=== PATIENT | male | born 1930 | race African-American/Black ===

== ENCOUNTER → 2016-11-20 | Outpatient (CLI) | payer MEDICARE ==
[2014-09-18 14:30] VITALS: BP 95/65
[~2016-11-20] MED LIST: ASCO500T2 PO; ASPI-630 PO; CHOL100016 PO; CRESTOR10 MG PO; DIGO125T16 PO; FERR325T3 PO; FEXO60TA10 PO; GLIM4TAB2 PO; LISI10TA2 PO; LISI2.5T PO; METF500T4 PO; METO100T11 PO; NIAC1000 PO; OMEG500C PO; OMEP20CA5 PO; OSEL75CA PO; SPIR25TA3 PO; WARF4TAB7 PO; WARF5TAB7 PO
--- NOTE | 2016-11-20 15:59 | CARD ---
APPROVED REPORT EXAM: Two-dimensional and M-mode echocardiogram with Doppler and color Doppler. Other Information Quality : Average Rhythm : Atrial Fibrillation INDICATION Sick sinus syndrome Surgery/Intervention Pacemaker: 2D DIMENSIONS RVDd3.8 (2.9-3.5cm)Left Atrium(2D)5.0 (1.6-4.0cm) IVSd1.3 (0.7-1.1cm)Aortic Root(2D)4.2 (2.0-3.7cm) LVDd4.6 (3.9-5.9cm)LVOT Diameter2.7 (1.8-2.4cm) PWd1.1 (0.7-1.1cm)LVDs3.1 (2.5-4.0cm) FS (%) 22.9 %SV59.4 ml LVEF(%)51.5 (>50%) Aortic Valve AoV Peak Pedro.94.5cm/sAoV VTI18.1cm AO Peak GR.3.6mmHgLVOT Peak Pedro.84.1cm/s LVOT VTI 16.35cmAO Mean GR.2mmHg RAINE (VMAX)4.86ec4LMB (VTI)4.99cm2 Mitral Valve MV E Jzioazrk637.5cm/sMV DECEL RIMI809ht MV GYY73juGXS (PHT)4.67cm2 TDI E/Lateral E'8.7E/Medial E'15.6 Tricuspid Valve TR P. Fbngriwk108kv/sRAP AIGFRQCX10iuOv TR Peak Gr.97jySoWLSF88nxAp LEFT VENTRICLE The left ventricle is normal size. There is mild concentric left ventricular hypertrophy. Left ventri aminta systolic function is low normal. The Ejection Fraction is 50-55%. RIGHT VENTRICLE The right ventricle is mildly dilated. Systolic function is mildly reduced. There is a pacemaker lead in the right ventricle. ATRIA The left atrium is mild to moderately dilated. The right atrium is moderately to moderately severely dilated. A pacemaker is seen in the right atrium consistent with history. The interatrial septum is i ntact with no evidence for an atrial septal defect or patent foramen ovale as noted on 2-D or Doppler imaging. AORTIC VALVE The aortic valve is calcified but opens well. Doppler and Color Flow revealed trace aortic regurgitat ion. There is no significant aortic valvular stenosis. MITRAL VALVE The mitral valve is normal in structure and function. There is no evidence of mitral valve prolapse. There is no mitral valve stenosis. Doppler and Color-flow revealed moderate mitral regurgitation. TRICUSPID VALVE The tricuspid valve is normal in structure and function. Doppler and Color Flow revealed moderate tri cuspid regurgitation. The PA pressure was estimated at 60 mmHg. There is no tricuspid valve stenosis. PULMONIC VALVE The pulmonary valve is normal in structure and function. Doppler and Color Flow revealed mild pulmoni c valvular regurgitation. There is no pulmonic valvular stenosis. GREAT VESSELS The aortic root is enlarged at 4.2 cm. The ascending aorta is mildly dilated at 4.0 cm. The IVC is di lated and collapses <50% with inspiration. PERICARDIAL EFFUSION There is moderate left pleural effusion. There is no evidence of significant pericardial effusion. Critical Notification Critical Value: No <Conclusion> The left ventricle is normal size. Left ventricle systolic function is low normal. The Ejection Fraction is 50-55%. There is mild concentric left ventricular hypertrophy. The right atrium is moderately to moderately severely dilated. A pacemaker is seen in the right atrium consistent with history. There is no significant aortic valvular stenosis. Doppler and Color Flow revealed trace aortic regurgitation. Doppler and Color-flow revealed moderate mitral regurgitation. Doppler and Color Flow revealed moderate tricuspid regurgitation. The PA pressure was estimated at 60 mmHg. The aortic root is enlarged at 4.2 cm. The ascending aorta is mildly dilated at 4.0 cm.
== END | disposition home or self-care (01) ==
LOC: ECHO 13:15
PROVIDERS: ATTEND Internal Medicine Cardiovascular Disease
DX: I08.3 Combined rheumatic disorders of mitral, aortic and tricuspid valves (principal); I49.5 Sick sinus syndrome
CPT/HCPCS: 93306

== ENCOUNTER → 2018-06-11 | Outpatient (CLI) | payer MEDICARE ==
[2017-11-10 10:56] VITALS: BP 115/60
[~2018-06-11] MED LIST changes: +ATOR40TA59 PO; -DIGO125T16 PO; +DIGO125T79 PO; +DOCU-109 PO; +HYDR-3164 PO; +METF500T16 PO; -METF500T4 PO; +METO-247 PO; -METO100T11 PO; +METO100T7 PO; +PSYL575P4 PO; +REGADENOSON 0.4 MG/5 ML DISP.SYRIN. IV ONE; -SPIR25TA3 PO; +SPIR25TA5 PO; +TAMS0.4C2 PO; +WARF-31 PO; +WARF4TAB64 PO; -WARF4TAB7 PO; -WARF5TAB7 PO
--- NOTE | 2018-06-11 12:32 | RAD ---
MR#: [id number] Date of Study: 06/11/2018 Ordering Physician: SHAWN PARKER, Referring Physician: CHERELLE LOGAN Tech: ZAINA Fairchild, ARRT (R) (N) APPROVED REPORT Test Type: Pharmacological Stress Nurse/Tech: Abelardo Ferro RN Test Indications: CAD Cardiac History: heart disease, PPM Medications: SEE EMR Medical History: DM Resting ECG: afib underlying; V-paced Resting Heart Rate: 52 bpm Resting Blood Pressure: 113/65mmHg Pretest Chest Pain: No chest pain Nurse/Tech Notes lung sounds clear; S1 S2 Consent: The procedure was explained to the patient in lay terms. Informed consent was witnessed. Kvng eout was entered into [employer]. History and Stress Test performed by RT Adarsh (R) (N) Pharm. Details Pharmacologic stress testing was performed using 0.4mg per 5ml of regadenoson given intravenously ove r 7-10 seconds. Stress Symptoms Pt c/o of CP 2/10 at Stage R at 00:55. This was relieved to 0/10 by Stage R at 01:55. POST EXERCISE Reason for Termination: Infusion complete Max HR: 126 bpm Max Blood Pressure: 122/61mmHg Chest Pain: Yes. See stress symptoms Arrhythmia: No. occassional PVC ST Change: No. no change from resting EKG INTERPRETATION Stress EKG Conclusion: Baseline paced EKG, non-diagnostic. Imaging Protocol IMAGE PROTOCOL: Rest Tc-99m/stress Tc-99m 1 day Rest: Stress: Viability: Radiopharm.Tc99m KsjciuswdKg10s Sestamibi Zpzo81oGt 33mCi Img Date 06/11/2018 06/11/2018 Inj-Img Huds67zdn. 60min. Rest Admin Site:IV - Right AntecubitalAdministrator:RT Adarsh (R)(N) Stress Admin Site: IV - Right AntecubitalAdministrator: RT Adarsh (R)(N) STRESS DATA End Diast. Vol.144.0mlLVEDV index BSA69.0ml End Syst. Vol.47.0mlLVESV index BSA23.0ml Myocardial Jwnj988.0gEject. Fnqibruo33.0% Stress Scores Regional WT0.00Summed WT1.00 Regional WM0.00Summed WM3.00 LV Perfusion There is a small to moderate sized apical severe perfusion defect that is mostly reversible. Due to g ut artifact and pacing this may be a false positive result but cannot rule out inderlying ischemia/in farct. Wall Motion Grossly normal. EF 65% LV Perf. Quant 17 Seg. SSS8.00 17 Seg. SRS8.00 17 Seg. SDS5.00 Stress Defect Extent (% LAD)26.30Rest Defect Extent (% LAD)5.60Rev. Defect Extent (% LAD)23.10 Stress Defect Extent (% LCX) 28.80Rest Defect Extent (% LCX)22.50Rev. Defect Extent (% LCX)21.30 Stress Defect Extent (% RCA)11.10Rest Defect Extent (% RCA)35.60Rev. Defect Extent (% RCA)2.20 Stress Defect Extent (% DARI)25.20Rest Defect Extent (% DARI)18.70Rev. Defect Extent (% DARI)17.60 Other Information Quality:Average Risk Assessment: Moderate Risk Conclusion 1. Non-diagnostic EKG due to pacing artifact 2. Small to moderate sized, mostly reversible apical perfusion defect suggestive of mild ischemia and prior infarct. (Due to subdiaphragmatic activity, artifact cannot be ruled out) 3. Normal EF at > 65% 4. Moderate risk study Signed by : Prosper Naranjo, Electronically Approved : 06/11/2018 12:32:18
== END | disposition home or self-care (01) ==
LOC: NM 07:34
PROVIDERS: ATTEND Internal Medicine Cardiovascular Disease
DX: I25.10 Atherosclerotic heart disease of native coronary artery without angina pectoris (principal); E11.9 Type 2 diabetes mellitus without complications; I49.3 Ventricular premature depolarization; Z95.0 Presence of cardiac pacemaker; Z79.01 Long term (current) use of anticoagulants
CPT/HCPCS: 78452; 93017; 96374; A9500; J2785

== ENCOUNTER 2018-08-12 06:47 | Outpatient (CLI) | payer MEDICARE ==
[~2018-08-12] VITALS: Ht 182.9 cm; Wt 89.4 kg
[2018-08-12] VITALS (14 sets, daily range): BP systolic 91–135; BP diastolic 55–77
[~2018-08-12 06:47] MED LIST changes: -ATOR40TA59 PO; -DOCU-109 PO; -HYDR-3164 PO; -PSYL575P4 PO; -REGADENOSON 0.4 MG/5 ML DISP.SYRIN. IV ONE
[2018-08-12] MEDS ORDERED: ATOR40TA59 PO (07:09)
[2018-08-12 07:47] LABS: HEMATOCRIT 45.6 % (39.0-53.0); HEMOGLOBIN 14.2 g/dL (13.0-17.5); RED BLOOD COUNT 4.88 x10^6/uL (4.30-5.70); RED CELL DISTRIBUTION WIDTH 14.6 % (11.5-14.5); WHITE BLOOD COUNT 8.8 x10^3/uL (4.0-11.0)
[2018-08-12] MEDS ORDERED: IODIXANOL 320 MG/ML 100 ML VIAL. ONE ×2 (07:50→09:33)
[2018-08-12] MEDS ORDERED: LIDOCAINE 1% PF 2 ML VIAL. ONE (07:50)
[2018-08-12 08:08] LABS: CALCIUM 9.5 mg/dL (8.5-10.1); CREATININE 1.1 mg/dL (0.7-1.3); GFR 76.8; POTASSIUM 3.8 mmol/L (3.5-5.1)
[2018-08-12] MEDS ORDERED: MIDAZOLAM HCL/PF 2 MG/2 ML VIAL. ONE (08:24)
[2018-08-12] MEDS ORDERED: NITROGLYCERIN 200 MCG/2 ML SYRINGE FOR CATH/VASC LAB. ONE (08:24)
[2018-08-12] MEDS ORDERED: VERAPAMIL 5 MG/2 ML VIAL. ONE (08:24)
[2018-08-12] MEDS ORDERED: fentaNYL PF VIAL 100 MCG/2 ML VIAL ONE (08:24)
[2018-08-12] MEDS ORDERED: HEPARIN for IV BOLUS 10,000 UNIT/10 ML VIAL. ONE (08:24)
[2018-08-12] MEDS ORDERED: LIDOCAINE 1% Multi-Dose 20 ML VIAL. ONE (09:24)
[2018-08-12] MEDS ORDERED: LIDOCAINE 1% PF 2 ML VIAL. INJ ONE (09:45)
[2018-08-12] MEDS ORDERED: VERAPAMIL 5 MG/2 ML VIAL. IART ONE (09:45)
[2018-08-12] MEDS ORDERED: IODIXANOL 320 MG/ML 100 ML VIAL. IART ONE (09:45)
[2018-08-12] MEDS ORDERED: fentaNYL PF VIAL 100 MCG/2 ML VIAL IV ONE (09:45)
[2018-08-12] MEDS ORDERED: MIDAZOLAM HCL/PF 2 MG/2 ML VIAL. IV ONE (09:45)
[2018-08-12] MEDS ORDERED: HEPARIN for IV BOLUS 10,000 UNIT/10 ML VIAL. IART ONE (09:45)
[2018-08-12] MEDS ORDERED: NITROGLYCERIN 200 MCG/2 ML SYRINGE FOR CATH/VASC LAB. IART ONE (09:45)
[2018-08-12] MEDS ORDERED: LIDOCAINE 1% Multi-Dose 20 ML VIAL. INJ ONE (09:45)
[2018-08-12] MEDS ORDERED: IV 1/2 NORMAL SALINE 1,000 ML IV SCH (10:08)
--- NOTE | 2018-08-12 10:08 | PDOC ---
MODERATE SEDATION ASSESSMENT RISKS/ALTERNATIVES Risks/Alternatives Risks and alternatives of this type of sedation and procedure discussed with: RISK/ALTERNATIVES: Patient H & P ON CHART H & P H & P on chart and reviewed for co-morbid conditions and appropriate labs. H&P ON CHART: Yes STATUS PREG STATUS ASSESSED: N/A MEDS/ALLERGIES REVIEWED Meds/Allergies Reviewed Medications and Allergies including time and route of recently administered narcotics and sedatives. MEDS/ALLERGIES REVIEWED: Yes ASA RATING ASA RATING: II AIRWAY ASSESSMENT Airway Assessment Airway patency, oral function limitations, presence of caps, crowns, dentures, partials, and ability to extend neck assessed. AIRWAY ASSESSMENT: Yes MALLAMPATI SCORE MALLAMPATI SCORE: II PRE-SEDATION ASSESSMENT PRE-SEDATION ASSESSMENT: Yes SHAWN PARKER MD August 12, 2018 10:08
--- NOTE | 2018-08-12 10:21 | CARD ---
MR#: [id number] Date of Study: 08/12/2018 Ordering Physician: SHAWN SANTOYO, Referring Physician: SHAWN SANTOYO Tech: RT Verónica (R) APPROVED REPORT Technologist: RT Verónica (R) Nurse: Maryam Vaca R.N. Procedure(s) performed: Left heart catheterization, selective coronary angiography and left ventricul ography INDICATION The indication(s) include : Chest pain and positive stress test. Heart Failure Heart Failure: No PROCEDURE NARRATIVE After explaining the risks, benefits and alternative options, informed consent was obtained from mikhail ent. Patient was brought to the cardiac [employer] and right wrist was prepped and draped in the usual fashion after confirming a positive modified Renzo's test. Arterial access was obtained in the rig t radial artery and a 6 Surinamese sheath was inserted. 6 Surinamese JL 3.5 catheter was used to perform vish ective angiography of the left coronary artery. Several attempts to engage the right coronary artery using 6 Surinamese Sixto followed by 6 Surinamese JR4, 3 DRC, AL 0.75 guide were unsuccessful due to combina tion of subclavian tortuosity and patient's tall stature. His right groin was prepped and draped, 10 mL of 2% lidocaine infiltrated into the skin and subcutaneous tissues and arterial access was obtaine d the right common femoral artery with placement of 6 Surinamese sheath. Subsequently, 6 Surinamese AL 0.75 c atheter was used to perform selective angiography of the right coronary artery. Finally, 6 Surinamese pig tail catheter was used to perform left ventriculography. Patient tolerated the procedure well. Hemos tasis was achieved using TR band in the right wrist and mynx closure device in the right groin. Ther e were no immediate complications. The following findings were noted. FINDINGS 1. Hemodynamics: Left ventricular end-diastolic pressure of 13 mmHg. No pullback gradient across th e aortic valve. 2. Left ventriculography: Normal left ventricle systolic function with ejection fraction estimated at 60%. No significant mitral regurgitation seen. 3. Coronary angiography: a. The left main coronary artery arose from the left sinus of Valsalva, gave rise to the left anteri or descending and left circumflex arteries and did not show any significant stenosis. b. The left anterior descending artery showed 100% chronic total occlusion in the midsegment with fa int distal reconstitution from left to left collaterals, described in prior cardiac catheterization. c. The left circumflex artery did not show any significant stenosis. d. The right coronary artery was a large and dominant vessel arising from the right sinus of Valsalv a that did not show any significant stenosis. Conclusion 1. 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 No other stenoses were noted. 2. Normal left ventricle systolic function with ejection fraction estimated at 60%. Recommendations Medical Therapy Signed by : Shawn Santoyo, Electronically Approved : 08/12/2018 10:21:02
--- NOTE | 2018-08-12 11:34 | NUR ---
Pt c/o firm area 2 inches above the groin site, in the lower right abdominal area, with pain at this area. Pt groin site dressing c/d/i, at the insertion site right groin soft; without oozing, bruising, or swelling. Area of firmness 2 inches above the groin site, was softened with holding pressure for [address] Santoyo notified and he assessed pt. Abdominal area soft and WNL after holding pressure. Right abdominal ultrasound ordered stat.
--- NOTE | 2018-08-12 12:15 | RAD ---
Limited duplex sonography of the right lower extremity Clinical indications: Right groin pain and hardness after catheterization. FINDINGS: Duplex sonography of the right groin area was performed including grayscale evaluation and color flow and waveform spectral analysis. Normal-appearing right groin lymph node is seen measuring 29 mm in greatest dimension. Within the area of hardness of the right groin, a complex solid appearing mass lesion is seen measuring 6.1 cm x 4.3 cm x 4.0 cm in size. This is located superficial to the right common femoral artery and right common femoral vein and both of these vessels are patent. There is no color Doppler flow is seen extending into this mass and therefore no pseudoaneurysm is seen. Therefore, this is consistent with a hematoma. IMPRESSION: Hematoma of the right groin. No pseudoaneurysm is evident. Electronically signed by: Carson Medrano MD (08/12/2018 12:11 PM) [facility]
--- NOTE | 2018-08-12 13:38 | NUR ---
Discharge Note: FEARSJR,EDDIECCL Discharge instructions and discharge home medications reviewed with Patient and a copy given. All questions have been answered and understanding verbalized. The following instructions and handouts were given: radial site care, groin site care, moderate sedation. Discontinued left AC PIV. Patient discharged to home with family
[2018-09-09] MEDS ORDERED: HYDR-3164 PO (13:10)
[2018-09-09] MEDS ORDERED: DOCU-109 PO (13:12)
[2018-09-09] MEDS ORDERED: PSYL575P4 PO (13:12)
== END 2018-08-12 13:40 | disposition home or self-care (01) ==
LOC: CCL 06:47
PROVIDERS: ATTEND Internal Medicine Cardiovascular Disease
DX: I25.10 Atherosclerotic heart disease of native coronary artery without angina pectoris (principal); I25.82 Chronic total occlusion of coronary artery
CPT/HCPCS: 36415; 80048; 85027; 85610; 93458; 93926; 99152; 99153; C1769; C1887; C1892; J1644; J2250; J3010; J3490; Q9967; C1760; G0269; C1771

== ENCOUNTER → 2018-09-06 | Outpatient (CLI) | payer MEDICARE ==
[2018-08-12 13:34] VITALS: BP 110/66
[~2018-09-06] MED LIST changes: +ATOR40TA59 PO; +DOCU-109 PO; +HYDR-3164 PO; +PSYL575P4 PO
[2018-09-06 13:42] LABS: BASO # 0.1 x10^3/uL (0.0-0.2); BASO % 2 % (0-3); EOS # 0.1 x10^3/uL (0.0-0.7); EOS % 2 % (0-3); HEMATOCRIT 40.1 % (39.0-53.0); HEMOGLOBIN 12.6 g/dL (13.0-17.5); LYMPH # 1.5 x10^3/uL (1.0-4.8); LYMPH % 21 % (24-48); MEAN CORPUSCULAR HEMOGLOBIN 30 pg (25-35); MEAN CORPUSCULAR HGB CONC 31 g/dL (31-37); MEAN CORPUSCULAR VOLUME 94 fL (79-100); MONO # 0.5 x10^3/uL (0.0-1.1); MONO % 7 % (0-9); NEUT # 4.8 x10^3uL (1.8-7.7); NEUT % 69 % (31-73); PLATELET COUNT 367 x10^3/uL (140-400); RED BLOOD COUNT 4.26 x10^6/uL (4.30-5.70); RED CELL DISTRIBUTION WIDTH 15.8 % (11.5-14.5); WHITE BLOOD COUNT 7.1 x10^3/uL (4.0-11.0)
[2018-09-06 13:55] LABS: PROTHROMBIN TIME PATIENT 18.8 SEC (11.7-14.0)
[2018-09-06 14:51] LABS: ALBUMIN 3.1 g/dL (3.4-5.0); ALBUMIN/GLOBULIN RATIO 0.9 (1.0-1.7); CALCIUM 9.1 mg/dL (8.5-10.1); CREATININE 1.1 mg/dL (0.7-1.3); GFR 76.8; POTASSIUM 3.9 mmol/L (3.5-5.1); TOTAL BILIRUBIN 0.9 mg/dL (0.2-1.0); TOTAL PROTEIN 6.7 g/dL (6.4-8.2)
== END | disposition home or self-care (01) ==
LOC: SURGPAT 13:05
PROVIDERS: ATTEND Specialist
DX: K40.90 Unilateral inguinal hernia, without obstruction or gangrene, not specified as recurrent (principal); E11.9 Type 2 diabetes mellitus without complications; I11.0 Hypertensive heart disease with heart failure; I50.9 Heart failure, unspecified; Z79.899 Other long term (current) drug therapy
CPT/HCPCS: 36415; 80053; 85025; 85610

== ENCOUNTER → 2018-09-09 | Day surgery (SDC) | payer MEDICARE ==
[~2018-09-09] VITALS: Ht 182.9 cm; Wt 88.5 kg
[~2018-09-09] MED LIST changes: +BUPIVAC MPF-EPI 0.5%-1:200000 30 ML VIAL. ONE; +DEXAMETHASONE SOD PHOS 4 MG/ML VIAL ONE; +GLYCOPYRROLATE 1 MG/5 ML SYRINGE. ONE; +GLYCOPYRROLATE 1 MG/5 ML VIAL. ONE; +HYDROcodone/APAP 5/325MG 1 TAB TABLET PO ONE; +HYDROmorphone 2 MG/ML VIAL IV PRN; +IV RINGERS,LACTATED 1000ML 1,000 ML IV SCH; +LIDOCAINE 1% PF 2 ML VIAL. ID PRN; +LIDOCAINE 2% PF 5 ML VIAL. ONE; +MORPHINE SULFATE 2 MG/ML VIAL. IV PRN; +NEOSTIGMINE METHYLSULFATE 5 MG/5 ML SYRINGE. ONE; +ONDANSETRON PF 4 MG/2 ML VIAL. IV PRN; +ONDANSETRON PF 4 MG/2 ML VIAL. ONE; +PROCHLORPERAZINE 10 MG/2 ML VIAL. IV PRN; +PROPOFOL 20 ML IV ONE; +ROCURONIUM 50 MG/5 ML VIAL. ONE; +SEVOFLURANE 61 TO 120 MINUTES. IH ONE; +SEVOFLURANE > 120 MINUTES. IH ONE; +ceFAZolin 1GM IVPB FOR OMNI 1 GM/50 ML BAG IV ONE; +fentaNYL PF VIAL 100 MCG/2 ML VIAL IV PRN; +fentaNYL PF VIAL 100 MCG/2 ML VIAL ONE
--- NOTE | 2018-09-09 06:44 | PREOP HP ---
DATE OF SERVICE: 09/09/2018 HISTORY OF PRESENT ILLNESS: The patient is referred because of left inguinal mass that is becoming larger and being more painful. Apparently, the history shows that he had a small mass in the right groin for some years. It has gotten larger with time and now causes him pain and tenderness when he increases intraabdominal pressure. The GI function has been normal. He does notice a mass there in the left inguinal area. PAST MEDICAL HISTORY: Shows normal childhood diseases. I think he does have hypertension and does have a pacemaker in for cardiovascular disease. He has had a laparoscopic cholecystectomy done in the past and also has had vein stripping done many years ago. He has not had other surgery. ALLERGIES: No allergies. MEDICATIONS: He does take medicine for hypertension and cardiovascular disease, but no other medicine. SOCIAL HISTORY: Shows that he does not drink, smoke or use illicit drugs. FAMILY HISTORY: Noncontributory relative to this. REVIEW OF SYSTEMS: Negative except for this pain in the right groin. He does have difficulty walking as he is I think about 89 years old, I do not have his date. PHYSICAL EXAMINATION: GENERAL: Shows an alert male in no acute distress. HEAD, EARS, EYES, NOSE AND THROAT: Grossly normal. CHEST: Clear to auscultation. HEART: I could see the pacemaker that was in place and he did have a systolic murmur, about a 2/6 systolic murmur at the mitral area. I did not hear anything in the aortic area and no diastolic blow. ABDOMEN: Negative. No hernia from previous surgery on the laparoscopic procedure. In the right groin, there was a mass that was tender to touch. That was not red, hot, or excruciating. It did reduce somewhat when he laid down, but could not get it totally reduced. The testicles were otherwise unremarkable as was the penis. EXTREMITIES: Grossly normal. IMPRESSION: 1. 1. Arteriosclerotic heart disease. 2. 2. Hypertension. 3. 3. Left inguinal hernia. ALQUITA INFANTE MD DR: QUIANA/lorraine JOB#: [id number] / [id number] CHLOE
[2018-09-09 09:18] LABS: BASO # 0.1 x10^3/uL (0.0-0.2); BASO % 1 % (0-3); EOS # 0.2 x10^3/uL (0.0-0.7); EOS % 3 % (0-3); HEMATOCRIT 39.6 % (39.0-53.0); HEMOGLOBIN 12.7 g/dL (13.0-17.5); LYMPH # 1.5 x10^3/uL (1.0-4.8); LYMPH % 22 % (24-48); MEAN CORPUSCULAR HEMOGLOBIN 30 pg (25-35); MEAN CORPUSCULAR HGB CONC 32 g/dL (31-37); MEAN CORPUSCULAR VOLUME 94 fL (79-100); MONO # 0.6 x10^3/uL (0.0-1.1); MONO % 9 % (0-9); NEUT # 4.6 x10^3uL (1.8-7.7); NEUT % 65 % (31-73); PLATELET COUNT 307 x10^3/uL (140-400); RED BLOOD COUNT 4.21 x10^6/uL (4.30-5.70)
--- NOTE | 2018-09-09 09:28 | PDOC ---
SURGICAL PROGRESS NOTE Subjective No change in dictated H&P. Vital Signs Vital Signs Date Time Temp Pulse Resp B/P (MAP) Pulse Ox O2 Delivery O2 Flow Rate FiO2 09/09/18 08:49 97.2 53 16 137/76 96 Room Air 97.2 Labs Laboratory Tests Test 09/09/18 08:30 09/09/18 09:00 Prothrombin Time 17.0 SEC (11.7-14.0) Prothromb Time International Ratio 1.4 (0.8-1.1) Activated Partial Thromboplast Time 37 SEC (24-38) White Blood Count 7.0 x10^3/uL (4.0-11.0) Red Blood Count 4.21 x10^6/uL (4.30-5.70) Hemoglobin 12.7 g/dL (13.0-17.5) Hematocrit 39.6 % (39.0-53.0) Mean Corpuscular Volume 94 fL (79-100) Mean Corpuscular Hemoglobin 30 pg (25-35) Mean Corpuscular Hemoglobin Concent 32 g/dL (31-37) Red Cell Distribution Width 16.0 % (11.5-14.5) Platelet Count 307 x10^3/uL (140-400) Neutrophils (%) (Auto) 65 % (31-73) Lymphocytes (%) (Auto) 22 % (24-48) Monocytes (%) (Auto) 9 % (0-9) Eosinophils (%) (Auto) 3 % (0-3) Basophils (%) (Auto) 1 % (0-3) Neutrophils # (Auto) 4.6 x10^3uL (1.8-7.7) Lymphocytes # (Auto) 1.5 x10^3/uL (1.0-4.8) Monocytes # (Auto) 0.6 x10^3/uL (0.0-1.1) Eosinophils # (Auto) 0.2 x10^3/uL (0.0-0.7) Basophils # (Auto) 0.1 x10^3/uL (0.0-0.2) Laboratory Tests Test 09/09/18 08:30 09/09/18 09:00 Prothrombin Time 17.0 SEC (11.7-14.0) Prothromb Time International Ratio 1.4 (0.8-1.1) Activated Partial Thromboplast Time 37 SEC (24-38) White Blood Count 7.0 x10^3/uL (4.0-11.0) Red Blood Count 4.21 x10^6/uL (4.30-5.70) Hemoglobin 12.7 g/dL (13.0-17.5) Hematocrit 39.6 % (39.0-53.0) Mean Corpuscular Volume 94 fL (79-100) Mean Corpuscular Hemoglobin 30 pg (25-35) Mean Corpuscular Hemoglobin Concent 32 g/dL (31-37) Red Cell Distribution Width 16.0 % (11.5-14.5) Platelet Count 307 x10^3/uL (140-400) Neutrophils (%) (Auto) 65 % (31-73) Lymphocytes (%) (Auto) 22 % (24-48) Monocytes (%) (Auto) 9 % (0-9) Eosinophils (%) (Auto) 3 % (0-3) Basophils (%) (Auto) 1 % (0-3) Neutrophils # (Auto) 4.6 x10^3uL (1.8-7.7) Lymphocytes # (Auto) 1.5 x10^3/uL (1.0-4.8) Monocytes # (Auto) 0.6 x10^3/uL (0.0-1.1) Eosinophils # (Auto) 0.2 x10^3/uL (0.0-0.7) Basophils # (Auto) 0.1 x10^3/uL (0.0-0.2) LAQUITA INFANTE MD Sep 09, 2018 09:28
--- NOTE | 2018-09-09 09:31 | PDOC ---
SURGICAL PROGRESS NOTE Subjective Op Note: Surgeon.....................................Infante Pre op diag.................................left inguinal hernia Post op diag...............................left inguinal hernia...incarcerated anesthesia.................................General Procedure..................................repair incarc. left inguinal hernia Drains........................................none Fluids........................................see anesthesia sheet Blood loss.................................15cc Condition...................................satisfactorily Vital Signs Vital Signs Date Time Temp Pulse Resp B/P (MAP) Pulse Ox O2 Delivery O2 Flow Rate FiO2 09/09/18 08:49 97.2 53 16 137/76 96 Room Air 97.2 Labs Laboratory Tests Test 09/09/18 08:30 09/09/18 09:00 Prothrombin Time 17.0 SEC (11.7-14.0) Prothromb Time International Ratio 1.4 (0.8-1.1) Activated Partial Thromboplast Time 37 SEC (24-38) White Blood Count 7.0 x10^3/uL (4.0-11.0) Red Blood Count 4.21 x10^6/uL (4.30-5.70) Hemoglobin 12.7 g/dL (13.0-17.5) Hematocrit 39.6 % (39.0-53.0) Mean Corpuscular Volume 94 fL (79-100) Mean Corpuscular Hemoglobin 30 pg (25-35) Mean Corpuscular Hemoglobin Concent 32 g/dL (31-37) Red Cell Distribution Width 16.0 % (11.5-14.5) Platelet Count 307 x10^3/uL (140-400) Neutrophils (%) (Auto) 65 % (31-73) Lymphocytes (%) (Auto) 22 % (24-48) Monocytes (%) (Auto) 9 % (0-9) Eosinophils (%) (Auto) 3 % (0-3) Basophils (%) (Auto) 1 % (0-3) Neutrophils # (Auto) 4.6 x10^3uL (1.8-7.7) Lymphocytes # (Auto) 1.5 x10^3/uL (1.0-4.8) Monocytes # (Auto) 0.6 x10^3/uL (0.0-1.1) Eosinophils # (Auto) 0.2 x10^3/uL (0.0-0.7) Basophils # (Auto) 0.1 x10^3/uL (0.0-0.2) Laboratory Tests Test 09/09/18 08:30 09/09/18 09:00 Prothrombin Time 17.0 SEC (11.7-14.0) Prothromb Time International Ratio 1.4 (0.8-1.1) Activated Partial Thromboplast Time 37 SEC (24-38) White Blood Count 7.0 x10^3/uL (4.0-11.0) Red Blood Count 4.21 x10^6/uL (4.30-5.70) Hemoglobin 12.7 g/dL (13.0-17.5) Hematocrit 39.6 % (39.0-53.0) Mean Corpuscular Volume 94 fL (79-100) Mean Corpuscular Hemoglobin 30 pg (25-35) Mean Corpuscular Hemoglobin Concent 32 g/dL (31-37) Red Cell Distribution Width 16.0 % (11.5-14.5) Platelet Count 307 x10^3/uL (140-400) Neutrophils (%) (Auto) 65 % (31-73) Lymphocytes (%) (Auto) 22 % (24-48) Monocytes (%) (Auto) 9 % (0-9) Eosinophils (%) (Auto) 3 % (0-3) Basophils (%) (Auto) 1 % (0-3) Neutrophils # (Auto) 4.6 x10^3uL (1.8-7.7) Lymphocytes # (Auto) 1.5 x10^3/uL (1.0-4.8) Monocytes # (Auto) 0.6 x10^3/uL (0.0-1.1) Eosinophils # (Auto) 0.2 x10^3/uL (0.0-0.7) Basophils # (Auto) 0.1 x10^3/uL (0.0-0.2) LAQUITA INFANTE MD Sep 09, 2018 09:31
[2018-09-09 09:37] LABS: CALCIUM 9.3 mg/dL (8.5-10.1); GFR 85.7; POTASSIUM 3.9 mmol/L (3.5-5.1)
[2018-09-09 09:51] LABS: ALBUMIN 3.1 g/dL (3.4-5.0); ALBUMIN/GLOBULIN RATIO 0.9 (1.0-1.7); TOTAL PROTEIN 6.6 g/dL (6.4-8.2)
[2018-09-09 10:51] LABS: PLT ESTIMATE ADEQUATE (ADEQUATE)
[2018-09-09 13:29] VITALS: BP 115/66
--- NOTE | 2018-09-10 12:57 | OP ---
DATE OF SURGERY: 09/09/2018 SURGEON: Edmundo Infante M.D. PREOPERATIVE DIAGNOSIS: Incarcerated left inguinal hernia. POSTOPERATIVE DIAGNOSIS: Incarcerated left inguinal hernia. ANESTHESIA: General. PROCEDURE: Repair of incarcerated left inguinal hernia, had actually herniations on both sides of the cord structures at the internal inguinal ring. TECHNIQUE: Under general anesthesia, the patient was properly prepped and draped in the routine fashion. A skin incision following the skin lines in the right groin was done with a 15 blade and carried through the skin. The subcutaneous was then dissected in the similar direction, going beneath the Ruy's fascia down to the external aponeurosis of the oblique. A small incision was made in the direction of the fibers with a 15 blade and then the scissors were passed under this to make certain we did not injure the nerve and opened this up to the external inguinal ring. The mass and the cord were seen and with decreased pressure, it was reduced. The sac stayed higher. We then dissected the cord structures from the surrounding structures as there were adhesions there. We did this with Metzenbaum scissors and also finger dissection. At the pubic tubercle, we went around the cord structures and placed a [place] drain and divided some of the cremasteric to the cord structures with cautery. The patient has had an elevated INR, which was 1.4 and we, therefore, went a little more cautious to decrease any problem with bleeding. We then slowly dissected the cord. We could see the sac and also a mass lateral to the cord structures. We dissected the lateral one first. It appeared to be only fat, but it was long, being about 6 inches long and about 2 inches wide. This was reduced and inverted when the repair was done. We then dissected the cord structures using Metzenbaum scissors and also pushing the fibers away with gauze pad. We did this well up into the internal inguinal ring and this could be reduced easily. We inspected all areas. There was no further bleeding and as such, an extra-large PerFix plug was placed as the sac was inverted and this was placed in, went up into the internal inguinal ring and sutured in place using 4-0 interrupted Vicryl. A similar procedure was to invert fat structures lateral to the cord. We decided not to amputate this, inverted it and then did a similar procedure to secure it with a well-placed extra-large PerFix plug. We then proceeded to put the patch on at the pubic tubercle. We took two #0 Prolene sutures at the pubic tubercle and the patch. I think the patch was Phasix, as they did not have any other kind at present. We then ran the 1-0 Prolene suture, taking the shelving edge of the Poupart's ligament and the patch and ran it well up past the internal inguinal ring. The medial suture was used as we approximated the transversalis fascia in the patch and ran it well around the internal inguinal ring back to the cord structures. Not mentioned before, we did make an incision in the past so that we can get the cord structures through there. This having been done and the procedure terminated, we now approximated this opening where the cord structure was, so that it would not be too tight for the cord to go through. We did this with interrupted 2-0 Prolene. A 0.5% Marcaine and epinephrine were then used to anesthetize the surgical site at the external oblique aponeurosis and the Poupart's ligament and the transversalis fascia. We did this and then cord structures and all were placed back in its normal position. The nerve was not damaged and all was well. We then closed the external oblique aponeurosis using 2-0 continuous Prolene suture and tied this. This was likewise anesthetized with 0.5% Marcaine and epinephrine. The wound was then irrigated with copious amounts of saline and then the subq was approximated using interrupted 4-0 Vicryl and the skin was closed using a subcuticular 5-0 Vicryl. The procedure was now terminated and sterile Tegaderm dressings were applied. The blood loss during the procedure was probably about 10-12 mL. Fluids given can be obtained from the anesthesia sheet. No drains were used and the condition of the patient was satisfactory as he was returned to the recovery room. EDMUNDO INFANTE MD DR: QUIANA/lorraine JOB#: [id number] / [id number]
== END ==
LOC: SURG 07:40
PROVIDERS: ATTEND Specialist
DX: K40.30 Unilateral inguinal hernia, with obstruction, without gangrene, not specified as recurrent (principal); I10 Essential (primary) hypertension; I25.10 Atherosclerotic heart disease of native coronary artery without angina pectoris
CPT/HCPCS: 49507; A7015; C1781; J0690; J1100; J2001; J2405; J2704; J2710; J3010; J3490; 36415; 80053; 85025; 85610; 85730

== ENCOUNTER 2018-09-12 01:39 | Inpatient (IN) | payer MEDICARE ==
[~2018-09-12] VITALS: Ht 185.4 cm; Wt 88.3 kg
[2018-09-12] VITALS (8 sets, daily range): BP systolic 97–164; BP diastolic 53–98
[~2018-09-12 01:39] MED LIST changes: -BUPIVAC MPF-EPI 0.5%-1:200000 30 ML VIAL. ONE; -DEXAMETHASONE SOD PHOS 4 MG/ML VIAL ONE; -GLYCOPYRROLATE 1 MG/5 ML SYRINGE. ONE; -GLYCOPYRROLATE 1 MG/5 ML VIAL. ONE; -HYDROcodone/APAP 5/325MG 1 TAB TABLET PO ONE; -HYDROmorphone 2 MG/ML VIAL IV PRN; -IV RINGERS,LACTATED 1000ML 1,000 ML IV SCH; -LIDOCAINE 1% PF 2 ML VIAL. ID PRN; -LIDOCAINE 2% PF 5 ML VIAL. ONE; -MORPHINE SULFATE 2 MG/ML VIAL. IV PRN; -NEOSTIGMINE METHYLSULFATE 5 MG/5 ML SYRINGE. ONE; -ONDANSETRON PF 4 MG/2 ML VIAL. IV PRN; -ONDANSETRON PF 4 MG/2 ML VIAL. ONE; -PROCHLORPERAZINE 10 MG/2 ML VIAL. IV PRN; -PROPOFOL 20 ML IV ONE; -ROCURONIUM 50 MG/5 ML VIAL. ONE; -SEVOFLURANE 61 TO 120 MINUTES. IH ONE; -SEVOFLURANE > 120 MINUTES. IH ONE; -ceFAZolin 1GM IVPB FOR OMNI 1 GM/50 ML BAG IV ONE; -fentaNYL PF VIAL 100 MCG/2 ML VIAL IV PRN; -fentaNYL PF VIAL 100 MCG/2 ML VIAL ONE
[2018-09-12] MEDS ORDERED: VANCOMYCIN PER PHARMACY MC PRN (02:15)
[2018-09-12] MEDS ORDERED: IV NORMAL SALINE 1000ML BAG 1,000 ML IV ONE ×2 (02:30→20:15)
[2018-09-12] MEDS ORDERED: PIPERACILLIN/TAZOBACTAM 4.5 GM in IV NORMAL SALINE 100ML 100 ML IV ONE (02:30)
[2018-09-12] MEDS ORDERED: ACETAMINOPHEN 500 MG TABLET PO ONE (02:30)
[2018-09-12 02:31] LABS: BASO # 0.1 x10^3/uL (0.0-0.2); BASO % 1 % (0-3); EOS % 0 % (0-3); HEMATOCRIT 38.1 % (39.0-53.0); HEMOGLOBIN 12.1 g/dL (13.0-17.5); LYMPH % 6 % (24-48); MEAN CORPUSCULAR HEMOGLOBIN 30 pg (25-35); MEAN CORPUSCULAR HGB CONC 32 g/dL (31-37); MEAN CORPUSCULAR VOLUME 94 fL (79-100); MONO # 0.6 x10^3/uL (0.0-1.1); MONO % 4 % (0-9); NEUT # 14.2 x10^3uL (1.8-7.7); NEUT % 90 % (31-73); PLATELET COUNT 305 x10^3/uL (140-400); RED BLOOD COUNT 4.05 x10^6/uL (4.30-5.70); RED CELL DISTRIBUTION WIDTH 15.8 % (11.5-14.5); WHITE BLOOD COUNT 15.8 x10^3/uL (4.0-11.0)
[2018-09-12 02:37] LABS: PROTHROMBIN TIME PATIENT 21.2 SEC (11.7-14.0)
[2018-09-12] MEDS ORDERED: IV NORMAL SALINE 1000ML BAG 2,340 ML IV SCH (02:47)
--- NOTE | 2018-09-12 02:47 | PHYS DOC ---
Past Medical History Past Medical History: A-Fib, CAD, CHF, Diabetes-Type II, High Cholesterol, Heart Disease, Hypertension Additional Past Medical Histor: CPAP @ NOC, Past Surgical History: Cholecystectomy, Pacemaker Additional Past Surgical Histo: LEG VEINS, hernia repair, Pacemaker Alcohol Use: None Drug Use: None Adult General Chief Complaint Chief Complaint: FEVER HPI HPI Patient is an 87-year-old male who presents tonight with altered mental status, slurred speech and fever. Patient was in the hospital recently with hernia repair. Family states he's been coughing and had some complaints of shortness of breath. Tonight the states he was just not acting himself and she was concerned that he may have had a stroke. Denies any nausea or vomiting. He states he has not been eating normally.[] Review of Systems Review of Systems Constitutional: Reports fever[] Eyes: Denies change in visual acuity, redness, or eye pain [] HENT: Denies nasal congestion or sore throat [] Respiratory: Reports a cough[] Cardiovascular: No additional information not addressed in HPI [] GI: Denies abdominal pain, nausea, vomiting, bloody stools or diarrhea [] : Denies dysuria or hematuria [] Musculoskeletal: Denies back pain or joint pain [] Integument: Denies rash or skin lesions [] Neurologic: Some slurred speech[] Endocrine: Denies polyuria or polydipsia [] All other systems were reviewed and found to be within normal limits, except as documented in this note. Current Medications Current Medications Current Medications Medications (Trade) Dose Ordered Sig/Rakesh Start Time Stop Time Status Last Admin Dose Admin Acetaminophen (Tylenol) 1,000 mg 1X ONCE 09/12/18 02:30 09/12/18 02:31 DC 09/12/18 03:11 1,000 MG Piperacillin Sod/ Tazobactam Sod 4.5 gm/Sodium Chloride 100 ml @ 200 mls/hr 1X ONCE 09/12/18 02:30 09/12/18 02:59 DC 09/12/18 03:03 200 MLS/HR Sodium Chloride 1,000 ml @ 1,000 mls/hr 1X ONCE 09/12/18 02:30 09/12/18 03:29 DC 09/12/18 03:02 1,000 MLS/HR Vancomycin HCl (Vanco Per Pharmacy) 1 each PRN DAILY PRN 09/12/18 02:15 09/12/18 13:38 DC 09/12/18 05:25 1 EACH Allergies Allergies Allergies Coded Allergies Type Severity Reaction Last Updated Verified No Known Drug Allergies 09/09/18 No Physical Exam Physical Exam Constitutional: Frail, elderly, appears acutely ill. [] HENT: Normocephalic, atraumatic, bilateral external ears normal, uterus membranes are dry, no oral exudates, nose normal. [] Eyes: PERRLA, EOMI, conjunctiva normal, no discharge. [] Neck: Normal range of motion, no tenderness, supple, no stridor. [] Cardiovascular:Heart rate regular rhythm, no murmur [] Lungs & Thorax: Rales left base, no wheezes[] Abdomen: Bowel sounds normal, soft, no tenderness, no masses, no pulsatile masses. [] Skin: Warm, dry, no erythema, no rash. [] Back: No tenderness, no CVA tenderness. [] Extremities: No tenderness, no cyanosis, no clubbing, ROM intact, no edema. [] Neurologic: Alert, pleasant, normal motor function, normal sensory function, no focal deficits noted. [] Psychologic: Affect normal, judgement normal, mood normal. [] Current Patient Data Vital Signs Vital Signs Date Time Temp Pulse Resp B/P (MAP) Pulse Ox O2 Delivery O2 Flow Rate FiO2 09/12/18 02:15 84 24 132/58 (82) 95 Nasal Cannula 2.0 09/12/18 01:39 103.0 103.0 Lab Values Laboratory Tests Test 09/12/18 01:50 White Blood Count 15.8 x10^3/uL (4.0-11.0) H Red Blood Count 4.05 x10^6/uL (4.30-5.70) L Hemoglobin 12.1 g/dL (13.0-17.5) L Hematocrit 38.1 % (39.0-53.0) L Mean Corpuscular Volume 94 fL (79-100) Mean Corpuscular Hemoglobin 30 pg (25-35) Mean Corpuscular Hemoglobin Concent 32 g/dL (31-37) Red Cell Distribution Width 15.8 % (11.5-14.5) H Platelet Count 305 x10^3/uL (140-400) Neutrophils (%) (Auto) 90 % (31-73) H Lymphocytes (%) (Auto) 6 % (24-48) L Monocytes (%) (Auto) 4 % (0-9) Eosinophils (%) (Auto) 0 % (0-3) Basophils (%) (Auto) 1 % (0-3) Neutrophils # (Auto) 14.2 x10^3uL (1.8-7.7) H Lymphocytes # (Auto) 1.0 x10^3/uL (1.0-4.8) Monocytes # (Auto) 0.6 x10^3/uL (0.0-1.1) Eosinophils # (Auto) 0.0 x10^3/uL (0.0-0.7) Basophils # (Auto) 0.1 x10^3/uL (0.0-0.2) Segmented Neutrophils % 88 % (35-66) H Band Neutrophils % 4 % (0-9) Lymphocytes % 5 % (24-48) L Monocytes % 2 % (0-10) Metamyelocytes % 1 % (0-0) H Platelet Estimate Adequate (ADEQUATE) Giant Platelets Occ Prothrombin Time 21.2 SEC (11.7-14.0) H Prothrombin Time INR 1.9 (0.8-1.1) H PTT 38 SEC (24-38) Sodium Level 140 mmol/L (136-145) Potassium Level 3.4 mmol/L (3.5-5.1) L Chloride Level 105 mmol/L (98-107) Carbon Dioxide Level 23 mmol/L (21-32) Anion Gap 12 (6-14) Blood Urea Nitrogen 22 mg/dL (8-26) Creatinine 1.1 mg/dL (0.7-1.3) Estimated GFR (Cockcroft-Gault) 76.8 BUN/Creatinine Ratio 20 (6-20) Glucose Level 182 mg/dL (70-99) H Lactic Acid Level 1.9 mmol/L (0.4-2.0) Calcium Level 9.1 mg/dL (8.5-10.1) Magnesium Level 1.6 mg/dL (1.8-2.4) L Total Bilirubin 1.3 mg/dL (0.2-1.0) H Direct Bilirubin 0.5 mg/dL (0.0-0.2) H Aspartate Amino Transferase (AST) 23 U/L (15-37) Alanine Aminotransferase (ALT) 14 U/L (16-63) L Alkaline Phosphatase 81 U/L (46-116) Troponin I Quantitative 0.040 ng/mL (0.000-0.055) BW-[id number]-[id number]-Type Natriuretic Peptide 3767 pg/mL (0-449) H Total Protein 6.4 g/dL (6.4-8.2) Albumin 2.8 g/dL (3.4-5.0) L Albumin/Globulin Ratio 0.8 (1.0-1.7) L Laboratory Tests 09/12/18 01:50 Laboratory Tests 09/12/18 01:50 EKG EKG [] Radiology/Procedures Radiology/Procedures [Chest x-ray: Left lower lobe infiltrate as interpreted by me] Course & Med Decision Making Course & Med Decision Making Pertinent Labs and Imaging studies reviewed. (See chart for details) [ED course: Evaluation reveals an ill 87-year-old male. He had 103 temperature on arrival here he was given antipyretics with some resolution of his fever and when his fever did go down his mentation cleared. He was given 30/kg of IV fluids and given the fact that he was recently hospitalized I treated him his healthcare acquired pneumonia. Personally, I thought that the changes in his left lung base looked more like an acute infiltrate rather than scarring or edema. Patient will be admitted to the hospitalist service.] CRITICAL CARE: Time spent was 35 minutes. This includes medical management, evaluation, reevaluation, discussion with consultants and family. Critical Care does NOT include time spent on separately billed procedures. Dragon Disclaimer Dragon Disclaimer This electronic medical record was generated, in whole or in part, using a voice recognition dictation system. Departure Departure Impression: Primary Impression: Pneumonia Additional Impression: Sepsis Disposition: 09 ADMITTED INPATIENT Admitting Physician: HIMS Condition: GUARDED Referrals: DAVID CHAPIN MD (PCP) Problem Qualifiers Primary Impression: Pneumonia Pneumonia type: due to unspecified organism Laterality: left Lung location: lower lobe of lung Qualified Codes: J18.1 - Lobar pneumonia, unspecified organism Additional Impression: Sepsis Sepsis type: sepsis due to unspecified organism Qualified Codes: A41.9 - Sepsis, unspecified organism [address] DO Sep 12, 2018 02:47
[2018-09-12 02:52] LABS: CALCIUM 9.1 mg/dL (8.5-10.1); CREATININE 1.1 mg/dL (0.7-1.3); GFR 76.8; POTASSIUM 3.4 mmol/L (3.5-5.1)
[2018-09-12] MEDS ORDERED: ONDANSETRON PF 4 MG/2 ML VIAL. IV PRN (03:00)
[2018-09-12 03:06] LABS: ALBUMIN 2.8 g/dL (3.4-5.0); ALBUMIN/GLOBULIN RATIO 0.8 (1.0-1.7); DIRECT BILIRUBIN 0.5 mg/dL (0.0-0.2); TOTAL BILIRUBIN 1.3 mg/dL (0.2-1.0); TOTAL PROTEIN 6.4 g/dL (6.4-8.2)
[2018-09-12] MEDS: IV NORMAL SALINE 1000ML BAG 1,000 ML IV SCH ×2 (03:11→04:06)
[2018-09-12] MEDS ORDERED: VANCOMYCIN 2 GM in IV NORMAL SALINE 500ML BAG 500 ML IV ONE (03:30)
[2018-09-12] MEDS ORDERED: HYDROcodone/APAP 5/325MG 1 TAB TABLET PO PRN (04:30)
[2018-09-12 04:51] LABS: % BANDS 4 % (0-9); % LYMPHS 5 % (24-48); % METAS 1 % (0-0); % MONOS 2 % (0-10); % SEGS 88 % (35-66); PLT ESTIMATE ADEQUATE (ADEQUATE)
[2018-09-12] MEDS: HYDROcodone/APAP 5/325MG 1 TAB TABLET PO PRN (04:54)
--- NOTE | 2018-09-12 05:25 | NUR ---
Pharmacy Vancomycin Dosing Note S:Consulted to monitor and dose vancomycin started 09/12/18. O:MAMTA MACIAS is a 87 year old M with Sepsis Pneumonia . Height: 6 feet, 0 inches Weight: 88.378051 kg [place] Body Weight: 77.60 Adjusted Body Weight: 81.96 Dosing Weight: Actual Other Antibiotics: LABS: Last BUN: 22 Last Creatinine: 1.1 Creatinine Clearance: 56 mL/min Last WBC: 15.8 Last Procalcitonin: Tmax (past 24 hours): Microbiology: I/O: Drug Levels: Last level: on at Last dose given 09/12/18 at 0500 Vancomycin Dosing: Loading Dose: 2000 mg x1 Dosing Weight: Actual Target Trough: 15-20 A: Based on: WT AND CRCL P: 1. Begin Vancomycin 1250 mg IV q18h 2. Follow up Trough level on 09/13/18 at 1630 3. Pharmacy will continue to monitor, follow and adjust therapy as needed. RAUL FERNANDEZ RPH, 09/12/18 0525 Signed: 09/12/18 at 0526 by RAUL FERNANDEZ RPH PHA
--- NOTE | 2018-09-12 07:18 | EKG ---
[facility] [address] [place] [address] Test Date: 2018-09-12 Test Time: 02:48:51 Pat Name: MAMTA MACIAS Department: Room: Gender: M Communications Associate: : 1930 Requested By: [address] Order Number: [id number] Reading MD: Measurements Intervals [place] Rate: 85 P: [place]: QRS: -53 QRSD: 106 T: -69 QT: 324 QTc: 390 Interpretive Statements ATRIAL FIBRILLATION ABNORMAL LEFT AXIS DEVIATION LOW LIMB LEAD VOLTAGE LEFT ANTERIOR FASCICULAR BLOCK LVH WITH REPOLARIZATION ABNORMALITY ABNORMAL ECG No previous ECG available for comparison
[2018-09-12] MEDS: IPRATRPIUM/ALBUTEROL 0.5/2.5MG 3 ML NEBU. NEB SCH ×4 (07:45→20:51)
--- NOTE | 2018-09-12 08:18 | RAD ---
EXAM: CHEST 1 VIEW. HISTORY: Fever. COMPARISON: 11/09/2017. FINDINGS: A frontal view of the chest is obtained. A left-sided pacemaker has its leads in the right atrium and right ventricle. Left basilar opacity appears mostly chronic and likely reflects scarring. Blunting of the left costophrenic angle is likely secondary to scarring rather than a small pleural effusion. Right infrahilar opacity may represent mild pulmonary edema or mild infiltrate. There is no pneumothorax or clear pleural effusion. The heart is mildly enlarged. There are atherosclerotic calcifications of the aorta. IMPRESSION: 1. Correlate clinically to differentiate mild pulmonary edema from mild basilar infiltrates or interstitial lung disease. 2. Mild cardiomegaly. Electronically signed by: Ronda Klein MD (09/12/2018 8:15 AM) [facility]
[2018-09-12] MEDS: LACTOBACILLUS RHAMNOSUS GG 1 CAPSULE. PO SCH ×2 (08:22→21:00)
--- NOTE | 2018-09-12 11:00 | NUR ---
Patient's lungs appeared clear upon 0800 assessment. Respiratory visited, mentioned how he appeared. Upon auscultation bilateral coarse breath sounds with expiratory, and lower lobes bilaterally inspiratory and expiratory coarse.
--- NOTE | 2018-09-12 12:19 | PDOC2 ---
BART PAZ [employer] SUPERINTENDENT 09/12/18 1219: CARDIAC CONSULT DATE OF CONSULT Date of Consult DATE: 09/12/18 TIME: 12:02 REASON FOR CONSULT Reason for Consult: CHF REFERRING PHYSICIAN Referring Physician: Dr. Rucker SOURCE Source: Chart review, Patient HISTORY OF PRESENT ILLNESS HISTORY OF PRESENT ILLNESS This is a 87 yo male who presented secondary to cough, tremors, and shortness of breath. and family was concerned so they made him come to the ED for further evaluation and treatment. Patient denies any chest pain, palpitations, dizziness, diaphoresis, or nausea/vomiting. LE's have more more edematous over the last couple of days. Cough seems to be worse with eating. Was previous on diuretic therapy but reports PCP discontinued this about 2 weeks ago. Is unsure as to why. PAST MEDICAL HISTORY Past Medical History Cardiovascular: AFIB (permanent), CAD (occluded LAD with retrograde filling via collaterals), CHF (diastolic), HTN, Hyperlipidemia Pulmonary: COPD, Other (USAMA ) CENTRAL NERVOUS SYSTEM: Other (none) GI: No pertinent hx Heme/Onc: No pertinent hx Hepatobiliary: No pertinent hx Psych: No pertinent hx Musculoskeletal: Osteoarthritis Rheumatologic: No pertinent hx Infectious disease: No pertinent hx ENT: No pertinent hx Renal/: No pertinent hx Endocrine: Diabetes PAST SURGICAL HISTORY Past Surgical History Pacemaker ([employer]), Cholecystectomy, Other (vein stripping; gen change - 2015) FAMILY HISTORY Family History: Heart Disease SOCIAL HISTORY Social History Smoke: No ALCOHOL: none Drugs: None CURRENT MEDICATIONS CURRENT MEDICATIONS Current Medications Medications (Trade) Dose Ordered Sig/Rakesh Route PRN Reason Start Time Stop Time Status Last Admin Dose Admin Piperacillin Sod/ Tazobactam Sod 4.5 gm/Sodium Chloride 100 ml @ 200 mls/hr 1X ONCE IV 09/12/18 02:30 09/12/18 02:59 DC 09/12/18 03:03 Vancomycin HCl (Vanco Per Pharmacy) 1 each PRN DAILY PRN MC SEE COMMENTS 09/12/18 02:15 09/12/18 05:25 Sodium Chloride 1,000 ml @ 1,000 mls/hr 1X ONCE IV 09/12/18 02:30 09/12/18 03:29 DC 09/12/18 03:02 Acetaminophen (Tylenol) 1,000 mg 1X ONCE PO 09/12/18 02:30 09/12/18 02:31 DC 09/12/18 03:11 Vancomycin HCl 2 gm/Sodium Chloride 500 ml @ 250 mls/hr 1X ONCE IV 09/12/18 03:30 09/12/18 05:29 DC 09/12/18 04:59 Sodium Chloride 2,340 ml @ 2,340 mls/hr Q1H IV 09/12/18 02:47 09/12/18 03:06 DC 09/12/18 03:02 Albuterol/ Ipratropium (Duoneb) 3 ml RTQID NEB 09/12/18 08:00 09/13/18 07:59 09/12/18 11:13 Sodium Chloride 1,000 ml @ 1,000 mls/hr Q1H IV 09/12/18 03:06 09/12/18 04:40 DC 09/12/18 04:06 Lactobacillus Rhamnosus (Culturelle) 1 cap BID PO 09/12/18 09:00 09/12/18 08:22 Acetaminophen/ Hydrocodone Bitart (Lortab 5/325) 1 tab PRN Q6HRS PRN PO MODERATE PAIN 09/12/18 04:46 09/12/18 04:54 ALLERGIES ALLERGIES: Coded Allergies: No Known Drug Allergies (Unverified , 09/09/18) Self-report by patient PHYSICAL EXAM PHYSICAL EXAM General: Alert HEENT: Atraumatic Lungs: Clear to auscultation Heart: Other (IRRR; tele: atrial fibrillation ) Abdomen: Soft Extremities: Other (+ edema) Skin: No rashes Neuro: Normal speech Psych/Mental Status: Mood NL MUSCULOSKELETAL: Osteoarthritic changes both hands VITALS VITALS Vital Signs Date Time Temp Pulse Resp B/P (MAP) Pulse Ox O2 Delivery O2 Flow Rate FiO2 09/12/18 11:15 Nasal Cannula 2.0 09/12/18 11:04 98.3 64 20 104/54 (19) 93 98.3 LABS Lab: Laboratory Tests Test 09/12/18 01:50 09/12/18 07:36 White Blood Count 15.8 x10^3/uL (4.0-11.0) Red Blood Count 4.05 x10^6/uL (4.30-5.70) Hemoglobin 12.1 g/dL (13.0-17.5) Hematocrit 38.1 % (39.0-53.0) Mean Corpuscular Volume 94 fL (79-100) Mean Corpuscular Hemoglobin 30 pg (25-35) Mean Corpuscular Hemoglobin Concent 32 g/dL (31-37) Red Cell Distribution Width 15.8 % (11.5-14.5) Platelet Count 305 x10^3/uL (140-400) Neutrophils (%) (Auto) 90 % (31-73) Lymphocytes (%) (Auto) 6 % (24-48) Monocytes (%) (Auto) 4 % (0-9) Eosinophils (%) (Auto) 0 % (0-3) Basophils (%) (Auto) 1 % (0-3) Neutrophils # (Auto) 14.2 x10^3uL (1.8-7.7) Lymphocytes # (Auto) 1.0 x10^3/uL (1.0-4.8) Monocytes # (Auto) 0.6 x10^3/uL (0.0-1.1) Eosinophils # (Auto) 0.0 x10^3/uL (0.0-0.7) Basophils # (Auto) 0.1 x10^3/uL (0.0-0.2) Segmented Neutrophils % 88 % (35-66) Band Neutrophils % 4 % (0-9) Lymphocytes % 5 % (24-48) Monocytes % 2 % (0-10) Metamyelocytes % 1 % (0-0) Platelet Estimate Adequate (ADEQUATE) Giant Platelets Occ Prothrombin Time 21.2 SEC (11.7-14.0) Prothromb Time International Ratio 1.9 (0.8-1.1) Activated Partial Thromboplast Time 38 SEC (24-38) Sodium Level 140 mmol/L (136-145) Potassium Level 3.4 mmol/L (3.5-5.1) Chloride Level 105 mmol/L (98-107) Carbon Dioxide Level 23 mmol/L (21-32) Anion Gap 12 (6-14) Blood Urea Nitrogen 22 mg/dL (8-26) Creatinine 1.1 mg/dL (0.7-1.3) Estimated GFR (Cockcroft-Gault) 76.8 BUN/Creatinine Ratio 20 (6-20) Glucose Level 182 mg/dL (70-99) Lactic Acid Level 1.9 mmol/L (0.4-2.0) Calcium Level 9.1 mg/dL (8.5-10.1) Total Bilirubin 1.3 mg/dL (0.2-1.0) Direct Bilirubin 0.5 mg/dL (0.0-0.2) Aspartate Amino Transf (AST/SGOT) 23 U/L (15-37) Alanine Aminotransferase (ALT/SGPT) 14 U/L (16-63) Alkaline Phosphatase 81 U/L (46-116) Troponin I Quantitative 0.040 ng/mL (0.000-0.055) Total Protein 6.4 g/dL (6.4-8.2) Albumin 2.8 g/dL (3.4-5.0) Albumin/Globulin Ratio 0.8 (1.0-1.7) Glucose (Fingerstick) 123 mg/dL (70-99) ECHOCARDIOGRAM ECHOCARDIOGRAM 11/2016: TTE: The left ventricle is normal size. Left ventricle systolic function is low normal. The Ejection Fraction is 50-55%. There is mild concentric left ventricular hypertrophy. The right atrium is moderately to moderately severely dilated. A pacemaker is seen in the right atrium consistent with history. There is no significant aortic valvular stenosis. Doppler and Color Flow revealed trace aortic regurgitation. Doppler and Color-flow revealed moderate mitral regurgitation. Doppler and Color Flow revealed moderate tricuspid regurgitation. The PA pressure was estimated at 60 mmHg. The aortic root is enlarged at 4.2 cm. The ascending aorta is mildly dilated at 4.0 cm. DATE: 11/08/171708 <Conclusion> The left ventricular systolic function is normal and the ejection fraction is within normal range. The Ejection Fraction is 50-55%. Septal motion suggestive of conduction defect. There are multiple pacemaker lead in the right ventricle. Cannot rule out small PFO on color doppler imaging. Agitated saline study not performed on this imaging study. Doppler and Color Flow revealed moderate tricuspid regurgitation. There is severe pulmonary hypertension. PASP is 85 mmHg. The IVC is dilated and collapses <50% with inspiration. The aortic root is moderately enlarged (4.5 cm). 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 Non-diagnostic EKG due to pacing artifact 2. Small to moderate sized, mostly reversible apical perfusion defect suggestive of mild ischemia and prior infarct. (Due to subdiaphragmatic activity, artifact cannot be ruled out) 3. Normal EF at > 65% 4. Moderate risk study DATE: 06/11/18 1232 HEART CATH HEART CATH 08/2013: Normal left main coronary artery. Single vessel obstructive coronary artery disease encompassing a totally occluded distal left anterior descending coronary artery at its origin. The vessel fills faintly retrograde by intercoronary collaterals from the left circumflex coronary artery system. Left ventricular angiogram was not performed. FINDINGS 1. Hemodynamics: Left ventricular end-diastolic pressure of 13 mmHg. No pullback gradient across the aortic valve. 2. Left ventriculography: Normal left ventricle systolic function with ejection fraction estimated at 60%. No significant mitral regurgitation seen. 3. Coronary angiography: a. The left main coronary artery arose from the left sinus of Valsalva, gave rise to the left anterior descending and left circumflex arteries and did not show any significant stenosis. b. The left anterior descending artery showed 100% chronic total occlusion in the midsegment with faint distal reconstitution from left to left collaterals, described in prior cardiac catheterization. c. The left circumflex artery did not show any significant stenosis. d. The right coronary artery was a large and dominant vessel arising from the right sinus of Valsalva that did not show any significant stenosis. Conclusion 1. 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 No other stenoses were noted. 2. Normal left ventricle systolic function with ejection fraction estimated at 60%. Recommendations Medical Therapy DATE: 08/12/18 1021 ASSESSMENT/PLAN ASSESSMENT/PLAN 1. Leukocytosis, ? PNA 2. Acute on chronic diastolic HF; recent echo with preserved LV systolic function as noted above. 3. CAD; catheterization 08/2018 with NETWORK ASSOCIATE of LAD, which is unchanged from previous cath in 2013. Stable CP free. 4. Permanent AFIB; rate controlled. on warfarin for stroke prevention. INR 1.9 5. 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 Trace) 6. Hypertension; controlled 7. Hyperlipidemia; statin 8. Diabetes, II 9. Hypokalemia 10. ? aspiration; coughing with liquids/eating Recommendations Diuresis Replace K, check Mg and replace as warranted ST evaluation Resume secondary preventions measures BB for rate control Warfarin for stroke prevention Antibiotics as per PCP SHAWN PARKER MD 09/12/18 3742: CARDIAC CONSULT ASSESSMENT/PLAN ASSESSMENT/PLAN Patient seen and examined. Agree with [employer] LAYER's assessment and plan. Acute on chronic diastolic heart failure better compensated with diuresis. Recent 2-D echo showed normal LV systolic function. CAD status clinically stable. Permanent atrial fibrillation rate controlled. Continue warfarin for stroke prophylaxis. Continue treatment for possible aspiration pneumonia per pulmonary team. Thank you for your consultation. BART PAZ APRN Sep 12, 2018 12:19 SHAWN PARKER MD Sep 12, 2018 16:25
--- NOTE | 2018-09-12 12:27 | HP ---
ADMIT DATE: 09/12/2018 CHIEF COMPLAINT: Fever. HISTORY OF PRESENT ILLNESS: The patient is a pleasant 87-year-old male who presented to the ER with a fever. He had some mental status change and slurred speech that came on within the past 12 hours. He had a recent hernia repair. Family stated he had been coughing and having some complaints of shortness of breath. The was concerned he could have had a stroke. While in the ER, we did some chest x-rays and labs as showing that he has pneumonia and sepsis. The patient has now been admitted. PAST MEDICAL HISTORY: Atrial fibrillation, CAD, CHF, diabetes, hyperlipidemia, hypertension, he wears CPAP at night, cholecystectomy, pacemaker, leg vein surgery, hernia repair. ALLERGIES: None. FAMILY HISTORY: Coronary artery disease. SOCIAL HISTORY: He does not drink, smoke or take drugs. MEDICATIONS: Reviewed, please refer to the MRAD. He is on 11 home meds including Flomax, Coumadin, digoxin, atorvastatin, metoprolol, aspirin, [place], Colace, psyllium and vitamins. REVIEW OF SYSTEMS: GENERAL: He complains of intermittent fevers. SKIN: No bruising, hair changes or rashes. EYES: No blurred, double or loss of vision. NOSE AND THROAT: No history of nosebleeds, hoarseness or sore throat. HEART: No history of palpitations, chest pain or shortness of breath on exertion. LUNGS: He complains of a cough. GASTROINTESTINAL: Denies changes in appetite, nausea, vomiting, diarrhea or constipation. GENITOURINARY: No history of frequency, urgency, hesitancy or nocturia. NEUROLOGIC: Denies history of numbness, tingling, tremor or weakness. PSYCHIATRIC: No history of panic, anxiety or depression. ENDOCRINE: No history of heat or cold intolerance, polyuria or polydipsia. EXTREMITIES: Denies muscle weakness, joint pain, pain on walking or stiffness. PHYSICAL EXAMINATION: VITAL SIGNS: Temperature, it should be noted that he had a temperature last night of 103, but now is normal, pulse 92, respirations 18, blood pressure is normal today at 104/54. HEART: Distant S1, S2. LUNGS: Mostly clear with slight crackles on the left. ABDOMEN: Soft. EXTREMITIES: No edema. SKIN: No rash. ENDOCRINE: No thyromegaly. LYMPHATICS: No cervical nodes. HEMATOPOIETIC: No bruising. PSYCHIATRIC: He is stable. LABORATORY DATA: White count 16, hemoglobin 12. Potassium is low at 3.4. Chest x-ray shows mild edema and infiltrates and cardiomegaly. ASSESSMENT AND PLAN: Pneumonia, sepsis and heart failure. The patient has been admitted. We will consult Cardiology, Pulmonary and give him IV antibiotics, breathing treatments, oxygen. We will consider IV Lasix. Home meds, DVT prophylaxis. Full code. Frequent labs. CARSON LEE DO DR: [place]/lorraine JOB#: [id number] / [id number]
[2018-09-12] MEDS ORDERED: FUROSEMIDE 40 MG/4 ML VIAL. IVP ONE (12:45)
[2018-09-12] MEDS ORDERED: POTASSIUM CHLORIDE 20 MEQ TABLET.ER. PO ONE (12:45)
--- NOTE | 2018-09-12 12:45 | PDOC ---
PULMONARY PROGRESS NOTES Vitals Vital Signs Date Time Temp Pulse Resp B/P (MAP) Pulse Ox O2 Delivery O2 Flow Rate FiO2 09/12/18 11:15 Nasal Cannula 2.0 09/12/18 11:04 98.3 64 20 104/54 (71) 93 98.3 General: Alert Lungs: Wheezing, Crackles Cardiovascular: S1 Abdomen: Soft, Non-tender Extremities: No Edema Labs Laboratory Tests Test 09/12/18 01:50 09/12/18 07:36 White Blood Count 15.8 x10^3/uL (4.0-11.0) Red Blood Count 4.05 x10^6/uL (4.30-5.70) Hemoglobin 12.1 g/dL (13.0-17.5) Hematocrit 38.1 % (39.0-53.0) Mean Corpuscular Volume 94 fL (79-100) Mean Corpuscular Hemoglobin 30 pg (25-35) Mean Corpuscular Hemoglobin Concent 32 g/dL (31-37) Red Cell Distribution Width 15.8 % (11.5-14.5) Platelet Count 305 x10^3/uL (140-400) Neutrophils (%) (Auto) 90 % (31-73) Lymphocytes (%) (Auto) 6 % (24-48) Monocytes (%) (Auto) 4 % (0-9) Eosinophils (%) (Auto) 0 % (0-3) Basophils (%) (Auto) 1 % (0-3) Neutrophils # (Auto) 14.2 x10^3uL (1.8-7.7) Lymphocytes # (Auto) 1.0 x10^3/uL (1.0-4.8) Monocytes # (Auto) 0.6 x10^3/uL (0.0-1.1) Eosinophils # (Auto) 0.0 x10^3/uL (0.0-0.7) Basophils # (Auto) 0.1 x10^3/uL (0.0-0.2) Segmented Neutrophils % 88 % (35-66) Band Neutrophils % 4 % (0-9) Lymphocytes % 5 % (24-48) Monocytes % 2 % (0-10) Metamyelocytes % 1 % (0-0) Platelet Estimate Adequate (ADEQUATE) Giant Platelets Occ Prothrombin Time 21.2 SEC (11.7-14.0) Prothromb Time International Ratio 1.9 (0.8-1.1) Activated Partial Thromboplast Time 38 SEC (24-38) Sodium Level 140 mmol/L (136-145) Potassium Level 3.4 mmol/L (3.5-5.1) Chloride Level 105 mmol/L (98-107) Carbon Dioxide Level 23 mmol/L (21-32) Anion Gap 12 (6-14) Blood Urea Nitrogen 22 mg/dL (8-26) Creatinine 1.1 mg/dL (0.7-1.3) Estimated GFR (Cockcroft-Gault) 76.8 BUN/Creatinine Ratio 20 (6-20) Glucose Level 182 mg/dL (70-99) Lactic Acid Level 1.9 mmol/L (0.4-2.0) Calcium Level 9.1 mg/dL (8.5-10.1) Magnesium Level 1.6 mg/dL (1.8-2.4) Total Bilirubin 1.3 mg/dL (0.2-1.0) Direct Bilirubin 0.5 mg/dL (0.0-0.2) Aspartate Amino Transf (AST/SGOT) 23 U/L (15-37) Alanine Aminotransferase (ALT/SGPT) 14 U/L (16-63) Alkaline Phosphatase 81 U/L (46-116) Troponin I Quantitative 0.040 ng/mL (0.000-0.055) Total Protein 6.4 g/dL (6.4-8.2) Albumin 2.8 g/dL (3.4-5.0) Albumin/Globulin Ratio 0.8 (1.0-1.7) Glucose (Fingerstick) 123 mg/dL (70-99) Laboratory Tests Test 09/12/18 01:50 09/12/18 07:36 White Blood Count 15.8 x10^3/uL (4.0-11.0) Red Blood Count 4.05 x10^6/uL (4.30-5.70) Hemoglobin 12.1 g/dL (13.0-17.5) Hematocrit 38.1 % (39.0-53.0) Mean Corpuscular Volume 94 fL (79-100) Mean Corpuscular Hemoglobin 30 pg (25-35) Mean Corpuscular Hemoglobin Concent 32 g/dL (31-37) Red Cell Distribution Width 15.8 % (11.5-14.5) Platelet Count 305 x10^3/uL (140-400) Neutrophils (%) (Auto) 90 % (31-73) Lymphocytes (%) (Auto) 6 % (24-48) Monocytes (%) (Auto) 4 % (0-9) Eosinophils (%) (Auto) 0 % (0-3) Basophils (%) (Auto) 1 % (0-3) Neutrophils # (Auto) 14.2 x10^3uL (1.8-7.7) Lymphocytes # (Auto) 1.0 x10^3/uL (1.0-4.8) Monocytes # (Auto) 0.6 x10^3/uL (0.0-1.1) Eosinophils # (Auto) 0.0 x10^3/uL (0.0-0.7) Basophils # (Auto) 0.1 x10^3/uL (0.0-0.2) Segmented Neutrophils % 88 % (35-66) Band Neutrophils % 4 % (0-9) Lymphocytes % 5 % (24-48) Monocytes % 2 % (0-10) Metamyelocytes % 1 % (0-0) Platelet Estimate Adequate (ADEQUATE) Giant Platelets Occ Prothrombin Time 21.2 SEC (11.7-14.0) Prothromb Time International Ratio 1.9 (0.8-1.1) Activated Partial Thromboplast Time 38 SEC (24-38) Sodium Level 140 mmol/L (136-145) Potassium Level 3.4 mmol/L (3.5-5.1) Chloride Level 105 mmol/L (98-107) Carbon Dioxide Level 23 mmol/L (21-32) Anion Gap 12 (6-14) Blood Urea Nitrogen 22 mg/dL (8-26) Creatinine 1.1 mg/dL (0.7-1.3) Estimated GFR (Cockcroft-Gault) 76.8 BUN/Creatinine Ratio 20 (6-20) Glucose Level 182 mg/dL (70-99) Lactic Acid Level 1.9 mmol/L (0.4-2.0) Calcium Level 9.1 mg/dL (8.5-10.1) Magnesium Level 1.6 mg/dL (1.8-2.4) Total Bilirubin 1.3 mg/dL (0.2-1.0) Direct Bilirubin 0.5 mg/dL (0.0-0.2) Aspartate Amino Transf (AST/SGOT) 23 U/L (15-37) Alanine Aminotransferase (ALT/SGPT) 14 U/L (16-63) Alkaline Phosphatase 81 U/L (46-116) Troponin I Quantitative 0.040 ng/mL (0.000-0.055) Total Protein 6.4 g/dL (6.4-8.2) Albumin 2.8 g/dL (3.4-5.0) Albumin/Globulin Ratio 0.8 (1.0-1.7) Glucose (Fingerstick) 123 mg/dL (70-99) Medications Active Scripts Medications Dose Route/Sig Max Daily Dose Days Date Category Dose Instructions Colace (Docusate Sodium) 100 Mg Capsule 1 Cap PO TID 09/09/18 Reported Metamucil Powder (Psyllium Seed (with Sugar)) 575 Gm Powder 575 Gm PO DAILY 09/09/18 Reported [place] 5-325 Tablet (Acetaminophen/Hydrocodone Bitart) 1 Each Tablet 7.5 Mg PO PRN Q6HRS PRN 09/09/18 Reported LAST DOSE GIVEN: Atorvastatin Calcium 40 Mg Tablet 1 Tab PO DAILY 08/12/18 Reported Metoprolol Tartrate 100 Mg Tablet 100 Mg PO DAILY 11/08/17 Reported Tamsulosin Hcl 0.4 Mg Cap.er.24h 0.4 Mg PO HS DAILY 11/08/17 Reported Vitamin C (Ascorbic Acid) 500 Mg Tablet 250 Mg PO DAILY 05/08/14 Reported Warfarin Sodium 5 Mg Tablet 1.5 Tab PO QWE 04/18/14 Reported Warfarin Sodium 5 Mg Tablet 1 Tab PO DAILY EXCEPT WED. 04/18/14 Reported Aspirin 81 Mg Tab.chew 81 Mg PO BID 08/22/13 Reported Lanoxin (Digoxin) 125 Mcg Tablet 125 Mcg PO DAILY 08/22/13 Reported Impression . possible sepsis aspiration pneumonia ILD Ct chest agree with current Rx BREN CARDOZO MD Sep 12, 2018 12:45
[2018-09-12] MEDS: PIPERACILLIN/TAZOBACTAM 3.375 GM in IV NORMAL SALINE 50ML 50 ML IV SCH ×2 (14:00→19:33)
[2018-09-12] MEDS ORDERED: MAGNESIUM SULFATE 2GM 50 ML IV ONE (15:00)
--- NOTE | 2018-09-12 15:19 | NUR ---
Pt transported by [facility] to [facility], Gave report to Geovany at [facility]. Vitals taken prior to discharge Addendum: 09/12/18 at 1553 by HO YODER RN RN Charted on wrong pt. Please disregard. Thank you.
[2018-09-12] MEDS: METOPROLOL TART IMMED RELEASE 50 MG TABLET. PO SCH (15:28)
[2018-09-12] MEDS: WARFARIN 5 MG TABLET. PO SCH (15:28)
[2018-09-12] MEDS: DIGOXIN 125 MCG TABLET. PO SCH (15:29)
[2018-09-12 18:23] LABS: BASO # 0.1 x10^3/uL (0.0-0.2); BASO % 1 % (0-3); EOS % 0 % (0-3); HEMATOCRIT 40.8 % (39.0-53.0); HEMOGLOBIN 12.9 g/dL (13.0-17.5); LYMPH # 0.7 x10^3/uL (1.0-4.8); LYMPH % 3 % (24-48); MEAN CORPUSCULAR HEMOGLOBIN 30 pg (25-35); MEAN CORPUSCULAR HGB CONC 32 g/dL (31-37); MEAN CORPUSCULAR VOLUME 95 fL (79-100); MONO # 0.4 x10^3/uL (0.0-1.1); MONO % 2 % (0-9); NEUT # 20.6 x10^3uL (1.8-7.7); NEUT % 94 % (31-73); PLATELET COUNT 378 x10^3/uL (140-400); RED BLOOD COUNT 4.32 x10^6/uL (4.30-5.70); WHITE BLOOD COUNT 21.8 x10^3/uL (4.0-11.0)
[2018-09-12 18:51] LABS: % BANDS 10 % (0-9); % LYMPHS 2 % (24-48); % MONOS 3 % (0-10); % SEGS 85 % (35-66); PLT ESTIMATE ADEQUATE (ADEQUATE)
--- NOTE | 2018-09-12 19:10 | NUR ---
Transfer report called to [facility] on . Pt transferred via bed at approx. 1830.
[2018-09-12] MEDS ORDERED: dilTIAZem INJ 125 MG in IV DEXTROSE 5% 100ML 100 ML IV PRN (19:15)
[2018-09-12] MEDS: ATORVASTATIN CALCIUM 40 MG TABLET. PO SCH (21:00)
[2018-09-12] MEDS: ASPIRIN CHEWABLE 81 MG TABLET. PO SCH (21:00)
--- NOTE | 2018-09-12 22:29 | NUR ---
Transfer of care: patient arrived to unit around 1845 accompanied by nurse. Vs taken- temp elevated. Assessment complete. O2 on 3L sat at 88, turned O2 up to 4L brought patient up to 93%. No complaints of pain or shortness of breath at this time. Cardizem drip ordered to keep HR below 110, not started at this time- patient HR is 85-105. Lactic Acid 3.[address] Woods, orders received. Bed in low, locked position, call light with in reach. Will continue to monitor.
[2018-09-12] MEDS ORDERED: VANCOMYCIN 1.25 GM in IV NORMAL SALINE 250ML 250 ML IV SCH (23:00)
[2018-09-13] MEDS: PIPERACILLIN/TAZOBACTAM 3.375 GM in IV NORMAL SALINE 50ML 50 ML IV SCH ×2 (00:07→05:37)
--- NOTE | 2018-09-13 01:34 | CONS ---
DATE OF CONSULTATION: 09/12/2018 ATTENDING PHYSICIAN: Dr. Cirilo Rucker. REASON FOR CONSULTATION: The patient is seen in pulmonary consultation at the request of Dr. Rucker for abnormal chest x-ray. HISTORY OF PRESENT ILLNESS: The patient is an 87-year-old that presented secondary to slurred speech, fever, increasing shortness of breath. He had a chest x-ray, which revealed some increasing lung markings. I was asked to see him in consultation. The patient normally does not wear oxygen at home. He is a lifetime nonsmoker. 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 He was last admitted to the hospital back in November 2017 with acute on chronic heart failure. He denies current productive cough, no hemoptysis. PAST MEDICAL HISTORY: 1. Obstructive sleep apnea, uses CPAP at home. He is not totally compliant. 2. Secondary pulmonary hypertension. 3. Previous echocardiogram revealed an ejection fraction of 55-60%. 4. Coronary artery disease. 5. Chronic atrial fibrillation. 6. Type 2 diabetes. 7. Hyperlipidemia. 8. Hypertension. PAST SURGICAL HISTORY: Status post cholecystectomy, pacemaker implantation. REVIEW OF SYSTEMS: CONSTITUTIONAL: Subjective fever. EYES: No change in visual acuity. HEENT: No nasal congestion or sore throat. PULMONARY: As indicated above. The patient also states that he was shaking. He has some possible chills. CARDIOVASCULAR: No chest pain or pressure. GASTROINTESTINAL: No nausea, vomiting or diarrhea. GENITOURINARY: No dysuria or frequency. MUSCULOSKELETAL: No localized muscle aches or joint pains. SKIN: No new skin rashes. ALLERGIES: No known drug allergies. SOCIAL HISTORY: He has never smoked. Worked in a [employer]. FAMILY HISTORY: No family history of any lung disorders. PHYSICAL EXAMINATION: GENERAL: The patient appeared to be older than stated age. He was requiring 2 liters of oxygen supplementation. HEENT: Eyes, the sclerae were nonicteric. NECK: Jugular venous distention was not elevated. No lymphadenopathy. CHEST: Full expansion. LUNGS: Crackles in the bases. No wheezes. CARDIOVASCULAR: Regular rate and rhythm with S1, S2, no S3. ABDOMEN: Soft, nontender, nondistended. EXTREMITIES: No clubbing, cyanosis or edema. NEUROLOGIC: The patient was awake, alert, following commands. A detailed neuro exam was not performed. LABORATORY DATA: White count was elevated. Hemoglobin and hematocrit were noted. Electrolytes were noted. BUN and creatinine were noted. INR was 1.9. IMPRESSION: 1. Abnormal x-ray. 2. Respiratory insufficiency. 3. Fever with shaking chills at home, possible sepsis. 4. Coronary artery disease. 5. Secondary pulmonary hypertension. 6. Obstructive sleep apnea. 7. Acute on chronic diastolic heart failure. 8. Permanent atrial fibrillation along with sick sinus syndrome, status post pacemaker implantation. 9. Possible aspiration. PLAN: 1. Continue current empiric antibiotics. 2. Obtain CT chest. 3. Follow clinical course and make further adjustments on antibiotics and medical regimen. 4. Lasix x 1. 5. Follow Cardiology input. 6. Case discussed with speech therapist who will evaluate for chronic aspiration. I do appreciate the privilege in sharing in the patient's care. BREN CARDOZO MD DR: CONTRERAS/lorraine JOB#: [id number] / [id number]
[2018-09-13 02:53] VITALS: BP 138/62
--- NOTE | 2018-09-13 03:10 | NUR ---
Skin assessment- patient has lower left abd dressing in place from 09/09 outpatient hernia repair. removed dressing, incision is clean, no drainage, no redness, swelling or signs of infection. cleaned incision with ChloraPrep, left open to air. Will continue to monitor patient.
[2018-09-13 04:01] LABS: BASO # 0.2 x10^3/uL (0.0-0.2); BASO % 1 % (0-3); EOS % 0 % (0-3); HEMOGLOBIN 11.7 g/dL (13.0-17.5); LYMPH # 1.1 x10^3/uL (1.0-4.8); LYMPH % 4 % (24-48); MEAN CORPUSCULAR HEMOGLOBIN 29 pg (25-35); MEAN CORPUSCULAR HGB CONC 31 g/dL (31-37); MEAN CORPUSCULAR VOLUME 95 fL (79-100); MONO # 1.2 x10^3/uL (0.0-1.1); MONO % 4 % (0-9); NEUT # 27.4 x10^3uL (1.8-7.7); NEUT % 92 % (31-73); PLATELET COUNT 306 x10^3/uL (140-400); RED BLOOD COUNT 3.99 x10^6/uL (4.30-5.70); RED CELL DISTRIBUTION WIDTH 16.1 % (11.5-14.5)
[2018-09-13 04:12] LABS: ALBUMIN 2.5 g/dL (3.4-5.0); ALBUMIN/GLOBULIN RATIO 0.7 (1.0-1.7); CALCIUM 8.9 mg/dL (8.5-10.1); CREATININE 1.3 mg/dL (0.7-1.3); GFR 63.3; POTASSIUM 3.5 mmol/L (3.5-5.1); TOTAL BILIRUBIN 2.6 mg/dL (0.2-1.0)
[2018-09-13 07:00] VITALS: BP 108/55
[2018-09-13] MEDS: METOPROLOL TART IMMED RELEASE 50 MG TABLET. PO SCH (09:00)
[2018-09-13] MEDS: LACTOBACILLUS RHAMNOSUS GG 1 CAPSULE. PO SCH ×2 (09:00→20:25)
[2018-09-13] MEDS: ASPIRIN CHEWABLE 81 MG TABLET. PO SCH ×2 (09:00→20:25)
[2018-09-13] MEDS: DIGOXIN 125 MCG TABLET. PO SCH (09:00)
[2018-09-13] MEDS ORDERED: LINEZOLID 600 MG TABLET PO SCH (10:15)
--- NOTE | 2018-09-13 10:27 | PDOC ---
Infectious Disease Note Vital Sign Vital Signs Vital Signs Date Time Temp Pulse Resp B/P (MAP) Pulse Ox O2 Delivery O2 Flow Rate FiO2 09/13/18 08:09 97 Nasal Cannula 4.0 09/13/18 07:00 98.4 73 18 108/55 (72) 98.4 Labs Lab Laboratory Tests Test 09/12/18 17:20 09/12/18 18:00 09/12/18 22:00 09/13/18 02:00 Glucose (Fingerstick) 122 mg/dL (70-99) White Blood Count 21.8 x10^3/uL (4.0-11.0) 30.0 x10^3/uL (4.0-11.0) Red Blood Count 4.32 x10^6/uL (4.30-5.70) 3.99 x10^6/uL (4.30-5.70) Hemoglobin 12.9 g/dL (13.0-17.5) 11.7 g/dL (13.0-17.5) Hematocrit 40.8 % (39.0-53.0) 38.0 % (39.0-53.0) Mean Corpuscular Volume 95 fL (79-100) 95 fL (79-100) Mean Corpuscular Hemoglobin 30 pg (25-35) 29 pg (25-35) Mean Corpuscular Hemoglobin Concent 32 g/dL (31-37) 31 g/dL (31-37) Red Cell Distribution Width 16.0 % (11.5-14.5) 16.1 % (11.5-14.5) Platelet Count 378 x10^3/uL (140-400) 306 x10^3/uL (140-400) Neutrophils (%) (Auto) 94 % (31-73) 92 % (31-73) Lymphocytes (%) (Auto) 3 % (24-48) 4 % (24-48) Monocytes (%) (Auto) 2 % (0-9) 4 % (0-9) Eosinophils (%) (Auto) 0 % (0-3) 0 % (0-3) Basophils (%) (Auto) 1 % (0-3) 1 % (0-3) Neutrophils # (Auto) 20.6 x10^3uL (1.8-7.7) 27.4 x10^3uL (1.8-7.7) Lymphocytes # (Auto) 0.7 x10^3/uL (1.0-4.8) 1.1 x10^3/uL (1.0-4.8) Monocytes # (Auto) 0.4 x10^3/uL (0.0-1.1) 1.2 x10^3/uL (0.0-1.1) Eosinophils # (Auto) 0.0 x10^3/uL (0.0-0.7) 0.0 x10^3/uL (0.0-0.7) Basophils # (Auto) 0.1 x10^3/uL (0.0-0.2) 0.2 x10^3/uL (0.0-0.2) Segmented Neutrophils % 85 % (35-66) Band Neutrophils % 10 % (0-9) Lymphocytes % 2 % (24-48) Monocytes % 3 % (0-10) Platelet Estimate Adequate (ADEQUATE) Large Platelets Mod Lactic Acid Level 3.5 mmol/L (0.4-2.0) 2.5 mmol/L (0.4-2.0) 2.0 mmol/L (0.4-2.0) Sodium Level 144 mmol/L (136-145) Potassium Level 3.5 mmol/L (3.5-5.1) Chloride Level 109 mmol/L (98-107) Carbon Dioxide Level 22 mmol/L (21-32) Anion Gap 13 (6-14) Blood Urea Nitrogen 22 mg/dL (8-26) Creatinine 1.3 mg/dL (0.7-1.3) Estimated GFR (Cockcroft-Gault) 63.3 BUN/Creatinine Ratio 17 (6-20) Glucose Level 128 mg/dL (70-99) Calcium Level 8.9 mg/dL (8.5-10.1) Total Bilirubin 2.6 mg/dL (0.2-1.0) Aspartate Amino Transf (AST/SGOT) 28 U/L (15-37) Alanine Aminotransferase (ALT/SGPT) 11 U/L (16-63) Alkaline Phosphatase 65 U/L (46-116) Total Protein 6.0 g/dL (6.4-8.2) Albumin 2.5 g/dL (3.4-5.0) Albumin/Globulin Ratio 0.7 (1.0-1.7) Micro Microbiology 09/12/18 Blood Culture - Preliminary, Resulted NO GROWTH AFTER 1 DAY Objective Assessment Fever Bandemia Leukocytosis, ? PNA / Aspiration - vomited here. ? UTI - abd is benign aside from some ? bladder distension. Possible UTI - c/o urinary complications prior to admit Sp Repair of incarcerated left inguinal hernia, had actually herniations on both sides of the cord structures at the internal inguinal ring 09/09- Wound looks very clean Acute on chronic diastolic HF; recent echo with preserved LV systolic function as noted above. CAD; catheterization 08/2018 with [employer] CL[employer] of [facility], which is unchanged from previous cath in 2013. Stable CP free. Permanent AFIB; rate controlled. on warfarin for stroke prevention. INR 1.9 PPM Diabetes, II Elevated TB - ? sec to Afib possible congestion Plan Plan of Care Straight Cath UA C and S Discont Zosyn with WBC increasing and begin Meropenem Dose Zyvox/Micafungin F/u labs and cults F/u speech eval D/w family D/w nursing and lab Thank you # [id number] NEERU FLORES MD Sep 13, 2018 10:27
[2018-09-13] MEDS: MICAFUNGIN 100 MG in IV DEXTROSE 5% 100ML 100 ML IV SCH (10:50)
--- NOTE | 2018-09-13 11:03 | PDOC ---
PULMONARY PROGRESS NOTES Subjective PT FEELS BETTER LESS SOA AND COUGH NOW NPO Vitals Vital Signs Date Time Temp Pulse Resp B/P (MAP) Pulse Ox O2 Delivery O2 Flow Rate FiO2 09/13/18 08:09 97 Nasal Cannula 4.0 09/13/18 07:00 98.4 73 18 108/55 (72) 98.4 ROS: No Nausea, No Chest Pain, No Abdominal Pain, No Increase Cough General: Alert Lungs: Crackles Cardiovascular: S1 Abdomen: Soft, Non-tender Neuro Exam: Alert Extremities: No Edema Skin: Warm Labs Laboratory Tests Test 09/12/18 01:50 09/12/18 07:36 09/12/18 17:20 09/12/18 18:00 White Blood Count 15.8 x10^3/uL (4.0-11.0) 21.8 x10^3/uL (4.0-11.0) Red Blood Count 4.05 x10^6/uL (4.30-5.70) 4.32 x10^6/uL (4.30-5.70) Hemoglobin 12.1 g/dL (13.0-17.5) 12.9 g/dL (13.0-17.5) Hematocrit 38.1 % (39.0-53.0) 40.8 % (39.0-53.0) Mean Corpuscular Volume 94 fL (79-100) 95 fL (79-100) Mean Corpuscular Hemoglobin 30 pg (25-35) 30 pg (25-35) Mean Corpuscular Hemoglobin Concent 32 g/dL (31-37) 32 g/dL (31-37) Red Cell Distribution Width 15.8 % (11.5-14.5) 16.0 % (11.5-14.5) Platelet Count 305 x10^3/uL (140-400) 378 x10^3/uL (140-400) Neutrophils (%) (Auto) 90 % (31-73) 94 % (31-73) Lymphocytes (%) (Auto) 6 % (24-48) 3 % (24-48) Monocytes (%) (Auto) 4 % (0-9) 2 % (0-9) Eosinophils (%) (Auto) 0 % (0-3) 0 % (0-3) Basophils (%) (Auto) 1 % (0-3) 1 % (0-3) Neutrophils # (Auto) 14.2 x10^3uL (1.8-7.7) 20.6 x10^3uL (1.8-7.7) Lymphocytes # (Auto) 1.0 x10^3/uL (1.0-4.8) 0.7 x10^3/uL (1.0-4.8) Monocytes # (Auto) 0.6 x10^3/uL (0.0-1.1) 0.4 x10^3/uL (0.0-1.1) Eosinophils # (Auto) 0.0 x10^3/uL (0.0-0.7) 0.0 x10^3/uL (0.0-0.7) Basophils # (Auto) 0.1 x10^3/uL (0.0-0.2) 0.1 x10^3/uL (0.0-0.2) Segmented Neutrophils % 88 % (35-66) 85 % (35-66) Band Neutrophils % 4 % (0-9) 10 % (0-9) Lymphocytes % 5 % (24-48) 2 % (24-48) Monocytes % 2 % (0-10) 3 % (0-10) Metamyelocytes % 1 % (0-0) Platelet Estimate Adequate (ADEQUATE) Adequate (ADEQUATE) Giant Platelets Occ Prothrombin Time 21.2 SEC (11.7-14.0) Prothromb Time International Ratio 1.9 (0.8-1.1) Activated Partial Thromboplast Time 38 SEC (24-38) Sodium Level 140 mmol/L (136-145) Potassium Level 3.4 mmol/L (3.5-5.1) Chloride Level 105 mmol/L (98-107) Carbon Dioxide Level 23 mmol/L (21-32) Anion Gap 12 (6-14) Blood Urea Nitrogen 22 mg/dL (8-26) Creatinine 1.1 mg/dL (0.7-1.3) Estimated GFR (Cockcroft-Gault) 76.8 BUN/Creatinine Ratio 20 (6-20) Glucose Level 182 mg/dL (70-99) Lactic Acid Level 1.9 mmol/L (0.4-2.0) 3.5 mmol/L (0.4-2.0) Calcium Level 9.1 mg/dL (8.5-10.1) Magnesium Level 1.6 mg/dL (1.8-2.4) Total Bilirubin 1.3 mg/dL (0.2-1.0) Direct Bilirubin 0.5 mg/dL (0.0-0.2) Aspartate Amino Transf (AST/SGOT) 23 U/L (15-37) Alanine Aminotransferase (ALT/SGPT) 14 U/L (16-63) Alkaline Phosphatase 81 U/L (46-116) Troponin I Quantitative 0.040 ng/mL (0.000-0.055) OD-Oxq-U-Type Natriuretic Peptide 3767 pg/mL (0-449) Total Protein 6.4 g/dL (6.4-8.2) Albumin 2.8 g/dL (3.4-5.0) Albumin/Globulin Ratio 0.8 (1.0-1.7) Glucose (Fingerstick) 123 mg/dL (70-99) 122 mg/dL (70-99) Large Platelets Mod Test 09/12/18 22:00 09/13/18 02:00 Lactic Acid Level 2.5 mmol/L (0.4-2.0) 2.0 mmol/L (0.4-2.0) White Blood Count 30.0 x10^3/uL (4.0-11.0) Red Blood Count 3.99 x10^6/uL (4.30-5.70) Hemoglobin 11.7 g/dL (13.0-17.5) Hematocrit 38.0 % (39.0-53.0) Mean Corpuscular Volume 95 fL (79-100) Mean Corpuscular Hemoglobin 29 pg (25-35) Mean Corpuscular Hemoglobin Concent 31 g/dL (31-37) Red Cell Distribution Width 16.1 % (11.5-14.5) Platelet Count 306 x10^3/uL (140-400) Neutrophils (%) (Auto) 92 % (31-73) Lymphocytes (%) (Auto) 4 % (24-48) Monocytes (%) (Auto) 4 % (0-9) Eosinophils (%) (Auto) 0 % (0-3) Basophils (%) (Auto) 1 % (0-3) Neutrophils # (Auto) 27.4 x10^3uL (1.8-7.7) Lymphocytes # (Auto) 1.1 x10^3/uL (1.0-4.8) Monocytes # (Auto) 1.2 x10^3/uL (0.0-1.1) Eosinophils # (Auto) 0.0 x10^3/uL (0.0-0.7) Basophils # (Auto) 0.2 x10^3/uL (0.0-0.2) Sodium Level 144 mmol/L (136-145) Potassium Level 3.5 mmol/L (3.5-5.1) Chloride Level 109 mmol/L (98-107) Carbon Dioxide Level 22 mmol/L (21-32) Anion Gap 13 (6-14) Blood Urea Nitrogen 22 mg/dL (8-26) Creatinine 1.3 mg/dL (0.7-1.3) Estimated GFR (Cockcroft-Gault) 63.3 BUN/Creatinine Ratio 17 (6-20) Glucose Level 128 mg/dL (70-99) Calcium Level 8.9 mg/dL (8.5-10.1) Total Bilirubin 2.6 mg/dL (0.2-1.0) Aspartate Amino Transf (AST/SGOT) 28 U/L (15-37) Alanine Aminotransferase (ALT/SGPT) 11 U/L (16-63) Alkaline Phosphatase 65 U/L (46-116) Total Protein 6.0 g/dL (6.4-8.2) Albumin 2.5 g/dL (3.4-5.0) Albumin/Globulin Ratio 0.7 (1.0-1.7) Laboratory Tests Test 09/12/18 17:20 09/12/18 18:00 09/12/18 22:00 09/13/18 02:00 Glucose (Fingerstick) 122 mg/dL (70-99) White Blood Count 21.8 x10^3/uL (4.0-11.0) 30.0 x10^3/uL (4.0-11.0) Red Blood Count 4.32 x10^6/uL (4.30-5.70) 3.99 x10^6/uL (4.30-5.70) Hemoglobin 12.9 g/dL (13.0-17.5) 11.7 g/dL (13.0-17.5) Hematocrit 40.8 % (39.0-53.0) 38.0 % (39.0-53.0) Mean Corpuscular Volume 95 fL (79-100) 95 fL (79-100) Mean Corpuscular Hemoglobin 30 pg (25-35) 29 pg (25-35) Mean Corpuscular Hemoglobin Concent 32 g/dL (31-37) 31 g/dL (31-37) Red Cell Distribution Width 16.0 % (11.5-14.5) 16.1 % (11.5-14.5) Platelet Count 378 x10^3/uL (140-400) 306 x10^3/uL (140-400) Neutrophils (%) (Auto) 94 % (31-73) 92 % (31-73) Lymphocytes (%) (Auto) 3 % (24-48) 4 % (24-48) Monocytes (%) (Auto) 2 % (0-9) 4 % (0-9) Eosinophils (%) (Auto) 0 % (0-3) 0 % (0-3) Basophils (%) (Auto) 1 % (0-3) 1 % (0-3) Neutrophils # (Auto) 20.6 x10^3uL (1.8-7.7) 27.4 x10^3uL (1.8-7.7) Lymphocytes # (Auto) 0.7 x10^3/uL (1.0-4.8) 1.1 x10^3/uL (1.0-4.8) Monocytes # (Auto) 0.4 x10^3/uL (0.0-1.1) 1.2 x10^3/uL (0.0-1.1) Eosinophils # (Auto) 0.0 x10^3/uL (0.0-0.7) 0.0 x10^3/uL (0.0-0.7) Basophils # (Auto) 0.1 x10^3/uL (0.0-0.2) 0.2 x10^3/uL (0.0-0.2) Segmented Neutrophils % 85 % (35-66) Band Neutrophils % 10 % (0-9) Lymphocytes % 2 % (24-48) Monocytes % 3 % (0-10) Platelet Estimate Adequate (ADEQUATE) Large Platelets Mod Lactic Acid Level 3.5 mmol/L (0.4-2.0) 2.5 mmol/L (0.4-2.0) 2.0 mmol/L (0.4-2.0) Sodium Level 144 mmol/L (136-145) Potassium Level 3.5 mmol/L (3.5-5.1) Chloride Level 109 mmol/L (98-107) Carbon Dioxide Level 22 mmol/L (21-32) Anion Gap 13 (6-14) Blood Urea Nitrogen 22 mg/dL (8-26) Creatinine 1.3 mg/dL (0.7-1.3) Estimated GFR (Cockcroft-Gault) 63.3 BUN/Creatinine Ratio 17 (6-20) Glucose Level 128 mg/dL (70-99) Calcium Level 8.9 mg/dL (8.5-10.1) Total Bilirubin 2.6 mg/dL (0.2-1.0) Aspartate Amino Transf (AST/SGOT) 28 U/L (15-37) Alanine Aminotransferase (ALT/SGPT) 11 U/L (16-63) Alkaline Phosphatase 65 U/L (46-116) Total Protein 6.0 g/dL (6.4-8.2) Albumin 2.5 g/dL (3.4-5.0) Albumin/Globulin Ratio 0.7 (1.0-1.7) Medications Active Scripts Medications Dose Route/Sig Max Daily Dose Days Date Category Dose Instructions Colace (Docusate Sodium) 100 Mg Capsule 1 Cap PO TID 09/09/18 Reported Metamucil Powder (Psyllium Seed (with Sugar)) 575 Gm Powder 575 Gm PO DAILY 09/09/18 Reported [place] 5-325 Tablet (Acetaminophen/Hydrocodone Bitart) 1 Each Tablet 7.5 Mg PO PRN Q6HRS PRN 09/09/18 Reported LAST DOSE GIVEN: Atorvastatin Calcium 40 Mg Tablet 1 Tab PO DAILY 08/12/18 Reported Metoprolol Tartrate 100 Mg Tablet 100 Mg PO DAILY 11/08/17 Reported Tamsulosin Hcl 0.4 Mg Cap.er.24h 0.4 Mg PO HS DAILY 11/08/17 Reported Vitamin C (Ascorbic Acid) 500 Mg Tablet 250 Mg PO DAILY 05/08/14 Reported Warfarin Sodium 5 Mg Tablet 1.5 Tab PO QWE 04/18/14 Reported Warfarin Sodium 5 Mg Tablet 1 Tab PO DAILY EXCEPT WED. 04/18/14 Reported Aspirin 81 Mg Tab.chew 81 Mg PO BID 08/22/13 Reported Lanoxin (Digoxin) 125 Mcg Tablet 125 Mcg PO DAILY 08/22/13 Reported Impression . IMPRESSION: 1. Abnormal x-ray. 2. Respiratory insufficiency. 3. Fever with shaking chills at home, possible sepsis. 4. Coronary artery disease. 5. Secondary pulmonary hypertension. 6. Obstructive sleep apnea. 7. Acute on chronic diastolic heart failure. 8. Permanent atrial fibrillation along with sick sinus syndrome, status post pacemaker implantation. 9. Possible aspiration. POSITIVE VIDEO IMPRESSION: 1. Mixed interstitial and airspace infiltrates in both lungs, predominantly dependent. There is likely a component of pulmonary edema, as well as acute infiltrate or pneumonia. 2. 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 Appears similar to that report prior study. 3. Mild splenomegaly. 4. Gynecomastia. Plan . FOLLOW SPEECH INPUT MAY NEED DOBBOFF OR PEG 1. Continue current empiric antibiotics. 2. CT REPORT NOTED 3. Follow clinical course and make further adjustments on antibiotics and medical regimen. 4. Lasix x 1. 5. Follow Cardiology input. BREN CARDOZO MD Sep 13, 2018 11:03
[2018-09-13 11:24] VITALS: BP 111/59
[2018-09-13] MEDS: IPRATRPIUM/ALBUTEROL 0.5/2.5MG 3 ML NEBU. NEB SCH ×3 (11:32→19:54)
--- NOTE | 2018-09-13 11:41 | NUR ---
SS following for discharge planning. SS reviewed pt chart. Pt is from home with spouse and is currently requiring oxygen. PT/OT ordered. SS will await PT/OT evaluations and recommendations and will proceed accordingly with discharge planning. SS will continue to follow for discharge planning.
[2018-09-13] MEDS: MEROPENEM 500 MG in IV NORMAL SALINE 50ML 50 ML IV SCH ×2 (12:18→17:42)
--- NOTE | 2018-09-13 12:58 | PDOC ---
MIKE ELLIOTT ENVIRONMENTAL SERVICE AIDE 09/13/18 1258: CARDIO Progress Notes Date and Time Date of Service 09/13/2018 Time of Evaluation 1230 Subjective Subjective: No Chest Pain, No shortness of breath, No Palpitations, Other (" I couldnt pee") Vitals Vitals Vital Signs Date Time Temp Pulse Resp B/P (MAP) Pulse Ox O2 Delivery O2 Flow Rate FiO2 09/13/18 11:32 95 Room Air 09/13/18 11:24 98.3 77 18 111/59 (76) 2.0 98.3 Weight Weight [ ] Input and Output Intake and Output Intake and Output 09/13/18 06:59 Intake Total 350 ml Balance 350 ml Intake Oral 200 ml IV Total 150 ml # Voids 10 Laboratory Labs Laboratory Tests Test 09/12/18 17:20 09/12/18 18:00 09/12/18 22:00 09/13/18 02:00 Glucose (Fingerstick) 122 mg/dL (70-99) White Blood Count 21.8 x10^3/uL (4.0-11.0) 30.0 x10^3/uL (4.0-11.0) Red Blood Count 4.32 x10^6/uL (4.30-5.70) 3.99 x10^6/uL (4.30-5.70) Hemoglobin 12.9 g/dL (13.0-17.5) 11.7 g/dL (13.0-17.5) Hematocrit 40.8 % (39.0-53.0) 38.0 % (39.0-53.0) Mean Corpuscular Volume 95 fL (79-100) 95 fL (79-100) Mean Corpuscular Hemoglobin 30 pg (25-35) 29 pg (25-35) Mean Corpuscular Hemoglobin Concent 32 g/dL (31-37) 31 g/dL (31-37) Red Cell Distribution Width 16.0 % (11.5-14.5) 16.1 % (11.5-14.5) Platelet Count 378 x10^3/uL (140-400) 306 x10^3/uL (140-400) Neutrophils (%) (Auto) 94 % (31-73) 92 % (31-73) Lymphocytes (%) (Auto) 3 % (24-48) 4 % (24-48) Monocytes (%) (Auto) 2 % (0-9) 4 % (0-9) Eosinophils (%) (Auto) 0 % (0-3) 0 % (0-3) Basophils (%) (Auto) 1 % (0-3) 1 % (0-3) Neutrophils # (Auto) 20.6 x10^3uL (1.8-7.7) 27.4 x10^3uL (1.8-7.7) Lymphocytes # (Auto) 0.7 x10^3/uL (1.0-4.8) 1.1 x10^3/uL (1.0-4.8) Monocytes # (Auto) 0.4 x10^3/uL (0.0-1.1) 1.2 x10^3/uL (0.0-1.1) Eosinophils # (Auto) 0.0 x10^3/uL (0.0-0.7) 0.0 x10^3/uL (0.0-0.7) Basophils # (Auto) 0.1 x10^3/uL (0.0-0.2) 0.2 x10^3/uL (0.0-0.2) Segmented Neutrophils % 85 % (35-66) Band Neutrophils % 10 % (0-9) Lymphocytes % 2 % (24-48) Monocytes % 3 % (0-10) Platelet Estimate Adequate (ADEQUATE) Large Platelets Mod Lactic Acid Level 3.5 mmol/L (0.4-2.0) 2.5 mmol/L (0.4-2.0) 2.0 mmol/L (0.4-2.0) Sodium Level 144 mmol/L (136-145) Potassium Level 3.5 mmol/L (3.5-5.1) Chloride Level 109 mmol/L (98-107) Carbon Dioxide Level 22 mmol/L (21-32) Anion Gap 13 (6-14) Blood Urea Nitrogen 22 mg/dL (8-26) Creatinine 1.3 mg/dL (0.7-1.3) Estimated GFR (Cockcroft-Gault) 63.3 BUN/Creatinine Ratio 17 (6-20) Glucose Level 128 mg/dL (70-99) Calcium Level 8.9 mg/dL (8.5-10.1) Total Bilirubin 2.6 mg/dL (0.2-1.0) Aspartate Amino Transf (AST/SGOT) 28 U/L (15-37) Alanine Aminotransferase (ALT/SGPT) 11 U/L (16-63) Alkaline Phosphatase 65 U/L (46-116) Total Protein 6.0 g/dL (6.4-8.2) Albumin 2.5 g/dL (3.4-5.0) Albumin/Globulin Ratio 0.7 (1.0-1.7) Microbiology Micro Microbiology 09/12/18 Blood Culture - Preliminary, Resulted NO GROWTH AFTER 1 DAY Physical Exam HEENT: Neck Supple W Full Motion Chest: Symmetric LUNGS: Other (basilar crackles) Heart: irregularly irregular (AFIB) Abdomen: Other (soft) Extremities: No Calf Tenderness, Other (2+ bilateral LE edema) Neurology: alert, oriented, follow commands Assessment Assessment 1. Fever/Leukocytosis with possible aspiration PNA and UTI. WBC 30, no stool yet 2. Acute on chronic diastolic CHF; recent echo with preserved LV systolic function as noted above. 3. CAD; catheterization 08/2018 with AUDITOR TAX of LAD, which is unchanged from previous cath in 2013. clinically stable 4. Permanent AFIB; rate controlled. on warfarin for stroke prevention 5. 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 Trace) 6. Hypertension; controlled 7. Hyperlipidemia; statin 8. Diabetes, II 9. S/P POD#4 incarcerated left inguinal hernia repair 10. Urinary retention: defer to PCP Recommendations Change med to IV, pt currently NPO. Metoprolol IV. IVF maintenance while NPO Speech eval. PCXR. Check INR with noted coumadin. If not able to tolerate PO then will place on heparin drip if INR is <2 Resume secondary preventions measures once PO tolerated Antibiotics as per ID Supportive care SHAWN PARKER MD 09/13/18 1403: CARDIO Progress Notes Assessment Assessment Patient seen and examined. Agree with ADMINISTRATIVE SUPPORT CLERK's assessment and plan. Acute on chronic diastolic heart failure better compensated with diuresis CAD status clinically stable Permanent atrial fibrillation rate controlled Continue antibiotics per ID team MIKE ELLIOTT APRN Sep 13, 2018 12:58 SHAWN PARKER MD Sep 13, 2018 14:03
[2018-09-13] MEDS ORDERED: IV 1/2 NORMAL SALINE 1,000 ML IV ONE (13:00)
[2018-09-13] MEDS: METOPROLOL TARTRATE 5 MG/5 ML VIAL. IVP SCH ×2 (13:45→18:12)
--- NOTE | 2018-09-13 13:45 | PDOC ---
PROGRESS NOTES Chief Complaint Chief Complaint sepsis, UTI aspiration PNA Acute on chronic diastolic CHF; recent echo with preserved LV systolic function as noted above. Hx CAD; htn, lipids, DM2, chronic diastolic CHF, with afib Permanent AFIB; rate controlled. on warfarin for stroke prevention History of Present Illness History of Present Illness tired to obtain urine sample, cannot find the meatus to straight cath, phimosis, no outlet , soft, will consult Urology ID consult following cont IV abx PT and OT as able cont current Vitals Vitals Vital Signs Date Time Temp Pulse Resp B/P (MAP) Pulse Ox O2 Delivery O2 Flow Rate FiO2 09/13/18 11:32 95 Room Air 09/13/18 11:24 98.3 77 18 111/59 (76) 2.0 98.3 Physical Exam General: Alert, Oriented X3, Cooperative, No acute distress Heart: Regular rate, No murmurs Lungs: Wheezing, Crackles, Other (much improved from lsat night, when he had frothy sputum, dyspnea, coarse rales) Extremities: No clubbing Skin: No rashes Labs LABS Laboratory Tests Test 09/12/18 17:20 09/12/18 18:00 09/12/18 22:00 09/13/18 02:00 Glucose (Fingerstick) 122 mg/dL (70-99) White Blood Count 21.8 x10^3/uL (4.0-11.0) 30.0 x10^3/uL (4.0-11.0) Red Blood Count 4.32 x10^6/uL (4.30-5.70) 3.99 x10^6/uL (4.30-5.70) Hemoglobin 12.9 g/dL (13.0-17.5) 11.7 g/dL (13.0-17.5) Hematocrit 40.8 % (39.0-53.0) 38.0 % (39.0-53.0) Mean Corpuscular Volume 95 fL (79-100) 95 fL (79-100) Mean Corpuscular Hemoglobin 30 pg (25-35) 29 pg (25-35) Mean Corpuscular Hemoglobin Concent 32 g/dL (31-37) 31 g/dL (31-37) Red Cell Distribution Width 16.0 % (11.5-14.5) 16.1 % (11.5-14.5) Platelet Count 378 x10^3/uL (140-400) 306 x10^3/uL (140-400) Neutrophils (%) (Auto) 94 % (31-73) 92 % (31-73) Lymphocytes (%) (Auto) 3 % (24-48) 4 % (24-48) Monocytes (%) (Auto) 2 % (0-9) 4 % (0-9) Eosinophils (%) (Auto) 0 % (0-3) 0 % (0-3) Basophils (%) (Auto) 1 % (0-3) 1 % (0-3) Neutrophils # (Auto) 20.6 x10^3uL (1.8-7.7) 27.4 x10^3uL (1.8-7.7) Lymphocytes # (Auto) 0.7 x10^3/uL (1.0-4.8) 1.1 x10^3/uL (1.0-4.8) Monocytes # (Auto) 0.4 x10^3/uL (0.0-1.1) 1.2 x10^3/uL (0.0-1.1) Eosinophils # (Auto) 0.0 x10^3/uL (0.0-0.7) 0.0 x10^3/uL (0.0-0.7) Basophils # (Auto) 0.1 x10^3/uL (0.0-0.2) 0.2 x10^3/uL (0.0-0.2) Segmented Neutrophils % 85 % (35-66) Band Neutrophils % 10 % (0-9) Lymphocytes % 2 % (24-48) Monocytes % 3 % (0-10) Platelet Estimate Adequate (ADEQUATE) Large Platelets Mod Lactic Acid Level 3.5 mmol/L (0.4-2.0) 2.5 mmol/L (0.4-2.0) 2.0 mmol/L (0.4-2.0) Sodium Level 144 mmol/L (136-145) Potassium Level 3.5 mmol/L (3.5-5.1) Chloride Level 109 mmol/L (98-107) Carbon Dioxide Level 22 mmol/L (21-32) Anion Gap 13 (6-14) Blood Urea Nitrogen 22 mg/dL (8-26) Creatinine 1.3 mg/dL (0.7-1.3) Estimated GFR (Cockcroft-Gault) 63.3 BUN/Creatinine Ratio 17 (6-20) Glucose Level 128 mg/dL (70-99) Calcium Level 8.9 mg/dL (8.5-10.1) Total Bilirubin 2.6 mg/dL (0.2-1.0) Aspartate Amino Transf (AST/SGOT) 28 U/L (15-37) Alanine Aminotransferase (ALT/SGPT) 11 U/L (16-63) Alkaline Phosphatase 65 U/L (46-116) Total Protein 6.0 g/dL (6.4-8.2) Albumin 2.5 g/dL (3.4-5.0) Albumin/Globulin Ratio 0.7 (1.0-1.7) Procalcitonin 14.90 ng/mL (0.00-0.10) Assessment and Plan Assessmemt and Plan Problems Medical Problems: (1) Pneumonia Status: Acute (2) Sepsis Status: Acute Comment Review of Relevant I have reviewed the following items tiffany (where applicable) has been applied. Labs Laboratory Tests Test 09/12/18 01:50 09/12/18 07:36 09/12/18 17:20 09/12/18 18:00 White Blood Count 15.8 x10^3/uL (4.0-11.0) 21.8 x10^3/uL (4.0-11.0) Red Blood Count 4.05 x10^6/uL (4.30-5.70) 4.32 x10^6/uL (4.30-5.70) Hemoglobin 12.1 g/dL (13.0-17.5) 12.9 g/dL (13.0-17.5) Hematocrit 38.1 % (39.0-53.0) 40.8 % (39.0-53.0) Mean Corpuscular Volume 94 fL (79-100) 95 fL (79-100) Mean Corpuscular Hemoglobin 30 pg (25-35) 30 pg (25-35) Mean Corpuscular Hemoglobin Concent 32 g/dL (31-37) 32 g/dL (31-37) Red Cell Distribution Width 15.8 % (11.5-14.5) 16.0 % (11.5-14.5) Platelet Count 305 x10^3/uL (140-400) 378 x10^3/uL (140-400) Neutrophils (%) (Auto) 90 % (31-73) 94 % (31-73) Lymphocytes (%) (Auto) 6 % (24-48) 3 % (24-48) Monocytes (%) (Auto) 4 % (0-9) 2 % (0-9) Eosinophils (%) (Auto) 0 % (0-3) 0 % (0-3) Basophils (%) (Auto) 1 % (0-3) 1 % (0-3) Neutrophils # (Auto) 14.2 x10^3uL (1.8-7.7) 20.6 x10^3uL (1.8-7.7) Lymphocytes # (Auto) 1.0 x10^3/uL (1.0-4.8) 0.7 x10^3/uL (1.0-4.8) Monocytes # (Auto) 0.6 x10^3/uL (0.0-1.1) 0.4 x10^3/uL (0.0-1.1) Eosinophils # (Auto) 0.0 x10^3/uL (0.0-0.7) 0.0 x10^3/uL (0.0-0.7) Basophils # (Auto) 0.1 x10^3/uL (0.0-0.2) 0.1 x10^3/uL (0.0-0.2) Segmented Neutrophils % 88 % (35-66) 85 % (35-66) Band Neutrophils % 4 % (0-9) 10 % (0-9) Lymphocytes % 5 % (24-48) 2 % (24-48) Monocytes % 2 % (0-10) 3 % (0-10) Metamyelocytes % 1 % (0-0) Platelet Estimate Adequate (ADEQUATE) Adequate (ADEQUATE) Giant Platelets Occ Prothrombin Time 21.2 SEC (11.7-14.0) Prothromb Time International Ratio 1.9 (0.8-1.1) Activated Partial Thromboplast Time 38 SEC (24-38) Sodium Level 140 mmol/L (136-145) Potassium Level 3.4 mmol/L (3.5-5.1) Chloride Level 105 mmol/L (98-107) Carbon Dioxide Level 23 mmol/L (21-32) Anion Gap 12 (6-14) Blood Urea Nitrogen 22 mg/dL (8-26) Creatinine 1.1 mg/dL (0.7-1.3) Estimated GFR (Cockcroft-Gault) 76.8 BUN/Creatinine Ratio 20 (6-20) Glucose Level 182 mg/dL (70-99) Lactic Acid Level 1.9 mmol/L (0.4-2.0) 3.5 mmol/L (0.4-2.0) Calcium Level 9.1 mg/dL (8.5-10.1) Magnesium Level 1.6 mg/dL (1.8-2.4) Total Bilirubin 1.3 mg/dL (0.2-1.0) Direct Bilirubin 0.5 mg/dL (0.0-0.2) Aspartate Amino Transf (AST/SGOT) 23 U/L (15-37) Alanine Aminotransferase (ALT/SGPT) 14 U/L (16-63) Alkaline Phosphatase 81 U/L (46-116) Troponin I Quantitative 0.040 ng/mL (0.000-0.055) OR-Wsm-T-Type Natriuretic Peptide 3767 pg/mL (0-449) Total Protein 6.4 g/dL (6.4-8.2) Albumin 2.8 g/dL (3.4-5.0) Albumin/Globulin Ratio 0.8 (1.0-1.7) Glucose (Fingerstick) 123 mg/dL (70-99) 122 mg/dL (70-99) Large Platelets Mod Test 09/12/18 22:00 09/13/18 02:00 Lactic Acid Level 2.5 mmol/L (0.4-2.0) 2.0 mmol/L (0.4-2.0) White Blood Count 30.0 x10^3/uL (4.0-11.0) Red Blood Count 3.99 x10^6/uL (4.30-5.70) Hemoglobin 11.7 g/dL (13.0-17.5) Hematocrit 38.0 % (39.0-53.0) Mean Corpuscular Volume 95 fL (79-100) Mean Corpuscular Hemoglobin 29 pg (25-35) Mean Corpuscular Hemoglobin Concent 31 g/dL (31-37) Red Cell Distribution Width 16.1 % (11.5-14.5) Platelet Count 306 x10^3/uL (140-400) Neutrophils (%) (Auto) 92 % (31-73) Lymphocytes (%) (Auto) 4 % (24-48) Monocytes (%) (Auto) 4 % (0-9) Eosinophils (%) (Auto) 0 % (0-3) Basophils (%) (Auto) 1 % (0-3) Neutrophils # (Auto) 27.4 x10^3uL (1.8-7.7) Lymphocytes # (Auto) 1.1 x10^3/uL (1.0-4.8) Monocytes # (Auto) 1.2 x10^3/uL (0.0-1.1) Eosinophils # (Auto) 0.0 x10^3/uL (0.0-0.7) Basophils # (Auto) 0.2 x10^3/uL (0.0-0.2) Sodium Level 144 mmol/L (136-145) Potassium Level 3.5 mmol/L (3.5-5.1) Chloride Level 109 mmol/L (98-107) Carbon Dioxide Level 22 mmol/L (21-32) Anion Gap 13 (6-14) Blood Urea Nitrogen 22 mg/dL (8-26) Creatinine 1.3 mg/dL (0.7-1.3) Estimated GFR (Cockcroft-Gault) 63.3 BUN/Creatinine Ratio 17 (6-20) Glucose Level 128 mg/dL (70-99) Calcium Level 8.9 mg/dL (8.5-10.1) Total Bilirubin 2.6 mg/dL (0.2-1.0) Aspartate Amino Transf (AST/SGOT) 28 U/L (15-37) Alanine Aminotransferase (ALT/SGPT) 11 U/L (16-63) Alkaline Phosphatase 65 U/L (46-116) Total Protein 6.0 g/dL (6.4-8.2) Albumin 2.5 g/dL (3.4-5.0) Albumin/Globulin Ratio 0.7 (1.0-1.7) Procalcitonin 14.90 ng/mL (0.00-0.10) Laboratory Tests Test 09/12/18 17:20 09/12/18 18:00 09/12/18 22:00 09/13/18 02:00 Glucose (Fingerstick) 122 mg/dL (70-99) White Blood Count 21.8 x10^3/uL (4.0-11.0) 30.0 x10^3/uL (4.0-11.0) Red Blood Count 4.32 x10^6/uL (4.30-5.70) 3.99 x10^6/uL (4.30-5.70) Hemoglobin 12.9 g/dL (13.0-17.5) 11.7 g/dL (13.0-17.5) Hematocrit 40.8 % (39.0-53.0) 38.0 % (39.0-53.0) Mean Corpuscular Volume 95 fL (79-100) 95 fL (79-100) Mean Corpuscular Hemoglobin 30 pg (25-35) 29 pg (25-35) Mean Corpuscular Hemoglobin Concent 32 g/dL (31-37) 31 g/dL (31-37) Red Cell Distribution Width 16.0 % (11.5-14.5) 16.1 % (11.5-14.5) Platelet Count 378 x10^3/uL (140-400) 306 x10^3/uL (140-400) Neutrophils (%) (Auto) 94 % (31-73) 92 % (31-73) Lymphocytes (%) (Auto) 3 % (24-48) 4 % (24-48) Monocytes (%) (Auto) 2 % (0-9) 4 % (0-9) Eosinophils (%) (Auto) 0 % (0-3) 0 % (0-3) Basophils (%) (Auto) 1 % (0-3) 1 % (0-3) Neutrophils # (Auto) 20.6 x10^3uL (1.8-7.7) 27.4 x10^3uL (1.8-7.7) Lymphocytes # (Auto) 0.7 x10^3/uL (1.0-4.8) 1.1 x10^3/uL (1.0-4.8) Monocytes # (Auto) 0.4 x10^3/uL (0.0-1.1) 1.2 x10^3/uL (0.0-1.1) Eosinophils # (Auto) 0.0 x10^3/uL (0.0-0.7) 0.0 x10^3/uL (0.0-0.7) Basophils # (Auto) 0.1 x10^3/uL (0.0-0.2) 0.2 x10^3/uL (0.0-0.2) Segmented Neutrophils % 85 % (35-66) Band Neutrophils % 10 % (0-9) Lymphocytes % 2 % (24-48) Monocytes % 3 % (0-10) Platelet Estimate Adequate (ADEQUATE) Large Platelets Mod Lactic Acid Level 3.5 mmol/L (0.4-2.0) 2.5 mmol/L (0.4-2.0) 2.0 mmol/L (0.4-2.0) Sodium Level 144 mmol/L (136-145) Potassium Level 3.5 mmol/L (3.5-5.1) Chloride Level 109 mmol/L (98-107) Carbon Dioxide Level 22 mmol/L (21-32) Anion Gap 13 (6-14) Blood Urea Nitrogen 22 mg/dL (8-26) Creatinine 1.3 mg/dL (0.7-1.3) Estimated GFR (Cockcroft-Gault) 63.3 BUN/Creatinine Ratio 17 (6-20) Glucose Level 128 mg/dL (70-99) Calcium Level 8.9 mg/dL (8.5-10.1) Total Bilirubin 2.6 mg/dL (0.2-1.0) Aspartate Amino Transf (AST/SGOT) 28 U/L (15-37) Alanine Aminotransferase (ALT/SGPT) 11 U/L (16-63) Alkaline Phosphatase 65 U/L (46-116) Total Protein 6.0 g/dL (6.4-8.2) Albumin 2.5 g/dL (3.4-5.0) Albumin/Globulin Ratio 0.7 (1.0-1.7) Procalcitonin 14.90 ng/mL (0.00-0.10) Microbiology 09/12/18 Blood Culture - Preliminary, Resulted NO GROWTH AFTER 1 DAY Medications Current Medications Piperacillin Sod/ Tazobactam Sod 4.5 gm/Sodium Chloride 100 ml @ 200 mls/hr 1X ONCE IV Last administered on 09/12/18at 03:03; Start 09/12/18 at 02:30; Stop 09/12/18 at 02:59; Status DC Vancomycin HCl (Vanco Per Pharmacy) 1 each PRN DAILY PRN MC SEE COMMENTS Last administered on 09/12/18at 05:25; Start 09/12/18 at 02:15; Stop 09/12/18 at 13:38; Status DC Sodium Chloride 1,000 ml @ 1,000 mls/hr 1X ONCE IV Last administered on 09/12/18at 03:02; Start 09/12/18 at 02:30; Stop 09/12/18 at 03:29; Status DC Acetaminophen (Tylenol) 1,000 mg 1X ONCE PO Last administered on 09/12/18at 03:11; Start 09/12/18 at 02:30; Stop 09/12/18 at 02:31; Status DC Vancomycin HCl 2 gm/Sodium Chloride 500 ml @ 250 mls/hr 1X ONCE IV Last admi nistered on 09/12/18at 04:59; Start 09/12/18 at 03:30; Stop 09/12/18 at 05:29; Status DC Sodium Chloride 2,340 ml @ 2,340 mls/hr Q1H IV Last administered on 09/12/18at 03:02; Start 09/12/18 at 02:47; Stop 09/12/18 at 03:06; Status DC Ondansetron HCl (Zofran) 4 mg PRN Q8HRS PRN IV NAUSEA/VOMITING 1ST CHOICE; Start 09/12/18 at 03:00; Stop 09/13/18 at 02:59; Status DC Albuterol/ Ipratropium (Duoneb) 3 ml RTQID NEB Last administered on 09/13/18at 11:32; Start 09/12/18 at 08:00; Stop 09/13/18 at 07:59; Status DC Sodium Chloride 1,000 ml @ 1,000 mls/hr Q1H IV Last administered on 09/12/18at 04:06; Start 09/12/18 at 03:06; Stop 09/12/18 at 04:40; Status DC Acetaminophen/ Hydrocodone Bitart (Lortab 5/325) 7.5 tab PRN Q6HRS PRN PO MODERATE PAIN; Start 09/12/18 at 04:30; Stop 09/12/18 at 04:46; Status DC Lactobacillus Rhamnosus (Culturelle) 1 cap BID PO Last administered on 09/12/18at 08:22; Start 09/12/18 at 09:00 Acetaminophen/ Hydrocodone Bitart (Lortab 5/325) 1 tab PRN Q6HRS PRN PO MODERATE PAIN Last administered on 09/12/18at 04:54; Start 09/12/18 at 04:46 Vancomycin HCl 1.25 gm/Sodium Chloride 250 ml @ 167 mls/hr Q18H IV ; Start 09/12/18 at 23:00; Stop 09/12/18 at 23:00; Status DC Vancomycin HCl (Vancomycin Trough Level) 1 each 1X ONCE MC ; Start 09/13/18 at 16:30; Stop 09/13/18 at 16:30; Status DC Furosemide (Lasix) 40 mg 1X ONCE IVP Last administered on 09/12/18at 13:36; Start 09/12/18 at 12:45; Stop 09/12/18 at 12:46; Status DC Potassium Chloride (Klor-Con) 40 meq 1X ONCE PO Last administered on 09/12/18at 13:36; Start 09/12/18 at 12:45; Stop 09/12/18 at 12:46; Status DC Piperacillin Sod/ Tazobactam Sod 3.375 gm/Sodium Chloride 50 ml @ 100 mls/hr Q6 HRS IV Last administered on 09/13/18at 05:37; Start 09/12/18 at 14:00; Stop 09/13/18 at 10:14; Status DC Aspirin (Children'S Aspirin) 81 mg BID PO ; Start 09/12/18 at 21:00 Atorvastatin Calcium (Lipitor) 40 mg QHS PO ; Start 09/12/18 at 21:00 Digoxin (Lanoxin) 125 mcg DAILY PO Last administered on 09/12/18at 15:29; Start 09/12/18 at 15:00 Metoprolol Tartrate (Lopressor) 100 mg DAILY PO Last administered on 09/12/18at 15:28; Start 09/12/18 at 15:00; Stop 09/13/18 at 12:48; Status DC Warfarin Sodium (Coumadin) 5 mg [id number] PO Last administered on 09/12/18at 15:28; Start 09/12/18 at 16:00 Warfarin Sodium (Coumadin) 7.5 mg We PO ; Start 09/18/18 at 16:00 Magnesium Sulfate 50 ml @ 25 mls/hr 1X ONCE IV Last administered on 09/12/18at 15:32; Start 09/12/18 at 15:00; Stop 09/12/18 at 16:59; Status DC Warfarin Sodium (Coumadin Per Physician) 1 each PRN DAILY PRN MC SEE COMMENTS; Start 09/12/18 at 15:15 Diltiazem HCl 125 mg/Dextrose 125 ml @ 5 mls/hr CONT PRN IV SEE I/O RECORD; Start 09/12/18 at 19:15 Sodium Chloride 1,000 ml @ 999 mls/hr 1X ONCE IV Last administered on 09/12/18at 20:16; Start 09/12/18 at 20:15; Stop 09/12/18 at 21:15; Status DC Meropenem 500 mg/ Sodium Chloride 50 ml @ 100 mls/hr Q6HRS IV Last administered on 09/13/18at 12:18; Start 09/13/18 at 12:00 Micafungin Sodium 100 mg/Dextrose 100 ml @ 100 mls/hr Q24H IV Last administered on 09/13/18at 10:50; Start 09/13/18 at 12:00 Linezolid (Zyvox) 600 mg BID PO ; Start 09/13/18 at 10:15; Stop 09/13/18 at 10:17; Status DC Linezolid/Dextrose 300 ml @ 300 mls/hr Q12HR IV Last administered on 09/13/18at 12:18; Start 09/13/18 at 10:30 Metoprolol Tartrate (Lopressor Vial) 5 mg Q6HRS IVP ; Start 09/13/18 at 13:00 Sodium Chloride 1,000 ml @ 60 mls/hr 1X ONCE IV ; Start 09/13/18 at 13:00; Stop 09/14/18 at 05:39 Active Scripts Active Reported Colace (Docusate Sodium) 100 Mg Capsule 1 Cap PO TID Metamucil Powder (Psyllium Seed (with Sugar)) 575 Gm Powder 575 Gm PO DAILY Red Bud 5-325 Tablet (Acetaminophen/Hydrocodone Bitart) 1 Each Tablet 7.5 Mg PO PRN Q6HRS PRN LAST DOSE GIVEN: Atorvastatin Calcium 40 Mg Tablet 1 Tab PO DAILY Metoprolol Tartrate 100 Mg Tablet 100 Mg PO DAILY Tamsulosin Hcl 0.4 Mg Cap.er.24h 0.4 Mg PO HS DAILY Vitamin C (Ascorbic Acid) 500 Mg Tablet 250 Mg PO DAILY Warfarin Sodium 5 Mg Tablet 1.5 Tab PO QWE Warfarin Sodium 5 Mg Tablet 1 Tab PO DAILY EXCEPT SUN. Aspirin 81 Mg Tab.chew 81 Mg PO BID Lanoxin (Digoxin) 125 Mcg Tablet 125 Mcg PO DAILY Vitals/I & O Vital Sign - Last 24 Hours 09/12/18 09/12/18 09/12/18 09/12/18 15:00 15:10 15:28 15:29 Temp 98.8 98.8 Pulse 107 64 64 Resp 18 B/P (MAP) 147/76 (99) 104/54 104/54 Pulse Ox 86 O2 Delivery Nasal Cannula Nasal Cannula O2 Flow Rate 2.0 2.0 09/12/18 09/12/18 09/12/18 09/12/18 15:41 16:03 18:50 19:20 Temp 100.4 102.8 101.0 100.4 102.8 101.0 Pulse 119 127 109 Resp 30 34 24 B/P (MAP) 143/98 (113) 164/98 (120) 122/56 (78) Pulse Ox 85 3 91 O2 Delivery Nasal Cannula Nasal Cannula Nasal Cannula Nasal Cannula O2 Flow Rate 2.0 92.0 3.0 4.0 09/12/18 09/12/18 09/13/18 09/13/18 20:52 22:39 02:53 07:00 Temp 100.7 98.9 98.4 100.7 98.9 98.4 Pulse 81 86 73 Resp 20 20 18 B/P (MAP) 111/69 (83) 138/62 (87) 108/55 (72) Pulse Ox 93 90 92 96 O2 Delivery Nasal Cannula Nasal Cannula Nasal Cannula Nasal Cannula O2 Flow Rate 2.0 3.0 3.0 3.0 09/13/18 09/13/18 09/13/18 09/13/18 08:00 08:09 11:24 11:32 Temp 98.3 98.3 Pulse 77 Resp 18 B/P (MAP) 111/59 (76) Pulse Ox 97 95 95 O2 Delivery Nasal Cannula Nasal Cannula Nasal Cannula Room Air O2 Flow Rate 3.0 4.0 2.0 Intake and Output 09/12/18 09/12/18 09/13/18 15:00 23:00 07:00 Intake Total 200 ml 50 ml 100 ml Balance 200 ml 50 ml 100 ml RADHA CALERO MD Sep 13, 2018 13:45
[2018-09-13 14:10] LABS: BILIRUBIN,URINE NEGATIVE (NEG); CLARITY,URINE CLOUDY; COLOR,URINE AMBER; NITRITE,URINE NEGATIVE (NEG); PROTEIN,URINE 30 mg/dL (NEG-TRACE)
[2018-09-13] MEDS ORDERED: BARIUM SULFATE 40% (APPLE) 148 GM PWD. PO ONE (14:15)
--- NOTE | 2018-09-13 14:21 | PDOC2 ---
GUSTAVO VILLEGAS Imelda [employer] 09/13/18 1421: UROLOGY CONSULT Date of Consult Date of Consult DATE: 09/13/18 TIME: 14:11 Reason for Consult Reason for Consult: tight phimosis Referring Physician Referring Physician: Dr. Woods Identification/Chief Complaint Chief Complaint tight phimosis Source Source: Patient History of Present Illness Reason for Visit: This pleasant 87 year old male was admitted for acute on chronic CHF, SOB and altered mental status . During the course of his hospitalization, the RN attempted to straight cath for the collection of a UA and discovered that he had a very tight phimosis/foreskin which completely eclipsed his urethral meatus. He was able to collect a UA, but this was done by the patient voiding into a urinal; RN reports he had a good stream for the collection. The patient states that he is not circumcised and has always had extra skin around his penis, but it started getting tighter when he had a cardiac cath 5 months ago. Since then, he has has noticed worsening problems with his foreskin, as it has been getting tighter and tighter until he is unable to visualize his meatus. In spite of this, he reports he is voiding well and does not feel like he is having any trouble emptying his bladder. He also denies daytime frequency or nocturia. He sometimes gets up once at night to void, but this is not bothersome to him. His attending RN bladder scanned him earlier and his PVR was just 175. He also has no dysuria, abd or flank pain. Past Medical History Cardiovascular: AFIB, CAD, CHF, HTN, Hyperlipidemia Pulmonary: COPD, Other CENTRAL NERVOUS SYSTEM: Other GI: No pertinent hx Heme/Onc: No pertinent hx Hepatobiliary: No pertinent hx Psych: No pertinent hx Musculoskeletal: Osteoarthritis Rheumatologic: No pertinent hx Infectious disease: No pertinent hx Renal/: No pertinent hx Endocrine: Diabetes Past Surgical History Past Surgical History: Pacemaker, Cholecystectomy, Other Family History Family History: Heart Disease Social History ALCOHOL: none Drugs: None Lives: with Family Current Problem List Problems: (1) Phimosis Current Medications Current Medications Current Medications Amino Acids/ Glycerin/ Electrolytes 1,000 ml @ 80 mls/hr [id number] IV ; Start 09/13/18 at 14:00 Aspirin (Children'S Aspirin) 81 mg BID PO ; Start 09/12/18 at 21:00 Atorvastatin Calcium (Lipitor) 40 mg QHS PO ; Start 09/12/18 at 21:00 Digoxin (Lanoxin) 125 mcg DAILY PO Last administered on 09/12/18at 15:29; Start 09/12/18 at 15:00 Diltiazem HCl 125 mg/Dextrose 125 ml @ 5 mls/hr CONT PRN IV SEE I/O RECORD; Start 09/12/18 at 19:15 Furosemide (Lasix) 40 mg 1X ONCE IVP ; Start 09/13/18 at 14:30; Stop 09/13/18 at 14:31 Linezolid (Zyvox) 600 mg BID PO ; Start 09/13/18 at 10:15; Stop 09/13/18 at 10:17; Status DC Linezolid/Dextrose 300 ml @ 300 mls/hr Q12HR IV Last administered on 09/13/18at 12:18; Start 09/13/18 at 10:30 Magnesium Sulfate 50 ml @ 25 mls/hr 1X ONCE IV Last administered on 09/12/18at 15:32; Start 09/12/18 at 15:00; Stop 09/12/18 at 16:59; Status DC Meropenem 500 mg/ Sodium Chloride 50 ml @ 100 mls/hr Q6HRS IV Last administered on 09/13/18at 12:18; Start 09/13/18 at 12:00 Metoprolol Tartrate (Lopressor Vial) 5 mg Q6HRS IVP Last administered on 09/13/18at 13:45; Start 09/13/18 at 13:00 Metoprolol Tartrate (Lopressor) 100 mg DAILY PO Last administered on 09/12/18at 15:28; Start 09/12/18 at 15:00; Stop 09/13/18 at 12:48; Status DC Micafungin Sodium 100 mg/Dextrose 100 ml @ 100 mls/hr Q24H IV Last administered on 09/13/18at 10:50; Start 09/13/18 at 12:00 Sodium Chloride 1,000 ml @ 60 mls/hr 1X ONCE IV Last administered on 09/13/18 13:45; Start 09/13/18 at 13:00; Stop 09/14/18 at 05:39 Sodium Chloride 1,000 ml @ 999 mls/hr 1X ONCE IV Last administered on 09/12/18at 20:16; Start 09/12/18 at 20:15; Stop 09/12/18 at 21:15; Status DC Vancomycin HCl (Vancomycin Trough Level) 1 each 1X ONCE MC ; Start 09/13/18 at 16:30; Stop 09/13/18 at 16:30; Status DC Vancomycin HCl 1.25 gm/Sodium Chloride 250 ml @ 167 mls/hr Q18H IV ; Start 09/12/18 at 23:00; Stop 09/12/18 at 23:00; Status DC Warfarin Sodium (Coumadin Per Physician) 1 each PRN DAILY PRN MC SEE COMMENTS; Start 09/12/18 at 15:15 Warfarin Sodium (Coumadin) 5 mg [id number] PO Last administered on 09/12/18at 15:28; Start 09/12/18 at 16:00 Warfarin Sodium (Coumadin) 7.5 mg We PO ; Start 09/18/18 at 16:00 Allergies Allergies: Coded Allergies: No Known Drug Allergies (Unverified , 09/09/18) Self-report by patient ROS Review Of Systems: CONSTITUTIONAL: No fever or chills EYES: No recent changes SKIN: No rash or itching CARDIOVASCULAR: No chest pain, syncope, palpitations, or edema RESPIRATORY: + cough GASTROINTESTINAL: No nausea, vomiting or abdominal pain NEUROLOGICAL: No headaches or weakness ENDOCRINE: No cold or heat intolerance GENITOURINARY: No urgency or frequency of urination. Tight phimosis MUSCULOSKELETAL: No back pain or joint pain LYMPHATICS: No enlarged lymph nodes PSYCHIATRIC: No anxiety or depression Physical Exam Physical Exam: General: Pleasant, no acute distress, well groomed Eyes: conjunctiva anicteric, eyes full range of motion ENT: moist oral mucosa, normal dentition Neck: Trachea midline, no masses Respiratory: unlabored breathing, not using accessory muscles, Abdomen: soft, nontender, nondistended, no hepatosplenomegaly, no masses Pelvic: very tight phimosis; urethral meatus is not visible. PVR via bladder scan is 175 Psych: No anxiety/depression. Vitals VITALS Vital Signs Date Time Temp Pulse Resp B/P (MAP) Pulse Ox O2 Delivery O2 Flow Rate FiO2 09/13/18 13:45 77 111/59 09/13/18 11:32 95 Room Air 09/13/18 11:24 98.3 18 2.0 98.3 Labs Labs Laboratory Tests Test 09/12/18 01:50 09/12/18 07:36 09/12/18 17:20 09/12/18 18:00 White Blood Count 15.8 x10^3/uL (4.0-11.0) 21.8 x10^3/uL (4.0-11.0) Red Blood Count 4.05 x10^6/uL (4.30-5.70) 4.32 x10^6/uL (4.30-5.70) Hemoglobin 12.1 g/dL (13.0-17.5) 12.9 g/dL (13.0-17.5) Hematocrit 38.1 % (39.0-53.0) 40.8 % (39.0-53.0) Mean Corpuscular Volume 94 fL (79-100) 95 fL (79-100) Mean Corpuscular Hemoglobin 30 pg (25-35) 30 pg (25-35) Mean Corpuscular Hemoglobin Concent 32 g/dL (31-37) 32 g/dL (31-37) Red Cell Distribution Width 15.8 % (11.5-14.5) 16.0 % (11.5-14.5) Platelet Count 305 x10^3/uL (140-400) 378 x10^3/uL (140-400) Neutrophils (%) (Auto) 90 % (31-73) 94 % (31-73) Lymphocytes (%) (Auto) 6 % (24-48) 3 % (24-48) Monocytes (%) (Auto) 4 % (0-9) 2 % (0-9) Eosinophils (%) (Auto) 0 % (0-3) 0 % (0-3) Basophils (%) (Auto) 1 % (0-3) 1 % (0-3) Neutrophils # (Auto) 14.2 x10^3uL (1.8-7.7) 20.6 x10^3uL (1.8-7.7) Lymphocytes # (Auto) 1.0 x10^3/uL (1.0-4.8) 0.7 x10^3/uL (1.0-4.8) Monocytes # (Auto) 0.6 x10^3/uL (0.0-1.1) 0.4 x10^3/uL (0.0-1.1) Eosinophils # (Auto) 0.0 x10^3/uL (0.0-0.7) 0.0 x10^3/uL (0.0-0.7) Basophils # (Auto) 0.1 x10^3/uL (0.0-0.2) 0.1 x10^3/uL (0.0-0.2) Segmented Neutrophils % 88 % (35-66) 85 % (35-66) Band Neutrophils % 4 % (0-9) 10 % (0-9) Lymphocytes % 5 % (24-48) 2 % (24-48) Monocytes % 2 % (0-10) 3 % (0-10) Metamyelocytes % 1 % (0-0) Platelet Estimate Adequate (ADEQUATE) Adequate (ADEQUATE) Giant Platelets Occ Prothrombin Time 21.2 SEC (11.7-14.0) Prothromb Time International Ratio 1.9 (0.8-1.1) Activated Partial Thromboplast Time 38 SEC (24-38) Sodium Level 140 mmol/L (136-145) Potassium Level 3.4 mmol/L (3.5-5.1) Chloride Level 105 mmol/L (98-107) Carbon Dioxide Level 23 mmol/L (21-32) Anion Gap 12 (6-14) Blood Urea Nitrogen 22 mg/dL (8-26) Creatinine 1.1 mg/dL (0.7-1.3) Estimated GFR (Cockcroft-Gault) 76.8 BUN/Creatinine Ratio 20 (6-20) Glucose Level 182 mg/dL (70-99) Lactic Acid Level 1.9 mmol/L (0.4-2.0) 3.5 mmol/L (0.4-2.0) Calcium Level 9.1 mg/dL (8.5-10.1) Magnesium Level 1.6 mg/dL (1.8-2.4) Total Bilirubin 1.3 mg/dL (0.2-1.0) Direct Bilirubin 0.5 mg/dL (0.0-0.2) Aspartate Amino Transf (AST/SGOT) 23 U/L (15-37) Alanine Aminotransferase (ALT/SGPT) 14 U/L (16-63) Alkaline Phosphatase 81 U/L (46-116) Troponin I Quantitative 0.040 ng/mL (0.000-0.055) UK-Qyz-B-Type Natriuretic Peptide 3767 pg/mL (0-449) Total Protein 6.4 g/dL (6.4-8.2) Albumin 2.8 g/dL (3.4-5.0) Albumin/Globulin Ratio 0.8 (1.0-1.7) Glucose (Fingerstick) 123 mg/dL (70-99) 122 mg/dL (70-99) Large Platelets Mod Test 09/12/18 22:00 09/13/18 02:00 Lactic Acid Level 2.5 mmol/L (0.4-2.0) 2.0 mmol/L (0.4-2.0) White Blood Count 30.0 x10^3/uL (4.0-11.0) Red Blood Count 3.99 x10^6/uL (4.30-5.70) Hemoglobin 11.7 g/dL (13.0-17.5) Hematocrit 38.0 % (39.0-53.0) Mean Corpuscular Volume 95 fL (79-100) Mean Corpuscular Hemoglobin 29 pg (25-35) Mean Corpuscular Hemoglobin Concent 31 g/dL (31-37) Red Cell Distribution Width 16.1 % (11.5-14.5) Platelet Count 306 x10^3/uL (140-400) Neutrophils (%) (Auto) 92 % (31-73) Lymphocytes (%) (Auto) 4 % (24-48) Monocytes (%) (Auto) 4 % (0-9) Eosinophils (%) (Auto) 0 % (0-3) Basophils (%) (Auto) 1 % (0-3) Neutrophils # (Auto) 27.4 x10^3uL (1.8-7.7) Lymphocytes # (Auto) 1.1 x10^3/uL (1.0-4.8) Monocytes # (Auto) 1.2 x10^3/uL (0.0-1.1) Eosinophils # (Auto) 0.0 x10^3/uL (0.0-0.7) Basophils # (Auto) 0.2 x10^3/uL (0.0-0.2) Sodium Level 144 mmol/L (136-145) Potassium Level 3.5 mmol/L (3.5-5.1) Chloride Level 109 mmol/L (98-107) Carbon Dioxide Level 22 mmol/L (21-32) Anion Gap 13 (6-14) Blood Urea Nitrogen 22 mg/dL (8-26) Creatinine 1.3 mg/dL (0.7-1.3) Estimated GFR (Cockcroft-Gault) 63.3 BUN/Creatinine Ratio 17 (6-20) Glucose Level 128 mg/dL (70-99) Calcium Level 8.9 mg/dL (8.5-10.1) Total Bilirubin 2.6 mg/dL (0.2-1.0) Aspartate Amino Transf (AST/SGOT) 28 U/L (15-37) Alanine Aminotransferase (ALT/SGPT) 11 U/L (16-63) Alkaline Phosphatase 65 U/L (46-116) Total Protein 6.0 g/dL (6.4-8.2) Albumin 2.5 g/dL (3.4-5.0) Albumin/Globulin Ratio 0.7 (1.0-1.7) Procalcitonin 14.90 ng/mL (0.00-0.10) Laboratory Tests Test 09/12/18 17:20 09/12/18 18:00 09/12/18 22:00 09/13/18 02:00 Glucose (Fingerstick) 122 mg/dL (70-99) White Blood Count 21.8 x10^3/uL (4.0-11.0) 30.0 x10^3/uL (4.0-11.0) Red Blood Count 4.32 x10^6/uL (4.30-5.70) 3.99 x10^6/uL (4.30-5.70) Hemoglobin 12.9 g/dL (13.0-17.5) 11.7 g/dL (13.0-17.5) Hematocrit 40.8 % (39.0-53.0) 38.0 % (39.0-53.0) Mean Corpuscular Volume 95 fL (79-100) 95 fL (79-100) Mean Corpuscular Hemoglobin 30 pg (25-35) 29 pg (25-35) Mean Corpuscular Hemoglobin Concent 32 g/dL (31-37) 31 g/dL (31-37) Red Cell Distribution Width 16.0 % (11.5-14.5) 16.1 % (11.5-14.5) Platelet Count 378 x10^3/uL (140-400) 306 x10^3/uL (140-400) Neutrophils (%) (Auto) 94 % (31-73) 92 % (31-73) Lymphocytes (%) (Auto) 3 % (24-48) 4 % (24-48) Monocytes (%) (Auto) 2 % (0-9) 4 % (0-9) Eosinophils (%) (Auto) 0 % (0-3) 0 % (0-3) Basophils (%) (Auto) 1 % (0-3) 1 % (0-3) Neutrophils # (Auto) 20.6 x10^3uL (1.8-7.7) 27.4 x10^3uL (1.8-7.7) Lymphocytes # (Auto) 0.7 x10^3/uL (1.0-4.8) 1.1 x10^3/uL (1.0-4.8) Monocytes # (Auto) 0.4 x10^3/uL (0.0-1.1) 1.2 x10^3/uL (0.0-1.1) Eosinophils # (Auto) 0.0 x10^3/uL (0.0-0.7) 0.0 x10^3/uL (0.0-0.7) Basophils # (Auto) 0.1 x10^3/uL (0.0-0.2) 0.2 x10^3/uL (0.0-0.2) Segmented Neutrophils % 85 % (35-66) Band Neutrophils % 10 % (0-9) Lymphocytes % 2 % (24-48) Monocytes % 3 % (0-10) Platelet Estimate Adequate (ADEQUATE) Large Platelets Mod Lactic Acid Level 3.5 mmol/L (0.4-2.0) 2.5 mmol/L (0.4-2.0) 2.0 mmol/L (0.4-2.0) Sodium Level 144 mmol/L (136-145) Potassium Level 3.5 mmol/L (3.5-5.1) Chloride Level 109 mmol/L (98-107) Carbon Dioxide Level 22 mmol/L (21-32) Anion Gap 13 (6-14) Blood Urea Nitrogen 22 mg/dL (8-26) Creatinine 1.3 mg/dL (0.7-1.3) Estimated GFR (Cockcroft-Gault) 63.3 BUN/Creatinine Ratio 17 (6-20) Glucose Level 128 mg/dL (70-99) Calcium Level 8.9 mg/dL (8.5-10.1) Total Bilirubin 2.6 mg/dL (0.2-1.0) Aspartate Amino Transf (AST/SGOT) 28 U/L (15-37) Alanine Aminotransferase (ALT/SGPT) 11 U/L (16-63) Alkaline Phosphatase 65 U/L (46-116) Total Protein 6.0 g/dL (6.4-8.2) Albumin 2.5 g/dL (3.4-5.0) Albumin/Globulin Ratio 0.7 (1.0-1.7) Procalcitonin 14.90 ng/mL (0.00-0.10) Assessment/Plan Assessment/Plan Pt is voiding well, PVR is just 175. Will start Flomax to help with this, but no need for catheterization. Fluocinonide BID for phimoses. Dr. Bell to evaluate him in the am. TYSHAWN BELL MD 09/13/18 1707: UROLOGY CONSULT Assessment/Plan Assessment/Plan Agree with assessment and plan. GUSTAVO VILLEGAS APRN Sep 13, 2018 14:21 TYSHAWN BELL MD Sep 13, 2018 17:02
[2018-09-13 14:23] LABS: BACTERIA,URINE 0 /HPF (0-FEW); RBC,URINE 0 /HPF (0-2); SQUAMOUS EPITHELIAL CELL,UR MOD /LPF; YEAST,URINE PRESENT /HPF
[2018-09-13 14:24] LABS: WBC,URINE RARE /HPF (0-4)
[2018-09-13] MEDS ORDERED: FUROSEMIDE 40 MG/4 ML VIAL. IVP ONE (14:30)
[2018-09-13 14:43] VITALS: BP_SYST 176; BP_DIAS 59; BP_DIAS 61
[2018-09-13] MEDS: TAMSULOSIN 0.4 MG CAP.ER.24H. PO SCH (15:00)
[2018-09-13] MEDS: WARFARIN 5 MG TABLET. PO SCH (16:00)
--- NOTE | 2018-09-13 16:01 | RAD ---
EXAM: CHEST 1 VIEW. HISTORY: Pneumonia, congestive heart failure. COMPARISON: 09/12/2018. FINDINGS: A frontal view of the chest is obtained. A left-sided pacemaker has its leads in the right atrium and right ventricle. Bilateral perihilar and basilar opacities are consistent with multifocal pneumonia or aspiration. Blunting of the left costophrenic angle indicates a small left pleural effusion versus scarring. A bulla is noted in the left base. There is no pneumothorax. The heart is mildly enlarged. There are atherosclerotic calcifications of the aorta. IMPRESSION: 1. Bibasilar pneumonia versus aspiration. 2. Mild cardiomegaly. Electronically signed by: Ronda Klein MD (09/13/2018 3:58 PM) [facility]
--- NOTE | 2018-09-13 16:02 | RAD ---
EXAM: Modified barium swallow. HISTORY: Dysphagia. Pneumonia. FINDINGS: Barium contrast material was administered orally and multiple consistencies under the direction of speech pathology, and followed in its course during swallowing with video fluoroscopy. A fluoroscopic image and multiple videofluoroscopic clips were obtained. Fluoroscopy time 2.7 minutes. The swallow was very weak with poor clearance of pharyngeal residue with all consistencies. Liquids pooled at the epiglottis. Both the swallow and residue lead to laryngeal penetration and aspiration with multiple consistencies. IMPRESSION: 1. Very weak swallow, resulting in pharyngeal residue and aspiration with multiple consistencies. Refer to the full report by speech pathology for more detail. Electronically signed by: Ronda Klein MD (09/13/2018 3:59 PM) [facility]
--- NOTE | 2018-09-13 16:05 | RAD ---
CT CHEST WO CONTRAST Indication: Possible interstitial lung disease. Exposure: One or more of the following individualized dose reduction techniques were utilized for this examination: 1. Automated exposure control 2. Adjustment of the mA and/or kV according to patient size 3. Use of iterative reconstruction technique. Technique: Standard imaging without intravenous contrast. COMPARISON: 12/29/2009. The heart size is enlarged. Coronary artery calcifications. No pericardial effusion. No significant lymph node enlargement. No evidence of thyroid mass. The aorta is calcified. 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 This is unchanged since the prior study. Vascular exam limited without intravenous contrast. No significant pleural effusion. There are mixed interstitial and airspace opacities in both lungs these are greatest in the dependent lower lobes and the dependent upper lobes as well as the dependent right middle lobe. The scan appears to be obtained during expiration. Small subpleural nodular opacities are identified, similar finding was seen previously. Large bullae identified in the left lung base laterally, measures 9.3 cm AP diameter. Slightly larger than prior study. Trachea and mainstem bronchi are patent. Degenerative changes of the spine. No evidence of aggressive bone destruction. Old appearing right posterior rib fracture deformity. Scans to the upper abdomen are limited by technique. Spleen is mildly enlarged. Spleen measures 13.5 cm length, as compared with 11.5 on prior study. Gynecomastia again seen. IMPRESSION: 1. Mixed interstitial and airspace infiltrates in both lungs, predominantly dependent. There is likely a component of pulmonary edema, as well as acute infiltrate or pneumonia. 2. 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 Appears similar to that report prior study. 3. Mild splenomegaly. 4. Gynecomastia. Electronically signed by: Maximino Cornell MD (09/13/2018 4:03 PM) [id number]
[2018-09-13] MEDS: FLUOCINONIDE 0.05% TOPICAL CREAM 15 GM TUBE. TP SCH (16:10)
[2018-09-13 16:55] LABS: VANC TR 5.4 mcg/mL (10.0-20.0)
[2018-09-13] MEDS: AMINO AC 3%/ELECTROLYTE/GLYCER 1,000 ML IV SCH (17:43)
[2018-09-13 18:53] VITALS: BP 116/69
[2018-09-13] MEDS: ATORVASTATIN CALCIUM 40 MG TABLET. PO SCH (20:25)
[2018-09-13 23:00] VITALS: BP 134/64
[2018-09-14] MEDS: METOPROLOL TARTRATE 5 MG/5 ML VIAL. IVP SCH ×4 (00:26→18:08)
[2018-09-14] MEDS: MEROPENEM 500 MG in IV NORMAL SALINE 50ML 50 ML IV SCH ×4 (00:27→18:06)
--- NOTE | 2018-09-14 01:12 | CONS ---
DATE OF CONSULTATION: 09/13/2018 INFECTIOUS DISEASE CONSULTATION: ROOM: 201. REQUESTING PHYSICIAN: Dr. Rucker. REASON FOR CONSULTATION: Positive sepsis screen. HISTORY OF PRESENT ILLNESS: The patient is a pleasant 87-year-old gentleman who recently underwent repair of left inguinal incarcerated hernia on 09/09/2018. He was discharged home, had been doing fairly well; however, he developed altered mental status, slurred speech and some fever as well as additional cough and some shortness of air, was brought back to [facility] Emergency Room on 09/12/2018. White count of 15.8 with 88 segs. A chest x-ray was obtained, showed some mild pulmonary edema from mild basilar infiltrates and interstitial lung disease. The patient states that after he had gone to the hospital, he did vomit. Also, states that he was having some complications passing his urine at home with some dysuria and hard time instigating the stream. He has not had any problems with diarrhea. He has not really had a bowel movement, but states he has passed some gas, has not fallen. PAST MEDICAL HISTORY: Positive for atrial fibrillation, coronary artery disease with occluded LAD, congestive heart failure, diastolic, hypertension, hyperlipidemia, COPD, osteoarthritis, diabetes, he has a history of influenza. PAST SURGICAL HISTORY: Positive for [employer] pacemaker placement, cholecystectomy, vein stripping, generator change in 2014. REVIEW OF SYSTEMS: Otherwise negative except for mentioned above. SOCIAL HISTORY: No tobacco or alcohol. He has a very supportive family. FAMILY HISTORY: Positive for heart disease. REVIEW OF SYSTEMS: Otherwise negative. ALLERGIES: No known drug allergies. CURRENT MEDICATIONS: Again, he received Cardizem drip for AFib. He has been placed on Zosyn, did receive vancomycin, aspirin, Lipitor, Lanoxin, Lasix, albuterol, metoprolol, Coumadin. PHYSICAL EXAMINATION: VITAL SIGNS: T-max has been 102.8, currently 98.4, pulse 73, respiratory rate 18, blood pressure 108/55, satting 97% on 4 liters. CONSTITUTIONAL: He is a pleasant gentleman. He is cooperative. He is in no acute distress. HEENT: Pupils equal and reactive. Normal conjunctivae. Oral cavity, pharynx is clear with some questionable dentition. NECK: Supple, no JVD. LUNGS: Mild crackles. HEART: S1, S2. Pacemaker without signs of complications. ABDOMEN: Positive bowel sounds, soft. There is no guarding. There is some questionable bladder distention. His left lower quadrant incision is well approximated. There is no drainage. There is no erythema. There is no warmth. There is no tenderness. EXTREMITIES: Without clubbing, cyanosis nor gross edema. SKIN: Warm to touch without signs of rash. NEUROLOGIC: He answers questions appropriately. PSYCHIATRIC: Affect is pleasant. LABORATORY DATA: Today, white count 30, hemoglobin 11.7, platelets of 306, neutrophils 92, glucose 128, AST 28, ALT 11, total bilirubin is elevated at 2.6. Chest x-ray reviewed in the history of present illness. IMPRESSION: 1. Fever. 2. Bandemia. 3. Leukocytosis, questionable pneumonia, aspiration. Did vomit here when he got here, questionable urinary tract infection. Abdomen is benign aside from some questionable bladder distention, but not necessarily tender there. According to nursing, there was some question of whether he was using urinal or not, but did have some urine in his previous brief, although currently is dry. 4. Questionable possible urinary tract infection with complaints of urinary complications prior to admit. 5. Status post repair of incarcerated left inguinal hernia, and had actually herniations on both sides of the cord structures at the internal inguinal ring on 09/09/2018, wound looks very clean and he feels benign from that standpoint. 6. Acute on chronic diastolic heart failure. 7. Coronary artery disease. 8. Permanent atrial fibrillation. 9. Diabetes. 10. Elevated total bilirubin, questionable secondary to atrial fibrillation, possible congestion. RECOMMENDATIONS: We will obtain a straight cath UA, C and S. This was ordered in the Emergency Room; however, there is no specimen in the lab; although, he has received some antimicrobials. White blood cell count did increase; therefore, rule out potential urinary tract infection or may be a possible resistant bacteria. We will reorder UA C and S with a white blood cell count increased despite the Zosyn and vancomycin, we will begin meropenem. We will dose Zyvox as well as micafungin. We will follow up labs, cultures, await for speech eval, this was discussed with family and also discussed with nursing and lab. Thank you for asking us to participate in this patient's care. If you have any questions, please do not hesitate to contact me. NEERU FLORES MD DR: Kylie JOB#: [id number] / [id number]
[2018-09-14] MEDS: AMINO AC 3%/ELECTROLYTE/GLYCER 1,000 ML IV SCH ×2 (02:30→14:52)
[2018-09-14 03:09] VITALS: BP 126/76
[2018-09-14 04:16] LABS: BASO # 0.1 x10^3/uL (0.0-0.2); BASO % 1 % (0-3); EOS % 0 % (0-3); HEMOGLOBIN 11.5 g/dL (13.0-17.5); LYMPH # 0.9 x10^3/uL (1.0-4.8); LYMPH % 8 % (24-48); MEAN CORPUSCULAR HEMOGLOBIN 30 pg (25-35); MEAN CORPUSCULAR HGB CONC 32 g/dL (31-37); MEAN CORPUSCULAR VOLUME 94 fL (79-100); MONO # 0.6 x10^3/uL (0.0-1.1); MONO % 5 % (0-9); NEUT # 10.3 x10^3uL (1.8-7.7); NEUT % 86 % (31-73); PLATELET COUNT 309 x10^3/uL (140-400); RED BLOOD COUNT 3.84 x10^6/uL (4.30-5.70); RED CELL DISTRIBUTION WIDTH 15.9 % (11.5-14.5)
[2018-09-14 04:28] LABS: ALBUMIN 2.3 g/dL (3.4-5.0); DIRECT BILIRUBIN 0.8 mg/dL (0.0-0.2); GFR 85.7; TOTAL BILIRUBIN 1.9 mg/dL (0.2-1.0); TOTAL PROTEIN 5.8 g/dL (6.4-8.2)
[2018-09-14] MEDS: IPRATRPIUM/ALBUTEROL 0.5/2.5MG 3 ML NEBU. NEB SCH ×4 (06:34→18:27)
[2018-09-14 07:00] VITALS: BP 122/76
--- NOTE | 2018-09-14 07:27 | PDOC ---
PULMONARY PROGRESS NOTES Subjective sob cough better, no cp NOW NPO, has dysphagia Vitals Vital Signs Date Time Temp Pulse Resp B/P (MAP) Pulse Ox O2 Delivery O2 Flow Rate FiO2 09/14/18 06:34 Room Air 09/14/18 06:03 77 126/76 09/14/18 03:09 98.0 18 97 2.0 98.0 ROS: No Nausea, No Chest Pain, No Abdominal Pain, No Increase Cough General: Alert HEENT: Other (nc at perrl) Lungs: Crackles Cardiovascular: S1, S2 Abdomen: Soft, Non-tender Neuro Exam: Alert Extremities: No Edema Skin: Warm Labs Laboratory Tests Test 09/12/18 07:36 09/12/18 17:20 09/12/18 18:00 09/12/18 22:00 Glucose (Fingerstick) 123 mg/dL (70-99) 122 mg/dL (70-99) White Blood Count 21.8 x10^3/uL (4.0-11.0) Red Blood Count 4.32 x10^6/uL (4.30-5.70) Hemoglobin 12.9 g/dL (13.0-17.5) Hematocrit 40.8 % (39.0-53.0) Mean Corpuscular Volume 95 fL (79-100) Mean Corpuscular Hemoglobin 30 pg (25-35) Mean Corpuscular Hemoglobin Concent 32 g/dL (31-37) Red Cell Distribution Width 16.0 % (11.5-14.5) Platelet Count 378 x10^3/uL (140-400) Neutrophils (%) (Auto) 94 % (31-73) Lymphocytes (%) (Auto) 3 % (24-48) Monocytes (%) (Auto) 2 % (0-9) Eosinophils (%) (Auto) 0 % (0-3) Basophils (%) (Auto) 1 % (0-3) Neutrophils # (Auto) 20.6 x10^3uL (1.8-7.7) Lymphocytes # (Auto) 0.7 x10^3/uL (1.0-4.8) Monocytes # (Auto) 0.4 x10^3/uL (0.0-1.1) Eosinophils # (Auto) 0.0 x10^3/uL (0.0-0.7) Basophils # (Auto) 0.1 x10^3/uL (0.0-0.2) Segmented Neutrophils % 85 % (35-66) Band Neutrophils % 10 % (0-9) Lymphocytes % 2 % (24-48) Monocytes % 3 % (0-10) Platelet Estimate Adequate (ADEQUATE) Large Platelets Mod Lactic Acid Level 3.5 mmol/L (0.4-2.0) 2.5 mmol/L (0.4-2.0) Test 09/13/18 02:00 09/13/18 14:00 09/13/18 16:20 09/14/18 01:11 White Blood Count 30.0 x10^3/uL (4.0-11.0) Red Blood Count 3.99 x10^6/uL (4.30-5.70) Hemoglobin 11.7 g/dL (13.0-17.5) Hematocrit 38.0 % (39.0-53.0) Mean Corpuscular Volume 95 fL (79-100) Mean Corpuscular Hemoglobin 29 pg (25-35) Mean Corpuscular Hemoglobin Concent 31 g/dL (31-37) Red Cell Distribution Width 16.1 % (11.5-14.5) Platelet Count 306 x10^3/uL (140-400) Neutrophils (%) (Auto) 92 % (31-73) Lymphocytes (%) (Auto) 4 % (24-48) Monocytes (%) (Auto) 4 % (0-9) Eosinophils (%) (Auto) 0 % (0-3) Basophils (%) (Auto) 1 % (0-3) Neutrophils # (Auto) 27.4 x10^3uL (1.8-7.7) Lymphocytes # (Auto) 1.1 x10^3/uL (1.0-4.8) Monocytes # (Auto) 1.2 x10^3/uL (0.0-1.1) Eosinophils # (Auto) 0.0 x10^3/uL (0.0-0.7) Basophils # (Auto) 0.2 x10^3/uL (0.0-0.2) Sodium Level 144 mmol/L (136-145) Potassium Level 3.5 mmol/L (3.5-5.1) Chloride Level 109 mmol/L (98-107) Carbon Dioxide Level 22 mmol/L (21-32) Anion Gap 13 (6-14) Blood Urea Nitrogen 22 mg/dL (8-26) Creatinine 1.3 mg/dL (0.7-1.3) Estimated GFR (Cockcroft-Gault) 63.3 BUN/Creatinine Ratio 17 (6-20) Glucose Level 128 mg/dL (70-99) Lactic Acid Level 2.0 mmol/L (0.4-2.0) Calcium Level 8.9 mg/dL (8.5-10.1) Total Bilirubin 2.6 mg/dL (0.2-1.0) Aspartate Amino Transf (AST/SGOT) 28 U/L (15-37) Alanine Aminotransferase (ALT/SGPT) 11 U/L (16-63) Alkaline Phosphatase 65 U/L (46-116) Total Protein 6.0 g/dL (6.4-8.2) Albumin 2.5 g/dL (3.4-5.0) Albumin/Globulin Ratio 0.7 (1.0-1.7) Procalcitonin 14.90 ng/mL (0.00-0.10) Urine Collection Type Unknown Urine Color Gege Urine Clarity Cloudy Urine pH 5.0 Urine Specific [place] 1.025 Urine Protein 30 mg/dL (NEG-TRACE) Urine Glucose (UA) Negative mg/dL (NEG) Urine Ketones (Stick) Negative mg/dL (NEG) Urine Blood Negative (NEG) Urine Nitrite Negative (NEG) Urine Bilirubin Negative (NEG) Urine Urobilinogen Dipstick 1.0 mg/dL (0.2 mg/dL) Urine Leukocyte Esterase Trace (NEG) Urine RBC 0 /HPF (0-2) Urine WBC Rare /HPF (0-4) Urine Squamous Epithelial Cells Mod /LPF Urine Bacteria 0 /HPF (0-FEW) Urine Yeast Present /HPF Prothrombin Time 27.0 SEC (11.7-14.0) Prothromb Time International Ratio 2.5 (0.8-1.1) Magnesium Level 2.0 mg/dL (1.8-2.4) Vancomycin Level Trough 5.4 mcg/mL (10.0-20.0) Vancomycin Last Dose Date 09/12/18 Vancomycin Last Dose Time 2300 Glucose (Fingerstick) 118 mg/dL (70-99) Test 09/14/18 04:00 White Blood Count 12.0 x10^3/uL (4.0-11.0) Red Blood Count 3.84 x10^6/uL (4.30-5.70) Hemoglobin 11.5 g/dL (13.0-17.5) Hematocrit 36.0 % (39.0-53.0) Mean Corpuscular Volume 94 fL (79-100) Mean Corpuscular Hemoglobin 30 pg (25-35) Mean Corpuscular Hemoglobin Concent 32 g/dL (31-37) Red Cell Distribution Width 15.9 % (11.5-14.5) Platelet Count 309 x10^3/uL (140-400) Neutrophils (%) (Auto) 86 % (31-73) Lymphocytes (%) (Auto) 8 % (24-48) Monocytes (%) (Auto) 5 % (0-9) Eosinophils (%) (Auto) 0 % (0-3) Basophils (%) (Auto) 1 % (0-3) Neutrophils # (Auto) 10.3 x10^3uL (1.8-7.7) Lymphocytes # (Auto) 0.9 x10^3/uL (1.0-4.8) Monocytes # (Auto) 0.6 x10^3/uL (0.0-1.1) Eosinophils # (Auto) 0.0 x10^3/uL (0.0-0.7) Basophils # (Auto) 0.1 x10^3/uL (0.0-0.2) Sodium Level 143 mmol/L (136-145) Potassium Level 3.0 mmol/L (3.5-5.1) Chloride Level 108 mmol/L (98-107) Carbon Dioxide Level 26 mmol/L (21-32) Anion Gap 9 (6-14) Blood Urea Nitrogen 21 mg/dL (8-26) Creatinine 1.0 mg/dL (0.7-1.3) Estimated GFR (Cockcroft-Gault) 85.7 Glucose Level 108 mg/dL (70-99) Calcium Level 9.0 mg/dL (8.5-10.1) Total Bilirubin 1.9 mg/dL (0.2-1.0) Direct Bilirubin 0.8 mg/dL (0.0-0.2) Aspartate Amino Transf (AST/SGOT) 26 U/L (15-37) Alanine Aminotransferase (ALT/SGPT) 13 U/L (16-63) Alkaline Phosphatase 63 U/L (46-116) Total Protein 5.8 g/dL (6.4-8.2) Albumin 2.3 g/dL (3.4-5.0) Laboratory Tests Test 09/13/18 14:00 09/13/18 16:20 09/14/18 01:11 09/14/18 04:00 Urine Collection Type Unknown Urine Color Gege Urine Clarity Cloudy Urine pH 5.0 Urine Specific [place] 1.025 Urine Protein 30 mg/dL (NEG-TRACE) Urine Glucose (UA) Negative mg/dL (NEG) Urine Ketones (Stick) Negative mg/dL (NEG) Urine Blood Negative (NEG) Urine Nitrite Negative (NEG) Urine Bilirubin Negative (NEG) Urine Urobilinogen Dipstick 1.0 mg/dL (0.2 mg/dL) Urine Leukocyte Esterase Trace (NEG) Urine RBC 0 /HPF (0-2) Urine WBC Rare /HPF (0-4) Urine Squamous Epithelial Cells Mod /LPF Urine Bacteria 0 /HPF (0-FEW) Urine Yeast Present /HPF Prothrombin Time 27.0 SEC (11.7-14.0) Prothromb Time International Ratio 2.5 (0.8-1.1) Magnesium Level 2.0 mg/dL (1.8-2.4) Vancomycin Level Trough 5.4 mcg/mL (10.0-20.0) Vancomycin Last Dose Date 09/12/18 Vancomycin Last Dose Time 2300 Glucose (Fingerstick) 118 mg/dL (70-99) White Blood Count 12.0 x10^3/uL (4.0-11.0) Red Blood Count 3.84 x10^6/uL (4.30-5.70) Hemoglobin 11.5 g/dL (13.0-17.5) Hematocrit 36.0 % (39.0-53.0) Mean Corpuscular Volume 94 fL (79-100) Mean Corpuscular Hemoglobin 30 pg (25-35) Mean Corpuscular Hemoglobin Concent 32 g/dL (31-37) Red Cell Distribution Width 15.9 % (11.5-14.5) Platelet Count 309 x10^3/uL (140-400) Neutrophils (%) (Auto) 86 % (31-73) Lymphocytes (%) (Auto) 8 % (24-48) Monocytes (%) (Auto) 5 % (0-9) Eosinophils (%) (Auto) 0 % (0-3) Basophils (%) (Auto) 1 % (0-3) Neutrophils # (Auto) 10.3 x10^3uL (1.8-7.7) Lymphocytes # (Auto) 0.9 x10^3/uL (1.0-4.8) Monocytes # (Auto) 0.6 x10^3/uL (0.0-1.1) Eosinophils # (Auto) 0.0 x10^3/uL (0.0-0.7) Basophils # (Auto) 0.1 x10^3/uL (0.0-0.2) Sodium Level 143 mmol/L (136-145) Potassium Level 3.0 mmol/L (3.5-5.1) Chloride Level 108 mmol/L (98-107) Carbon Dioxide Level 26 mmol/L (21-32) Anion Gap 9 (6-14) Blood Urea Nitrogen 21 mg/dL (8-26) Creatinine 1.0 mg/dL (0.7-1.3) Estimated GFR (Cockcroft-Gault) 85.7 Glucose Level 108 mg/dL (70-99) Calcium Level 9.0 mg/dL (8.5-10.1) Total Bilirubin 1.9 mg/dL (0.2-1.0) Direct Bilirubin 0.8 mg/dL (0.0-0.2) Aspartate Amino Transf (AST/SGOT) 26 U/L (15-37) Alanine Aminotransferase (ALT/SGPT) 13 U/L (16-63) Alkaline Phosphatase 63 U/L (46-116) Total Protein 5.8 g/dL (6.4-8.2) Albumin 2.3 g/dL (3.4-5.0) Medications Active Scripts Medications Dose Route/Sig Max Daily Dose Days Date Category Dose Instructions Colace (Docusate Sodium) 100 Mg Capsule 1 Cap PO TID 09/09/18 Reported Metamucil Powder (Psyllium Seed (with Sugar)) 575 Gm Powder 575 Gm PO DAILY 09/09/18 Reported [place] 5-325 Tablet (Acetaminophen/Hydrocodone Bitart) 1 Each Tablet 7.5 Mg PO PRN Q6HRS PRN 09/09/18 Reported LAST DOSE GIVEN: Atorvastatin Calcium 40 Mg Tablet 1 Tab PO DAILY 08/12/18 Reported Metoprolol Tartrate 100 Mg Tablet 100 Mg PO DAILY 11/08/17 Reported Tamsulosin Hcl 0.4 Mg Cap.er.24h 0.4 Mg PO HS DAILY 11/08/17 Reported Vitamin C (Ascorbic Acid) 500 Mg Tablet 250 Mg PO DAILY 05/08/14 Reported Warfarin Sodium 5 Mg Tablet 1.5 Tab PO QWE 04/18/14 Reported Warfarin Sodium 5 Mg Tablet 1 Tab PO DAILY EXCEPT WED. 04/18/14 Reported Aspirin 81 Mg Tab.chew 81 Mg PO BID 08/22/13 Reported Lanoxin (Digoxin) 125 Mcg Tablet 125 Mcg PO DAILY 08/22/[address] reviewed 1. Mixed interstitial and airspace infiltrates in both lungs, predominantly dependent. There is likely a component of pulmonary edema, as well as acute infiltrate or pneumonia. 2. 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 Appears similar to that report prior study. 3. Mild splenomegaly. 4. Gynecomastia. Impression . IMPRESSION: 1. Abnormal x-ray. 2. Respiratory insufficiency. 3. possible sepsis. 4. Coronary artery disease. 5. Secondary pulmonary hypertension. 6. Obstructive sleep apnea. 7. Acute on chronic diastolic heart failure. 8. Permanent atrial fibrillation along with sick sinus syndrome, status post pacemaker implantation. 9. dysphagia. abnl opv Plan . FOLLOW SPEECH INPUT, aspiration precaution, npo, elevate hob MAY NEED DOBBHOFF OR PEG 1. Continue current empiric antibiotics. 2. CT reviewed 3. Follow clinical course and make further adjustments on antibiotics and medical regimen. 4. keep I<O 5. Follow Cardiology input. discussed w rn, pt IFEANYI JACQUES MD Sep 14, 2018 07:27
[2018-09-14] MEDS: LACTOBACILLUS RHAMNOSUS GG 1 CAPSULE. PO SCH ×2 (07:55→21:00)
[2018-09-14] MEDS: ASPIRIN CHEWABLE 81 MG TABLET. PO SCH ×2 (07:55→21:00)
--- NOTE | 2018-09-14 08:10 | PDOC ---
PROGRESS NOTES Subjective Subjective Feeling better today. Denied any chest pain. Dyspnea improved. Objective Objective Vital Signs Date Time Temp Pulse Resp B/P (MAP) Pulse Ox O2 Delivery O2 Flow Rate FiO2 09/14/18 07:00 98.2 95 20 122/76 (91) 97 Nasal Cannula 2.0 98.2 Intake and Output 09/14/18 07:00 Intake Total 350 ml Balance 350 ml Intake Oral 0 ml IV Total 350 ml # Voids 5 # Bowel Movements 1 Physical Exam Heart: Regular rate, No murmurs Extremities: No clubbing General: Alert, Oriented X3, Cooperative, No acute distress MUSCULOSKELETAL: Osteoarthritic changes both hands Skin: No rashes Assessment Assessment 1. Fever/Leukocytosis with possible aspiration PNA and UTI. Treatment per ID team. 2. Acute on chronic diastolic CHF; recent echo with preserved LV systolic function as noted above. Improved with diuresis. 3. CAD; catheterization 08/2018 with [facility], which is unchanged from previous cath in 2013. clinically stable and chest pain-free 4. Permanent AFIB; rate controlled. on warfarin for stroke prevention 5. 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 Trace) - recent device check showed normal function 6. Hypertension; controlled 7. Hyperlipidemia; statin 8. Diabetes, II: Per IM 9. S/P incarcerated left inguinal hernia repair 10. Urinary retention: defer to PCP Plan Plan of Care Problems Medical Problems: (1) Pneumonia Status: Acute (2) Sepsis Status: Acute Comment Review of Relevant I have reviewed the following items tiffany (where applicable) has been applied. Labs Laboratory Tests Test 09/13/18 14:00 09/13/18 16:20 09/14/18 01:11 09/14/18 04:00 Urine Collection Type Unknown Urine Color Gege Urine Clarity Cloudy Urine pH 5.0 Urine Specific [place] 1.025 Urine Protein 30 mg/dL (NEG-TRACE) Urine Glucose (UA) Negative mg/dL (NEG) Urine Ketones (Stick) Negative mg/dL (NEG) Urine Blood Negative (NEG) Urine Nitrite Negative (NEG) Urine Bilirubin Negative (NEG) Urine Urobilinogen Dipstick 1.0 mg/dL (0.2 mg/dL) Urine Leukocyte Esterase Trace (NEG) Urine RBC 0 /HPF (0-2) Urine WBC Rare /HPF (0-4) Urine Squamous Epithelial Cells Mod /LPF Urine Bacteria 0 /HPF (0-FEW) Urine Yeast Present /HPF Prothrombin Time 27.0 SEC (11.7-14.0) Prothromb Time International Ratio 2.5 (0.8-1.1) Magnesium Level 2.0 mg/dL (1.8-2.4) Vancomycin Level Trough 5.4 mcg/mL (10.0-20.0) Vancomycin Last Dose Date 09/12/18 Vancomycin Last Dose Time 2300 Glucose (Fingerstick) 118 mg/dL (70-99) White Blood Count 12.0 x10^3/uL (4.0-11.0) Red Blood Count 3.84 x10^6/uL (4.30-5.70) Hemoglobin 11.5 g/dL (13.0-17.5) Hematocrit 36.0 % (39.0-53.0) Mean Corpuscular Volume 94 fL (79-100) Mean Corpuscular Hemoglobin 30 pg (25-35) Mean Corpuscular Hemoglobin Concent 32 g/dL (31-37) Red Cell Distribution Width 15.9 % (11.5-14.5) Platelet Count 309 x10^3/uL (140-400) Neutrophils (%) (Auto) 86 % (31-73) Lymphocytes (%) (Auto) 8 % (24-48) Monocytes (%) (Auto) 5 % (0-9) Eosinophils (%) (Auto) 0 % (0-3) Basophils (%) (Auto) 1 % (0-3) Neutrophils # (Auto) 10.3 x10^3uL (1.8-7.7) Lymphocytes # (Auto) 0.9 x10^3/uL (1.0-4.8) Monocytes # (Auto) 0.6 x10^3/uL (0.0-1.1) Eosinophils # (Auto) 0.0 x10^3/uL (0.0-0.7) Basophils # (Auto) 0.1 x10^3/uL (0.0-0.2) Sodium Level 143 mmol/L (136-145) Potassium Level 3.0 mmol/L (3.5-5.1) Chloride Level 108 mmol/L (98-107) Carbon Dioxide Level 26 mmol/L (21-32) Anion Gap 9 (6-14) Blood Urea Nitrogen 21 mg/dL (8-26) Creatinine 1.0 mg/dL (0.7-1.3) Estimated GFR (Cockcroft-Gault) 85.7 Glucose Level 108 mg/dL (70-99) Calcium Level 9.0 mg/dL (8.5-10.1) Total Bilirubin 1.9 mg/dL (0.2-1.0) Direct Bilirubin 0.8 mg/dL (0.0-0.2) Aspartate Amino Transf (AST/SGOT) 26 U/L (15-37) Alanine Aminotransferase (ALT/SGPT) 13 U/L (16-63) Alkaline Phosphatase 63 U/L (46-116) Total Protein 5.8 g/dL (6.4-8.2) Albumin 2.3 g/dL (3.4-5.0) Microbiology 09/12/18 Blood Culture - Preliminary, Resulted NO GROWTH AFTER 2 DAYS Medications Current Medications Amino Acids/ Glycerin/ Electrolytes 1,000 ml @ 80 mls/hr [id number] IV Last administered on 09/13/18at 17:43; Start 09/13/18 at 14:00 Barium Sulfate (Varibar Thin Liquid Apple) 148 gm 1X ONCE PO ; Start 09/13/18 at 14:15; Stop 09/13/18 at 14:21; Status DC Fluocinonide (Lidex) 1 mihaela BID TP Last administered on 09/13/18at 16:10; Start 09/13/18 at 15:00 Furosemide (Lasix) 40 mg 1X ONCE IVP Last administered on 09/13/18at 16:10; Start 09/13/18 at 14:30; Stop 09/13/18 at 14:31; Status DC Linezolid (Zyvox) 600 mg BID PO ; Start 09/13/18 at 10:15; Stop 09/13/18 at 10:17; Status DC Linezolid/Dextrose 300 ml @ 300 mls/hr Q12HR IV Last administered on 09/13/18at 20:54; Start 09/13/18 at 10:30 Meropenem 500 mg/ Sodium Chloride 50 ml @ 100 mls/hr Q6HRS IV Last administered on 09/14/18at 06:03; Start 09/13/18 at 12:00 Metoprolol Tartrate (Lopressor Vial) 5 mg Q6HRS IVP Last administered on 09/14/18at 06:03; Start 09/13/18 at 13:00 Micafungin Sodium 100 mg/Dextrose 100 ml @ 100 mls/hr Q24H IV Last adminis tered on 09/13/18at 10:50; Start 09/13/18 at 12:00 Sodium Chloride 1,000 ml @ 60 mls/hr 1X ONCE IV Last administered on 09/13/18at 13:45; Start 09/13/18 at 13:00; Stop 09/14/18 at 05:39; Status DC Tamsulosin HCl (Flomax) 0.4 mg DAILY PO ; Start 09/13/18 at 15:00 Vancomycin HCl (Vancomycin Trough Level) 1 each 1X ONCE MC ; Start 09/13/18 at 16:30; Stop 09/13/18 at 16:30; Status DC Warfarin Sodium (Coumadin) 7.5 mg We PO ; Start 09/18/18 at 16:00 Vitals/I & O Vital Sign - Last 24 Hours 09/13/18 09/13/18 09/13/18 09/13/18 11:24 11:32 13:45 14:43 Temp 98.3 97.9 98.3 97.9 Pulse 77 77 73 Resp 18 18 B/P (MAP) 111/59 (76) 111/59 176/61 (99) Pulse Ox 95 95 96 O2 Delivery Nasal Cannula Room Air Nasal Cannula O2 Flow Rate 2.0 2.0 09/13/18 09/13/18 09/13/18 09/13/18 15:53 18:12 18:53 19:54 Temp 98.2 98.2 Pulse 73 98 Resp 18 B/P (MAP) 176/61 116/69 (85) Pulse Ox 90 O2 Delivery Room Air Nasal Cannula Room Air O2 Flow Rate 2.0 09/13/18 09/13/18 09/14/18 09/14/18 20:00 23:00 00:26 03:09 Temp 98.0 98.0 98.0 98.0 Pulse 82 82 77 Resp 16 18 B/P (MAP) 134/64 (87) 134/64 126/76 (93) Pulse Ox 95 97 O2 Delivery Nasal Cannula Nasal Cannula Nasal Cannula O2 Flow Rate 2.0 2.0 2.0 09/14/18 09/14/18 09/14/18 06:03 06:34 07:00 Temp 98.2 98.2 Pulse 77 95 Resp 20 B/P (MAP) 126/76 122/76 (91) Pulse Ox 97 O2 Delivery Room Air Nasal Cannula O2 Flow Rate 2.0 Intake and Output 09/13/18 09/13/18 09/14/18 15:00 23:00 07:00 Intake Total 0 ml 300 ml 50 ml Balance 0 ml 300 ml 50 ml SHAWN PARKER MD Sep 14, 2018 08:10
[2018-09-14] MEDS: TAMSULOSIN 0.4 MG CAP.ER.24H. PO SCH (08:32)
[2018-09-14] MEDS: DIGOXIN 125 MCG TABLET. PO SCH (08:33)
[2018-09-14] MEDS: FLUOCINONIDE 0.05% TOPICAL CREAM 15 GM TUBE. TP SCH ×2 (09:01→21:21)
[2018-09-14 10:57] VITALS: BP 114/63
--- NOTE | 2018-09-14 11:21 | PDOC ---
Infectious Disease Note Subjective Subjective Feeling good Hungry but NPO, failed swallow study Productive cough, denies CP/SOA No fevers/chills last 24 hours Denies N/V/D ROS ROS per HPI Vital Sign Vital Signs Vital Signs Date Time Temp Pulse Resp B/P (MAP) Pulse Ox O2 Delivery O2 Flow Rate FiO2 09/14/18 10:57 98.2 97 20 114/63 (80) 99 Nasal Cannula 2.0 98.2 Physical Exam PHYSICAL EXAM CONSTITUTIONAL: Sitting in the chair, visiting with his sons, alert, smiling HEENT: Pupils equal and reactive. Normal conjunctivae. Oral cavity, pharynx is clear with some questionable dentition. NECK: Supple, no JVD. LUNGS: Mild crackles. HEART: S1, S2. Pacemaker without signs of complications. ABDOMEN: Positive bowel sounds, soft, nontender, left lower quadrant incision is well approximated, no drainage, erythema or warmth. EXTREMITIES: Without clubbing, cyanosis nor gross edema. SKIN: Warm to touch without signs of rash. NEUROLOGIC: He answers questions appropriately. PIV Labs Lab Laboratory Tests Test 09/13/18 14:00 09/13/18 16:20 09/14/18 01:11 09/14/18 04:00 Urine Collection Type Unknown Urine Color Gege Urine Clarity Cloudy Urine pH 5.0 Urine Specific [place] 1.025 Urine Protein 30 mg/dL (NEG-TRACE) Urine Glucose (UA) Negative mg/dL (NEG) Urine Ketones (Stick) Negative mg/dL (NEG) Urine Blood Negative (NEG) Urine Nitrite Negative (NEG) Urine Bilirubin Negative (NEG) Urine Urobilinogen Dipstick 1.0 mg/dL (0.2 mg/dL) Urine Leukocyte Esterase Trace (NEG) Urine RBC 0 /HPF (0-2) Urine WBC Rare /HPF (0-4) Urine Squamous Epithelial Cells Mod /LPF Urine Bacteria 0 /HPF (0-FEW) Urine Yeast Present /HPF Prothrombin Time 27.0 SEC (11.7-14.0) Prothromb Time International Ratio 2.5 (0.8-1.1) Magnesium Level 2.0 mg/dL (1.8-2.4) Vancomycin Level Trough 5.4 mcg/mL (10.0-20.0) Vancomycin Last Dose Date 09/12/18 Vancomycin Last Dose Time 2300 Glucose (Fingerstick) 118 mg/dL (70-99) White Blood Count 12.0 x10^3/uL (4.0-11.0) Red Blood Count 3.84 x10^6/uL (4.30-5.70) Hemoglobin 11.5 g/dL (13.0-17.5) Hematocrit 36.0 % (39.0-53.0) Mean Corpuscular Volume 94 fL (79-100) Mean Corpuscular Hemoglobin 30 pg (25-35) Mean Corpuscular Hemoglobin Concent 32 g/dL (31-37) Red Cell Distribution Width 15.9 % (11.5-14.5) Platelet Count 309 x10^3/uL (140-400) Neutrophils (%) (Auto) 86 % (31-73) Lymphocytes (%) (Auto) 8 % (24-48) Monocytes (%) (Auto) 5 % (0-9) Eosinophils (%) (Auto) 0 % (0-3) Basophils (%) (Auto) 1 % (0-3) Neutrophils # (Auto) 10.3 x10^3uL (1.8-7.7) Lymphocytes # (Auto) 0.9 x10^3/uL (1.0-4.8) Monocytes # (Auto) 0.6 x10^3/uL (0.0-1.1) Eosinophils # (Auto) 0.0 x10^3/uL (0.0-0.7) Basophils # (Auto) 0.1 x10^3/uL (0.0-0.2) Sodium Level 143 mmol/L (136-145) Potassium Level 3.0 mmol/L (3.5-5.1) Chloride Level 108 mmol/L (98-107) Carbon Dioxide Level 26 mmol/L (21-32) Anion Gap 9 (6-14) Blood Urea Nitrogen 21 mg/dL (8-26) Creatinine 1.0 mg/dL (0.7-1.3) Estimated GFR (Cockcroft-Gault) 85.7 Glucose Level 108 mg/dL (70-99) Calcium Level 9.0 mg/dL (8.5-10.1) Total Bilirubin 1.9 mg/dL (0.2-1.0) Direct Bilirubin 0.8 mg/dL (0.0-0.2) Aspartate Amino Transf (AST/SGOT) 26 U/L (15-37) Alanine Aminotransferase (ALT/SGPT) 13 U/L (16-63) Alkaline Phosphatase 63 U/L (46-116) Total Protein 5.8 g/dL (6.4-8.2) Albumin 2.3 g/dL (3.4-5.0) Micro Microbiology 09/12/18 Blood Culture - Preliminary, Resulted NO GROWTH AFTER 2 DAYS Objective Assessment Fever, better Bandemia Leukocytosis, ? PNA / Aspiration - vomited here. ? UTI - abd is benign aside from some ? bladder distension. Possible UTI - c/o urinary complications prior to admit; yeast present S/p repair of incarcerated left inguinal hernia, had actually herniations on both sides of the cord structures at the internal inguinal ring 09/09- Wound looks very clean Acute on chronic diastolic HF; recent echo with preserved LV systolic function as noted above. CAD; catheterization 08/2018 with [facility], which is unchanged from previous cath in 2013. Stable CP free. Permanent AFIB; rate controlled. on warfarin for stroke prevention. INR 1.9 PPM Diabetes, II Elevated TB - ? sec to Afib possible congestion Dysphagia Plan Plan of Care Zyvox (09/13) Merrem (changed 09/13 d/t increase WBC) and micafungin (09/13) F/u labs and cults Maintain aspiration precautions D/w family Attending Co-Sign The patient was seen and interviewed as well as examined at the bedside. The chart was reviewed. The case was discussed. Agree with the plan of care. AR PANIAGUA APRN Sep 14, 2018 11:21 AUSTIN TIJERINA MD Sep 14, 2018 13:19
[2018-09-14] MEDS ORDERED: SALIVA STIMULANT AGENT 44ML SPRAY BOTTLE. PO PRN (12:15)
--- NOTE | 2018-09-14 13:14 | NUR ---
PICC Pre-Insertion Note- Allergies and reactions NKDA INR 2.5 BUN 21 Cr 1.0 Platelets 309 Blood culture done yes blood culture results no growth x 2 days Order Verified yes Consent signed yes Previous PICC placement no Past Medical/Surgical history and current diagnosis reviewed yes Patient Medical /Surgical History Related to PICC line placement Arrhythmias Diabetes Infectious Disease consult Pacemaker Special considerations for PICC line placement Anticoagulation therapy PICC placement indication shelter antibiotic usage, Multiple/ Frequent blood draws, Poor peripheral intravenous access Total Parenteral Nutrition (TPN) name of PICC Nurse Shayy Pete RN Addendum: 09/14/18 at 1405 by ROLA PETE RN Amended: Links added.
--- NOTE | 2018-09-14 13:35 | PDOC ---
PROGRESS NOTES Chief Complaint Chief Complaint sepsis, UTI aspiration PNA Acute on chronic diastolic CHF; recent echo with preserved LV systolic function as noted above. Hx CAD; htn, lipids, DM2, chronic diastolic CHF, with afib Permanent AFIB; rate controlled. on warfarin for stroke prevention dysphagia urinary retention, phimosis weakness, acquired FULL CODE History of Present Illness History of Present Illness Uro consulted last night for phimosis, may likely need surg, will try steroid cream needs PICC line, IV abx, failed swallow study, on PPN, will change to TPN, cont PT and OT as able Vitals Vitals Vital Signs Date Time Temp Pulse Resp B/P (MAP) Pulse Ox O2 Delivery O2 Flow Rate FiO2 09/14/18 11:35 97 Room Air 09/14/18 10:57 98.2 97 20 114/63 (80) 2.0 98.2 Physical Exam Physical Exam CONSTITUTIONAL: Sitting in the chair, visiting with his sons, alert, smiling HEENT: Pupils equal and reactive. Normal conjunctivae. Oral cavity, pharynx is clear with some questionable dentition. NECK: Supple, no JVD. LUNGS: Mild crackles. HEART: S1, S2. Pacemaker without signs of complications. ABDOMEN: Positive bowel sounds, soft, nontender, left lower quadrant incision is well approximated, no drainage, erythema or warmth. EXTREMITIES: Without clubbing, cyanosis nor gross edema. SKIN: Warm to touch without signs of rash. NEUROLOGIC: He answers questions appropriately. PIV General: Alert, Oriented X3, Cooperative, No acute distress Heart: Regular rate, No murmurs Lungs: Crackles Extremities: No clubbing Skin: No rashes Labs LABS Laboratory Tests Test 09/13/18 14:00 09/13/18 16:20 09/14/18 01:11 09/14/18 04:00 Urine Collection Type Unknown Urine Color Gege Urine Clarity Cloudy Urine pH 5.0 Urine Specific [place] 1.025 Urine Protein 30 mg/dL (NEG-TRACE) Urine Glucose (UA) Negative mg/dL (NEG) Urine Ketones (Stick) Negative mg/dL (NEG) Urine Blood Negative (NEG) Urine Nitrite Negative (NEG) Urine Bilirubin Negative (NEG) Urine Urobilinogen Dipstick 1.0 mg/dL (0.2 mg/dL) Urine Leukocyte Esterase Trace (NEG) Urine RBC 0 /HPF (0-2) Urine WBC Rare /HPF (0-4) Urine Squamous Epithelial Cells Mod /LPF Urine Bacteria 0 /HPF (0-FEW) Urine Yeast Present /HPF Prothrombin Time 27.0 SEC (11.7-14.0) Prothromb Time International Ratio 2.5 (0.8-1.1) Magnesium Level 2.0 mg/dL (1.8-2.4) Vancomycin Level Trough 5.4 mcg/mL (10.0-20.0) Vancomycin Last Dose Date 09/12/18 Vancomycin Last Dose Time 2300 Glucose (Fingerstick) 118 mg/dL (70-99) White Blood Count 12.0 x10^3/uL (4.0-11.0) Red Blood Count 3.84 x10^6/uL (4.30-5.70) Hemoglobin 11.5 g/dL (13.0-17.5) Hematocrit 36.0 % (39.0-53.0) Mean Corpuscular Volume 94 fL (79-100) Mean Corpuscular Hemoglobin 30 pg (25-35) Mean Corpuscular Hemoglobin Concent 32 g/dL (31-37) Red Cell Distribution Width 15.9 % (11.5-14.5) Platelet Count 309 x10^3/uL (140-400) Neutrophils (%) (Auto) 86 % (31-73) Lymphocytes (%) (Auto) 8 % (24-48) Monocytes (%) (Auto) 5 % (0-9) Eosinophils (%) (Auto) 0 % (0-3) Basophils (%) (Auto) 1 % (0-3) Neutrophils # (Auto) 10.3 x10^3uL (1.8-7.7) Lymphocytes # (Auto) 0.9 x10^3/uL (1.0-4.8) Monocytes # (Auto) 0.6 x10^3/uL (0.0-1.1) Eosinophils # (Auto) 0.0 x10^3/uL (0.0-0.7) Basophils # (Auto) 0.1 x10^3/uL (0.0-0.2) Sodium Level 143 mmol/L (136-145) Potassium Level 3.0 mmol/L (3.5-5.1) Chloride Level 108 mmol/L (98-107) Carbon Dioxide Level 26 mmol/L (21-32) Anion Gap 9 (6-14) Blood Urea Nitrogen 21 mg/dL (8-26) Creatinine 1.0 mg/dL (0.7-1.3) Estimated GFR (Cockcroft-Gault) 85.7 Glucose Level 108 mg/dL (70-99) Calcium Level 9.0 mg/dL (8.5-10.1) Phosphorus Level 2.4 mg/dL (2.6-4.7) Total Bilirubin 1.9 mg/dL (0.2-1.0) Direct Bilirubin 0.8 mg/dL (0.0-0.2) Aspartate Amino Transf (AST/SGOT) 26 U/L (15-37) Alanine Aminotransferase (ALT/SGPT) 13 U/L (16-63) Alkaline Phosphatase 63 U/L (46-116) Total Protein 5.8 g/dL (6.4-8.2) Albumin 2.3 g/dL (3.4-5.0) Test 09/14/18 12:05 Glucose (Fingerstick) 81 mg/dL (70-99) Review of Systems Review of Systems dry mouth, weak hungry Assessment and Plan Assessmemt and Plan Problems Medical Problems: (1) Pneumonia Status: Acute (2) Sepsis Status: Acute Comment Review of Relevant I have reviewed the following items tiffany (where applicable) has been applied. Labs Laboratory Tests Test 09/12/18 17:20 09/12/18 18:00 09/12/18 22:00 09/13/18 02:00 Glucose (Fingerstick) 122 mg/dL (70-99) White Blood Count 21.8 x10^3/uL (4.0-11.0) 30.0 x10^3/uL (4.0-11.0) Red Blood Count 4.32 x10^6/uL (4.30-5.70) 3.99 x10^6/uL (4.30-5.70) Hemoglobin 12.9 g/dL (13.0-17.5) 11.7 g/dL (13.0-17.5) Hematocrit 40.8 % (39.0-53.0) 38.0 % (39.0-53.0) Mean Corpuscular Volume 95 fL (79-100) 95 fL (79-100) Mean Corpuscular Hemoglobin 30 pg (25-35) 29 pg (25-35) Mean Corpuscular Hemoglobin Concent 32 g/dL (31-37) 31 g/dL (31-37) Red Cell Distribution Width 16.0 % (11.5-14.5) 16.1 % (11.5-14.5) Platelet Count 378 x10^3/uL (140-400) 306 x10^3/uL (140-400) Neutrophils (%) (Auto) 94 % (31-73) 92 % (31-73) Lymphocytes (%) (Auto) 3 % (24-48) 4 % (24-48) Monocytes (%) (Auto) 2 % (0-9) 4 % (0-9) Eosinophils (%) (Auto) 0 % (0-3) 0 % (0-3) Basophils (%) (Auto) 1 % (0-3) 1 % (0-3) Neutrophils # (Auto) 20.6 x10^3uL (1.8-7.7) 27.4 x10^3uL (1.8-7.7) Lymphocytes # (Auto) 0.7 x10^3/uL (1.0-4.8) 1.1 x10^3/uL (1.0-4.8) Monocytes # (Auto) 0.4 x10^3/uL (0.0-1.1) 1.2 x10^3/uL (0.0-1.1) Eosinophils # (Auto) 0.0 x10^3/uL (0.0-0.7) 0.0 x10^3/uL (0.0-0.7) Basophils # (Auto) 0.1 x10^3/uL (0.0-0.2) 0.2 x10^3/uL (0.0-0.2) Segmented Neutrophils % 85 % (35-66) Band Neutrophils % 10 % (0-9) Lymphocytes % 2 % (24-48) Monocytes % 3 % (0-10) Platelet Estimate Adequate (ADEQUATE) Large Platelets Mod Lactic Acid Level 3.5 mmol/L (0.4-2.0) 2.5 mmol/L (0.4-2.0) 2.0 mmol/L (0.4-2.0) Sodium Level 144 mmol/L (136-145) Potassium Level 3.5 mmol/L (3.5-5.1) Chloride Level 109 mmol/L (98-107) Carbon Dioxide Level 22 mmol/L (21-32) Anion Gap 13 (6-14) Blood Urea Nitrogen 22 mg/dL (8-26) Creatinine 1.3 mg/dL (0.7-1.3) Estimated GFR (Cockcroft-Gault) 63.3 BUN/Creatinine Ratio 17 (6-20) Glucose Level 128 mg/dL (70-99) Calcium Level 8.9 mg/dL (8.5-10.1) Total Bilirubin 2.6 mg/dL (0.2-1.0) Aspartate Amino Transf (AST/SGOT) 28 U/L (15-37) Alanine Aminotransferase (ALT/SGPT) 11 U/L (16-63) Alkaline Phosphatase 65 U/L (46-116) Total Protein 6.0 g/dL (6.4-8.2) Albumin 2.5 g/dL (3.4-5.0) Albumin/Globulin Ratio 0.7 (1.0-1.7) Procalcitonin 14.90 ng/mL (0.00-0.10) Test 09/13/18 14:00 09/13/18 16:20 09/14/18 01:11 09/14/18 04:00 Urine Collection Type Unknown Urine Color Gege Urine Clarity Cloudy Urine pH 5.0 Urine Specific [place] 1.025 Urine Protein 30 mg/dL (NEG-TRACE) Urine Glucose (UA) Negative mg/dL (NEG) Urine Ketones (Stick) Negative mg/dL (NEG) Urine Blood Negative (NEG) Urine Nitrite Negative (NEG) Urine Bilirubin Negative (NEG) Urine Urobilinogen Dipstick 1.0 mg/dL (0.2 mg/dL) Urine Leukocyte Esterase Trace (NEG) Urine RBC 0 /HPF (0-2) Urine WBC Rare /HPF (0-4) Urine Squamous Epithelial Cells Mod /LPF Urine Bacteria 0 /HPF (0-FEW) Urine Yeast Present /HPF Prothrombin Time 27.0 SEC (11.7-14.0) Prothromb Time International Ratio 2.5 (0.8-1.1) Magnesium Level 2.0 mg/dL (1.8-2.4) Vancomycin Level Trough 5.4 mcg/mL (10.0-20.0) Vancomycin Last Dose Date 09/12/18 Vancomycin Last Dose Time 2300 Glucose (Fingerstick) 118 mg/dL (70-99) White Blood Count 12.0 x10^3/uL (4.0-11.0) Red Blood Count 3.84 x10^6/uL (4.30-5.70) Hemoglobin 11.5 g/dL (13.0-17.5) Hematocrit 36.0 % (39.0-53.0) Mean Corpuscular Volume 94 fL (79-100) Mean Corpuscular Hemoglobin 30 pg (25-35) Mean Corpuscular Hemoglobin Concent 32 g/dL (31-37) Red Cell Distribution Width 15.9 % (11.5-14.5) Platelet Count 309 x10^3/uL (140-400) Neutrophils (%) (Auto) 86 % (31-73) Lymphocytes (%) (Auto) 8 % (24-48) Monocytes (%) (Auto) 5 % (0-9) Eosinophils (%) (Auto) 0 % (0-3) Basophils (%) (Auto) 1 % (0-3) Neutrophils # (Auto) 10.3 x10^3uL (1.8-7.7) Lymphocytes # (Auto) 0.9 x10^3/uL (1.0-4.8) Monocytes # (Auto) 0.6 x10^3/uL (0.0-1.1) Eosinophils # (Auto) 0.0 x10^3/uL (0.0-0.7) Basophils # (Auto) 0.1 x10^3/uL (0.0-0.2) Sodium Level 143 mmol/L (136-145) Potassium Level 3.0 mmol/L (3.5-5.1) Chloride Level 108 mmol/L (98-107) Carbon Dioxide Level 26 mmol/L (21-32) Anion Gap 9 (6-14) Blood Urea Nitrogen 21 mg/dL (8-26) Creatinine 1.0 mg/dL (0.7-1.3) Estimated GFR (Cockcroft-Gault) 85.7 Glucose Level 108 mg/dL (70-99) Calcium Level 9.0 mg/dL (8.5-10.1) Phosphorus Level 2.4 mg/dL (2.6-4.7) Total Bilirubin 1.9 mg/dL (0.2-1.0) Direct Bilirubin 0.8 mg/dL (0.0-0.2) Aspartate Amino Transf (AST/SGOT) 26 U/L (15-37) Alanine Aminotransferase (ALT/SGPT) 13 U/L (16-63) Alkaline Phosphatase 63 U/L (46-116) Total Protein 5.8 g/dL (6.4-8.2) Albumin 2.3 g/dL (3.4-5.0) Test 09/14/18 12:05 Glucose (Fingerstick) 81 mg/dL (70-99) Laboratory Tests Test 09/13/18 14:00 09/13/18 16:20 09/14/18 01:11 09/14/18 04:00 Urine Collection Type Unknown Urine Color Gege Urine Clarity Cloudy Urine pH 5.0 Urine Specific [place] 1.025 Urine Protein 30 mg/dL (NEG-TRACE) Urine Glucose (UA) Negative mg/dL (NEG) Urine Ketones (Stick) Negative mg/dL (NEG) Urine Blood Negative (NEG) Urine Nitrite Negative (NEG) Urine Bilirubin Negative (NEG) Urine Urobilinogen Dipstick 1.0 mg/dL (0.2 mg/dL) Urine Leukocyte Esterase Trace (NEG) Urine RBC 0 /HPF (0-2) Urine WBC Rare /HPF (0-4) Urine Squamous Epithelial Cells Mod /LPF Urine Bacteria 0 /HPF (0-FEW) Urine Yeast Present /HPF Prothrombin Time 27.0 SEC (11.7-14.0) Prothromb Time International Ratio 2.5 (0.8-1.1) Magnesium Level 2.0 mg/dL (1.8-2.4) Vancomycin Level Trough 5.4 mcg/mL (10.0-20.0) Vancomycin Last Dose Date 09/12/18 Vancomycin Last Dose Time 2300 Glucose (Fingerstick) 118 mg/dL (70-99) White Blood Count 12.0 x10^3/uL (4.0-11.0) Red Blood Count 3.84 x10^6/uL (4.30-5.70) Hemoglobin 11.5 g/dL (13.0-17.5) Hematocrit 36.0 % (39.0-53.0) Mean Corpuscular Volume 94 fL (79-100) Mean Corpuscular Hemoglobin 30 pg (25-35) Mean Corpuscular Hemoglobin Concent 32 g/dL (31-37) Red Cell Distribution Width 15.9 % (11.5-14.5) Platelet Count 309 x10^3/uL (140-400) Neutrophils (%) (Auto) 86 % (31-73) Lymphocytes (%) (Auto) 8 % (24-48) Monocytes (%) (Auto) 5 % (0-9) Eosinophils (%) (Auto) 0 % (0-3) Basophils (%) (Auto) 1 % (0-3) Neutrophils # (Auto) 10.3 x10^3uL (1.8-7.7) Lymphocytes # (Auto) 0.9 x10^3/uL (1.0-4.8) Monocytes # (Auto) 0.6 x10^3/uL (0.0-1.1) Eosinophils # (Auto) 0.0 x10^3/uL (0.0-0.7) Basophils # (Auto) 0.1 x10^3/uL (0.0-0.2) Sodium Level 143 mmol/L (136-145) Potassium Level 3.0 mmol/L (3.5-5.1) Chloride Level 108 mmol/L (98-107) Carbon Dioxide Level 26 mmol/L (21-32) Anion Gap 9 (6-14) Blood Urea Nitrogen 21 mg/dL (8-26) Creatinine 1.0 mg/dL (0.7-1.3) Estimated GFR (Cockcroft-Gault) 85.7 Glucose Level 108 mg/dL (70-99) Calcium Level 9.0 mg/dL (8.5-10.1) Phosphorus Level 2.4 mg/dL (2.6-4.7) Total Bilirubin 1.9 mg/dL (0.2-1.0) Direct Bilirubin 0.8 mg/dL (0.0-0.2) Aspartate Amino Transf (AST/SGOT) 26 U/L (15-37) Alanine Aminotransferase (ALT/SGPT) 13 U/L (16-63) Alkaline Phosphatase 63 U/L (46-116) Total Protein 5.8 g/dL (6.4-8.2) Albumin 2.3 g/dL (3.4-5.0) Test 09/14/18 12:05 Glucose (Fingerstick) 81 mg/dL (70-99) Microbiology 09/12/18 Blood Culture - Preliminary, Resulted NO GROWTH AFTER 2 DAYS Medications Current Medications Piperacillin Sod/ Tazobactam Sod 4.5 gm/Sodium Chloride 100 ml @ 200 mls/hr 1X ONCE IV Last administered on 09/12/18at 03:03; Start 09/12/18 at 02:30; Stop 09/12/18 at 02:59; Status DC Vancomycin HCl (Vanco Per Pharmacy) 1 each PRN DAILY PRN MC SEE COMMENTS Last administered on 09/12/18at 05:25; Start 09/12/18 at 02:15; Stop 09/12/18 at 13:38; Status DC Sodium Chloride 1,000 ml @ 1,000 mls/hr 1X ONCE IV Last administered on 09/12/18at 03:02; Start 09/12/18 at 02:30; Stop 09/12/18 at 03:29; Status DC Acetaminophen (Tylenol) 1,000 mg 1X ONCE PO Last administered on 09/12/18at 03:11; Start 09/12/18 at 02:30; Stop 09/12/18 at 02:31; Status DC Vancomycin HCl 2 gm/Sodium Chloride 500 ml @ 250 mls/hr 1X ONCE IV Last administered on 09/12/18at 04:59; Start 09/12/18 at 03:30; Stop 09/12/18 at 05:29; Status DC Sodium Chloride 2,340 ml @ 2,340 mls/hr Q1H IV Last administered on 09/12/18at 03:02; Start 09/12/18 at 02:47; Stop 09/12/18 at 03:06; Status DC Ondansetron HCl (Zofran) 4 mg PRN Q8HRS PRN IV NAUSEA/VOMITING 1ST CHOICE; Start 09/12/18 at 03:00; Stop 09/13/18 at 02:59; Status DC Albuterol/ Ipratropium (Duoneb) 3 ml RTQID NEB Last administered on 09/13/18at 15 :52; Start 09/12/18 at 08:00; Stop 09/13/18 at 07:59; Status DC Sodium Chloride 1,000 ml @ 1,000 mls/hr Q1H IV Last administered on 09/12/18at 04:06; Start 09/12/18 at 03:06; Stop 09/12/18 at 04:40; Status DC Acetaminophen/ Hydrocodone Bitart (Lortab 5/325) 7.5 tab PRN Q6HRS PRN PO MODERATE PAIN; Start 09/12/18 at 04:30; Stop 09/12/18 at 04:46; Status DC Lactobacillus Rhamnosus (Culturelle) 1 cap BID PO Last administered on 09/12/18at 08:22; Start 09/12/18 at 09:00 Acetaminophen/ Hydrocodone Bitart (Lortab 5/325) 1 tab PRN Q6HRS PRN PO MODERATE PAIN Last administered on 09/12/18at 04:54; Start 09/12/18 at 04:46 Vancomycin HCl 1.25 gm/Sodium Chloride 250 ml @ 167 mls/hr Q18H IV ; Start 09/12/18 at 23:00; Stop 09/12/18 at 23:00; Status DC Vancomycin HCl (Vancomycin Trough Level) 1 each 1X ONCE MC ; Start 09/13/18 at 16:30; Stop 09/13/18 at 16:30; Status DC Furosemide (Lasix) 40 mg 1X ONCE IVP Last administered on 09/12/18at 13:36; Start 09/12/18 at 12:45; Stop 09/12/18 at 12:46; Status DC Potassium Chloride (Klor-Con) 40 meq 1X ONCE PO Last administered on 09/12/18at 13:36; Start 09/12/18 at 12:45; Stop 09/12/18 at 12:46; Status DC Piperacillin Sod/ Tazobactam Sod 3.375 gm/Sodium Chloride 50 ml @ 100 mls/hr Q6HRS IV Last administered on 09/13/18at 05:37; Start 09/12/18 at 14:00; Stop 09/13/18 at 10:14; Status DC Aspirin (Children'S Aspirin) 81 mg BID PO ; Start 09/12/18 at 21:00 Atorvastatin Calcium (Lipitor) 40 mg QHS PO ; Start 09/12/18 at 21:00 Digoxin (Lanoxin) 125 mcg DAILY PO Last administered on 09/12/18 15:29; Start 09/12/18 at 15:00 Metoprolol Tartrate (Lopressor) 100 mg DAILY PO Last administered on 09/12/18at 15:28; Start 09/12/18 at 15:00; Stop 09/13/18 at 12:48; Status DC Warfarin Sodium (Coumadin) 5 mg [id number] PO Last administered on 09/12/18at 15:28; Start 09/12/18 at 16:00 Warfarin Sodium (Coumadin) 7.5 mg We PO ; Start 09/18/18 at 16:00 Magnesium Sulfate 50 ml @ 25 mls/hr 1X ONCE IV Last administered on 09/12/18at 15:32; Start 09/12/18 at 15:00; Stop 09/12/18 at 16:59; Status DC Warfarin Sodium (Coumadin Per Physician) 1 each PRN DAILY PRN MC SEE COMMENTS Last administered on 09/13/18at 14:43; Start 09/12/18 at 15:15; Stop 09/14/18 at 12 :14; Status DC Diltiazem HCl 125 mg/Dextrose 125 ml @ 5 mls/hr CONT PRN IV SEE I/O RECORD; Start 09/12/18 at 19:15 Sodium Chloride 1,000 ml @ 999 mls/hr 1X ONCE IV Last administered on 09/12/18at 20:16; Start 09/12/18 at 20:15; Stop 09/12/18 at 21:15; Status DC Meropenem 500 mg/ Sodium Chloride 50 ml @ 100 mls/hr Q6HRS IV Last administered on 09/14/18at 06:03; Start 09/13/18 at 12:00 Micafungin Sodium 100 mg/Dextrose 100 ml @ 100 mls/hr Q24H IV Last administered on 09/13/18at 10:50; Start 09/13/18 at 12:00 Linezolid (Zyvox) 600 mg BID PO ; Start 09/13/18 at 10:15; Stop 09/13/18 at 10:17; Status DC Linezolid/Dextrose 300 ml @ 300 mls/hr Q12HR IV Last administered on 09/14/18at 09:01; Start 09/13/18 at 10:30 Metoprolol Tartrate (Lopressor Vial) 5 mg Q6HRS IVP Last administered on 09/14/18at 06:03; Start 09/13/18 at 13:00 Sodium Chloride 1,000 ml @ 60 mls/hr 1X ONCE IV Last administered on 09/13/18at 13:45; Start 09/13/18 at 13:00; Stop 09/14/18 at 05:39; Status DC Amino Acids/ Glycerin/ Electrolytes 1,000 ml @ 80 mls/hr [id number] IV Last administered on 09/13/18at 17:43; Start 09/13/18 at 14:00 Furosemide (Lasix) 40 mg 1X ONCE IVP Last administered on 09/13/18at 16:10; Start 09/13/18 at 14:30; Stop 09/13/18 at 14:31; Status DC Barium Sulfate (Varibar Thin Liquid Apple) 148 gm 1X ONCE PO ; Start 09/13/18 at 14:15; Stop 09/13/18 at 14:21; Status DC Fluocinonide (Lidex) 1 mihaela BID TP Last administered on 09/14/18at 09:01; Start 09/13/18 at 15:00 Tamsulosin HCl (Flomax) 0.4 mg DAILY PO ; Start 09/13/18 at 15:00 Albuterol/ Ipratropium (Duoneb) 3 ml RTQID NEB Last administered on 09/14/18at 11:34; Start 09/13/18 at 08:00 Info (Tpn Per Pharmacy) 1 each PRN DAILY PRN MC SEE COMMENTS; Start 09/14/18 at 12:15 Saliva Substitute (Biotene Moisturizing Mouth) 2 spray PRN Q15MIN PRN PO DRY MO UTH; Start 09/14/18 at 12:15 Clotrimazole (Mycelex) 10 mg 5XDAY MM ; Start 09/14/18 at 14:00; Stop 09/16/18 at 08:00 Warfarin Sodium (Coumadin Per Pharmacy) 1 each PRN DAILY PRN MC SEE COMMENTS; Start 09/14/18 at 12:15 Active Scripts Active Reported Colace (Docusate Sodium) 100 Mg Capsule 1 Cap PO TID Metamucil Powder (Psyllium Seed (with Sugar)) 575 Gm Powder 575 Gm PO DAILY Willard 5-325 Tablet (Acetaminophen/Hydrocodone Bitart) 1 Each Tablet 7.5 Mg PO PRN Q6HRS PRN LAST DOSE GIVEN: Atorvastatin Calcium 40 Mg Tablet 1 Tab PO DAILY Metoprolol Tartrate 100 Mg Tablet 100 Mg PO DAILY Tamsulosin Hcl 0.4 Mg Cap.er.24h 0.4 Mg PO HS DAILY Vitamin C (Ascorbic Acid) 500 Mg Tablet 250 Mg PO DAILY Warfarin Sodium 5 Mg Tablet 1.5 Tab PO QWE Warfarin Sodium 5 Mg Tablet 1 Tab PO DAILY EXCEPT WED. Aspirin 81 Mg Tab.chew 81 Mg PO BID Lanoxin (Digoxin) 125 Mcg Tablet 125 Mcg PO DAILY Vitals/I & O Vital Sign - Last 24 Hours 09/13/18 09/13/18 09/13/18 09/13/18 13:45 14:43 15:53 18:12 Temp 97.9 97.9 Pulse 77 73 73 Resp 18 B/P (MAP) 111/59 176/61 (99) 176/61 Pulse Ox 96 O2 Delivery Nasal Cannula Room Air O2 Flow Rate 2.0 09/13/18 09/13/18 09/13/18 09/13/18 18:53 19:54 20:00 23:00 Temp 98.2 98.0 98.2 98.0 Pulse 98 82 Resp 18 16 B/P (MAP) 116/69 (85) 134/64 (87) Pulse Ox 90 95 O2 Delivery Nasal Cannula Room Air Nasal Cannula Nasal Cannula O2 Flow Rate 2.0 2.0 2.0 09/14/18 09/14/18 09/14/18 09/14/18 00:26 03:09 06:03 06:34 Temp 98.0 98.0 Pulse 82 77 77 Resp 18 B/P (MAP) 134/64 126/76 (93) 126/76 Pulse Ox 97 O2 Delivery Nasal Cannula Room Air O2 Flow Rate 2.0 09/14/18 09/14/18 09/14/18 09/14/18 07:00 08:00 10:57 11:35 Temp 98.2 98.2 98.2 98.2 Pulse 95 97 Resp 20 20 B/P (MAP) 122/76 (91) 114/63 (80) Pulse Ox 97 99 97 O2 Delivery Nasal Cannula Nasal Cannula Nasal Cannula Room Air O2 Flow Rate 2.0 2.0 2.0 Intake and Output 09/13/18 09/13/18 09/14/18 15:00 23:00 07:00 Intake Total 0 ml 300 ml 50 ml Balance 0 ml 300 ml 50 ml RADHA CALERO MD Sep 14, 2018 13:35
[2018-09-14] MEDS: CLOTRIMAZOLE 10 MG TROCHE. MM SCH ×2 (14:03→18:09)
[2018-09-14] MEDS: TPN PER PHARMACY MC PRN (14:45)
[2018-09-14 15:00] VITALS: BP 131/71
--- NOTE | 2018-09-14 15:00 | RAD ---
AP chest x-ray HISTORY: PICC line placement. COMPARISON: CT chest September 13, 2018. FINDINGS: Right PICC line tip proximal right atrium. Cardiac pacemaker again demonstrated. Heart size stable. Aortic arch calcified plaque. Focal bulla inferior lingula above the diaphragm stable. Skinfold artifact lateral right upper lobe. No pneumothorax. Mild pleural thickening or tiny left pleural effusion along the lateral diaphragm. Reticulonodular pulmonary infiltrates at the lower lung zones grossly stable. IMPRESSION: Right PICC line tip proximal right atrium. No pneumothorax. Pulmonary infiltrates are stable. Electronically signed by: Paulo Vega MD (09/14/2018 2:57 PM) [facility]
[2018-09-14] MEDS: MICAFUNGIN 100 MG in IV DEXTROSE 5% 100ML 100 ML IV SCH (15:14)
[2018-09-14] MEDS: POTASSIUM CHLORIDE 10MEQ 100 ML IV SCH ×4 (15:15→21:23)
--- NOTE | 2018-09-14 15:49 | RAD ---
EXAM: Chest, single view. HISTORY: PICC placement. COMPARISON: Radiograph obtained on the same date. FINDINGS: There is a right PICC with the tip in the superior vena cava. There is lucency overlying the right lung apex due to scan artifact. No convincing pneumothorax is seen. There is diffuse central predominant interstitial infiltrate. There is bilateral hilar prominence. There is linear scarring or atelectasis within the lingula. The heart is normal in size. There is a cardiac pacemaker in expected position. IMPRESSION: 1. Right PICC with the tip in the superior vena cava. There is no convincing pneumothorax. 2. Stable diffuse central predominant interstitial infiltrate with suspected lingular atelectasis or scarring. 3. Stable bilateral hilar prominence. Electronically signed by: Sarah Mccabe MD (09/14/2018 3:46 PM) [facility] [place]
--- NOTE | 2018-09-14 15:51 | NUR ---
PICC Insertion Note- Procedure: Following complete explanation of the PICC procedure including the indications, risks, and potential complications, informed consent was obtained. The possibility for infection was discussed along with signs, symptoms, and prevention. All the questions were answered. Written and verbal patient education was provided. Hand hygiene performed. Standardized central line checklist was utilized. The patient was placed in the supine position, the arm was prepped with chlorhexidine and patient draped with maximum sterile barrier. 2 mL 1% lidocaine was infiltrated into the skin to provide local anesthesia. A thorough assessment of Right upper extremity completed. Using real-time ultrasound guidance and standardized micro puncture set, the Basilic vein was punctured and a peel away sheath was placed using the modified Seldinger technique. A tip location device was used to ensure adequate catheter placement. The catheter was secured using a securement device and an antimicrobial patch was applied directly on the insertion site followed by a transparent dressing. All ports withdraw blood and flush without resistance. Patient tolerated the procedure without apparent complication(s). Double Lumen Power PICC placement successful and uncomplicated. Placement verified by chest x-ray. Tip located in the SVC. Complications: None Catheter trimmed at 44cm with 4cm visible at insertion site.
[2018-09-14] MEDS ORDERED: POTASSIUM PHOSPHATE DIBASIC 13.6 MMOL in IV DEXTROSE 5% 100ML 100 ML IV ONE (16:00)
[2018-09-14 19:00] VITALS: BP 133/70
[2018-09-14] MEDS: ATORVASTATIN CALCIUM 40 MG TABLET. PO SCH (21:00)
[2018-09-14] MEDS ORDERED: TOTAL PARENTERAL NUTRITION IV SCH ×11 (22:00)
[2018-09-14] MEDS ORDERED: [UNRECOGNIZED DRUG - OTHER] IV SCH ×11 (22:00)
[2018-09-14] MEDS ORDERED: DEXTROSE 70% IV SCH ×11 (22:00)
[2018-09-14] MEDS ORDERED: AMINO ACID IV SCH ×11 (22:00)
[2018-09-14 22:53] VITALS: BP 137/78
[2018-09-15] MEDS: HYDROcodone/APAP 5/325MG 1 TAB TABLET PO PRN (01:19)
[2018-09-15] MEDS: METOPROLOL TARTRATE 5 MG/5 ML VIAL. IVP SCH ×5 (01:19→23:29)
[2018-09-15] MEDS: CLOTRIMAZOLE 10 MG TROCHE. MM SCH ×6 (01:20→20:38)
[2018-09-15] MEDS: MEROPENEM 500 MG in IV NORMAL SALINE 50ML 50 ML IV SCH ×5 (01:21→23:30)
[2018-09-15 02:51] VITALS: BP 142/73
[2018-09-15 04:55] LABS: BASO % 0 % (0-3); EOS % 0 % (0-3); HEMATOCRIT 36.5 % (39.0-53.0); HEMOGLOBIN 11.7 g/dL (13.0-17.5); LYMPH # 0.8 x10^3/uL (1.0-4.8); LYMPH % 6 % (24-48); MEAN CORPUSCULAR HEMOGLOBIN 30 pg (25-35); MEAN CORPUSCULAR HGB CONC 32 g/dL (31-37); MEAN CORPUSCULAR VOLUME 94 fL (79-100); MONO # 0.4 x10^3/uL (0.0-1.1); MONO % 3 % (0-9); NEUT # 13.5 x10^3uL (1.8-7.7); NEUT % 92 % (31-73); PLATELET COUNT 358 x10^3/uL (140-400); RED CELL DISTRIBUTION WIDTH 15.6 % (11.5-14.5); WHITE BLOOD COUNT 14.7 x10^3/uL (4.0-11.0)
[2018-09-15 05:09] LABS: PROTHROMBIN TIME PATIENT 28.7 SEC (11.7-14.0)
[2018-09-15 05:19] LABS: ALBUMIN 2.2 g/dL (3.4-5.0); ALBUMIN/GLOBULIN RATIO 0.6 (1.0-1.7); CALCIUM 9.2 mg/dL (8.5-10.1); CREATININE 0.9 mg/dL (0.7-1.3); GFR 96.8; MAGNESIUM 1.9 mg/dL (1.8-2.4); PHOSPHORUS 2.3 mg/dL (2.6-4.7); POTASSIUM 3.6 mmol/L (3.5-5.1); TOTAL BILIRUBIN 1.9 mg/dL (0.2-1.0)
[2018-09-15 07:00] VITALS: BP 128/72
--- NOTE | 2018-09-15 07:15 | PDOC ---
PULMONARY PROGRESS NOTES Subjective sob better, has cough w sputum, better, no cp, t max 100.7 NOW NPO, has dysphagia Vitals Vital Signs Date Time Temp Pulse Resp B/P (MAP) Pulse Ox O2 Delivery O2 Flow Rate FiO2 09/15/18 06:29 92 142/73 09/15/18 02:51 98.3 18 97 Nasal Cannula 2.0 98.3 ROS: No Nausea, No Chest Pain, No Abdominal Pain, No Increase Cough General: Alert HEENT: Other (nc at perrl) Lungs: Crackles Cardiovascular: S1, S2 Abdomen: Soft, Non-tender Neuro Exam: Alert Extremities: No Edema Skin: Warm Labs Laboratory Tests Test 09/13/18 14:00 09/13/18 16:20 09/14/18 01:11 09/14/18 04:00 Urine Collection Type Unknown Urine Color Gege Urine Clarity Cloudy Urine pH 5.0 Urine Specific [place] 1.025 Urine Protein 30 mg/dL (NEG-TRACE) Urine Glucose (UA) Negative mg/dL (NEG) Urine Ketones (Stick) Negative mg/dL (NEG) Urine Blood Negative (NEG) Urine Nitrite Negative (NEG) Urine Bilirubin Negative (NEG) Urine Urobilinogen Dipstick 1.0 mg/dL (0.2 mg/dL) Urine Leukocyte Esterase Trace (NEG) Urine RBC 0 /HPF (0-2) Urine WBC Rare /HPF (0-4) Urine Squamous Epithelial Cells Mod /LPF Urine Bacteria 0 /HPF (0-FEW) Urine Yeast Present /HPF Prothrombin Time 27.0 SEC (11.7-14.0) Prothromb Time International Ratio 2.5 (0.8-1.1) Magnesium Level 2.0 mg/dL (1.8-2.4) Vancomycin Level Trough 5.4 mcg/mL (10.0-20.0) Vancomycin Last Dose Date 09/12/18 Vancomycin Last Dose Time 2300 Glucose (Fingerstick) 118 mg/dL (70-99) White Blood Count 12.0 x10^3/uL (4.0-11.0) Red Blood Count 3.84 x10^6/uL (4.30-5.70) Hemoglobin 11.5 g/dL (13.0-17.5) Hematocrit 36.0 % (39.0-53.0) Mean Corpuscular Volume 94 fL (79-100) Mean Corpuscular Hemoglobin 30 pg (25-35) Mean Corpuscular Hemoglobin Concent 32 g/dL (31-37) Red Cell Distribution Width 15.9 % (11.5-14.5) Platelet Count 309 x10^3/uL (140-400) Neutrophils (%) (Auto) 86 % (31-73) Lymphocytes (%) (Auto) 8 % (24-48) Monocytes (%) (Auto) 5 % (0-9) Eosinophils (%) (Auto) 0 % (0-3) Basophils (%) (Auto) 1 % (0-3) Neutrophils # (Auto) 10.3 x10^3uL (1.8-7.7) Lymphocytes # (Auto) 0.9 x10^3/uL (1.0-4.8) Monocytes # (Auto) 0.6 x10^3/uL (0.0-1.1) Eosinophils # (Auto) 0.0 x10^3/uL (0.0-0.7) Basophils # (Auto) 0.1 x10^3/uL (0.0-0.2) Sodium Level 143 mmol/L (136-145) Potassium Level 3.0 mmol/L (3.5-5.1) Chloride Level 108 mmol/L (98-107) Carbon Dioxide Level 26 mmol/L (21-32) Anion Gap 9 (6-14) Blood Urea Nitrogen 21 mg/dL (8-26) Creatinine 1.0 mg/dL (0.7-1.3) Estimated GFR (Cockcroft-Gault) 85.7 Glucose Level 108 mg/dL (70-99) Calcium Level 9.0 mg/dL (8.5-10.1) Phosphorus Level 2.4 mg/dL (2.6-4.7) Total Bilirubin 1.9 mg/dL (0.2-1.0) Direct Bilirubin 0.8 mg/dL (0.0-0.2) Aspartate Amino Transf (AST/SGOT) 26 U/L (15-37) Alanine Aminotransferase (ALT/SGPT) 13 U/L (16-63) Alkaline Phosphatase 63 U/L (46-116) Total Protein 5.8 g/dL (6.4-8.2) Albumin 2.3 g/dL (3.4-5.0) Test 09/14/18 12:05 09/14/18 18:11 09/15/18 02:15 09/15/18 04:50 Glucose (Fingerstick) 81 mg/dL (70-99) 81 mg/dL (70-99) 107 mg/dL (70-99) White Blood Count 14.7 x10^3/uL (4.0-11.0) Red Blood Count 3.90 x10^6/uL (4.30-5.70) Hemoglobin 11.7 g/dL (13.0-17.5) Hematocrit 36.5 % (39.0-53.0) Mean Corpuscular Volume 94 fL (79-100) Mean Corpuscular Hemoglobin 30 pg (25-35) Mean Corpuscular Hemoglobin Concent 32 g/dL (31-37) Red Cell Distribution Width 15.6 % (11.5-14.5) Platelet Count 358 x10^3/uL (140-400) Neutrophils (%) (Auto) 92 % (31-73) Lymphocytes (%) (Auto) 6 % (24-48) Monocytes (%) (Auto) 3 % (0-9) Eosinophils (%) (Auto) 0 % (0-3) Basophils (%) (Auto) 0 % (0-3) Neutrophils # (Auto) 13.5 x10^3uL (1.8-7.7) Lymphocytes # (Auto) 0.8 x10^3/uL (1.0-4.8) Monocytes # (Auto) 0.4 x10^3/uL (0.0-1.1) Eosinophils # (Auto) 0.0 x10^3/uL (0.0-0.7) Basophils # (Auto) 0.0 x10^3/uL (0.0-0.2) Prothrombin Time 28.7 SEC (11.7-14.0) Prothromb Time International Ratio 2.7 (0.8-1.1) Sodium Level 143 mmol/L (136-145) Potassium Level 3.6 mmol/L (3.5-5.1) Chloride Level 107 mmol/L (98-107) Carbon Dioxide Level 28 mmol/L (21-32) Anion Gap 8 (6-14) Blood Urea Nitrogen 22 mg/dL (8-26) Creatinine 0.9 mg/dL (0.7-1.3) Estimated GFR (Cockcroft-Gault) 96.8 BUN/Creatinine Ratio 24 (6-20) Glucose Level 159 mg/dL (70-99) Calcium Level 9.2 mg/dL (8.5-10.1) Phosphorus Level 2.3 mg/dL (2.6-4.7) Magnesium Level 1.9 mg/dL (1.8-2.4) Total Bilirubin 1.9 mg/dL (0.2-1.0) Aspartate Amino Transf (AST/SGOT) 27 U/L (15-37) Alanine Aminotransferase (ALT/SGPT) 15 U/L (16-63) Alkaline Phosphatase 69 U/L (46-116) Total Protein 6.0 g/dL (6.4-8.2) Albumin 2.2 g/dL (3.4-5.0) Albumin/Globulin Ratio 0.6 (1.0-1.7) Triglycerides Level 69 mg/dL (0-150) Laboratory Tests Test 09/14/18 12:05 09/14/18 18:11 09/15/18 02:15 09/15/18 04:50 Glucose (Fingerstick) 81 mg/dL (70-99) 81 mg/dL (70-99) 107 mg/dL (70-99) White Blood Count 14.7 x10^3/uL (4.0-11.0) Red Blood Count 3.90 x10^6/uL (4.30-5.70) Hemoglobin 11.7 g/dL (13.0-17.5) Hematocrit 36.5 % (39.0-53.0) Mean Corpuscular Volume 94 fL (79-100) Mean Corpuscular Hemoglobin 30 pg (25-35) Mean Corpuscular Hemoglobin Concent 32 g/dL (31-37) Red Cell Distribution Width 15.6 % (11.5-14.5) Platelet Count 358 x10^3/uL (140-400) Neutrophils (%) (Auto) 92 % (31-73) Lymphocytes (%) (Auto) 6 % (24-48) Monocytes (%) (Auto) 3 % (0-9) Eosinophils (%) (Auto) 0 % (0-3) Basophils (%) (Auto) 0 % (0-3) Neutrophils # (Auto) 13.5 x10^3uL (1.8-7.7) Lymphocytes # (Auto) 0.8 x10^3/uL (1.0-4.8) Monocytes # (Auto) 0.4 x10^3/uL (0.0-1.1) Eosinophils # (Auto) 0.0 x10^3/uL (0.0-0.7) Basophils # (Auto) 0.0 x10^3/uL (0.0-0.2) Prothrombin Time 28.7 SEC (11.7-14.0) Prothromb Time International Ratio 2.7 (0.8-1.1) Sodium Level 143 mmol/L (136-145) Potassium Level 3.6 mmol/L (3.5-5.1) Chloride Level 107 mmol/L (98-107) Carbon Dioxide Level 28 mmol/L (21-32) Anion Gap 8 (6-14) Blood Urea Nitrogen 22 mg/dL (8-26) Creatinine 0.9 mg/dL (0.7-1.3) Estimated GFR (Cockcroft-Gault) 96.8 BUN/Creatinine Ratio 24 (6-20) Glucose Level 159 mg/dL (70-99) Calcium Level 9.2 mg/dL (8.5-10.1) Phosphorus Level 2.3 mg/dL (2.6-4.7) Magnesium Level 1.9 mg/dL (1.8-2.4) Total Bilirubin 1.9 mg/dL (0.2-1.0) Aspartate Amino Transf (AST/SGOT) 27 U/L (15-37) Alanine Aminotransferase (ALT/SGPT) 15 U/L (16-63) Alkaline Phosphatase 69 U/L (46-116) Total Protein 6.0 g/dL (6.4-8.2) Albumin 2.2 g/dL (3.4-5.0) Albumin/Globulin Ratio 0.6 (1.0-1.7) Triglycerides Level 69 mg/dL (0-150) Medications Active Scripts Medications Dose Route/Sig Max Daily Dose Days Date Category Dose Instructions Colace (Docusate Sodium) 100 Mg Capsule 1 Cap PO TID 09/09/18 Reported Metamucil Powder (Psyllium Seed (with Sugar)) 575 Gm Powder 575 Gm PO DAILY 09/09/18 [address] [employer] [place] 5-325 Tablet (Acetaminophen/Hydrocodone Bitart) 1 Each Tablet 7.5 Mg PO PRN Q6HRS PRN 09/09/18 Reported LAST DOSE GIVEN: Atorvastatin Calcium 40 Mg Tablet 1 Tab PO DAILY 08/12/18 Reported Metoprolol Tartrate 100 Mg Tablet 100 Mg PO DAILY 11/08/17 Reported Tamsulosin Hcl 0.4 Mg Cap.er.24h 0.4 Mg PO HS DAILY 11/08/17 Reported Vitamin C (Ascorbic Acid) 500 Mg Tablet 250 Mg PO DAILY 05/08/14 Reported Warfarin Sodium 5 Mg Tablet 1.5 Tab PO QWE 04/18/14 Reported Warfarin Sodium 5 Mg Tablet 1 Tab PO DAILY EXCEPT WED. 04/18/14 Reported Aspirin 81 Mg Tab.chew 81 Mg PO BID 08/22/13 Reported Lanoxin (Digoxin) 125 Mcg Tablet 125 Mcg PO DAILY 08/22/[address] reviewed 1. Mixed interstitial and airspace infiltrates in both lungs, predominantly dependent. There is likely a component of pulmonary edema, as well as acute infiltrate or pneumonia. 2. 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 Appears similar to that report prior study. 3. Mild splenomegaly. 4. Gynecomastia. Impression . IMPRESSION: 1. Abnormal x-ray. 2. Respiratory insufficiency. 3. possible sepsis. 4. Coronary artery disease. 5. Secondary pulmonary hypertension. 6. Obstructive sleep apnea. 7. Acute on chronic diastolic heart failure. 8. Permanent atrial fibrillation along with sick sinus syndrome, status post pacemaker implantation. 9. dysphagia. abnl opv 10. low grade fever Plan . FOLLOW SPEECH INPUT, aspiration precaution, npo, elevate hob MAY NEED DOBBHOFF OR PEG 1. Continue current empiric antibiotics per id, Zyvox (09/13) Merrem (changed 6/7 d/t increase WBC) and micafungin (09/13) . 2. CT reviewed 3. Follow clinical course and make further adjustments on antibiotics and medical regimen. 4. keep I<O 5. Follow Cardiology input. discussed w rn, pt IFEANYI JACQUES MD Sep 15, 2018 07:15
[2018-09-15] MEDS: IPRATRPIUM/ALBUTEROL 0.5/2.5MG 3 ML NEBU. NEB SCH ×4 (07:21→19:46)
[2018-09-15] MEDS: TAMSULOSIN 0.4 MG CAP.ER.24H. PO SCH (08:31)
[2018-09-15] MEDS: LACTOBACILLUS RHAMNOSUS GG 1 CAPSULE. PO SCH ×2 (08:31→20:41)
[2018-09-15] MEDS: ASPIRIN CHEWABLE 81 MG TABLET. PO SCH ×2 (08:31→20:41)
--- NOTE | 2018-09-15 08:56 | PDOC ---
Infectious Disease Note Subjective Subjective s/p PICC placement, 09/14 Feeling pretty good Developed fever 100.7, says he didn't feel it, denies chills/aches Wants to go home Denies CP/SOA Denies N/V/D ROS ROS per HPI Vital Sign Vital Signs Vital Signs Date Time Temp Pulse Resp B/P (MAP) Pulse Ox O2 Delivery O2 Flow Rate FiO2 09/15/18 07:21 97 Nasal Cannula 2.0 09/15/18 07:00 100.7 94 18 128/72 (90) 100.7 Physical Exam PHYSICAL EXAM GENERAL: Propped up in bed, alert, laughing HEENT: Pupils equal, Oral cavity, pharynx clear with some questionable dentition. NECK: Supple, no JVD. LUNGS: Clear anteriorly, nonlabored HEART: S1, S2. Pacemaker without signs of complications. ABDOMEN: Positive bowel sounds, soft, nontender, left lower quadrant incision is well approximated, no drainage, erythema or warmth. EXTREMITIES: Without clubbing, cyanosis nor gross edema. SKIN: Warm to touch without signs of rash. NEUROLOGIC: Alert, seems little confused RUE-PICC (09/14) clean Labs Lab Laboratory Tests Test 09/14/18 12:05 09/14/18 18:11 09/15/18 02:15 09/15/18 04:50 Glucose (Fingerstick) 81 mg/dL (70-99) 81 mg/dL (70-99) 107 mg/dL (70-99) White Blood Count 14.7 x10^3/uL (4.0-11.0) Red Blood Count 3.90 x10^6/uL (4.30-5.70) Hemoglobin 11.7 g/dL (13.0-17.5) Hematocrit 36.5 % (39.0-53.0) Mean Corpuscular Volume 94 fL (79-100) Mean Corpuscular Hemoglobin 30 pg (25-35) Mean Corpuscular Hemoglobin Concent 32 g/dL (31-37) Red Cell Distribution Width 15.6 % (11.5-14.5) Platelet Count 358 x10^3/uL (140-400) Neutrophils (%) (Auto) 92 % (31-73) Lymphocytes (%) (Auto) 6 % (24-48) Monocytes (%) (Auto) 3 % (0-9) Eosinophils (%) (Auto) 0 % (0-3) Basophils (%) (Auto) 0 % (0-3) Neutrophils # (Auto) 13.5 x10^3uL (1.8-7.7) Lymphocytes # (Auto) 0.8 x10^3/uL (1.0-4.8) Monocytes # (Auto) 0.4 x10^3/uL (0.0-1.1) Eosinophils # (Auto) 0.0 x10^3/uL (0.0-0.7) Basophils # (Auto) 0.0 x10^3/uL (0.0-0.2) Prothrombin Time 28.7 SEC (11.7-14.0) Prothromb Time International Ratio 2.7 (0.8-1.1) Sodium Level 143 mmol/L (136-145) Potassium Level 3.6 mmol/L (3.5-5.1) Chloride Level 107 mmol/L (98-107) Carbon Dioxide Level 28 mmol/L (21-32) Anion Gap 8 (6-14) Blood Urea Nitrogen 22 mg/dL (8-26) Creatinine 0.9 mg/dL (0.7-1.3) Estimated GFR (Cockcroft-Gault) 96.8 BUN/Creatinine Ratio 24 (6-20) Glucose Level 159 mg/dL (70-99) Calcium Level 9.2 mg/dL (8.5-10.1) Phosphorus Level 2.3 mg/dL (2.6-4.7) Magnesium Level 1.9 mg/dL (1.8-2.4) Total Bilirubin 1.9 mg/dL (0.2-1.0) Aspartate Amino Transf (AST/SGOT) 27 U/L (15-37) Alanine Aminotransferase (ALT/SGPT) 15 U/L (16-63) Alkaline Phosphatase 69 U/L (46-116) Total Protein 6.0 g/dL (6.4-8.2) Albumin 2.2 g/dL (3.4-5.0) Albumin/Globulin Ratio 0.6 (1.0-1.7) Triglycerides Level 69 mg/dL (0-150) Micro 09/12/18 Blood Culture - Preliminary, Resulted NO GROWTH AFTER 3 DAYS 09/13. URINE CULTURE RES 1 Final No growth Objective Assessment Fever, low-grade Bandemia Leukocytosis Possible UTI - c/o urinary complications prior to admit; yeast present S/p repair of incarcerated left inguinal hernia, had actually herniations on both sides of the cord structures at the internal inguinal ring 09/09 Acute on chronic diastolic HF; recent echo with preserved LV systolic function as noted above. CAD; catheterization 08/2018 with [employer] O[employer]ATOR [employer], which is unchanged from previous cath in 2013. Stable CP free. Permanent AFIB; rate controlled. on warfarin for stroke prevention. INR 2.7, PPM Diabetes, II Elevated TB - ? sec to Afib possible congestion Dysphagia Plan Plan of Care Zyvox (09/13) Merrem (changed 09/13 d/t increase WBC) and micafungin (09/13) Probiotics Cultures neg so far Monitor WBC/temp Maintain aspiration precautions D/w nursing Attending Co-Sign The patient was seen and interviewed as well as examined at the bedside. The chart was reviewed. The case was discussed. Agree with the plan of care. AR PANIAGUA APRN Sep 15, 2018 08:56 AUSTIN TIJERINA MD Sep 15, 2018 13:57
[2018-09-15] MEDS: FLUOCINONIDE 0.05% TOPICAL CREAM 15 GM TUBE. TP SCH ×2 (08:57→20:41)
[2018-09-15] MEDS: DIGOXIN 125 MCG TABLET. PO SCH (08:58)
[2018-09-15] MEDS: DICLOFENAC SODIUM 1% TOPICAL GEL 100GM TUBE. TP PRN (08:59)
[2018-09-15 10:30] VITALS: BP 151/83
[2018-09-15] MEDS ORDERED: ACETAMINOPHEN 325 MG SUPP.RECT. PR PRN (11:30)
--- NOTE | 2018-09-15 12:24 | PDOC ---
PROGRESS NOTES Subjective Subjective Feels better. Wants to go home. Objective Objective Vital Signs Date Time Temp Pulse Resp B/P (MAP) Pulse Ox O2 Delivery O2 Flow Rate FiO2 09/15/18 11:53 Room Air 09/15/18 11:46 90 151/83 09/15/18 10:30 98.5 18 97 98.5 09/15/18 08:00 2.0 Intake and Output 09/15/18 07:00 Intake Total 1400 ml Balance 1400 ml Intake Oral 0 ml IV Total 1400 ml # Voids 3 # Bowel Movements 1 Physical Exam Heart: Regular rate, No murmurs Extremities: No clubbing General: Alert, Oriented X3, Cooperative, No acute distress MUSCULOSKELETAL: Osteoarthritic changes both hands Skin: No rashes Assessment Assessment 1. Fever/Leukocytosis with possible aspiration PNA and UTI. Treatment per ID team. 2. Acute on chronic diastolic CHF; recent echo with preserved LV systolic function as noted above. Improved with diuresis. 3. CAD; catheterization 08/2018 with ANALYT[employer] MANAGER [employer], which is unchanged from previous cath in 2013. clinically stable and chest pain-free 4. Permanent AFIB; rate controlled. on warfarin for stroke prevention 5. 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) - recent device check showed normal function 6. Hypertension; continue current medical regimen 7. Hyperlipidemia; statin 8. Diabetes, II: Per IM 9. S/P incarcerated left inguinal hernia repair 10. Urinary retention: defer to PCP Plan Plan of Care Problems Medical Problems: (1) Pneumonia Status: Acute (2) Sepsis Status: Acute Comment Review of Relevant I have reviewed the following items tiffany (where applicable) has been applied. Labs Laboratory Tests Test 09/14/18 18:11 09/15/18 02:15 09/15/18 04:50 Glucose (Fingerstick) 81 mg/dL (70-99) 107 mg/dL (70-99) White Blood Count 14.7 x10^3/uL (4.0-11.0) Red Blood Count 3.90 x10^6/uL (4.30-5.70) Hemoglobin 11.7 g/dL (13.0-17.5) Hematocrit 36.5 % (39.0-53.0) Mean Corpuscular Volume 94 fL (79-100) Mean Corpuscular Hemoglobin 30 pg (25-35) Mean Corpuscular Hemoglobin Concent 32 g/dL (31-37) Red Cell Distribution Width 15.6 % (11.5-14.5) Platelet Count 358 x10^3/uL (140-400) Neutrophils (%) (Auto) 92 % (31-73) Lymphocytes (%) (Auto) 6 % (24-48) Monocytes (%) (Auto) 3 % (0-9) Eosinophils (%) (Auto) 0 % (0-3) Basophils (%) (Auto) 0 % (0-3) Neutrophils # (Auto) 13.5 x10^3uL (1.8-7.7) Lymphocytes # (Auto) 0.8 x10^3/uL (1.0-4.8) Monocytes # (Auto) 0.4 x10^3/uL (0.0-1.1) Eosinophils # (Auto) 0.0 x10^3/uL (0.0-0.7) Basophils # (Auto) 0.0 x10^3/uL (0.0-0.2) Prothrombin Time 28.7 SEC (11.7-14.0) Prothromb Time International Ratio 2.7 (0.8-1.1) Sodium Level 143 mmol/L (136-145) Potassium Level 3.6 mmol/L (3.5-5.1) Chloride Level 107 mmol/L (98-107) Carbon Dioxide Level 28 mmol/L (21-32) Anion Gap 8 (6-14) Blood Urea Nitrogen 22 mg/dL (8-26) Creatinine 0.9 mg/dL (0.7-1.3) Estimated GFR (Cockcroft-Gault) 96.8 BUN/Creatinine Ratio 24 (6-20) Glucose Level 159 mg/dL (70-99) Calcium Level 9.2 mg/dL (8.5-10.1) Phosphorus Level 2.3 mg/dL (2.6-4.7) Magnesium Level 1.9 mg/dL (1.8-2.4) Total Bilirubin 1.9 mg/dL (0.2-1.0) Aspartate Amino Transf (AST/SGOT) 27 U/L (15-37) Alanine Aminotransferase (ALT/SGPT) 15 U/L (16-63) Alkaline Phosphatase 69 U/L (46-116) Total Protein 6.0 g/dL (6.4-8.2) Albumin 2.2 g/dL (3.4-5.0) Albumin/Globulin Ratio 0.6 (1.0-1.7) Triglycerides Level 69 mg/dL (0-150) Microbiology 09/12/18 Blood Culture - Preliminary, Resulted NO GROWTH AFTER 3 DAYS 09/13/18 Urine Culture - Final, Complete 09/13/18 Urine Culture Result 1 (MOI) - Final, Complete Medications Current Medications Acetaminophen (Tylenol Supp) 325 mg PRN Q6HRS PRN MT MILD PAIN / TEMP; Start 09/15/18 at 11:30 Clotrimazole (Mycelex) 10 mg 5XDAY MM Last administered on 09/15/18at 10:55; Start 09/14/18 at 14:00; Stop 09/16/18 at 08:00 Dextrose (Dextrose 50%-Water Syringe) 12.5 gm PRN Q15MIN PRN IV SEE COMMENTS; Start 09/14/18 at 18:30 Diclofenac Sodium (Voltaren) 1 mihaela PRN BID PRN TP KNEE PAIN Last administered on 09/15/18at 08:59; Start 09/15/18 at 02:00 Enoxaparin Sodium (Lovenox Per Pharmacy Treatment Dosing) 1 each PRN DAILY PRN MC SEE COMMENTS; Start 09/14/18 at 14:15 Potassium Chloride/Water 100 ml @ 100 mls/hr Q1H IV Last administered on 09/14/18at 21:23; Start 09/14/18 at 16:00; Stop 09/14/18 at 19:59; Status DC Potassium Phosphate 13.6 mmol/Dextrose 104.5333 ml @ 52.267 m... 1X ONCE IV ; Start 09/14/18 at 16:00; Stop 09/14/18 at 17:59; Status Cancel Sodium Chloride 45 meq/Sodium Acetate 45 meq/ Potassium Chloride 25 meq/ Potassium Acetate 25 meq/Potassium Phosphate 20.4 mmol/Magnesium Sulfate 10 meq/ Multivitamins 10 ml/Chromium/ Copper/Manganese/ Seleni/Zn 1 ml/ Total Parenteral Nutrition/Amino Acids/Dextrose/ Fat Emulsion Intravenous 1,512 ml @ 63 mls/hr TPN CONT IV Last administered on 09/14/18at 21:21; Start 09/14/18 at 22:00; Stop 09/15/18 at 21:59 Warfarin Sodium (Coumadin) 7.5 mg We PO ; Start 09/18/18 at 16:00; Stop 09/18/18 at 16:00; Status DC Vitals/I & O Vital Sign - Last 24 Hours 09/14/18 09/14/18 09/14/18 09/14/18 15:00 15:15 15:19 18:08 Temp 98.4 98.4 Pulse 90 90 90 Resp 20 B/P (MAP) 131/71 (91) 131/71 131/71 Pulse Ox 97 O2 Delivery Nasal Cannula Nasal Cannula O2 Flow Rate 2.0 2.0 09/14/18 09/14/18 09/14/18 09/14/18 18:28 19:00 20:00 22:53 Temp 99.0 97.6 99.0 97.6 Pulse 82 86 Resp 18 20 B/P (MAP) 133/70 (91) 137/78 (97) Pulse Ox 96 98 O2 Delivery Nasal Cannula Nasal Cannula Nasal Cannula Nasal Cannula O2 Flow Rate 2.0 1.0 2.0 2.0 09/15/18 09/15/18 09/15/18 09/15/18 01:19 02:51 06:29 07:00 Temp 98.3 100.7 98.3 100.7 Pulse 86 92 92 94 Resp 18 18 B/P (MAP) 137/78 142/73 (96) 142/73 128/72 (90) Pulse Ox 97 97 O2 Delivery Nasal Cannula Nasal Cannula O2 Flow Rate 2.0 2.0 09/15/18 09/15/18 09/15/18 09/15/18 07:21 08:00 10:30 11:46 Temp 98.5 98.5 Pulse 90 90 Resp 18 B/P (MAP) 151/83 (105) 151/83 Pulse Ox 97 97 O2 Delivery Nasal Cannula Room Air Room Air O2 Flow Rate 2.0 2.0 09/15/18 11:53 O2 Delivery Room Air Intake and Output 09/14/18 09/14/18 09/15/18 15:00 23:00 07:00 Intake Total 0 ml 1400 ml Balance 0 ml 1400 ml SHAWN PARKER MD Sep 15, 2018 12:24
[2018-09-15] MEDS: MICAFUNGIN 100 MG in IV DEXTROSE 5% 100ML 100 ML IV SCH (12:39)
[2018-09-15] MEDS: TPN PER PHARMACY MC PRN (13:10)
--- NOTE | 2018-09-15 13:20 | NUR ---
Pharmacy TPN Dosing Note S: MAMTA MACIAS is a 87 year old M Currently receiving Central Continuous TPN started 09/14/18 B:Pertinent PMH: failed swallow study Height: 6 feet, 0 inches Weight: 87.597315 kg Current diet: npo LABS: Sodium: 143 Potassium: 3.6 Chloride: 107 Calcium: 9.2 Corrected Calcium: 10.64 Magnesium: 1.9 CO2: 28 SCr: 0.9 Glucose: 159 Albumin: 2.2 AST: 27 ALT: 15 TPN FORMULA: TPN TYPE: Central Continuous AMINO ACIDS: 60 gm DEXTROSE: 195 gm LIPIDS: 20 gm SODIUM CHLORIDE: 45 mEq SODIUM ACETATE: 10 mEq SODIUM PHOSPHATE: 15 mmol POTASSIUM CHLORIDE: 25 mEq POTASSIUM ACETATE: 25 mEq POTASSIUM PHOSPHATE: 20.4 mmol MAGNESIUM: 10 mEq CALCIUM: 0 mEq INSULIN: units MULTIPLE VITAMIN: 10 ml TRACE ELEMENTS: 1 ml ml(s) TPN PLAN: increase phos in tpn, decrease sodium slightly. R: Continue TPN as ordered Will monitor electrolytes, glucose, and tolerance to TPN. HARRY ROSALES, [facility], 09/15/18 [id number]
[2018-09-15 15:00] VITALS: BP 125/71
--- NOTE | 2018-09-15 17:48 | PDOC ---
PROGRESS NOTES Chief Complaint Chief Complaint sepsis, UTI aspiration PNA Acute on chronic diastolic CHF; Hx CAD; htn, lipids, DM2, chronic diastolic CHF, with afib Permanent AFIB; rate controlled. on warfarin for stroke prevention dysphagia, acute urinary retention, phimosis weakness, acquired History of Present Illness History of Present Illness more alert, feels well today, voiding well still weak TPN for nutrition cont current he feels stronger, will repeat swallow eval this week PT and OT Vitals Vitals Vital Signs Date Time Temp Pulse Resp B/P (MAP) Pulse Ox O2 Delivery O2 Flow Rate FiO2 09/15/18 17:38 86 125/71 09/15/18 15:55 92 Room Air 09/15/18 15:00 99.3 99.3 09/15/18 10:30 18 09/15/18 08:00 2.0 Physical Exam Physical Exam GENERAL: Propped up in bed, alert, laughing HEENT: Pupils equal, Oral cavity, pharynx clear with some questionable dentition. NECK: Supple, no JVD. LUNGS: Clear anteriorly, nonlabored HEART: S1, S2. Pacemaker without signs of complications. ABDOMEN: Positive bowel sounds, soft, nontender, left lower quadrant incision is well approximated, no drainage, erythema or warmth. EXTREMITIES: Without clubbing, cyanosis nor gross edema. SKIN: Warm to touch without signs of rash. NEUROLOGIC: Alert, seems little confused RUE-PICC (09/14) clean General: Alert, Oriented X3, Cooperative, No acute distress Heart: Regular rate, No murmurs Lungs: Crackles Extremities: No clubbing Skin: No rashes Labs LABS Laboratory Tests Test 09/14/18 18:11 09/15/18 02:15 09/15/18 04:50 Glucose (Fingerstick) 81 mg/dL (70-99) 107 mg/dL (70-99) White Blood Count 14.7 x10^3/uL (4.0-11.0) Red Blood Count 3.90 x10^6/uL (4.30-5.70) Hemoglobin 11.7 g/dL (13.0-17.5) Hematocrit 36.5 % (39.0-53.0) Mean Corpuscular Volume 94 fL (79-100) Mean Corpuscular Hemoglobin 30 pg (25-35) Mean Corpuscular Hemoglobin Concent 32 g/dL (31-37) Red Cell Distribution Width 15.6 % (11.5-14.5) Platelet Count 358 x10^3/uL (140-400) Neutrophils (%) (Auto) 92 % (31-73) Lymphocytes (%) (Auto) 6 % (24-48) Monocytes (%) (Auto) 3 % (0-9) Eosinophils (%) (Auto) 0 % (0-3) Basophils (%) (Auto) 0 % (0-3) Neutrophils # (Auto) 13.5 x10^3uL (1.8-7.7) Lymphocytes # (Auto) 0.8 x10^3/uL (1.0-4.8) Monocytes # (Auto) 0.4 x10^3/uL (0.0-1.1) Eosinophils # (Auto) 0.0 x10^3/uL (0.0-0.7) Basophils # (Auto) 0.0 x10^3/uL (0.0-0.2) Prothrombin Time 28.7 SEC (11.7-14.0) Prothromb Time International Ratio 2.7 (0.8-1.1) Sodium Level 143 mmol/L (136-145) Potassium Level 3.6 mmol/L (3.5-5.1) Chloride Level 107 mmol/L (98-107) Carbon Dioxide Level 28 mmol/L (21-32) Anion Gap 8 (6-14) Blood Urea Nitrogen 22 mg/dL (8-26) Creatinine 0.9 mg/dL (0.7-1.3) Estimated GFR (Cockcroft-Gault) 96.8 BUN/Creatinine Ratio 24 (6-20) Glucose Level 159 mg/dL (70-99) Calcium Level 9.2 mg/dL (8.5-10.1) Phosphorus Level 2.3 mg/dL (2.6-4.7) Magnesium Level 1.9 mg/dL (1.8-2.4) Total Bilirubin 1.9 mg/dL (0.2-1.0) Aspartate Amino Transf (AST/SGOT) 27 U/L (15-37) Alanine Aminotransferase (ALT/SGPT) 15 U/L (16-63) Alkaline Phosphatase 69 U/L (46-116) Total Protein 6.0 g/dL (6.4-8.2) Albumin 2.2 g/dL (3.4-5.0) Albumin/Globulin Ratio 0.6 (1.0-1.7) Triglycerides Level 69 mg/dL (0-150) Assessment and Plan Assessmemt and Plan Problems Medical Problems: (1) Pneumonia Status: Acute (2) Sepsis Status: Acute Comment Review of Relevant I have reviewed the following items tiffany (where applicable) has been applied. Labs Laboratory Tests Test 09/14/18 01:11 09/14/18 04:00 09/14/18 12:05 09/14/18 18:11 Glucose (Fingerstick) 118 mg/dL (70-99) 81 mg/dL (70-99) 81 mg/dL (70-99) White Blood Count 12.0 x10^3/uL (4.0-11.0) Red Blood Count 3.84 x10^6/uL (4.30-5.70) Hemoglobin 11.5 g/dL (13.0-17.5) Hematocrit 36.0 % (39.0-53.0) Mean Corpuscular Volume 94 fL (79-100) Mean Corpuscular Hemoglobin 30 pg (25-35) Mean Corpuscular Hemoglobin Concent 32 g/dL (31-37) Red Cell Distribution Width 15.9 % (11.5-14.5) Platelet Count 309 x10^3/uL (140-400) Neutrophils (%) (Auto) 86 % (31-73) Lymphocytes (%) (Auto) 8 % (24-48) Monocytes (%) (Auto) 5 % (0-9) Eosinophils (%) (Auto) 0 % (0-3) Basophils (%) (Auto) 1 % (0-3) Neutrophils # (Auto) 10.3 x10^3uL (1.8-7.7) Lymphocytes # (Auto) 0.9 x10^3/uL (1.0-4.8) Monocytes # (Auto) 0.6 x10^3/uL (0.0-1.1) Eosinophils # (Auto) 0.0 x10^3/uL (0.0-0.7) Basophils # (Auto) 0.1 x10^3/uL (0.0-0.2) Sodium Level 143 mmol/L (136-145) Potassium Level 3.0 mmol/L (3.5-5.1) Chloride Level 108 mmol/L (98-107) Carbon Dioxide Level 26 mmol/L (21-32) Anion Gap 9 (6-14) Blood Urea Nitrogen 21 mg/dL (8-26) Creatinine 1.0 mg/dL (0.7-1.3) Estimated GFR (Cockcroft-Gault) 85.7 Glucose Level 108 mg/dL (70-99) Calcium Level 9.0 mg/dL (8.5-10.1) Phosphorus Level 2.4 mg/dL (2.6-4.7) Total Bilirubin 1.9 mg/dL (0.2-1.0) Direct Bilirubin 0.8 mg/dL (0.0-0.2) Aspartate Amino Transf (AST/SGOT) 26 U/L (15-37) Alanine Aminotransferase (ALT/SGPT) 13 U/L (16-63) Alkaline Phosphatase 63 U/L (46-116) Total Protein 5.8 g/dL (6.4-8.2) Albumin 2.3 g/dL (3.4-5.0) Test 09/15/18 02:15 09/15/18 04:50 Glucose (Fingerstick) 107 mg/dL (70-99) White Blood Count 14.7 x10^3/uL (4.0-11.0) Red Blood Count 3.90 x10^6/uL (4.30-5.70) Hemoglobin 11.7 g/dL (13.0-17.5) Hematocrit 36.5 % (39.0-53.0) Mean Corpuscular Volume 94 fL (79-100) Mean Corpuscular Hemoglobin 30 pg (25-35) Mean Corpuscular Hemoglobin Concent 32 g/dL (31-37) Red Cell Distribution Width 15.6 % (11.5-14.5) Platelet Count 358 x10^3/uL (140-400) Neutrophils (%) (Auto) 92 % (31-73) Lymphocytes (%) (Auto) 6 % (24-48) Monocytes (%) (Auto) 3 % (0-9) Eosinophils (%) (Auto) 0 % (0-3) Basophils (%) (Auto) 0 % (0-3) Neutrophils # (Auto) 13.5 x10^3uL (1.8-7.7) Lymphocytes # (Auto) 0.8 x10^3/uL (1.0-4.8) Monocytes # (Auto) 0.4 x10^3/uL (0.0-1.1) Eosinophils # (Auto) 0.0 x10^3/uL (0.0-0.7) Basophils # (Auto) 0.0 x10^3/uL (0.0-0.2) Prothrombin Time 28.7 SEC (11.7-14.0) Prothromb Time International Ratio 2.7 (0.8-1.1) Sodium Level 143 mmol/L (136-145) Potassium Level 3.6 mmol/L (3.5-5.1) Chloride Level 107 mmol/L (98-107) Carbon Dioxide Level 28 mmol/L (21-32) Anion Gap 8 (6-14) Blood Urea Nitrogen 22 mg/dL (8-26) Creatinine 0.9 mg/dL (0.7-1.3) Estimated GFR (Cockcroft-Gault) 96.8 BUN/Creatinine Ratio 24 (6-20) Glucose Level 159 mg/dL (70-99) Calcium Level 9.2 mg/dL (8.5-10.1) Phosphorus Level 2.3 mg/dL (2.6-4.7) Magnesium Level 1.9 mg/dL (1.8-2.4) Total Bilirubin 1.9 mg/dL (0.2-1.0) Aspartate Amino Transf (AST/SGOT) 27 U/L (15-37) Alanine Aminotransferase (ALT/SGPT) 15 U/L (16-63) Alkaline Phosphatase 69 U/L (46-116) Total Protein 6.0 g/dL (6.4-8.2) Albumin 2.2 g/dL (3.4-5.0) Albumin/Globulin Ratio 0.6 (1.0-1.7) Triglycerides Level 69 mg/dL (0-150) Laboratory Tests Test 09/14/18 18:11 09/15/18 02:15 09/15/18 04:50 Glucose (Fingerstick) 81 mg/dL (70-99) 107 mg/dL (70-99) White Blood Count 14.7 x10^3/uL (4.0-11.0) Red Blood Count 3.90 x10^6/uL (4.30-5.70) Hemoglobin 11.7 g/dL (13.0-17.5) Hematocrit 36.5 % (39.0-53.0) Mean Corpuscular Volume 94 fL (79-100) Mean Corpuscular Hemoglobin 30 pg (25-35) Mean Corpuscular Hemoglobin Concent 32 g/dL (31-37) Red Cell Distribution Width 15.6 % (11.5-14.5) Platelet Count 358 x10^3/uL (140-400) Neutrophils (%) (Auto) 92 % (31-73) Lymphocytes (%) (Auto) 6 % (24-48) Monocytes (%) (Auto) 3 % (0-9) Eosinophils (%) (Auto) 0 % (0-3) Basophils (%) (Auto) 0 % (0-3) Neutrophils # (Auto) 13.5 x10^3uL (1.8-7.7) Lymphocytes # (Auto) 0.8 x10^3/uL (1.0-4.8) Monocytes # (Auto) 0.4 x10^3/uL (0.0-1.1) Eosinophils # (Auto) 0.0 x10^3/uL (0.0-0.7) Basophils # (Auto) 0.0 x10^3/uL (0.0-0.2) Prothrombin Time 28.7 SEC (11.7-14.0) Prothromb Time International Ratio 2.7 (0.8-1.1) Sodium Level 143 mmol/L (136-145) Potassium Level 3.6 mmol/L (3.5-5.1) Chloride Level 107 mmol/L (98-107) Carbon Dioxide Level 28 mmol/L (21-32) Anion Gap 8 (6-14) Blood Urea Nitrogen 22 mg/dL (8-26) Creatinine 0.9 mg/dL (0.7-1.3) Estimated GFR (Cockcroft-Gault) 96.8 BUN/Creatinine Ratio 24 (6-20) Glucose Level 159 mg/dL (70-99) Calcium Level 9.2 mg/dL (8.5-10.1) Phosphorus Level 2.3 mg/dL (2.6-4.7) Magnesium Level 1.9 mg/dL (1.8-2.4) Total Bilirubin 1.9 mg/dL (0.2-1.0) Aspartate Amino Transf (AST/SGOT) 27 U/L (15-37) Alanine Aminotransferase (ALT/SGPT) 15 U/L (16-63) Alkaline Phosphatase 69 U/L (46-116) Total Protein 6.0 g/dL (6.4-8.2) Albumin 2.2 g/dL (3.4-5.0) Albumin/Globulin Ratio 0.6 (1.0-1.7) Triglycerides Level 69 mg/dL (0-150) Microbiology 09/12/18 Blood Culture - Preliminary, Resulted NO GROWTH AFTER 3 DAYS 09/13/18 Urine Culture - Final, Complete 09/13/18 Urine Culture Result 1 (MOI) - Final, Complete Medications Current Medications Piperacillin Sod/ Tazobactam Sod 4.5 gm/Sodium Chloride 100 ml @ 200 mls/hr 1X ONCE IV Last administered on 09/12/18at 03:03; Start 09/12/18 at 02:30; Stop 09/12/18 at 02:59; Status DC Vancomycin HCl (Vanco Per Pharmacy) 1 each PRN DAILY PRN MC SEE COMMENTS Last administered on 09/12/18at 05:25; Start 09/12/18 at 02:15; Stop 09/12/18 at 13:38; Status DC Sodium Chloride 1,000 ml @ 1,000 mls/hr 1X ONCE IV Last administered on 09/12/18at 03:02; Start 09/12/18 at 02:30; Stop 09/12/18 at 03:29; Status DC Acetaminophen (Tylenol) 1,000 mg 1X ONCE PO Last administered on 09/12/18at 03:11; Start 09/12/18 at 02:30; Stop 09/12/18 at 02:31; Status DC Vancomycin HCl 2 gm/Sodium Chloride 500 ml @ 250 mls/hr 1X ONCE IV Last administered on 09/12/18at 04:59; Start 09/12/18 at 03:30; Stop 09/12/18 at 05:29; Status DC Sodium Chloride 2,340 ml @ 2,340 mls/hr Q1H IV Last administered on 09/12/18at 03:02; Start 09/12/18 at 02:47; Stop 09/12/18 at 03:06; Status DC Ondansetron HCl (Zofran) 4 mg PRN Q8HRS PRN IV NAUSEA/VOMITING 1ST CHOICE; Start 09/12/18 at 03:00; Stop 09/13/18 at 02:59; Status DC Albuterol/ Ipratropium (Duoneb) 3 ml RTQID NEB Last administered on 09/13/18at 15:52; Start 09/12/18 at 08:00; Stop 09/13/18 at 07:59; Status DC Sodium Chloride 1,000 ml @ 1,000 mls/hr Q1H IV Last administered on 09/12/18at 04:06; Start 09/12/18 at 03:06; Stop 09/12/18 at 04:40; Status DC Acetaminophen/ Hydrocodone Bitart (Lortab 5/325) 7.5 tab PRN Q6HRS PRN PO MODERATE PAIN; Start 09/12/18 at 04:30; Stop 09/12/18 at 04:46; Status DC Lactobacillus Rhamnosus (Culturelle) 1 cap BID PO Last administered on 09/12/18at 08:22; Start 09/12/18 at 09:00 Acetaminophen/ Hydrocodone Bitart (Lortab 5/325) 1 tab PRN Q6HRS PRN PO MODERATE PAIN Last administered on 09/12/18at 04:54; Start 09/12/18 at 04:46 Vancomycin HCl 1.25 gm/Sodium Chloride 250 ml @ 167 mls/hr Q18H IV ; Start 09/12/18 at 23:00; Stop 09/12/18 at 23:00; Status DC Vancomycin HCl (Vancomycin Trough Level) 1 each 1X ONCE MC ; Start 09/13/18 at 16:30; Stop 09/13/18 at 16:30; Status DC Furosemide (Lasix) 40 mg 1X ONCE IVP Last administered on 09/12/18at 13:36; Start 09/12/18 at 12:45; Stop 09/12/18 at 12:46; Status DC Potassium Chloride (Klor-Con) 40 meq 1X ONCE PO Last administered on 09/12/18at 13:36; Start 09/12/18 at 12:45; Stop 09/12/18 at 12:46; Status DC Piperacillin Sod/ Tazobactam Sod 3.375 gm/Sodium Chloride 50 ml @ 100 mls/hr Q6HRS IV Last administered on 09/13/18at 05:37; Start 09/12/18 at 14:00; Stop 09/13/18 at 10:14; Status DC Aspirin (Children'S Aspirin) 81 mg BID PO ; Start 09/12/18 at 21:00 Atorvastatin Calcium (Lipitor) 40 mg QHS PO ; Start 09/12/18 at 21:00 Digoxin (Lanoxin) 125 mcg DAILY PO Last administered on 09/12/18at 15:29; Start 09/12/18 at 15:00 Metoprolol Tartrate (Lopressor) 100 mg DAILY PO Last administered on 09/12/18at 15:28; Start 09/12/18 at 15:00; Stop 09/13/18 at 12:48; Status DC Warfarin Sodium (Coumadin) 5 mg [id number] PO Last administered on 09/12/18at 15:28; Start 09/12/18 at 16:00; Stop 09/14/18 at 14:06; Status DC Warfarin Sodium (Coumadin) 7.5 mg We PO ; Start 09/18/18 at 16:00; Stop 09/18/18 at 16:00; Status DC Magnesium Sulfate 50 ml @ 25 mls/hr 1X ONCE IV Last administered on 09/12/18at 15:32; Start 09/12/18 at 15:00; Stop 09/12/18 at 16:59; Status DC Warfarin Sodium (Coumadin Per Physician) 1 each PRN DAILY PRN MC SEE COMMENTS Last administered on 09/13/18at 14:43; Start 09/12/18 at 15:15; Stop 09/14/18 at 12:14; Status DC Diltiazem HCl 125 mg/Dextrose 125 ml @ 5 mls/hr CONT PRN IV SEE I/O RECORD; Start 09/12/18 at 19:15 Sodium Chloride 1,000 ml @ 999 mls/hr 1X ONCE IV Last administered on 09/12/18at 20:16; Start 09/12/18 at 20:15; Stop 09/12/18 at 21:15; Status DC Meropenem 500 mg/ Sodium Chloride 50 ml @ 100 mls/hr Q6HRS IV Last administered on 09/15/18at 17:39; Start 09/13/18 at 12:00 Micafungin Sodium 100 mg/Dextrose 100 ml @ 100 mls/hr Q24H IV Last administered on 09/15/18at 12:39; Start 09/13/18 at 12:00 Linezolid (Zyvox) 600 mg BID PO ; Start 09/13/18 at 10:15; Stop 09/13/18 at 10:17; Status DC Linezolid/Dextrose 300 ml @ 300 mls/hr Q12HR IV Last administered on 09/15/18at 08:56; Start 09/13/18 at 10:30 Metoprolol Tartrate (Lopressor Vial) 5 mg Q6HRS IVP Last administered on 09/15/18at 17:38; Start 09/13/18 at 13:00 Sodium Chloride 1,000 ml @ 60 mls/hr 1X ONCE IV Last administered on 09/13/18at 13:45; Start 09/13/18 at 13:00; Stop 09/14/18 at 05:39; Status DC Amino Acids/ Glycerin/ Electrolytes 1,000 ml @ 80 mls/hr [id number] IV Last administered on 09/13/18at 17:43; Start 09/13/18 at 14:00; Stop 09/14/18 at 22:00; Status DC Furosemide (Lasix) 40 mg 1X ONCE IVP Last administered on 09/13/18at 16:10; Start 09/13/18 at 14:30; Stop 09/13/18 at 14:31; Status DC Barium Sulfate (Varibar Thin Liquid Apple) 148 gm 1X ONCE PO ; Start 09/13/18 at 14:15; Stop 09/13/18 at 14:21; Status DC Fluocinonide (Lidex) 1 mihaela BID TP Last administered on 09/15/18at 08:57; Start 09/13/18 at 15:00 Tamsulosin HCl (Flomax) 0.4 mg DAILY PO ; Start 09/13/18 at 15:00 Albuterol/ Ipratropium (Duoneb) 3 ml RTQID NEB Last administered on 09/15/18at 15:55; Start 09/13/18 at 08:00 Info (Tpn Per Pharmacy) 1 each PRN DAILY PRN MC SEE COMMENTS Last administered on 09/15/18at 13:10; Start 09/14/18 at 12:15 Saliva Substitute (Biotene Moisturizing Mouth) 2 spray PRN Q15MIN PRN PO DRY MOUTH Last administered on 09/14/18 21:06; Start 09/14/18 at 12:15 Clotrimazole (Mycelex) 10 mg 5XDAY MM Last administered on 09/15/18at 17:40; Start 09/14/18 at 14:00; Stop 09/16/18 at 08:00 Warfarin Sodium (Coumadin Per Pharmacy) 1 each PRN DAILY PRN MC SEE COMMENTS; Start 09/14/18 at 12:15; Stop 09/14/18 at 14:05; Status DC Enoxaparin Sodium (Lovenox Per Pharmacy Treatment Dosing) 1 each PRN DAILY PRN MC SEE COMMENTS; Start 09/14/18 at 14:15 Potassium Phosphate 13.6 mmol/Dextrose 104.5333 ml @ 52.267 m... 1X ONCE IV ; Start 09/14/18 at 16:00; Stop 09/14/18 at 17:59; Status Cancel Sodium Chloride 45 meq/Sodium Acetate 45 meq/ Potassium Chloride 25 meq/ Potassium Acetate 25 meq/Potassium Phosphate 20.4 mmol/Magnesium Sulfate 10 meq/ Multivitamins 10 ml/Chromium/ Copper/Manganese/ Seleni/Zn 1 ml/ Total Parenteral Nutrition/Amino Acids/Dextrose/ Fat Emulsion Intravenous 1,512 ml @ 63 mls/hr TPN CONT IV Last administered on 09/14/18at 21:21; Start 09/14/18 at 22:00; Stop 09/15/18 at 21:59 Potassium Chloride/Water 100 ml @ 100 mls/hr Q1H IV Last administered on 09/14/18at 21:23; Start 09/14/18 at 16:00; Stop 09/14/18 at 19:59; Status DC Dextrose (Dextrose 50%-Water Syringe) 12.5 gm PRN Q15MIN PRN IV SEE COMMENTS; Start 09/14/18 at 18:30 Diclofenac Sodium (Voltaren) 1 mihaela PRN BID PRN TP KNEE PAIN Last administered on 09/15/18at 08:59; Start 09/15/18 at 02:00 Acetaminophen (Tylenol Supp) 325 mg PRN Q6HRS PRN MI MILD PAIN / TEMP; Start 09/15/18 at 11:30 Sodium Chloride 45 meq/Sodium Acetate 10 meq/ Sodium Phosphate 15 mmol/Potassium Chloride 25 meq/ Potassium Acetate 25 meq/Potassium Phosphate 20.4 mmol/Magnesium Sulfate 10 meq/ Multivitamins 10 ml/Chromium/ Copper/Manganese/ Seleni/Zn 1 ml/ Total Parenteral Nutrition/Amino Acids/Dextrose/ Fat Emuls... 1,512 ml @ 63 mls/hr TPN CONT IV ; Start 09/15/18 at 22:00; Stop 09/16/18 at 21:59 Active Scripts Active Reported Colace (Docusate Sodium) 100 Mg Capsule 1 Cap PO TID Metamucil Powder (Psyllium Seed (with Sugar)) 575 Gm Powder 575 Gm PO DAILY [place] 5-325 Tablet (Acetaminophen/Hydrocodone Bitart) 1 Each Tablet 7.5 Mg PO PRN Q6HRS PRN LAST DOSE GIVEN: Atorvastatin Calcium 40 Mg Tablet 1 Tab PO DAILY Metoprolol Tartrate 100 Mg Tablet 100 Mg PO DAILY Tamsulosin Hcl 0.4 Mg Cap.er.24h 0.4 Mg PO HS DAILY Vitamin C (Ascorbic Acid) 500 Mg Tablet 250 Mg PO DAILY Warfarin Sodium 5 Mg Tablet 1.5 Tab PO QWE Warfarin Sodium 5 Mg Tablet 1 Tab PO DAILY EXCEPT SUN. Aspirin 81 Mg Tab.chew 81 Mg PO BID Lanoxin (Digoxin) 125 Mcg Tablet 125 Mcg PO DAILY Vitals/I & O Vital Sign - Last 24 Hours 09/14/18 09/14/18 09/14/18 09/14/18 18:08 18:28 19:00 20:00 Temp 99.0 99.0 Pulse 90 82 Resp 18 B/P (MAP) 131/71 133/70 (91) Pulse Ox 96 O2 Delivery Nasal Cannula Nasal Cannula Nasal Cannula O2 Flow Rate 2.0 1.0 2.0 09/14/18 09/15/18 09/15/18 09/15/18 22:53 01:19 02:51 06:29 Temp 97.6 98.3 97.6 98.3 Pulse 86 86 92 92 Resp 20 18 B/P (MAP) 137/78 (97) 137/78 142/73 (96) 142/73 Pulse Ox 98 97 O2 Delivery Nasal Cannula Nasal Cannula O2 Flow Rate 2.0 2.0 09/15/18 09/15/18 09/15/18 09/15/18 07:00 07:21 08:00 10:30 Temp 100.7 98.5 100.7 98.5 Pulse 94 90 Resp 18 18 B/P (MAP) 128/72 (90) 151/83 (105) Pulse Ox 97 97 97 O2 Delivery Nasal Cannula Nasal Cannula Room Air Room Air O2 Flow Rate 2.0 2.0 2.0 09/15/18 09/15/18 09/15/18 09/15/18 11:46 11:53 15:00 15:55 Temp 99.3 99.3 Pulse 90 86 B/P (MAP) 151/83 125/71 (89) Pulse Ox 96 92 O2 Delivery Room Air Room Air Room Air 09/15/18 17:38 Pulse 86 B/P (MAP) 125/71 Intake and Output 09/14/18 09/14/18 09/15/18 15:00 23:00 07:00 Intake Total 0 ml 1400 ml Balance 0 ml 1400 ml RADHA CALERO MD Sep 15, 2018 17:48
[2018-09-15 19:00] VITALS: BP 110/68
[2018-09-15] MEDS: ATORVASTATIN CALCIUM 40 MG TABLET. PO SCH (20:41)
[2018-09-15] MEDS ORDERED: AMINO ACID IV SCH ×12 (22:00)
[2018-09-15] MEDS ORDERED: TOTAL PARENTERAL NUTRITION IV SCH ×12 (22:00)
[2018-09-15] MEDS ORDERED: [UNRECOGNIZED DRUG - OTHER] IV SCH ×12 (22:00)
[2018-09-15] MEDS ORDERED: DEXTROSE 70% IV SCH ×12 (22:00)
[2018-09-15 22:25] VITALS: BP 96/60
[2018-09-16 03:40] VITALS: BP 108/70
[2018-09-16 04:43] LABS: PROTHROMBIN TIME PATIENT 21.7 SEC (11.7-14.0)
[2018-09-16] MEDS: METOPROLOL TARTRATE 5 MG/5 ML VIAL. IVP SCH ×4 (05:09→23:35)
[2018-09-16] MEDS: MEROPENEM 500 MG in IV NORMAL SALINE 50ML 50 ML IV SCH ×4 (05:09→23:34)
[2018-09-16] MEDS: CLOTRIMAZOLE 10 MG TROCHE. MM SCH (05:13)
[2018-09-16 05:23] LABS: CALCIUM 8.8 mg/dL (8.5-10.1); CREATININE 0.8 mg/dL (0.7-1.3); GFR 110.9; PHOSPHORUS 3.3 mg/dL (2.6-4.7); POTASSIUM 3.4 mmol/L (3.5-5.1)
[2018-09-16 07:07] VITALS: BP 114/66
--- NOTE | 2018-09-16 08:21 | PDOC ---
Infectious Disease Note Subjective Subjective feeling good says ROS ROS no n/v/d/sob knee is feeling better today Vital Sign Vital Signs Vital Signs Date Time Temp Pulse Resp B/P (MAP) Pulse Ox O2 Delivery O2 Flow Rate FiO2 09/16/18 07:07 98.6 65 20 114/66 (82) 93 Room Air 98.6 09/15/18 08:00 2.0 Physical Exam PHYSICAL EXAM GENERAL: Propped up in bed, alert, laughing HEENT: Pupils equal, Oral cavity, pharynx clear with some questionable dent ition. NECK: Supple, no JVD. LUNGS: Clear anteriorly, nonlabored HEART: S1, S2. Pacemaker without signs of complications. ABDOMEN: Positive bowel sounds, soft, nontender, left lower quadrant incision is well approximated, no drainage, erythema or warmth. EXTREMITIES: Without clubbing, cyanosis nor gross edema. SKIN: Warm to touch without signs of rash. NEUROLOGIC: Alert, seems little confused RUE-PICC (09/14) clean Labs Lab Laboratory Tests Test 09/15/18 17:50 09/16/18 04:25 09/16/18 06:51 Glucose (Fingerstick) 154 mg/dL (70-99) 170 mg/dL (70-99) Prothrombin Time 21.7 SEC (11.7-14.0) Prothromb Time International Ratio 1.9 (0.8-1.1) Sodium Level 142 mmol/L (136-145) Potassium Level 3.4 mmol/L (3.5-5.1) Chloride Level 107 mmol/L (98-107) Carbon Dioxide Level 27 mmol/L (21-32) Anion Gap 8 (6-14) Blood Urea Nitrogen 21 mg/dL (8-26) Creatinine 0.8 mg/dL (0.7-1.3) Estimated GFR (Cockcroft-Gault) 110.9 Glucose Level 126 mg/dL (70-99) Calcium Level 8.8 mg/dL (8.5-10.1) Phosphorus Level 3.3 mg/dL (2.6-4.7) Magnesium Level 2.0 mg/dL (1.8-2.4) Micro Microbiology 09/12/18 Blood Culture - Preliminary, Resulted NO GROWTH AFTER 4 DAYS 09/13/18 Urine Culture - Final, Complete 6/7/19 Urine Culture Result 1 (MOI) - Final, Complete Objective Assessment Fever, improved Bandemia Leukocytosis Possible UTI - c/o urinary complications prior to admit; yeast present S/p repair of incarcerated left inguinal hernia, had actually herniations on both sides of the cord structures at the internal inguinal ring 09/09 Acute on chronic diastolic HF; recent echo with preserved LV systolic function as noted above. CAD; catheterization 08/2018 with [employer], which is unchanged from previous cath in 2013. Stable CP free. Permanent AFIB; rate controlled. on warfarin for stroke prevention. INR 2.7, PPM Diabetes, II Dysphagia Plan Plan of Care cont meropenem, d/c zyvox and micafungin Probiotics Cultures neg so far Monitor WBC/temp Maintain aspiration precautions pt/ot D/w nursing AUSTIN TIJERINA MD Sep 16, 2018 08:21
[2018-09-16] MEDS: ASPIRIN CHEWABLE 81 MG TABLET. PO SCH ×2 (08:25→20:39)
[2018-09-16] MEDS: LACTOBACILLUS RHAMNOSUS GG 1 CAPSULE. PO SCH (08:25)
[2018-09-16] MEDS: DIGOXIN 125 MCG TABLET. PO SCH (08:25)
[2018-09-16] MEDS: TAMSULOSIN 0.4 MG CAP.ER.24H. PO SCH (08:25)
[2018-09-16] MEDS: FLUOCINONIDE 0.05% TOPICAL CREAM 15 GM TUBE. TP SCH ×3 (08:26→20:39)
--- NOTE | 2018-09-16 08:32 | PDOC ---
PROGRESS NOTES Chief Complaint Chief Complaint sepsis, UTI aspiration PNA Acute on chronic diastolic CHF; Hx CAD; htn, lipids, DM2, chronic diastolic CHF, with afib Permanent AFIB; rate controlled. on warfarin for stroke prevention dysphagia, acute urinary retention, phimosis weakness, acquired History of Present Illness History of Present Illness more alert, feels well today, voiding well still weak RUE swelling today TPN for nutrition he feels stronger, will repeat swallow eval this week PT and OT RUE US for DVT - he is on therapeutic anticoagulation, unclear what the plan will be if positive. Will d/w pulm Vitals Vitals Vital Signs Date Time Temp Pulse Resp B/P (MAP) Pulse Ox O2 Delivery O2 Flow Rate FiO2 09/16/18 07:07 98.6 65 20 114/66 (82) 93 Room Air 98.6 09/15/18 08:00 2.0 Physical Exam Physical Exam GENERAL: Propped up in bed, alert, laughing HEENT: Pupils equal, Oral cavity, pharynx clear with some questionable dentition. NECK: Supple, no JVD. LUNGS: Clear anteriorly, nonlabored HEART: S1, S2. Pacemaker without signs of complications. ABDOMEN: Positive bowel sounds, soft, nontender, left lower quadrant incision is well approximated, no drainage, erythema or warmth. EXTREMITIES: Without clubbing, cyanosis nor gross edema. SKIN: Warm to touch without signs of rash. NEUROLOGIC: Alert, seems little confused RUE-PICC (09/14) clean General: Alert, Oriented X3, Cooperative, No acute distress Heart: Regular rate, No murmurs Lungs: Crackles Extremities: No clubbing Skin: No rashes Labs LABS Laboratory Tests Test 09/15/18 17:50 09/16/18 04:25 09/16/18 06:51 Glucose (Fingerstick) 154 mg/dL (70-99) 170 mg/dL (70-99) Prothrombin Time 21.7 SEC (11.7-14.0) Prothromb Time International Ratio 1.9 (0.8-1.1) Sodium Level 142 mmol/L (136-145) Potassium Level 3.4 mmol/L (3.5-5.1) Chloride Level 107 mmol/L (98-107) Carbon Dioxide Level 27 mmol/L (21-32) Anion Gap 8 (6-14) Blood Urea Nitrogen 21 mg/dL (8-26) Creatinine 0.8 mg/dL (0.7-1.3) Estimated GFR (Cockcroft-Gault) 110.9 Glucose Level 126 mg/dL (70-99) Calcium Level 8.8 mg/dL (8.5-10.1) Phosphorus Level 3.3 mg/dL (2.6-4.7) Magnesium Level 2.0 mg/dL (1.8-2.4) Assessment and Plan Assessmemt and Plan Problems Medical Problems: (1) Pneumonia Status: Acute (2) Sepsis Status: Acute Comment Review of Relevant I have reviewed the following items tiffany (where applicable) has been applied. Labs Laboratory Tests Test 09/14/18 12:05 09/14/18 18:11 09/15/18 02:15 09/15/18 04:50 Glucose (Fingerstick) 81 mg/dL (70-99) 81 mg/dL (70-99) 107 mg/dL (70-99) White Blood Count 14.7 x10^3/uL (4.0-11.0) Red Blood Count 3.90 x10^6/uL (4.30-5.70) Hemoglobin 11.7 g/dL (13.0-17.5) Hematocrit 36.5 % (39.0-53.0) Mean Corpuscular Volume 94 fL (79-100) Mean Corpuscular Hemoglobin 30 pg (25-35) Mean Corpuscular Hemoglobin Concent 32 g/dL (31-37) Red Cell Distribution Width 15.6 % (11.5-14.5) Platelet Count 358 x10^3/uL (140-400) Neutrophils (%) (Auto) 92 % (31-73) Lymphocytes (%) (Auto) 6 % (24-48) Monocytes (%) (Auto) 3 % (0-9) Eosinophils (%) (Auto) 0 % (0-3) Basophils (%) (Auto) 0 % (0-3) Neutrophils # (Auto) 13.5 x10^3uL (1.8-7.7) Lymphocytes # (Auto) 0.8 x10^3/uL (1.0-4.8) Monocytes # (Auto) 0.4 x10^3/uL (0.0-1.1) Eosinophils # (Auto) 0.0 x10^3/uL (0.0-0.7) Basophils # (Auto) 0.0 x10^3/uL (0.0-0.2) Prothrombin Time 28.7 SEC (11.7-14.0) Prothromb Time International Ratio 2.7 (0.8-1.1) Sodium Level 143 mmol/L (136-145) Potassium Level 3.6 mmol/L (3.5-5.1) Chloride Level 107 mmol/L (98-107) Carbon Dioxide Level 28 mmol/L (21-32) Anion Gap 8 (6-14) Blood Urea Nitrogen 22 mg/dL (8-26) Creatinine 0.9 mg/dL (0.7-1.3) Estimated GFR (Cockcroft-Gault) 96.8 BUN/Creatinine Ratio 24 (6-20) Glucose Level 159 mg/dL (70-99) Calcium Level 9.2 mg/dL (8.5-10.1) Phosphorus Level 2.3 mg/dL (2.6-4.7) Magnesium Level 1.9 mg/dL (1.8-2.4) Total Bilirubin 1.9 mg/dL (0.2-1.0) Aspartate Amino Transf (AST/SGOT) 27 U/L (15-37) Alanine Aminotransferase (ALT/SGPT) 15 U/L (16-63) Alkaline Phosphatase 69 U/L (46-116) Total Protein 6.0 g/dL (6.4-8.2) Albumin 2.2 g/dL (3.4-5.0) Albumin/Globulin Ratio 0.6 (1.0-1.7) Triglycerides Level 69 mg/dL (0-150) Test 09/15/18 17:50 09/16/18 04:25 09/16/18 06:51 Glucose (Fingerstick) 154 mg/dL (70-99) 170 mg/dL (70-99) Prothrombin Time 21.7 SEC (11.7-14.0) Prothromb Time International Ratio 1.9 (0.8-1.1) Sodium Level 142 mmol/L (136-145) Potassium Level 3.4 mmol/L (3.5-5.1) Chloride Level 107 mmol/L (98-107) Carbon Dioxide Level 27 mmol/L (21-32) Anion Gap 8 (6-14) Blood Urea Nitrogen 21 mg/dL (8-26) Creatinine 0.8 mg/dL (0.7-1.3) Estimated GFR (Cockcroft-Gault) 110.9 Glucose Level 126 mg/dL (70-99) Calcium Level 8.8 mg/dL (8.5-10.1) Phosphorus Level 3.3 mg/dL (2.6-4.7) Magnesium Level 2.0 mg/dL (1.8-2.4) Laboratory Tests Test 09/15/18 17:50 09/16/18 04:25 09/16/18 06:51 Glucose (Fingerstick) 154 mg/dL (70-99) 170 mg/dL (70-99) Prothrombin Time 21.7 SEC (11.7-14.0) Prothromb Time International Ratio 1.9 (0.8-1.1) Sodium Level 142 mmol/L (136-145) Potassium Level 3.4 mmol/L (3.5-5.1) Chloride Level 107 mmol/L (98-107) Carbon Dioxide Level 27 mmol/L (21-32) Anion Gap 8 (6-14) Blood Urea Nitrogen 21 mg/dL (8-26) Creatinine 0.8 mg/dL (0.7-1.3) Estimated GFR (Cockcroft-Gault) 110.9 Glucose Level 126 mg/dL (70-99) Calcium Level 8.8 mg/dL (8.5-10.1) Phosphorus Level 3.3 mg/dL (2.6-4.7) Magnesium Level 2.0 mg/dL (1.8-2.4) Microbiology 09/12/18 Blood Culture - Preliminary, Resulted NO GROWTH AFTER 4 DAYS 09/13/18 Urine Culture - Final, Complete 09/13/18 Urine Culture Result 1 (MOI) - Final, Complete Medications Current Medications Piperacillin Sod/ Tazobactam Sod 4.5 gm/Sodium Chloride 100 ml @ 200 mls/hr 1X ONCE IV Last administered on 09/12/18at 03:03; Start 09/12/18 at 02:30; Stop 09/12/18 at 02:59; Status DC Vancomycin HCl (Vanco Per Pharmacy) 1 each PRN DAILY PRN MC SEE COMMENTS Last administered on 09/12/18at 05:25; Start 09/12/18 at 02:15; Stop 09/12/18 at 13:38; Status DC Sodium Chloride 1,000 ml @ 1,000 mls/hr 1X ONCE IV Last administered on 09/12/18at 03:02; Start 09/12/18 at 02:30; Stop 09/12/18 at 03:29; Status DC Acetaminophen (Tylenol) 1,000 mg 1X ONCE PO Last administered on 09/12/18at 03:11; Start 09/12/18 at 02:30; Stop 09/12/18 at 02:31; Status DC Vancomycin HCl 2 gm/Sodium Chloride 500 ml @ 250 mls/hr 1X ONCE IV Last administered on 09/12/18at 04:59; Start 09/12/18 at 03:30; Stop 09/12/18 at 05:29; Status DC Sodium Chloride 2,340 ml @ 2,340 mls/hr Q1H IV Last administered on 09/12/18at 03:02; Start 09/12/18 at 02:47; Stop 09/12/18 at 03:06; Status DC Ondansetron HCl (Zofran) 4 mg PRN Q8HRS PRN IV NAUSEA/VOMITING 1ST CHOICE; Start 09/12/18 at 03:00; Stop 09/13/18 at 02:59; Status DC Albuterol/ Ipratropium (Duoneb) 3 ml RTQID NEB Last administered on 09/13/18at 15:52; Start 09/12/18 at 08:00; Stop 09/13/18 at 07:59; Status DC Sodium Chloride 1,000 ml @ 1,000 mls/hr Q1H IV Last administered on 09/12/18at 04:06; Start 09/12/18 at 03:06; Stop 09/12/18 at 04:40; Status DC Acetaminophen/ Hydrocodone Bitart (Lortab 5/325) 7.5 tab PRN Q6HRS PRN PO MODERATE PAIN; Start 09/12/18 at 04:30; Stop 09/12/18 at 04:46; Status DC Lactobacillus Rhamnosus (Culturelle) 1 cap BID PO Last administered on 09/12/18at 08:22; Start 09/12/18 at 09:00 Acetaminophen/ Hydrocodone Bitart (Lortab 5/325) 1 tab PRN Q6HRS PRN PO MODERATE PAIN Last administered on 09/12/18at 04:54; Start 09/12/18 at 04:46 Vancomycin HCl 1.25 gm/Sodium Chloride 250 ml @ 167 mls/hr Q18H IV ; Start 09/12/18 at 23:00; Stop 09/12/18 at 23:00; Status DC Vancomycin HCl (Vancomycin Trough Level) 1 each 1X ONCE MC ; Start 09/13/18 at 16:30; Stop 09/13/18 at 16:30; Status DC Furosemide (Lasix) 40 mg 1X ONCE IVP Last administered on 09/12/18at 13:36; Start 09/12/18 at 12:45; Stop 09/12/18 at 12:46; Status DC Potassium Chloride (Klor-Con) 40 meq 1X ONCE PO Last administered on 09/12/18at 13:36; Start 09/12/18 at 12:45; Stop 09/12/18 at 12:46; Status DC Piperacillin Sod/ Tazobactam Sod 3.375 gm/Sodium Chloride 50 ml @ 100 mls/hr Q6HRS IV Last administered on 09/13/18at 05:37; Start 09/12/18 at 14:00; Stop 09/13/18 at 10:14; Status DC Aspirin (Children'S Aspirin) 81 mg BID PO ; Start 09/12/18 at 21:00 Atorvastatin Calcium (Lipitor) 40 mg QHS PO ; Start 09/12/18 at 21:00 Digoxin (Lanoxin) 125 mcg DAILY PO Last administered on 09/12/18at 15:29; Start 09/12/18 at 15:00 Metoprolol Tartrate (Lopressor) 100 mg DAILY PO Last administered on 09/12/18at 15:28; Start 09/12/18 at 15:00; Stop 09/13/18 at 12:48; Status DC Warfarin Sodium (Coumadin) 5 mg [id number] PO Last administered on 09/12/18at 15:28; Start 09/12/18 at 16:00; Stop 09/14/18 at 14:06; Status DC Warfarin Sodium (Coumadin) 7.5 mg We PO ; Start 09/18/18 at 16:00; Stop 09/18/18 at 16:00; Status DC Magnesium Sulfate 50 ml @ 25 mls/hr 1X ONCE IV Last administered on 09/12/18at 15:32; Start 09/12/18 at 15:00; Stop 09/12/18 at 16:59; Status DC Warfarin Sodium (Coumadin Per Physician) 1 each PRN DAILY PRN MC SEE COMMENTS Last administered on 09/13/18at 14:43; Start 09/12/18 at 15:15; Stop 09/14/18 at 12:14; Status DC Diltiazem HCl 125 mg/Dextrose 125 ml @ 5 mls/hr CONT PRN IV SEE I/O RECORD; Start 09/12/18 at 19:15 Sodium Chloride 1,000 ml @ 999 mls/hr 1X ONCE IV Last administered on 09/12/18at 20:16; Start 09/12/18 at 20:15; Stop 09/12/18 at 21:15; Status DC Meropenem 500 mg/ Sodium Chloride 50 ml @ 100 mls/hr Q6HRS IV Last administered on 09/16/18at 05:09; Start 09/13/18 at 12:00 Micafungin Sodium 100 mg/Dextrose 100 ml @ 100 mls/hr Q24H IV Last administered on 09/15/18at 12:39; Start 09/13/18 at 12:00; Stop 09/16/18 at 08:20; Status DC Linezolid (Zyvox) 600 mg BID PO ; Start 09/13/18 at 10:15; Stop 09/13/18 at 10:17; Status DC Linezolid/Dextrose 300 ml @ 300 mls/hr Q12HR IV Last administered on 09/15/18at 20:39; Start 09/13/18 at 10:30; Stop 09/16/18 at 08:20; Status DC Metoprolol Tartrate (Lopressor Vial) 5 mg Q6HRS IVP Last administered on 09/16/18at 05:09; Start 09/13/18 at 13:00 Sodium Chloride 1,000 ml @ 60 mls/hr 1X ONCE IV Last administered on 09/13/18at 13:45; Start 09/13/18 at 13:00; Stop 09/14/18 at 05:39; Status DC Amino Acids/ Glycerin/ Electrolytes 1,000 ml @ 80 mls/hr [id number] IV Last administered on 09/13/18 17:43; Start 09/13/18 at 14:00; Stop 09/14/18 at 22:00; Status DC Furosemide (Lasix) 40 mg 1X ONCE IVP Last administered on 09/13/18 16:10; Start 09/13/18 at 14:30; Stop 09/13/18 at 14:31; Status DC Barium Sulfate (Varibar Thin Liquid Apple) 148 gm 1X ONCE PO ; Start 09/13/18 at 14:15; Stop 09/13/18 at 14:21; Status DC Fluocinonide (Lidex) 1 mihaela BID TP Last administered on 09/15/18at 20:41; Start 09/13/18 at 15:00 Tamsulosin HCl (Flomax) 0.4 mg DAILY PO ; Start 09/13/18 at 15:00 Albuterol/ Ipratropium (Duoneb) 3 ml RTQID NEB Last administered on 09/15/18at 19:46; Start 09/13/18 at 08:00 Info (Tpn Per Pharmacy) 1 each PRN DAILY PRN MC SEE COMMENTS Last administered on 09/15/18at 13:10; Start 09/14/18 at 12:15 Saliva Substitute (Biotene Moisturizing Mouth) 2 spray PRN Q15MIN PRN PO DRY MOUTH Last administered on 09/14/18at 21:06; Start 09/14/18 at 12:15 Clotrimazole (Mycelex) 10 mg 5XDAY MM Last administered on 09/16/18at 05:13; Start 09/14/18 at 14:00; Stop 09/16/18 at 08:02; Status DC Warfarin Sodium (Coumadin Per Pharmacy) 1 each PRN DAILY PRN MC SEE COMMENTS; Start 09/14/18 at 12:15; Stop 09/14/18 at 14:05; Status DC Enoxaparin Sodium (Lovenox Per Pharmacy Treatment Dosing) 1 each PRN DAILY PRN MC SEE COMMENTS; Start 09/14/18 at 14:15 Potassium Phosphate 13.6 mmol/Dextrose 104.5333 ml @ 52.267 m... 1X ONCE IV ; Start 09/14/18 at 16:00; Stop 09/14/18 at 17:59; Status Cancel Sodium Chloride 45 meq/Sodium Acetate 45 meq/ Potassium Chloride 25 meq/ Potassium Acetate 25 meq/Potassium Phosphate 20.4 mmol/Magnesium Sulfate 10 meq/ Multivitamins 10 ml/Chromium/ Copper/Manganese/ Seleni/Zn 1 ml/ Total Parenteral Nutrition/Amino Acids/Dextrose/ Fat Emulsion Intravenous 1,512 ml @ 63 mls/hr TPN CONT IV Last administered on 09/14/18at 21:21; Start 09/14/18 at 22:00; Stop 09/15/18 at 21:59; Status DC Potassium Chloride/Water 100 ml @ 100 mls/hr Q1H IV Last administered on 09/14/18at 21:23; Start 09/14/18 at 16:00; Stop 09/14/18 at 19:59; Status DC Dextrose (Dextrose 50%-Water Syringe) 12.5 gm PRN Q15MIN PRN IV SEE COMMENTS; Start 09/14/18 at 18:30 Diclofenac Sodium (Voltaren) 1 mihaela PRN BID PRN TP KNEE PAIN Last administered on 09/15/18at 08:59; Start 09/15/18 at 02:00 Acetaminophen (Tylenol Supp) 325 mg PRN Q6HRS PRN LA MILD PAIN / TEMP; Start 09/15/18 at 11:30 Sodium Chloride 45 meq/Sodium Acetate 10 meq/ Sodium Phosphate 15 mmol/Potassium Chloride 25 meq/ Potassium Acetate 25 meq/Potassium Phosphate 20.4 mmol/Magnesium Sulfate 10 meq/ Multivitamins 10 ml/Chromium/ Copper/Manganese/ Seleni/Zn 1 ml/ Total Parenteral Nutrition/Amino Acids/Dextrose/ Fat Emuls... 1,512 ml @ 63 mls/hr TPN CONT IV Last administered on 09/15/18at 20:39; Start 09/15/18 at 22:00; Stop 09/16/18 at 21:59 Active Scripts Active Reported Colace (Docusate Sodium) 100 Mg Capsule 1 Cap PO TID Metamucil Powder (Psyllium Seed (with Sugar)) 575 Gm Powder 575 Gm PO DAILY [place] 5-325 Tablet (Acetaminophen/Hydrocodone Bitart) 1 Each Tablet 7.5 Mg PO PRN Q6HRS PRN LAST DOSE GIVEN: Atorvastatin Calcium 40 Mg Tablet 1 Tab PO DAILY Metoprolol Tartrate 100 Mg Tablet 100 Mg PO DAILY Tamsulosin Hcl 0.4 Mg Cap.er.24h 0.4 Mg PO HS DAILY Vitamin C (Ascorbic Acid) 500 Mg Tablet 250 Mg PO DAILY Warfarin Sodium 5 Mg Tablet 1.5 Tab PO QWE Warfarin Sodium 5 Mg Tablet 1 Tab PO DAILY EXCEPT SUN. Aspirin 81 Mg Tab.chew 81 Mg PO BID Lanoxin (Digoxin) 125 Mcg Tablet 125 Mcg PO DAILY Vitals/I & O Vital Sign - Last 24 Hours 09/15/18 09/15/18 09/15/18 09/15/18 10:30 11:46 11:53 15:00 Temp 98.5 99.3 98.5 99.3 Pulse 90 90 86 Resp 18 B/P (MAP) 151/83 (105) 151/83 125/71 (89) Pulse Ox 97 96 O2 Delivery Room Air Room Air Room Air 09/15/18 09/15/18 09/15/18 09/15/18 15:55 17:38 19:00 19:15 Temp 98.6 98.6 Pulse 86 71 B/P (MAP) 125/71 110/68 (82) Pulse Ox 92 100 O2 Delivery Room Air Room Air Room Air 09/15/18 09/15/18 09/15/18 09/16/18 19:47 22:25 23:29 03:40 Temp 97.6 97.9 97.6 97.9 Pulse 82 82 80 Resp 20 20 B/P (MAP) 96/60 (72) 96/60 108/70 (83) Pulse Ox 94 94 94 O2 Delivery Room Air Room Air Room Air 09/16/18 09/16/18 05:09 07:07 Temp 98.6 98.6 Pulse 80 65 Resp 20 B/P (MAP) 108/70 114/66 (82) Pulse Ox 93 O2 Delivery Room Air Intake and Output 09/15/18 09/15/18 09/16/18 15:00 23:00 07:00 Intake Total 0 ml 0 ml Balance 0 ml 0 ml RANDALL CLARK MD Sep 16, 2018 08:32
[2018-09-16] MEDS: IPRATRPIUM/ALBUTEROL 0.5/2.5MG 3 ML NEBU. NEB SCH ×4 (08:47→20:06)
[2018-09-16] MEDS ORDERED: POTASSIUM CHLORIDE 10MEQ 100 ML IV SCH (09:00)
--- NOTE | 2018-09-16 09:25 | PDOC ---
GUSTAVO VILLEGAS COMMUNICATION CONSULTANT 09/16/18 0925: SUBJECTIVE Subjective Pt resting comfortably, reports no problems with urination. Not sure if steroid cream is working yet, but he hasn't had any problems from it. OBJECTIVE Objective Physical Exam: General appearance: Alert and Oriented Head: Normocephalic, without obvious abnormality Eyes: conjunctivae/corneas clear. PERRL, EOM's intact. Fundi benign Lungs: Regular respirations, non labored breathing Abdomen: soft, non-tender. Bowel sounds normal. No masses, no organomegaly Pelvic: tight phimosis. Pt urinating through opening with no difficulty, as he is incontinent. Vital Signs Vital Signs Date Time Temp Pulse Resp B/P (MAP) Pulse Ox O2 Delivery O2 Flow Rate FiO2 09/16/18 08:48 95 Room Air 09/16/18 07:07 98.6 65 20 114/66 (82) 93 Room Air 98.6 09/16/18 05:09 80 108/70 09/16/18 03:40 97.9 80 20 108/70 (83) 94 Room Air 97.9 09/15/18 23:29 82 96/60 09/15/18 22:25 97.6 82 20 96/60 (72) 94 Room Air 97.6 09/15/18 19:47 94 Room Air 09/15/18 19:15 Room Air 09/15/18 19:00 98.6 71 110/68 (82) 100 Room Air 98.6 09/15/18 17:38 86 125/71 09/15/18 15:55 92 Room Air 09/15/18 15:00 99.3 86 125/71 (89) 96 Room Air 99.3 09/15/18 11:53 Room Air 09/15/18 11:46 90 151/83 09/15/18 10:30 98.5 90 18 151/83 (105) 97 Room Air 98.5 I & O Intake and Output 09/16/18 07:00 Intake Total 0 ml Balance 0 ml Intake Oral 0 ml # Voids 6 # Bowel Movements 1 PHYSICAL EXAM Physical Exam Physical Exam: General appearance: Alert and Oriented Head: Normocephalic, without obvious abnormality Eyes: conjunctivae/corneas clear. PERRL, EOM's intact. Fundi benign Lungs: Regular respirations, non labored breathing Abdomen: soft, non-tender. Bowel sounds normal. No masses, no organomegaly Pelvic: tight phimosis. Pt urinating through opening with no difficulty, as he is incontinent. ASSESSMENT/PLAN Assessment/Plan Continue steroid cream as ordered. It can take some time for it to work, for noticeable improvement to occur. Please continue the Fluocinonide as an outpatient. As long as he continues to urinate, no need for catheterization. Bladder scan PRN suspected retention/patient complaints, but no need for serial scanning. Continue Flomax for incomplete bladder emptying A follow up appointment has been arranged for patient to see Dr. Bell on 10/17/18 at 11 am at [facility] location. Appointment card and new patient paperwork placed in chart. Will sign off for now, but please call with questions or changes in patient co ndition. COMMENT Lab Laboratory Tests Test 09/15/18 17:50 09/16/18 04:25 09/16/18 06:51 Glucose (Fingerstick) 154 mg/dL (70-99) 170 mg/dL (70-99) Prothrombin Time 21.7 SEC (11.7-14.0) Prothromb Time International Ratio 1.9 (0.8-1.1) Sodium Level 142 mmol/L (136-145) Potassium Level 3.4 mmol/L (3.5-5.1) Chloride Level 107 mmol/L (98-107) Carbon Dioxide Level 27 mmol/L (21-32) Anion Gap 8 (6-14) Blood Urea Nitrogen 21 mg/dL (8-26) Creatinine 0.8 mg/dL (0.7-1.3) Estimated GFR (Cockcroft-Gault) 110.9 Glucose Level 126 mg/dL (70-99) Calcium Level 8.8 mg/dL (8.5-10.1) Phosphorus Level 3.3 mg/dL (2.6-4.7) Magnesium Level 2.0 mg/dL (1.8-2.4) TYSHAWN BELL MD 09/16/18 1012: ASSESSMENT/PLAN Assessment/Plan Agree with assessment and plan. Steroid cream will take several weeks to work. F/U as outpatient. GUSTAVO VILLEGAS APRN Sep 16, 2018 09:25 TYSHAWN BELL MD Sep 16, 2018 10:12
--- NOTE | 2018-09-16 09:31 | PDOC ---
PULMONARY PROGRESS NOTES Subjective PT NOT SOA NO CHEST PAIN Vitals Vital Signs Date Time Temp Pulse Resp B/P (MAP) Pulse Ox O2 Delivery O2 Flow Rate FiO2 09/16/18 08:48 95 Room Air 09/16/18 07:07 98.6 65 20 114/66 (82) 98.6 09/15/18 08:00 2.0 ROS: No Nausea, No Chest Pain, No Abdominal Pain, No Increase Cough General: Alert HEENT: Other (nc at perrl) Lungs: Crackles Cardiovascular: S1, S2 Abdomen: Soft, Non-tender Neuro Exam: Alert Extremities: No Edema Skin: Warm Labs Laboratory Tests Test 09/14/18 12:05 09/14/18 18:11 09/15/18 02:15 09/15/18 04:50 Glucose (Fingerstick) 81 mg/dL (70-99) 81 mg/dL (70-99) 107 mg/dL (70-99) White Blood Count 14.7 x10^3/uL (4.0-11.0) Red Blood Count 3.90 x10^6/uL (4.30-5.70) Hemoglobin 11.7 g/dL (13.0-17.5) Hematocrit 36.5 % (39.0-53.0) Mean Corpuscular Volume 94 fL (79-100) Mean Corpuscular Hemoglobin 30 pg (25-35) Mean Corpuscular Hemoglobin Concent 32 g/dL (31-37) Red Cell Distribution Width 15.6 % (11.5-14.5) Platelet Count 358 x10^3/uL (140-400) Neutrophils (%) (Auto) 92 % (31-73) Lymphocytes (%) (Auto) 6 % (24-48) Monocytes (%) (Auto) 3 % (0-9) Eosinophils (%) (Auto) 0 % (0-3) Basophils (%) (Auto) 0 % (0-3) Neutrophils # (Auto) 13.5 x10^3uL (1.8-7.7) Lymphocytes # (Auto) 0.8 x10^3/uL (1.0-4.8) Monocytes # (Auto) 0.4 x10^3/uL (0.0-1.1) Eosinophils # (Auto) 0.0 x10^3/uL (0.0-0.7) Basophils # (Auto) 0.0 x10^3/uL (0.0-0.2) Prothrombin Time 28.7 SEC (11.7-14.0) Prothromb Time International Ratio 2.7 (0.8-1.1) Sodium Level 143 mmol/L (136-145) Potassium Level 3.6 mmol/L (3.5-5.1) Chloride Level 107 mmol/L (98-107) Carbon Dioxide Level 28 mmol/L (21-32) Anion Gap 8 (6-14) Blood Urea Nitrogen 22 mg/dL (8-26) Creatinine 0.9 mg/dL (0.7-1.3) Estimated GFR (Cockcroft-Gault) 96.8 BUN/Creatinine Ratio 24 (6-20) Glucose Level 159 mg/dL (70-99) Calcium Level 9.2 mg/dL (8.5-10.1) Phosphorus Level 2.3 mg/dL (2.6-4.7) Magnesium Level 1.9 mg/dL (1.8-2.4) Total Bilirubin 1.9 mg/dL (0.2-1.0) Aspartate Amino Transf (AST/SGOT) 27 U/L (15-37) Alanine Aminotransferase (ALT/SGPT) 15 U/L (16-63) Alkaline Phosphatase 69 U/L (46-116) Total Protein 6.0 g/dL (6.4-8.2) Albumin 2.2 g/dL (3.4-5.0) Albumin/Globulin Ratio 0.6 (1.0-1.7) Triglycerides Level 69 mg/dL (0-150) Test 09/15/18 17:50 09/16/18 04:25 09/16/18 06:51 Glucose (Fingerstick) 154 mg/dL (70-99) 170 mg/dL (70-99) Prothrombin Time 21.7 SEC (11.7-14.0) Prothromb Time International Ratio 1.9 (0.8-1.1) Sodium Level 142 mmol/L (136-145) Potassium Level 3.4 mmol/L (3.5-5.1) Chloride Level 107 mmol/L (98-107) Carbon Dioxide Level 27 mmol/L (21-32) Anion Gap 8 (6-14) Blood Urea Nitrogen 21 mg/dL (8-26) Creatinine 0.8 mg/dL (0.7-1.3) Estimated GFR (Cockcroft-Gault) 110.9 Glucose Level 126 mg/dL (70-99) Calcium Level 8.8 mg/dL (8.5-10.1) Phosphorus Level 3.3 mg/dL (2.6-4.7) Magnesium Level 2.0 mg/dL (1.8-2.4) Laboratory Tests Test 09/15/18 17:50 09/16/18 04:25 09/16/18 06:51 Glucose (Fingerstick) 154 mg/dL (70-99) 170 mg/dL (70-99) Prothrombin Time 21.7 SEC (11.7-14.0) Prothromb Time International Ratio 1.9 (0.8-1.1) Sodium Level 142 mmol/L (136-145) Potassium Level 3.4 mmol/L (3.5-5.1) Chloride Level 107 mmol/L (98-107) Carbon Dioxide Level 27 mmol/L (21-32) Anion Gap 8 (6-14) Blood Urea Nitrogen 21 mg/dL (8-26) Creatinine 0.8 mg/dL (0.7-1.3) Estimated GFR (Cockcroft-Gault) 110.9 Glucose Level 126 mg/dL (70-99) Calcium Level 8.8 mg/dL (8.5-10.1) Phosphorus Level 3.3 mg/dL (2.6-4.7) Magnesium Level 2.0 mg/dL (1.8-2.4) Medications Active Scripts Medications Dose Route/Sig Max Daily Dose Days Date Category Dose Instructions Colace (Docusate Sodium) 100 Mg Capsule 1 Cap PO TID 09/09/18 Reported Metamucil Powder (Psyllium Seed (with Sugar)) 575 Gm Powder 575 Gm PO DAILY 09/09/18 Reported [place] 5-325 Tablet (Acetaminophen/Hydrocodone Bitart) 1 Each Tablet 7.5 Mg PO PRN Q6HRS PRN 09/09/18 Reported LAST DOSE GIVEN: Atorvastatin Calcium 40 Mg Tablet 1 Tab PO DAILY 08/12/18 Reported Metoprolol Tartrate 100 Mg Tablet 100 Mg PO DAILY 11/08/17 Reported Tamsulosin Hcl 0.4 Mg Cap.er.24h 0.4 Mg PO HS DAILY 11/08/17 Reported Vitamin C (Ascorbic Acid) 500 Mg Tablet 250 Mg PO DAILY 05/08/14 Reported Warfarin Sodium 5 Mg Tablet 1.5 Tab PO QWE 04/18/14 Reported Warfarin Sodium 5 Mg Tablet 1 Tab PO DAILY EXCEPT WED. 04/18/14 Reported Aspirin 81 Mg Tab.chew 81 Mg PO BID 08/22/13 Reported Lanoxin (Digoxin) 125 Mcg Tablet 125 Mcg PO DAILY 08/22/[address] reviewed 1. Mixed interstitial and airspace infiltrates in both lungs, predominantly dependent. There is likely a component of pulmonary edema, as well as acute infiltrate or pneumonia. 2. 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 Appears similar to that report prior study. 3. Mild splenomegaly. 4. Gynecomastia. Impression . IMPRESSION: 1. Abnormal x-ray/ RECURRENT ASPIRATION 2. Respiratory insufficiency. 3. possible sepsis. 4. Coronary artery disease. 5. Secondary pulmonary hypertension. 6. Obstructive sleep apnea. 7. Acute on chronic diastolic heart failure. 8. Permanent atrial fibrillation along with sick sinus syndrome, status post pacemaker implantation. 9. dysphagia. abnl opv 10. low grade fever Plan . FOLLOW SPEECH INPUT, PT NEEDS PEG IN MY OPTION WILL CONSULT GI CONTINUE ANTI BX D/W PATIENT HE IS IN AGREEMENT BREN CARDOZO MD Sep 16, 2018 09:30
--- NOTE | 2018-09-16 09:49 | PDOC ---
BART PAZ PROCEDURE ANALYST 09/16/18 0949: CARDIO Progress Notes Date and Time Date of Service 09/16/18 Time of Evaluation 0940 Subjective Subjective: No Chest Pain, No shortness of breath, No Palpitations Vitals Vitals Vital Signs Date Time Temp Pulse Resp B/P (MAP) Pulse Ox O2 Delivery O2 Flow Rate FiO2 09/16/18 08:48 95 Room Air 09/16/18 07:07 98.6 65 20 114/66 (82) 98.6 09/15/18 08:00 2.0 Weight Weight [ ] Input and Output Intake and Output Intake and Output 09/16/18 06:59 Intake Total 0 ml Balance 0 ml Intake Oral 0 ml # Voids 6 # Bowel Movements 1 Laboratory Labs Laboratory Tests Test 09/15/18 17:50 09/16/18 04:25 09/16/18 06:51 Glucose (Fingerstick) 154 mg/dL (70-99) 170 mg/dL (70-99) Prothrombin Time 21.7 SEC (11.7-14.0) Prothromb Time International Ratio 1.9 (0.8-1.1) Sodium Level 142 mmol/L (136-145) Potassium Level 3.4 mmol/L (3.5-5.1) Chloride Level 107 mmol/L (98-107) Carbon Dioxide Level 27 mmol/L (21-32) Anion Gap 8 (6-14) Blood Urea Nitrogen 21 mg/dL (8-26) Creatinine 0.8 mg/dL (0.7-1.3) Estimated GFR (Cockcroft-Gault) 110.9 Glucose Level 126 mg/dL (70-99) Calcium Level 8.8 mg/dL (8.5-10.1) Phosphorus Level 3.3 mg/dL (2.6-4.7) Magnesium Level 2.0 mg/dL (1.8-2.4) Microbiology Micro Microbiology 09/12/18 Blood Culture - Preliminary, Resulted NO GROWTH AFTER 4 DAYS 09/13/18 Urine Culture - Final, Complete 09/13/18 Urine Culture Result 1 (MOI) - Final, Complete Physical Exam HEENT: Neck Supple W Full Motion Chest: Symmetric LUNGS: Other (faint basilar crackles) Heart: irregularly irregular (AFIB) Abdomen: Other (soft) Extremities: No Calf Tenderness, Other (1+ bilateral LE edema) Neurology: alert, oriented, follow commands Assessment Assessment 1. Fever/Leukocytosis with possible aspiration PNA and UTI. Treatment per ID team. 2. Acute on chronic diastolic CHF; recent echo with preserved LV systolic function as noted above. Improved with diuresis. 3. CAD; catheterization 08/2018 with SPORTS MARKETING SPECIALIST of LAD, which is unchanged from previous cath in 2013. clinically stable and chest pain-free 4. Permanent AFIB; rate controlled. rate well controlled with BB. on warfarin for stroke prevention. INR 1.9 5. 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) - recent device check showed normal function 6. Hypertension; continue current medical regimen 7. Hyperlipidemia; statin 8. Diabetes, II: Per IM 9. S/P incarcerated left inguinal hernia repair 10. Urinary retention: as per urology 11. Hypokalemia; replaced 12. Dysphagia; failed video swallow study Recommendations ST following- remains NPO IV metoprolol while NPO for rate control Lovenox while INR < 2.0 Supportive care from a CV standpoint. SHAWN PARKER MD 09/16/18 1003: CARDIO Progress Notes Assessment Assessment Patient seen and examined. Agree with DIRECTOR GLOBAL STRATEGIC PUBLISHER SALES's assessment and plan. Acute on chronic diastolic heart failure better compensated. Permanent atrial fibrillation rate controlled. CAD status clinically stable. Continue current medical regimen. BART PAZ APRN Sep 16, 2018 09:49 SHAWN PARKER MD Sep 16, 2018 10:03
[2018-09-16 10:50] VITALS: BP 127/60
[2018-09-16] MEDS: ANTI-COAG MONITOR BY PHARMACY. MC PRN (11:04)
--- NOTE | 2018-09-16 11:08 | RAD ---
Right upper extremity venous ultrasound, 09/16/2018: HISTORY: Right arm swelling, PICC line Duplex evaluation of the major veins in the right upper extremity was performed including grayscale, color-flow and spectral Doppler analysis. The right internal jugular, subclavian and axillary veins are patent. A PICC line is evident within the right subclavian and axillary veins. There is a small amount of echogenic material along the wall adjacent to the PICC line in the axillary vein, compatible with nonocclusive thrombus. The basilic, cephalic and paired brachial veins are patent. Patent radial and ulnar veins are evident. IMPRESSION: Small amount of nonocclusive thrombus adjacent to the PICC line in the right axillary vein. Note: The findings were called to the patient's nurse on the floor at 11:05 AM on 09/16/2018. Electronically signed by: Enoch Macias MD (09/16/2018 11:05 AM) [facility]
[2018-09-16] MEDS: POTASSIUM CHL 20MEQ PREMIX 50 ML IV SCH ×2 (13:25→14:27)
[2018-09-16] MEDS: TPN PER PHARMACY MC PRN (13:49)
--- NOTE | 2018-09-16 13:50 | NUR ---
Pharmacy TPN Dosing Note S: MAMTA MACIAS is a 87 year old M Currently receiving Central Continuous TPN started 09/14/18 B:Pertinent PMH: failed swallow study Height: 6 feet, 0 inches Weight: 91.901994 kg Current diet: npo LABS: Sodium: 142 Potassium: 3.4 Chloride: 107 Calcium: 8.8 Corrected Calcium: 10.24 Magnesium: 2.0 CO2: 28 SCr: 0.8 Glucose: 83-170 Albumin: 2.2 AST: 27 ALT: 15 TPN FORMULA: TPN TYPE: Central Continuous AMINO ACIDS: 60 gm DEXTROSE: 195 gm LIPIDS: 20 gm SODIUM CHLORIDE: 45 mEq SODIUM ACETATE: 10 mEq SODIUM PHOSPHATE: 15 mmol POTASSIUM CHLORIDE: 25 mEq POTASSIUM ACETATE: 55 mEq POTASSIUM PHOSPHATE: 20.4 mmol MAGNESIUM: 20 mEq CALCIUM: 0 mEq INSULIN: units MULTIPLE VITAMIN: 10 ml TRACE ELEMENTS: 1 ml ml(s) TPN PLAN: K 3.4 today, pt receiving 40 meq repletion per primary and will add 30 meq KAc to TPN. Mag low normal, will add 10 meq magnesium sulfate to TPN. No other changes, phos, mag, BMP in am. R: Continue TPN ABOVE. Will monitor electrolytes, glucose, and tolerance to TPN. AGUSTIN BAER [facility], 09/16/18 1350
--- NOTE | 2018-09-16 14:09 | NUR ---
SS following up with discharge planning. Pt remains NPO on TPN and IV antibiotics. PT/OT recommending fdc unit. SS met with pt to discuss fdc unit and discharge planning. Pt requesting to go to [facility], ; fax [phone], at discharge. Per notes pt will have swallow evaluation later this week. SS will await results of swallow evaluation and will proceed accordingly.
[2018-09-16 15:00] VITALS: BP 125/81
--- NOTE | 2018-09-16 16:06 | PDOC2 ---
GI CONSULT Reason For Consult: Dysphagia possible PEG HPI: HPI: Pleasant 87 y/o male admitted last week. Has abnormal chest imaging w/ concern for aspiration. Followed by pulmonology and speech. Had abnormal videoswallow last week w/ recommendation for NPO meds and nutrition. TEXTILE COLORIST FORMULATOR note indicates he will require non-oral nutrition for at least the immediate future. Has been on TPN and we are asked to see him re: possible PEG placement. Per RN, this was discussed with him this afternoon and he would like to proceed. He lives at home with his of 66 years but is currently alone in his room. Says he was eating and drinking normally prior to admission. Denies GERD. No h/o dysphagia. No n/v or abd pain. No diarrhea or constipation. No hematochezia or melena. Denies weight loss. I don't believe he has had previous EGD (?but does recall MIGUEL). Reports colonoscopy w/ polyps ~3 years ago w/ Dr. Stone - thinks done here at [facility]. S/p cholecystectomy - "probably" had stones. Denies pancreas, liver, and PUD history. Usually takes Coumadin and ASA - currently on Lovenox, INR is 1.9. PMH: PMH: A Fib, CAD (occluded LAD with retrograde filling via collaterals), CHF, HTN, HLD, COPD, USAMA, pulmonary hypertension, DM, colon polyps pacemaker, cholecystectomy, vein stripping, LIH repair FH: Family History: Cancer, DM, Hypertension, Other (Alzheimer's) Social History: Smoke: No ALCOHOL: none Drugs: None ROS: GEN: +fever HEENT: Denies blurred vision, sore throat CV: Denies chest pain RESP: +SOA +cough (better) GI: Per HPI : +difficulty urinating (better) ENDO: Denies weight changes NEURO: Denies confusion, dizziness MSK: Denies weakness, joint pain/swelling SKIN: Denies jaundice, pruritus Vitals: Vitals: Vital Signs Date Time Temp Pulse Resp B/P (MAP) Pulse Ox O2 Delivery O2 Flow Rate FiO2 09/16/18 15:00 98.2 82 20 125/81 (96) 93 Room Air 98.2 09/15/18 08:00 2.0 Labs: Labs: Laboratory Tests Test 09/15/18 17:50 09/16/18 04:25 09/16/18 06:51 09/16/18 12:10 Glucose (Fingerstick) 154 mg/dL (70-99) 170 mg/dL (70-99) 83 mg/dL (70-99) Prothrombin Time 21.7 SEC (11.7-14.0) Prothromb Time International Ratio 1.9 (0.8-1.1) Sodium Level 142 mmol/L (136-145) Potassium Level 3.4 mmol/L (3.5-5.1) Chloride Level 107 mmol/L (98-107) Carbon Dioxide Level 27 mmol/L (21-32) Anion Gap 8 (6-14) Blood Urea Nitrogen 21 mg/dL (8-26) Creatinine 0.8 mg/dL (0.7-1.3) Estimated GFR (Cockcroft-Gault) 110.9 Glucose Level 126 mg/dL (70-99) Calcium Level 8.8 mg/dL (8.5-10.1) Phosphorus Level 3.3 mg/dL (2.6-4.7) Magnesium Level 2.0 mg/dL (1.8-2.4) URINE CULTURE Final Final report URINE CULTURE RES 1 Final No growth BLOOD CULTURE Preliminary NO GROWTH AFTER 4 DAYS Allergies: Coded Allergies: No Known Drug Allergies (Unverified , 09/09/18) Self-report by patient Medications: Current Medications Medications (Trade) Dose Ordered Sig/Rakesh Route PRN Reason Start Time Stop Time Status Last Admin Dose Admin Sodium Chloride 45 meq/Sodium Acetate 10 meq/ Sodium Phosphate 15 mmol/Potassium Chloride 25 meq/ Potassium Acetate 25 meq/Potassium Phosphate 20.4 mmol/Magnesium Sulfate 10 meq/ Multivitamins 10 ml/Chromium/ Copper/Manganese/ Seleni/Zn 1 ml/ Total Parenteral Nutrition/Amino Acids/Dextrose/ Fat Emuls... 1,512 ml @ 63 mls/hr TPN CONT IV 09/15/18 22:00 09/16/18 21:59 09/15/18 20:39 Enoxaparin Sodium (Lovenox 100mg Syringe) 90 mg Q12HR SQ 09/16/18 11:30 09/16/18 12:24 Info (Anti-Coagulation Monitoring By Pharmacy) 1 each PRN DAILY PRN MC SEE COMMENTS 09/16/18 11:00 09/16/18 11:04 Potassium Chloride/Water 50 ml @ 50 mls/hr Q1H IV 09/16/18 13:00 09/16/18 14:59 DC 09/16/18 14:27 Imaging: Imaging: UE US 09/16 IMPRESSION: Small amount of nonocclusive thrombus adjacent to the PICC line in the right axillary vein. CXR 09/14 IMPRESSION: 1. Right PICC with the tip in the superior vena cava. There is no convincing pneumothorax. 2. Stable diffuse central predominant interstitial infiltrate with suspected lingular atelectasis or scarring. 3. Stable bilateral hilar prominence. Chest CT 09/13 IMPRESSION: 1. Mixed interstitial and airspace infiltrates in both lungs, predominantly dependent. There is likely a component of pulmonary edema, as well as acute infiltrate or pneumonia. 2. 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 Appears similar to that report prior study. 3. Mild splenomegaly. 4. Gynecomastia Videoswallow 09/13 IMPRESSION: 1. Very weak swallow, resulting in pharyngeal residue and aspiration with multiple consistencies. Initial Videoswallow Study Results Pt presents weak appearing swallow w/impaired hyolaryngeal excursion and BOT retraction which contribute to reduced airway closure during swallow w/aspiration during as well as bolus residue in the pharynx p.swallow w/aspiration after swallow. Inconsistent aspiration occurred on puree, thin and honey thick liquids. Despite wet, congested cough noted at bedside, aspiration was frequently SILENT during video. See full rpt in interventions section for details. IMPRESSIONS: Moderate-severe oropharyngeal dysphagia w/primary pharyngeal component. Weak and incomplete hyolaryngeal excursion results in reduced airway closure during swallow and residue p.swallow. Both contribute to aspiration of thin liquids, honey thick liquids and puree. [place] was only effective w/<tsp honey thick bolus and would not be functional for nutritional intake given lmtd bolus size. Aspiration was frequently SILENT despite wet cough noted at bedside. Etiology of dysphagia is unclear; pt seems to indicate a sudden onset of illness and denies previous recent or repeated pneumonia. Prognosis is unclear given unknown etiology. Pt will require non-oral nutrition for at least immediate future. RECOMMENDATIONS: NPO meds and nutrition. Consider further investigation of etiology of dysphagia and goals of care, if felt indicated. PE: GEN: NAD HEENT: Atraumatic, PERRL, poor dentition LUNGS: room air, soft crackles HEART: irregularly irregular ABD: NABS, S/ND/NT EXTREMITY/SKIN: BLE w/ SCDs, seems edema is likely NEURO/PSYCH: A & O 3 A/P: A/P: Abnormal chest imaging, oropharyngeal dysphagia/aspiration - on TPN Leukocytosis, normocytic anemia, elevated bilirubin (checked 09/15) CRC screen, h/o polyps - reports colonoscopy w/ Dr. Stone ~3 years ago S/p cholecystectomy Recent incarcerated LIH repair (09/10/18 w/ Dr. Jefferson) CAD, A Fib, CHF - INR 1.9, on Lovenox COPD, pulm HTN, USAMA DM Phimosis -- We discussed rationale for PEG, procedure, and possible risks. He told me he would proceed with PEG "if he had to." I suggested he think about it and discuss with his . Would palliative discussion be helpful? Other per Dr. Burnett. DAVID LOCK Sep 16, 2018 16:06
[2018-09-16 19:34] VITALS: BP 139/72
[2018-09-16] MEDS: ATORVASTATIN CALCIUM 40 MG TABLET. PO SCH (20:39)
[2018-09-16] MEDS ORDERED: [UNRECOGNIZED DRUG - OTHER] IV SCH ×12 (22:00)
[2018-09-16] MEDS ORDERED: TOTAL PARENTERAL NUTRITION IV SCH ×12 (22:00)
[2018-09-16] MEDS ORDERED: AMINO ACID IV SCH ×12 (22:00)
[2018-09-16] MEDS ORDERED: DEXTROSE 70% IV SCH ×12 (22:00)
[2018-09-16 22:19] VITALS: BP 138/84
[2018-09-17 02:09] VITALS: BP 129/65
[2018-09-17 04:59] LABS: CALCIUM 8.1 mg/dL (8.5-10.1); CREATININE 0.8 mg/dL (0.7-1.3); GFR 110.9; MAGNESIUM 1.9 mg/dL (1.8-2.4); PHOSPHORUS 3.2 mg/dL (2.6-4.7); POTASSIUM 3.9 mmol/L (3.5-5.1)
[2018-09-17] MEDS: MEROPENEM 500 MG in IV NORMAL SALINE 50ML 50 ML IV SCH ×4 (05:36→23:38)
[2018-09-17] MEDS: METOPROLOL TARTRATE 5 MG/5 ML VIAL. IVP SCH ×4 (05:36→23:41)
[2018-09-17] MEDS: IPRATRPIUM/ALBUTEROL 0.5/2.5MG 3 ML NEBU. NEB SCH ×4 (07:08→20:12)
[2018-09-17 07:40] VITALS: BP 137/78
--- NOTE | 2018-09-17 08:16 | PDOC ---
PROGRESS NOTES Chief Complaint Chief Complaint sepsis, UTI aspiration PNA Acute on chronic diastolic CHF; Hx CAD; htn, lipids, DM2, chronic diastolic CHF, with afib Permanent AFIB; rate controlled. on warfarin for stroke prevention dysphagia, acute urinary retention, phimosis weakness, acquired History of Present Illness History of Present Illness Mr Rivero is an 87-year-old gentleman who recently underwent repair of left inguinal incarcerated hernia on 09/09/2018. He was discharged home, had been doing fairly well; however, he developed altered mental status, slurred speech and some fever as well as additional cough and some shortness of air, was brought back to [facility] Emergency Room on 09/12/2018. White count of 15.8 with 88 segs. A chest x-ray was obtained, showed some mild pulmonary edema from mild basilar infiltrates and interstitial lung disease. Urine culture and blood culture thus far negative. Had difficulty swallowing, is therefore on TPN. more alert, feels well today, voiding well. Sitting up in chair, shaving. still weak TPN for nutrition he feels stronger. Will go for PEG temporarily PT and OT RUE US for DVT - he is on therapeutic anticoagulation, unclear what the plan will be if positive. Will d/w pulm Vitals Vitals Vital Signs Date Time Temp Pulse Resp B/P (MAP) Pulse Ox O2 Delivery O2 Flow Rate FiO2 09/17/18 07:40 97.9 97 18 137/78 (97) 93 Room Air 97.9 Physical Exam Physical Exam GENERAL: Propped up in bed, alert, laughing HEENT: Pupils equal, Oral cavity, pharynx clear with some questionable dentition. NECK: Supple, no JVD. LUNGS: Clear anteriorly, nonlabored HEART: S1, S2. Pacemaker without signs of complications. ABDOMEN: Positive bowel sounds, soft, nontender, left lower quadrant incision is well approximated, no drainage, erythema or warmth. EXTREMITIES: Without clubbing, cyanosis nor gross edema. SKIN: Warm to touch without signs of rash. NEUROLOGIC: Alert, seems little confused RUE-PICC (09/14) clean General: Alert, Oriented X3, Cooperative, No acute distress Heart: Regular rate, No murmurs Lungs: Crackles Extremities: No clubbing Skin: No rashes Labs LABS Laboratory Tests Test 09/16/18 12:10 09/16/18 18:53 09/17/18 04:00 09/17/18 06:16 Glucose (Fingerstick) 83 mg/dL (70-99) 115 mg/dL (70-99) 135 mg/dL (70-99) Sodium Level 144 mmol/L (136-145) Potassium Level 3.9 mmol/L (3.5-5.1) Chloride Level 110 mmol/L (98-107) Carbon Dioxide Level 25 mmol/L (21-32) Anion Gap 9 (6-14) Blood Urea Nitrogen 21 mg/dL (8-26) Creatinine 0.8 mg/dL (0.7-1.3) Estimated GFR (Cockcroft-Gault) 110.9 Glucose Level 112 mg/dL (70-99) Calcium Level 8.1 mg/dL (8.5-10.1) Phosphorus Level 3.2 mg/dL (2.6-4.7) Magnesium Level 1.9 mg/dL (1.8-2.4) Assessment and Plan Assessmemt and Plan Problems Medical Problems: (1) Pneumonia Status: Acute (2) Sepsis Status: Acute Comment Review of Relevant I have reviewed the following items tiffany (where applicable) has been applied. Labs Laboratory Tests Test 09/15/18 17:50 09/16/18 04:25 09/16/18 06:51 09/16/18 12:10 Glucose (Fingerstick) 154 mg/dL (70-99) 170 mg/dL (70-99) 83 mg/dL (70-99) Prothrombin Time 21.7 SEC (11.7-14.0) Prothromb Time International Ratio 1.9 (0.8-1.1) Sodium Level 142 mmol/L (136-145) Potassium Level 3.4 mmol/L (3.5-5.1) Chloride Level 107 mmol/L (98-107) Carbon Dioxide Level 27 mmol/L (21-32) Anion Gap 8 (6-14) Blood Urea Nitrogen 21 mg/dL (8-26) Creatinine 0.8 mg/dL (0.7-1.3) Estimated GFR (Cockcroft-Gault) 110.9 Glucose Level 126 mg/dL (70-99) Calcium Level 8.8 mg/dL (8.5-10.1) Phosphorus Level 3.3 mg/dL (2.6-4.7) Magnesium Level 2.0 mg/dL (1.8-2.4) Test 09/16/18 18:53 09/17/18 04:00 09/17/18 06:16 Glucose (Fingerstick) 115 mg/dL (70-99) 135 mg/dL (70-99) Sodium Level 144 mmol/L (136-145) Potassium Level 3.9 mmol/L (3.5-5.1) Chloride Level 110 mmol/L (98-107) Carbon Dioxide Level 25 mmol/L (21-32) Anion Gap 9 (6-14) Blood Urea Nitrogen 21 mg/dL (8-26) Creatinine 0.8 mg/dL (0.7-1.3) Estimated GFR (Cockcroft-Gault) 110.9 Glucose Level 112 mg/dL (70-99) Calcium Level 8.1 mg/dL (8.5-10.1) Phosphorus Level 3.2 mg/dL (2.6-4.7) Magnesium Level 1.9 mg/dL (1.8-2.4) Laboratory Tests Test 09/16/18 12:10 09/16/18 18:53 09/17/18 04:00 09/17/18 06:16 Glucose (Fingerstick) 83 mg/dL (70-99) 115 mg/dL (70-99) 135 mg/dL (70-99) Sodium Level 144 mmol/L (136-145) Potassium Level 3.9 mmol/L (3.5-5.1) Chloride Level 110 mmol/L (98-107) Carbon Dioxide Level 25 mmol/L (21-32) Anion Gap 9 (6-14) Blood Urea Nitrogen 21 mg/dL (8-26) Creatinine 0.8 mg/dL (0.7-1.3) Estimated GFR (Cockcroft-Gault) 110.9 Glucose Level 112 mg/dL (70-99) Calcium Level 8.1 mg/dL (8.5-10.1) Phosphorus Level 3.2 mg/dL (2.6-4.7) Magnesium Level 1.9 mg/dL (1.8-2.4) Microbiology 09/12/18 Blood Culture - Final, Complete NO GROWTH AFTER 5 DAYS 09/13/18 Urine Culture - Final, Complete 09/13/18 Urine Culture Result 1 (MOI) - Final, Complete Medications Current Medications Piperacillin Sod/ Tazobactam Sod 4.5 gm/Sodium Chloride 100 ml @ 200 mls/hr 1X ONCE IV Last administered on 09/12/18at 03:03; Start 09/12/18 at 02:30; Stop 09/12/18 at 02:59; Status DC Vancomycin HCl (Vanco Per Pharmacy) 1 each PRN DAILY PRN MC SEE COMMENTS Last administered on 09/12/18at 05:25; Start 09/12/18 at 02:15; Stop 09/12/18 at 13:38; Status DC Sodium Chloride 1,000 ml @ 1,000 mls/hr 1X ONCE IV Last administered on 09/12/18at 03:02; Start 09/12/18 at 02:30; Stop 09/12/18 at 03:29; Status DC Acetaminophen (Tylenol) 1,000 mg 1X ONCE PO Last administered on 09/12/18at 03:11; Start 09/12/18 at 02:30; Stop 09/12/18 at 02:31; Status DC Vancomycin HCl 2 gm/Sodium Chloride 500 ml @ 250 mls/hr 1X ONCE IV Last administered on 09/12/18at 04:59; Start 09/12/18 at 03:30; Stop 09/12/18 at 05:29; Status DC Sodium Chloride 2,340 ml @ 2,340 mls/hr Q1H IV Last administered on 09/12/18at 03:02; Start 09/12/18 at 02:47; Stop 09/12/18 at 03:06; Status DC Ondansetron HCl (Zofran) 4 mg PRN Q8HRS PRN IV NAUSEA/VOMITING 1ST CHOICE; Start 09/12/18 at 03:00; Stop 09/13/18 at 02:59; Status DC Albuterol/ Ipratropium (Duoneb) 3 ml RTQID NEB Last administered on 09/13/18at 15:52; Start 09/12/18 at 08:00; Stop 09/13/18 at 07:59; Status DC Sodium Chloride 1,000 ml @ 1,000 mls/hr Q1H IV Last administered on 09/12/18at 04:06; Start 09/12/18 at 03:06; Stop 09/12/18 at 04:40; Status DC Acetaminophen/ Hydrocodone Bitart (Lortab 5/325) 7.5 tab PRN Q6HRS PRN PO MODERATE PAIN; Start 09/12/18 at 04:30; Stop 09/12/18 at 04:46; Status DC Lactobacillus Rhamnosus (Culturelle) 1 cap BID PO Last administered on 09/12/18at 08:22; Start 09/12/18 at 09:00; Stop 09/16/18 at 10:40; Status DC Acetaminophen/ Hydrocodone Bitart (Lortab 5/325) 1 tab PRN Q6HRS PRN PO MODERATE PAIN Last administered on 09/12/18at 04:54; Start 09/12/18 at 04:46 Vancomycin HCl 1.25 gm/Sodium Chloride 250 ml @ 167 mls/hr Q18H IV ; Start 09/12/18 at 23:00; Stop 09/12/18 at 23:00; Status DC Vancomycin HCl (Vancomycin Trough Level) 1 each 1X ONCE MC ; Start 09/13/18 at 16:30; Stop 09/13/18 at 16:30; Status DC Furosemide (Lasix) 40 mg 1X ONCE IVP Last administered on 09/12/18at 13:36; Start 09/12/18 at 12:45; Stop 09/12/18 at 12:46; Status DC Potassium Chloride (Klor-Con) 40 meq 1X ONCE PO Last administered on 09/12/18at 13:36; Start 09/12/18 at 12:45; Stop 09/12/18 at 12:46; Status DC Piperacillin Sod/ Tazobactam Sod 3.375 gm/Sodium Chloride 50 ml @ 100 mls/hr Q6HRS IV Last administered on 09/13/18at 05:37; Start 09/12/18 at 14:00; Stop 09/13/18 at 10:14; Status DC Aspirin (Children'S Aspirin) 81 mg BID PO ; Start 09/12/18 at 21:00 Atorvastatin Calcium (Lipitor) 40 mg QHS PO ; Start 09/12/18 at 21:00 Digoxin (Lanoxin) 125 mcg DAILY PO Last administered on 09/12/18at 15:29; Start 09/12/18 at 15:00 Metoprolol Tartrate (Lopressor) 100 mg DAILY PO Last administered on 09/12/18at 15:28; Start 09/12/18 at 15:00; Stop 09/13/18 at 12:48; Status DC Warfarin Sodium (Coumadin) 5 mg [id number] PO Last administered on 09/12/18at 15:28; Start 09/12/18 at 16:00; Stop 09/14/18 at 14:06; Status DC Warfarin Sodium (Coumadin) 7.5 mg We PO ; Start 09/18/18 at 16:00; Stop 09/18/18 at 16:00; Status DC Magnesium Sulfate 50 ml @ 25 mls/hr 1X ONCE IV Last administered on 09/12/18at 15:32; Start 09/12/18 at 15:00; Stop 09/12/18 at 16:59; Status DC Warfarin Sodium (Coumadin Per Physician) 1 each PRN DAILY PRN MC SEE COMMENTS Last administered on 09/13/18at 14:43; Start 09/12/18 at 15:15; Stop 09/14/18 at 12:14; Status DC Diltiazem HCl 125 mg/Dextrose 125 ml @ 5 mls/hr CONT PRN IV SEE I/O RECORD; Start 09/12/18 at 19:15 Sodium Chloride 1,000 ml @ 999 mls/hr 1X ONCE IV Last administered on 09/12/18at 20:16; Start 09/12/18 at 20:15; Stop 09/12/18 at 21:15; Status DC Meropenem 500 mg/ Sodium Chloride 50 ml @ 100 mls/hr Q6HRS IV Last administered on 09/17/18at 05:36; Start 09/13/18 at 12:00 Micafungin Sodium 100 mg/Dextrose 100 ml @ 100 mls/hr Q24H IV Last administered on 09/15/18at 12:39; Start 09/13/18 at 12:00; Stop 09/16/18 at 08:20; Status DC Linezolid (Zyvox) 600 mg BID PO ; Start 09/13/18 at 10:15; Stop 09/13/18 at 10:17; Status DC Linezolid/Dextrose 300 ml @ 300 mls/hr Q12HR IV Last administered on 09/15/18at 20:39; Start 09/13/18 at 10:30; Stop 09/16/18 at 08:20; Status DC Metoprolol Tartrate (Lopressor Vial) 5 mg Q6HRS IVP Last administered on 09/17/18 05:36; Start 09/13/18 at 13:00 Sodium Chloride 1,000 ml @ 60 mls/hr 1X ONCE IV Last administered on 09/13/18 13:45; Start 09/13/18 at 13:00; Stop 09/14/18 at 05:39; Status DC Amino Acids/ Glycerin/ Electrolytes 1,000 ml @ 80 mls/hr [id number] IV Last administered on 09/13/18 17:43; Start 09/13/18 at 14:00; Stop 09/14/18 at 22:00; Status DC Furosemide (Lasix) 40 mg 1X ONCE IVP Last administered on 09/13/18 16:10; Start 09/13/18 at 14:30; Stop 09/13/18 at 14:31; Status DC Barium Sulfate (Varibar Thin Liquid Apple) 148 gm 1X ONCE PO ; Start 09/13/18 at 14:15; Stop 09/13/18 at 14:21; Status DC Fluocinonide (Lidex) 1 mihaela BID TP Last administered on 09/16/18 20:39; Start 09/13/18 at 15:00 Tamsulosin HCl (Flomax) 0.4 mg DAILY PO ; Start 09/13/18 at 15:00 Albuterol/ Ipratropium (Duoneb) 3 ml RTQID NEB Last administered on 09/17/18at 07:08; Start 09/13/18 at 08:00 Info (Tpn Per Pharmacy) 1 each PRN DAILY PRN MC SEE COMMENTS Last administered on 09/16/18 13:49; Start 09/14/18 at 12:15 Saliva Substitute (Biotene Moisturizing Mouth) 2 spray PRN Q15MIN PRN PO DRY MOUTH Last administered on 09/14/18 21:06; Start 09/14/18 at 12:15 Clotrimazole (Mycelex) 10 mg 5XDAY MM Last administered on 09/16/18 05:13; Start 09/14/18 at 14:00; Stop 09/16/18 at 08:02; Status DC Warfarin Sodium (Coumadin Per Pharmacy) 1 each PRN DAILY PRN MC SEE COMMENTS; Start 09/14/18 at 12:15; Stop 09/14/18 at 14:05; Status DC Enoxaparin Sodium (Lovenox Per Pharmacy Treatment Dosing) 1 each PRN DAILY PRN MC SEE COMMENTS; Start 09/14/18 at 14:15 Potassium Phosphate 13.6 mmol/Dextrose 104.5333 ml @ 52.267 m... 1X ONCE IV ; Start 09/14/18 at 16:00; Stop 09/14/18 at 17:59; Status Cancel Sodium Chloride 45 meq/Sodium Acetate 45 meq/ Potassium Chloride 25 meq/ Potassium Acetate 25 meq/Potassium Phosphate 20.4 mmol/Magnesium Sulfate 10 meq/ Multivitamins 10 ml/Chromium/ Copper/Manganese/ Seleni/Zn 1 ml/ Total Parenteral Nutrition/Amino Acids/Dextrose/ Fat Emulsion Intravenous 1,512 ml @ 63 mls/hr TPN CONT IV Last administered on 09/14/18at 21:21; Start 09/14/18 at 22:00; Stop 09/15/18 at 21:59; Status DC Potassium Chloride/Water 100 ml @ 100 mls/hr Q1H IV Last administered on 09/14/18at 21:23; Start 09/14/18 at 16:00; Stop 09/14/18 at 19:59; Status DC Dextrose (Dextrose 50%-Water Syringe) 12.5 gm PRN Q15MIN PRN IV SEE COMMENTS; Start 09/14/18 at 18:30 Diclofenac Sodium (Voltaren) 1 mihaela PRN BID PRN TP KNEE PAIN Last administered on 09/15/18at 08:59; Start 09/15/18 at 02:00 Acetaminophen (Tylenol Supp) 325 mg PRN Q6HRS PRN [place] MILD PAIN / TEMP; Start 09/15/18 at 11:30 Sodium Chloride 45 meq/Sodium Acetate 10 meq/ Sodium Phosphate 15 mmol/Potassium Chloride 25 meq/ Potassium Acetate 25 meq/Potassium Phosphate 20.4 mmol/Magnesium Sulfate 10 meq/ Multivitamins 10 ml/Chromium/ Copper/Manganese/ Seleni/Zn 1 ml/ Total Parenteral Nutrition/Amino Acids/Dextrose/ Fat Emuls... 1,512 ml @ 63 mls/hr TPN CONT IV Last administered on 09/15/18at 20:39; Start 09/15/18 at 22:00; Stop 09/16/18 at 21:59; Status DC Potassium Chloride/Water 100 ml @ 100 mls/hr Q1H IV ; Start 09/16/18 at 09:00; Stop 09/16/18 at 12:59; Status Cancel Enoxaparin Sodium (Lovenox 100mg Syringe) 90 mg Q12HR SQ Last administered on 09/16/18at 20:36; Start 09/16/18 at 11:30 Info (Anti-Coagulation Monitoring By Pharmacy) 1 each PRN DAILY PRN MC SEE COMMENTS Last administered on 09/16/18at 11:04; Start 09/16/18 at 11:00 Potassium Chloride/Water 50 ml @ 50 mls/hr Q1H IV Last administered on 09/16/18at 14:27; Start 09/16/18 at 13:00; Stop 09/16/18 at 14:59; Status DC Sodium Chloride 45 meq/Sodium Acetate 10 meq/ Sodium Phosphate 15 mmol/Potassium Chloride 25 meq/ Potassium Acetate 55 meq/Potassium Phosphate 20.4 mmol/Magnesium Sulfate 20 meq/ Multivitamins 10 ml/Chromium/ Copper/Manganese/ Seleni/Zn 1 ml/ Total Parenteral Nutrition/Amino Acids/Dextrose/ Fat Emuls... 1,512 ml @ 63 mls/hr TPN CONT IV Last administered on 09/16/18at 20:37; Start 09/16/18 at 22:00; Stop 09/17/18 at 21:59 Active Scripts Active Reported Colace (Docusate Sodium) 100 Mg Capsule 1 Cap PO TID Metamucil Powder (Psyllium Seed (with Sugar)) 575 Gm Powder 575 Gm PO DAILY [place] 5-325 Tablet (Acetaminophen/Hydrocodone Bitart) 1 Each Tablet 7.5 Mg PO PRN Q6HRS PRN LAST DOSE GIVEN: Atorvastatin Calcium 40 Mg Tablet 1 Tab PO DAILY Metoprolol Tartrate 100 Mg Tablet 100 Mg PO DAILY Tamsulosin Hcl 0.4 Mg Cap.er.24h 0.4 Mg PO HS DAILY Vitamin C (Ascorbic Acid) 500 Mg Tablet 250 Mg PO DAILY Warfarin Sodium 5 Mg Tablet 1.5 Tab PO QWE Warfarin Sodium 5 Mg Tablet 1 Tab PO DAILY EXCEPT WED. Aspirin 81 Mg Tab.chew 81 Mg PO BID Lanoxin (Digoxin) 125 Mcg Tablet 125 Mcg PO DAILY Vitals/I & O Vital Sign - Last 24 Hours 6/1009/16/18 09/16/18 09/16/18 08:48 10:50 12:03 12:25 Temp 98.0 98.0 Pulse 87 80 Resp 20 B/P (MAP) 127/60 (82) 122/65 Pulse Ox 95 92 O2 Delivery Room Air Room Air Room Air 09/16/18 09/16/18 09/16/18 09/16/18 15:00 15:56 17:58 19:32 Temp 98.2 98.2 Pulse 82 83 Resp 20 B/P (MAP) 125/81 (96) 139/72 Pulse Ox 93 O2 Delivery Room Air Room Air Room Air 09/16/18 09/16/18 09/16/18 09/16/18 19:34 20:07 22:19 23:35 Temp 98.1 97.8 98.1 97.8 Pulse 77 81 81 Resp 18 18 B/P (MAP) 139/72 (94) 138/84 (102) 138/84 Pulse Ox 95 96 O2 Delivery Room Air Room Air Room Air 09/17/18 09/17/18 09/17/18 09/17/18 02:09 05:36 07:08 07:40 Temp 97.9 97.9 97.9 97.9 Pulse 92 92 97 Resp 18 18 B/P (MAP) 129/65 (86) 129/65 137/78 (97) Pulse Ox 97 96 93 O2 Delivery Room Air Room Air Room Air Intake and Output 09/16/18 09/16/18 09/17/18 14:59 22:59 06:59 Intake Total 450 ml 0 ml Balance 450 ml 0 ml Nutrition Consultation Dietary Evaluation: Recommendations by RD: Decrease Calorie Intake Comments: REC adjust TPN macronutrients to followin g AA, 250 g dextrose, 20 g lipid REC feeding tube placement (Dobhoff vs PEG pending duration of NPO) w/tube feedings per following: Glucerna 1.2@goal rate 65 ml/hr w/150 ml water flushes q4 hrs Goal oral diet: ADA/cardiac w/consistency and textures per ELECTROMECHANICAL TECHNICIAN Expected Outcomes/Goals: Nutrition support (TPN vs tube feeding) for nutrition needs while pt remains NPO Malnutrition Findings: Food and Nutrition Intake (Sev: <50% est energy req 5days Weight Status: Appropriate RANDALL CLARK MD Sep 17, 2018 08:16
[2018-09-17] MEDS: DIGOXIN 125 MCG TABLET. PO SCH (09:00)
[2018-09-17] MEDS: TAMSULOSIN 0.4 MG CAP.ER.24H. PO SCH (09:00)
[2018-09-17] MEDS: ASPIRIN CHEWABLE 81 MG TABLET. PO SCH ×2 (09:00→21:00)
--- NOTE | 2018-09-17 09:02 | PDOC ---
PULMONARY PROGRESS NOTES Subjective PT NOT SOA AT TIMES CONFUSED Vitals Vital Signs Date Time Temp Pulse Resp B/P (MAP) Pulse Ox O2 Delivery O2 Flow Rate FiO2 09/17/18 07:40 97.9 97 18 137/78 (97) 93 Room Air 97.9 ROS: No Nausea, No Chest Pain, No Abdominal Pain, No Increase Cough General: Alert HEENT: Other (nc at perrl) Lungs: Crackles Cardiovascular: S1, S2 Abdomen: Soft, Non-tender Neuro Exam: Alert Extremities: No Edema Skin: Warm Labs Laboratory Tests Test 09/15/18 17:50 09/16/18 04:25 09/16/18 06:51 09/16/18 12:10 Glucose (Fingerstick) 154 mg/dL (70-99) 170 mg/dL (70-99) 83 mg/dL (70-99) Prothrombin Time 21.7 SEC (11.7-14.0) Prothromb Time International Ratio 1.9 (0.8-1.1) Sodium Level 142 mmol/L (136-145) Potassium Level 3.4 mmol/L (3.5-5.1) Chloride Level 107 mmol/L (98-107) Carbon Dioxide Level 27 mmol/L (21-32) Anion Gap 8 (6-14) Blood Urea Nitrogen 21 mg/dL (8-26) Creatinine 0.8 mg/dL (0.7-1.3) Estimated GFR (Cockcroft-Gault) 110.9 Glucose Level 126 mg/dL (70-99) Calcium Level 8.8 mg/dL (8.5-10.1) Phosphorus Level 3.3 mg/dL (2.6-4.7) Magnesium Level 2.0 mg/dL (1.8-2.4) Test 09/16/18 18:53 09/17/18 04:00 09/17/18 06:16 Glucose (Fingerstick) 115 mg/dL (70-99) 135 mg/dL (70-99) Sodium Level 144 mmol/L (136-145) Potassium Level 3.9 mmol/L (3.5-5.1) Chloride Level 110 mmol/L (98-107) Carbon Dioxide Level 25 mmol/L (21-32) Anion Gap 9 (6-14) Blood Urea Nitrogen 21 mg/dL (8-26) Creatinine 0.8 mg/dL (0.7-1.3) Estimated GFR (Cockcroft-Gault) 110.9 Glucose Level 112 mg/dL (70-99) Calcium Level 8.1 mg/dL (8.5-10.1) Phosphorus Level 3.2 mg/dL (2.6-4.7) Magnesium Level 1.9 mg/dL (1.8-2.4) Laboratory Tests Test 09/16/18 12:10 09/16/18 18:53 09/17/18 04:00 09/17/18 06:16 Glucose (Fingerstick) 83 mg/dL (70-99) 115 mg/dL (70-99) 135 mg/dL (70-99) Sodium Level 144 mmol/L (136-145) Potassium Level 3.9 mmol/L (3.5-5.1) Chloride Level 110 mmol/L (98-107) Carbon Dioxide Level 25 mmol/L (21-32) Anion Gap 9 (6-14) Blood Urea Nitrogen 21 mg/dL (8-26) Creatinine 0.8 mg/dL (0.7-1.3) Estimated GFR (Cockcroft-Gault) 110.9 Glucose Level 112 mg/dL (70-99) Calcium Level 8.1 mg/dL (8.5-10.1) Phosphorus Level 3.2 mg/dL (2.6-4.7) Magnesium Level 1.9 mg/dL (1.8-2.4) Medications Active Scripts Medications Dose Route/Sig Max Daily Dose Days Date Category Dose Instructions Colace (Docusate Sodium) 100 Mg Capsule 1 Cap PO TID 09/09/18 Reported Metamucil Powder (Psyllium Seed (with Sugar)) 575 Gm Powder 575 Gm PO DAILY 09/09/18 Reported [place] 5-325 Tablet (Acetaminophen/Hydrocodone Bitart) 1 Each Tablet 7.5 Mg PO PRN Q6HRS PRN 09/09/18 Reported LAST DOSE GIVEN: Atorvastatin Calcium 40 Mg Tablet 1 Tab PO DAILY 08/12/18 Reported Metoprolol Tartrate 100 Mg Tablet 100 Mg PO DAILY 11/08/17 Reported Tamsulosin Hcl 0.4 Mg Cap.er.24h 0.4 Mg PO HS DAILY 11/08/17 Reported Vitamin C (Ascorbic Acid) 500 Mg Tablet 250 Mg PO DAILY 05/08/14 Reported Warfarin Sodium 5 Mg Tablet 1.5 Tab PO QWE 04/18/14 Reported Warfarin Sodium 5 Mg Tablet 1 Tab PO DAILY EXCEPT WED. 04/18/14 Reported Aspirin 81 Mg Tab.chew 81 Mg PO BID 08/22/13 Reported Lanoxin (Digoxin) 125 Mcg Tablet 125 Mcg PO DAILY 08/22/[address] reviewed 1. Mixed interstitial and airspace infiltrates in both lungs, predominantly dependent. There is likely a component of pulmonary edema, as well as acute infiltrate or pneumonia. 2. 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 Appears similar to that report prior study. 3. Mild splenomegaly. 4. Gynecomastia. Impression . IMPRESSION: 1. Abnormal x-ray/ RECURRENT ASPIRATION 2. Respiratory insufficiency. 3. possible sepsis. 4. Coronary artery disease. 5. Secondary pulmonary hypertension. 6. Obstructive sleep apnea. 7. Acute on chronic diastolic heart failure. 8. Permanent atrial fibrillation along with sick sinus syndrome, status post pacemaker implantation. 9. dysphagia. abnl opv 10. low grade fever Plan . FOLLOW SPEECH INPUT, FAMILY TO DECIDE ON PEG NPO FOR NOW CONTINUE ANTI BREN NUGENT MD Sep 17, 2018 09:02
--- NOTE | 2018-09-17 09:04 | PDOC ---
Infectious Disease Note Subjective Subjective feeling good says ROS ROS no n/v/d/ very weak Vital Sign Vital Signs Vital Signs Date Time Temp Pulse Resp B/P (MAP) Pulse Ox O2 Delivery O2 Flow Rate FiO2 09/17/18 07:40 97.9 97 18 137/78 (97) 93 Room Air 97.9 Physical Exam PHYSICAL EXAM GENERAL: Propped up in bed, alert, HEENT: Pupils equal, Oral cavity, pharynx clear with some questionable dentition. NECK: Supple, no JVD. LUNGS: Clear anteriorly, nonlabored HEART: S1, S2. Pacemaker without signs of complications. ABDOMEN: Positive bowel sounds, soft, nontender, left lower quadrant incision is well approximated, no drainage, erythema or warmth. EXTREMITIES: Without clubbing, cyanosis nor gross edema. SKIN: Warm to touch without signs of rash. NEUROLOGIC: Alert, seems little confused RUE-PICC (09/14) clean Labs Lab Laboratory Tests Test 09/16/18 12:10 09/16/18 18:53 09/17/18 04:00 09/17/18 06:16 Glucose (Fingerstick) 83 mg/dL (70-99) 115 mg/dL (70-99) 135 mg/dL (70-99) Sodium Level 144 mmol/L (136-145) Potassium Level 3.9 mmol/L (3.5-5.1) Chloride Level 110 mmol/L (98-107) Carbon Dioxide Level 25 mmol/L (21-32) Anion Gap 9 (6-14) Blood Urea Nitrogen 21 mg/dL (8-26) Creatinine 0.8 mg/dL (0.7-1.3) Estimated GFR (Cockcroft-Gault) 110.9 Glucose Level 112 mg/dL (70-99) Calcium Level 8.1 mg/dL (8.5-10.1) Phosphorus Level 3.2 mg/dL (2.6-4.7) Magnesium Level 1.9 mg/dL (1.8-2.4) Micro Microbiology 09/12/18 Blood Culture - Preliminary, Resulted NO GROWTH AFTER 4 DAYS 09/13/18 Urine Culture - Final, Complete 09/13/18 Urine Culture Result 1 (MOI) - Final, Complete Objective Assessment Fever, improved Bandemia Leukocytosis Possible UTI - c/o urinary complications prior to admit; yeast present S/p repair of incarcerated left inguinal hernia, had actually herniations on both sides of the cord structures at the internal inguinal ring 09/09 Acute on chronic diastolic HF; recent echo with preserved LV systolic function as noted above. CAD; catheterization 08/2018 with [facility] of LAD, which is unchanged from previous cath in 2013. Stable CP free. Permanent AFIB; rate controlled. on warfarin for stroke prevention. INR 2.7, PPM Diabetes, II Dysphagia Plan Plan of Care cont meropenem, Probiotics Cultures neg so far Monitor WBC/temp Maintain aspiration precautions pt/ot D/w nursing sputum culture AUSTIN TIJERINA MD Sep 17, 2018 09:04
[2018-09-17] MEDS: FLUOCINONIDE 0.05% TOPICAL CREAM 15 GM TUBE. TP SCH ×2 (09:25→20:15)
[2018-09-17 10:55] VITALS: BP 143/76
[2018-09-17] MEDS: DICLOFENAC SODIUM 1% TOPICAL GEL 100GM TUBE. TP PRN ×2 (12:26→20:15)
[2018-09-17] MEDS ORDERED: PHYTONADIONE 10 MG/ML AMPUL. SQ ONE (12:30)
[2018-09-17] MEDS: TPN PER PHARMACY MC PRN (13:40)
--- NOTE | 2018-09-17 13:40 | NUR ---
Pharmacy TPN Dosing Note S: MAMTA MACIAS is a 87 year old M Currently receiving Central Continuous TPN started 09/14/18 B:Pertinent PMH: failed swallow study Height: 6 feet, 1 inches Weight: 88.783854 kg Current diet: npo LABS: Sodium: 144 Potassium: 3.9 Chloride: 110 Calcium: 8.1 Corrected Calcium: 9.54 Magnesium: 1.9 CO2: 25 SCr: 0.8 Glucose: 112-131 Albumin: 2.2 AST: 27 ALT: 15 TPN FORMULA: TPN TYPE: Central Continuous AMINO ACIDS: 85 gm DEXTROSE: 250 gm LIPIDS: 20 gm SODIUM CHLORIDE: 45 mEq SODIUM ACETATE: 10 mEq SODIUM PHOSPHATE: 15 mmol POTASSIUM CHLORIDE: 25 mEq POTASSIUM ACETATE: 55 mEq POTASSIUM PHOSPHATE: 20.4 mmol MAGNESIUM: 20 mEq CALCIUM: 0 mEq INSULIN: units MULTIPLE VITAMIN: 10 ml TRACE ELEMENTS: 1 ml ml(s) TPN PLAN: Lytes trending appropriately from yesterday's changes. Increased macros per dietary. No other changes, BMP in am. R: Continue TPN ABOVE. Will monitor electrolytes, glucose, and tolerance to TPN. AGUSTIN BAER [facility], 09/17/18 [id number]
--- NOTE | 2018-09-17 14:06 | PDOC2 ---
PALLIATIVE CARE Palliative Care Note Palliative Care Consult requested by Dr. Yadav to address goals of care/PEG Medical Assessment per medical record; sepsis, UTI aspiration PNA Acute on chronic diastolic CHF; Hx CAD; htn, lipids, DM2, chronic diastolic CHF, with afib Permanent AFIB; rate controlled. on warfarin for stroke prevention dysphagia, acute urinary retention, phimosis weakness, acquired Swallow evaluation/Video: NPO Patient alert. Sitting up in bed visiting with family. TPN infusing. 1040 Spoke with sons Griffin and Francisco. Reviewed above medical condition. Patient inconsistent about his wishes for PEG tube. Finally stated: "I want what's best" Sons would like to talk to more physicians. They are hoping he will get stronger on his own, however they do not rule out a PEG tube. GI has been consulted. Will await decisions. Patient/family likely will lean towards PEG tube but would rather give patient more time to improve. KIMBERLEY BANKS Sep 17, 2018 14:06
[2018-09-17 14:46] VITALS: BP 144/78
[2018-09-17] MEDS: ANTI-COAG MONITOR BY PHARMACY. MC PRN (15:19)
[2018-09-17 19:44] VITALS: BP 124/72
[2018-09-17] MEDS ORDERED: AMINO AC 3%/ELECTROLYTE/GLYCER 1,000 ML IV SCH (20:00)
[2018-09-17] MEDS: ATORVASTATIN CALCIUM 40 MG TABLET. PO SCH (20:12)
[2018-09-17] MEDS ORDERED: AMINO ACID IV SCH ×12 (22:00)
[2018-09-17] MEDS ORDERED: [UNRECOGNIZED DRUG - OTHER] IV SCH ×12 (22:00)
[2018-09-17] MEDS ORDERED: DEXTROSE 70% IV SCH ×12 (22:00)
[2018-09-17] MEDS ORDERED: TOTAL PARENTERAL NUTRITION IV SCH ×12 (22:00)
[2018-09-17 22:43] VITALS: BP 117/64
[2018-09-18 02:49] VITALS: BP 138/86
[2018-09-18 04:05] LABS: PROTHROMBIN TIME PATIENT 17.8 SEC (11.7-14.0)
[2018-09-18 04:18] LABS: CALCIUM 9.5 mg/dL (8.5-10.1); CREATININE 0.9 mg/dL (0.7-1.3); GFR 96.8; POTASSIUM 4.4 mmol/L (3.5-5.1)
[2018-09-18] MEDS: MEROPENEM 500 MG in IV NORMAL SALINE 50ML 50 ML IV SCH ×4 (05:29→22:44)
[2018-09-18] MEDS: METOPROLOL TARTRATE 5 MG/5 ML VIAL. IVP SCH ×4 (05:30→22:52)
[2018-09-18 07:00] VITALS: BP 142/86
[2018-09-18] MEDS: IPRATRPIUM/ALBUTEROL 0.5/2.5MG 3 ML NEBU. NEB SCH ×4 (08:08→21:45)
[2018-09-18] MEDS: DIGOXIN 125 MCG TABLET. PO SCH (08:16)
[2018-09-18] MEDS: ASPIRIN CHEWABLE 81 MG TABLET. PO SCH ×2 (08:16→21:00)
[2018-09-18] MEDS: TAMSULOSIN 0.4 MG CAP.ER.24H. PO SCH (08:16)
--- NOTE | 2018-09-18 08:27 | PDOC ---
PROGRESS NOTES Chief Complaint Chief Complaint Sepsis, UTI Aspiration PNA Acute on chronic diastolic CHF; Hx CAD; htn, lipids, DM2, Chronic diastolic CHF, with afib Permanent AFIB; rate controlled. on warfarin for stroke prevention Dysphagia, acute Urinary retention, phimosis Weakness, acquired History of Present Illness History of Present Illness Mr Rivero is an 87-year-old gentleman who recently underwent repair of left inguinal incarcerated hernia on 09/09/2018. He was discharged home, had been doing fairly well; however, he developed altered mental status, slurred speech and some fever as well as additional cough and some shortness of air, was brought back to [facility] Emergency Room on 09/12/2018. White count of 15.8 with 88 segs. A chest x-ray was obtained, showed some mild p ulmonary edema from mild basilar infiltrates and interstitial lung disease. Urine culture and blood culture thus far negative. Had difficulty swallowing, is therefore on TPN. More alert, feels well today, voiding well. Sitting up in bed Still weak PPN for nutrition as he pulled his PICC last night when he was confused. He feels stronger. Still not clear on PEG, makes sense as he had no trouble swallowing prior to admission. PT and OT RUE US for DVT - he is on therapeutic anticoagulation Vitals Vitals Vital Signs Date Time Temp Pulse Resp B/P (MAP) Pulse Ox O2 Delivery O2 Flow Rate FiO2 09/18/18 08:10 98 Room Air 09/18/18 07:00 98.3 77 22 142/86 (104) 98.3 09/17/18 19:25 2.0 Physical Exam Physical Exam GENERAL: Propped up in bed, alert, HEENT: Pupils equal, Oral cavity, pharynx clear with some questionable dentition. NECK: Supple, no JVD. LUNGS: Clear anteriorly, nonlabored HEART: S1, S2. Pacemaker without signs of complications. ABDOMEN: Positive bowel sounds, soft, nontender, left lower quadrant incision is well approximated, no drainage, erythema or warmth. EXTREMITIES: Without clubbing, cyanosis nor gross edema. SKIN: Warm to touch without signs of rash. NEUROLOGIC: Alert, seems little confused RUE-PICC (09/14) clean General: Alert, Oriented X3, Cooperative, No acute distress Heart: Regular rate, No murmurs Lungs: Crackles Extremities: No clubbing Skin: No rashes Labs LABS Laboratory Tests Test 09/17/18 11:36 09/17/18 18:07 09/18/18 00:36 09/18/18 03:40 Glucose (Fingerstick) 131 mg/dL (70-99) 89 mg/dL (70-99) 103 mg/dL (70-99) Prothrombin Time 17.8 SEC (11.7-14.0) Prothromb Time International Ratio 1.5 (0.8-1.1) Sodium Level 145 mmol/L (136-145) Potassium Level 4.4 mmol/L (3.5-5.1) Chloride Level 110 mmol/L (98-107) Carbon Dioxide Level 25 mmol/L (21-32) Anion Gap 10 (6-14) Blood Urea Nitrogen 27 mg/dL (8-26) Creatinine 0.9 mg/dL (0.7-1.3) Estimated GFR (Cockcroft-Gault) 96.8 Glucose Level 113 mg/dL (70-99) Calcium Level 9.5 mg/dL (8.5-10.1) Test 09/18/18 06:30 Glucose (Fingerstick) 98 mg/dL (70-99) Assessment and Plan Assessmemt and Plan Problems Medical Problems: (1) Pneumonia Status: Acute (2) Sepsis Status: Acute Comment Review of Relevant I have reviewed the following items tiffany (where applicable) has been applied. Labs Laboratory Tests Test 09/16/18 12:10 09/16/18 18:53 09/17/18 04:00 09/17/18 06:16 Glucose (Fingerstick) 83 mg/dL (70-99) 115 mg/dL (70-99) 135 mg/dL (70-99) Sodium Level 144 mmol/L (136-145) Potassium Level 3.9 mmol/L (3.5-5.1) Chloride Level 110 mmol/L (98-107) Carbon Dioxide Level 25 mmol/L (21-32) Anion Gap 9 (6-14) Blood Urea Nitrogen 21 mg/dL (8-26) Creatinine 0.8 mg/dL (0.7-1.3) Estimated GFR (Cockcroft-Gault) 110.9 Glucose Level 112 mg/dL (70-99) Calcium Level 8.1 mg/dL (8.5-10.1) Phosphorus Level 3.2 mg/dL (2.6-4.7) Magnesium Level 1.9 mg/dL (1.8-2.4) Test 09/17/18 11:36 09/17/18 18:07 09/18/18 00:36 09/18/18 03:40 Glucose (Fingerstick) 131 mg/dL (70-99) 89 mg/dL (70-99) 103 mg/dL (70-99) Prothrombin Time 17.8 SEC (11.7-14.0) Prothromb Time International Ratio 1.5 (0.8-1.1) Sodium Level 145 mmol/L (136-145) Potassium Level 4.4 mmol/L (3.5-5.1) Chloride Level 110 mmol/L (98-107) Carbon Dioxide Level 25 mmol/L (21-32) Anion Gap 10 (6-14) Blood Urea Nitrogen 27 mg/dL (8-26) Creatinine 0.9 mg/dL (0.7-1.3) Estimated GFR (Cockcroft-Gault) 96.8 Glucose Level 113 mg/dL (70-99) Calcium Level 9.5 mg/dL (8.5-10.1) Test 09/18/18 06:30 Glucose (Fingerstick) 98 mg/dL (70-99) Laboratory Tests Test 09/17/18 11:36 09/17/18 18:07 09/18/18 00:36 09/18/18 03:40 Glucose (Fingerstick) 131 mg/dL (70-99) 89 mg/dL (70-99) 103 mg/dL (70-99) Prothrombin Time 17.8 SEC (11.7-14.0) Prothromb Time International Ratio 1.5 (0.8-1.1) Sodium Level 145 mmol/L (136-145) Potassium Level 4.4 mmol/L (3.5-5.1) Chloride Level 110 mmol/L (98-107) Carbon Dioxide Level 25 mmol/L (21-32) Anion Gap 10 (6-14) Blood Urea Nitrogen 27 mg/dL (8-26) Creatinine 0.9 mg/dL (0.7-1.3) Estimated GFR (Cockcroft-Gault) 96.8 Glucose Level 113 mg/dL (70-99) Calcium Level 9.5 mg/dL (8.5-10.1) Test 09/18/18 06:30 Glucose (Fingerstick) 98 mg/dL (70-99) Microbiology 09/12/18 Blood Culture - Final, Complete NO GROWTH AFTER 5 DAYS 09/13/18 Urine Culture - Final, Complete 09/13/18 Urine Culture Result 1 (MOI) - Final, Complete Medications Current Medications Piperacillin Sod/ Tazobactam Sod 4.5 gm/Sodium Chloride 100 ml @ 200 mls/hr 1X ONCE IV Last administered on 09/12/18at 03:03; Start 09/12/18 at 02:30; Stop 09/12/18 at 02:59; Status DC Vancomycin HCl (Vanco Per Pharmacy) 1 each PRN DAILY PRN MC SEE COMMENTS Last administered on 09/12/18at 05:25; Start 09/12/18 at 02:15; Stop 09/12/18 at 13:38; Status DC Sodium Chloride 1,000 ml @ 1,000 mls/hr 1X ONCE IV Last administered on 09/12/18at 03:02; Start 09/12/18 at 02:30; Stop 09/12/18 at 03:29; Status DC Acetaminophen (Tylenol) 1,000 mg 1X ONCE PO Last administered on 09/12/18at 03:11; Start 09/12/18 at 02:30; Stop 09/12/18 at 02:31; Status DC Vancomycin HCl 2 gm/Sodium Chloride 500 ml @ 250 mls/hr 1X ONCE IV Last administered on 09/12/18at 04:59; Start 09/12/18 at 03:30; Stop 09/12/18 at 05:29; Status DC Sodium Chloride 2,340 ml @ 2,340 mls/hr Q1H IV Last administered on 09/12/18at 03:02; Start 09/12/18 at 02:47; Stop 09/12/18 at 03:06; Status DC Ondansetron HCl (Zofran) 4 mg PRN Q8HRS PRN IV NAUSEA/VOMITING 1ST CHOICE; Start 09/12/18 at 03:00; Stop 09/13/18 at 02:59; Status DC Albuterol/ Ipratropium (Duoneb) 3 ml RTQID NEB Last administered on 09/13/18at 15:52; Start 09/12/18 at 08:00; Stop 09/13/18 at 07:59; Status DC Sodium Chloride 1,000 ml @ 1,000 mls/hr Q1H IV Last administered on 09/12/18at 04:06; Start 09/12/18 at 03:06; Stop 09/12/18 at 04:40; Status DC Acetaminophen/ Hydrocodone Bitart (Lortab 5/325) 7.5 tab PRN Q6HRS PRN PO MODERATE PAIN; Start 09/12/18 at 04:30; Stop 09/12/18 at 04:46; Status DC Lactobacillus Rhamnosus (Culturelle) 1 cap BID PO Last administered on 09/12/18at 08:22; Start 09/12/18 at 09:00; Stop 09/16/18 at 10:40; Status DC Acetaminophen/ Hydrocodone Bitart (Lortab 5/325) 1 tab PRN Q6HRS PRN PO MODERATE PAIN Last administered on 09/12/18at 04:54; Start 09/12/18 at 04:46 Vancomycin HCl 1.25 gm/Sodium Chloride 250 ml @ 167 mls/hr Q18H IV ; Start 09/12/18 at 23:00; Stop 09/12/18 at 23:00; Status DC Vancomycin HCl (Vancomycin Trough Level) 1 each 1X ONCE MC ; Start 09/13/18 at 16:30; Stop 09/13/18 at 16:30; Status DC Furosemide (Lasix) 40 mg 1X ONCE IVP Last administered on 09/12/18at 13:36; Start 09/12/18 at 12:45; Stop 09/12/18 at 12:46; Status DC Potassium Chloride (Klor-Con) 40 meq 1X ONCE PO Last administered on 09/12/18at 13:36; Start 09/12/18 at 12:45; Stop 09/12/18 at 12:46; Status DC Piperacillin Sod/ Tazobactam Sod 3.375 gm/Sodium Chloride 50 ml @ 100 mls/hr Q6HRS IV Last administered on 09/13/18at 05:37; Start 09/12/18 at 14:00; Stop 09/13/18 at 10:14; Status DC Aspirin (Children'S Aspirin) 81 mg BID PO ; Start 09/12/18 at 21:00 Atorvastatin Calcium (Lipitor) 40 mg QHS PO ; Start 09/12/18 at 21:00 Digoxin (Lanoxin) 125 mcg DAILY PO Last administered on 09/12/18at 15:29; Start 09/12/18 at 15:00 Metoprolol Tartrate (Lopressor) 100 mg DAILY PO Last administered on 09/12/18at 15:28; Start 09/12/18 at 15:00; Stop 09/13/18 at 12:48; Status DC Warfarin Sodium (Coumadin) 5 mg [id number] PO Last administered on 09/12/18at 15:28; Start 09/12/18 at 16:00; Stop 09/14/18 at 14:06; Status DC Warfarin Sodium (Coumadin) 7.5 mg We PO ; Start 09/18/18 at 16:00; Stop 09/18/18 at 16:00; Status DC Magnesium Sulfate 50 ml @ 25 mls/hr 1X ONCE IV Last administered on 09/12/18at 15:32; Start 09/12/18 at 15:00; Stop 09/12/18 at 16:59; Status DC Warfarin Sodium (Coumadin Per Physician) 1 each PRN DAILY PRN MC SEE COMMENTS Last administered on 09/13/18at 14:43; Start 09/12/18 at 15:15; Stop 09/14/18 at 12:14; Status DC Diltiazem HCl 125 mg/Dextrose 125 ml @ 5 mls/hr CONT PRN IV SEE I/O RECORD; Start 09/12/18 at 19:15 Sodium Chloride 1,000 ml @ 999 mls/hr 1X ONCE IV Last administered on 09/12/18at 20:16; Start 09/12/18 at 20:15; Stop 09/12/18 at 21:15; Status DC Meropenem 500 mg/ Sodium Chloride 50 ml @ 100 mls/hr Q6HRS IV Last administered on 09/18/18at 05:29; Start 09/13/18 at 12:00 Micafungin Sodium 100 mg/Dextrose 100 ml @ 100 mls/hr Q24H IV Last administered on 09/15/18at 12:39; Start 09/13/18 at 12:00; Stop 09/16/18 at 08:20; Status DC Linezolid (Zyvox) 600 mg BID PO ; Start 09/13/18 at 10:15; Stop 09/13/18 at 10:17; Status DC Linezolid/Dextrose 300 ml @ 300 mls/hr Q12HR IV Last administered on 09/15/18 20:39; Start 09/13/18 at 10:30; Stop 09/16/18 at 08:20; Status DC Metoprolol Tartrate (Lopressor Vial) 5 mg Q6HRS IVP Last administered on 09/18/18 05:30; Start 09/13/18 at 13:00 Sodium Chloride 1,000 ml @ 60 mls/hr 1X ONCE IV Last administered on 09/13/18 13:45; Start 09/13/18 at 13:00; Stop 09/14/18 at 05:39; Status DC Amino Acids/ Glycerin/ Electrolytes 1,000 ml @ 80 mls/hr [id number] IV Last administered on 09/13/18 17:43; Start 09/13/18 at 14:00; Stop 09/14/18 at 22:00; Status DC Furosemide (Lasix) 40 mg 1X ONCE IVP Last administered on 09/13/18 16:10; Start 09/13/18 at 14:30; Stop 09/13/18 at 14:31; Status DC Barium Sulfate (Varibar Thin Liquid Apple) 148 gm 1X ONCE PO ; Start 09/13/18 at 14:15; Stop 09/13/18 at 14:21; Status DC Fluocinonide (Lidex) 1 mihaela BID TP Last administered on 09/17/18 20:15; Start 09/13/18 at 15:00 Tamsulosin HCl (Flomax) 0.4 mg DAILY PO ; Start 09/13/18 at 15:00 Albuterol/ Ipratropium (Duoneb) 3 ml RTQID NEB Last administered on 09/18/18 08:08; Start 09/13/18 at 08:00 Info (Tpn Per Pharmacy) 1 each PRN DAILY PRN MC SEE COMMENTS Last administered on 09/17/18 13:40; Start 09/14/18 at 12:15 Saliva Substitute (Biotene Moisturizing Mouth) 2 spray PRN Q15MIN PRN PO DRY MOUTH Last administered on 6/8/19at 21:06; Start 09/14/18 at 12:15 Clotrimazole (Mycelex) 10 mg 5XDAY MM Last administered on 09/16/18at 05:13; Start 09/14/18 at 14:00; Stop 09/16/18 at 08:02; Status DC Warfarin Sodium (Coumadin Per Pharmacy) 1 each PRN DAILY PRN MC SEE COMMENTS; Start 09/14/18 at 12:15; Stop 09/14/18 at 14:05; Status DC Enoxaparin Sodium (Lovenox Per Pharmacy Treatment Dosing) 1 each PRN DAILY PRN MC SEE COMMENTS; Start 09/14/18 at 14:15 Potassium Phosphate 13.6 mmol/Dextrose 104.5333 ml @ 52.267 m... 1X ONCE IV ; Start 09/14/18 at 16:00; Stop 09/14/18 at 17:59; Status Cancel Sodium Chloride 45 meq/Sodium Acetate 45 meq/ Potassium Chloride 25 meq/ Potassium Acetate 25 meq/Potassium Phosphate 20.4 mmol/Magnesium Sulfate 10 meq/ Multivitamins 10 ml/Chromium/ Copper/Manganese/ Seleni/Zn 1 ml/ Total Parenteral Nutrition/Amino Acids/Dextrose/ Fat Emulsion Intravenous 1,512 ml @ 63 mls/hr TPN CONT IV Last administered on 09/14/18at 21:21; Start 09/14/18 at 22:00; Stop 09/15/18 at 21:59; Status DC Potassium Chloride/Water 100 ml @ 100 mls/hr Q1H IV Last administered on 09/14/18at 21:23; Start 09/14/18 at 16:00; Stop 09/14/18 at 19:59; Status DC Dextrose (Dextrose 50%-Water Syringe) 12.5 gm PRN Q15MIN PRN IV SEE COMMENTS; Start 09/14/18 at 18:30 Diclofenac Sodium (Voltaren) 1 mihaela PRN BID PRN TP KNEE PAIN Last administered on 09/17/18at 20:15; Start 09/15/18 at 02:00 Acetaminophen (Tylenol Supp) 325 mg PRN Q6HRS PRN IA MILD PAIN / TEMP; Start 09/15/18 at 11:30 Sodium Chloride 45 meq/Sodium Acetate 10 meq/ Sodium Phosphate 15 mmol/Potassium Chloride 25 meq/ Potassium Acetate 25 meq/Potassium Phosphate 20.4 mmol/Magnesium Sulfate 10 meq/ Multivitamins 10 ml/Chromium/ Copper/Manganese/ Seleni/Zn 1 ml/ Total Parenteral Nutrition/Amino Acids/Dextrose/ Fat Emuls... 1,512 ml @ 63 mls/hr TPN CONT IV Last administered on 09/15/18at 20:39; Start 09/15/18 at 22:00; Stop 09/16/18 at 21:59; Status DC Potassium Chloride/Water 100 ml @ 100 mls/hr Q1H IV ; Start 09/16/18 at 09:00; Stop 09/16/18 at 12:59; Status Cancel Enoxaparin Sodium (Lovenox 100mg Syringe) 90 mg Q12HR SQ Last administered on 09/17/18at 20:15; Start 09/16/18 at 11:30 Info (Anti-Coagulation Monitoring By Pharmacy) 1 each PRN DAILY PRN MC SEE COMMENTS Last administered on 09/17/18at 15:19; Start 09/16/18 at 11:00 Potassium Chloride/Water 50 ml @ 50 mls/hr Q1H IV Last administered on 09/16/18at 14:27; Start 09/16/18 at 13:00; Stop 09/16/18 at 14:59; Status DC Sodium Chloride 45 meq/Sodium Acetate 10 meq/ Sodium Phosphate 15 mmol/Potassium Chloride 25 meq/ Potassium Acetate 55 meq/Potassium Phosphate 20.4 mmol/Magnesium Sulfate 20 meq/ Multivitamins 10 ml/Chromium/ Copper/Manganese/ Seleni/Zn 1 ml/ Total Parenteral Nutrition/Amino Acids/Dextrose/ Fat Emuls... 1,512 ml @ 63 mls/hr TPN CONT IV Last administered on 09/16/18at 20:37; Start 09/16/18 at 22:00; Stop 09/17/18 at 21:59; Status DC Phytonadione (Vitamin K Ampule) 5 mg 1X ONCE SQ Last administered on 09/17/18at 12:56; Start 09/17/18 at 12:30; Stop 09/17/18 at 12:31; Status DC Sodium Chloride 45 meq/Sodium Acetate 10 meq/ Sodium Phosphate 15 mmol/Potassium Chloride 25 meq/ Potassium Acetate 55 meq/Potassium Phosphate 20.4 mmol/Magnesium Sulfate 20 meq/ Multivitamins 10 ml/Chromium/ Copper/Manganese/ Seleni/Zn 1 ml/ Total Parenteral Nutrition/Amino Acids/Dextrose/ Fat Emuls... 1,512 ml @ 63 mls/hr TPN CONT IV ; Start 09/17/18 at 22:00; Stop 09/18/18 at 21:59 Amino Acids/ Glycerin/ Electrolytes 1,000 ml @ 75 mls/hr [id number] IV Last administered on 09/17/18at 20:14; Start 09/17/18 at 20:00; Stop 09/18/18 at 09:19 Active Scripts Active Reported Colace (Docusate Sodium) 100 Mg Capsule 1 Cap PO TID Metamucil Powder (Psyllium Seed (with Sugar)) 575 Gm Powder 575 Gm PO DAILY [place] 5-325 Tablet (Acetaminophen/Hydrocodone Bitart) 1 Each Tablet 7.5 Mg PO PRN Q6HRS PRN LAST DOSE GIVEN: Atorvastatin Calcium 40 Mg Tablet 1 Tab PO DAILY Metoprolol Tartrate 100 Mg Tablet 100 Mg PO DAILY Tamsulosin Hcl 0.4 Mg Cap.er.24h 0.4 Mg PO HS DAILY Vitamin C (Ascorbic Acid) 500 Mg Tablet 250 Mg PO DAILY Warfarin Sodium 5 Mg Tablet 1.5 Tab PO QWE Warfarin Sodium 5 Mg Tablet 1 Tab PO DAILY EXCEPT WED. Aspirin 81 Mg Tab.chew 81 Mg PO BID Lanoxin (Digoxin) 125 Mcg Tablet 125 Mcg PO DAILY Vitals/I & O Vital Sign - Last 24 Hours 09/17/18 09/17/18 09/17/18 09/17/18 09:00 10:55 11:11 12:27 Temp 97.6 97.6 Pulse 97 96 96 Resp 18 B/P (MAP) 137/78 143/76 (98) 143/76 Pulse Ox 92 96 O2 Delivery Room Air Room Air 09/17/18 09/17/18 09/17/18 09/17/18 14:46 15:12 16:00 18:29 Temp 100.2 98.7 100.2 98.7 Pulse 97 97 Resp 18 B/P (MAP) 144/78 (100) 144/78 Pulse Ox 91 97 O2 Delivery Room Air Room Air 09/17/18 09/17/18 09/17/18 09/17/18 19:25 19:44 20:12 22:43 Temp 99.2 97.7 99.2 97.7 Pulse 87 92 Resp 18 22 B/P (MAP) 124/72 (89) 117/64 (81) Pulse Ox 94 97 93 O2 Delivery Room Air Room Air Room Air Room Air O2 Flow Rate 2.0 09/17/18 09/18/18 09/18/18 09/18/18 23:41 02:49 05:30 07:00 Temp 98.8 98.3 98.8 98.3 Pulse 92 90 90 77 Resp 22 22 B/P (MAP) 117/64 138/86 (103) 138/86 142/86 (104) Pulse Ox 91 95 O2 Delivery Room Air Room Air 09/18/18 09/18/18 08:00 08:10 Pulse Ox 98 O2 Delivery Room Air Room Air Intake and Output 09/17/18 09/17/18 09/18/18 14:59 22:59 06:59 Intake Total 800 ml 100 ml Balance 800 ml 100 ml Nutrition Consultation Dietary Evaluation: Recommendations by RD: Decrease Calorie Intake Comments: REC adjust TPN macronutrients to followin g AA, 250 g dextrose, 20 g lipid REC feeding tube placement (Dobhoff vs PEG pending duration of NPO) w/tube feedings per following: Glucerna 1.2@goal rate 65 ml/hr w/150 ml water flushes q4 hrs Goal oral diet: ADA/cardiac w/consistency and textures per [employer] Expected Outcomes/Goals: Nutrition support (TPN vs tube feeding) for nutrition needs while pt remains NPO Malnutrition Findings: Food and Nutrition Intake (Sev: <50% est energy req 5days Weight Status: Appropriate RANDALL CLARK MD Sep 18, 2018 08:27
[2018-09-18] MEDS: FLUOCINONIDE 0.05% TOPICAL CREAM 15 GM TUBE. TP SCH ×2 (08:39→22:43)
--- NOTE | 2018-09-18 08:52 | PDOC ---
Infectious Disease Note Subjective Subjective feeling good says FLACO SAM no n/v/d/ Vital Sign Vital Signs Vital Signs Date Time Temp Pulse Resp B/P (MAP) Pulse Ox O2 Delivery O2 Flow Rate FiO2 09/18/18 08:10 98 Room Air 09/18/18 07:00 98.3 77 22 142/86 (104) 98.3 09/17/18 19:25 2.0 Physical Exam PHYSICAL EXAM GENERAL: Propped up in bed, alert, HEENT: Pupils equal, Oral cavity, pharynx clear with some questionable dentition. NECK: Supple, no JVD. LUNGS: Clear anteriorly, nonlabored HEART: S1, S2. Pacemaker without signs of complications. ABDOMEN: Positive bowel sounds, soft, nontender, left lower quadrant incision is well approximated, no drainage, erythema or warmth. EXTREMITIES: Without clubbing, cyanosis nor gross edema. SKIN: Warm to touch without signs of rash. NEUROLOGIC: Alert, seems little confused RUE-PICC (09/14) clean Labs Lab Laboratory Tests Test 09/17/18 11:36 09/17/18 18:07 09/18/18 00:36 09/18/18 03:40 Glucose (Fingerstick) 131 mg/dL (70-99) 89 mg/dL (70-99) 103 mg/dL (70-99) Prothrombin Time 17.8 SEC (11.7-14.0) Prothromb Time International Ratio 1.5 (0.8-1.1) Sodium Level 145 mmol/L (136-145) Potassium Level 4.4 mmol/L (3.5-5.1) Chloride Level 110 mmol/L (98-107) Carbon Dioxide Level 25 mmol/L (21-32) Anion Gap 10 (6-14) Blood Urea Nitrogen 27 mg/dL (8-26) Creatinine 0.9 mg/dL (0.7-1.3) Estimated GFR (Cockcroft-Gault) 96.8 Glucose Level 113 mg/dL (70-99) Calcium Level 9.5 mg/dL (8.5-10.1) Test 09/18/18 06:30 Glucose (Fingerstick) 98 mg/dL (70-99) Micro Microbiology 09/12/18 Blood Culture - Preliminary, Resulted NO GROWTH AFTER 4 DAYS 09/13/18 Urine Culture - Final, Complete 09/13/18 Urine Culture Result 1 (MOI) - Final, Complete Objective Assessment Fever, improved Bandemia Leukocytosis Possible UTI - c/o urinary complications prior to admit; yeast present S/p repair of incarcerated left inguinal hernia, had actually herniations on both sides of the cord structures at the internal inguinal ring 09/09 Acute on chronic diastolic HF; recent echo with preserved LV systolic function as noted above. CAD; catheterization 08/2018 with [employer] of LAD, which is unchanged from previous cath in 2013. Stable CP free. Permanent AFIB; rate controlled. on warfarin for stroke prevention. INR 2.7, PPM Diabetes, II Dysphagia Plan Plan of Care cont meropenem, Probiotics Cultures neg so far Monitor WBC/temp Maintain aspiration precautions pt/ot D/w nursing sputum culture PEG today AUSTIN TIJERINA MD Sep 18, 2018 08:52
--- NOTE | 2018-09-18 10:08 | PDOC ---
PULMONARY PROGRESS NOTES Subjective PT NOT SOA AT TIMES CONFUSED Vitals Vital Signs Date Time Temp Pulse Resp B/P (MAP) Pulse Ox O2 Delivery O2 Flow Rate FiO2 09/18/18 08:10 98 Room Air 09/18/18 07:00 98.3 77 22 142/86 (104) 98.3 09/17/18 19:25 2.0 ROS: No Nausea, No Chest Pain, No Abdominal Pain, No Increase Cough General: Alert HEENT: Other (nc at perrl) Lungs: Crackles Cardiovascular: S1, S2 Abdomen: Soft, Non-tender Neuro Exam: Alert Extremities: No Edema Skin: Warm Labs Laboratory Tests Test 09/16/18 12:10 09/16/18 18:53 09/17/18 04:00 09/17/18 06:16 Glucose (Fingerstick) 83 mg/dL (70-99) 115 mg/dL (70-99) 135 mg/dL (70-99) Sodium Level 144 mmol/L (136-145) Potassium Level 3.9 mmol/L (3.5-5.1) Chloride Level 110 mmol/L (98-107) Carbon Dioxide Level 25 mmol/L (21-32) Anion Gap 9 (6-14) Blood Urea Nitrogen 21 mg/dL (8-26) Creatinine 0.8 mg/dL (0.7-1.3) Estimated GFR (Cockcroft-Gault) 110.9 Glucose Level 112 mg/dL (70-99) Calcium Level 8.1 mg/dL (8.5-10.1) Phosphorus Level 3.2 mg/dL (2.6-4.7) Magnesium Level 1.9 mg/dL (1.8-2.4) Test 09/17/18 11:36 09/17/18 18:07 09/18/18 00:36 09/18/18 03:40 Glucose (Fingerstick) 131 mg/dL (70-99) 89 mg/dL (70-99) 103 mg/dL (70-99) Prothrombin Time 17.8 SEC (11.7-14.0) Prothromb Time International Ratio 1.5 (0.8-1.1) Sodium Level 145 mmol/L (136-145) Potassium Level 4.4 mmol/L (3.5-5.1) Chloride Level 110 mmol/L (98-107) Carbon Dioxide Level 25 mmol/L (21-32) Anion Gap 10 (6-14) Blood Urea Nitrogen 27 mg/dL (8-26) Creatinine 0.9 mg/dL (0.7-1.3) Estimated GFR (Cockcroft-Gault) 96.8 Glucose Level 113 mg/dL (70-99) Calcium Level 9.5 mg/dL (8.5-10.1) Test 09/18/18 06:30 Glucose (Fingerstick) 98 mg/dL (70-99) Laboratory Tests Test 09/17/18 11:36 09/17/18 18:07 09/18/18 00:36 09/18/18 03:40 Glucose (Fingerstick) 131 mg/dL (70-99) 89 mg/dL (70-99) 103 mg/dL (70-99) Prothrombin Time 17.8 SEC (11.7-14.0) Prothromb Time International Ratio 1.5 (0.8-1.1) Sodium Level 145 mmol/L (136-145) Potassium Level 4.4 mmol/L (3.5-5.1) Chloride Level 110 mmol/L (98-107) Carbon Dioxide Level 25 mmol/L (21-32) Anion Gap 10 (6-14) Blood Urea Nitrogen 27 mg/dL (8-26) Creatinine 0.9 mg/dL (0.7-1.3) Estimated GFR (Cockcroft-Gault) 96.8 Glucose Level 113 mg/dL (70-99) Calcium Level 9.5 mg/dL (8.5-10.1) Test 09/18/18 06:30 Glucose (Fingerstick) 98 mg/dL (70-99) Medications Active Scripts Medications Dose Route/Sig Max Daily Dose Days Date Category Dose Instructions Colace (Docusate Sodium) 100 Mg Capsule 1 Cap PO TID 09/09/18 Reported Metamucil Powder (Psyllium Seed (with Sugar)) 575 Gm Powder 575 Gm PO DAILY 09/09/18 Reported [place] 5-325 Tablet (Acetaminophen/Hydrocodone Bitart) 1 Each Tablet 7.5 Mg PO PRN Q6HRS PRN 09/09/18 Reported LAST DOSE GIVEN: Atorvastatin Calcium 40 Mg Tablet 1 Tab PO DAILY 08/12/18 Reported Metoprolol Tartrate 100 Mg Tablet 100 Mg PO DAILY 11/08/17 Reported Tamsulosin Hcl 0.4 Mg Cap.er.24h 0.4 Mg PO HS DAILY 11/08/17 Reported Vitamin C (Ascorbic Acid) 500 Mg Tablet 250 Mg PO DAILY 05/08/14 Reported Warfarin Sodium 5 Mg Tablet 1.5 Tab PO QWE 04/18/14 Reported Warfarin Sodium 5 Mg Tablet 1 Tab PO DAILY EXCEPT WED. 04/18/14 Reported Aspirin 81 Mg Tab.chew 81 Mg PO BID 08/22/13 Reported Lanoxin (Digoxin) 125 Mcg Tablet 125 Mcg PO DAILY 08/22/[address] reviewed 1. Mixed interstitial and airspace infiltrates in both lungs, predominantly dependent. There is likely a component of pulmonary edema, as well as acute infiltrate or pneumonia. 2. 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 Appears similar to that report prior study. 3. Mild splenomegaly. 4. Gynecomastia. Impression . IMPRESSION: 1. Abnormal x-ray/ RECURRENT ASPIRATION 2. Respiratory insufficiency. 3. possible sepsis. 4. Coronary artery disease. 5. Secondary pulmonary hypertension. 6. Obstructive sleep apnea. 7. Acute on chronic diastolic heart failure. 8. Permanent atrial fibrillation along with sick sinus syndrome, status post pacemaker implantation. 9. dysphagia. abnl opv 10. low grade fever GI NOTE /12 D/w Dr. Clark and Giovana - plans to repeat videoswallow tomorrow. Reviewed palliative care note - no clear decision re: PEG tube. Plan . SPOKE WITH DR CLARK WILL PROCEED WITH VIDEO RESP STATUS IS IMPROVING NPO FOR NOW CONTINUE ANTI BREN NUGENT MD Sep 18, 2018 10:08
[2018-09-18 10:52] VITALS: BP 140/80
[2018-09-18] MEDS: ANTI-COAG MONITOR BY PHARMACY. MC PRN (10:59)
--- NOTE | 2018-09-18 11:15 | PDOC ---
Subjective: Subjective: Says he's doing okay, hasn't really thought about the feeding tube. Objective: Objective: D/w Dr. Yadav and Giovana - plans to repeat videoswallow tomorrow. Reviewed palliative care note - no clear decision re: PEG tube. Vital Signs: Vital Signs Date Time Temp Pulse Resp B/P (MAP) Pulse Ox O2 Delivery O2 Flow Rate FiO2 09/18/18 10:52 98.2 80 21 140/80 (100) 94 Room Air 98.2 09/17/18 19:25 2.0 Labs: Laboratory Tests Test 09/17/18 11:36 09/17/18 18:07 09/18/18 00:36 09/18/18 03:40 Glucose (Fingerstick) 131 mg/dL 89 mg/dL 103 mg/dL Prothrombin Time 17.8 SEC Prothromb Time International Ratio 1.5 Sodium Level 145 mmol/L Potassium Level 4.4 mmol/L Chloride Level 110 mmol/L Carbon Dioxide Level 25 mmol/L Anion Gap 10 Blood Urea Nitrogen 27 mg/dL Creatinine 0.9 mg/dL Estimated GFR (Cockcroft-Gault) 96.8 Glucose Level 113 mg/dL Calcium Level 9.5 mg/dL Test 09/18/18 06:30 Glucose (Fingerstick) 98 mg/dL PE: GEN: NAD LUNGS: CTAB HEART: RRR ABD: NABS, S/ND/NT NEURO/PSYCH: A & O 3, cheerful A/P: Oropharyngeal dysphagia/aspiration - on TPN -- Await videoswallow and further family discussion. Could proceed w/ PEG on Sunday if indicated. DAVID LOCK Sep 18, 2018 11:15
--- NOTE | 2018-09-18 11:59 | PDOC2 ---
PALLIATIVE CARE Palliative Care Note Palliative Care Patient alert. Sitting up in bed. Oriented x 2. Has vague understanding of his medical condition. Will likely need to rely on family for final decision for PEG tube No family at bedside. Repeat Video Swallow study tomorrow and discuss. KIMBERLEY BANKS Sep 18, 2018 11:59
--- NOTE | 2018-09-18 12:27 | PDOC ---
CARDIO Progress Notes Date and Time Date of Service 09/18/2018 Time of Evaluation 0850 Subjective Subjective: No Chest Pain, No shortness of breath, No Palpitations Vitals Vitals Vital Signs Date Time Temp Pulse Resp B/P (MAP) Pulse Ox O2 Delivery O2 Flow Rate FiO2 09/18/18 11:21 Room Air 09/18/18 10:52 98.2 80 21 140/80 (100) 94 98.2 09/17/18 19:25 2.0 Weight Weight [ ] Input and Output Intake and Output Intake and Output 09/18/18 07:00 Intake Total 900 ml Balance 900 ml Intake Oral 0 ml IV Total 900 ml # Voids 5 Laboratory Labs Laboratory Tests Test 09/17/18 18:07 09/18/18 00:36 09/18/18 03:40 09/18/18 06:30 Glucose (Fingerstick) 89 mg/dL (70-99) 103 mg/dL (70-99) 98 mg/dL (70-99) Prothrombin Time 17.8 SEC (11.7-14.0) Prothromb Time International Ratio 1.5 (0.8-1.1) Sodium Level 145 mmol/L (136-145) Potassium Level 4.4 mmol/L (3.5-5.1) Chloride Level 110 mmol/L (98-107) Carbon Dioxide Level 25 mmol/L (21-32) Anion Gap 10 (6-14) Blood Urea Nitrogen 27 mg/dL (8-26) Creatinine 0.9 mg/dL (0.7-1.3) Estimated GFR (Cockcroft-Gault) 96.8 Glucose Level 113 mg/dL (70-99) Calcium Level 9.5 mg/dL (8.5-10.1) Test 09/18/18 11:18 Glucose (Fingerstick) 90 mg/dL (70-99) Microbiology Micro Microbiology 09/12/18 Blood Culture - Final, Complete NO GROWTH AFTER 5 DAYS 09/13/18 Urine Culture - Final, Complete 09/13/18 Urine Culture Result 1 (MOI) - Final, Complete Physical Exam HEENT: Neck Supple W Full Motion Chest: Symmetric LUNGS: Other (diminished bases) Heart: irregularly irregular (AFIB) Abdomen: Other (soft) Extremities: No Calf Tenderness, Other (1+ bilateral LE edema) Neurology: alert, oriented, follow commands Assessment Assessment 1. Dysphagia/aspiration: remains NPO, failed swallow study. Possible PEG 2. Acute on chronic diastolic CHF; compensated 3. CAD; catheterization 08/2018 with PREMIX CONCRETE BATCHER of LAD, which is unchanged from previous cath in 2013. clinically stable 4. Permanent AFIB; rate controlled. on warfarin for stroke prevention 5. 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) 6. Nonocclusive Right axillary clot: lovenox in place. 7. Hypertension; controlled 8. DM2/HLP 9. S/P POD#8 incarcerated left inguinal hernia repair 10. Urinary retention: defer to PCP Recommendations Continue IV lopressor while NPO. May convert dig to IV if rate uncontrolled. ASA, statin Supportive care. goals of care being addressed by palliative MIKE ELLIOTT DIPLOMA MEDICAL ASSISTANT Sep 18, 2018 12:27
[2018-09-18] MEDS: TPN PER PHARMACY MC PRN (13:39)
--- NOTE | 2018-09-18 13:40 | NUR ---
Pharmacy TPN Dosing Note S: MAMTA MACIAS is a 87 year old M Currently receiving Central Continuous TPN started 09/14/18 B:Pertinent PMH: failed swallow study Height: 6 feet, 1 inches Weight: 88.702927 kg Current diet: npo LABS: Sodium: 145 Potassium: 4.4 Chloride: 110 Calcium: 9.5 Corrected Calcium: 10.94 Magnesium: 1.9 CO2: 25 SCr: 0.9 Glucose: 98-113 Albumin: 2.2 AST: 27 ALT: 15 TPN FORMULA: TPN TYPE: Central Continuous AMINO ACIDS: 85 gm DEXTROSE: 250 gm LIPIDS: 20 gm SODIUM CHLORIDE: 45 mEq SODIUM ACETATE: 10 mEq SODIUM PHOSPHATE: 15 mmol POTASSIUM CHLORIDE: 25 mEq POTASSIUM ACETATE: 55 mEq POTASSIUM PHOSPHATE: 20.4 mmol MAGNESIUM: 20 mEq CALCIUM: 0 mEq INSULIN: units MULTIPLE VITAMIN: 10 ml TRACE ELEMENTS: 1 ml ml(s) TPN PLAN: Pt lost central access, rec'd Procalamine overnight. Labs appear stable, no changes to TPN. Repeat swallow tomorrow. No labs ordered. R: Continue TPN as above. Will monitor electrolytes, glucose, and tolerance to TPN. AGUSTIN BAER [facility], 09/18/18 [id number]
[2018-09-18 14:25] VITALS: BP 137/85
[2018-09-18] MEDS ORDERED: WARFARIN 7.5 MG TABLET. PO SCH (16:00)
[2018-09-18] MEDS: DEXTROSE 50% 25 GM / 50ML DISP.SYRIN. IV PRN (17:17)
[2018-09-18 19:35] VITALS: BP 125/74
[2018-09-18] MEDS: ATORVASTATIN CALCIUM 40 MG TABLET. PO SCH (21:00)
[2018-09-18] MEDS ORDERED: [UNRECOGNIZED DRUG - OTHER] IV SCH ×12 (22:00)
[2018-09-18] MEDS ORDERED: AMINO ACID IV SCH ×12 (22:00)
[2018-09-18] MEDS ORDERED: DEXTROSE 70% IV SCH ×12 (22:00)
[2018-09-18] MEDS ORDERED: TOTAL PARENTERAL NUTRITION IV SCH ×12 (22:00)
[2018-09-18] MEDS: DICLOFENAC SODIUM 1% TOPICAL GEL 100GM TUBE. TP PRN (22:43)
[2018-09-18 23:05] VITALS: BP 137/63
[2018-09-19 03:37] VITALS: BP 128/75
[2018-09-19 05:13] LABS: BASO # 0.1 x10^3/uL (0.0-0.2); BASO % 1 % (0-3); EOS # 0.2 x10^3/uL (0.0-0.7); EOS % 2 % (0-3); HEMATOCRIT 36.3 % (39.0-53.0); HEMOGLOBIN 11.6 g/dL (13.0-17.5); LYMPH # 0.8 x10^3/uL (1.0-4.8); LYMPH % 10 % (24-48); MEAN CORPUSCULAR HEMOGLOBIN 30 pg (25-35); MEAN CORPUSCULAR HGB CONC 32 g/dL (31-37); MEAN CORPUSCULAR VOLUME 94 fL (79-100); MONO # 0.4 x10^3/uL (0.0-1.1); MONO % 5 % (0-9); NEUT # 6.8 x10^3uL (1.8-7.7); NEUT % 82 % (31-73); PLATELET COUNT 345 x10^3/uL (140-400); RED BLOOD COUNT 3.85 x10^6/uL (4.30-5.70); RED CELL DISTRIBUTION WIDTH 15.9 % (11.5-14.5); WHITE BLOOD COUNT 8.3 x10^3/uL (4.0-11.0)
[2018-09-19] MEDS: MEROPENEM 500 MG in IV NORMAL SALINE 50ML 50 ML IV SCH ×4 (05:46→23:42)
[2018-09-19] MEDS: METOPROLOL TARTRATE 5 MG/5 ML VIAL. IVP SCH ×4 (05:46→23:43)
[2018-09-19 07:00] VITALS: BP 139/60
[2018-09-19] MEDS: IPRATRPIUM/ALBUTEROL 0.5/2.5MG 3 ML NEBU. NEB SCH ×4 (07:54→21:24)
--- NOTE | 2018-09-19 08:25 | PDOC ---
Infectious Disease Note Subjective Subjective feeling good says FLACO FLACO no n/v/d/ Vital Sign Vital Signs Vital Signs Date Time Temp Pulse Resp B/P (MAP) Pulse Ox O2 Delivery O2 Flow Rate FiO2 09/19/18 07:56 94 Nasal Cannula 1.0 09/19/18 07:00 97.6 78 18 139/60 (86) 97.6 Physical Exam PHYSICAL EXAM GENERAL: Propped up in bed, alert, HEENT: Pupils equal, Oral cavity, pharynx clear with some questionable dentition. NECK: Supple, no JVD. LUNGS: Clear anteriorly, nonlabored HEART: S1, S2. Pacemaker without signs of complications. ABDOMEN: Positive bowel sounds, soft, nontender, left lower quadrant incision is well approximated, no drainage, erythema or warmth. EXTREMITIES: Without clubbing, cyanosis nor gross edema. SKIN: Warm to touch without signs of rash. NEUROLOGIC: Alert, seems little confused RUE-PICC (09/14) clean Labs Lab Laboratory Tests Test 09/18/18 11:18 09/18/18 17:12 09/18/18 17:26 09/19/18 02:09 Glucose (Fingerstick) 90 mg/dL (70-99) 67 mg/dL (70-99) 92 mg/dL (70-99) 74 mg/dL (70-99) Test 09/19/18 04:38 White Blood Count 8.3 x10^3/uL (4.0-11.0) Red Blood Count 3.85 x10^6/uL (4.30-5.70) Hemoglobin 11.6 g/dL (13.0-17.5) Hematocrit 36.3 % (39.0-53.0) Mean Corpuscular Volume 94 fL (79-100) Mean Corpuscular Hemoglobin 30 pg (25-35) Mean Corpuscular Hemoglobin Concent 32 g/dL (31-37) Red Cell Distribution Width 15.9 % (11.5-14.5) Platelet Count 345 x10^3/uL (140-400) Neutrophils (%) (Auto) 82 % (31-73) Lymphocytes (%) (Auto) 10 % (24-48) Monocytes (%) (Auto) 5 % (0-9) Eosinophils (%) (Auto) 2 % (0-3) Basophils (%) (Auto) 1 % (0-3) Neutrophils # (Auto) 6.8 x10^3uL (1.8-7.7) Lymphocytes # (Auto) 0.8 x10^3/uL (1.0-4.8) Monocytes # (Auto) 0.4 x10^3/uL (0.0-1.1) Eosinophils # (Auto) 0.2 x10^3/uL (0.0-0.7) Basophils # (Auto) 0.1 x10^3/uL (0.0-0.2) Micro GRAM STAIN WHITE BLOOD CELLS Final Moderate GRAM STAIN EPITHELIAL CELLS Final Moderate GRAM STAIN RESULT 1 Final Comment Few gram positive cocci GRAM STAIN RESULT 2 Final Comment Few gram negative rods. GRAM STAIN EVALUATION Final Comment This specimen is of good quality and is acceptable for routine bacterial culture. Performed at: - [facility], [place], [place] [id number] Cell Biology Scientist: KAYLAH Weiss MD, Phone: [phone] SPUTUM CULTURE- Objective Assessment Fever, improved Bandemia Leukocytosis Possible UTI - c/o urinary complications prior to admit; yeast present S/p repair of incarcerated left inguinal hernia, had actually herniations on both sides of the cord structures at the internal inguinal ring / Acute on chronic diastolic HF; recent echo with preserved LV systolic function as noted above. CAD; catheterization 08/2018 with STOVE CLEANER of LAD, which is unchanged from previous cath in 2013. Stable CP free. Permanent AFIB; rate controlled. on warfarin for stroke prevention. INR 2.7, PPM Diabetes, II Dysphagia Plan Plan of Care cont meropenem, Probiotics Cultures neg so far Monitor WBC/temp Maintain aspiration precautions pt/ot D/w nursing sputum culture AUSTIN TIJERINA MD Sep 19, 2018 08:25
--- NOTE | 2018-09-19 08:35 | PDOC ---
PROGRESS NOTES Chief Complaint Chief Complaint Sepsis, UTI Aspiration PNA Acute on chronic diastolic CHF; Hx CAD; htn, lipids, DM2, Chronic diastolic CHF, with afib Permanent AFIB; rate controlled. on warfarin for stroke prevention Dysphagia, acute Urinary retention, phimosis Weakness, acquired History of Present Illness History of Present Illness Mr Rivero is an 87-year-old gentleman who recently underwent repair of left inguinal incarcerated hernia on 09/09/2018. He was discharged home, had been doing fairly well; however, he developed altered mental status, slurred speech and some fever as well as additional cough and some shortness of air, was brought back to [facility] Emergency Room on 09/12/2018. White count of 15.8 with 88 segs. A chest x-ray was obtained, showed some mild p ulmonary edema from mild basilar infiltrates and interstitial lung disease. Urine culture and blood culture thus far negative. Had difficulty swallowing, is therefore on TPN. Pulled PICC 09/17 at night due to confusion. More alert, feels well today, voiding well. Sitting up in bed. Asking for water. Lots of posterior oropharyngeal concretions removed per nursing. Going for videoswallow today Still weak PPN for nutrition He feels stronger. Still not clear on PEG, makes sense as he had no trouble swallowing prior to admission. PT and OT RUE US for DVT - he is on therapeutic anticoagulation Vitals Vitals Vital Signs Date Time Temp Pulse Resp B/P (MAP) Pulse Ox O2 Delivery O2 Flow Rate FiO2 09/19/18 07:56 94 Nasal Cannula 1.0 09/19/18 07:00 97.6 78 18 139/60 (86) 97.6 Physical Exam Physical Exam GENERAL: Propped up in bed, alert, HEENT: Pupils equal, Oral cavity, pharynx clear with some questionable dentition. NECK: Supple, no JVD. LUNGS: Clear anteriorly, nonlabored HEART: S1, S2. Pacemaker without signs of complications. ABDOMEN: Positive bowel sounds, soft, nontender, left lower quadrant incision is well approximated, no drainage, erythema or warmth. EXTREMITIES: Without clubbing, cyanosis nor gross edema. SKIN: Warm to touch without signs of rash. NEUROLOGIC: Alert, seems little confused RUE-PICC (09/14) clean General: Alert, Oriented X3, Cooperative, No acute distress Heart: Regular rate, No murmurs Lungs: Crackles Extremities: No clubbing Skin: No rashes Labs LABS Laboratory Tests Test 09/18/18 11:18 09/18/18 17:12 09/18/18 17:26 09/19/18 02:09 Glucose (Fingerstick) 90 mg/dL (70-99) 67 mg/dL (70-99) 92 mg/dL (70-99) 74 mg/dL (70-99) Test 09/19/18 04:38 White Blood Count 8.3 x10^3/uL (4.0-11.0) Red Blood Count 3.85 x10^6/uL (4.30-5.70) Hemoglobin 11.6 g/dL (13.0-17.5) Hematocrit 36.3 % (39.0-53.0) Mean Corpuscular Volume 94 fL (79-100) Mean Corpuscular Hemoglobin 30 pg (25-35) Mean Corpuscular Hemoglobin Concent 32 g/dL (31-37) Red Cell Distribution Width 15.9 % (11.5-14.5) Platelet Count 345 x10^3/uL (140-400) Neutrophils (%) (Auto) 82 % (31-73) Lymphocytes (%) (Auto) 10 % (24-48) Monocytes (%) (Auto) 5 % (0-9) Eosinophils (%) (Auto) 2 % (0-3) Basophils (%) (Auto) 1 % (0-3) Neutrophils # (Auto) 6.8 x10^3uL (1.8-7.7) Lymphocytes # (Auto) 0.8 x10^3/uL (1.0-4.8) Monocytes # (Auto) 0.4 x10^3/uL (0.0-1.1) Eosinophils # (Auto) 0.2 x10^3/uL (0.0-0.7) Basophils # (Auto) 0.1 x10^3/uL (0.0-0.2) Assessment and Plan Assessmemt and Plan Problems Medical Problems: (1) Pneumonia Status: Acute (2) Sepsis Status: Acute Comment Review of Relevant I have reviewed the following items tiffany (where applicable) has been applied. Labs Laboratory Tests Test 09/17/18 11:36 09/17/18 18:07 09/18/18 00:36 09/18/18 03:40 Glucose (Fingerstick) 131 mg/dL (70-99) 89 mg/dL (70-99) 103 mg/dL (70-99) Prothrombin Time 17.8 SEC (11.7-14.0) Prothromb Time International Ratio 1.5 (0.8-1.1) Sodium Level 145 mmol/L (136-145) Potassium Level 4.4 mmol/L (3.5-5.1) Chloride Level 110 mmol/L (98-107) Carbon Dioxide Level 25 mmol/L (21-32) Anion Gap 10 (6-14) Blood Urea Nitrogen 27 mg/dL (8-26) Creatinine 0.9 mg/dL (0.7-1.3) Estimated GFR (Cockcroft-Gault) 96.8 Glucose Level 113 mg/dL (70-99) Calcium Level 9.5 mg/dL (8.5-10.1) Test 09/18/18 06:30 09/18/18 11:18 09/18/18 17:12 09/18/18 17:26 Glucose (Fingerstick) 98 mg/dL (70-99) 90 mg/dL (70-99) 67 mg/dL (70-99) 92 mg/dL (70-99) Test 09/19/18 02:09 09/19/18 04:38 Glucose (Fingerstick) 74 mg/dL (70-99) White Blood Count 8.3 x10^3/uL (4.0-11.0) Red Blood Count 3.85 x10^6/uL (4.30-5.70) Hemoglobin 11.6 g/dL (13.0-17.5) Hematocrit 36.3 % (39.0-53.0) Mean Corpuscular Volume 94 fL (79-100) Mean Corpuscular Hemoglobin 30 pg (25-35) Mean Corpuscular Hemoglobin Concent 32 g/dL (31-37) Red Cell Distribution Width 15.9 % (11.5-14.5) Platelet Count 345 x10^3/uL (140-400) Neutrophils (%) (Auto) 82 % (31-73) Lymphocytes (%) (Auto) 10 % (24-48) Monocytes (%) (Auto) 5 % (0-9) Eosinophils (%) (Auto) 2 % (0-3) Basophils (%) (Auto) 1 % (0-3) Neutrophils # (Auto) 6.8 x10^3uL (1.8-7.7) Lymphocytes # (Auto) 0.8 x10^3/uL (1.0-4.8) Monocytes # (Auto) 0.4 x10^3/uL (0.0-1.1) Eosinophils # (Auto) 0.2 x10^3/uL (0.0-0.7) Basophils # (Auto) 0.1 x10^3/uL (0.0-0.2) Laboratory Tests Test 09/18/18 11:18 09/18/18 17:12 09/18/18 17:26 09/19/18 02:09 Glucose (Fingerstick) 90 mg/dL (70-99) 67 mg/dL (70-99) 92 mg/dL (70-99) 74 mg/dL (70-99) Test 09/19/18 04:38 White Blood Count 8.3 x10^3/uL (4.0-11.0) Red Blood Count 3.85 x10^6/uL (4.30-5.70) Hemoglobin 11.6 g/dL (13.0-17.5) Hematocrit 36.3 % (39.0-53.0) Mean Corpuscular Volume 94 fL (79-100) Mean Corpuscular Hemoglobin 30 pg (25-35) Mean Corpuscular Hemoglobin Concent 32 g/dL (31-37) Red Cell Distribution Width 15.9 % (11.5-14.5) Platelet Count 345 x10^3/uL (140-400) Neutrophils (%) (Auto) 82 % (31-73) Lymphocytes (%) (Auto) 10 % (24-48) Monocytes (%) (Auto) 5 % (0-9) Eosinophils (%) (Auto) 2 % (0-3) Basophils (%) (Auto) 1 % (0-3) Neutrophils # (Auto) 6.8 x10^3uL (1.8-7.7) Lymphocytes # (Auto) 0.8 x10^3/uL (1.0-4.8) Monocytes # (Auto) 0.4 x10^3/uL (0.0-1.1) Eosinophils # (Auto) 0.2 x10^3/uL (0.0-0.7) Basophils # (Auto) 0.1 x10^3/uL (0.0-0.2) Microbiology 09/12/18 Blood Culture - Final, Complete NO GROWTH AFTER 5 DAYS 09/17/18 - Final, Resulted 09/17/18 - Final, Resulted 09/17/18 - Final, Resulted 09/17/18 - Final, Resulted 09/17/18 Gram Stain Evaluation - Final, Resulted 09/17/18 Sputum Culture, Resulted Pending 09/13/18 Urine Culture - Final, Complete 09/13/18 Urine Culture Result 1 (MOI) - Final, Complete Medications Current Medications Piperacillin Sod/ Tazobactam Sod 4.5 gm/Sodium Chloride 100 ml @ 200 mls/hr 1X ONCE IV Last administered on 09/12/18at 03:03; Start 09/12/18 at 02:30; Stop 09/12/18 at 02:59; Status DC Vancomycin HCl (Vanco Per Pharmacy) 1 each PRN DAILY PRN MC SEE COMMENTS Last administered on 09/12/18at 05:25; Start 09/12/18 at 02:15; Stop 09/12/18 at 13:38; Status DC Sodium Chloride 1,000 ml @ 1,000 mls/hr 1X ONCE IV Last administered on 09/12/18at 03:02; Start 09/12/18 at 02:30; Stop 09/12/18 at 03:29; Status DC Acetaminophen (Tylenol) 1,000 mg 1X ONCE PO Last administered on 09/12/18at 03:11; Start 09/12/18 at 02:30; Stop 09/12/18 at 02:31; Status DC Vancomycin HCl 2 gm/Sodium Chloride 500 ml @ 250 mls/hr 1X ONCE IV Last administered on 09/12/18at 04:59; Start 09/12/18 at 03:30; Stop 09/12/18 at 05:29; Status DC Sodium Chloride 2,340 ml @ 2,340 mls/hr Q1H IV Last administered on 09/12/18at 03:02; Start 09/12/18 at 02:47; Stop 09/12/18 at 03:06; Status DC Ondansetron HCl (Zofran) 4 mg PRN Q8HRS PRN IV NAUSEA/VOMITING 1ST CHOICE; Start 09/12/18 at 03:00; Stop 09/13/18 at 02:59; Status DC Albuterol/ Ipratropium (Duoneb) 3 ml RTQID NEB Last administered on 09/13/18at 15:52; Start 09/12/18 at 08:00; Stop 09/13/18 at 07:59; Status DC Sodium Chloride 1,000 ml @ 1,000 mls/hr Q1H IV Last administered on 09/12/18at 04:06; Start 09/12/18 at 03:06; Stop 09/12/18 at 04:40; Status DC Acetaminophen/ Hydrocodone Bitart (Lortab 5/325) 7.5 tab PRN Q6HRS PRN PO MODERATE PAIN; Start 09/12/18 at 04:30; Stop 09/12/18 at 04:46; Status DC Lactobacillus Rhamnosus (Culturelle) 1 cap BID PO Last administered on 09/12/18at 08:22; Start 09/12/18 at 09:00; Stop 09/16/18 at 10:40; Status DC Acetaminophen/ Hydrocodone Bitart (Lortab 5/325) 1 tab PRN Q6HRS PRN PO MODERATE PAIN Last administered on 09/12/18at 04:54; Start 09/12/18 at 04:46 Vancomycin HCl 1.25 gm/Sodium Chloride 250 ml @ 167 mls/hr Q18H IV ; Start 09/12/18 at 23:00; Stop 09/12/18 at 23:00; Status DC Vancomycin HCl (Vancomycin Trough Level) 1 each 1X ONCE MC ; Start 09/13/18 at 16:30; Stop 09/13/18 at 16:30; Status DC Furosemide (Lasix) 40 mg 1X ONCE IVP Last administered on 09/12/18at 13:36; Start 09/12/18 at 12:45; Stop 09/12/18 at 12:46; Status DC Potassium Chloride (Klor-Con) 40 meq 1X ONCE PO Last administered on 09/12/18at 13:36; Start 09/12/18 at 12:45; Stop 09/12/18 at 12:46; Status DC Piperacillin Sod/ Tazobactam Sod 3.375 gm/Sodium Chloride 50 ml @ 100 mls/hr Q6HRS IV Last administered on 09/13/18at 05:37; Start 09/12/18 at 14:00; Stop 09/13/18 at 10:14; Status DC Aspirin (Children'S Aspirin) 81 mg BID PO ; Start 09/12/18 at 21:00 Atorvastatin Calcium (Lipitor) 40 mg QHS PO ; Start 09/12/18 at 21:00 Digoxin (Lanoxin) 125 mcg DAILY PO Last administered on 09/12/18at 15:29; Start 09/12/18 at 15:00 Metoprolol Tartrate (Lopressor) 100 mg DAILY PO Last administered on 09/12/18at 15:28; Start 09/12/18 at 15:00; Stop 09/13/18 at 12:48; Status DC Warfarin Sodium (Coumadin) 5 mg [id number] PO Last administered on 09/12/18at 15:28; Start 09/12/18 at 16:00; Stop 09/14/18 at 14:06; Status DC Warfarin Sodium (Coumadin) 7.5 mg We PO ; Start 09/18/18 at 16:00; Stop 09/18/18 at 16:00; Status DC Magnesium Sulfate 50 ml @ 25 mls/hr 1X ONCE IV Last administered on 09/12/18at 15:32; Start 09/12/18 at 15:00; Stop 09/12/18 at 16:59; Status DC Warfarin Sodium (Coumadin Per Physician) 1 each PRN DAILY PRN MC SEE COMMENTS Last administered on 09/13/18at 14:43; Start 09/12/18 at 15:15; Stop 09/14/18 at 12:14; Status DC Diltiazem HCl 125 mg/Dextrose 125 ml @ 5 mls/hr CONT PRN IV SEE I/O RECORD; Start 09/12/18 at 19:15 Sodium Chloride 1,000 ml @ 999 mls/hr 1X ONCE IV Last administered on 09/12/18at 20:16; Start 09/12/18 at 20:15; Stop 09/12/18 at 21:15; Status DC Meropenem 500 mg/ Sodium Chloride 50 ml @ 100 mls/hr Q6HRS IV Last administered on 09/19/18at 05:46; Start 09/13/18 at 12:00 Micafungin Sodium 100 mg/Dextrose 100 ml @ 100 mls/hr Q24H IV Last administered on 09/15/18at 12:39; Start 09/13/18 at 12:00; Stop 09/16/18 at 08:20; Status DC Linezolid (Zyvox) 600 mg BID PO ; Start 09/13/18 at 10:15; Stop 09/13/18 at 10:17; Status DC Linezolid/Dextrose 300 ml @ 300 mls/hr Q12HR IV Last administered on 09/15/18at 20:39; Start 09/13/18 at 10:30; Stop 09/16/18 at 08:20; Status DC Metoprolol Tartrate (Lopressor Vial) 5 mg Q6HRS IVP Last administered on 09/19/18 05:46; Start 09/13/18 at 13:00 Sodium Chloride 1,000 ml @ 60 mls/hr 1X ONCE IV Last administered on 09/13/18at 13:45; Start 09/13/18 at 13:00; Stop 09/14/18 at 05:39; Status DC Amino Acids/ Glycerin/ Electrolytes 1,000 ml @ 80 mls/hr [id number] IV Last administered on 09/13/18at 17:43; Start 09/13/18 at 14:00; Stop 09/14/18 at 22:00; Status DC Furosemide (Lasix) 40 mg 1X ONCE IVP Last administered on 09/13/18at 16:10; Start 09/13/18 at 14:30; Stop 09/13/18 at 14:31; Status DC Barium Sulfate (Varibar Thin Liquid Apple) 148 gm 1X ONCE PO ; Start 09/13/18 at 14:15; Stop 09/13/18 at 14:21; Status DC Fluocinonide (Lidex) 1 mihaela BID TP Last administered on 09/18/18at 22:43; Start 09/13/18 at 15:00 Tamsulosin HCl (Flomax) 0.4 mg DAILY PO ; Start 09/13/18 at 15:00 Albuterol/ Ipratropium (Duoneb) 3 ml RTQID NEB Last administered on 09/19/18at 07:54; Start 09/13/18 at 08:00 Info (Tpn Per Pharmacy) 1 each PRN DAILY PRN MC SEE COMMENTS Last administered on 09/18/18at 13:39; Start 09/14/18 at 12:15 Saliva Substitute (Biotene Moisturizing Mouth) 2 spray PRN Q15MIN PRN PO DRY MOUTH Last administered on 09/14/18at 21:06; Start 09/14/18 at 12:15 Clotrimazole (Mycelex) 10 mg 5XDAY MM Last administered on 09/16/18at 05:13; Start 09/14/18 at 14:00; Stop 09/16/18 at 08:02; Status DC Warfarin Sodium (Coumadin Per Pharmacy) 1 each PRN DAILY PRN MC SEE COMMENTS; Start 09/14/18 at 12:15; Stop 09/14/18 at 14:05; Status DC Enoxaparin Sodium (Lovenox Per Pharmacy Treatment Dosing) 1 each PRN DAILY PRN MC SEE COMMENTS; Start 09/14/18 at 14:15 Potassium Phosphate 13.6 mmol/Dextrose 104.5333 ml @ 52.267 m... 1X ONCE IV ; Start 09/14/18 at 16:00; Stop 09/14/18 at 17:59; Status Cancel Sodium Chloride 45 meq/Sodium Acetate 45 meq/ Potassium Chloride 25 meq/ Potassium Acetate 25 meq/Potassium Phosphate 20.4 mmol/Magnesium Sulfate 10 meq/ Multivitamins 10 ml/Chromium/ Copper/Manganese/ Seleni/Zn 1 ml/ Total Parenteral Nutrition/Amino Acids/Dextrose/ Fat Emulsion Intravenous 1,512 ml @ 63 mls/hr TPN CONT IV Last administered on 09/14/18at 21:21; Start 09/14/18 at 22:00; Stop 09/15/18 at 21:59; Status DC Potassium Chloride/Water 100 ml @ 100 mls/hr Q1H IV Last administered on 09/14/18at 21:23; Start 09/14/18 at 16:00; Stop 09/14/18 at 19:59; Status DC Dextrose (Dextrose 50%-Water Syringe) 12.5 gm PRN Q15MIN PRN IV SEE COMMENTS Last administered on 09/18/18at 17:17; Start 09/14/18 at 18:30 Diclofenac Sodium (Voltaren) 1 mihaela PRN BID PRN TP KNEE PAIN Last administered on 09/18/18at 22:43; Start 09/15/18 at 02:00 Acetaminophen (Tylenol Supp) 325 mg PRN Q6HRS PRN AK MILD PAIN / TEMP; Start 09/15/18 at 11:30 Sodium Chloride 45 meq/Sodium Acetate 10 meq/ Sodium Phosphate 15 mmol/Potassium Chloride 25 meq/ Potassium Acetate 25 meq/Potassium Phosphate 20.4 mmol/Magnes ium Sulfate 10 meq/ Multivitamins 10 ml/Chromium/ Copper/Manganese/ Seleni/Zn 1 ml/ Total Parenteral Nutrition/Amino Acids/Dextrose/ Fat Emuls... 1,512 ml @ 63 mls/hr TPN CONT IV Last administered on 09/15/18at 20:39; Start 09/15/18 at 22:00; Stop 09/16/18 at 21:59; Status DC Potassium Chloride/Water 100 ml @ 100 mls/hr Q1H IV ; Start 09/16/18 at 09:00; Stop 09/16/18 at 12:59; Status Cancel Enoxaparin Sodium (Lovenox 100mg Syringe) 90 mg Q12HR SQ Last administered on 09/18/18at 22:40; Start 09/16/18 at 11:30 Info (Anti-Coagulation Monitoring By Pharmacy) 1 each PRN DAILY PRN MC SEE COMMENTS Last administered on 09/18/18at 10:59; Start 09/16/18 at 11:00 Potassium Chloride/Water 50 ml @ 50 mls/hr Q1H IV Last administered on 09/16/18at 14:27; Start 09/16/18 at 13:00; Stop 09/16/18 at 14:59; Status DC Sodium Chloride 45 meq/Sodium Acetate 10 meq/ Sodium Phosphate 15 mmol/Potassium Chloride 25 meq/ Potassium Acetate 55 meq/Potassium Phosphate 20.4 mmol/Magnesium Sulfate 20 meq/ Multivitamins 10 ml/Chromium/ Copper/Manganese/ Seleni/Zn 1 ml/ Total Parenteral Nutrition/Amino Acids/Dextrose/ Fat Emuls... 1,512 ml @ 63 mls/hr TPN CONT IV Last administered on 09/16/18at 20:37; Start 09/16/18 at 22:00; Stop 09/17/18 at 21:59; Status DC Phytonadione (Vitamin K Ampule) 5 mg 1X ONCE SQ Last administered on 09/17/18at 12:56; Start 09/17/18 at 12:30; Stop 09/17/18 at 12:31; Status DC Sodium Chloride 45 meq/Sodium Acetate 10 meq/ Sodium Phosphate 15 mmol/Potassium Chloride 25 meq/ Potassium Acetate 55 meq/Potassium Phosphate 20.4 mmol/Magnesium Sulfate 20 meq/ Multivitamins 10 ml/Chromium/ Copper/Manganese/ Seleni/Zn 1 ml/ Total Parenteral Nutrition/Amino Acids/Dextrose/ Fat Emuls... 1,512 ml @ 63 mls/hr TPN CONT IV ; Start 09/17/18 at 22:00; Stop 09/18/18 at 21:59; Status DC Amino Acids/ Glycerin/ Electrolytes 1,000 ml @ 75 mls/hr [id number] IV Last administered on 09/17/18at 20:14; Start 09/17/18 at 20:00; Stop 09/18/18 at 09:19; Status DC Sodium Chloride 45 meq/Sodium Acetate 10 meq/ Sodium Phosphate 15 mmol/Potassium Chloride 25 meq/ Potassium Acetate 55 meq/Potassium Phosphate 20.4 mmol/Magnesium Sulfate 20 meq/ Multivitamins 10 ml/Chromium/ Copper/Manganese/ Seleni/Zn 1 ml/ Total Parenteral Nutrition/Amino Acids/Dextrose/ Fat Emuls... 1,512 ml @ 63 mls/hr TPN CONT IV ; Start 09/18/18 at 22:00; Stop 09/19/18 at 21:59 Active Scripts Active Reported Colace (Docusate Sodium) 100 Mg Capsule 1 Cap PO TID Metamucil Powder (Psyllium Seed (with Sugar)) 575 Gm Powder 575 Gm PO DAILY Bruce 5-325 Tablet (Acetaminophen/Hydrocodone Bitart) 1 Each Tablet 7.5 Mg PO PRN Q6HRS PRN LAST DOSE GIVEN: Atorvastatin Calcium 40 Mg Tablet 1 Tab PO DAILY Metoprolol Tartrate 100 Mg Tablet 100 Mg PO DAILY Tamsulosin Hcl 0.4 Mg Cap.er.24h 0.4 Mg PO HS DAILY Vitamin C (Ascorbic Acid) 500 Mg Tablet 250 Mg PO DAILY Warfarin Sodium 5 Mg Tablet 1.5 Tab PO QWE Warfarin Sodium 5 Mg Tablet 1 Tab PO DAILY EXCEPT WED. Aspirin 81 Mg Tab.chew 81 Mg PO BID Lanoxin (Digoxin) 125 Mcg Tablet 125 Mcg PO DAILY Vitals/I & O Vital Sign - Last 24 Hours 609/18/18 09/18/18 09/18/18 10:52 11:21 12:22 14:25 Temp 98.2 98.0 98.2 98.0 Pulse 80 89 84 Resp 21 22 B/P (MAP) 140/80 (100) 150/83 137/85 (102) Pulse Ox 94 95 O2 Delivery Room Air Room Air Room Air 09/18/18 09/18/18 09/18/18 09/18/18 15:19 16:56 19:35 20:00 Temp 98.1 98.1 Pulse 82 81 Resp 18 B/P (MAP) 137/85 125/74 (91) Pulse Ox 97 O2 Delivery Room Air Room Air Room Air O2 Flow Rate 2.0 09/18/18 09/18/18 09/18/18 09/19/18 21:46 22:52 23:05 03:37 Temp 98.1 98.0 98.1 98.0 Pulse 81 88 69 Resp 17 18 B/P (MAP) 125/74 137/63 (87) 128/75 (92) Pulse Ox 96 93 94 O2 Delivery Room Air Room Air Room Air 09/19/18 09/19/18 09/19/18 05:46 07:00 07:56 Temp 97.6 97.6 Pulse 69 78 Resp 18 B/P (MAP) 128/75 139/60 (86) Pulse Ox 94 94 O2 Delivery Room Air Nasal Cannula O2 Flow Rate 1.0 Intake and Output 09/18/18 09/18/18 09/19/18 14:59 22:59 06:59 Intake Total 0 ml 300 ml Output Total 0 ml Balance 0 ml 300 ml Nutrition Consultation Dietary Evaluation: Recommendations by RD: Decrease Calorie Intake, PPN/TPN Comments: REC diet advancement per RADIOGRAPHY TECHNICIAN recommendations s/p videoswallow, goal diet cardiac/ADA If unable to advance diet s/p videoswallow, recommend feeding tube placement (PEG or Dobhoff as appropriate) per following: Glucerna 1.2@goal rate 65 ml/hr w/150 ml water flushes q4 hrs Expected Outcomes/Goals: Nutrition support (TPN vs tube feeding) for nutrition needs while pt remains NPO - met, goal ongoing, new goal established New goal 09/18: Diet advancement pending videoswallow results Malnutrition Findings: Food and Nutrition Intake (Sev: <50% est energy req 5days Weight Status: Appropriate RANDALL CLARK MD Sep 19, 2018 08:35
[2018-09-19] MEDS: TAMSULOSIN 0.4 MG CAP.ER.24H. PO SCH (09:00)
[2018-09-19] MEDS: DIGOXIN 125 MCG TABLET. PO SCH (09:00)
[2018-09-19] MEDS: ASPIRIN CHEWABLE 81 MG TABLET. PO SCH ×2 (09:00→20:46)
[2018-09-19] MEDS: FLUOCINONIDE 0.05% TOPICAL CREAM 15 GM TUBE. TP SCH ×2 (09:04→23:43)
[2018-09-19 11:00] VITALS: BP 115/70
--- NOTE | 2018-09-19 12:05 | PDOC ---
Subjective: Subjective: Up with therapy, has a little knee pain (wearing brace) - otherwise has no complaints. Objective: Vital Signs: Vital Signs Date Time Temp Pulse Resp B/P (MAP) Pulse Ox O2 Delivery O2 Flow Rate FiO2 09/19/18 11:00 98.5 75 18 115/70 (85) 99 Room Air 98.5 09/19/18 07:56 1.0 Labs: Laboratory Tests Test 09/18/18 17:12 09/18/18 17:26 09/19/18 02:09 09/19/18 04:38 Glucose (Fingerstick) 67 mg/dL 92 mg/dL 74 mg/dL White Blood Count 8.3 x10^3/uL Red Blood Count 3.85 x10^6/uL Hemoglobin 11.6 g/dL Hematocrit 36.3 % Mean Corpuscular Volume 94 fL Mean Corpuscular Hemoglobin 30 pg Mean Corpuscular Hemoglobin Concent 32 g/dL Red Cell Distribution Width 15.9 % Platelet Count 345 x10^3/uL Neutrophils (%) (Auto) 82 % Lymphocytes (%) (Auto) 10 % Monocytes (%) (Auto) 5 % Eosinophils (%) (Auto) 2 % Basophils (%) (Auto) 1 % Neutrophils # (Auto) 6.8 x10^3uL Lymphocytes # (Auto) 0.8 x10^3/uL Monocytes # (Auto) 0.4 x10^3/uL Eosinophils # (Auto) 0.2 x10^3/uL Basophils # (Auto) 0.1 x10^3/uL Test 09/19/18 11:53 Glucose (Fingerstick) 67 mg/dL PE: GEN: NAD, walking back to chair w/ walker/assistance from therapy LUNGS: room air NEURO/PSYCH: A & O 3 A/P: Oropharyngeal dysphagia/aspiration - on TPN -- Await videoswallow, family decisions. DAVID LOCK Sep 19, 2018 12:05
[2018-09-19] MEDS ORDERED: BARIUM SULFATE 40% (APPLE) 148 GM PWD. PO ONE (12:15)
[2018-09-19] MEDS: DEXTROSE 50% 25 GM / 50ML DISP.SYRIN. IV PRN (12:23)
--- NOTE | 2018-09-19 14:05 | RAD ---
Video dysphasia study, 09/19/2018: HISTORY: Follow-up aspiration The swallowing mechanism was examined fluoroscopically in the lateral projection while the patient ingested a variety of food materials mixed with barium. 4.2 minutes of fluoroscopy time was utilized. One video fluoroscopic loop was recorded by a member of the speech Department. The patient demonstrated weak pharyngeal peristalsis with a moderate amount of vallecular and piriform residue. When ingesting the thin liquids there was deep laryngeal penetration and minimal nimco aspiration. With the thicker liquids there was a lesser degree of intermittent laryngeal penetration without nimco aspiration. IMPRESSION: Weak pharyngeal peristalsis resulting in moderate intermittent vallecular and piriform sinus residue, as well as mild aspiration of the thin liquids which abated with the thicker materials.
[2018-09-19 15:00] VITALS: BP 128/64
--- NOTE | 2018-09-19 16:14 | NUR ---
SS following up with discharge planning. Pt now on diet with thickened liquids. SS phoned and faxed referral to [facility], ; fax [phone]. SS will await acceptance decision and will proceed accordingly.
--- NOTE | 2018-09-19 17:02 | PDOC ---
PULMONARY PROGRESS NOTES Subjective NOT SOA NOW EATING NO COUGH Vitals Vital Signs Date Time Temp Pulse Resp B/P (MAP) Pulse Ox O2 Delivery O2 Flow Rate FiO2 09/19/18 15:10 93 Nasal Cannula 2.0 09/19/18 15:00 97.9 72 18 128/64 (85) 97.9 ROS: No Nausea, No Chest Pain, No Abdominal Pain, No Increase Cough General: Alert HEENT: Other (nc at perrl) Lungs: Crackles Cardiovascular: S1, S2 Abdomen: Soft, Non-tender Neuro Exam: Alert Extremities: No Edema Skin: Warm Labs Laboratory Tests Test 09/17/18 18:07 09/18/18 00:36 09/18/18 03:40 09/18/18 06:30 Glucose (Fingerstick) 89 mg/dL (70-99) 103 mg/dL (70-99) 98 mg/dL (70-99) Prothrombin Time 17.8 SEC (11.7-14.0) Prothromb Time International Ratio 1.5 (0.8-1.1) Sodium Level 145 mmol/L (136-145) Potassium Level 4.4 mmol/L (3.5-5.1) Chloride Level 110 mmol/L (98-107) Carbon Dioxide Level 25 mmol/L (21-32) Anion Gap 10 (6-14) Blood Urea Nitrogen 27 mg/dL (8-26) Creatinine 0.9 mg/dL (0.7-1.3) Estimated GFR (Cockcroft-Gault) 96.8 Glucose Level 113 mg/dL (70-99) Calcium Level 9.5 mg/dL (8.5-10.1) Test 09/18/18 11:18 09/18/18 17:12 09/18/18 17:26 09/19/18 02:09 Glucose (Fingerstick) 90 mg/dL (70-99) 67 mg/dL (70-99) 92 mg/dL (70-99) 74 mg/dL (70-99) Test 09/19/18 04:38 09/19/18 11:53 White Blood Count 8.3 x10^3/uL (4.0-11.0) Red Blood Count 3.85 x10^6/uL (4.30-5.70) Hemoglobin 11.6 g/dL (13.0-17.5) Hematocrit 36.3 % (39.0-53.0) Mean Corpuscular Volume 94 fL (79-100) Mean Corpuscular Hemoglobin 30 pg (25-35) Mean Corpuscular Hemoglobin Concent 32 g/dL (31-37) Red Cell Distribution Width 15.9 % (11.5-14.5) Platelet Count 345 x10^3/uL (140-400) Neutrophils (%) (Auto) 82 % (31-73) Lymphocytes (%) (Auto) 10 % (24-48) Monocytes (%) (Auto) 5 % (0-9) Eosinophils (%) (Auto) 2 % (0-3) Basophils (%) (Auto) 1 % (0-3) Neutrophils # (Auto) 6.8 x10^3uL (1.8-7.7) Lymphocytes # (Auto) 0.8 x10^3/uL (1.0-4.8) Monocytes # (Auto) 0.4 x10^3/uL (0.0-1.1) Eosinophils # (Auto) 0.2 x10^3/uL (0.0-0.7) Basophils # (Auto) 0.1 x10^3/uL (0.0-0.2) Glucose (Fingerstick) 67 mg/dL (70-99) Laboratory Tests Test 09/18/18 17:12 09/18/18 17:26 09/19/18 02:09 09/19/18 04:38 Glucose (Fingerstick) 67 mg/dL (70-99) 92 mg/dL (70-99) 74 mg/dL (70-99) White Blood Count 8.3 x10^3/uL (4.0-11.0) Red Blood Count 3.85 x10^6/uL (4.30-5.70) Hemoglobin 11.6 g/dL (13.0-17.5) Hematocrit 36.3 % (39.0-53.0) Mean Corpuscular Volume 94 fL (79-100) Mean Corpuscular Hemoglobin 30 pg (25-35) Mean Corpuscular Hemoglobin Concent 32 g/dL (31-37) Red Cell Distribution Width 15.9 % (11.5-14.5) Platelet Count 345 x10^3/uL (140-400) Neutrophils (%) (Auto) 82 % (31-73) Lymphocytes (%) (Auto) 10 % (24-48) Monocytes (%) (Auto) 5 % (0-9) Eosinophils (%) (Auto) 2 % (0-3) Basophils (%) (Auto) 1 % (0-3) Neutrophils # (Auto) 6.8 x10^3uL (1.8-7.7) Lymphocytes # (Auto) 0.8 x10^3/uL (1.0-4.8) Monocytes # (Auto) 0.4 x10^3/uL (0.0-1.1) Eosinophils # (Auto) 0.2 x10^3/uL (0.0-0.7) Basophils # (Auto) 0.1 x10^3/uL (0.0-0.2) Test 09/19/18 11:53 Glucose (Fingerstick) 67 mg/dL (70-99) Medications Active Scripts Medications Dose Route/Sig Max Daily Dose Days Date Category Dose Instructions Colace (Docusate Sodium) 100 Mg Capsule 1 Cap PO TID 09/09/18 Reported Metamucil Powder (Psyllium Seed (with Sugar)) 575 Gm Powder 575 Gm PO DAILY 09/09/18 Reported [employer] 5-325 Tablet (Acetaminophen/Hydrocodone Bitart) 1 Each Tablet 7.5 Mg PO PRN Q6HRS PRN 09/09/18 Reported LAST DOSE GIVEN: Atorvastatin Calcium 40 Mg Tablet 1 Tab PO DAILY 08/12/18 Reported Metoprolol Tartrate 100 Mg Tablet 100 Mg PO DAILY 11/08/17 Reported Tamsulosin Hcl 0.4 Mg Cap.er.24h 0.4 Mg PO HS DAILY 11/08/17 Reported Vitamin C (Ascorbic Acid) 500 Mg Tablet 250 Mg PO DAILY 05/08/14 Reported Warfarin Sodium 5 Mg Tablet 1.5 Tab PO QWE 04/18/14 Reported Warfarin Sodium 5 Mg Tablet 1 Tab PO DAILY EXCEPT WED. 04/18/14 Reported Aspirin 81 Mg Tab.chew 81 Mg PO BID 08/22/13 Reported Lanoxin (Digoxin) 125 Mcg Tablet 125 Mcg PO DAILY 08/22/[address] reviewed 1. Mixed interstitial and airspace infiltrates in both lungs, predominantly dependent. There is likely a component of pulmonary edema, as well as acute infiltrate or pneumonia. 2. 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 Appears similar to that report prior study. 3. Mild splenomegaly. 4. Gynecomastia. Impression . IMPRESSION: 1. Abnormal x-ray/ RECURRENT ASPIRATION 2. Respiratory insufficiency. 3. possible sepsis. 4. Coronary artery disease. 5. Secondary pulmonary hypertension. 6. Obstructive sleep apnea. 7. Acute on chronic diastolic heart failure. 8. Permanent atrial fibrillation along with sick sinus syndrome, status post pacemaker implantation. 9. dysphagia. 10. low grade fever Plan . VIDEO NOTED START DYSPHAGIA DIET RESP STATUS IS IMPROVING TRANSFER TO SNU IN AM ORAL ANTIBX BREN CARDOZO MD Sep 19, 2018 17:02
[2018-09-19 19:00] VITALS: BP 108/60
[2018-09-19] MEDS: ATORVASTATIN CALCIUM 40 MG TABLET. PO SCH (20:46)
[2018-09-19 23:05] VITALS: BP 114/68
[2018-09-20 03:05] VITALS: BP 107/57
[2018-09-20] MEDS: MEROPENEM 500 MG in IV NORMAL SALINE 50ML 50 ML IV SCH ×2 (05:17→12:00)
[2018-09-20] MEDS: METOPROLOL TARTRATE 5 MG/5 ML VIAL. IVP SCH ×2 (05:18→12:00)
[2018-09-20 07:15] VITALS: BP_SYST 119; BP_SYST 133; BP_DIAS 64; BP_DIAS 67
[2018-09-20] MEDS: IPRATRPIUM/ALBUTEROL 0.5/2.5MG 3 ML NEBU. NEB SCH ×2 (07:26→12:00)
[2018-09-20] MEDS: DIGOXIN 125 MCG TABLET. PO SCH (09:04)
[2018-09-20] MEDS: ASPIRIN CHEWABLE 81 MG TABLET. PO SCH (09:04)
[2018-09-20] MEDS: TAMSULOSIN 0.4 MG CAP.ER.24H. PO SCH (09:04)
[2018-09-20] MEDS: FLUOCINONIDE 0.05% TOPICAL CREAM 15 GM TUBE. TP SCH (09:06)
--- NOTE | 2018-09-20 09:47 | PDOC ---
PROGRESS NOTES Chief Complaint Chief Complaint Sepsis, UTI Aspiration PNA Acute on chronic diastolic CHF; Hx CAD; htn, lipids, DM2, Chronic diastolic CHF, with afib Permanent AFIB; rate controlled. on warfarin for stroke prevention Dysphagia, acute Urinary retention, phimosis Weakness, acquired History of Present Illness History of Present Illness Mr Rivero is an 87-year-old gentleman who recently underwent repair of left inguinal incarcerated hernia on 09/09/2018. He was discharged home, had been doing fairly well; however, he developed altered mental status, slurred speech and some fever as well as additional cough and some shortness of air, was brought back to [facility] Emergency Room on 09/12/2018. White count of 15.8 with 88 segs. A chest x-ray was obtained, showed some mild p ulmonary edema from mild basilar infiltrates and interstitial lung disease. Urine culture and blood culture thus far negative. Had difficulty swallowing, is therefore on TPN. Pulled PICC 09/17 at night due to confusion. More alert, feels well today, voiding well. Sitting up in bed. Asking for water. Lots of posterior oropharyngeal concretions removed per nursing. Videoswallow 09/19 - Weak pharyngeal peristalsis resulting in moderate intermittent vallecular and piriform sinus residue, as well as mild aspiration of the thin liquids which abated with the thicker materials. - advanced diet Still weak PPN for nutrition He feels stronger. Still not clear on PEG, makes sense as he had no trouble swallowing prior to admission. PT and OT RUE US for DVT - he is on therapeutic anticoagulation For SNF today Vitals Vitals Vital Signs Date Time Temp Pulse Resp B/P (MAP) Pulse Ox O2 Delivery O2 Flow Rate FiO2 09/20/18 09:04 67 119/67 09/20/18 08:01 Room Air 09/20/18 07:26 98 2.0 09/20/18 07:15 98.3 16 98.3 Physical Exam Physical Exam GENERAL: Propped up in bed, alert, HEENT: Pupils equal, Oral cavity, pharynx clear with some questionable de ntition. NECK: Supple, no JVD. LUNGS: Clear anteriorly, nonlabored HEART: S1, S2. Pacemaker without signs of complications. ABDOMEN: Positive bowel sounds, soft, nontender, left lower quadrant incision is well approximated, no drainage, erythema or warmth. EXTREMITIES: Without clubbing, cyanosis nor gross edema. SKIN: Warm to touch without signs of rash. NEUROLOGIC: Alert, seems little confused RUE-PICC (09/14) clean General: Alert, Oriented X3, Cooperative, No acute distress Heart: Regular rate, No murmurs Lungs: Crackles Extremities: No clubbing Skin: No rashes Labs LABS Laboratory Tests Test 09/19/18 11:53 09/19/18 17:46 Glucose (Fingerstick) 67 mg/dL (70-99) 99 mg/dL (70-99) Assessment and Plan Assessmemt and Plan Problems Medical Problems: (1) Pneumonia Status: Acute (2) Sepsis Status: Acute Comment Review of Relevant I have reviewed the following items tiffany (where applicable) has been applied. Labs Laboratory Tests Test 09/18/18 11:18 09/18/18 17:12 09/18/18 17:26 09/19/18 02:09 Glucose (Fingerstick) 90 mg/dL (70-99) 67 mg/dL (70-99) 92 mg/dL (70-99) 74 mg/dL (70-99) Test 09/19/18 04:38 09/19/18 11:53 09/19/18 17:46 White Blood Count 8.3 x10^3/uL (4.0-11.0) Red Blood Count 3.85 x10^6/uL (4.30-5.70) Hemoglobin 11.6 g/dL (13.0-17.5) Hematocrit 36.3 % (39.0-53.0) Mean Corpuscular Volume 94 fL (79-100) Mean Corpuscular Hemoglobin 30 pg (25-35) Mean Corpuscular Hemoglobin Concent 32 g/dL (31-37) Red Cell Distribution Width 15.9 % (11.5-14.5) Platelet Count 345 x10^3/uL (140-400) Neutrophils (%) (Auto) 82 % (31-73) Lymphocytes (%) (Auto) 10 % (24-48) Monocytes (%) (Auto) 5 % (0-9) Eosinophils (%) (Auto) 2 % (0-3) Basophils (%) (Auto) 1 % (0-3) Neutrophils # (Auto) 6.8 x10^3uL (1.8-7.7) Lymphocytes # (Auto) 0.8 x10^3/uL (1.0-4.8) Monocytes # (Auto) 0.4 x10^3/uL (0.0-1.1) Eosinophils # (Auto) 0.2 x10^3/uL (0.0-0.7) Basophils # (Auto) 0.1 x10^3/uL (0.0-0.2) Glucose (Fingerstick) 67 mg/dL (70-99) 99 mg/dL (70-99) Laboratory Tests Test 09/19/18 11:53 09/19/18 17:46 Glucose (Fingerstick) 67 mg/dL (70-99) 99 mg/dL (70-99) Microbiology 09/12/18 Blood Culture - Final, Complete NO GROWTH AFTER 5 DAYS 09/17/18 - Final, Resulted 09/17/18 - Final, Resulted 09/17/18 - Final, Resulted 09/17/18 - Final, Resulted 09/17/18 Gram Stain Evaluation - Final, Resulted 09/17/18 Sputum Culture, Resulted Pending 09/13/18 Urine Culture - Final, Complete 09/13/18 Urine Culture Result 1 (MOI) - Final, Complete Medications Current Medications Piperacillin Sod/ Tazobactam Sod 4.5 gm/Sodium Chloride 100 ml @ 200 mls/hr 1X ONCE IV Last administered on 09/12/18at 03:03; Start 09/12/18 at 02:30; Stop 09/12/18 at 02:59; Status DC Vancomycin HCl (Vanco Per Pharmacy) 1 each PRN DAILY PRN MC SEE COMMENTS Last administered on 09/12/18at 05:25; Start 09/12/18 at 02:15; Stop 09/12/18 at 13:38; Status DC Sodium Chloride 1,000 ml @ 1,000 mls/hr 1X ONCE IV Last administered on 09/12/18at 03:02; Start 09/12/18 at 02:30; Stop 09/12/18 at 03:29; Status DC Acetaminophen (Tylenol) 1,000 mg 1X ONCE PO Last administered on 09/12/18at 03:11; Start 09/12/18 at 02:30; Stop 09/12/18 at 02:31; Status DC Vancomycin HCl 2 gm/Sodium Chloride 500 ml @ 250 mls/hr 1X ONCE IV Last administered on 09/12/18at 04:59; Start 09/12/18 at 03:30; Stop 09/12/18 at 05:29; Status DC Sodium Chloride 2,340 ml @ 2,340 mls/hr Q1H IV Last administered on 09/12/18at 03:02; Start 09/12/18 at 02:47; Stop 09/12/18 at 03:06; Status DC Ondansetron HCl (Zofran) 4 mg PRN Q8HRS PRN IV NAUSEA/VOMITING 1ST CHOICE; Start 09/12/18 at 03:00; Stop 09/13/18 at 02:59; Status DC Albuterol/ Ipratropium (Duoneb) 3 ml RTQID NEB Last administered on 09/13/18at 15:52; Start 09/12/18 at 08:00; Stop 09/13/18 at 07:59; Status DC Sodium Chloride 1,000 ml @ 1,000 mls/hr Q1H IV Last administered on 09/12/18at 04:06; Start 09/12/18 at 03:06; Stop 09/12/18 at 04:40; Status DC Acetaminophen/ Hydrocodone Bitart (Lortab 5/325) 7.5 tab PRN Q6HRS PRN PO MODERATE PAIN; Start 09/12/18 at 04:30; Stop 09/12/18 at 04:46; Status DC Lactobacillus Rhamnosus (Culturelle) 1 cap BID PO Last administered on 09/12/18at 08:22; Start 09/12/18 at 09:00; Stop 09/16/18 at 10:40; Status DC Acetaminophen/ Hydrocodone Bitart (Lortab 5/325) 1 tab PRN Q6HRS PRN PO MODERATE PAIN Last administered on 09/12/18at 04:54; Start 09/12/18 at 04:46 Vancomycin HCl 1.25 gm/Sodium Chloride 250 ml @ 167 mls/hr Q18H IV ; Start 09/12/18 at 23:00; Stop 09/12/18 at 23:00; Status DC Vancomycin HCl (Vancomycin Trough Level) 1 each 1X ONCE MC ; Start 09/13/18 at 16:30; Stop 09/13/18 at 16:30; Status DC Furosemide (Lasix) 40 mg 1X ONCE IVP Last administered on 09/12/18 13:36; Start 09/12/18 at 12:45; Stop 09/12/18 at 12:46; Status DC Potassium Chloride (Klor-Con) 40 meq 1X ONCE PO Last administered on 09/12/18 13:36; Start 09/12/18 at 12:45; Stop 09/12/18 at 12:46; Status DC Piperacillin Sod/ Tazobactam Sod 3.375 gm/Sodium Chloride 50 ml @ 100 mls/hr Q6HRS IV Last administered on 09/13/18 05:37; Start 09/12/18 at 14:00; Stop 09/13/18 at 10:14; Status DC Aspirin (Children'S Aspirin) 81 mg BID PO Last administered on 09/20/18 09:04; Start 09/12/18 at 21:00 Atorvastatin Calcium (Lipitor) 40 mg QHS PO Last administered on 09/19/18at 20:46; Start 09/12/18 at 21:00 Digoxin (Lanoxin) 125 mcg DAILY PO Last administered on 09/20/18 09:04; Start 09/12/18 at 15:00 Metoprolol Tartrate (Lopressor) 100 mg DAILY PO Last administered on 09/12/18 15:28; Start 09/12/18 at 15:00; Stop 09/13/18 at 12:48; Status DC Warfarin Sodium (Coumadin) 5 mg [id number] PO Last administered on 09/12/18 15:28; Start 09/12/18 at 16:00; Stop 09/14/18 at 14:06; Status DC Warfarin Sodium (Coumadin) 7.5 mg We PO ; Start 09/18/18 at 16:00; Stop 09/18/18 at 16:00; Status DC Magnesium Sulfate 50 ml @ 25 mls/hr 1X ONCE IV Last administered on 09/12/18at 15:32; Start 09/12/18 at 15:00; Stop 09/12/18 at 16:59; Status DC Warfarin Sodium (Coumadin Per Physician) 1 each PRN DAILY PRN MC SEE COMMENTS Last administered on 09/13/18at 14:43; Start 09/12/18 at 15:15; Stop 09/14/18 at 12:14; Status DC Diltiazem HCl 125 mg/Dextrose 125 ml @ 5 mls/hr CONT PRN IV SEE I/O RECORD; Start 09/12/18 at 19:15 Sodium Chloride 1,000 ml @ 999 mls/hr 1X ONCE IV Last administered on 09/12/18at 20:16; Start 09/12/18 at 20:15; Stop 09/12/18 at 21:15; Status DC Meropenem 500 mg/ Sodium Chloride 50 ml @ 100 mls/hr Q6HRS IV Last administered on 09/20/18at 05:17; Start 09/13/18 at 12:00 Micafungin Sodium 100 mg/Dextrose 100 ml @ 100 mls/hr Q24H IV Last administered on 09/15/18at 12:39; Start 09/13/18 at 12:00; Stop 09/16/18 at 08:20; Status DC Linezolid (Zyvox) 600 mg BID PO ; Start 09/13/18 at 10:15; Stop 09/13/18 at 10:17; Status DC Linezolid/Dextrose 300 ml @ 300 mls/hr Q12HR IV Last administered on 09/15/18at 20:39; Start 09/13/18 at 10:30; Stop 09/16/18 at 08:20; Status DC Metoprolol Tartrate (Lopressor Vial) 5 mg Q6HRS IVP Last administered on 09/20/18at 05:18; Start 09/13/18 at 13:00 Sodium Chloride 1,000 ml @ 60 mls/hr 1X ONCE IV Last administered on 09/13/18at 13:45; Start 09/13/18 at 13:00; Stop 09/14/18 at 05:39; Status DC Amino Acids/ Glycerin/ Electrolytes 1,000 ml @ 80 mls/hr [id number] IV Last administered on 09/13/18at 17:43; Start 09/13/18 at 14:00; Stop 09/14/18 at 22:00; Status DC Furosemide (Lasix) 40 mg 1X ONCE IVP Last administered on 09/13/18at 16:10; Start 09/13/18 at 14:30; Stop 09/13/18 at 14:31; Status DC Barium Sulfate (Varibar Thin Liquid Apple) 148 gm 1X ONCE PO ; Start 09/13/18 at 14:15; Stop 09/13/18 at 14:21; Status DC Fluocinonide (Lidex) 1 mihaela BID TP Last administered on 09/20/18at 09:06; Start 09/13/18 at 15:00 Tamsulosin HCl (Flomax) 0.4 mg DAILY PO Last administered on 09/20/18at 09:04; Start 09/13/18 at 15:00 Albuterol/ Ipratropium (Duoneb) 3 ml RTQID NEB Last administered on 09/20/18at 07:26; Start 09/13/18 at 08:00 Info (Tpn Per Pharmacy) 1 each PRN DAILY PRN MC SEE COMMENTS Last administered on 09/18/18at 13:39; Start 09/14/18 at 12:15; Stop 09/19/18 at 12:31; Status DC Saliva Substitute (Biotene Moisturizing Mouth) 2 spray PRN Q15MIN PRN PO DRY MOUTH Last administered on 09/14/18at 21:06; Start 09/14/18 at 12:15 Clotrimazole (Mycelex) 10 mg 5XDAY MM Last administered on 09/16/18at 05:13; Start 09/14/18 at 14:00; Stop 09/16/18 at 08:02; Status DC Warfarin Sodium (Coumadin Per Pharmacy) 1 each PRN DAILY PRN MC SEE COMMENTS; Start 09/14/18 at 12:15; Stop 09/14/18 at 14:05; Status DC Enoxaparin Sodium (Lovenox Per Pharmacy Treatment Dosing) 1 each PRN DAILY PRN MC SEE COMMENTS; Start 09/14/18 at 14:15 Potassium Phosphate 13.6 mmol/Dextrose 104.5333 ml @ 52.267 m... 1X ONCE IV ; Start 09/14/18 at 16:00; Stop 09/14/18 at 17:59; Status Cancel Sodium Chloride 45 meq/Sodium Acetate 45 meq/ Potassium Chloride 25 meq/ Potassium Acetate 25 meq/Potassium Phosphate 20.4 mmol/Magnesium Sulfate 10 meq/ Multivitamins 10 ml/Chromium/ Copper/Manganese/ Seleni/Zn 1 ml/ Total Parenteral Nutrition/Amino Acids/Dextrose/ Fat Emulsion Intravenous 1,512 ml @ 63 mls/hr TPN CONT IV Last administered on 09/14/18 21:21; Start 09/14/18 at 22:00; Stop 09/15/18 at 21:59; Status DC Potassium Chloride/Water 100 ml @ 100 mls/hr Q1H IV Last administered on 09/14/18at 21:23; Start 09/14/18 at 16:00; Stop 09/14/18 at 19:59; Status DC Dextrose (Dextrose 50%-Water Syringe) 12.5 gm PRN Q15MIN PRN IV SEE COMMENTS Last administered on 09/19/18at 12:23; Start 09/14/18 at 18:30 Diclofenac Sodium (Voltaren) 1 mihaela PRN BID PRN TP KNEE PAIN Last administered on 09/18/18at 22:43; Start 09/15/18 at 02:00 Acetaminophen (Tylenol Supp) 325 mg PRN Q6HRS PRN OR MILD PAIN / TEMP; Start 09/15/18 at 11:30 Sodium Chloride 45 meq/Sodium Acetate 10 meq/ Sodium Phosphate 15 mmol/Potassium Chloride 25 meq/ Potassium Acetate 25 meq/Potassium Phosphate 20.4 mmol/Magnesium Sulfate 10 meq/ Multivitamins 10 ml/Chromium/ Copper/Manganese/ Seleni/Zn 1 ml/ Total Parenteral Nutrition/Amino Acids/Dextrose/ Fat Emuls... 1,512 ml @ 63 mls/hr TPN CONT IV Last administered on 09/15/18at 20:39; Start 09/15/18 at 22:00; Stop 09/16/18 at 21:59; Status DC Potassium Chloride/Water 100 ml @ 100 mls/hr Q1H IV ; Start 09/16/18 at 09:00; Stop 09/16/18 at 12:59; Status Cancel Enoxaparin Sodium (Lovenox 100mg Syringe) 90 mg Q12HR SQ Last administered on 09/20/18at 09:05; Start 09/16/18 at 11:30 Info (Anti-Coagulation Monitoring By Pharmacy) 1 each PRN DAILY PRN MC SEE COMMENTS Last administered on 09/18/18at 10:59; Start 09/16/18 at 11:00 Potassium Chloride/Water 50 ml @ 50 mls/hr Q1H IV Last administered on 09/16/18at 14:27; Start 09/16/18 at 13:00; Stop 09/16/18 at 14:59; Status DC Sodium Chloride 45 meq/Sodium Acetate 10 meq/ Sodium Phosphate 15 mmol/Potassium Chloride 25 meq/ Potassium Acetate 55 meq/Potassium Phosphate 20.4 mmol/Magnesium Sulfate 20 meq/ Multivitamins 10 ml/Chromium/ Copper/Manganese/ Seleni/Zn 1 ml/ Total Parenteral Nutrition/Amino Acids/Dextrose/ Fat Emuls... 1,512 ml @ 63 mls/hr TPN CONT IV Last administered on 09/16/18at 20:37; Start 09/16/18 at 22:00; Stop 09/17/18 at 21:59; Status DC Phytonadione (Vitamin K Ampule) 5 mg 1X ONCE SQ Last administered on 09/17/18at 12:56; Start 09/17/18 at 12:30; Stop 09/17/18 at 12:31; Status DC Sodium Chloride 45 meq/Sodium Acetate 10 meq/ Sodium Phosphate 15 mmol/Potassium Chloride 25 meq/ Potassium Acetate 55 meq/Potassium Phosphate 20.4 mmol/Magnesium Sulfate 20 meq/ Multivitamins 10 ml/Chromium/ Copper/Manganese/ Seleni/Zn 1 ml/ Total Parenteral Nutrition/Amino Acids/Dextrose/ Fat Emuls... 1,512 ml @ 63 mls/hr TPN CONT IV ; Start 09/17/18 at 22:00; Stop 09/18/18 at 21:59; Status DC Amino Acids/ Glycerin/ Electrolytes 1,000 ml @ 75 mls/hr [id number] IV Last administered on 09/17/18at 20:14; Start 09/17/18 at 20:00; Stop 09/18/18 at 09:19; Status DC Sodium Chloride 45 meq/Sodium Acetate 10 meq/ Sodium Phosphate 15 mmol/Potassium Chloride 25 meq/ Potassium Acetate 55 meq/Potassium Phosphate 20.4 mmol/Magnesium Sulfate 20 meq/ Multivitamins 10 ml/Chromium/ Copper/Manganese/ Seleni/Zn 1 ml/ Total Parenteral Nutrition/Amino Acids/Dextrose/ Fat Emuls... 1,512 ml @ 63 mls/hr TPN CONT IV ; Start 09/18/18 at 22:00; Stop 09/19/18 at 12:31; Status DC Barium Sulfate (Varibar Thin Liquid Apple) 148 gm 1X ONCE PO Last administered on 09/19/18at 13:40; Start 09/19/18 at 12:15; Stop 09/19/18 at 12:16; Status DC Active Scripts Active Reported Colace (Docusate Sodium) 100 Mg Capsule 1 Cap PO TID Metamucil Powder (Psyllium Seed (with Sugar)) 575 Gm Powder 575 Gm PO DAILY [employer] 5-325 Tablet (Acetaminophen/Hydrocodone Bitart) 1 Each Tablet 7.5 Mg PO PRN Q6HRS PRN LAST DOSE GIVEN: Atorvastatin Calcium 40 Mg Tablet 1 Tab PO DAILY Metoprolol Tartrate 100 Mg Tablet 100 Mg PO DAILY Tamsulosin Hcl 0.4 Mg Cap.er.24h 0.4 Mg PO HS DAILY Vitamin C (Ascorbic Acid) 500 Mg Tablet 250 Mg PO DAILY Warfarin Sodium 5 Mg Tablet 1.5 Tab PO QWE Warfarin Sodium 5 Mg Tablet 1 Tab PO DAILY EXCEPT SUN. Aspirin 81 Mg Tab.chew 81 Mg PO BID Lanoxin (Digoxin) 125 Mcg Tablet 125 Mcg PO DAILY Vitals/I & O Vital Sign - Last 24 Hours 09/19/18 09/19/18 09/19/18 09/19/18 11:00 12:27 12:39 15:00 Temp 98.5 97.9 98.5 97.9 Pulse 75 75 72 Resp 18 18 B/P (MAP) 115/70 (85) 115/70 128/64 (85) Pulse Ox 99 98 96 O2 Delivery Room Air Nasal Cannula Room Air O2 Flow Rate 1.0 09/19/18 09/19/18 09/19/18 09/19/18 15:10 18:19 19:00 19:35 Temp 97.8 97.8 Pulse 87 72 Resp 18 B/P (MAP) 106/61 108/60 (76) Pulse Ox 93 89 O2 Delivery Nasal Cannula Nasal Cannula Room Air O2 Flow Rate 2.0 2.0 09/19/18 09/19/18 09/19/18 09/20/18 21:24 23:05 23:43 03:05 Temp 97.7 98.9 97.7 98.9 Pulse 86 80 81 Resp 18 19 B/P (MAP) 114/68 (83) 114/68 107/57 (74) Pulse Ox 97 94 93 O2 Delivery Nasal Cannula Nasal Cannula Nasal Cannula O2 Flow Rate 2.0 2.0 2.0 09/20/18 09/20/18 09/20/18 09/20/18 05:18 07:15 07:26 08:01 Temp 98.3 98.3 Pulse 81 67 Resp 16 B/P (MAP) 107/57 119/67 (84) Pulse Ox 98 O2 Delivery Nasal Cannula Nasal Cannula Room Air O2 Flow Rate 2.0 2.0 09/20/18 09:04 Pulse 67 B/P (MAP) 119/67 Intake and Output 09/19/18 09/19/18 09/20/18 15:00 23:00 07:00 Intake Total 240 ml 100 ml Balance 240 ml 100 ml Nutrition Consultation Dietary Evaluation: Recommendations by RD: Decrease Calorie Intake, PPN/TPN Comments: REC diet advancement per CLIN APPLICATION SPECIALIST recommendations s/p videoswallow, goal diet cardiac/ADA If unable to advance diet s/p videoswallow, recommend feeding tube placement (PEG or Dobhoff as appropriate) per following: Glucerna 1.2@goal rate 65 ml/hr w/150 ml water flushes q4 hrs Expected Outcomes/Goals: Nutrition support (TPN vs tube feeding) for nutrition needs while pt remains NPO - met, goal ongoing, new goal established New goal 09/18: Diet advancement pending videoswallow results Malnutrition Findings: Food and Nutrition Intake (Sev: <50% est energy req 5days Weight Status: Appropriate RANDALL CLARK MD Sep 20, 2018 09:47
[2018-09-20] MEDS ORDERED: HYDR-3164 PO (09:50)
[2018-09-20] MEDS ORDERED: LEVO500T59 PO (09:50)
--- NOTE | 2018-09-20 09:53 | SNU/HH DC ---
DISCHARGE ORDERS DISCHARGE INFORMATION: DISCHARGE DATE: Sep 20, 2018 FINAL DIAGNOSIS Problems Medical Problems: (1) Pneumonia Status: Acute (2) Sepsis Status: Acute CONDITION ON DISCHARGE: Stable CODE STATUS: Code Status: Full FDC: SNF STAY <30 DAYS: Yes POST DISCHARGE ORDERS: ACTIVITY ORDERS: No restrictions, Resume previous activity, Activity as tolerated WEIGHT BEARING STATUS: No restrictions DIET AFTER DISCHARGE: Cardiac (Dysphagia II nectar thick) WOUND/INCISION CARE: No wound care needed CHECKS AFTER DISCHARGE: CHECKS AFTER DISCHARGE: Check blood press - daily, Check blood sugar, ac/hs, Check your Temp as needed, Weigh Yourself Daily COMMENTS: PLEASE TAKE YOUR MEDS PRESCRIBED !!!!! FOLLOW-UP: PHYSICIAN FOLLOW-UP: CARDIOLOGY NEEDED [phone] ADDITIONAL FOLLOW-UP: YOUR PCP IN 1-2 WEEKS LAB ORDERS FOR FOLLOW-UP: INR 09/23/18 ANTICOAGULATION F/U NEEDED: Warfarin INR 2-3 TREATMENT/EQUIPMENT ORDERS: ADAPTIVE EQUIPMENT NEEDED: None Physical Therapy For: Evalulation/Treatment Occupational Therapy For: Evaluation/Treatment DISCHARGE MEDICATIONS: Home Meds Active Scripts Levofloxacin (LEVAQUIN) 500 Mg Tablet, 1 TAB PO DAILY for Pneumonia for 7 Days, #7 TAB Prov:RANDALL CLARK MD 09/20/18 Hydrocodone/Apap 5-325 (NORCO 5-325 TABLET) 1 Each Tablet, 7.5 MG PO PRN Q6HRS PRN for PAIN for 6 Days, #20 TAB 60 Refills LAST DOSE GIVEN: Prov:RANDALL CLARK MD 09/20/18 Reported Medications Docusate Sodium (COLACE) 100 Mg Capsule, 1 CAP PO TID for constipation, #30 CAP 09/09/18 Psyllium Seed (with Sugar) (Metamucil Powder) 575 Gm Powder, 575 GM PO DAILY for constipation, MISC 09/09/18 Atorvastatin Calcium (ATORVASTATIN CALCIUM) 40 Mg Tablet, 1 TAB PO DAILY for cholesterol, #30 TAB 5 Refills 08/12/18 Metoprolol Tartrate (METOPROLOL TARTRATE) 100 Mg Tablet, 100 MG PO DAILY for HTN A FIB 11/08/17 Tamsulosin Hcl (TAMSULOSIN HCL) 0.4 Mg Cap.er.24h, 0.4 MG PO hs daily, TAB 11/08/17 Ascorbic Acid (VITAMIN C) 500 Mg Tablet, 250 MG PO DAILY 05/08/14 Warfarin Sodium (WARFARIN SODIUM) 5 Mg Tablet, 1.5 TAB PO QWE, #90 TAB 1 Refill 04/18/14 Warfarin Sodium (WARFARIN SODIUM) 5 Mg Tablet, 1 TAB PO daily except Wed., #90 TAB 1 Refill 04/18/14 Aspirin (ASPIRIN) 81 Mg Tab.chew, 81 MG PO BID, TAB.CHEW 08/22/13 Digoxin (LANOXIN) 125 Mcg Tablet, 125 MCG PO DAILY 08/22/13 RANDALL CLARK MD Sep 20, 2018 09:53
--- NOTE | 2018-09-20 10:30 | NUR ---
SS following up with discharge planning. Discharge orders received for [facility], ; fax [phone]. SS phoned and faxed discharge orders to [facility]. Pt will discharge today and go to [facility] at 1200 via [facility] transport, [id number]. Pt, pt's RN, and pt's family notified.
--- NOTE | 2018-09-20 10:41 | PDOC ---
Infectious Disease Note Subjective Subjective feeling good says ROS ROS no n/v/d Vital Sign Vital Signs Vital Signs Date Time Temp Pulse Resp B/P (MAP) Pulse Ox O2 Delivery O2 Flow Rate FiO2 09/20/18 09:04 67 119/67 09/20/18 08:01 Room Air 09/20/18 07:26 98 2.0 09/20/18 07:15 98.3 16 98.3 Physical Exam PHYSICAL EXAM GENERAL: Propped up in bed, alert, HEENT: Pupils equal, Oral cavity, pharynx clear with some questionable den tition. NECK: Supple, no JVD. LUNGS: Clear anteriorly, nonlabored HEART: S1, S2. Pacemaker without signs of complications. ABDOMEN: Positive bowel sounds, soft, nontender, left lower quadrant incision is well approximated, no drainage, erythema or warmth. EXTREMITIES: Without clubbing, cyanosis nor gross edema. SKIN: Warm to touch without signs of rash. NEUROLOGIC: Alert, seems little confused RUE-PICC (09/14) clean Labs Lab Laboratory Tests Test 09/19/18 11:53 09/19/18 17:46 Glucose (Fingerstick) 67 mg/dL (70-99) 99 mg/dL (70-99) Micro GRAM STAIN WHITE BLOOD CELLS Final Moderate GRAM STAIN EPITHELIAL CELLS Final Moderate GRAM STAIN RESULT 1 Final Comment Few gram positive cocci GRAM STAIN RESULT 2 Final Comment Few gram negative rods. GRAM STAIN EVALUATION Final Comment This specimen is of good quality and is acceptable for routine bacterial culture. Performed at: DA - [facility], [place], [place] [id number] Reference Archivist: KAYLAH Weiss MD, Phone: [phone] SPUTUM CULTURE- Objective Assessment Fever, improved Bandemia Leukocytosis Possible UTI - c/o urinary complications prior to admit; yeast present S/p repair of incarcerated left inguinal hernia, had actually herniations on both sides of the cord structures at the internal inguinal ring 09/09 Acute on chronic diastolic HF; recent echo with preserved LV systolic function as noted above. CAD; catheterization 08/2018 with NETWORK DIAGNOSTIC SUPPORT SPECIALIST of LAD, which is unchanged from previous cath in 2013. Stable CP free. Permanent AFIB; rate controlled. on warfarin for stroke prevention. INR 2.7, PPM Diabetes, II Dysphagia Plan Plan of Care cont meropenem, Probiotics Cultures neg so far Monitor WBC/temp Maintain aspiration precautions pt/ot D/w nursing sputum culture still pending d/w hui Ugalde to d/c to [facility], he will follow cultures and adjust AUSTIN TIJERINA MD Sep 20, 2018 10:41
[2018-09-20 11:12] VITALS: BP 108/59
--- NOTE | 2018-09-20 11:20 | NUR ---
REPORT CALLED TO SUMAN AT [facility], QUESTIONS AND CONCERNS ANSWERED, ALL PERSONAL BELONGINGS GATHERED BY THE SURGICAL TECH AND PLACED IN BAGS FOR DISCHARGE, SALINE LOCK REMOVED FROM PATIENTS' LEFT AC NO IV MEDS ARE ORDERED UPON DISCHARGE.
--- NOTE | 2018-09-20 11:42 | PDOC ---
Subjective: Subjective: Says he's tolerating diet and going to PP today. Objective: Vital Signs: Vital Signs Date Time Temp Pulse Resp B/P (MAP) Pulse Ox O2 Delivery O2 Flow Rate FiO2 09/20/18 11:12 98.4 80 16 108/59 (75) 94 Room Air 98.4 09/20/18 07:26 2.0 Labs: Laboratory Tests Test 09/19/18 11:53 09/19/18 17:46 Glucose (Fingerstick) 67 mg/dL 99 mg/dL Imaging: Videoswallow IMPRESSION: Weak pharyngeal peristalsis resulting in moderate intermittent vallecular and piriform sinus residue, as well as mild aspiration of the thin liquids which abated with the thicker materials. Initial Videoswallow Study Report Pt demonstrated reduced base of tongue retraction and impaired hyolaryngeal excursion contributing to silent aspiration of thin liquid via cup and vallecular residue p.swallow of all consistencies. Honey thick liquid pharyngeal residue > nectar thick. Though neither honey thick nor nectar thick was aspirated, intermittent penetration was observed. The residue associated w/honey thick represented an increased risk over that noted w/nectar. Puree also had associated pharyngeal residue but additional swallows and small amts of nectar thick via cup assisted in reducing the severity of this. Solid pharyngeal residue + nectar resulted in deep penetration and increased risk of aspiration. IMPRESSIONS: Moderate oropharyngeal dysphagia w/SILENT aspiration of thin liquids. Con't weakness impacting safety and efficiency of swallow but slightly improved oropharyngeal swallow function vs prior videoswallow of 09/13. Although moderate risk of aspiration is present, modified diet and use of strategies reduce risk. Would consider initiating po diet as rec'd below w/staff supervision. Pt's swallow function may improve w/con't RADIO ENGINEERING TEACHER dysphagia tx & efforts directed at overall strength and medical condition. RECOMMENDATIONS: Following d/w Dr Yadav, initiate dysphagia I diet w/NECTAR thick liquids. Packets of nectar thickener were placed in pt's rm w/graduated cups. Staff will need to thicken liquids to nectar for pt. Diet orders entered, precautions sent to floor. PE: GEN: NAD LUNGS: CTAB HEART: RRR ABD: NABS, S/ND/NT NEURO/PSYCH: A & O 3 A/P: Oropharyngeal dysphagia - RADIO ENGINEERING TEACHER recs as above -- DC per primary. DAVID LOCK Sep 20, 2018 11:42
[2018-09-20 12:00] VITALS: BP 108/59
--- NOTE | 2018-09-20 12:20 | NUR ---
PATIENT LEAVES THE UNIT PER W/C ACCOMPANIED BY THIS LEGAL RESEARCHER, EMOTIONAL SUPPORT GIVEN, FOLLOW UP APPOINTMENTS ENCOURAGED.
--- NOTE | 2018-09-20 12:37 | PDOC2 ---
PALLIATIVE CARE Palliative Care Note Palliative Care Patient alert. Video Swallow Eval. reviewed. Now on a diet. Plan transfer to today. KIMBERLEY BANKS Sep 20, 2018 12:37
--- NOTE | 2018-09-20 14:37 | PDOC ---
PULMONARY PROGRESS NOTES Subjective NOT SOA NOW EATING NO COUGH Vitals Vital Signs Date Time Temp Pulse Resp B/P (MAP) Pulse Ox O2 Delivery O2 Flow Rate FiO2 09/20/18 12:00 80 108/59 09/20/18 11:12 98.4 16 94 Room Air 98.4 09/20/18 07:26 2.0 ROS: No Nausea, No Chest Pain, No Abdominal Pain, No Increase Cough General: Alert HEENT: Other (nc at perrl) Lungs: Crackles Cardiovascular: S1, S2 Abdomen: Soft, Non-tender Neuro Exam: Alert Extremities: No Edema Skin: Warm Labs Laboratory Tests Test 09/18/18 17:12 09/18/18 17:26 09/19/18 02:09 09/19/18 04:38 Glucose (Fingerstick) 67 mg/dL (70-99) 92 mg/dL (70-99) 74 mg/dL (70-99) White Blood Count 8.3 x10^3/uL (4.0-11.0) Red Blood Count 3.85 x10^6/uL (4.30-5.70) Hemoglobin 11.6 g/dL (13.0-17.5) Hematocrit 36.3 % (39.0-53.0) Mean Corpuscular Volume 94 fL (79-100) Mean Corpuscular Hemoglobin 30 pg (25-35) Mean Corpuscular Hemoglobin Concent 32 g/dL (31-37) Red Cell Distribution Width 15.9 % (11.5-14.5) Platelet Count 345 x10^3/uL (140-400) Neutrophils (%) (Auto) 82 % (31-73) Lymphocytes (%) (Auto) 10 % (24-48) Monocytes (%) (Auto) 5 % (0-9) Eosinophils (%) (Auto) 2 % (0-3) Basophils (%) (Auto) 1 % (0-3) Neutrophils # (Auto) 6.8 x10^3uL (1.8-7.7) Lymphocytes # (Auto) 0.8 x10^3/uL (1.0-4.8) Monocytes # (Auto) 0.4 x10^3/uL (0.0-1.1) Eosinophils # (Auto) 0.2 x10^3/uL (0.0-0.7) Basophils # (Auto) 0.1 x10^3/uL (0.0-0.2) Test 09/19/18 11:53 09/19/18 17:46 Glucose (Fingerstick) 67 mg/dL (70-99) 99 mg/dL (70-99) Laboratory Tests Test 09/19/18 17:46 Glucose (Fingerstick) 99 mg/dL (70-99) Medications Active Scripts Medications Dose Route/Sig Max Daily Dose Days Date Category Dose Instructions Colace (Docusate Sodium) 100 Mg Capsule 1 Cap PO TID 09/09/18 Reported Metamucil Powder (Psyllium Seed (with Sugar)) 575 Gm Powder 575 Gm PO DAILY 09/09/18 Reported Milroy 5-325 Tablet (Acetaminophen/Hydrocodone Bitart) 1 Each Tablet 7.5 Mg PO PRN Q6HRS PRN 09/09/18 Reported LAST DOSE GIVEN: Atorvastatin Calcium 40 Mg Tablet 1 Tab PO DAILY 08/12/18 Reported Metoprolol Tartrate 100 Mg Tablet 100 Mg PO DAILY 11/08/17 Reported Tamsulosin Hcl 0.4 Mg Cap.er.24h 0.4 Mg PO HS DAILY 11/08/17 Reported Vitamin C (Ascorbic Acid) 500 Mg Tablet 250 Mg PO DAILY 05/08/14 Reported Warfarin Sodium 5 Mg Tablet 1.5 Tab PO QWE 04/18/14 Reported Warfarin Sodium 5 Mg Tablet 1 Tab PO DAILY EXCEPT WED. 04/18/14 Reported Aspirin 81 Mg Tab.chew 81 Mg PO BID 08/22/13 Reported Lanoxin (Digoxin) 125 Mcg Tablet 125 Mcg PO DAILY 08/22/[address] reviewed 1. Mixed interstitial and airspace infiltrates in both lungs, predominantly dependent. There is likely a component of pulmonary edema, as well as acute infiltrate or pneumonia. 2. 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 Appears similar to that report prior study. 3. Mild splenomegaly. 4. Gynecomastia. Impression . IMPRESSION: 1. Abnormal x-ray/ RECURRENT ASPIRATION 2. Respiratory insufficiency. 3. possible sepsis. 4. Coronary artery disease. 5. Secondary pulmonary hypertension. 6. Obstructive sleep apnea. 7. Acute on chronic diastolic heart failure. 8. Permanent atrial fibrillation along with sick sinus syndrome, status post pacemaker implantation. 9. dysphagia. 10. low grade fever Plan . OK TO TRANSFER FOLLOW UP WITH ME NEEDED RESP STATUS IS COMPENSATED BREN CARDOZO MD Sep 20, 2018 14:37
== END 2018-09-20 12:38 | DRG 871 ==
LOC: ER 01:39 → 6 SOUTH 02:43 → 2 NORTH 18:21
PROVIDERS: ADMIT Internal Medicine; ATTEND Internal Medicine
PROC: 02HV33Z Insertion of Infusion Device into Superior Vena Cava, Percutaneous Approach (ICD-10-PCS; principal; 2018-09-14)
PROC: B548ZZA Ultrasonography of Superior Vena Cava, Guidance (ICD-10-PCS; 2018-09-14)
DX: A41.9 Sepsis, unspecified organism (principal); I50.33 Acute on chronic diastolic (congestive) heart failure; J69.0 Pneumonitis due to inhalation of food and vomit; N39.0 Urinary tract infection, site not specified; T82.868A Thrombosis due to vascular prosthetic devices, implants and grafts, initial encounter; E11.9 Type 2 diabetes mellitus without complications; E78.00 Pure hypercholesterolemia, unspecified; E78.5 Hyperlipidemia, unspecified; E87.6 Hypokalemia; G47.33 Obstructive sleep apnea (adult) (pediatric); I11.0 Hypertensive heart disease with heart failure; I25.10 Atherosclerotic heart disease of native coronary artery without angina pectoris; I25.82 Chronic total occlusion of coronary artery; I27.29 Other secondary pulmonary hypertension; I48.2 Chronic atrial fibrillation; M19.90 Unspecified osteoarthritis, unspecified site; J44.9 Chronic obstructive pulmonary disease, unspecified; N47.1 Phimosis; R13.12 Dysphagia, oropharyngeal phase; Z79.01 Long term (current) use of anticoagulants; Z79.82 Long term (current) use of aspirin; Z82.0 Family history of epilepsy and other diseases of the nervous system; Z82.49 Family history of ischemic heart disease and other diseases of the circulatory system; Z90.49 Acquired absence of other specified parts of digestive tract; Z95.0 Presence of cardiac pacemaker; Z83.3 Family history of diabetes mellitus; Z79.899 Other long term (current) drug therapy
CPT/HCPCS: 36415; 36569; 71045; 71250; 74230; 80048; 80053; 80076; 80202; 81001; 82962; 83605; 83735; 83880; 84100; 84145; 84478; 84484; 85007; 85025; 85610; 85730; 87040; 87070; 87086; 87205; 93005; 93971; 94640; 94760; 96361; 96365; J1650; J1940; J2020; J2185; J2248; J2543; J3370; J3430; J3475; J3480; J3490; J7030; J7040; J7042; J7620; 92526; 92610; 92611; 97110; 97116; 97530; 97535; 99291-25

== ENCOUNTER → 2019-09-17 | Outpatient (CLI) | payer MEDICARE ==
[~2019-09-17] MED LIST changes: -ASCO500T2 PO; +ASCO500T4 PO; -GLIM4TAB2 PO; +GLIM4TAB8 PO; +LEVO500T59 PO
--- NOTE | 2019-09-17 14:18 | CARD ---
MR#: [id number] Date of Study: 09/17/2019 Ordering Physician: SHAWN PARKER, Referring Physician: SHAWN PARKER Tech: Alexandria Akhtar RDCS APPROVED REPORT EXAM: Two-dimensional and M-mode echocardiogram with Doppler and color Doppler. Other Information Quality : Good INDICATION Sick Sinus Syndrome-Pacemaker 2D DIMENSIONS RVDd3.3 (2.9-3.5cm)Left Atrium(2D)5.1 (1.6-4.0cm) IVSd1.2 (0.7-1.1cm)Aortic Root(2D)4.1 (2.0-3.7cm) LVDd5.0 (3.9-5.9cm)LVOT Diameter2.3 (1.8-2.4cm) PWd1.3 (0.7-1.1cm)LVDs4.0 (2.5-4.0cm) FS (%) 20.0 %SV49.1 ml Aortic Valve AoV Peak Pedro.91.7cm/sAoV VTI14.6cm AO Peak GR.3.4mmHgLVOT Peak Pedro.71.5cm/s LVOT VTI 11.81cmAO Mean GR.2mmHg RAINE (VMAX)3.74oo1WKV (VTI)3.30cm2 Mitral Valve MV E Yvebpwih008.0cm/sMV DECEL TNCV840eg MV MTD95otAOD (PHT)5.04cm2 TDI E/Lateral E'7.9 Tricuspid Valve TR P. Dgbovqub727bv/sRAP UCEGFCWL4ujPg TR Peak Gr.95qaCnNXMF25veXj LEFT VENTRICLE The left ventricle is normal size. There is mild concentric left ventricular hypertrophy. Left ventri aminta systolic function is mildly impaired. The Ejection Fraction is estimated at 40%. Apical motion co nsistent with pacemaker activation. RIGHT VENTRICLE The right ventricle is normal size. The right ventricular systolic function is normal. There is a pac emaker lead in the right ventricle. ATRIA The left atrium is moderately dilated. The right atrium is moderately dilated. A pacemaker is seen in the right atrium consistent with history. The interatrial septum is intact with no evidence for an a trial septal defect or patent foramen ovale as noted on 2-D or Doppler imaging. AORTIC VALVE The aortic valve is calcified but opens well. Doppler and Color Flow revealed trace aortic regurgitat ion. There is no significant aortic valvular stenosis. MITRAL VALVE The mitral valve is calcified but opens well. There is no evidence of mitral valve prolapse. There is no mitral valve stenosis. Doppler and Color-flow revealed mild mitral regurgitation. TRICUSPID VALVE The tricuspid valve is normal in structure and function. Doppler and Color Flow revealed mild tricusp id regurgitation. The PA pressure was estimated at 45 mmHg. There is no tricuspid valve stenosis. PULMONIC VALVE The pulmonary valve is normal in structure and function. Doppler and Color Flow revealed mild pulmoni c valvular regurgitation. There is no pulmonic valvular stenosis. GREAT VESSELS The aortic root is moderately dilated at 4.1 cm. The ascending aorta is mildly dilated t 3.8 cm. The IVC is dilated and collapses >50% with inspiration. PERICARDIAL EFFUSION There is no evidence of significant pericardial effusion. Critical Notification Critical Value: No <Conclusion> The left ventricle is normal size. Left ventricle systolic function is mildly impaired. The Ejection Fraction is estimated at 40%. Apical motion consistent with pacemaker activation. There is mild concentric left ventricular hypertrophy. Doppler and Color Flow revealed trace aortic regurgitation. There is no significant aortic valvular stenosis. Doppler and Color-flow revealed mild mitral regurgitation. Doppler and Color Flow revealed mild tricuspid regurgitation. The PA pressure was estimated at 45 mmHg. The aortic root is moderately dilated at 4.1 cm. The ascending aorta is mildly dilated t 3.8 cm. Signed by : Jordan Wilhelm MD Electronically Approved : 09/17/2019 14:18:02
== END | disposition home or self-care (01) ==
LOC: ECHO 13:20
PROVIDERS: ATTEND Internal Medicine Cardiovascular Disease
DX: I08.8 Other rheumatic multiple valve diseases (principal); I49.5 Sick sinus syndrome
CPT/HCPCS: 93306

== ENCOUNTER → 2020-03-12 | Outpatient (CLI) | payer MEDICARE ==
[~2020-03-12] MED LIST changes: +REGADENOSON 0.4 MG/5 ML DISP.SYRIN. IV ONE
--- NOTE | 2020-03-12 16:45 | RAD ---
MR#: [id number] Date of Study: 03/12/2020 Ordering Physician: SHAWN PARKER, Referring Physician: CHERELLE LOGAN Tech: RT Dona AltamiranoR) (N) APPROVED REPORT Test Type: Pharmacological Stress Nurse/Tech: Sophia Palacios RN Test Indications: CAD Cardiac History: A fib,HTN, PPM, [place], DM Medications: See Electronic Medical Record Medical History: See Electronic Medical Record Resting ECG: V paced Resting Heart Rate: 50 bpm Resting Blood Pressure: 117/58mmHg Pretest Chest Pain: None Nurse/Tech Notes lungs CTA, S1S2 Consent: The procedure was explained to the patient in lay terms. Informed consent was witnessed. Kvng eout was entered into [employer]. History and Stress Test performed by RT Dona BradleyR) (N) Pharm. Details Pharmacologic stress testing was performed using 0.4mg per 5ml of regadenoson given intravenously ove r 7-10 seconds. Stress Symptoms No chest pain or symptoms. POST EXERCISE Reason for Termination: Infusion complete Max HR: 79 bpm Max Blood Pressure: 119/61mmHg Blood Pressure response to exercise: Normal blood pressure response during stress. Heart Rate response to exercise: normal response Chest Pain: No. Arrhythmia: No. ST Change: Yes. ST depression noted in pt intrinsic beats in lead II, III, AVF. no chest pain INTERPRETATION Stress EKG Conclusion: Non diagnostic EKG due to pacing artifact. Imaging Protocol IMAGE PROTOCOL: Rest Tc-99m/stress Tc-99m 1 day Rest: Stress: Viability: Radiopharm.Tc99m QlxwokbclFs35g Sestamibi Iynr23rUo 31.4mCi Duration 13min. 13min. Img Date 03/12/2020 03/12/2020 Inj-Img Xxla73jbw. 60min. Rest Admin Site:IV - Right HandAdministrator:ZAINA Fairchild, ARRT (R)(N) Stress Admin Site: IV - Right HandAdministrator: RT Dona BradleyR)(N) STRESS DATA End Diast. Vol.174.0mlLVEDV index BSA89.0ml End Syst. Vol.59.0mlLVESV index BSA30.0ml Myocardial Zyqw202.0gEject. Azizsgjm74.0% Stress Scores Regional WT0.00Summed WT1.00 Regional WM0.00Summed WM4.00 LV Perfusion THere is a large sized FIXED basal to distal inferior perfusion defect suggestive of prior infarct wi thout any signifcant ischemia. Wall Motion Normal LV systolic function. EF 60% LV Perf. Quant 17 Seg. SSS14.00 17 Seg. SRS15.00 17 Seg. SDS1.00 Stress Defect Extent (% LAD)28.10Rest Defect Extent (% LAD)20.60Rev. Defect Extent (% LAD)11.30 Stress Defect Extent (% LCX) 33.80Rest Defect Extent (% LCX)31.30Rev. Defect Extent (% LCX)0.00 Stress Defect Extent (% RCA)23.30Rest Defect Extent (% RCA)47.80Rev. Defect Extent (% RCA)0.00 Stress Defect Extent (% DARI)32.00Rest Defect Extent (% DARI)33.00Rev. Defect Extent (% DARI)7.60 Other Information Quality:Average Risk Assessment: Moderate Risk Conclusion 1. Non-diagnostic EKG due to pacing artifact 2. 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 3. Normal LV systolic function. EF 60% 4. Moderate risk for future CV events. Signed by : Prosper Naranjo, Electronically Approved : 03/12/2020 14:08:36
== END ==
LOC: NM 09:05
PROVIDERS: ATTEND Internal Medicine Cardiovascular Disease
DX: I25.10 Atherosclerotic heart disease of native coronary artery without angina pectoris (principal); I10 Essential (primary) hypertension; I25.2 Old myocardial infarction
CPT/HCPCS: 78452; 93017; A9500; J2785

== ENCOUNTER 2020-07-24 23:20 | Inpatient (IN) | payer MEDICARE ==
[~2020-07-24] VITALS: Ht 182.9 cm; Wt 86.0 kg
[~2020-07-24 23:20] MED LIST changes: +LISI10TA16 PO; -LISI10TA2 PO; -REGADENOSON 0.4 MG/5 ML DISP.SYRIN. IV ONE
[2020-07-25 00:14] LABS: BASO % 7 % (0-3); EOS # 0.3 x10^3/uL (0.0-0.7); EOS % 2 % (0-3); HEMATOCRIT 34.4 % (39.0-53.0); HEMOGLOBIN 10.3 g/dL (13.0-17.5); LYMPH # 1.7 x10^3/uL (1.0-4.8); LYMPH % 11 % (24-48); MEAN CORPUSCULAR HEMOGLOBIN 28 pg (25-35); MEAN CORPUSCULAR HGB CONC 30 g/dL (31-37); MEAN CORPUSCULAR VOLUME 93 fL (79-100); MONO # 0.7 x10^3/uL (0.0-1.1); MONO % 4 % (0-9); NEUT # 11.1 x10^3/uL (1.8-7.7); NEUT % 76 % (31-73); PLATELET COUNT 435 x10^3/uL (140-400); RED BLOOD COUNT 3.69 x10^6/uL (4.30-5.70); RED CELL DISTRIBUTION WIDTH 23.9 % (11.5-14.5); WHITE BLOOD COUNT 14.7 x10^3/uL (4.0-11.0)
[2020-07-25 00:27] LABS: CALCIUM 8.5 mg/dL (8.5-10.1); CREATININE 1.7 mg/dL (0.7-1.3); GFR 46.3; POTASSIUM 4.2 mmol/L (3.5-5.1)
--- NOTE | 2020-07-25 00:31 | RAD ---
Study: XR CHEST 1V Indication: Shortness of breath. Comparison: 09/14/2018 Findings: Left chest wall multilead pacer. Unchanged prominence of the cardiomediastinal silhouette and asymmet ethan prominence of the right hilum. Similar to slightly more pronounced increased interstitial markings on the right. Increased interstit ial markings on the left as well but slightly less pronounced from the comparison and there is less n oticeable thickening along a bleb at the costophrenic angle. No layering effusion or pneumothorax. Impression: Right more so than left increased interstitial markings are similar to slightly more pronounced from the comparison. In the setting of cardiomediastinal silhouette enlargement a component of interstitia l edema may be present. Persistence of interstitial prominence over time raises the question of chron ic changes/fibrosis as well. A superimposed atypical infectious process is not fully excluded or aspi ration. No evidence for an organizing pneumonia. Electronically signed by: GIANNA VALLEJO MD (07/25/2020 12:29 AM) [facility]
[2020-07-25 00:32] LABS: ALBUMIN 2.7 g/dL (3.4-5.0); ALBUMIN/GLOBULIN RATIO 0.7 (1.0-1.7); TOTAL BILIRUBIN 1.8 mg/dL (0.2-1.0); TOTAL PROTEIN 6.4 g/dL (6.4-8.2)
[2020-07-25 01:15] LABS: % BANDS 8 % (0-9); % LYMPHS 6 % (24-48); % MONOS 7 % (0-10); % SEGS 79 % (35-66); HYPOCHROMIA SLIGHT; NUCLEATED RBC 7; PLT ESTIMATE INCREASED (ADEQUATE)
[2020-07-25 01:16] LABS: MICROCYTOSIS SLIGHT; POIKILOCYTOSIS MOD; SCHISTOCYTES OCC
[2020-07-25 01:17] LABS: OVALOCYTES MOD
--- NOTE | 2020-07-25 01:57 | PHYS DOC ---
Past Medical History Past Medical History: A-Fib, CAD, CHF, Diabetes-Type II, High Cholesterol, Heart Disease, Hypertension Additional Past Medical Histor: CPAP @ NOC, Past Surgical History: Cholecystectomy, Pacemaker Additional Past Surgical Histo: LEG VEINS, hernia repair, Pacemaker Smoking Status: Former Smoker Alcohol Use: None Drug Use: None Adult General Chief Complaint Chief Complaint: LOWER EXTREMITY SWELLING HPI HPI Patient is a 89 year old male with a past medical history of CHF, hypertension, hyperlipidemia, diabetes, A. fib now presents emergency department complaining worsening bilateral lower extremity swelling. Patient states he was recently switched from Lasix to Bumex and states that since that time is noted worsening swelling bilateral lower extremities. Patient also developed some pain of the right lower extremity without fever or chills. Denies any dizziness or lightheadedness. Denies any shortness of breath Review of Systems Review of Systems Constitutional: Denies fever or chills [] Eyes: Denies change in visual acuity, redness, or eye pain [] HENT: Denies nasal congestion or sore throat [] Respiratory: Denies cough or shortness of breath [] Cardiovascular: No additional information not addressed in HPI [] GI: Denies abdominal pain, nausea, vomiting, bloody stools or diarrhea [] : Denies dysuria or hematuria [] Musculoskeletal: Denies back pain or joint pain [] Integument: Denies rash or skin lesions [] Neurologic: Denies headache, focal weakness or sensory changes [] Endocrine: Denies polyuria or polydipsia [] All other systems were reviewed and found to be within normal limits, except as documented in this note. Current Medications Current Medications Current Medications Medications (Trade) Dose Ordered Sig/Rakesh Start Time Stop Time Status Last Admin Dose Admin Furosemide (Lasix) 80 mg 1X ONCE 07/25/20 02:15 07/25/20 02:16 DC 07/25/20 02:13 80 MG Ondansetron HCl (Zofran) 4 mg PRN Q8HRS PRN 07/25/20 04:45 07/26/20 04:44 DC Allergies Allergies Allergies Coded Allergies Type Severity Reaction Last Updated Verified I S O L A T I O N *CONTACT* Allergy Unknown 10/15/18 Yes No Known Medication Allergies Allergy Unknown 10/15/18 Yes Physical Exam Physical Exam Constitutional: Well developed, well nourished, no acute distress, non-toxic appearance. [] HENT: Normocephalic, atraumatic, bilateral external ears normal, oropharynx moist, no oral exudates, nose normal. [] Eyes: PERRLA, EOMI, conjunctiva normal, no discharge. [] Neck: Normal range of motion, no tenderness, supple, no stridor. [] Cardiovascular:Heart rate regular rhythm, no murmur [] Lungs & Thorax: Bilateral breath sounds clear to auscultation [] Abdomen: Bowel sounds normal, soft, no tenderness, no masses, no pulsatile masses. [] Skin: Warm, dry, no erythema, no rash. [] Back: No tenderness, no CVA tenderness. [] Extremities: No tenderness, no cyanosis, no clubbing, ROM intact, severe bilateral lower extremity edema extending to the bilateral knees 3+ pitting Neurologic: Alert and oriented X 3, normal motor function, normal sensory function, no focal deficits noted. [] Psychologic: Affect normal, judgement normal, mood normal. [] Current Patient Data Vital Signs Vital Signs Date Time Temp Pulse Resp B/P (MAP) Pulse Ox O2 Delivery O2 Flow Rate FiO2 07/25/20 05:33 64 109/51 (70) 99 Room Air 07/24/20 23:35 98.6 13 98.6 Lab Values Laboratory Tests Test 07/25/20 00:02 07/25/20 02:35 White Blood Count 14.7 x10^3/uL (4.0-11.0) H Red Blood Count 3.69 x10^6/uL (4.30-5.70) L Hemoglobin 10.3 g/dL (13.0-17.5) L Hematocrit 34.4 % (39.0-53.0) L Mean Corpuscular Volume 93 fL (79-100) Mean Corpuscular Hemoglobin 28 pg (25-35) Mean Corpuscular Hemoglobin Concent 30 g/dL (31-37) L Red Cell Distribution Width 23.9 % (11.5-14.5) H Platelet Count 435 x10^3/uL (140-400) H Neutrophils (%) (Auto) 76 % (31-73) H Lymphocytes (%) (Auto) 11 % (24-48) L Monocytes (%) (Auto) 4 % (0-9) Eosinophils (%) (Auto) 2 % (0-3) Basophils (%) (Auto) 7 % (0-3) H Neutrophils # (Auto) 11.1 x10^3/uL (1.8-7.7) H Lymphocytes # (Auto) 1.7 x10^3/uL (1.0-4.8) Monocytes # (Auto) 0.7 x10^3/uL (0.0-1.1) Eosinophils # (Auto) 0.3 x10^3/uL (0.0-0.7) Basophils # (Auto) 1.0 x10^3/uL (0.0-0.2) H Segmented Neutrophils % 79 % (35-66) H Band Neutrophils % 8 % (0-9) Lymphocytes % 6 % (24-48) L Monocytes % 7 % (0-10) Nucleated Red Blood Cells 7 Platelet Estimate Increased (ADEQUATE) Large Platelets Few Giant Platelets Few Hypochromasia Slight Poikilocytosis Mod Microcytosis Slight Macrocytosis Mod Tear Drop Cells Ovalocytes Mod Schistocytes Occ Prothrombin Time 31.2 SEC (11.7-14.0) H Prothrombin Time INR 3.0 (0.8-1.1) H D-Dimer (Lyndsey) 0.56 ug/mlFEU (0.00-0.50) H Sodium Level 145 mmol/L (136-145) Potassium Level 4.2 mmol/L (3.5-5.1) Chloride Level 112 mmol/L (98-107) H Carbon Dioxide Level 23 mmol/L (21-32) Anion Gap 10 (6-14) Blood Urea Nitrogen 42 mg/dL (8-26) H Creatinine 1.7 mg/dL (0.7-1.3) H Estimated GFR (Cockcroft-Gault) 46.3 BUN/Creatinine Ratio 25 (6-20) H Glucose Level 83 mg/dL (70-99) Calcium Level 8.5 mg/dL (8.5-10.1) Total Bilirubin 1.8 mg/dL (0.2-1.0) H Aspartate Amino Transferase (AST) 58 U/L (15-37) H Alanine Aminotransferase (ALT) 12 U/L (16-63) L Alkaline Phosphatase 137 U/L (46-116) H SR-Guk-M-Type Natriuretic Peptide 86417 pg/mL (0-449) H Total Protein 6.4 g/dL (6.4-8.2) Albumin 2.7 g/dL (3.4-5.0) L Albumin/Globulin Ratio 0.7 (1.0-1.7) L Urine Collection Type Void Urine Color Yellow Urine Clarity Clear Urine pH 5.0 (<5.0-8.0) Urine Specific Ramsey 1.015 (1.000-1.030) Urine Protein Negative mg/dL (NEG-TRACE) Urine Glucose (UA) Negative mg/dL (NEG) Urine Ketones (Stick) Negative mg/dL (NEG) Urine Blood Negative (NEG) Urine Nitrite Negative (NEG) Urine Bilirubin Negative (NEG) Urine Urobilinogen Dipstick 0.2 mg/dL (0.2 mg/dL) Urine Leukocyte Esterase Trace (NEG) Urine RBC 0 /HPF (0-2) Urine WBC 11-20 /HPF (0-4) Urine Squamous Epithelial Cells Few /LPF Urine Bacteria Few /HPF (0-FEW) Laboratory Tests 07/25/20 00:02 Laboratory Tests 07/25/20 00:02 EKG EKG [] Radiology/Procedures Radiology/Procedures [] Course & Med Decision Making Course & Med Decision Making Pertinent Labs and Imaging studies reviewed. (See chart for details) 89-year-old male presenting with severe bilateral lower extremity pain most concerning for acute CHF exacerbation secondary to change in medication. Will obtain broad-spectrum work-up including chest x-ray to make sure there is no significant pulmonary edema and reevaluate. Labs reviewed and patient noted to have a significantly elevated BNP. Chest x- ray does also demonstrate mild pleural effusions. At this time does not likely represent an acute CHF exacerbation. Will provide the patient Lasix and plan for admission to the hospital. Dragon Disclaimer Dragon Disclaimer This electronic medical record was generated, in whole or in part, using a voice recognition dictation system. Departure Departure Impression: Primary Impression: CHF exacerbation Disposition: HOME / SELF CARE / HOMELESS Condition: GOOD Referrals: DAVID CHAPIN MD (PCP) PAVITHRA ZAVALETA MD Jul 25, 2020 01:56
[2020-07-25] MEDS ORDERED: FUROSEMIDE 40 MG/4 ML VIAL. IVP ONE (02:15)
[2020-07-25 02:51] LABS: BILIRUBIN,URINE NEGATIVE (NEG); CLARITY,URINE CLEAR; COLOR,URINE YELLOW; NITRITE,URINE NEGATIVE (NEG); PROTEIN,URINE NEGATIVE (NEG-TRACE); UROBILINOGEN,URINE 0.2 mg/dL (0.2 mg/dL)
[2020-07-25 03:15] LABS: BACTERIA,URINE FEW /HPF (0-FEW); RBC,URINE 0 /HPF (0-2)
--- NOTE | 2020-07-25 04:16 | RAD ---
STUDY: US BILATERAL LOWEREXTREMITY VENOUS DOPPLER INDICATION: Lower shotty pain and swelling. TECHNIQUE: Color-flow and pulsed wave duplex ultrasound with compression of venous structures of the bilateral lower extremities. COMPARISON: None recently. FINDINGS: Duplex ultrasound with compression of the deep venous structures of the bilateral lower extremities f rom the common femoral vein through the popliteal vein is negative for DVT. Maintained color Doppler flow within the major calf veins but not well visualized on the grayscale im ages due to extensive subcutaneous edema. IMPRESSION: 1. No deep venous thrombosis identified throughout either lower extremity. 2. Extensive subcutaneous edema becoming most pronounced below the knees resulting in the major calf veins only evaluated with color Doppler technique. Electronically signed by: GIANNA VALLEJO MD (07/25/2020 4:13 AM) [facility]
[2020-07-25] MEDS ORDERED: ONDANSETRON PF 4 MG/2 ML VIAL. IV PRN ×2 (04:45→08:00)
--- NOTE | 2020-07-25 06:21 | EKG ---
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
[2020-07-25 07:00] VITALS: BP 129/72
--- NOTE | 2020-07-25 07:41 | PDOC1 ---
History and Physical Date of Admission Date of Admission DATE: 07/25/20 TIME: 07:34 Identification/Chief Complaint Chief Complaint Shortness of breath Source Source: Patient History of Present Illness History of Present Illness Mr Rivero is an 89yo M w/ PMHx DM2, HLD, HTN, afib, SSS s/p PPM, CAD, chronic systolic CHF who presented to ED c/o progressive bilateral lower extremity edema and shortness of breath. He was recently seen in the cardiology office for worsening edema when his Lasix was stopped and he was started on Bumex. However, patient stated that his edema did not improve and actually kept progressing. He denied any chest pain, palpitations or syncope. Bilateral LE doppler negative for DVT, but revealed significant edema. Chest radiograph with interstitial edema. Labs with WBC 14.7, Hb 10.3, platelets 435, Na 145, K 4.2, BUN 42, Cr 1.7, glucose 83, blirubin 1.8, AST 58, Albumin 2.7, BNP [id number] Admitted for further treatment. Past Medical History Cardiovascular: AFIB, CAD, CHF, HTN, Hyperlipidemia Pulmonary: COPD, Other CENTRAL NERVOUS SYSTEM: Other GI: No pertinent hx Heme/Onc: No pertinent hx Hepatobiliary: No pertinent hx Psych: No pertinent hx Musculoskeletal: Osteoarthritis Rheumatologic: No pertinent hx Infectious disease: No pertinent hx Renal/: No pertinent hx Endocrine: Diabetes Past Surgical History Past Surgical History: Pacemaker, Cholecystectomy, Other Family History Family History: Heart Disease Social History Smoke: No ALCOHOL: none Drugs: None Current Medications Current Medications Current Medications Furosemide (Lasix) 80 mg 1X ONCE IVP Last administered on 07/25/20at 02:13; Start 07/25/20 at 02:15; Stop 07/25/20 at 02:16; Status DC Ondansetron HCl (Zofran) 4 mg PRN Q8HRS PRN IV NAUSEA/VOMITING; Start 07/25/20 at 04:45; Stop 07/26/20 at 04:44 Active Scripts Active Levaquin (Levofloxacin) 500 Mg Tablet 1 Tab PO DAILY 7 Days [place] 5-325 Tablet (Acetaminophen/Hydrocodone Bitart) 1 Each Tablet 7.5 Mg PO PRN Q6HRS PRN 6 Days LAST DOSE GIVEN: Reported Colace (Docusate Sodium) 100 Mg Capsule 1 Cap PO TID Metamucil Powder (Psyllium Seed (with Sugar)) 575 Gm Powder 575 Gm PO DAILY Atorvastatin Calcium 40 Mg Tablet 1 Tab PO DAILY Metoprolol Tartrate 100 Mg Tablet 100 Mg PO DAILY Tamsulosin Hcl 0.4 Mg Cap.er.24h 0.4 Mg PO HS DAILY Vitamin C (Ascorbic Acid) 500 Mg Tablet 250 Mg PO DAILY Warfarin Sodium 5 Mg Tablet 1.5 Tab PO QWE Warfarin Sodium 5 Mg Tablet 1 Tab PO DAILY EXCEPT WED. Aspirin 81 Mg Tab.chew 81 Mg PO BID Lanoxin (Digoxin) 125 Mcg Tablet 125 Mcg PO DAILY Allergies Allergies: Coded Allergies: I S O L A T I O N *CONTACT* (Verified Allergy, Unknown, 10/15/18) VRE No Known Medication Allergies (Verified Allergy, Unknown, 10/15/18) ROS General: YES: Fatigue, Malaise; No: Chills, Night Sweats, Appetite, Other PSYCHOLOGICAL ROS: No: Anxiety, Behavioral Disorder, Concentration difficultie, Decreased libido, Depression, Disorientation, Hallucinations, Hostility, Irritablity, Memory difficulties, Mood Swings, Obsessive thoughts, Physical abuse, Sexual abuse, Sleep disturbances, Suicidal ideation, Other Eyes: No Blurry vision, No Decreased vision, No Double vision, No Dry eyes, No Excessive tearing, No Eye Pain, No Itchy Eyes, No Loss of vision, No Photophobia, No Scotomata, No Uses contacts, No Uses glasses, No Other HEENT: No: Heacaches, Visual Changes, Hearing change, Nasal congestion, Nasal discharge, Oral lesions, Sinus pain, Sore Throat, Epistaxis, Sneezing, Snoring, Tinnitus, Vertigo, Vocal changes, Other ALLERGY AND IMMUNOLOGY: No: Hives, Insect Bite Sensitivity, Itchy/Watery Eyes, Nasal Congestion, Post Nasal Drip, Seasonal Allergies, Other Hematological and Lymphatic: No: Bleeding Problems, Blood Clots, Blood Transfusions, Brusing, Night Sweats, Pallor, Swollen Lymph Nodes, Other ENDOCRINE: No: Breast Changes, Galactorrhea, Hair Pattern Changes, Hot Flashes, Malaise/lethargy, Mood Swings, Palpitations, Polydipsia/polyuria, Skin Changes, Temperature Intolerance, Unexpected Weight Changes, Other Breast: No New/Changing Breast Lumps, No Nipple changes, No Nipple discharge, No Other Respiratory: YES: Cough, Shortness of breath, SOB with excertion; No: Hemoptysis, Orthopnea, Pleuritic Pain, Sputum Changes, Stridor, Tachypnea, Wheezing, Other Cardiovascular: yes Orthopnea, yes Paroxysmal Noc. Dyspnea, yes Edema; No Chest Pain, No Palpitations, No Lt Headedness, No Other Gastrointestinal: No Nausea, No Vomiting, No Abdominal Pain, No Diarrhea, No Constipation, No Melena, No Hematochezia, No Other Genitourinary: No Dysuria, No Frequency, No Incontinence, No Hematuria, No Retention, No Discharge, No Urgency, No Pain, No Flank Pain, No Other, No , No , No , No , No , No , No Musculoskeletal: No Gait Disturbance, No Joint Pain, No Joint Stiffness, No Joint Swelling, No Muscle Pain, No Muscular Weakness, No Pain In:, No Swelling In:, No Other Neurological: No Behavorial Changes, No Bowel/Bladder ControlChng, No Confusion, No Dizziness, No Gait Disturbance, No Headaches, No Impaired Coord/balance, No Memory Loss, No Numbness/Tingling, No Seizures, No Speech Problems, No Tremors, No Visual Changes, No Weakness, No Other Skin: No Dry Skin, No Eczema, No Hair Changes, No Lumps, No Mole Changes, No Mottling, No Nail Changes, No Pruritus, No Rash, No Skin Lesion Changes, No Other, No Acne Physical Exam General: Alert, Oriented X3, Cooperative, moderate distress HEENT: Atraumatic, PERRLA, EOMI, Mucous membr. moist/pink Lungs: Other (Bilateral crackles) Heart: irregularly irregular Abdomen: Normal bowel sounds, Soft, No tenderness, No hepatosplenomegaly, No masses Rectal Exam: not examined Extremities: No tenderness/swelling, Other (3+ edema) Skin: No rashes, No breakdown, No significant lesion Neuro: Normal gait, Normal speech, Strength at 5/5 X4 ext, Normal tone, Sensation intact, Cranial nerves 3-12 NL, Reflexes 2+ Psych/Mental Status: Mental status NL, Mood NL Vitals Vitals Vital Signs Date Time Temp Pulse Resp B/P (MAP) Pulse Ox O2 Delivery O2 Flow Rate FiO2 07/25/20 05:33 64 109/51 (70) 99 Room Air 07/24/20 23:35 98.6 13 98.6 Labs Labs Laboratory Tests Test 07/25/20 00:02 07/25/20 02:35 White Blood Count 14.7 x10^3/uL (4.0-11.0) Red Blood Count 3.69 x10^6/uL (4.30-5.70) Hemoglobin 10.3 g/dL (13.0-17.5) Hematocrit 34.4 % (39.0-53.0) Mean Corpuscular Volume 93 fL (79-100) Mean Corpuscular Hemoglobin 28 pg (25-35) Mean Corpuscular Hemoglobin Concent 30 g/dL (31-37) Red Cell Distribution Width 23.9 % (11.5-14.5) Platelet Count 435 x10^3/uL (140-400) Neutrophils (%) (Auto) 76 % (31-73) Lymphocytes (%) (Auto) 11 % (24-48) Monocytes (%) (Auto) 4 % (0-9) Eosinophils (%) (Auto) 2 % (0-3) Basophils (%) (Auto) 7 % (0-3) Neutrophils # (Auto) 11.1 x10^3/uL (1.8-7.7) Lymphocytes # (Auto) 1.7 x10^3/uL (1.0-4.8) Monocytes # (Auto) 0.7 x10^3/uL (0.0-1.1) Eosinophils # (Auto) 0.3 x10^3/uL (0.0-0.7) Basophils # (Auto) 1.0 x10^3/uL (0.0-0.2) Segmented Neutrophils % 79 % (35-66) Band Neutrophils % 8 % (0-9) Lymphocytes % 6 % (24-48) Monocytes % 7 % (0-10) Nucleated Red Blood Cells 7 Platelet Estimate Increased (ADEQUATE) Large Platelets Few Giant Platelets Few Hypochromasia Slight Poikilocytosis Mod Microcytosis Slight Macrocytosis Mod Tear Drop Cells Ovalocytes Mod Schistocytes Occ D-Dimer (Lyndsey) 0.56 ug/mlFEU (0.00-0.50) Sodium Level 145 mmol/L (136-145) Potassium Level 4.2 mmol/L (3.5-5.1) Chloride Level 112 mmol/L (98-107) Carbon Dioxide Level 23 mmol/L (21-32) Anion Gap 10 (6-14) Blood Urea Nitrogen 42 mg/dL (8-26) Creatinine 1.7 mg/dL (0.7-1.3) Estimated GFR (Cockcroft-Gault) 46.3 BUN/Creatinine Ratio 25 (6-20) Glucose Level 83 mg/dL (70-99) Calcium Level 8.5 mg/dL (8.5-10.1) Total Bilirubin 1.8 mg/dL (0.2-1.0) Aspartate Amino Transf (AST/SGOT) 58 U/L (15-37) Alanine Aminotransferase (ALT/SGPT) 12 U/L (16-63) Alkaline Phosphatase 137 U/L (46-116) EJ-Rbv-T-Type Natriuretic Peptide 18594 pg/mL (0-449) Total Protein 6.4 g/dL (6.4-8.2) Albumin 2.7 g/dL (3.4-5.0) Albumin/Globulin Ratio 0.7 (1.0-1.7) Urine Collection Type Void Urine Color Yellow Urine Clarity Clear Urine pH 5.0 (<5.0-8.0) Urine Specific [place] 1.015 (1.000-1.030) Urine Protein Negative mg/dL (NEG-TRACE) Urine Glucose (UA) Negative mg/dL (NEG) Urine Ketones (Stick) Negative mg/dL (NEG) Urine Blood Negative (NEG) Urine Nitrite Negative (NEG) Urine Bilirubin Negative (NEG) Urine Urobilinogen Dipstick 0.2 mg/dL (0.2 mg/dL) Urine Leukocyte Esterase Trace (NEG) Urine RBC 0 /HPF (0-2) Urine WBC 11-20 /HPF (0-4) Urine Squamous Epithelial Cells Few /LPF Urine Bacteria Few /HPF (0-FEW) Laboratory Tests Test 07/25/20 00:02 07/25/20 02:35 White Blood Count 14.7 x10^3/uL (4.0-11.0) Red Blood Count 3.69 x10^6/uL (4.30-5.70) Hemoglobin 10.3 g/dL (13.0-17.5) Hematocrit 34.4 % (39.0-53.0) Mean Corpuscular Volume 93 fL (79-100) Mean Corpuscular Hemoglobin 28 pg (25-35) Mean Corpuscular Hemoglobin Concent 30 g/dL (31-37) Red Cell Distribution Width 23.9 % (11.5-14.5) Platelet Count 435 x10^3/uL (140-400) Neutrophils (%) (Auto) 76 % (31-73) Lymphocytes (%) (Auto) 11 % (24-48) Monocytes (%) (Auto) 4 % (0-9) Eosinophils (%) (Auto) 2 % (0-3) Basophils (%) (Auto) 7 % (0-3) Neutrophils # (Auto) 11.1 x10^3/uL (1.8-7.7) Lymphocytes # (Auto) 1.7 x10^3/uL (1.0-4.8) Monocytes # (Auto) 0.7 x10^3/uL (0.0-1.1) Eosinophils # (Auto) 0.3 x10^3/uL (0.0-0.7) Basophils # (Auto) 1.0 x10^3/uL (0.0-0.2) Segmented Neutrophils % 79 % (35-66) Band Neutrophils % 8 % (0-9) Lymphocytes % 6 % (24-48) Monocytes % 7 % (0-10) Nucleated Red Blood Cells 7 Platelet Estimate Increased (ADEQUATE) Large Platelets Few Giant Platelets Few Hypochromasia Slight Poikilocytosis Mod Microcytosis Slight Macrocytosis Mod Tear Drop Cells Ovalocytes Mod Schistocytes Occ D-Dimer (Lyndsey) 0.56 ug/mlFEU (0.00-0.50) Sodium Level 145 mmol/L (136-145) Potassium Level 4.2 mmol/L (3.5-5.1) Chloride Level 112 mmol/L (98-107) Carbon Dioxide Level 23 mmol/L (21-32) Anion Gap 10 (6-14) Blood Urea Nitrogen 42 mg/dL (8-26) Creatinine 1.7 mg/dL (0.7-1.3) Estimated GFR (Cockcroft-Gault) 46.3 BUN/Creatinine Ratio 25 (6-20) Glucose Level 83 mg/dL (70-99) Calcium Level 8.5 mg/dL (8.5-10.1) Total Bilirubin 1.8 mg/dL (0.2-1.0) Aspartate Amino Transf (AST/SGOT) 58 U/L (15-37) Alanine Aminotransferase (ALT/SGPT) 12 U/L (16-63) Alkaline Phosphatase 137 U/L (46-116) WQ-Ign-H-Type Natriuretic Peptide 56033 pg/mL (0-449) Total Protein 6.4 g/dL (6.4-8.2) Albumin 2.7 g/dL (3.4-5.0) Albumin/Globulin Ratio 0.7 (1.0-1.7) Urine Collection Type Void Urine Color Yellow Urine Clarity Clear Urine pH 5.0 (<5.0-8.0) Urine Specific [place] 1.015 (1.000-1.030) Urine Protein Negative mg/dL (NEG-TRACE) Urine Glucose (UA) Negative mg/dL (NEG) Urine Ketones (Stick) Negative mg/dL (NEG) Urine Blood Negative (NEG) Urine Nitrite Negative (NEG) Urine Bilirubin Negative (NEG) Urine Urobilinogen Dipstick 0.2 mg/dL (0.2 mg/dL) Urine Leukocyte Esterase Trace (NEG) Urine RBC 0 /HPF (0-2) Urine WBC 11-20 /HPF (0-4) Urine Squamous Epithelial Cells Few /LPF Urine Bacteria Few /HPF (0-FEW) Images Images Chest radiograph: Left chest wall multilead pacer. Unchanged prominence of the cardiomediastinal silhouette and asymmetric prominence of the right hilum. Similar to slightly more pronounced increased interstitial markings on the right. Increased interstitial markings on the left as well but slightly less pronounced from the comparison and there is less noticeable thickening along a bleb at the costophrenic angle. No layering effusion or pneumothorax. Impression: Right more so than left increased interstitial markings are similar to slightly more pronounced from the comparison. In the setting of cardiomediastinal silhouette enlargement a component of interstitial edema may be present. Persistence of interstitial prominence over time raises the question of chronic changes/fibrosis as well. A superimposed atypical infectious process is not fully excluded or aspiration. No evidence for an organizing pneumonia. Jj LE venous doppler: Duplex ultrasound with compression of the deep venous structures of the bilateral lower extremities from the common femoral vein through the popliteal vein is negative for DVT. Maintained color Doppler flow within the major calf veins but not well visua lized on the grayscale images due to extensive subcutaneous edema. IMPRESSION: 1. No deep venous thrombosis identified throughout either lower extremity. 2. Extensive subcutaneous edema becoming most pronounced below the knees resulting in the major calf veins only evaluated with color Doppler technique. VTE Prophylaxis Ordered VTE Prophylaxis Devices: Yes VTE Pharmacological Prophylaxi: Yes Assessment/Plan Assessment/Plan A/P: Acute on chronic combined systolic and diastolic heart failure. We will diurese with intravenous Bumex. 2D echo in September 2019 showed LVEF 40%. Coronary artery disease: Patient has known chronic total occlusion of LAD with collaterals, presently stable and chest pain-free. Lexiscan nuclear stress test in March 2020 showed large inferior infarct without any significant ischemia. Continue current secondary prevention measures. Sick sinus syndrome s/p permanent pacemaker implantation with more recent generator change. Recent device check showed normal function. He denied any syncope or near syncope. Permanent atrial fibrillation: Telemetry showed demand pacing. Patient on warfarin for stroke prophylaxis. Check PT/INR. Hypertension - Controlled. Will back off on his BB. He is actually on 100mg metoprolol tartrate Hyperlipidemia - Continue statin Diabetes mellitus type 2 - diet controlled, A1c previously 5.8 Protein calorie malnutrition - severe given his edema and albumin. Metal Mixer to see Leukocytosis - no clear infectious source, likely reactive given his respiratory distress from CHF exacerbation. Will obtain procalcitonin to help guide initiation of antibiotic therapy for low suspicion for pneumonia FEN - Cardiac ADA diet PPX - warfarin CODE - FULL Dispo - inpatient CVC for CHF exacerbation Justifications for Admission Other Justification RANDALL CLARK MD Jul 25, 2020 07:41
[2020-07-25] MEDS ORDERED: ACETAMINOPHEN 325 MG TABLET. PO PRN (08:00)
--- NOTE | 2020-07-25 08:30 | PDOC2 ---
CONSULT Date of Consult Date of Consult DATE: 07/25/20 TIME: 08:29 Reason for Consult Reason for Consult: Congestive heart failure Referring Physician Referring Physician: Dr. Yadav Identification/Chief Complaint Chief Complaint Edema and shortness of breath Source Source: Chart review, Patient History of Present Illness Reason for Visit: 89-year-old male with history of coronary artery disease, sick sinus syndrome s/p permanent pacemaker implantation and permanent atrial fibrillation presented with progressive bilateral lower extremity edema and shortness of breath. He was recently seen in our office for worsening edema when his Lasix was stopped and he was started on Bumex. However, patient stated that his edema did not improve and actually kept progressing. He denied any chest pain, palpitations or syncope. Past Medical History Cardiovascular: AFIB, CAD, CHF, HTN, Hyperlipidemia Pulmonary: COPD, Other CENTRAL NERVOUS SYSTEM: Other GI: No pertinent hx Heme/Onc: No pertinent hx Hepatobiliary: No pertinent hx Psych: No pertinent hx Musculoskeletal: Osteoarthritis Rheumatologic: No pertinent hx Infectious disease: No pertinent hx Renal/: No pertinent hx Endocrine: Diabetes Past Surgical History Past Surgical History: Pacemaker, Cholecystectomy, Other Family History Family History: Heart Disease Social History ALCOHOL: none Drugs: None Lives: with Family Current Medications Current Medications Current Medications Furosemide (Lasix) 80 mg 1X ONCE IVP Last administered on 07/25/20at 02:13; Start 07/25/20 at 02:15; Stop 07/25/20 at 02:16; Status DC Ondansetron HCl (Zofran) 4 mg PRN Q8HRS PRN IV NAUSEA/VOMITING; Start 07/25/20 at 04:45; Stop 07/26/20 at 04:44 Ondansetron HCl (Zofran) 4 mg PRN Q4HRS PRN IV NAUSEA/VOMITING; Start 07/25/20 at 08:00 Acetaminophen (Tylenol) 650 mg PRN Q4HRS PRN PO TEMP OVER 100.4F OR MILD PAIN; Start 07/25/20 at 08:00 Active Scripts Active Levaquin (Levofloxacin) 500 Mg Tablet 1 Tab PO DAILY 7 Days Wolf 5-325 Tablet (Acetaminophen/Hydrocodone Bitart) 1 Each Tablet 7.5 Mg PO PRN Q6HRS PRN 6 Days LAST DOSE GIVEN: Reported Colace (Docusate Sodium) 100 Mg Capsule 1 Cap PO TID Metamucil Powder (Psyllium Seed (with Sugar)) 575 Gm Powder 575 Gm PO DAILY Atorvastatin Calcium 40 Mg Tablet 1 Tab PO DAILY Metoprolol Tartrate 100 Mg Tablet 100 Mg PO DAILY Tamsulosin Hcl 0.4 Mg Cap.er.24h 0.4 Mg PO HS DAILY Vitamin C (Ascorbic Acid) 500 Mg Tablet 250 Mg PO DAILY Warfarin Sodium 5 Mg Tablet 1.5 Tab PO QWE Warfarin Sodium 5 Mg Tablet 1 Tab PO DAILY EXCEPT WED. Aspirin 81 Mg Tab.chew 81 Mg PO BID Lanoxin (Digoxin) 125 Mcg Tablet 125 Mcg PO DAILY Allergies Allergies: Coded Allergies: I S O L A T I O N *CONTACT* (Verified Allergy, Unknown, 10/15/18) VRE No Known Medication Allergies (Verified Allergy, Unknown, 10/15/18) ROS PSYCHOLOGICAL ROS: No: Hallucinations Eyes: No Loss of vision HEENT: No: Epistaxis Respiratory: YES: Shortness of breath; No: Hemoptysis Cardiovascular: yes Edema; No Chest Pain Gastrointestinal: No Vomiting Genitourinary: No Hematuria Neurological: No Seizures Skin: No Rash Physical Exam General: Alert, No acute distress HEENT: Atraumatic Lungs: Other (Bilateral basal crepitations) Heart: Other (Heart rate irregular) Abdomen: Soft Extremities: Other (3+ pitting edema) Neuro: Normal speech Psych/Mental Status: Mood NL Vitals VITALS Vital Signs Date Time Temp Pulse Resp B/P (MAP) Pulse Ox O2 Delivery O2 Flow Rate FiO2 07/25/20 05:33 64 109/51 (70) 99 Room Air 07/24/20 23:35 98.6 13 98.6 Labs Labs Laboratory Tests Test 07/25/20 00:02 07/25/20 02:35 07/25/20 08:01 White Blood Count 14.7 x10^3/uL (4.0-11.0) Red Blood Count 3.69 x10^6/uL (4.30-5.70) Hemoglobin 10.3 g/dL (13.0-17.5) Hematocrit 34.4 % (39.0-53.0) Mean Corpuscular Volume 93 fL (79-100) Mean Corpuscular Hemoglobin 28 pg (25-35) Mean Corpuscular Hemoglobin Concent 30 g/dL (31-37) Red Cell Distribution Width 23.9 % (11.5-14.5) Platelet Count 435 x10^3/uL (140-400) Neutrophils (%) (Auto) 76 % (31-73) Lymphocytes (%) (Auto) 11 % (24-48) Monocytes (%) (Auto) 4 % (0-9) Eosinophils (%) (Auto) 2 % (0-3) Basophils (%) (Auto) 7 % (0-3) Neutrophils # (Auto) 11.1 x10^3/uL (1.8-7.7) Lymphocytes # (Auto) 1.7 x10^3/uL (1.0-4.8) Monocytes # (Auto) 0.7 x10^3/uL (0.0-1.1) Eosinophils # (Auto) 0.3 x10^3/uL (0.0-0.7) Basophils # (Auto) 1.0 x10^3/uL (0.0-0.2) Segmented Neutrophils % 79 % (35-66) Band Neutrophils % 8 % (0-9) Lymphocytes % 6 % (24-48) Monocytes % 7 % (0-10) Nucleated Red Blood Cells 7 Platelet Estimate Increased (ADEQUATE) Large Platelets Few Giant Platelets Few Hypochromasia Slight Poikilocytosis Mod Microcytosis Slight Macrocytosis Mod Tear Drop Cells Ovalocytes Mod Schistocytes Occ D-Dimer (Lyndsey) 0.56 ug/mlFEU (0.00-0.50) Sodium Level 145 mmol/L (136-145) Potassium Level 4.2 mmol/L (3.5-5.1) Chloride Level 112 mmol/L (98-107) Carbon Dioxide Level 23 mmol/L (21-32) Anion Gap 10 (6-14) Blood Urea Nitrogen 42 mg/dL (8-26) Creatinine 1.7 mg/dL (0.7-1.3) Estimated GFR (Cockcroft-Gault) 46.3 BUN/Creatinine Ratio 25 (6-20) Glucose Level 83 mg/dL (70-99) Calcium Level 8.5 mg/dL (8.5-10.1) Total Bilirubin 1.8 mg/dL (0.2-1.0) Aspartate Amino Transf (AST/SGOT) 58 U/L (15-37) Alanine Aminotransferase (ALT/SGPT) 12 U/L (16-63) Alkaline Phosphatase 137 U/L (46-116) VV-Fcb-N-Type Natriuretic Peptide 99838 pg/mL (0-449) Total Protein 6.4 g/dL (6.4-8.2) Albumin 2.7 g/dL (3.4-5.0) Albumin/Globulin Ratio 0.7 (1.0-1.7) Urine Collection Type Void Urine Color Yellow Urine Clarity Clear Urine pH 5.0 (<5.0-8.0) Urine Specific [place] 1.015 (1.000-1.030) Urine Protein Negative mg/dL (NEG-TRACE) Urine Glucose (UA) Negative mg/dL (NEG) Urine Ketones (Stick) Negative mg/dL (NEG) Urine Blood Negative (NEG) Urine Nitrite Negative (NEG) Urine Bilirubin Negative (NEG) Urine Urobilinogen Dipstick 0.2 mg/dL (0.2 mg/dL) Urine Leukocyte Esterase Trace (NEG) Urine RBC 0 /HPF (0-2) Urine WBC 11-20 /HPF (0-4) Urine Squamous Epithelial Cells Few /LPF Urine Bacteria Few /HPF (0-FEW) Glucose (Fingerstick) 64 mg/dL (70-99) Laboratory Tests Test 07/25/20 00:02 07/25/20 02:35 07/25/20 08:01 White Blood Count 14.7 x10^3/uL (4.0-11.0) Red Blood Count 3.69 x10^6/uL (4.30-5.70) Hemoglobin 10.3 g/dL (13.0-17.5) Hematocrit 34.4 % (39.0-53.0) Mean Corpuscular Volume 93 fL (79-100) Mean Corpuscular Hemoglobin 28 pg (25-35) Mean Corpuscular Hemoglobin Concent 30 g/dL (31-37) Red Cell Distribution Width 23.9 % (11.5-14.5) Platelet Count 435 x10^3/uL (140-400) Neutrophils (%) (Auto) 76 % (31-73) Lymphocytes (%) (Auto) 11 % (24-48) Monocytes (%) (Auto) 4 % (0-9) Eosinophils (%) (Auto) 2 % (0-3) Basophils (%) (Auto) 7 % (0-3) Neutrophils # (Auto) 11.1 x10^3/uL (1.8-7.7) Lymphocytes # (Auto) 1.7 x10^3/uL (1.0-4.8) Monocytes # (Auto) 0.7 x10^3/uL (0.0-1.1) Eosinophils # (Auto) 0.3 x10^3/uL (0.0-0.7) Basophils # (Auto) 1.0 x10^3/uL (0.0-0.2) Segmented Neutrophils % 79 % (35-66) Band Neutrophils % 8 % (0-9) Lymphocytes % 6 % (24-48) Monocytes % 7 % (0-10) Nucleated Red Blood Cells 7 Platelet Estimate Increased (ADEQUATE) Large Platelets Few Giant Platelets Few Hypochromasia Slight Poikilocytosis Mod Microcytosis Slight Macrocytosis Mod Tear Drop Cells Ovalocytes Mod Schistocytes Occ D-Dimer (Lyndsey) 0.56 ug/mlFEU (0.00-0.50) Sodium Level 145 mmol/L (136-145) Potassium Level 4.2 mmol/L (3.5-5.1) Chloride Level 112 mmol/L (98-107) Carbon Dioxide Level 23 mmol/L (21-32) Anion Gap 10 (6-14) Blood Urea Nitrogen 42 mg/dL (8-26) Creatinine 1.7 mg/dL (0.7-1.3) Estimated GFR (Cockcroft-Gault) 46.3 BUN/Creatinine Ratio 25 (6-20) Glucose Level 83 mg/dL (70-99) Calcium Level 8.5 mg/dL (8.5-10.1) Total Bilirubin 1.8 mg/dL (0.2-1.0) Aspartate Amino Transf (AST/SGOT) 58 U/L (15-37) Alanine Aminotransferase (ALT/SGPT) 12 U/L (16-63) Alkaline Phosphatase 137 U/L (46-116) UQ-Pwx-B-Type Natriuretic Peptide 14687 pg/mL (0-449) Total Protein 6.4 g/dL (6.4-8.2) Albumin 2.7 g/dL (3.4-5.0) Albumin/Globulin Ratio 0.7 (1.0-1.7) Urine Collection Type Void Urine Color Yellow Urine Clarity Clear Urine pH 5.0 (<5.0-8.0) Urine Specific [place] 1.015 (1.000-1.030) Urine Protein Negative mg/dL (NEG-TRACE) Urine Glucose (UA) Negative mg/dL (NEG) Urine Ketones (Stick) Negative mg/dL (NEG) Urine Blood Negative (NEG) Urine Nitrite Negative (NEG) Urine Bilirubin Negative (NEG) Urine Urobilinogen Dipstick 0.2 mg/dL (0.2 mg/dL) Urine Leukocyte Esterase Trace (NEG) Urine RBC 0 /HPF (0-2) Urine WBC 11-20 /HPF (0-4) Urine Squamous Epithelial Cells Few /LPF Urine Bacteria Few /HPF (0-FEW) Glucose (Fingerstick) 64 mg/dL (70-99) Assessment/Plan Assessment/Plan 1. Acute on chronic combined systolic and diastolic heart failure. We will diurese with intravenous Bumex. 2D echo in September 2019 showed LVEF 40%. 2. Coronary artery disease: Patient has known chronic total occlusion of LAD with collaterals, presently stable and chest pain-free. Lexiscan nuclear stress test in March 2020 showed large inferior infarct without any significant ischemia. Continue current secondary prevention measures. 3. Sick sinus syndrome s/p permanent pacemaker implantation with more recent generator change. Recent device check showed normal function. He denied any syncope or near syncope. 4. Permanent atrial fibrillation: Telemetry showed demand pacing. Patient on warfarin for stroke prophylaxis. Check PT/INR. 5. Hypertension: Controlled 6. Hyperlipidemia: Continue statins 7. Diabetes mellitus type 2: Treat per IM Thank you for your consultation SHAWN PARKER MD Jul 25, 2020 08:30
[2020-07-25 11:00] VITALS: BP 110/56
[2020-07-25 13:08] LABS: PROTHROMBIN TIME PATIENT 31.2 SEC (11.7-14.0)
[2020-07-25] MEDS: BUMETANIDE 1 MG/4 ML VIAL. IV SCH (13:20)
[2020-07-25 15:00] VITALS: BP 112/53
[2020-07-25] MEDS ORDERED: WARFARIN 0.5 MG TABLET. PO ONE (17:45)
[2020-07-25 19:00] VITALS: BP 135/61
[2020-07-25 19:28] LABS: DIG 0.8 ng/mL (0.9-2.0)
[2020-07-25] MEDS: DOCUSATE SODIUM 100 MG CAPSULE. PO SCH (21:54)
[2020-07-25] MEDS: TAMSULOSIN 0.4 MG CAP.ER.24H. PO SCH (21:54)
[2020-07-25] MEDS: ASPIRIN CHEWABLE 81 MG TABLET. PO SCH (21:54)
[2020-07-25 23:28] VITALS: BP 122/58
[2020-07-26 02:58] VITALS: BP 112/57
[2020-07-26 07:00] VITALS: BP 114/52
[2020-07-26 07:44] LABS: CALCIUM 8.6 mg/dL (8.5-10.1); CREATININE 1.5 mg/dL (0.7-1.3); GFR 53.4; POTASSIUM 3.7 mmol/L (3.5-5.1)
[2020-07-26 08:22] LABS: BASO # 0.2 x10^3/uL (0.0-0.2); BASO % 2 % (0-3); EOS # 0.4 x10^3/uL (0.0-0.7); EOS % 3 % (0-3); HEMATOCRIT 31.6 % (39.0-53.0); HEMOGLOBIN 9.4 g/dL (13.0-17.5); LYMPH % 13 % (24-48); MEAN CORPUSCULAR HEMOGLOBIN 29 pg (25-35); MEAN CORPUSCULAR HGB CONC 30 g/dL (31-37); MEAN CORPUSCULAR VOLUME 96 fL (79-100); MONO # 0.6 x10^3/uL (0.0-1.1); MONO % 4 % (0-9); NEUT # 11.5 x10^3/uL (1.8-7.7); NEUT % 78 % (31-73); PLATELET COUNT 446 x10^3/uL (140-400); RED CELL DISTRIBUTION WIDTH 25.1 % (11.5-14.5); WHITE BLOOD COUNT 14.7 x10^3/uL (4.0-11.0)
[2020-07-26] MEDS: METOPROLOL SUCC 24HR ER 50 MG TAB.ER.24H. PO SCH (08:59)
[2020-07-26] MEDS: ATORVASTATIN CALCIUM 40 MG TABLET. PO SCH (08:59)
[2020-07-26] MEDS: PSYLLIUM HUSK (SUGAR FREE) 1 PKT PACKET PO SCH (08:59)
[2020-07-26] MEDS: ASPIRIN CHEWABLE 81 MG TABLET. PO SCH ×2 (08:59→21:34)
[2020-07-26] MEDS: DOCUSATE SODIUM 100 MG CAPSULE. PO SCH ×3 (09:00→21:34)
[2020-07-26] MEDS ORDERED: FUROSEMIDE 40 MG/4 ML VIAL. IVP SCH (09:00)
[2020-07-26] MEDS: BUMETANIDE 1 MG/4 ML VIAL. IV SCH ×2 (09:00→15:34)
[2020-07-26 11:00] VITALS: BP 125/66
--- NOTE | 2020-07-26 12:18 | PDOC ---
BART PAZ IRIS 07/26/20 1218: CARDIO Progress Notes Date and Time Date of Service 07/26/20 Time of Evaluation 1210 Subjective Subjective: No Chest Pain, No Palpitations, Other (breathing improved ) Vitals Vitals Vital Signs Date Time Temp Pulse Resp B/P (MAP) Pulse Ox O2 Delivery O2 Flow Rate FiO2 07/26/20 11:00 97.6 58 18 125/66 (85) 96 Room Air 97.6 Weight Weight [ ] Input and Output Intake and Output Intake and Output 07/26/20 07:00 Intake Total 860 ml Output Total 1600 ml Balance -740 ml Intake Oral 860 ml Output Urine Total 1600 ml Laboratory Labs Laboratory Tests Test 07/25/20 17:22 07/25/20 18:45 07/25/20 21:16 07/26/20 04:00 Glucose (Fingerstick) 93 mg/dL (70-99) 123 mg/dL (70-99) Procalcitonin < 0.10 ng/mL (0.00-0.10) Digoxin Level 0.8 ng/mL (0.9-2.0) Digoxin Last Dose Date 07/24/20 Digoxin Last Dose Time 0700 White Blood Count 14.7 x10^3/uL (4.0-11.0) Red Blood Count 3.30 x10^6/uL (4.30-5.70) Hemoglobin 9.4 g/dL (13.0-17.5) Hematocrit 31.6 % (39.0-53.0) Mean Corpuscular Volume 96 fL (79-100) Mean Corpuscular Hemoglobin 29 pg (25-35) Mean Corpuscular Hemoglobin Concent 30 g/dL (31-37) Red Cell Distribution Width 25.1 % (11.5-14.5) Platelet Count 446 x10^3/uL (140-400) Neutrophils (%) (Auto) 78 % (31-73) Lymphocytes (%) (Auto) 13 % (24-48) Monocytes (%) (Auto) 4 % (0-9) Eosinophils (%) (Auto) 3 % (0-3) Basophils (%) (Auto) 2 % (0-3) Neutrophils # (Auto) 11.5 x10^3/uL (1.8-7.7) Lymphocytes # (Auto) 2.0 x10^3/uL (1.0-4.8) Monocytes # (Auto) 0.6 x10^3/uL (0.0-1.1) Eosinophils # (Auto) 0.4 x10^3/uL (0.0-0.7) Basophils # (Auto) 0.2 x10^3/uL (0.0-0.2) Sodium Level 146 mmol/L (136-145) Potassium Level 3.7 mmol/L (3.5-5.1) Chloride Level 112 mmol/L (98-107) Carbon Dioxide Level 23 mmol/L (21-32) Anion Gap 11 (6-14) Blood Urea Nitrogen 38 mg/dL (8-26) Creatinine 1.5 mg/dL (0.7-1.3) Estimated GFR (Cockcroft-Gault) 53.4 Glucose Level 54 mg/dL (70-99) Calcium Level 8.6 mg/dL (8.5-10.1) Magnesium Level 2.1 mg/dL (1.8-2.4) Test 07/26/20 08:11 Glucose (Fingerstick) 78 mg/dL (70-99) Physical Exam HEENT: Neck Supple W Full Motion Chest: Symmetric LUNGS: Clear to Auscultation Heart: irregularly irregular Abdomen: Soft N/T Extremities: No Edema, Other (2+ bilateral LE edema ) Neurology: alert, oriented, follow commands Assessment Assessment 1. Acute on chronic diastolic CHF with ischemic cardiomyopathy; Echo 09/26 with LVEF 40%. Improved with diuresis. 2. CAD; catheterization 08/2018 with SHIP'S ENGINEER of LAD with collaterals, which is unchanged from previous cath in 2013. clinically stable, CP free. 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 3. Permanent AFIB; rate controlled with BB. on warfarin for stroke prevention. INR 3.5 4. 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 Trace) - recent device check showed normal function. no dizziness, syncope 5. Hypertension; controlled 6. Hyperlipidemia; statin 7. Diabetes, II; as per IM 8. DION: Cr better Recommendations Ongoing diuresis with monitoring of renal function Continue current secondary prevention measures Monitor I and O, daily weights Supportive care Justicifation of Admission Dx: Justifications for Admission: Justification of Admission Dx: Yes Comments: acute on chronic systolic CHF CAD SHAWN PARKER MD 07/27/20 1003: CARDIO Progress Notes Assessment Assessment Patient seen and examined 07/26/2020. Agree with WELFARE OFFICER's assessment and plan. Acute on chronic combined systolic and diastolic heart failure better compensated with diuresis CAD status clinically stable Permanent atrial fibrillation rate controlled SSS s/p PPM with recent check showing normal function BART PAZ APRN Jul 26, 2020 12:18 SHAWN PARKER MD Jul 27, 2020 10:03
[2020-07-26 13:48] LABS: PROTHROMBIN TIME PATIENT 35.5 SEC (11.7-14.0)
--- NOTE | 2020-07-26 14:03 | NUR ---
Pharmacy Warfarin Dosing Note S:Pharmacy consulted to assist with anticoagulation therapy started with target INR: 2 -3 O:MAMTA MACIAS is a 89 year old M with Atrial Fibrillation LABS: Last INR: 3.5 Last HGB: 9.4 Last HCT: 31.6 Last PLT: 446 Last dose of 1.5MG given on 07/25/20 at 1830 Previous Regimen: 2MG/DAY Vitamin K given: Drug Interaction Changes: Ongoing Drug Interactions: A:INR of 3.5 is above desired range. Target range for this patient is: 2 -3 P: Warfarin dose: Hold Today at 1600 Bridge Therapy: Next INR due IN AM Pharmacy anticoagulation service will continue to follow. HARRY ROSALES, [facility], 07/26/20 [id number]
--- NOTE | 2020-07-26 14:10 | PDOC ---
[facility] PROGRESS NOTE Date of Service DOS: DATE: 07/26/20 TIME: 14:08 Chief Complaint Chief Complaint Acute on chronic combined systolic and diastolic heart failure. We will diurese with intravenous Bumex. 2D echo in September 2019 showed LVEF 40%. Coronary artery disease: Patient has known chronic total occlusion of LAD with collaterals, presently stable and chest pain-free. Lexiscan nuclear stress test in March 2020 showed large inferior infarct without any significant ischemia. Continue current secondary prevention measures. Sick sinus syndrome s/p permanent pacemaker implantation with more recent generator change. Recent device check showed normal function. He denied any syncope or near syncope. Permanent atrial fibrillation: Telemetry showed demand pacing. Patient on warfarin for stroke prophylaxis. Check PT/INR. Hypertension - Controlled. Will back off on his BB. He is actually on 100mg metoprolol tartrate Hyperlipidemia - Continue statin Diabetes mellitus type 2 - diet controlled, A1c previously 5.8 Protein calorie malnutrition - severe given his edema and albumin. Second Crusher to see Leukocytosis - no clear infectious source, likely reactive given his respiratory distress from CHF exacerbation. Will obtain procalcitonin to help guide initiation of antibiotic therapy for low suspicion for pneumonia FEN - Cardiac ADA diet PPX - warfarin CODE - FULL Dispo - inpatient CVC for CHF exacerbation History of Present Illness History of Present Illness 07/26/2020 No acute events overnight. Patient with 1.6 urine output and negative fluid balance since yesterday of -740 cc. Patient has reduced lower extremity swelling and feels better. Currently saturating 96% on room air. Patient's chart, labs, images were reviewed and discussed with RN Advance care planning: A total time of > 17 minutes was spent from 10:00 to 1030 face to face in discussion with the patient regarding their goals of care, 89yo M w/ PMHx DM2, HLD, HTN, afib, SSS s/p PPM, CAD, chronic systolic CHF who presented to ED c/o progressive bilateral lower extremity edema and shortness of breath. He was recently seen in the cardiology office for worsening edema when his Lasix was stopped and he was started on Bumex. However, patient stated that his edema did not improve and actually kept progressing. He denied any chest pain, palpitations or syncope. Bilateral LE doppler negative for DVT, but revealed significant edema. Chest radiograph with interstitial edema. Labs with WBC 14.7, Hb 10.3, platelets 435, Na 145, K 4.2, BUN 42, Cr 1.7, glucose 83, blirubin 1.8, AST 58, Albumin 2.7, BNP 82055 Admitted for further treatment. Vitals/I&O Vitals/I&O: Vital Signs Date Time Temp Pulse Resp B/P (MAP) Pulse Ox O2 Delivery O2 Flow Rate FiO2 07/26/20 11:00 97.6 58 18 125/66 (85) 96 Room Air 97.6 I & O 07/25/20 07/25/20 07/26/20 15:00 23:00 07:00 Intake Total 580 ml 280 ml 0 ml Output Total 700 ml 750 ml 150 ml Balance -120 ml -470 ml -150 ml Physical Exam General: Alert, Oriented X3, Cooperative, moderate distress Heart: Other (Heart rate irregular) Lungs: Crackles Abdomen: Normal bowel sounds, Soft, No tenderness, No hepatosplenomegaly, No masses Extremities: No tenderness/swelling, Other (3+ edema) Skin: No rashes, No breakdown, No significant lesion Labs Labs: Laboratory Tests Test 07/25/20 17:22 07/25/20 18:45 07/25/20 21:16 07/26/20 04:00 Glucose (Fingerstick) 93 mg/dL (70-99) 123 mg/dL (70-99) Procalcitonin < 0.10 ng/mL (0.00-0.10) Digoxin Level 0.8 ng/mL (0.9-2.0) Digoxin Last Dose Date 07/24/20 Digoxin Last Dose Time 0700 White Blood Count 14.7 x10^3/uL (4.0-11.0) Red Blood Count 3.30 x10^6/uL (4.30-5.70) Hemoglobin 9.4 g/dL (13.0-17.5) Hematocrit 31.6 % (39.0-53.0) Mean Corpuscular Volume 96 fL (79-100) Mean Corpuscular Hemoglobin 29 pg (25-35) Mean Corpuscular Hemoglobin Concent 30 g/dL (31-37) Red Cell Distribution Width 25.1 % (11.5-14.5) Platelet Count 446 x10^3/uL (140-400) Neutrophils (%) (Auto) 78 % (31-73) Lymphocytes (%) (Auto) 13 % (24-48) Monocytes (%) (Auto) 4 % (0-9) Eosinophils (%) (Auto) 3 % (0-3) Basophils (%) (Auto) 2 % (0-3) Neutrophils # (Auto) 11.5 x10^3/uL (1.8-7.7) Lymphocytes # (Auto) 2.0 x10^3/uL (1.0-4.8) Monocytes # (Auto) 0.6 x10^3/uL (0.0-1.1) Eosinophils # (Auto) 0.4 x10^3/uL (0.0-0.7) Basophils # (Auto) 0.2 x10^3/uL (0.0-0.2) Prothrombin Time 35.5 SEC (11.7-14.0) Prothromb Time International Ratio 3.5 (0.8-1.1) Sodium Level 146 mmol/L (136-145) Potassium Level 3.7 mmol/L (3.5-5.1) Chloride Level 112 mmol/L (98-107) Carbon Dioxide Level 23 mmol/L (21-32) Anion Gap 11 (6-14) Blood Urea Nitrogen 38 mg/dL (8-26) Creatinine 1.5 mg/dL (0.7-1.3) Estimated GFR (Cockcroft-Gault) 53.4 Glucose Level 54 mg/dL (70-99) Calcium Level 8.6 mg/dL (8.5-10.1) Magnesium Level 2.1 mg/dL (1.8-2.4) Test 07/26/20 08:11 07/26/20 12:14 Glucose (Fingerstick) 78 mg/dL (70-99) 101 mg/dL (70-99) Assessment and Plan Goals of Care: Advance Care Planning: Total time spent [id number] with patient greater than 16 minutes in discussion with goals of care, comfort care, end-of-life care, pain management, code status Comment Review of Relevant I have reviewed the following items tiffany (where applicable) has been applied. Medications: Current Medications Medications (Trade) Dose Ordered Sig/Rakesh Route PRN Reason Start Time Stop Time Status Last Admin Dose Admin Aspirin (Aspirin Chewable) 81 mg BID PO 07/25/20 21:00 07/26/20 08:59 Atorvastatin Calcium (Lipitor) 40 mg DAILY PO 07/26/20 09:00 07/26/20 08:59 Docusate Sodium (Colace) 100 mg TID PO 07/25/20 21:00 07/25/20 21:54 Tamsulosin HCl (Flomax) 0.4 mg QHS PO 07/25/20 21:00 07/25/20 21:54 Psyllium Hydrophilic Mucilloid (Metamucil Fiber Packet) 1 pkt DAILY PO 07/26/20 09:00 07/26/20 08:59 Warfarin Sodium (Coumadin Per Pharmacy) 1 each PRN DAILY PRN MC SEE COMMENTS 07/25/20 17:45 07/26/20 14:02 Warfarin Sodium (Coumadin) 1.5 mg 1X ONCE PO 07/25/20 17:45 07/25/20 17:52 DC 07/25/20 18:31 Metoprolol Succinate (Toprol Xl) 50 mg DAILY PO 07/26/20 09:00 07/26/20 08:59 Justifications for Admission General Conditions Poss tachycardia?: Yes Justification for admission: Patient has tachycardia (> 100 beats per minute) which is not readily corrected by appropriate treatment within 12 to 24 hours. Other Justification JOSÉ MIGUEL BEE MD Jul 26, 2020 14:10
--- NOTE | 2020-07-26 14:34 | NUR ---
SS following for discharge planning. SS reviewed pt chart and discussed with pt RN. Pt is from home with spouse and is currently on room air. Cardiology following. SS will continue to follow for discharge planning.
[2020-07-26 15:00] VITALS: BP 116/52
[2020-07-26] MEDS ORDERED: BENZONATATE 100 MG CAPSULE. PO SCH (17:15)
[2020-07-26 19:00] VITALS: BP 128/69
[2020-07-26] MEDS: TAMSULOSIN 0.4 MG CAP.ER.24H. PO SCH (21:34)
[2020-07-26 23:44] VITALS: BP 114/62
[2020-07-27 03:20] VITALS: BP 95/47
[2020-07-27 07:00] VITALS: BP 121/58
[2020-07-27] MEDS: DOCUSATE SODIUM 100 MG CAPSULE. PO SCH ×3 (09:00→21:31)
[2020-07-27 09:03] LABS: PROTHROMBIN TIME PATIENT 26.6 SEC (11.7-14.0)
[2020-07-27 09:10] LABS: CALCIUM 8.5 mg/dL (8.5-10.1); CREATININE 1.3 mg/dL (0.7-1.3); POTASSIUM 3.8 mmol/L (3.5-5.1)
[2020-07-27] MEDS: ASPIRIN CHEWABLE 81 MG TABLET. PO SCH (09:53)
[2020-07-27] MEDS: ATORVASTATIN CALCIUM 40 MG TABLET. PO SCH (09:53)
[2020-07-27] MEDS: BUMETANIDE 1 MG/4 ML VIAL. IV SCH ×2 (09:54→14:48)
[2020-07-27] MEDS: METOPROLOL SUCC 24HR ER 50 MG TAB.ER.24H. PO SCH (09:54)
[2020-07-27] MEDS: PSYLLIUM HUSK (SUGAR FREE) 1 PKT PACKET PO SCH (09:54)
--- NOTE | 2020-07-27 10:48 | PDOC ---
[facility] PROGRESS NOTE Date of Service DOS: DATE: 07/27/20 TIME: 10:45 Chief Complaint Chief Complaint Acute on chronic combined systolic and diastolic heart failure. We will diurese with intravenous Bumex. 2D echo in September 2019 showed LVEF 40%. Coronary artery disease: Patient has known chronic total occlusion of LAD with collaterals, presently stable and chest pain-free. Lexiscan nuclear stress test in March 2020 showed large inferior infarct without any significant ischemia. Continue current secondary prevention measures. Sick sinus syndrome s/p permanent pacemaker implantation with more recent generator change. Recent device check showed normal function. He denied any syncope or near syncope. Permanent atrial fibrillation: Telemetry showed demand pacing. Patient on warfarin for stroke prophylaxis. Check PT/INR. Hypertension - Controlled. Will back off on his BB. He is actually on 100mg metoprolol tartrate Hyperlipidemia - Continue statin Diabetes mellitus type 2 - diet controlled, A1c previously 5.8 Protein calorie malnutrition - severe given his edema and albumin. 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 Will obtain procalcitonin to help guide initiation of antibiotic therapy for low suspicion for pneumonia FEN - Cardiac ADA diet PPX - warfarin CODE - FULL Dispo - inpatient CVC for CHF exacerbation History of Present Illness History of Present Illness 07/27/2020 No acute events overnight. Patient sodium has increased from 143 to 148. Patient with adequate diuresis with IV diuretics. Cardiology recommending a few more days for diuresis. Continue fluid restriction and daily weights. No concerns per nursing. Some improvement in lower extremity swelling. Saturating 98% on room air. Patient's chart, labs, images were reviewed and discussed with RN 07/26/2020 No acute events overnight. Patient with 1.6 urine output and negative fluid balance since yesterday of -740 cc. Patient has reduced lower extremity swelling and feels better. Currently saturating 96% on room air. Patient's chart, labs, images were reviewed and discussed with RN Advance care planning: A total time of > 17 minutes was spent from 10:00 to 1030 face to face in discussion with the patient regarding their goals of care, 89yo M w/ PMHx DM2, HLD, HTN, afib, SSS s/p PPM, CAD, chronic systolic CHF who presented to ED c/o progressive bilateral lower extremity edema and shortness of breath. He was recently seen in the cardiology office for worsening edema when his Lasix was stopped and he was started on Bumex. However, patient stated that his edema did not improve and actually kept progressing. He denied any chest pain, palpitations or syncope. Bilateral LE doppler negative for DVT, but revealed significant edema. Chest radiograph with interstitial edema. Labs with WBC 14.7, Hb 10.3, platelets 435, Na 145, K 4.2, BUN 42, Cr 1.7, glucose 83, blirubin 1.8, AST 58, Albumin 2.7, BNP 15639 Admitted for further treatment. Vitals/I&O Vitals/I&O: Vital Signs Date Time Temp Pulse Resp B/P (MAP) Pulse Ox O2 Delivery O2 Flow Rate FiO2 07/27/20 09:54 61 121/58 07/27/20 07:00 98.5 16 98 Room Air 98.5 I & O 07/26/20 07/26/20 07/27/20 15:00 23:00 07:00 Intake Total 180 ml 225 ml 0 ml Output Total 200 ml Balance -20 ml 225 ml 0 ml Physical Exam General: Alert, Oriented X3, Cooperative, moderate distress Heart: Other (Heart rate irregular) Lungs: Crackles Abdomen: Normal bowel sounds, Soft, No tenderness, No hepatosplenomegaly, No masses Extremities: No tenderness/swelling, Other (3+ edema) Skin: No rashes, No breakdown, No significant lesion Labs Labs: Laboratory Tests Test 07/26/20 12:14 07/26/20 17:16 07/26/20 21:34 07/27/20 07:41 Glucose (Fingerstick) 101 mg/dL (70-99) 94 mg/dL (70-99) 107 mg/dL (70-99) 81 mg/dL (70-99) Test 07/27/20 08:30 Prothrombin Time 26.6 SEC (11.7-14.0) Prothromb Time International Ratio 2.5 (0.8-1.1) Sodium Level 148 mmol/L (136-145) Potassium Level 3.8 mmol/L (3.5-5.1) Chloride Level 112 mmol/L (98-107) Carbon Dioxide Level 24 mmol/L (21-32) Anion Gap 12 (6-14) Blood Urea Nitrogen 36 mg/dL (8-26) Creatinine 1.3 mg/dL (0.7-1.3) Estimated GFR (Cockcroft-Gault) 63.0 Glucose Level 79 mg/dL (70-99) Calcium Level 8.5 mg/dL (8.5-10.1) Magnesium Level 2.0 mg/dL (1.8-2.4) Comment Review of Relevant I have reviewed the following items tiffany (where applicable) has been applied. Medications: Current Medications Medications (Trade) Dose Ordered Sig/Rakesh Route PRN Reason Start Time Stop Time Status Last Admin Dose Admin Warfarin Sodium (Coumadin - No Dose Today) 1 each 1X WARF ONCE MC 07/26/20 16:00 07/26/20 16:01 DC 07/26/20 16:00 Justifications for Admission General Conditions Poss tachycardia?: Yes Justification for admission: Patient has tachycardia (> 100 beats per minute) which is not readily corrected by appropriate treatment within 12 to 24 hours. Other Justification JOSÉ MIGUEL BEE MD Jul 27, 2020 10:48
[2020-07-27 11:00] VITALS: BP 111/56
--- NOTE | 2020-07-27 12:09 | NUR ---
Pharmacy Warfarin Dosing Note S:Pharmacy consulted to assist with anticoagulation therapy with target INR: 2 -3 O:MAMTA MACIAS is a 89 year old M with Atrial Fibrillation LABS: Last INR: 2.5 Last HGB: 9.4 Last HCT: 31.6 Last PLT: 446 Last dose of Hold given on 07/26/20 at 1600 Previous Regimen: 2MG/DAY A:INR of 2.5 is within desired range. Target range for this patient is: 2 -3 P: Warfarin dose: 2 mg Today at 1600 Bridge Therapy: none Next INR due tomorrow Pharmacy anticoagulation service will continue to follow. Kassandra Acevedo RPH, 07/27/20 [id number]
--- NOTE | 2020-07-27 12:48 | NUR ---
SS following up with discharge planning. SS reviewed pt chart and discussed with pt RN. Pt is currently on room air. Cardiology following. Pt diuresing today. Discharge plan is to home when medically ready. SS will continue to follow for discharge planning.
--- NOTE | 2020-07-27 14:40 | PDOC ---
MIKE ELLIOTT STONE REPAIRER 07/27/20 1440: CARDIO Progress Notes Date and Time Date of Service 07/27/2020 Time of Evaluation 1410 Subjective Subjective: No Chest Pain, No shortness of breath, No Palpitations Vitals Vitals Vital Signs Date Time Temp Pulse Resp B/P (MAP) Pulse Ox O2 Delivery O2 Flow Rate FiO2 07/27/20 11:00 97.5 56 16 111/56 (74) 98 Room Air 97.5 Weight Weight [ ] Input and Output Intake and Output Intake and Output 07/27/20 07:00 Intake Total 405 ml Output Total 200 ml Balance 205 ml Intake Oral 405 ml Output Urine Total 200 ml # Voids 2 # Bowel Movements 1 Laboratory Labs Laboratory Tests Test 07/26/20 17:16 07/26/20 21:34 07/27/20 07:41 07/27/20 08:30 Glucose (Fingerstick) 94 mg/dL (70-99) 107 mg/dL (70-99) 81 mg/dL (70-99) Prothrombin Time 26.6 SEC (11.7-14.0) Prothromb Time International Ratio 2.5 (0.8-1.1) Sodium Level 148 mmol/L (136-145) Potassium Level 3.8 mmol/L (3.5-5.1) Chloride Level 112 mmol/L (98-107) Carbon Dioxide Level 24 mmol/L (21-32) Anion Gap 12 (6-14) Blood Urea Nitrogen 36 mg/dL (8-26) Creatinine 1.3 mg/dL (0.7-1.3) Estimated GFR (Cockcroft-Gault) 63.0 Glucose Level 79 mg/dL (70-99) Calcium Level 8.5 mg/dL (8.5-10.1) Magnesium Level 2.0 mg/dL (1.8-2.4) Test 07/27/20 12:27 Glucose (Fingerstick) 93 mg/dL (70-99) Physical Exam HEENT: Neck Supple W Full Motion Chest: Symmetric LUNGS: Other (basilar crackles) Heart: irregularly irregular (intermittent V pacing with underlying AFIB) Abdomen: Soft N/T Extremities: Other (-+ bilateral LE edema ) Neurology: alert, oriented, follow commands Assessment Assessment 1. Acute on chronic conbined diastolic/systolicCHF with ICM Echo 09/26 with LVEF 40% 2. CAD; catheterization 08/2018 with [employer] of LAD with collaterals, which is unchanged from previous cath in 2013. clinically stable, CP free. 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 3. Permanent AFIB; rate controlled with BB. on warfarin for stroke prevention. INR 2.5 4. 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 Trace) - recent device check showed normal function. no dizziness, syncope 5. Hypertension; controlled 6. Hyperlipidemia; statin 7. Diabetes, II; as per IM 8. DION: Cr better Recommendations 1. Continue bumex. Unable to tally ouput due to incontinence and failure to utilize urinal, discussed with RN 2. TTE in AM 3. Secondary prevention measures 4. Supportive care Justicifation of Admission Dx: Justifications for Admission: Justification of Admission Dx: Yes SHAWN PARKER MD 07/27/20 8472: CARDIO Progress Notes Assessment Assessment Patient seen and examined. Agree with MEDICAL SALES's assessment and plan. Acute on chr combined systolic and diastolic HF better compensated with diuresis with IV bumex Perm AF rate controlled SSS s/p PPM stable MIKE ELLIOTT STONE REPAIRER Jul 27, 2020 14:40 SHAWN PARKER MD Jul 27, 2020 18:52
[2020-07-27] MEDS ORDERED: BUMETANIDE 1 MG/4 ML VIAL. IV ONE (14:45)
[2020-07-27 15:00] VITALS: BP 114/92
[2020-07-27] MEDS ORDERED: WARFARIN 2 MG TABLET. PO ONE (16:00)
[2020-07-27 19:42] VITALS: BP 106/58
[2020-07-27] MEDS: TAMSULOSIN 0.4 MG CAP.ER.24H. PO SCH (21:31)
[2020-07-27 23:16] VITALS: BP 110/55
[2020-07-28 02:31] VITALS: BP 113/59
[2020-07-28 07:00] VITALS: BP 120/57
[2020-07-28] MEDS: METOPROLOL SUCC 24HR ER 50 MG TAB.ER.24H. PO SCH (08:29)
[2020-07-28] MEDS: ATORVASTATIN CALCIUM 40 MG TABLET. PO SCH (08:30)
[2020-07-28] MEDS: BUMETANIDE 1 MG/4 ML VIAL. IV SCH (08:30)
[2020-07-28] MEDS: DOCUSATE SODIUM 100 MG CAPSULE. PO SCH ×2 (08:30→14:00)
[2020-07-28] MEDS: PSYLLIUM HUSK (SUGAR FREE) 1 PKT PACKET PO SCH (08:30)
[2020-07-28] MEDS ORDERED: ASPIRIN CHEWABLE 81 MG TABLET. PO SCH (09:00)
--- NOTE | 2020-07-28 09:55 | PDOC ---
[facility] PROGRESS NOTE Date of Service DOS: DATE: 07/28/20 TIME: 09:53 Chief Complaint Chief Complaint CHF Exacerbation History of Present Illness History of Present Illness 07/28/20 Patient seen and examined at bedside Chart reviewed Discussed with RN Discussed with case management Possible Echo today per cardiology 07/27/2020 No acute events overnight. Patient sodium has increased from 143 to 148. Patient with adequate diuresis with IV diuretics. Cardiology recommending a few more days for diuresis. Continue fluid restriction and daily weights. No concerns per nursing. Some improvement in lower extremity swelling. Saturating 98% on room air. Patient's chart, labs, images were reviewed and discussed with RN 07/26/2020 No acute events overnight. Patient with 1.6 urine output and negative fluid balance since yesterday of -740 cc. Patient has reduced lower extremity swelling and feels better. Currently saturating 96% on room air. Patient's chart, labs, images were reviewed and discussed with RN Advance care planning: A total time of > 17 minutes was spent from 10:00 to 1030 face to face in discussion with the patient regarding their goals of care, 89yo M w/ PMHx DM2, HLD, HTN, afib, SSS s/p PPM, CAD, chronic systolic CHF who presented to ED c/o progressive bilateral lower extremity edema and shortness of breath. He was recently seen in the cardiology office for worsening edema when his Lasix was stopped and he was started on Bumex. However, patient stated that his edema did not improve and actually kept progressing. He denied any chest pain, palpitations or syncope. Bilateral LE doppler negative for DVT, but revealed significant edema. Chest radiograph with interstitial edema. Labs with WBC 14.7, Hb 10.3, platelets 435, Na 145, K 4.2, BUN 42, Cr 1.7, glucose 83, blirubin 1.8, AST 58, Albumin 2.7, BNP 39308 Admitted for further treatment. Vitals/I&O Vitals/I&O: Vital Signs Date Time Temp Pulse Resp B/P (MAP) Pulse Ox O2 Delivery O2 Flow Rate FiO2 07/28/20 08:29 68 120/57 07/28/20 07:00 98.3 16 95 Room Air 98.3 I & O 07/27/20 07/27/20 07/28/20 15:00 23:00 07:00 Intake Total 180 ml 75 ml 300 ml Balance 180 ml 75 ml 300 ml Physical Exam General: Alert, Oriented X3, Cooperative, moderate distress Heart: Other (Heart rate irregular) Lungs: Crackles Abdomen: Normal bowel sounds, Soft, No tenderness, No hepatosplenomegaly, No masses Extremities: Other (2+ edema) Skin: No rashes, No breakdown, No significant lesion Labs Labs: Laboratory Tests Test 07/27/20 12:27 07/27/20 20:38 07/28/20 07:58 Glucose (Fingerstick) 93 mg/dL (70-99) 96 mg/dL (70-99) 74 mg/dL (70-99) Assessment and Plan Assessmemt and Plan Assessment Acute on chronic combined systolic and diastolic heart failure Coronary Artery Disease Sick Sinus Syndrome s/p Permanent Pacemaker Implantation Permanent AFib Hypertension Hyperlipidemia Diabetes mellitus type 2 Plan Cardiac monitoring Continue diuretics per cardiology instruction Echo today PT/OT Continue home medications DVT Prophylaxis Full Code Discharge disposition pending to home Appreciate all subspecialist input Comment Review of Relevant I have reviewed the following items tiffany (where applicable) has been applied. Medications: Current Medications Medications (Trade) Dose Ordered Sig/Rakesh Route PRN Reason Start Time Stop Time Status Last Admin Dose Admin Warfarin Sodium (Coumadin) 2 mg 1X WARF ONCE PO 07/27/20 16:00 07/27/20 16:01 DC 07/27/20 14:53 Aspirin (Aspirin Chewable) 81 mg DAILY PO 07/28/20 09:00 07/28/20 08:25 Justifications for Admission General Conditions Poss tachycardia?: Yes Justification for admission: Patient has tachycardia (> 100 beats per minute) which is not readily corrected by appropriate treatment within 12 to 24 hours. Other Justification CARSON ELE III DO Jul 28, 2020 09:55
[2020-07-28 10:26] LABS: PROTHROMBIN TIME PATIENT 23.2 SEC (11.7-14.0)
[2020-07-28 10:53] VITALS: BP 109/58
--- NOTE | 2020-07-28 11:24 | NUR ---
Pharmacy Warfarin Dosing Note S:Pharmacy consulted to assist with anticoagulation therapy started with target INR: 2 -3 O:MAMTA MACIAS is a 89 year old M with Atrial Fibrillation LABS: Last INR: 2.1 Last HGB: 9.4 Last HCT: 31.6 Last PLT: 446 Last dose of 2 mg given on 07/27/20 at 1453 Previous Regimen: 2MG/DAY A:INR of 2.1 is within desired range. Target range for this patient is: 2 -3 P: Warfarin dose: 2 mg Today at 1600 Bridge Therapy: none Next INR due 07/29/20. Pharmacy anticoagulation service will continue to follow. REGINA WANG RPH, 07/28/20 1126
--- NOTE | 2020-07-28 12:49 | PDOC ---
MIKE ELLIOTT CURTAIN MENDER 07/28/20 1249: CARDIO Progress Notes Date and Time Date of Service 07/28/2020 Time of Evaluation 1230 Subjective Subjective: No Chest Pain, No shortness of breath, No Palpitations Vitals Vitals Vital Signs Date Time Temp Pulse Resp B/P (MAP) Pulse Ox O2 Delivery O2 Flow Rate FiO2 07/28/20 10:53 98.2 50 16 109/58 (75) 96 Room Air 98.2 Weight Weight [ ] Input and Output Intake and Output Intake and Output 07/28/20 07:00 Intake Total 555 ml Balance 555 ml Intake Oral 555 ml # Voids 4 # Bowel Movements 2 Laboratory Labs Laboratory Tests Test 07/27/20 20:38 07/28/20 07:58 07/28/20 09:05 Glucose (Fingerstick) 96 mg/dL (70-99) 74 mg/dL (70-99) Prothrombin Time 23.2 SEC (11.7-14.0) Prothromb Time International Ratio 2.1 (0.8-1.1) Physical Exam HEENT: Neck Supple W Full Motion Chest: Symmetric LUNGS: Other (diminished bases) Heart: irregularly irregular (intermittent V pacing with underlying AFIB) Abdomen: Soft N/T Extremities: Other (-+ bilateral LE edema ) Neurology: alert, oriented, follow commands Assessment Assessment 1. Acute on chronic conbined diastolic/systolicCHF with ICM Echo 09/26 with LVEF 40% 2. CAD; catheterization 08/2018 with [employer] of LAD with collaterals, which is unchanged from previous cath in 2013. clinically stable, CP free. 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 3. Permanent AFIB; rate controlled with BB. on warfarin for stroke prevention. INR 2.1 4. 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 Trace) - recent device check showed normal function. no dizziness, syncope 5. Hypertension; controlled 6. Hyperlipidemia; statin 7. Diabetes, II; as per IM 8. DION: Cr better Recommendations 1. Continue bumex convert to PO 2. TTE today. repeat BMP 3. Secondary prevention measures 4. Anticipate DC this afternoon, follow up in office. Justicifation of Admission Dx: Justifications for Admission: Justification of Admission Dx: Yes SHAWN PARKER MD 07/29/20 0610: CARDIO Progress Notes Assessment Assessment Patient seen and examined 07/28/20. Agree with MANAGER TRUCK's assessment and plan. Acute on chr combined systolic and diastolic HF better compensated with diuresis with IV bumex - change to PO 2D echo showed EF 45% Perm AF rate controlled SSS s/p PPM stable OK for DC from cardiac standpoint MIKE ELLIOTT APRN Jul 28, 2020 12:49 SHAWN PARKER MD Jul 29, 2020 06:10
[2020-07-28 13:35] LABS: CALCIUM 8.7 mg/dL (8.5-10.1); CREATININE 1.4 mg/dL (0.7-1.3); GFR 57.9; POTASSIUM 4.3 mmol/L (3.5-5.1)
[2020-07-28 15:00] VITALS: BP 112/57
--- NOTE | 2020-07-28 15:19 | NUR ---
PAGED DR LEE. PT HAS BEEN DISCHARGED BUT MEDICATIONS HAVE NOT BEEN FINALIZED.
[2020-07-28] MEDS ORDERED: BUME1TAB3 PO (15:45)
[2020-07-28] MEDS ORDERED: WARFARIN 2 MG TABLET. PO ONE (16:00)
[2020-07-28] MEDS ORDERED: BUMETANIDE 1 MG TABLET. PO SCH (16:00)
--- NOTE | 2020-07-28 16:20 | NUR ---
Discharge Note: MICHELL MACIASE2 [facility] Discharge instructions and discharge home medications reviewed with Patient and a copy given. All questions have been answered and understanding verbalized. The following instructions and handouts were given: CHF Discontinued lines and drains: Peripheral IV intact. Patient discharged to Home or Self Care with Family Member via Wheelchair
--- NOTE | 2020-07-28 16:25 | CARD ---
MR#: [id number] Date of Study: 07/28/2020 Ordering Physician: MIKE ELLIOTT, Referring Physician: MIKE ELLIOTT, Tech: Linnea Hampton, [facility] [place] APPROVED REPORT EXAM: Two-dimensional and M-mode echocardiogram with Doppler and color Doppler. Other Information Quality : AverageHR: 52bpm INDICATION Cardiomyopathy Congestive Heart Failure Surgery/Intervention Pacemaker: RISK FACTORS Hypertension Hyperlipidemia Diabetes 2D DIMENSIONS RVDd4.5 (2.9-3.5cm)Left Atrium(2D)4.6 (1.6-4.0cm) IVSd1.1 (0.7-1.1cm)Aortic Root(2D)4.3 (2.0-3.7cm) LVDd6.0 (3.9-5.9cm)LVOT Diameter2.2 (1.8-2.4cm) PWd1.2 (0.7-1.1cm)LVDs4.1 (2.5-4.0cm) FS (%) 31.8 %SV105.2 ml LVEF(%)59.0 (>50%) Aortic Valve AoV Peak Pedro.109.8cm/sAoV VTI22.9cm AO Peak GR.4.8mmHgLVOT Peak Pedro.63.1cm/s LVOT VTI 13.58cmAO Mean GR.2mmHg RAINE (VMAX)1.56op4IIV (VTI)2.16cm2 Mitral Valve MV E Zshmtdly439.1cm/sMV E Peak Gr.95mmHg MV DECEL [id number] A Ccfmfhrt29.4cm/s MV MWO68osE/A Ratio3.9 MVA (PHT)3.98cm2 TDI E/Lateral E'6.5E/Medial E'7.5 Pulmonary Valve PV Peak Vwcswurz385.7cm/sPV Peak Grad.4mmHg Tricuspid Valve TR P. Rcuoqelo686vm/sRAP [id number] TR Peak Gr.46swSpCXPO14zjSw LEFT VENTRICLE The Left Ventricle is mildly dilated. There is mild concentric left ventricular hypertrophy. The left ventricular systolic function is mildly decreased. EF 45% Septal motion suggestive of conduction def ect. Mild global hypokinesis. Tissue Doppler imaging reveals moderate left ventricular diastolic dysf unction. No left ventricle thrombus noted on this study. RIGHT VENTRICLE The right ventricle is moderately dilated. The right ventricle is mildly hypertrophied. The right wiliam tricular systolic function is normal. There is a pacing lead noted in the right atrium and right vent ricle. ATRIA The left atrium is moderately dilated. The right atrium is moderately dilated. The interatrial septum is intact with no evidence for an atrial septal defect or patent foramen ovale as noted on 2-D or Do ppler imaging. AORTIC VALVE The aortic valve is normal in structure and function. Doppler and Color Flow revealed trace aortic re gurgitation. There is no significant aortic valvular stenosis. Calculated aortic valve area is 1.89 c m2 with maximum pressure gradient of 6 mmHg and mean pressure gradient of 3 mmHg. MITRAL VALVE The mitral valve is normal in structure and function. There is no evidence of mitral valve prolapse. There is no mitral valve stenosis. The mitral regurgitant jet is eccentrically directed. Doppler and Color-flow revealed trace to mild mitral regurgitation. TRICUSPID VALVE The tricuspid valve is normal in structure and function. Doppler and Color Flow revealed mild tricusp id regurgitation with an estimated PAP of 81 mmHg. There is severe pulmonary hypertension. There is n o tricuspid valve stenosis. PULMONIC VALVE The pulmonary valve is normal in structure and function. Doppler and Color Flow revealed mild to mode rate pulmonic valvular regurgitation. There is no pulmonic valvular stenosis. GREAT VESSELS The aortic root is mildly to moderately enlarged. The IVC is dilated. PERICARDIAL EFFUSION There is no evidence of significant pericardial effusion. Critical Notification Critical Value: No <Conclusion> The left ventricular systolic function is mildly decreased. EF 45% Septal motion suggestive of conduction defect. Mild global hypokinesis. There is a pacing lead noted in the right atrium and right ventricle. Doppler and Color Flow revealed mild tricuspid regurgitation with an estimated PAP of 81 mmHg. There is severe pulmonary hypertension. Signed by : Prosper Naranjo, Electronically Approved : 07/28/2020 16:24:45
[2020-07-29] MEDS ORDERED: POTASSIUM CHLORIDE 20 MEQ TABLET.ER. PO SCH (08:00)
--- NOTE | 2020-07-29 21:12 | DS ---
DATE OF DISCHARGE: 07/28/2020 ADMISSION DIAGNOSES: Acute on chronic systolic and diastolic heart failure, history of anticoagulation, benign prostatic hypertrophy. DISCHARGE DIAGNOSES: Resolving heart failure, history of atrial fibrillation, coronary artery disease, hypertension, hyperlipidemia, chronic obstructive pulmonary disease, osteoarthritis, diabetes, history of anticoagulation, benign prostatic hypertrophy. CONSULTS: Cardiology. PROCEDURES: None. HOSPITAL COURSE: The patient is a pleasant middle-aged male, who presented with shortness of breath. He was noted to be in heart failure. He was admitted. We gave him IV Lasix. We did serial enzymes, serial EKGs, cardiac monitoring and consulted cardiology. Over the next couple days, he returned to his baseline. We were able to discharge him home with close outpatient followup. DISCHARGE DISPOSITION: Home. ACTIVITY: As tolerated. DIET: Cardiac. MEDICATIONS: Please see the MRAD. Vitamin C, aspirin 81 a day, atorvastatin 40 a day, Bumex 1 mg b.i.d., digoxin 0.125 a day, Colace 100 t.i.d., Lortab 5/325 one every 6 hours p.r.n. pain, metoprolol 100 every day, psyllium powder, Flomax 0.4 a day, Coumadin 5 a day. TOTAL TIME: [address]: Grzegorz TID: [id number]
== END 2020-07-28 16:21 | disposition home or self-care (01) | DRG 291 ==
LOC: ER 23:20 → 2 SOUTH 07-25 05:40 → OBSVTOIN 07-25 17:40
PROVIDERS: ADMIT Family Medicine; ATTEND Family Medicine
DX: I11.0 Hypertensive heart disease with heart failure (principal); E43 Unspecified severe protein-calorie malnutrition; N17.9 Acute kidney failure, unspecified; I48.21 Permanent atrial fibrillation; I50.43 Acute on chronic combined systolic (congestive) and diastolic (congestive) heart failure; D72.829 Elevated white blood cell count, unspecified; E78.00 Pure hypercholesterolemia, unspecified; E78.5 Hyperlipidemia, unspecified; I25.10 Atherosclerotic heart disease of native coronary artery without angina pectoris; I25.5 Ischemic cardiomyopathy; E11.9 Type 2 diabetes mellitus without complications; I49.5 Sick sinus syndrome; J44.9 Chronic obstructive pulmonary disease, unspecified; M19.90 Unspecified osteoarthritis, unspecified site; M79.604 Pain in right leg; N40.0 Benign prostatic hyperplasia without lower urinary tract symptoms; Z68.25 Body mass index [BMI] 25.0-25.9, adult; Z87.891 Personal history of nicotine dependence; Z95.0 Presence of cardiac pacemaker; Z90.49 Acquired absence of other specified parts of digestive tract; Z82.49 Family history of ischemic heart disease and other diseases of the circulatory system
CPT/HCPCS: 36415; 71045; 80048; 80053; 80162; 81001; 82962; 83735; 83880; 84145; 85007; 85025; 85379; 85610; 93005; 93306; 93970; 96374; 99285; G0378; G0379; J1940; J3490

== ENCOUNTER 2020-09-03 19:08 | Inpatient (IN) | payer MEDICARE ==
[~2020-09-03] VITALS: Ht 182.9 cm; Wt 88.2 kg
--- NOTE | 2020-09-03 19:48 | ED.ADGEN ---
Past Medical History Past Medical History: A-Fib, CAD, CHF, Diabetes-Type II, High Cholesterol, Heart Disease, Hypertension Additional Past Medical Histor: CPAP @ NOC, Past Surgical History: Cholecystectomy, Pacemaker Additional Past Surgical Histo: LEG VEINS, hernia repair, Pacemaker Smoking Status: Former Smoker Alcohol Use: None Drug Use: None General Adult EDM: Chief Complaint: SHORTNESS OF BREATH HPI: HPI: Patient is a 89 year old male coming in for shortness of breath. Has had worsening shortness of breath of the past few days with lower extremity edema. Patient states he has a history of heart failure been compliant with medications. Denies any fevers. States has had a occasional cough productive of clear mucus. Denies any vomiting or diarrhea. Patient was hospitalized for CHF exacerbation about 1 month ago. Review of Systems: Review of Systems: All other systems within normal limits except for as noted in the HPI Current Medications: Current Medications Medications (Trade) Dose Ordered Sig/Rakesh Start Time Stop Time Status Last Admin Dose Admin Acetaminophen (Tylenol) 650 mg PRN Q4HRS PRN 09/03/20 21:00 09/04/20 20:59 Furosemide (Lasix) 40 mg 1X ONCE 09/03/20 21:00 09/03/20 21:01 DC 09/03/20 21:07 40 MG Morphine Sulfate (Morphine Sulfate) 2 mg PRN Q2HR PRN 09/03/20 21:00 09/04/20 20:59 Ondansetron HCl (Zofran) 4 mg PRN Q8HRS PRN 09/03/20 21:00 09/04/20 20:59 Piperacillin Sod/ Tazobactam Sod 3.375 gm/Sodium Chloride 50 ml @ 100 mls/hr 1X ONCE 09/03/20 21:00 09/03/20 21:29 DC 09/03/20 21:08 100 MLS/HR Allergies: Allergies: Allergies Coded Allergies Type Severity Reaction Last Updated Verified I S O L A T I O N *CONTACT* Allergy Unknown 10/15/18 Yes No Known Medication Allergies Allergy Unknown 10/15/18 Yes Physical Exam: PE: Constitutional: Well developed, well nourished, no acute distress, non-toxic appearance. [] HENT: Normocephalic, atraumatic, bilateral external ears normal, nose normal. [] Eyes: PERRLA, conjunctiva normal, no discharge. [] Neck: No rigidity, supple, no stridor. [] Cardiovascular: Regular rate and rhythm, brisk cap refill, bradycardic regular rhythm, JVD [] Lungs & Thorax: Non labored symmetric respirations, no tachypnea or respiratory distress [] Abdomen: Soft, nondistended. Skin: Warm, dry, no erythema, no rash. [] Back: Unremarkable Extremities: No deformities, range of motion grossly intact, 3+ bilateral lower extremity edema [] Neurologic: Alert and oriented X 3, no focal deficits noted. [] Psychologic: Affect normal, judgement normal, mood normal. [] Current Patient Data: Labs: Laboratory Tests Test 09/03/20 19:46 White Blood Count 27.7 x10^3/uL (4.0-11.0) H Red Blood Count 3.84 x10^6/uL (4.30-5.70) L Hemoglobin 11.0 g/dL (13.0-17.5) L Hematocrit 35.1 % (39.0-53.0) L Mean Corpuscular Volume 92 fL (79-100) Mean Corpuscular Hemoglobin 29 pg (25-35) Mean Corpuscular Hemoglobin Concent 31 g/dL (31-37) Red Cell Distribution Width 24.3 % (11.5-14.5) H Platelet Count 499 x10^3/uL (140-400) H Neutrophils (%) (Auto) 87 % (31-73) H Lymphocytes (%) (Auto) 7 % (24-48) L Monocytes (%) (Auto) 2 % (0-9) Eosinophils (%) (Auto) 2 % (0-3) Basophils (%) (Auto) 2 % (0-3) Neutrophils # (Auto) 24.1 x10^3/uL (1.8-7.7) H Lymphocytes # (Auto) 2.0 x10^3/uL (1.0-4.8) Monocytes # (Auto) 0.5 x10^3/uL (0.0-1.1) Eosinophils # (Auto) 0.5 x10^3/uL (0.0-0.7) Basophils # (Auto) 0.6 x10^3/uL (0.0-0.2) H Segmented Neutrophils % 88 % (35-66) H Band Neutrophils % 2 % (0-9) Lymphocytes % 5 % (24-48) L Monocytes % 2 % (0-10) Eosinophils % 2 % (0-5) Basophils % 1 % (0-3) Nucleated Red Blood Cells 3 Platelet Estimate Increased (ADEQUATE) Large Platelets Few Giant Platelets Few Polychromasia Mod Poikilocytosis Slight Microcytosis Slight Macrocytosis Mod Tear Drop Cells Occ Ovalocytes Occ Sodium Level 144 mmol/L (136-145) Potassium Level 4.1 mmol/L (3.5-5.1) Chloride Level 110 mmol/L (98-107) H Carbon Dioxide Level 23 mmol/L (21-32) Anion Gap 11 (6-14) Blood Urea Nitrogen 60 mg/dL (8-26) H Creatinine 2.2 mg/dL (0.7-1.3) H Estimated GFR (Cockcroft-Gault) 34.4 BUN/Creatinine Ratio 27 (6-20) H Glucose Level 88 mg/dL (70-99) Calcium Level 8.9 mg/dL (8.5-10.1) Phosphorus Level 4.1 mg/dL (2.6-4.7) Magnesium Level 2.4 mg/dL (1.8-2.4) Total Bilirubin 2.4 mg/dL (0.2-1.0) H Aspartate Amino Transferase (AST) 64 U/L (15-37) H Alanine Aminotransferase (ALT) 12 U/L (16-63) L Alkaline Phosphatase 147 U/L (46-116) H Troponin I Quantitative < 0.017 ng/mL (0.000-0.055) HN-Dua-H-Type Natriuretic Peptide 71314 pg/mL (0-449) H Total Protein 6.4 g/dL (6.4-8.2) Albumin 3.0 g/dL (3.4-5.0) L Albumin/Globulin Ratio 0.9 (1.0-1.7) L Thyroid Stimulating Hormone (TSH) 5.598 uIU/mL (0.358-3.74) H Laboratory Tests 09/03/20 19:46 Laboratory Tests 09/03/20 19:46 Vital Signs: Vital Signs Date Time Temp Pulse Resp B/P (MAP) Pulse Ox O2 Delivery O2 Flow Rate FiO2 09/03/20 20:56 48 15 127/58 (81) 98 Room Air 09/03/20 19:10 97.6 97.6 EKG: EKG: Ventricular paced rhythm, heart rate 50 bpm, no ST elevation or depression, left axis deviation. [] Heart Score: C/O Chest Pain: No Risk Factors: Risk Factors: DM, Current or recent (<one month) smoker, HTN, HLP, family history of CAD, obesity. Risk Scores: Score 0 - 3: 2.5% MACE over next 6 weeks - Discharge Home Score 4 - 6: 20.3% MACE over next 6 weeks - Admit for Clinical Observation Score 7 - 10: 72.7% MACE over next 6 weeks - Early Invasive Strategies Radiology/Procedures: Radiology/Procedures: Exam: Chest one view INDICATION: CHF TECHNIQUE: Frontal view of the chest Comparisons: 07/24/2020 FINDINGS: Pacer with leads terminating the right atrium and ventricle. Heart is mildly enlarged. Prominence of the pulmonary artery is stable. Interstitial airspace disease in lungs, mildly increased. Stable cystic lesion a t the left lateral costophrenic angle. IMPRESSION: Findings likely related to mild pulmonary edema [] Course & Med Decision Making: Course & Med Decision Making Pertinent Labs and Imaging studies reviewed. (See chart for details) Admit to hospitalist for CHF exacerbation, Dr. Woods accepts care [] Trini Disclaimer: Trini Disclaimer: This electronic medical record was generated, in whole or in part, using a voice recognition dictation system. Departure Departure Impression: Primary Impression: CHF exacerbation Disposition: ADMITTED INPATIENT Admitting Physician: LESLYE Condition: STABLE Referrals: DAVID CHAPIN MD (PCP) MEILY SANCHEZ MD September 03, 2020 19:48
[2020-09-03 19:59] LABS: BASO # 0.6 x10^3/uL (0.0-0.2); BASO % 2 % (0-3); EOS # 0.5 x10^3/uL (0.0-0.7); EOS % 2 % (0-3); HEMATOCRIT 35.1 % (39.0-53.0); LYMPH % 7 % (24-48); MEAN CORPUSCULAR HEMOGLOBIN 29 pg (25-35); MEAN CORPUSCULAR HGB CONC 31 g/dL (31-37); MEAN CORPUSCULAR VOLUME 92 fL (79-100); MONO # 0.5 x10^3/uL (0.0-1.1); MONO % 2 % (0-9); NEUT # 24.1 x10^3/uL (1.8-7.7); NEUT % 87 % (31-73); PLATELET COUNT 499 x10^3/uL (140-400); RED BLOOD COUNT 3.84 x10^6/uL (4.30-5.70); RED CELL DISTRIBUTION WIDTH 24.3 % (11.5-14.5); WHITE BLOOD COUNT 27.7 x10^3/uL (4.0-11.0)
[2020-09-03 20:15] LABS: CALCIUM 8.9 mg/dL (8.5-10.1); CREATININE 2.2 mg/dL (0.7-1.3); GFR 34.4; POTASSIUM 4.1 mmol/L (3.5-5.1)
--- NOTE | 2020-09-03 20:18 | RAD ---
Exam: Chest one view INDICATION: CHF TECHNIQUE: Frontal view of the chest Comparisons: 07/24/2020 FINDINGS: Pacer with leads terminating the right atrium and ventricle. Heart is mildly enlarged. Prominence of the pulmonary artery is stable. Interstitial airspace disease in lungs, mildly increased. Stable cystic lesion at the left lateral co stophrenic angle. IMPRESSION: Findings likely related to mild pulmonary edema Electronically signed by: Lorenza Baez MD (09/03/2020 8:15 PM) JAYY
[2020-09-03 20:20] LABS: ALBUMIN/GLOBULIN RATIO 0.9 (1.0-1.7); MAGNESIUM 2.4 mg/dL (1.8-2.4); PHOSPHORUS 4.1 mg/dL (2.6-4.7); TOTAL BILIRUBIN 2.4 mg/dL (0.2-1.0); TOTAL PROTEIN 6.4 g/dL (6.4-8.2)
[2020-09-03] MEDS ORDERED: MORPHINE SULFATE 2 MG/ML VIAL. IV PRN (21:00)
[2020-09-03] MEDS ORDERED: ONDANSETRON PF 4 MG/2 ML VIAL. IV PRN (21:00)
[2020-09-03] MEDS ORDERED: FUROSEMIDE 40 MG/4 ML VIAL. IVP ONE (21:00)
[2020-09-03] MEDS ORDERED: ACETAMINOPHEN 325 MG TABLET. PO PRN (21:00)
[2020-09-03] MEDS ORDERED: PIPERACILLIN/TAZOBACTAM 3.375 GM in IV NORMAL SALINE 50ML 50 ML IV ONE (21:00)
[2020-09-03 21:05] LABS: % BANDS 2 % (0-9); % BASOS 1 % (0-3); % EOS 2 % (0-5); % LYMPHS 5 % (24-48); % MONOS 2 % (0-10); % SEGS 88 % (35-66); NUCLEATED RBC 3
[2020-09-03 21:06] LABS: PLT ESTIMATE INCREASED (ADEQUATE); POIKILOCYTOSIS SLIGHT; POLYCHROMASIA MOD
[2020-09-03 21:07] LABS: MICROCYTOSIS SLIGHT; OVALOCYTES OCC; TEAR DROP CELLS OCC
[2020-09-03 22:00] VITALS: BP 118/49
[2020-09-03] MEDS ORDERED: PIP/TAZO PER PHARMACY MC PRN (22:15)
[2020-09-03] MEDS ORDERED: predniSONE 20 MG TABLET PO ONE (22:15)
--- NOTE | 2020-09-03 22:20 | PDOC1 ---
History and Physical Date of Admission Date of Admission DATE: 09/03/20 TIME: 22:14 Source Source: Chart review, Patient History of Present Illness History of Present Illness Mr. Rivero, is a 89 year old male admit for weakness and dyspnea. he complains of worsening over weeks, with a few days of noted LE edema is worse with cough in the morning that is productive of white sputum. he has cough at times, feels better since being seen in the ER. He has been complaint with meds, follows Dr. Santoyo for CHF. Patient states he has a history of heart failure been compliant with medications. Denies any fevers or chills. . Denies any vomiting or diarrhea. most recetn admit was for CHF exac Past Medical History Cardiovascular: AFIB, CAD, CHF, HTN, Hyperlipidemia Pulmonary: COPD, Other CENTRAL NERVOUS SYSTEM: Other GI: No pertinent hx Heme/Onc: No pertinent hx Hepatobiliary: No pertinent hx Psych: No pertinent hx Musculoskeletal: Osteoarthritis Rheumatologic: No pertinent hx Infectious disease: No pertinent hx Renal/: No pertinent hx Endocrine: Diabetes Past Surgical History Past Surgical History: Pacemaker, Cholecystectomy, Other Family History Family History: Heart Disease Social History Smoke: No ALCOHOL: none Drugs: None Current Problem List Problem List Problems Medical Problems: (1) CHF (congestive heart failure) Status: Acute Current Medications Current Medications Current Medications Furosemide (Lasix) 40 mg 1X ONCE IVP Last administered on 09/03/20at 21:07; Start 09/03/20 at 21:00; Stop 09/03/20 at 21:01; Status DC Piperacillin Sod/ Tazobactam Sod 3.375 gm/Sodium Chloride 50 ml @ 100 mls/hr 1X ONCE IV Last administered on 09/03/20at 21:08; Start 09/03/20 at 21:00; Stop 09/03/20 at 21:29; Status DC Ondansetron HCl (Zofran) 4 mg PRN Q8HRS PRN IV NAUSEA/VOMITING; Start 09/03/20 at 21:00; Stop 09/04/20 at 20:59 Morphine Sulfate (Morphine Sulfate) 2 mg PRN Q2HR PRN IV PAIN; Start 09/03/20 at 21:00; Stop 09/04/20 at 20:59 Acetaminophen (Tylenol) 650 mg PRN Q4HRS PRN PO FEVER > 100.3'F; Start 09/03/20 at 21:00; Stop 09/04/20 at 20:59 Ascorbic Acid (Vitamin C) 250 mg DAILY PO ; Start 09/04/20 at 09:00; Status UNV Aspirin (Aspirin Chewable) 81 mg BID PO ; Start 09/04/20 at 09:00; Status UNV Atorvastatin Calcium (Lipitor) 40 mg DAILY PO ; Start 09/04/20 at 09:00; Status UNV Bumetanide (Bumex) 1 mg BID PO ; Start 09/04/20 at 09:00; Status UNV Digoxin (Lanoxin) 125 mcg DAILY PO ; Start 09/04/20 at 09:00; Status UNV Docusate Sodium (Colace) 100 mg TID PO ; Start 09/04/20 at 09:00; Status UNV Acetaminophen/ Hydrocodone Bitart (Lortab 5/325) 1 tab PRN Q6HRS PRN PO PAIN; Start 09/03/20 at 22:15; Status UNV Non-Formulary Medication (Metoprolol Tartrate ) 100 mg DAILY PO ; Start 09/04/20 at 09:00; Status UNV Warfarin Sodium (Coumadin Per Pharmacy) 1 each PRN DAILY PRN [facility] SEE COMMENTS; Start 09/03/20 at 22:15; Status UNV Active Scripts Active [place] 5-325 Tablet (Acetaminophen/Hydrocodone Bitart) 1 Each Tablet 7.5 Mg PO PRN Q6HRS PRN 6 Days LAST DOSE GIVEN: Reported Bumetanide 1 Mg Tablet 1 Mg PO BID Colace (Docusate Sodium) 100 Mg Capsule 1 Cap PO TID Metamucil Powder (Psyllium Seed (with Sugar)) 575 Gm Powder 575 Gm PO DAILY Atorvastatin Calcium 40 Mg Tablet 1 Tab PO DAILY Metoprolol Tartrate 100 Mg Tablet 100 Mg PO DAILY Tamsulosin Hcl 0.4 Mg Cap.er.24h 0.4 Mg PO HS DAILY Vitamin C (Ascorbic Acid) 500 Mg Tablet 250 Mg PO DAILY Warfarin Sodium 5 Mg Tablet 1.5 Tab PO QWE Warfarin Sodium 5 Mg Tablet 1 Tab PO DAILY EXCEPT WED. Aspirin 81 Mg Tab.chew 81 Mg PO BID Lanoxin (Digoxin) 125 Mcg Tablet 125 Mcg PO DAILY Allergies Allergies: Coded Allergies: I S O L A T I O N *CONTACT* (Verified Allergy, Unknown, 10/15/18) VRE No Known Medication Allergies (Verified Allergy, Unknown, 10/15/18) ROS General: YES: Fatigue; No: Chills, Night Sweats, Malaise, Appetite, Other PSYCHOLOGICAL ROS: No: Anxiety, Behavioral Disorder, Concentration difficultie, Decreased libido, Depression, Disorientation, Hallucinations, Hostility, Irritablity, Memory difficulties, Mood Swings, Obsessive thoughts, Other Eyes: No Blurry vision, No Decreased vision, No Double vision, No Dry eyes, No Excessive tearing, No Eye Pain, No Itchy Eyes, No Loss of vision, No Leah tophobia, No Scotomata, No Uses contacts, No Uses glasses, No Other HEENT: No: Heacaches, Visual Changes, Hearing change, Nasal congestion, Nasal discharge, Oral lesions, Sinus pain, Sore Throat, Epistaxis, Sneezing, Snoring, Tinnitus, Vertigo, Vocal changes, Other Respiratory: YES: Cough, SOB with excertion; No: Hemoptysis, Orthopnea, Pleuritic Pain, Shortness of breath, Sputum Changes, Stridor, Tachypnea, Wheezing, Other Cardiovascular: yes Edema; No Chest Pain, No Palpitations, No Orthopnea, No Paroxysmal Noc. Dyspnea, No Lt Headedness, No Other Gastrointestinal: No Nausea, No Vomiting, No Abdominal Pain, No Diarrhea, No Constipation, No Melena, No Hematochezia, No Other Genitourinary: No Dysuria, No Frequency, No Incontinence, No Hematuria, No Retention, No Discharge, No Urgency, No Pain, No Flank Pain, No Other, No , No , No , No , No , No , No Musculoskeletal: Yes Muscular Weakness; No Gait Disturbance, No Joint Pain, No Joint Stiffness, No Joint Swelling, No Muscle Pain, No Pain In:, No Swelling In:, No Other Neurological: Yes Weakness; No Behavorial Changes, No Bowel/Bladder ControlChng, No Confusion, No Dizziness, No Gait Disturbance, No Speech Problems, No Other Skin: No Dry Skin, No Eczema, No Hair Changes, No Lumps, No Mole Changes, No Mottling, No Nail Changes, No Pruritus, No Rash, No Skin Lesion Changes, No Other, No Acne Physical Exam General: Alert, Oriented X3, Cooperative, mild distress HEENT: Atraumatic, EOMI, Mucous membr. moist/pink, Other (upper dentures) Lungs: Other (very limited volume breaths, no wheeze, distant sounds) Abdomen: Normal bowel sounds, Soft Extremities: No clubbing, Other (2+ edema, no breakdown) Skin: No rashes, No breakdown, No significant lesion Neuro: Normal speech, Normal tone, Sensation intact Psych/Mental Status: Mental status NL, Mood NL Vitals Vitals Vital Signs Date Time Temp Pulse Resp B/P (MAP) Pulse Ox O2 Delivery O2 Flow Rate FiO2 09/03/20 22:00 97.1 52 21 118/49 (72) 94 Room Air 97.1 Labs Labs Laboratory Tests Test 09/03/20 19:46 White Blood Count 27.7 x10^3/uL (4.0-11.0) Red Blood Count 3.84 x10^6/uL (4.30-5.70) Hemoglobin 11.0 g/dL (13.0-17.5) Hematocrit 35.1 % (39.0-53.0) Mean Corpuscular Volume 92 fL (79-100) Mean Corpuscular Hemoglobin 29 pg (25-35) Mean Corpuscular Hemoglobin Concent 31 g/dL (31-37) Red Cell Distribution Width 24.3 % (11.5-14.5) Platelet Count 499 x10^3/uL (140-400) Neutrophils (%) (Auto) 87 % (31-73) Lymphocytes (%) (Auto) 7 % (24-48) Monocytes (%) (Auto) 2 % (0-9) Eosinophils (%) (Auto) 2 % (0-3) Basophils (%) (Auto) 2 % (0-3) Neutrophils # (Auto) 24.1 x10^3/uL (1.8-7.7) Lymphocytes # (Auto) 2.0 x10^3/uL (1.0-4.8) Monocytes # (Auto) 0.5 x10^3/uL (0.0-1.1) Eosinophils # (Auto) 0.5 x10^3/uL (0.0-0.7) Basophils # (Auto) 0.6 x10^3/uL (0.0-0.2) Segmented Neutrophils % 88 % (35-66) Band Neutrophils % 2 % (0-9) Lymphocytes % 5 % (24-48) Monocytes % 2 % (0-10) Eosinophils % 2 % (0-5) Basophils % 1 % (0-3) Nucleated Red Blood Cells 3 Platelet Estimate Increased (ADEQUATE) Large Platelets Few Giant Platelets Few Polychromasia Mod Poikilocytosis Slight Microcytosis Slight Macrocytosis Mod Tear Drop Cells Occ Ovalocytes Occ Sodium Level 144 mmol/L (136-145) Potassium Level 4.1 mmol/L (3.5-5.1) Chloride Level 110 mmol/L (98-107) Carbon Dioxide Level 23 mmol/L (21-32) Anion Gap 11 (6-14) Blood Urea Nitrogen 60 mg/dL (8-26) Creatinine 2.2 mg/dL (0.7-1.3) Estimated GFR (Cockcroft-Gault) 34.4 BUN/Creatinine Ratio 27 (6-20) Glucose Level 88 mg/dL (70-99) Calcium Level 8.9 mg/dL (8.5-10.1) Phosphorus Level 4.1 mg/dL (2.6-4.7) Magnesium Level 2.4 mg/dL (1.8-2.4) Total Bilirubin 2.4 mg/dL (0.2-1.0) Aspartate Amino Transf (AST/SGOT) 64 U/L (15-37) Alanine Aminotransferase (ALT/SGPT) 12 U/L (16-63) Alkaline Phosphatase 147 U/L (46-116) Troponin I Quantitative < 0.017 ng/mL (0.000-0.055) XA-Gim-E-Type Natriuretic Peptide 37242 pg/mL (0-449) Total Protein 6.4 g/dL (6.4-8.2) Albumin 3.0 g/dL (3.4-5.0) Albumin/Globulin Ratio 0.9 (1.0-1.7) Thyroid Stimulating Hormone (TSH) 5.598 uIU/mL (0.358-3.74) Laboratory Tests Test 09/03/20 19:46 White Blood Count 27.7 x10^3/uL (4.0-11.0) Red Blood Count 3.84 x10^6/uL (4.30-5.70) Hemoglobin 11.0 g/dL (13.0-17.5) Hematocrit 35.1 % (39.0-53.0) Mean Corpuscular Volume 92 fL (79-100) Mean Corpuscular Hemoglobin 29 pg (25-35) Mean Corpuscular Hemoglobin Concent 31 g/dL (31-37) Red Cell Distribution Width 24.3 % (11.5-14.5) Platelet Count 499 x10^3/uL (140-400) Neutrophils (%) (Auto) 87 % (31-73) Lymphocytes (%) (Auto) 7 % (24-48) Monocytes (%) (Auto) 2 % (0-9) Eosinophils (%) (Auto) 2 % (0-3) Basophils (%) (Auto) 2 % (0-3) Neutrophils # (Auto) 24.1 x10^3/uL (1.8-7.7) Lymphocytes # (Auto) 2.0 x10^3/uL (1.0-4.8) Monocytes # (Auto) 0.5 x10^3/uL (0.0-1.1) Eosinophils # (Auto) 0.5 x10^3/uL (0.0-0.7) Basophils # (Auto) 0.6 x10^3/uL (0.0-0.2) Segmented Neutrophils % 88 % (35-66) Band Neutrophils % 2 % (0-9) Lymphocytes % 5 % (24-48) Monocytes % 2 % (0-10) Eosinophils % 2 % (0-5) Basophils % 1 % (0-3) Nucleated Red Blood Cells 3 Platelet Estimate Increased (ADEQUATE) Large Platelets Few Giant Platelets Few Polychromasia Mod Poikilocytosis Slight Microcytosis Slight Macrocytosis Mod Tear Drop Cells Occ Ovalocytes Occ Sodium Level 144 mmol/L (136-145) Potassium Level 4.1 mmol/L (3.5-5.1) Chloride Level 110 mmol/L (98-107) Carbon Dioxide Level 23 mmol/L (21-32) Anion Gap 11 (6-14) Blood Urea Nitrogen 60 mg/dL (8-26) Creatinine 2.2 mg/dL (0.7-1.3) Estimated GFR (Cockcroft-Gault) 34.4 BUN/Creatinine Ratio 27 (6-20) Glucose Level 88 mg/dL (70-99) Calcium Level 8.9 mg/dL (8.5-10.1) Phosphorus Level 4.1 mg/dL (2.6-4.7) Magnesium Level 2.4 mg/dL (1.8-2.4) Total Bilirubin 2.4 mg/dL (0.2-1.0) Aspartate Amino Transf (AST/SGOT) 64 U/L (15-37) Alanine Aminotransferase (ALT/SGPT) 12 U/L (16-63) Alkaline Phosphatase 147 U/L (46-116) Troponin I Quantitative < 0.017 ng/mL (0.000-0.055) KN-Zox-N-Type Natriuretic Peptide 55159 pg/mL (0-449) Total Protein 6.4 g/dL (6.4-8.2) Albumin 3.0 g/dL (3.4-5.0) Albumin/Globulin Ratio 0.9 (1.0-1.7) Thyroid Stimulating Hormone (TSH) 5.598 uIU/mL (0.358-3.74) VTE Prophylaxis Ordered VTE Prophylaxis Devices: Yes VTE Pharmacological Prophylaxi: Yes Assessment/Plan Assessment/Plan acute on chronic combined CHF exacerbation, consult CV, BUN, Cr elevation, pt already appears dry COPD, poss exacerbation, started on zosyn, will do nebs, consult pulm, give prednisone, weakness, debility, fall risk, uses cane, consult PT and OT atrial fib, on coumadin, CKD 3 Justifications for Admission Other Justification RADHA CALERO MD September 03, 2020 22:19
[2020-09-04 03:35] VITALS: BP 110/57
[2020-09-04 05:33] LABS: BASO # 1.5 x10^3/uL (0.0-0.2); BASO % 6 % (0-3); EOS # 0.4 x10^3/uL (0.0-0.7); EOS % 1 % (0-3); HEMATOCRIT 34.7 % (39.0-53.0); HEMOGLOBIN 10.3 g/dL (13.0-17.5); LYMPH # 1.7 x10^3/uL (1.0-4.8); LYMPH % 6 % (24-48); MEAN CORPUSCULAR HEMOGLOBIN 28 pg (25-35); MEAN CORPUSCULAR HGB CONC 30 g/dL (31-37); MEAN CORPUSCULAR VOLUME 93 fL (79-100); MONO # 0.4 x10^3/uL (0.0-1.1); MONO % 1 % (0-9); NEUT # 23.3 x10^3/uL (1.8-7.7); NEUT % 85 % (31-73); PLATELET COUNT 454 x10^3/uL (140-400); RED BLOOD COUNT 3.74 x10^6/uL (4.30-5.70); RED CELL DISTRIBUTION WIDTH 25.4 % (11.5-14.5); WHITE BLOOD COUNT 27.3 x10^3/uL (4.0-11.0)
[2020-09-04] MEDS: PIPERACILLIN/TAZOBACTAM 3.375 GM in IV NORMAL SALINE 50ML 50 ML IV SCH ×4 (05:38→23:04)
[2020-09-04 05:57] LABS: PROTHROMBIN TIME PATIENT 32.7 SEC (11.7-14.0)
[2020-09-04 06:05] LABS: ALBUMIN 2.7 g/dL (3.4-5.0); CALCIUM 8.6 mg/dL (8.5-10.1); CREATININE 2.1 mg/dL (0.7-1.3); GFR 36.2; POTASSIUM 4.7 mmol/L (3.5-5.1); TOTAL BILIRUBIN 2.2 mg/dL (0.2-1.0); TOTAL PROTEIN 5.5 g/dL (6.4-8.2)
[2020-09-04 06:18] LABS: DIG 2.2 ng/mL (0.9-2.0)
[2020-09-04 07:00] VITALS: BP 118/55
[2020-09-04] MEDS: IPRATRPIUM/ALBUTEROL 0.5/2.5MG 3 ML NEBU. NEB SCH ×4 (07:31→20:57)
--- NOTE | 2020-09-04 07:56 | PDOC ---
[employer] PROGRESS NOTE Date of Service DOS: DATE: 09/04/20 TIME: 07:49 Chief Complaint Chief Complaint A/P: Acute on chronic combined systolic and diastolic heart failure. We will diurese with intravenous Bumex. 2D echo in September 2019 showed LVEF 40%. Coronary artery disease: Patient has known chronic total occlusion of LAD with collaterals, presently stable and chest pain-free. Lexiscan nuclear stress test in March 2020 showed large inferior infarct without any significant ischemia. Continue current secondary prevention measures. Sick sinus syndrome s/p permanent pacemaker implantation with more recent generator change. Recent device check showed normal function. He denied any syncope or near syncope. Permanent atrial fibrillation: Telemetry showed demand pacing. Patient on warfarin for stroke prophylaxis. Check PT/INR. Hypertension - Controlled. Will back off on his BB. He is actually on 100mg metoprolol tartrate Hyperlipidemia - Continue statin Diabetes mellitus type 2 - diet controlled, A1c previously 5.8 Protein calorie malnutrition - severe given his edema and albumin. Brain Wave Technician to see Leukocytosis - Will obtain procalcitonin to help guide antibiotic therapy, follo w up on cultures Elevated digoxin level - will hold digoxin FEN - Cardiac ADA diet PPX - warfarin CODE - FULL Dispo - inpatient CVC for CHF exacerbation History of Present Illness History of Present Illness Mr Rivero is an 89yo M w/ PMHx DM2, HLD, HTN, afib, SSS s/p PPM, CAD, chronic systolic CHF who presented to ED c/o for weakness and dyspnea. Also complains of dyspnea worsening over weeks, with a few days of noted LE edema is worse with cough in the morning that is productive of white sputum. he has cough at times, He denied any chest pain, palpitations or syncope. Given 1 dose iv lasix in ED 40mg, < 500 uop after, still feeling short of breath. He follows with Dr. Santoyo and has been recently changed to Bumex last month. Chest radiograph with interstitial edema. Labs with WBC 27.3, Hb 10.3, platelets 454, NA 145, K4.7, BUN 58, CR 2.1, INR 3.2 TSH 5.5, digoxin level 2.2, albumin 2.7, bilirubin 2.2, AST 56 ALT 12 alkaline phosphatase 138 NT proBNP 31,348 Admitted for further treatment. Afebrile. WBC still high. Reasonably good urine output. A little confused Vitals/I&O Vitals/I&O: Vital Signs Date Time Temp Pulse Resp B/P (MAP) Pulse Ox O2 Delivery O2 Flow Rate FiO2 09/04/20 07:32 100 Room Air 09/04/20 03:35 98.9 49 21 110/57 (74) 98.9 I & O 09/03/20 09/03/20 09/04/20 15:00 23:00 07:00 Intake Total 390 ml Output Total 400 ml Balance -10 ml Physical Exam General: Alert, Cooperative, mild distress Lungs: Crackles Abdomen: Normal bowel sounds, Soft Extremities: No clubbing, Other (2+ edema, no breakdown) Skin: No rashes, No breakdown, No significant lesion Labs Labs: Laboratory Tests Test 09/03/20 19:46 09/04/20 05:00 White Blood Count 27.7 x10^3/uL (4.0-11.0) 27.3 x10^3/uL (4.0-11.0) Red Blood Count 3.84 x10^6/uL (4.30-5.70) 3.74 x10^6/uL (4.30-5.70) Hemoglobin 11.0 g/dL (13.0-17.5) 10.3 g/dL (13.0-17.5) Hematocrit 35.1 % (39.0-53.0) 34.7 % (39.0-53.0) Mean Corpuscular Volume 92 fL (79-100) 93 fL (79-100) Mean Corpuscular Hemoglobin 29 pg (25-35) 28 pg (25-35) Mean Corpuscular Hemoglobin Concent 31 g/dL (31-37) 30 g/dL (31-37) Red Cell Distribution Width 24.3 % (11.5-14.5) 25.4 % (11.5-14.5) Platelet Count 499 x10^3/uL (140-400) 454 x10^3/uL (140-400) Neutrophils (%) (Auto) 87 % (31-73) 85 % (31-73) Lymphocytes (%) (Auto) 7 % (24-48) 6 % (24-48) Monocytes (%) (Auto) 2 % (0-9) 1 % (0-9) Eosinophils (%) (Auto) 2 % (0-3) 1 % (0-3) Basophils (%) (Auto) 2 % (0-3) 6 % (0-3) Neutrophils # (Auto) 24.1 x10^3/uL (1.8-7.7) 23.3 x10^3/uL (1.8-7.7) Lymphocytes # (Auto) 2.0 x10^3/uL (1.0-4.8) 1.7 x10^3/uL (1.0-4.8) Monocytes # (Auto) 0.5 x10^3/uL (0.0-1.1) 0.4 x10^3/uL (0.0-1.1) Eosinophils # (Auto) 0.5 x10^3/uL (0.0-0.7) 0.4 x10^3/uL (0.0-0.7) Basophils # (Auto) 0.6 x10^3/uL (0.0-0.2) 1.5 x10^3/uL (0.0-0.2) Segmented Neutrophils % 88 % (35-66) Band Neutrophils % 2 % (0-9) Lymphocytes % 5 % (24-48) Monocytes % 2 % (0-10) Eosinophils % 2 % (0-5) Basophils % 1 % (0-3) Nucleated Red Blood Cells 3 Platelet Estimate Increased (ADEQUATE) Large Platelets Few Giant Platelets Few Polychromasia Mod Poikilocytosis Slight Microcytosis Slight Macrocytosis Mod Tear Drop Cells Occ Ovalocytes Occ Sodium Level 144 mmol/L (136-145) 145 mmol/L (136-145) Potassium Level 4.1 mmol/L (3.5-5.1) 4.7 mmol/L (3.5-5.1) Chloride Level 110 mmol/L (98-107) 111 mmol/L (98-107) Carbon Dioxide Level 23 mmol/L (21-32) 23 mmol/L (21-32) Anion Gap 11 (6-14) 11 (6-14) Blood Urea Nitrogen 60 mg/dL (8-26) 58 mg/dL (8-26) Creatinine 2.2 mg/dL (0.7-1.3) 2.1 mg/dL (0.7-1.3) Estimated GFR (Cockcroft-Gault) 34.4 36.2 BUN/Creatinine Ratio 27 (6-20) 28 (6-20) Glucose Level 88 mg/dL (70-99) 108 mg/dL (70-99) Calcium Level 8.9 mg/dL (8.5-10.1) 8.6 mg/dL (8.5-10.1) Phosphorus Level 4.1 mg/dL (2.6-4.7) Magnesium Level 2.4 mg/dL (1.8-2.4) Total Bilirubin 2.4 mg/dL (0.2-1.0) 2.2 mg/dL (0.2-1.0) Aspartate Amino Transf (AST/SGOT) 64 U/L (15-37) 56 U/L (15-37) Alanine Aminotransferase (ALT/SGPT) 12 U/L (16-63) 12 U/L (16-63) Alkaline Phosphatase 147 U/L (46-116) 138 U/L (46-116) Troponin I Quantitative < 0.017 ng/mL (0.000-0.055) < 0.017 ng/mL (0.000-0.055) YN-Puj-N-Type Natriuretic Peptide 25042 pg/mL (0-449) Total Protein 6.4 g/dL (6.4-8.2) 5.5 g/dL (6.4-8.2) Albumin 3.0 g/dL (3.4-5.0) 2.7 g/dL (3.4-5.0) Albumin/Globulin Ratio 0.9 (1.0-1.7) 1.0 (1.0-1.7) Thyroid Stimulating Hormone (TSH) 5.598 uIU/mL (0.358-3.74) Prothrombin Time 32.7 SEC (11.7-14.0) Prothromb Time International Ratio 3.2 (0.8-1.1) Digoxin Level 2.2 ng/mL (0.9-2.0) Digoxin Last Dose Date 09/03/20 Digoxin Last Dose Time 0900 Assessment and Plan Assessmemt and Plan Problems Medical Problems: (1) CHF (congestive heart failure) Status: Acute Comment Review of Relevant I have reviewed the following items tiffany (where applicable) has been applied. Medications: Current Medications Medications (Trade) Dose Ordered Sig/Rakesh Route PRN Reason Start Time Stop Time Status Last Admin Dose Admin Furosemide (Lasix) 40 mg 1X ONCE IVP 09/03/20 21:00 09/03/20 21:01 DC 09/03/20 21:07 Piperacillin Sod/ Tazobactam Sod 3.375 gm/Sodium Chloride 50 ml @ 100 mls/hr 1X ONCE IV 09/03/20 21:00 09/03/20 21:29 DC 09/03/20 21:08 Albuterol/ Ipratropium (Duoneb) 3 ml RTQID NEB 09/04/20 08:00 09/04/20 07:31 Prednisone (Prednisone) 40 mg 1X ONCE PO 09/03/20 22:15 09/03/20 22:21 DC 09/03/20 22:41 Piperacillin Sod/ Tazobactam Sod 3.375 gm/Sodium Chloride 50 ml @ 100 mls/hr Q6HRS IV 09/04/20 06:00 09/04/20 05:38 Justifications for Admission Other Justification RANDALL CLARK MD September 04, 2020 07:56
[2020-09-04] MEDS: INSULIN LISPRO 300 UNITS/3 ML VIAL. SQ SCH ×3 (08:00→17:00)
[2020-09-04] MEDS: ATORVASTATIN CALCIUM 40 MG TABLET. PO SCH (08:38)
[2020-09-04] MEDS: ASPIRIN CHEWABLE 81 MG TABLET. PO SCH ×2 (08:38→21:16)
[2020-09-04] MEDS: ASCORBIC ACID 500 MG TABLET PO SCH (08:38)
[2020-09-04] MEDS: DOCUSATE SODIUM 100 MG CAPSULE. PO SCH ×3 (08:38→21:16)
[2020-09-04] MEDS: BUMETANIDE 2.5 MG/10 ML VIAL. IV SCH ×2 (08:39→15:23)
[2020-09-04] MEDS ORDERED: BUMETANIDE 1 MG TABLET. PO SCH (09:00)
[2020-09-04] MEDS ORDERED: METOPROLOL TART IMMED RELEASE 50 MG TABLET. PO SCH (09:00)
[2020-09-04] MEDS ORDERED: DIGOXIN 125 MCG TABLET. PO SCH (09:00)
--- NOTE | 2020-09-04 09:47 | NUR ---
Pharmacy Warfarin Dosing Note S:Pharmacy consulted to assist with anticoagulation therapy O:MAMTA MACIAS is a 89 year old M with Atrial Fibrillation LABS: Last INR: 3.2 Last HGB: 10.3 Last HCT: 34.7 Last PLT: 454 Previous Regimen: 5 MG DAILY EXCEPT 7.5 MG ON WEDNESDAYS Drug Interaction Changes: New Interacting Drug Ongoing Drug Interactions: ZOSYN A:INR of 3.2 is above desired range. Target range for this patient is: 2 - 3 P: HOLD today's warfarin dose Bridge Therapy: None Next INR due 09/05/20 Pharmacy anticoagulation service will continue to follow. PARTHA DIAS Ramiro, 09/04/20 [id number]
--- NOTE | 2020-09-04 09:59 | CONS ---
DATE OF CONSULTATION: 09/04/2020 REASON FOR CONSULTATION: I was asked to see this 89-year-old gentleman for COPD. HISTORY OF PRESENT ILLNESS: The patient is a lifelong nonsmoker and does not have COPD. He does have sleep apnea, but does not use his CPAP. Simply, he does not want to, it is hard to tolerate. He was admitted with increased shortness of breath and lower extremity edema. He does have cough with clear sputum production. He denies chest pain. He denies fever or chills. PAST MEDICAL HISTORY: Coronary artery disease, atrial fibrillation, hypertension, hyperlipidemia, obstructive sleep apnea-hypopnea syndrome. PAST SURGICAL HISTORY: Pacemaker, cholecystectomy. SOCIAL HISTORY: He is a lifelong nonsmoker. FAMILY HISTORY: Heart disease. ALLERGIES: No known drug allergies. MEDICATIONS: Currently, he is on Coumadin, Bumex, aspirin, vitamin C, DuoNeb, Zosyn. REVIEW OF SYSTEMS: As mentioned as above, other systems otherwise negative. PHYSICAL EXAMINATION: GENERAL: This is an elderly gentleman. His O2 saturation on room air is 98%, respiratory rate 20, heart rate 52. VITAL SIGNS: Blood pressure 110/57, temperature 98.9. HEENT: Normocephalic, atraumatic. Pupils equal, round, reactive to light. Nose is clear. Throat: There is shallow oropharynx. NECK: Positive JVD. No lymphadenopathy. CARDIOVASCULAR: Regular rate and rhythm. Positive murmur. LUNGS: There are bibasilar crackles, dullness at the bases. ABDOMEN: Soft. Bowel sounds are good. There is no mass. EXTREMITIES: There is 3+ edema. SKIN: Chronic changes. NEUROLOGIC: Alert and oriented. LABORATORY DATA: I reviewed the following lab data: WBC 27.3, hemoglobin 10.3, platelets 454. Sodium 145, potassium 4.7, chloride 111, CO2 of 23, BUN 58, creatinine 2.1. BNP 31,348. Troponin less than 0.01. AST 56, ALT 12. Chest x-ray shows cardiomegaly, increased vascular marking. CT of the chest: No suspicious lung nodules or masses. Atelectasis, pulmonary artery enlargement, cardiomegaly. IMPRESSION: 1. Dyspnea secondary to acute systolic and diastolic congestive heart failure, rule out acute bronchitis. 2. Abnormal chest x-ray. 3. 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 4. Cardiomyopathy. 5. Secondary pulmonary hypertension. 6. Obstructive sleep apnea-hypopnea syndrome, CPAP noncompliant. 7. Paroxysmal atrial fibrillation, on Coumadin. 8. Acute kidney injury/chronic kidney disease. 9. Secondary pulmonary hypertension due to systolic and diastolic congestive heart failure, untreated obstructive sleep apnea-hypopnea syndrome. FINAL RECOMMENDATIONS: 1. Titrate FiO2 to keep O2 saturation 92%. 2. Agree with Cardiology consultation. Continue Bumex. Monitor potassium and creatinine. 3. I had a long discussion with him regarding obstructive sleep apnea-hypopnea syndrome, the importance of treatment. If untreated, increased cardiovascular and VP MEDICAL morbidity and mortality. He understood, but does not want to use CPAP. He understands the risks of not treating obstructive sleep apnea-hypopnea syndrome. 4. Continue Coumadin. Keep INR between 2 and 3. 5. Continue antibiotic. 6. Monitor creatinine. Nephrology is consulted. 7. The findings and recommendations were discussed with the patient and RN. Thank you very much for allowing me to participate in care of this very nice gentleman. MAICO DR: Neelam TID: [id number]
[2020-09-04 11:00] VITALS: BP 109/48
--- NOTE | 2020-09-04 11:33 | PDOC2 ---
CONSULT Date of Consult Date of Consult DATE: 09/04/20 TIME: 11:28 Reason for Consult Reason for Consult: DION Identification/Chief Complaint Chief Complaint None currently Source Source: Chart review History of Present Illness Reason for Visit: Mr. Rivero, is a 89 AAM admitted for weakness and dyspnea. worsening over weeks, with a few days of noted LE edema is worse , c/o cough in the morning that is productive of white sputum He has been compliant with meds, follows Dr. Santoyo for CHF. Patient states he has a history of heart failure Denies any fevers or chills. . Denies any vomiting or diarrhea. Denies any CP . No Urinary complaints - no dysuria, hematuria Past Medical History Cardiovascular: AFIB, CAD, CHF, HTN, Hyperlipidemia Pulmonary: COPD, Other CENTRAL NERVOUS SYSTEM: Other GI: No pertinent hx Heme/Onc: No pertinent hx Hepatobiliary: No pertinent hx Psych: No pertinent hx Musculoskeletal: Osteoarthritis Rheumatologic: No pertinent hx Infectious disease: No pertinent hx Renal/: No pertinent hx Endocrine: Diabetes Past Surgical History Past Surgical History: Pacemaker, Cholecystectomy, Other Family History Family History: Heart Disease Social History No ALCOHOL: none Drugs: None Lives: with Family Current Problem List Problem List Problems Medical Problems: (1) CHF (congestive heart failure) Status: Acute Current Medications Current Medications Current Medications Furosemide (Lasix) 40 mg 1X ONCE IVP Last administered on 09/03/20at 21:07; Start 09/03/20 at 21:00; Stop 09/03/20 at 21:01; Status DC Piperacillin Sod/ Tazobactam Sod 3.375 gm/Sodium Chloride 50 ml @ 100 mls/hr 1X ONCE IV Last administered on 09/03/20at 21:08; Start 09/03/20 at 21:00; Stop 09/03/20 at 21:29; Status DC Ondansetron HCl (Zofran) 4 mg PRN Q8HRS PRN IV NAUSEA/VOMITING; Start 09/03/20 at 21:00; Stop 09/04/20 at 20:59 Morphine Sulfate (Morphine Sulfate) 2 mg PRN Q2HR PRN IV PAIN; Start 09/03/20 at 21:00; Stop 09/04/20 at 20:59 Acetaminophen (Tylenol) 650 mg PRN Q4HRS PRN PO FEVER > 100.3'F; Start 09/03/20 at 21:00; Stop 09/04/20 at 20:59 Ascorbic Acid (Vitamin C) 250 mg DAILY PO Last administered on 09/04/20at 08:38; Start 09/04/20 at 09:00 Aspirin (Aspirin Chewable) 81 mg BID PO Last administered on 09/04/20at 08:38; Start 09/04/20 at 09:00 Atorvastatin Calcium (Lipitor) 40 mg DAILY PO Last administered on 09/04/20at 08:38; Start 09/04/20 at 09:00 Bumetanide (Bumex) 1 mg BID92 PO ; Start 09/04/20 at 09:00; Stop 09/04/20 at 07:53; Status DC Digoxin (Lanoxin) 125 mcg DAILY PO ; Start 09/04/20 at 09:00; Stop 09/04/20 at 07:47; Status DC Docusate Sodium (Colace) 100 mg TID PO Last administered on 09/04/20at 08:38; Start 09/04/20 at 09:00 Acetaminophen/ Hydrocodone Bitart (Lortab 5/325) 1 tab PRN Q6HRS PRN PO PAIN; Start 09/03/20 at 22:15 Metoprolol Tartrate (Lopressor) 100 mg DAILY PO ; Start 09/04/20 at 09:00; Stop 09/04/20 at 07:29; Status DC Warfarin Sodium (Coumadin Per Pharmacy) 1 each PRN DAILY PRN MC SEE COMMENTS Last administered on 09/04/20at 09:47; Start 09/03/20 at 22:15 Piperacillin Sod/ Tazobactam Sod (Zosyn Per Pharmacy) 1 each PRN DAILY PRN MC SEE COMMENTS; Start 09/03/20 at 22:15 Albuterol/ Ipratropium (Duoneb) 3 ml RTQID NEB Last administered on 09/04/20at 07:31; Start 09/04/20 at 08:00 Prednisone (Prednisone) 40 mg 1X ONCE PO Last administered on 09/03/20at 22:41; Start 09/03/20 at 22:15; Stop 09/03/20 at 22:21; Status DC Insulin Human Lispro (HumaLOG) 0-7 UNITS TIDWMEALS SQ ; Start 09/04/20 at 08:00 Dextrose (Dextrose 50%-Water Syringe) 12.5 gm PRN Q15MIN PRN IV SEE COMMENTS; Start 09/03/20 at 22:15 Piperacillin Sod/ Tazobactam Sod 3.375 gm/Sodium Chloride 50 ml @ 100 mls/hr Q6HRS IV Last administered on 09/04/20at 05:38; Start 09/04/20 at 06:00 Warfarin Sodium (Coumadin - No Dose Today) 1 each 1X WARF ONCE MC ; Start 08/08 12/28 at 16:00; Stop 09/04/20 at 16:01 Bumetanide (Bumex) 2.5 mg BID92 IV Last administered on 09/04/20at 08:39; Start 09/04/20 at 09:00 Lactobacillus Rhamnosus (Culturelle) 1 cap BID PO ; Start 09/04/20 at 21:00 Active Scripts Active [place] 5-325 Tablet (Acetaminophen/Hydrocodone Bitart) 1 Each Tablet 7.5 Mg PO PRN Q6HRS PRN 6 Days LAST DOSE GIVEN: Reported Bumetanide 1 Mg Tablet 1 Mg PO BID Colace (Docusate Sodium) 100 Mg Capsule 1 Cap PO TID Metamucil Powder (Psyllium Seed (with Sugar)) 575 Gm Powder 575 Gm PO DAILY Atorvastatin Calcium 40 Mg Tablet 1 Tab PO DAILY Metoprolol Tartrate 100 Mg Tablet 100 Mg PO DAILY Tamsulosin Hcl 0.4 Mg Cap.er.24h 0.4 Mg PO HS DAILY Vitamin C (Ascorbic Acid) 500 Mg Tablet 250 Mg PO DAILY Warfarin Sodium 5 Mg Tablet 1.5 Tab PO QWE Warfarin Sodium 5 Mg Tablet 1 Tab PO DAILY EXCEPT SUN. Aspirin 81 Mg Tab.chew 81 Mg PO BID Lanoxin (Digoxin) 125 Mcg Tablet 125 Mcg PO DAILY Allergies Allergies: Coded Allergies: I S O L A T I O N *CONTACT* (Verified Allergy, Unknown, 10/15/18) VRE No Known Medication Allergies (Verified Allergy, Unknown, 10/15/18) ROS Review of System As per HPI, rest of the ros is negative Physical Exam Physical Exam Gen NAD , sitting up in chair HEEN OM moist, hard of hearing Neck Supple Lungs decreased bases, Non labored CV S1`s2 Abd Soft, NT Neuro grossly Normal Skin No rash No CVA OR SP tenderness, No gaytan Ext Vital Signs Vital Signs Date Time Temp Pulse Resp B/P (MAP) Pulse Ox O2 Delivery O2 Flow Rate FiO2 09/04/20 07:45 Room Air 09/04/20 07:32 100 09/04/20 07:00 98.4 54 16 118/55 (76) 98.4 Assessment & Plan DION - suspect Cardiorenal , Cr elevated in July - admitted for CHF, prior labs in [facility] records with normal baseline Cr . Admitted with Cr of 2.1 , stable, monitor, supportive care, Strict I/O, Avoid nephrotoxins. Diuresis per cardiology Acute on chronic systolic heart failure- Symptoms improved post diuresis overnight. Echocardiogram 2020 ejection fraction of 40%. Exacerbation of COPD. Atrial fibrillation. History of coronary artery disease. Diabetes mellitus Hypertension; controlled Labs Labs Laboratory Tests Test 09/03/20 19:46 09/04/20 05:00 09/04/20 08:41 White Blood Count 27.7 x10^3/uL (4.0-11.0) 27.3 x10^3/uL (4.0-11.0) Red Blood Count 3.84 x10^6/uL (4.30-5.70) 3.74 x10^6/uL (4.30-5.70) Hemoglobin 11.0 g/dL (13.0-17.5) 10.3 g/dL (13.0-17.5) Hematocrit 35.1 % (39.0-53.0) 34.7 % (39.0-53.0) Mean Corpuscular Volume 92 fL (79-100) 93 fL (79-100) Mean Corpuscular Hemoglobin 29 pg (25-35) 28 pg (25-35) Mean Corpuscular Hemoglobin Concent 31 g/dL (31-37) 30 g/dL (31-37) Red Cell Distribution Width 24.3 % (11.5-14.5) 25.4 % (11.5-14.5) Platelet Count 499 x10^3/uL (140-400) 454 x10^3/uL (140-400) Neutrophils (%) (Auto) 87 % (31-73) 85 % (31-73) Lymphocytes (%) (Auto) 7 % (24-48) 6 % (24-48) Monocytes (%) (Auto) 2 % (0-9) 1 % (0-9) Eosinophils (%) (Auto) 2 % (0-3) 1 % (0-3) Basophils (%) (Auto) 2 % (0-3) 6 % (0-3) Neutrophils # (Auto) 24.1 x10^3/uL (1.8-7.7) 23.3 x10^3/uL (1.8-7.7) Lymphocytes # (Auto) 2.0 x10^3/uL (1.0-4.8) 1.7 x10^3/uL (1.0-4.8) Monocytes # (Auto) 0.5 x10^3/uL (0.0-1.1) 0.4 x10^3/uL (0.0-1.1) Eosinophils # (Auto) 0.5 x10^3/uL (0.0-0.7) 0.4 x10^3/uL (0.0-0.7) Basophils # (Auto) 0.6 x10^3/uL (0.0-0.2) 1.5 x10^3/uL (0.0-0.2) Segmented Neutrophils % 88 % (35-66) Band Neutrophils % 2 % (0-9) Lymphocytes % 5 % (24-48) Monocytes % 2 % (0-10) Eosinophils % 2 % (0-5) Basophils % 1 % (0-3) Nucleated Red Blood Cells 3 Platelet Estimate Increased (ADEQUATE) Large Platelets Few Giant Platelets Few Polychromasia Mod Poikilocytosis Slight Microcytosis Slight Macrocytosis Mod Tear Drop Cells Occ Ovalocytes Occ Sodium Level 144 mmol/L (136-145) 145 mmol/L (136-145) Potassium Level 4.1 mmol/L (3.5-5.1) 4.7 mmol/L (3.5-5.1) Chloride Level 110 mmol/L (98-107) 111 mmol/L (98-107) Carbon Dioxide Level 23 mmol/L (21-32) 23 mmol/L (21-32) Anion Gap 11 (6-14) 11 (6-14) Blood Urea Nitrogen 60 mg/dL (8-26) 58 mg/dL (8-26) Creatinine 2.2 mg/dL (0.7-1.3) 2.1 mg/dL (0.7-1.3) Estimated GFR (Cockcroft-Gault) 34.4 36.2 BUN/Creatinine Ratio 27 (6-20) 28 (6-20) Glucose Level 88 mg/dL (70-99) 108 mg/dL (70-99) Calcium Level 8.9 mg/dL (8.5-10.1) 8.6 mg/dL (8.5-10.1) Phosphorus Level 4.1 mg/dL (2.6-4.7) Magnesium Level 2.4 mg/dL (1.8-2.4) Total Bilirubin 2.4 mg/dL (0.2-1.0) 2.2 mg/dL (0.2-1.0) Aspartate Amino Transf (AST/SGOT) 64 U/L (15-37) 56 U/L (15-37) Alanine Aminotransferase (ALT/SGPT) 12 U/L (16-63) 12 U/L (16-63) Alkaline Phosphatase 147 U/L (46-116) 138 U/L (46-116) Troponin I Quantitative < 0.017 ng/mL (0.000-0.055) < 0.017 ng/mL (0.000-0.055) YY-Hib-F-Type Natriuretic Peptide 62485 pg/mL (0-449) Total Protein 6.4 g/dL (6.4-8.2) 5.5 g/dL (6.4-8.2) Albumin 3.0 g/dL (3.4-5.0) 2.7 g/dL (3.4-5.0) Albumin/Globulin Ratio 0.9 (1.0-1.7) 1.0 (1.0-1.7) Thyroid Stimulating Hormone (TSH) 5.598 uIU/mL (0.358-3.74) Prothrombin Time 32.7 SEC (11.7-14.0) Prothromb Time International Ratio 3.2 (0.8-1.1) Procalcitonin 0.63 ng/mL (0.00-0.10) Digoxin Level 2.2 ng/mL (0.9-2.0) Digoxin Last Dose Date 09/03/20 Digoxin Last Dose Time 0900 Glucose (Fingerstick) 130 mg/dL (70-99) Laboratory Tests Test 09/03/20 19:46 09/04/20 05:00 09/04/20 08:41 White Blood Count 27.7 x10^3/uL (4.0-11.0) 27.3 x10^3/uL (4.0-11.0) Red Blood Count 3.84 x10^6/uL (4.30-5.70) 3.74 x10^6/uL (4.30-5.70) Hemoglobin 11.0 g/dL (13.0-17.5) 10.3 g/dL (13.0-17.5) Hematocrit 35.1 % (39.0-53.0) 34.7 % (39.0-53.0) Mean Corpuscular Volume 92 fL (79-100) 93 fL (79-100) Mean Corpuscular Hemoglobin 29 pg (25-35) 28 pg (25-35) Mean Corpuscular Hemoglobin Concent 31 g/dL (31-37) 30 g/dL (31-37) Red Cell Distribution Width 24.3 % (11.5-14.5) 25.4 % (11.5-14.5) Platelet Count 499 x10^3/uL (140-400) 454 x10^3/uL (140-400) Neutrophils (%) (Auto) 87 % (31-73) 85 % (31-73) Lymphocytes (%) (Auto) 7 % (24-48) 6 % (24-48) Monocytes (%) (Auto) 2 % (0-9) 1 % (0-9) Eosinophils (%) (Auto) 2 % (0-3) 1 % (0-3) Basophils (%) (Auto) 2 % (0-3) 6 % (0-3) Neutrophils # (Auto) 24.1 x10^3/uL (1.8-7.7) 23.3 x10^3/uL (1.8-7.7) Lymphocytes # (Auto) 2.0 x10^3/uL (1.0-4.8) 1.7 x10^3/uL (1.0-4.8) Monocytes # (Auto) 0.5 x10^3/uL (0.0-1.1) 0.4 x10^3/uL (0.0-1.1) Eosinophils # (Auto) 0.5 x10^3/uL (0.0-0.7) 0.4 x10^3/uL (0.0-0.7) Basophils # (Auto) 0.6 x10^3/uL (0.0-0.2) 1.5 x10^3/uL (0.0-0.2) Segmented Neutrophils % 88 % (35-66) Band Neutrophils % 2 % (0-9) Lymphocytes % 5 % (24-48) Monocytes % 2 % (0-10) Eosinophils % 2 % (0-5) Basophils % 1 % (0-3) Nucleated Red Blood Cells 3 Platelet Estimate Increased (ADEQUATE) Large Platelets Few Giant Platelets Few Polychromasia Mod Poikilocytosis Slight Microcytosis Slight Macrocytosis Mod Tear Drop Cells Occ Ovalocytes Occ Sodium Level 144 mmol/L (136-145) 145 mmol/L (136-145) Potassium Level 4.1 mmol/L (3.5-5.1) 4.7 mmol/L (3.5-5.1) Chloride Level 110 mmol/L (98-107) 111 mmol/L (98-107) Carbon Dioxide Level 23 mmol/L (21-32) 23 mmol/L (21-32) Anion Gap 11 (6-14) 11 (6-14) Blood Urea Nitrogen 60 mg/dL (8-26) 58 mg/dL (8-26) Creatinine 2.2 mg/dL (0.7-1.3) 2.1 mg/dL (0.7-1.3) Estimated GFR (Cockcroft-Gault) 34.4 36.2 BUN/Creatinine Ratio 27 (6-20) 28 (6-20) Glucose Level 88 mg/dL (70-99) 108 mg/dL (70-99) Calcium Level 8.9 mg/dL (8.5-10.1) 8.6 mg/dL (8.5-10.1) Phosphorus Level 4.1 mg/dL (2.6-4.7) Magnesium Level 2.4 mg/dL (1.8-2.4) Total Bilirubin 2.4 mg/dL (0.2-1.0) 2.2 mg/dL (0.2-1.0) Aspartate Amino Transf (AST/SGOT) 64 U/L (15-37) 56 U/L (15-37) Alanine Aminotransferase (ALT/SGPT) 12 U/L (16-63) 12 U/L (16-63) Alkaline Phosphatase 147 U/L (46-116) 138 U/L (46-116) Troponin I Quantitative < 0.017 ng/mL (0.000-0.055) < 0.017 ng/mL (0.000-0.055) SC-Unu-Y-Type Natriuretic Peptide 99164 pg/mL (0-449) Total Protein 6.4 g/dL (6.4-8.2) 5.5 g/dL (6.4-8.2) Albumin 3.0 g/dL (3.4-5.0) 2.7 g/dL (3.4-5.0) Albumin/Globulin Ratio 0.9 (1.0-1.7) 1.0 (1.0-1.7) Thyroid Stimulating Hormone (TSH) 5.598 uIU/mL (0.358-3.74) Prothrombin Time 32.7 SEC (11.7-14.0) Prothromb Time International Ratio 3.2 (0.8-1.1) Procalcitonin 0.63 ng/mL (0.00-0.10) Digoxin Level 2.2 ng/mL (0.9-2.0) Digoxin Last Dose Date 09/03/20 Digoxin Last Dose Time 0900 Glucose (Fingerstick) 130 mg/dL (70-99) Review All relevant outside records, renal labs, imaging studies, telemetry/EKG's were reviewed. Images Images Exam: Chest one view INDICATION: CHF TECHNIQUE: Frontal view of the chest Comparisons: 07/24/2020 FINDINGS: Pacer with leads terminating the right atrium and ventricle. Heart is mildly enlarged. Prominence of the pulmonary artery is stable. Interstitial airspace disease in lungs, mildly increased. Stable cystic lesion at the left lateral costophrenic angle. IMPRESSION: Findings likely related to mild pulmonary edema DEXTER ULLOA MD September 04, 2020 11:33
--- NOTE | 2020-09-04 13:35 | PDOC2 ---
CONSULT Date of Consult Date of Consult DATE: 09/04/20 TIME: 13:29 Reason for Consult Reason for Consult: Heart failure, atrial fibrillation Referring Physician Referring Physician: Dr. Woods Identification/Chief Complaint Chief Complaint Shortness of breath Source Source: Chart review, Patient History of Present Illness Reason for Visit: The patient is an 89-year-old male who was admitted through the emergency room last evening for increasing shortness of breath. The patient had been having progressive increased shortness of breath over 2 to 3 days. He denied any chest pain. Chest x-ray showed mild pulmonary edema. EKG was V paced. He has been admitted for treatment of heart failure as well as COPD. He was diuresed and treated with antibiotics and pulmonary medications and is feeling better today. He denies chest pain. Reports being compliant with his medications. Past Medical History Cardiovascular: AFIB, CAD, CHF, HTN, Hyperlipidemia Pulmonary: COPD, Other CENTRAL NERVOUS SYSTEM: Other GI: No pertinent hx Heme/Onc: No pertinent hx Hepatobiliary: No pertinent hx Psych: No pertinent hx Musculoskeletal: Osteoarthritis Rheumatologic: No pertinent hx Infectious disease: No pertinent hx Renal/: No pertinent hx Endocrine: Diabetes Past Surgical History Past Surgical History: Pacemaker, Cholecystectomy, Other Family History Family History: Heart Disease Social History Quit ALCOHOL: none Drugs: None Lives: with Family Current Problem List Problem List Problems Medical Problems: (1) CHF (congestive heart failure) Status: Acute Current Medications Current Medications Current Medications Furosemide (Lasix) 40 mg 1X ONCE IVP Last administered on 09/03/20at 21:07; Start 09/03/20 at 21:00; Stop 09/03/20 at 21:01; Status DC Piperacillin Sod/ Tazobactam Sod 3.375 gm/Sodium Chloride 50 ml @ 100 mls/hr 1X ONCE IV Last administered on 09/03/20at 21:08; Start 09/03/20 at 21:00; Stop 09/03/20 at 21:29; Status DC Ondansetron HCl (Zofran) 4 mg PRN Q8HRS PRN IV NAUSEA/VOMITING; Start 09/03/20 at 21:00; Stop 09/04/20 at 20:59 Morphine Sulfate (Morphine Sulfate) 2 mg PRN Q2HR PRN IV PAIN; Start 09/03/20 at 21:00; Stop 09/04/20 at 20:59 Acetaminophen (Tylenol) 650 mg PRN Q4HRS PRN PO FEVER > 100.3'F; Start 09/03/20 at 21:00; Stop 09/04/20 at 20:59 Ascorbic Acid (Vitamin C) 250 mg DAILY PO Last administered on 09/04/20at 08:38; Start 09/04/20 at 09:00 Aspirin (Aspirin Chewable) 81 mg BID PO Last administered on 09/04/20at 08:38; Start 09/04/20 at 09:00 Atorvastatin Calcium (Lipitor) 40 mg DAILY PO Last administered on 09/04/20at 08:38; Start 09/04/20 at 09:00 Bumetanide (Bumex) 1 mg BID92 PO ; Start 09/04/20 at 09:00; Stop 09/04/20 at 07:53; Status DC Digoxin (Lanoxin) 125 mcg DAILY PO ; Start 09/04/20 at 09:00; Stop 09/04/20 at 07:47; Status DC Docusate Sodium (Colace) 100 mg TID PO Last administered on 09/04/20at 08:38; Start 09/04/20 at 09:00 Acetaminophen/ Hydrocodone Bitart (Lortab 5/325) 1 tab PRN Q6HRS PRN PO PAIN; Start 09/03/20 at 22:15 Metoprolol Tartrate (Lopressor) 100 mg DAILY PO ; Start 09/04/20 at 09:00; Stop 09/04/20 at 07:29; Status DC Warfarin Sodium (Coumadin Per Pharmacy) 1 each PRN DAILY PRN MC SEE COMMENTS Last administered on 09/04/20at 09:47; Start 09/03/20 at 22:15 Piperacillin Sod/ Tazobactam Sod (Zosyn Per Pharmacy) 1 each PRN DAILY PRN MC SEE COMMENTS; Start 09/03/20 at 22:15 Albuterol/ Ipratropium (Duoneb) 3 ml RTQID NEB Last administered on 09/04/20at 13:01; Start 09/04/20 at 08:00 Prednisone (Prednisone) 40 mg 1X ONCE PO Last administered on 09/03/20at 22:41; Start 09/03/20 at 22:15; Stop 09/03/20 at 22:21; Status DC Insulin Human Lispro (HumaLOG) 0-7 UNITS TIDWMEALS SQ Last administered on 09/04/20at 12:32; Start 09/04/20 at 08:00 Dextrose (Dextrose 50%-Water Syringe) 12.5 gm PRN Q15MIN PRN IV SEE COMMENTS; Start 09/03/20 at 22:15 Piperacillin Sod/ Tazobactam Sod 3.375 gm/Sodium Chloride 50 ml @ 100 mls/hr Q6HRS IV Last administered on 09/04/20at 12:27; Start 09/04/20 at 06:00 Warfarin Sodium (Coumadin - No Dose Today) 1 each 1X WARF ONCE MC ; Start 09/04 at 16:00; Stop 09/04/20 at 16:01 Bumetanide (Bumex) 2.5 mg BID92 IV Last administered on 09/04/20at 08:39; Start 09/04/20 at 09:00 Lactobacillus Rhamnosus (Culturelle) 1 cap BID PO ; Start 09/04/20 at 21:00 Active Scripts Active [place] 5-325 Tablet (Acetaminophen/Hydrocodone Bitart) 1 Each Tablet 7.5 Mg PO PRN Q6HRS PRN 6 Days LAST DOSE GIVEN: Reported Bumetanide 1 Mg Tablet 1 Mg PO BID Colace (Docusate Sodium) 100 Mg Capsule 1 Cap PO TID Metamucil Powder (Psyllium Seed (with Sugar)) 575 Gm Powder 575 Gm PO DAILY Atorvastatin Calcium 40 Mg Tablet 1 Tab PO DAILY Metoprolol Tartrate 100 Mg Tablet 100 Mg PO DAILY Tamsulosin Hcl 0.4 Mg Cap.er.24h 0.4 Mg PO HS DAILY Vitamin C (Ascorbic Acid) 500 Mg Tablet 250 Mg PO DAILY Warfarin Sodium 5 Mg Tablet 1.5 Tab PO QWE Warfarin Sodium 5 Mg Tablet 1 Tab PO DAILY EXCEPT WED. Aspirin 81 Mg Tab.chew 81 Mg PO BID Lanoxin (Digoxin) 125 Mcg Tablet 125 Mcg PO DAILY Allergies Allergies: Coded Allergies: I S O L A T I O N *CONTACT* (Verified Allergy, Unknown, 10/15/18) VRE No Known Medication Allergies (Verified Allergy, Unknown, 10/15/18) ROS General: YES: Fatigue Respiratory: YES: Shortness of breath, SOB with excertion Physical Exam General: mild distress Lungs: Other (Decreased breath sounds) Heart: Regular rate Abdomen: Normal bowel sounds Vitals VITALS Vital Signs Date Time Temp Pulse Resp B/P (MAP) Pulse Ox O2 Delivery O2 Flow Rate FiO2 09/04/20 13:01 100 Room Air 09/04/20 11:00 98.2 51 16 109/48 (68) 98.2 Labs Labs Laboratory Tests Test 09/03/20 19:46 09/04/20 05:00 09/04/20 08:41 09/04/20 12:11 White Blood Count 27.7 x10^3/uL (4.0-11.0) 27.3 x10^3/uL (4.0-11.0) Red Blood Count 3.84 x10^6/uL (4.30-5.70) 3.74 x10^6/uL (4.30-5.70) Hemoglobin 11.0 g/dL (13.0-17.5) 10.3 g/dL (13.0-17.5) Hematocrit 35.1 % (39.0-53.0) 34.7 % (39.0-53.0) Mean Corpuscular Volume 92 fL (79-100) 93 fL (79-100) Mean Corpuscular Hemoglobin 29 pg (25-35) 28 pg (25-35) Mean Corpuscular Hemoglobin Concent 31 g/dL (31-37) 30 g/dL (31-37) Red Cell Distribution Width 24.3 % (11.5-14.5) 25.4 % (11.5-14.5) Platelet Count 499 x10^3/uL (140-400) 454 x10^3/uL (140-400) Neutrophils (%) (Auto) 87 % (31-73) 85 % (31-73) Lymphocytes (%) (Auto) 7 % (24-48) 6 % (24-48) Monocytes (%) (Auto) 2 % (0-9) 1 % (0-9) Eosinophils (%) (Auto) 2 % (0-3) 1 % (0-3) Basophils (%) (Auto) 2 % (0-3) 6 % (0-3) Neutrophils # (Auto) 24.1 x10^3/uL (1.8-7.7) 23.3 x10^3/uL (1.8-7.7) Lymphocytes # (Auto) 2.0 x10^3/uL (1.0-4.8) 1.7 x10^3/uL (1.0-4.8) Monocytes # (Auto) 0.5 x10^3/uL (0.0-1.1) 0.4 x10^3/uL (0.0-1.1) Eosinophils # (Auto) 0.5 x10^3/uL (0.0-0.7) 0.4 x10^3/uL (0.0-0.7) Basophils # (Auto) 0.6 x10^3/uL (0.0-0.2) 1.5 x10^3/uL (0.0-0.2) Segmented Neutrophils % 88 % (35-66) Band Neutrophils % 2 % (0-9) Lymphocytes % 5 % (24-48) Monocytes % 2 % (0-10) Eosinophils % 2 % (0-5) Basophils % 1 % (0-3) Nucleated Red Blood Cells 3 Platelet Estimate Increased (ADEQUATE) Large Platelets Few Giant Platelets Few Polychromasia Mod Poikilocytosis Slight Microcytosis Slight Macrocytosis Mod Tear Drop Cells Occ Ovalocytes Occ Sodium Level 144 mmol/L (136-145) 145 mmol/L (136-145) Potassium Level 4.1 mmol/L (3.5-5.1) 4.7 mmol/L (3.5-5.1) Chloride Level 110 mmol/L (98-107) 111 mmol/L (98-107) Carbon Dioxide Level 23 mmol/L (21-32) 23 mmol/L (21-32) Anion Gap 11 (6-14) 11 (6-14) Blood Urea Nitrogen 60 mg/dL (8-26) 58 mg/dL (8-26) Creatinine 2.2 mg/dL (0.7-1.3) 2.1 mg/dL (0.7-1.3) Estimated GFR (Cockcroft-Gault) 34.4 36.2 BUN/Creatinine Ratio 27 (6-20) 28 (6-20) Glucose Level 88 mg/dL (70-99) 108 mg/dL (70-99) Calcium Level 8.9 mg/dL (8.5-10.1) 8.6 mg/dL (8.5-10.1) Phosphorus Level 4.1 mg/dL (2.6-4.7) Magnesium Level 2.4 mg/dL (1.8-2.4) Total Bilirubin 2.4 mg/dL (0.2-1.0) 2.2 mg/dL (0.2-1.0) Aspartate Amino Transf (AST/SGOT) 64 U/L (15-37) 56 U/L (15-37) Alanine Aminotransferase (ALT/SGPT) 12 U/L (16-63) 12 U/L (16-63) Alkaline Phosphatase 147 U/L (46-116) 138 U/L (46-116) Troponin I Quantitative < 0.017 ng/mL (0.000-0.055) < 0.017 ng/mL (0.000-0.055) FH-Mhv-C-Type Natriuretic Peptide 09291 pg/mL (0-449) Total Protein 6.4 g/dL (6.4-8.2) 5.5 g/dL (6.4-8.2) Albumin 3.0 g/dL (3.4-5.0) 2.7 g/dL (3.4-5.0) Albumin/Globulin Ratio 0.9 (1.0-1.7) 1.0 (1.0-1.7) Thyroid Stimulating Hormone (TSH) 5.598 uIU/mL (0.358-3.74) Prothrombin Time 32.7 SEC (11.7-14.0) Prothromb Time International Ratio 3.2 (0.8-1.1) Procalcitonin 0.63 ng/mL (0.00-0.10) Digoxin Level 2.2 ng/mL (0.9-2.0) Digoxin Last Dose Date 09/03/20 Digoxin Last Dose Time 0900 Glucose (Fingerstick) 130 mg/dL (70-99) 215 mg/dL (70-99) Laboratory Tests Test 09/03/20 19:46 09/04/20 05:00 09/04/20 08:41 09/04/20 12:11 White Blood Count 27.7 x10^3/uL (4.0-11.0) 27.3 x10^3/uL (4.0-11.0) Red Blood Count 3.84 x10^6/uL (4.30-5.70) 3.74 x10^6/uL (4.30-5.70) Hemoglobin 11.0 g/dL (13.0-17.5) 10.3 g/dL (13.0-17.5) Hematocrit 35.1 % (39.0-53.0) 34.7 % (39.0-53.0) Mean Corpuscular Volume 92 fL (79-100) 93 fL (79-100) Mean Corpuscular Hemoglobin 29 pg (25-35) 28 pg (25-35) Mean Corpuscular Hemoglobin Concent 31 g/dL (31-37) 30 g/dL (31-37) Red Cell Distribution Width 24.3 % (11.5-14.5) 25.4 % (11.5-14.5) Platelet Count 499 x10^3/uL (140-400) 454 x10^3/uL (140-400) Neutrophils (%) (Auto) 87 % (31-73) 85 % (31-73) Lymphocytes (%) (Auto) 7 % (24-48) 6 % (24-48) Monocytes (%) (Auto) 2 % (0-9) 1 % (0-9) Eosinophils (%) (Auto) 2 % (0-3) 1 % (0-3) Basophils (%) (Auto) 2 % (0-3) 6 % (0-3) Neutrophils # (Auto) 24.1 x10^3/uL (1.8-7.7) 23.3 x10^3/uL (1.8-7.7) Lymphocytes # (Auto) 2.0 x10^3/uL (1.0-4.8) 1.7 x10^3/uL (1.0-4.8) Monocytes # (Auto) 0.5 x10^3/uL (0.0-1.1) 0.4 x10^3/uL (0.0-1.1) Eosinophils # (Auto) 0.5 x10^3/uL (0.0-0.7) 0.4 x10^3/uL (0.0-0.7) Basophils # (Auto) 0.6 x10^3/uL (0.0-0.2) 1.5 x10^3/uL (0.0-0.2) Segmented Neutrophils % 88 % (35-66) Band Neutrophils % 2 % (0-9) Lymphocytes % 5 % (24-48) Monocytes % 2 % (0-10) Eosinophils % 2 % (0-5) Basophils % 1 % (0-3) Nucleated Red Blood Cells 3 Platelet Estimate Increased (ADEQUATE) Large Platelets Few Giant Platelets Few Polychromasia Mod Poikilocytosis Slight Microcytosis Slight Macrocytosis Mod Tear Drop Cells Occ Ovalocytes Occ Sodium Level 144 mmol/L (136-145) 145 mmol/L (136-145) Potassium Level 4.1 mmol/L (3.5-5.1) 4.7 mmol/L (3.5-5.1) Chloride Level 110 mmol/L (98-107) 111 mmol/L (98-107) Carbon Dioxide Level 23 mmol/L (21-32) 23 mmol/L (21-32) Anion Gap 11 (6-14) 11 (6-14) Blood Urea Nitrogen 60 mg/dL (8-26) 58 mg/dL (8-26) Creatinine 2.2 mg/dL (0.7-1.3) 2.1 mg/dL (0.7-1.3) Estimated GFR (Cockcroft-Gault) 34.4 36.2 BUN/Creatinine Ratio 27 (6-20) 28 (6-20) Glucose Level 88 mg/dL (70-99) 108 mg/dL (70-99) Calcium Level 8.9 mg/dL (8.5-10.1) 8.6 mg/dL (8.5-10.1) Phosphorus Level 4.1 mg/dL (2.6-4.7) Magnesium Level 2.4 mg/dL (1.8-2.4) Total Bilirubin 2.4 mg/dL (0.2-1.0) 2.2 mg/dL (0.2-1.0) Aspartate Amino Transf (AST/SGOT) 64 U/L (15-37) 56 U/L (15-37) Alanine Aminotransferase (ALT/SGPT) 12 U/L (16-63) 12 U/L (16-63) Alkaline Phosphatase 147 U/L (46-116) 138 U/L (46-116) Troponin I Quantitative < 0.017 ng/mL (0.000-0.055) < 0.017 ng/mL (0.000-0.055) AY-Kgz-V-Type Natriuretic Peptide 26960 pg/mL (0-449) Total Protein 6.4 g/dL (6.4-8.2) 5.5 g/dL (6.4-8.2) Albumin 3.0 g/dL (3.4-5.0) 2.7 g/dL (3.4-5.0) Albumin/Globulin Ratio 0.9 (1.0-1.7) 1.0 (1.0-1.7) Thyroid Stimulating Hormone (TSH) 5.598 uIU/mL (0.358-3.74) Prothrombin Time 32.7 SEC (11.7-14.0) Prothromb Time International Ratio 3.2 (0.8-1.1) Procalcitonin 0.63 ng/mL (0.00-0.10) Digoxin Level 2.2 ng/mL (0.9-2.0) Digoxin Last Dose Date 09/03/20 Digoxin Last Dose Time 0900 Glucose (Fingerstick) 130 mg/dL (70-99) 215 mg/dL (70-99) Images Images Chest x-ray with mild pulmonary edema. Assessment/Plan Assessment/Plan 1. Acute on chronic systolic heart failure. Patient is improved post diuresis overnight. Echocardiogram last year showed an ejection fraction of 40%. We will continue present treatment. Dig level of 2.2 and will hold secondary to mild elevation in the setting of renal disease. 2. Exacerbation of COPD. Being evaluated and treated by the pulmonary service. Continue as above. 3. Atrial fibrillation. Paced rhythm at this time. Continuing present treatment. Will check on the patient's pacemaker. 4. History of coronary artery disease. Occluded LAD. No chest pain. Continuing present treatment. 5. Hyperlipidemia. Continue medications and check lab. 6. Diabetes mellitus. As per the primary service. MAGI JEAN-BAPTISTE MD September 04, 2020 13:35
[2020-09-04 15:00] VITALS: BP 102/44
[2020-09-04 19:15] VITALS: BP 119/47
[2020-09-04] MEDS: LACTOBACILLUS RHAMNOSUS GG 1 CAPSULE. PO SCH (21:16)
[2020-09-04] MEDS: HYDROcodone/APAP 5/325MG 1 TAB TABLET PO PRN (22:54)
[2020-09-04 23:35] VITALS: BP 109/52
[2020-09-05 03:00] VITALS: BP 114/47
[2020-09-05] MEDS: PIPERACILLIN/TAZOBACTAM 3.375 GM in IV NORMAL SALINE 50ML 50 ML IV SCH ×4 (05:28→23:58)
[2020-09-05 07:00] VITALS: BP 114/54
[2020-09-05 07:23] LABS: ALBUMIN 2.3 g/dL (3.4-5.0); CALCIUM 8.7 mg/dL (8.5-10.1); CREATININE 2.3 mg/dL (0.7-1.3); GFR 32.6; PHOSPHORUS 4.1 mg/dL (2.6-4.7); POTASSIUM 3.4 mmol/L (3.5-5.1)
[2020-09-05 07:32] LABS: PROTHROMBIN TIME PATIENT 40.6 SEC (11.7-14.0)
[2020-09-05] MEDS: IPRATRPIUM/ALBUTEROL 0.5/2.5MG 3 ML NEBU. NEB SCH ×4 (07:41→20:11)
[2020-09-05] MEDS ORDERED: POTASSIUM BICARB 20 MEQ EFFERVESCENT TABLET. PO ONE (08:00)
[2020-09-05] MEDS: INSULIN LISPRO 300 UNITS/3 ML VIAL. SQ SCH ×3 (08:00→17:00)
[2020-09-05] MEDS: BUMETANIDE 1 MG/4 ML VIAL. IV SCH ×2 (09:04→13:39)
[2020-09-05] MEDS: ATORVASTATIN CALCIUM 40 MG TABLET. PO SCH (09:05)
[2020-09-05] MEDS: ASCORBIC ACID 500 MG TABLET PO SCH (09:05)
[2020-09-05] MEDS: LACTOBACILLUS RHAMNOSUS GG 1 CAPSULE. PO SCH ×2 (09:05→21:43)
[2020-09-05] MEDS: ASPIRIN CHEWABLE 81 MG TABLET. PO SCH ×2 (09:05→21:43)
--- NOTE | 2020-09-05 09:05 | NUR ---
Pharmacy Warfarin Dosing Note S: Pharmacy consulted to assist with anticoagulation therapy O: MAMTA MACIAS is a 89 year old M with Atrial Fibrillation LABS: Last INR: 4.1 Last HGB: 10.3 Last HCT: 34.7 Last PLT: 454 Dose held 09/04/20 for INR of 3.2 Vitamin K given: no Ongoing Drug Interactions: ZOSYN A:INR of 4.1 is above desired range; trending up from INR of 3.2 yesterday despite holding warfarin dose. Interaction with Zosyn could be cause of supra-therapeutic value. P: HOLD warfarin dose 09/05/20 Bridge Therapy: None Next INR due 09/06/20 Pharmacy anticoagulation service will continue to follow. PARTHA DIAS RPH, 09/05/20 [id number]
[2020-09-05] MEDS: DOCUSATE SODIUM 100 MG CAPSULE. PO SCH ×3 (09:06→21:43)
--- NOTE | 2020-09-05 10:02 | PDOC ---
PULMONARY PROGRESS NOTES DATE: 09/05/20 TIME: 10:01 Subjective on RA sob better, has occ cough Vitals Vital Signs Date Time Temp Pulse Resp B/P (MAP) Pulse Ox O2 Delivery O2 Flow Rate FiO2 09/05/20 07:41 Room Air 09/05/20 03:00 97.1 70 21 114/47 (69) 93 97.1 ROS: No Nausea General: Alert, No acute distress HEENT: Other Lungs: Crackles Cardiovascular: S1, S2 Abdomen: Soft, Non-tender Neuro Exam: Alert, Oriented Extremities: Other (edema) Skin: Warm Labs Laboratory Tests Test 09/03/20 19:46 09/04/20 05:00 09/04/20 08:41 09/04/20 12:11 White Blood Count 27.7 x10^3/uL (4.0-11.0) 27.3 x10^3/uL (4.0-11.0) Red Blood Count 3.84 x10^6/uL (4.30-5.70) 3.74 x10^6/uL (4.30-5.70) Hemoglobin 11.0 g/dL (13.0-17.5) 10.3 g/dL (13.0-17.5) Hematocrit 35.1 % (39.0-53.0) 34.7 % (39.0-53.0) Mean Corpuscular Volume 92 fL (79-100) 93 fL (79-100) Mean Corpuscular Hemoglobin 29 pg (25-35) 28 pg (25-35) Mean Corpuscular Hemoglobin Concent 31 g/dL (31-37) 30 g/dL (31-37) Red Cell Distribution Width 24.3 % (11.5-14.5) 25.4 % (11.5-14.5) Platelet Count 499 x10^3/uL (140-400) 454 x10^3/uL (140-400) Neutrophils (%) (Auto) 87 % (31-73) 85 % (31-73) Lymphocytes (%) (Auto) 7 % (24-48) 6 % (24-48) Monocytes (%) (Auto) 2 % (0-9) 1 % (0-9) Eosinophils (%) (Auto) 2 % (0-3) 1 % (0-3) Basophils (%) (Auto) 2 % (0-3) 6 % (0-3) Neutrophils # (Auto) 24.1 x10^3/uL (1.8-7.7) 23.3 x10^3/uL (1.8-7.7) Lymphocytes # (Auto) 2.0 x10^3/uL (1.0-4.8) 1.7 x10^3/uL (1.0-4.8) Monocytes # (Auto) 0.5 x10^3/uL (0.0-1.1) 0.4 x10^3/uL (0.0-1.1) Eosinophils # (Auto) 0.5 x10^3/uL (0.0-0.7) 0.4 x10^3/uL (0.0-0.7) Basophils # (Auto) 0.6 x10^3/uL (0.0-0.2) 1.5 x10^3/uL (0.0-0.2) Segmented Neutrophils % 88 % (35-66) Band Neutrophils % 2 % (0-9) Lymphocytes % 5 % (24-48) Monocytes % 2 % (0-10) Eosinophils % 2 % (0-5) Basophils % 1 % (0-3) Nucleated Red Blood Cells 3 Platelet Estimate Increased (ADEQUATE) Large Platelets Few Giant Platelets Few Polychromasia Mod Poikilocytosis Slight Microcytosis Slight Macrocytosis Mod Tear Drop Cells Occ Ovalocytes Occ Sodium Level 144 mmol/L (136-145) 145 mmol/L (136-145) Potassium Level 4.1 mmol/L (3.5-5.1) 4.7 mmol/L (3.5-5.1) Chloride Level 110 mmol/L (98-107) 111 mmol/L (98-107) Carbon Dioxide Level 23 mmol/L (21-32) 23 mmol/L (21-32) Anion Gap 11 (6-14) 11 (6-14) Blood Urea Nitrogen 60 mg/dL (8-26) 58 mg/dL (8-26) Creatinine 2.2 mg/dL (0.7-1.3) 2.1 mg/dL (0.7-1.3) Estimated GFR (Cockcroft-Gault) 34.4 36.2 BUN/Creatinine Ratio 27 (6-20) 28 (6-20) Glucose Level 88 mg/dL (70-99) 108 mg/dL (70-99) Calcium Level 8.9 mg/dL (8.5-10.1) 8.6 mg/dL (8.5-10.1) Phosphorus Level 4.1 mg/dL (2.6-4.7) Magnesium Level 2.4 mg/dL (1.8-2.4) Total Bilirubin 2.4 mg/dL (0.2-1.0) 2.2 mg/dL (0.2-1.0) Aspartate Amino Transf (AST/SGOT) 64 U/L (15-37) 56 U/L (15-37) Alanine Aminotransferase (ALT/SGPT) 12 U/L (16-63) 12 U/L (16-63) Alkaline Phosphatase 147 U/L (46-116) 138 U/L (46-116) Troponin I Quantitative < 0.017 ng/mL (0.000-0.055) < 0.017 ng/mL (0.000-0.055) OB-Bbt-G-Type Natriuretic Peptide 27432 pg/mL (0-449) Total Protein 6.4 g/dL (6.4-8.2) 5.5 g/dL (6.4-8.2) Albumin 3.0 g/dL (3.4-5.0) 2.7 g/dL (3.4-5.0) Albumin/Globulin Ratio 0.9 (1.0-1.7) 1.0 (1.0-1.7) Thyroid Stimulating Hormone (TSH) 5.598 uIU/mL (0.358-3.74) Prothrombin Time 32.7 SEC (11.7-14.0) Prothromb Time International Ratio 3.2 (0.8-1.1) Procalcitonin 0.63 ng/mL (0.00-0.10) Digoxin Level 2.2 ng/mL (0.9-2.0) Digoxin Last Dose Date 09/03/20 Digoxin Last Dose Time 0900 Glucose (Fingerstick) 130 mg/dL (70-99) 215 mg/dL (70-99) Test 09/04/20 17:32 09/05/20 06:40 Glucose (Fingerstick) 163 mg/dL (70-99) Prothrombin Time 40.6 SEC (11.7-14.0) Prothromb Time International Ratio 4.1 (0.8-1.1) Sodium Level 146 mmol/L (136-145) Potassium Level 3.4 mmol/L (3.5-5.1) Chloride Level 110 mmol/L (98-107) Carbon Dioxide Level 22 mmol/L (21-32) Anion Gap 14 (6-14) Blood Urea Nitrogen 58 mg/dL (8-26) Creatinine 2.3 mg/dL (0.7-1.3) Estimated GFR (Cockcroft-Gault) 32.6 Glucose Level 117 mg/dL (70-99) Calcium Level 8.7 mg/dL (8.5-10.1) Phosphorus Level 4.1 mg/dL (2.6-4.7) Albumin 2.3 g/dL (3.4-5.0) Laboratory Tests Test 09/04/20 12:11 09/04/20 17:32 09/05/20 06:40 Glucose (Fingerstick) 215 mg/dL (70-99) 163 mg/dL (70-99) Prothrombin Time 40.6 SEC (11.7-14.0) Prothromb Time International Ratio 4.1 (0.8-1.1) Sodium Level 146 mmol/L (136-145) Potassium Level 3.4 mmol/L (3.5-5.1) Chloride Level 110 mmol/L (98-107) Carbon Dioxide Level 22 mmol/L (21-32) Anion Gap 14 (6-14) Blood Urea Nitrogen 58 mg/dL (8-26) Creatinine 2.3 mg/dL (0.7-1.3) Estimated GFR (Cockcroft-Gault) 32.6 Glucose Level 117 mg/dL (70-99) Calcium Level 8.7 mg/dL (8.5-10.1) Phosphorus Level 4.1 mg/dL (2.6-4.7) Albumin 2.3 g/dL (3.4-5.0) Medications Active Scripts Medications Dose Route/Sig Max Daily Dose Days Date Category Dose Instructions Bumetanide 1 Mg Tablet 1 Mg PO BID 07/28/20 Reported [place] 5-325 Tablet (Acetaminophen/Hydrocodone Bitart) 1 Each Tablet 7.5 Mg PO PRN Q6HRS PRN 6 09/20/18 Rx LAST DOSE GIVEN: Colace (Docusate Sodium) 100 Mg Capsule 1 Cap PO TID 09/09/18 Reported Metamucil Powder (Psyllium Seed (with Sugar)) 575 Gm Powder 575 Gm PO DAILY 09/09/18 Reported Atorvastatin Calcium 40 Mg Tablet 1 Tab PO DAILY 08/12/18 Reported Metoprolol Tartrate 100 Mg Tablet 100 Mg PO DAILY 11/08/17 Reported Tamsulosin Hcl 0.4 Mg Cap.er.24h 0.4 Mg PO HS DAILY 11/08/17 Reported Vitamin C (Ascorbic Acid) 500 Mg Tablet 250 Mg PO DAILY 05/08/14 Reported Warfarin Sodium 5 Mg Tablet 1.5 Tab PO QWE 04/18/14 Reported Warfarin Sodium 5 Mg Tablet 1 Tab PO DAILY EXCEPT WED. 04/18/14 Reported Aspirin 81 Mg Tab.chew 81 Mg PO BID 08/22/13 Reported Lanoxin (Digoxin) 125 Mcg Tablet 125 Mcg PO DAILY 08/22/13 Reported Impression . IMPRESSION: 1. Dyspnea secondary to acute systolic and diastolic congestive heart failure, rule out acute bronchitis. 2. Abnormal chest x-ray. 3. 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 4. Cardiomyopathy. 5. 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 6. Obstructive sleep apnea-hypopnea syndrome, CPAP noncompliant. 7. Paroxysmal atrial fibrillation, on Coumadin. 8. Acute kidney injury/chronic kidney disease. Plan . FINAL RECOMMENDATIONS: 1. Titrate FiO2 to keep O2 saturation 92%. 2. Cardiology consulted Continue Bumex. Monitor potassium and creatinine. 3. I had a long discussion with him regarding obstructive sleep apnea-hypopnea syndrome, the importance of treatment. If untreated, increased cardiovascular and [employer]ATION [employer]GER morbidity and mortality. He understood, but does not want to use CPAP. He understands the risks of not treating obstructive sleep apnea-hypopnea syndrome. 4. Continue Coumadin. Keep INR between 2 and 3. 5. Continue antibiotic. 6. Monitor creatinine. follow Nephrology rec 7. The findings and recommendations were discussed with the patient and RN. IFEANYI JACQUES MD September 05, 2020 10:02
--- NOTE | 2020-09-05 10:27 | PDOC ---
DATE OF SERVICE DATE: 09/05/20 TIME: 10:25 SUBJECTIVE ROS Stable, On RA , BP lowish , states feeling much better than yesterday OBJECTIVE Vital Signs Vital Signs Date Time Temp Pulse Resp B/P (MAP) Pulse Ox O2 Delivery O2 Flow Rate FiO2 09/05/20 07:45 Room Air 09/05/20 07:00 96.3 64 18 114/54 (74) 97 96.3 I & 0 Intake and Output 09/05/20 07:00 Intake Total 610 ml Output Total 900 ml Balance -290 ml Intake Oral 610 ml Output Urine Total 900 ml # Voids 4 PHYSICAL EXAM Physical Exam Gen NAD , sitting up in chair HEEN OM moist, hard of hearing Neck Supple Lungs decreased bases, Non labored CV S1`s2 Abd Soft, NT Neuro grossly Normal Skin No rash No CVA OR SP tenderness, No gaytan Ext DIAGNOSIS/ASSESSMENT Assessment & Plan DION - suspect Cardiorenal , Cr elevated in July - admitted for CHF, prior labs in [facility] records with normal baseline Cr . Cr up to 2.3 , stable, monitor, supportive care, Strict I/O, Avoid nephrotoxins. Agree with holding Bumex Acute on chronic systolic heart failure- Symptoms improved post diuresis overnight. Echocardiogram 2020 ejection fraction of 40%. Exacerbation of COPD. Atrial fibrillation. History of coronary artery disease. Diabetes mellitus Hypertension; controlled COMMENT/RELEVANT DATA Meds Current Medications Medications (Trade) Dose Ordered Sig/Rakesh Start Time Stop Time Status Last Admin Dose Admin Acetaminophen (Tylenol) 650 mg PRN Q4HRS PRN 09/03/20 21:00 09/04/20 20:59 DC Acetaminophen/ Hydrocodone Bitart (Lortab 5/325) 1 tab PRN Q6HRS PRN 09/03/20 22:15 09/04/20 22:54 1 TAB Albuterol/ Ipratropium (Duoneb) 3 ml RTQID 09/04/20 08:00 09/05/20 07:41 3 ML Ascorbic Acid (Vitamin C) 250 mg DAILY 09/04/20 09:00 09/05/20 09:05 250 MG Aspirin (Aspirin Chewable) 81 mg BID 09/04/20 09:00 09/05/20 09:05 81 MG Atorvastatin Calcium (Lipitor) 40 mg DAILY 09/04/20 09:00 09/05/20 09:05 40 MG Bumetanide (Bumex) 1 mg BID92 09/05/20 09:00 09/05/20 09:04 1 MG Dextrose (Dextrose 50%-Water Syringe) 12.5 gm PRN Q15MIN PRN 09/03/20 22:15 Digoxin (Lanoxin) 125 mcg DAILY 09/04/20 09:00 09/04/20 07:47 DC Docusate Sodium (Colace) 100 mg TID 09/04/20 09:00 09/05/20 09:06 100 MG Furosemide (Lasix) 40 mg 1X ONCE 09/03/20 21:00 09/03/20 21:01 DC 09/03/20 21:07 40 MG Insulin Human Lispro (HumaLOG) 0-7 UNITS TIDWMEALS 09/04/20 08:00 09/04/20 12:32 4 UNITS Lactobacillus Rhamnosus (Culturelle) 1 cap BID 09/04/20 21:00 09/05/20 09:05 1 CAP Metoprolol Tartrate (Lopressor) 100 mg DAILY 09/04/20 09:00 09/04/20 07:29 DC Morphine Sulfate (Morphine Sulfate) 2 mg PRN Q2HR PRN 09/03/20 21:00 09/04/20 20:59 DC Ondansetron HCl (Zofran) 4 mg PRN Q8HRS PRN 09/03/20 21:00 09/04/20 20:59 DC Piperacillin Sod/ Tazobactam Sod (Zosyn Per Pharmacy) 1 each PRN DAILY PRN 09/03/20 22:15 Piperacillin Sod/ Tazobactam Sod 3.375 gm/Sodium Chloride 50 ml @ 100 mls/hr Q6HRS 09/04/20 06:00 09/05/20 05:28 100 MLS/HR Potassium Bicarbonate (Potassium Effervescent Tablet) 40 meq 1X ONCE 09/05/20 08:00 09/05/20 08:01 DC 09/05/20 09:06 40 MEQ Prednisone (Prednisone) 40 mg 1X ONCE 09/03/20 22:15 09/03/20 22:21 DC 09/03/20 22:41 40 MG Tamsulosin HCl (Flomax) 0.4 mg QHS 09/05/20 21:00 Warfarin Sodium (Coumadin - No Dose Today) 1 each 1X WARF ONCE 09/05/20 16:00 09/05/20 16:01 Warfarin Sodium (Coumadin Per Pharmacy) 1 each PRN DAILY PRN 09/03/20 22:15 09/05/20 09:05 1 EACH Lab Laboratory Tests Test 09/04/20 12:11 09/04/20 17:32 09/05/20 06:40 Glucose (Fingerstick) 215 mg/dL (70-99) 163 mg/dL (70-99) Prothrombin Time 40.6 SEC (11.7-14.0) Prothromb Time International Ratio 4.1 (0.8-1.1) Sodium Level 146 mmol/L (136-145) Potassium Level 3.4 mmol/L (3.5-5.1) Chloride Level 110 mmol/L (98-107) Carbon Dioxide Level 22 mmol/L (21-32) Anion Gap 14 (6-14) Blood Urea Nitrogen 58 mg/dL (8-26) Creatinine 2.3 mg/dL (0.7-1.3) Estimated GFR (Cockcroft-Gault) 32.6 Glucose Level 117 mg/dL (70-99) Calcium Level 8.7 mg/dL (8.5-10.1) Phosphorus Level 4.1 mg/dL (2.6-4.7) Albumin 2.3 g/dL (3.4-5.0) Results All relevant outside records, renal labs, imaging studies, telemetry/EKG's were reviewed. Justicifation of Admission Dx: Justifications for Admission: Justification of Admission Dx: Yes DEXTER ULLOA MD September 05, 2020 10:27
[2020-09-05 11:00] VITALS: BP 105/45
--- NOTE | 2020-09-05 11:25 | PDOC ---
[facility] PROGRESS NOTE Date of Service DOS: DATE: 09/05/20 TIME: 10:59 Chief Complaint Chief Complaint A/P: Acute on chronic combined systolic and diastolic heart failure. We will diurese with intravenous Bumex. 2D echo in September 2019 showed LVEF 40%. Coronary artery disease: Patient has known chronic total occlusion of LAD with collaterals, presently stable and chest pain-free. Lexiscan nuclear stress test in March 2020 showed large inferior infarct without any significant ischemia. Continue current secondary prevention measures. Sick sinus syndrome s/p permanent pacemaker implantation with more recent generator change. Recent device check showed normal function. He denied any syncope or near syncope. Permanent atrial fibrillation: Telemetry showed demand pacing. Patient on warfarin for stroke prophylaxis. Check PT/INR. Hypertension - Controlled. Will back off on his BB. He is actually on 100mg metoprolol tartrate Hyperlipidemia - Continue statin Diabetes mellitus type 2 - diet controlled, A1c previously 5.8 Severe Protein calorie malnutrition - severe given his edema and albumin. Service Control Operator to see Leukocytosis - Will obtain procalcitonin to help guide antibiotic therapy, follow up on cultures Elevated digoxin level - will hold digoxin FEN - Cardiac ADA diet PPX - warfarin CODE - FULL Dispo - inpatient CVC for CHF exacerbation History of Present Illness History of Present Illness Mr Rivero is an 89yo M w/ PMHx DM2, HLD, HTN, afib, SSS s/p PPM, CAD, chronic systolic CHF who presented to ED c/o for weakness and dyspnea. Also complains of dyspnea worsening over weeks, with a few days of noted LE edema is worse with cough in the morning that is productive of white sputum. he has cough at times, He denied any chest pain, palpitations or syncope. Given 1 dose iv lasix in ED 40mg, < 500 uop after, still feeling short of breath. He follows with Dr. Santoyo and has been recently changed to Bumex last month. Chest radiograph with interstitial edema. Labs with WBC 27.3, Hb 10.3, platelets 454, NA 145, K4.7, BUN 58, CR 2.1, INR 3.2 TSH 5.5, digoxin level 2.2, albumin 2.7, bilirubin 2.2, AST 56 ALT 12 alkaline phosphatase 138 NT proBNP 31,348 Admitted for further treatment. 09/04: Afebrile. WBC still high. Reasonably good urine output. A little confused Febrile. 1.3 L urine output. Still with very swollen lower extremities. No chest pain little bit short of breath. Not on O2 today. Vitals/I&O Vitals/I&O: Vital Signs Date Time Temp Pulse Resp B/P (MAP) Pulse Ox O2 Delivery O2 Flow Rate FiO2 09/05/20 07:45 Room Air 09/05/20 07:00 96.3 64 18 114/54 (74) 97 96.3 I & O 09/04/20 09/04/20 09/05/20 15:00 23:00 07:00 Intake Total 380 ml 180 ml 50 ml Output Total 500 ml 200 ml 200 ml Balance -120 ml -20 ml -150 ml Physical Exam General: Alert, Cooperative, mild distress Heart: Regular rate Lungs: Crackles Abdomen: Normal bowel sounds Extremities: No clubbing, Other (2+ edema, no breakdown) Skin: No rashes, No breakdown, No significant lesion Labs Labs: Laboratory Tests Test 09/04/20 12:11 09/04/20 17:32 09/05/20 06:40 09/05/20 08:34 Glucose (Fingerstick) 215 mg/dL (70-99) 163 mg/dL (70-99) 100 mg/dL (70-99) Prothrombin Time 40.6 SEC (11.7-14.0) Prothromb Time International Ratio 4.1 (0.8-1.1) Sodium Level 146 mmol/L (136-145) Potassium Level 3.4 mmol/L (3.5-5.1) Chloride Level 110 mmol/L (98-107) Carbon Dioxide Level 22 mmol/L (21-32) Anion Gap 14 (6-14) Blood Urea Nitrogen 58 mg/dL (8-26) Creatinine 2.3 mg/dL (0.7-1.3) Estimated GFR (Cockcroft-Gault) 32.6 Glucose Level 117 mg/dL (70-99) Calcium Level 8.7 mg/dL (8.5-10.1) Phosphorus Level 4.1 mg/dL (2.6-4.7) Albumin 2.3 g/dL (3.4-5.0) Assessment and Plan Assessmemt and Plan Problems Medical Problems: (1) CHF (congestive heart failure) Status: Acute Comment Review of Relevant I have reviewed the following items tiffany (where applicable) has been applied. Medications: Current Medications Medications (Trade) Dose Ordered Sig/Rakesh Route PRN Reason Start Time Stop Time Status Last Admin Dose Admin Warfarin Sodium (Coumadin - No Dose Today) 1 each 1X WARF ONCE MC 09/04/20 16:00 09/04/20 16:01 DC 09/04/20 16:00 Lactobacillus Rhamnosus (Culturelle) 1 cap BID PO 09/04/20 21:00 09/05/20 09:05 Bumetanide (Bumex) 1 mg BID92 IV 09/05/20 09:00 09/05/20 09:04 Potassium Bicarbonate (Potassium Effervescent Tablet) 40 meq 1X ONCE PO 09/05/20 08:00 09/05/20 08:01 DC 09/05/20 09:06 Justifications for Admission Other Justification RANDALL CLARK MD September 05, 2020 11:25
--- NOTE | 2020-09-05 13:31 | PDOC ---
PROGRESS NOTES Date of Service DATE: 09/05/20 TIME: 13:29 Subjective Subjective Patient seen and examined Objective Objective Vital Signs Date Time Temp Pulse Resp B/P (MAP) Pulse Ox O2 Delivery O2 Flow Rate FiO2 09/05/20 11:38 Room Air 09/05/20 11:00 97.6 50 16 105/45 (65) 99 97.6 Intake and Output 09/05/20 07:00 Intake Total 810 ml Output Total 900 ml Balance -90 ml Intake Oral 610 ml IV Total 200 ml Output Urine Total 900 ml # Voids 4 Physical Exam Abdomen: Normal bowel sounds Heart: Regular rate General: mild distress Lungs: Other (Mildly decreased breath sounds) Assessment Assessment Problems Medical Problems: (1) CHF (congestive heart failure) Status: Acute 1. Acute on chronic systolic heart failure. Patient looks and feels better today. He had good urine output overnight. Echocardiogram last year showed an ejection fraction of 40%. We will continue present treatment. 2. Exacerbation of COPD. Being evaluated and treated by the pulmonary service. Improving. Continue as above. 3. Atrial fibrillation. Paced rhythm at this time. Continuing present treatment. Will check records on the patient's pacemaker. 4. History of coronary artery disease. Occluded LAD. No chest pain. Continuing present treatment. 5. Hyperlipidemia. Continue medications. 6. Diabetes mellitus. As per the primary service. Comment Review of Relevant I have reviewed the following items tiffany (where applicable) has been applied. Labs Laboratory Tests Test 09/03/20 19:46 09/04/20 05:00 09/04/20 08:41 09/04/20 12:11 White Blood Count 27.7 x10^3/uL (4.0-11.0) 27.3 x10^3/uL (4.0-11.0) Red Blood Count 3.84 x10^6/uL (4.30-5.70) 3.74 x10^6/uL (4.30-5.70) Hemoglobin 11.0 g/dL (13.0-17.5) 10.3 g/dL (13.0-17.5) Hematocrit 35.1 % (39.0-53.0) 34.7 % (39.0-53.0) Mean Corpuscular Volume 92 fL (79-100) 93 fL (79-100) Mean Corpuscular Hemoglobin 29 pg (25-35) 28 pg (25-35) Mean Corpuscular Hemoglobin Concent 31 g/dL (31-37) 30 g/dL (31-37) Red Cell Distribution Width 24.3 % (11.5-14.5) 25.4 % (11.5-14.5) Platelet Count 499 x10^3/uL (140-400) 454 x10^3/uL (140-400) Neutrophils (%) (Auto) 87 % (31-73) 85 % (31-73) Lymphocytes (%) (Auto) 7 % (24-48) 6 % (24-48) Monocytes (%) (Auto) 2 % (0-9) 1 % (0-9) Eosinophils (%) (Auto) 2 % (0-3) 1 % (0-3) Basophils (%) (Auto) 2 % (0-3) 6 % (0-3) Neutrophils # (Auto) 24.1 x10^3/uL (1.8-7.7) 23.3 x10^3/uL (1.8-7.7) Lymphocytes # (Auto) 2.0 x10^3/uL (1.0-4.8) 1.7 x10^3/uL (1.0-4.8) Monocytes # (Auto) 0.5 x10^3/uL (0.0-1.1) 0.4 x10^3/uL (0.0-1.1) Eosinophils # (Auto) 0.5 x10^3/uL (0.0-0.7) 0.4 x10^3/uL (0.0-0.7) Basophils # (Auto) 0.6 x10^3/uL (0.0-0.2) 1.5 x10^3/uL (0.0-0.2) Segmented Neutrophils % 88 % (35-66) Band Neutrophils % 2 % (0-9) Lymphocytes % 5 % (24-48) Monocytes % 2 % (0-10) Eosinophils % 2 % (0-5) Basophils % 1 % (0-3) Nucleated Red Blood Cells 3 Platelet Estimate Increased (ADEQUATE) Large Platelets Few Giant Platelets Few Polychromasia Mod Poikilocytosis Slight Microcytosis Slight Macrocytosis Mod Tear Drop Cells Occ Ovalocytes Occ Sodium Level 144 mmol/L (136-145) 145 mmol/L (136-145) Potassium Level 4.1 mmol/L (3.5-5.1) 4.7 mmol/L (3.5-5.1) Chloride Level 110 mmol/L (98-107) 111 mmol/L (98-107) Carbon Dioxide Level 23 mmol/L (21-32) 23 mmol/L (21-32) Anion Gap 11 (6-14) 11 (6-14) Blood Urea Nitrogen 60 mg/dL (8-26) 58 mg/dL (8-26) Creatinine 2.2 mg/dL (0.7-1.3) 2.1 mg/dL (0.7-1.3) Estimated GFR (Cockcroft-Gault) 34.4 36.2 BUN/Creatinine Ratio 27 (6-20) 28 (6-20) Glucose Level 88 mg/dL (70-99) 108 mg/dL (70-99) Calcium Level 8.9 mg/dL (8.5-10.1) 8.6 mg/dL (8.5-10.1) Phosphorus Level 4.1 mg/dL (2.6-4.7) Magnesium Level 2.4 mg/dL (1.8-2.4) Total Bilirubin 2.4 mg/dL (0.2-1.0) 2.2 mg/dL (0.2-1.0) Aspartate Amino Transf (AST/SGOT) 64 U/L (15-37) 56 U/L (15-37) Alanine Aminotransferase (ALT/SGPT) 12 U/L (16-63) 12 U/L (16-63) Alkaline Phosphatase 147 U/L (46-116) 138 U/L (46-116) Troponin I Quantitative < 0.017 ng/mL (0.000-0.055) < 0.017 ng/mL (0.000-0.055) PI-Fjj-X-Type Natriuretic Peptide 99915 pg/mL (0-449) Total Protein 6.4 g/dL (6.4-8.2) 5.5 g/dL (6.4-8.2) Albumin 3.0 g/dL (3.4-5.0) 2.7 g/dL (3.4-5.0) Albumin/Globulin Ratio 0.9 (1.0-1.7) 1.0 (1.0-1.7) Thyroid Stimulating Hormone (TSH) 5.598 uIU/mL (0.358-3.74) Prothrombin Time 32.7 SEC (11.7-14.0) Prothromb Time International Ratio 3.2 (0.8-1.1) Procalcitonin 0.63 ng/mL (0.00-0.10) Digoxin Level 2.2 ng/mL (0.9-2.0) Digoxin Last Dose Date 09/03/20 Digoxin Last Dose Time 0900 Glucose (Fingerstick) 130 mg/dL (70-99) 215 mg/dL (70-99) Test 09/04/20 17:32 09/05/20 06:40 09/05/20 08:34 09/05/20 12:13 Glucose (Fingerstick) 163 mg/dL (70-99) 100 mg/dL (70-99) 115 mg/dL (70-99) Prothrombin Time 40.6 SEC (11.7-14.0) Prothromb Time International Ratio 4.1 (0.8-1.1) Sodium Level 146 mmol/L (136-145) Potassium Level 3.4 mmol/L (3.5-5.1) Chloride Level 110 mmol/L (98-107) Carbon Dioxide Level 22 mmol/L (21-32) Anion Gap 14 (6-14) Blood Urea Nitrogen 58 mg/dL (8-26) Creatinine 2.3 mg/dL (0.7-1.3) Estimated GFR (Cockcroft-Gault) 32.6 Glucose Level 117 mg/dL (70-99) Calcium Level 8.7 mg/dL (8.5-10.1) Phosphorus Level 4.1 mg/dL (2.6-4.7) Albumin 2.3 g/dL (3.4-5.0) Laboratory Tests Test 09/04/20 17:32 09/05/20 06:40 09/05/20 08:34 09/05/20 12:13 Glucose (Fingerstick) 163 mg/dL (70-99) 100 mg/dL (70-99) 115 mg/dL (70-99) Prothrombin Time 40.6 SEC (11.7-14.0) Prothromb Time International Ratio 4.1 (0.8-1.1) Sodium Level 146 mmol/L (136-145) Potassium Level 3.4 mmol/L (3.5-5.1) Chloride Level 110 mmol/L (98-107) Carbon Dioxide Level 22 mmol/L (21-32) Anion Gap 14 (6-14) Blood Urea Nitrogen 58 mg/dL (8-26) Creatinine 2.3 mg/dL (0.7-1.3) Estimated GFR (Cockcroft-Gault) 32.6 Glucose Level 117 mg/dL (70-99) Calcium Level 8.7 mg/dL (8.5-10.1) Phosphorus Level 4.1 mg/dL (2.6-4.7) Albumin 2.3 g/dL (3.4-5.0) Microbiology 09/03/20 Blood Culture - Preliminary, Resulted NO GROWTH AFTER 1 DAY Medications Current Medications Furosemide (Lasix) 40 mg 1X ONCE IVP Last administered on 09/03/20at 21:07; Start 09/03/20 at 21:00; Stop 09/03/20 at 21:01; Status DC Piperacillin Sod/ Tazobactam Sod 3.375 gm/Sodium Chloride 50 ml @ 100 mls/hr 1X ONCE IV Last administered on 09/03/20at 21:08; Start 09/03/20 at 21:00; Stop 09/03/20 at 21:29; Status DC Ondansetron HCl (Zofran) 4 mg PRN Q8HRS PRN IV NAUSEA/VOMITING; Start 09/03/20 at 21:00; Stop 09/04/20 at 20:59; Status DC Morphine Sulfate (Morphine Sulfate) 2 mg PRN Q2HR PRN IV PAIN; Start 09/03/20 at 21:00; Stop 09/04/20 at 20:59; Status DC Acetaminophen (Tylenol) 650 mg PRN Q4HRS PRN PO FEVER > 100.3'F; Start 09/03/20 at 21:00; Stop 09/04/20 at 20:59; Status DC Ascorbic Acid (Vitamin C) 250 mg DAILY PO Last administered on 09/05/20at 09:05; Start 09/04/20 at 09:00 Aspirin (Aspirin Chewable) 81 mg BID PO Last administered on 09/05/20 09:05; Start 09/04/20 at 09:00 Atorvastatin Calcium (Lipitor) 40 mg DAILY PO Last administered on 09/05/20at 09:05; Start 09/04/20 at 09:00 Bumetanide (Bumex) 1 mg BID92 PO ; Start 09/04/20 at 09:00; Stop 09/04/20 at 07:53; Status DC Digoxin (Lanoxin) 125 mcg DAILY PO ; Start 09/04/20 at 09:00; Stop 09/04/20 at 07:47; Status DC Docusate Sodium (Colace) 100 mg TID PO Last administered on 09/05/20 09:06; Start 09/04/20 at 09:00 Acetaminophen/ Hydrocodone Bitart (Lortab 5325) 1 tab PRN Q6HRS PRN PO PAIN Last administered on 09/04/20at 22:54; Start 09/03/20 at 22:15 Metoprolol Tartrate (Lopressor) 100 mg DAILY PO ; Start 09/04/20 at 09:00; Stop 09/04/20 at 07:29; Status DC Warfarin Sodium (Coumadin Per Pharmacy) 1 each PRN DAILY PRN MC SEE COMMENTS Last administered on 09/05/20 09:05; Start 09/03/20 at 22:15 Piperacillin Sod/ Tazobactam Sod (Zosyn Per Pharmacy) 1 each PRN DAILY PRN MC SEE COMMENTS; Start 09/03/20 at 22:15 Albuterol/ Ipratropium (Duoneb) 3 ml RTQID NEB Last administered on 09/05/20at 11:36; Start 09/04/20 at 08:00 Prednisone (Prednisone) 40 mg 1X ONCE PO Last administered on 09/03/20at 22:41; Start 09/03/20 at 22:15; Stop 09/03/20 at 22:21; Status DC Insulin Human Lispro (HumaLOG) 0-7 UNITS TIDWMEALS SQ Last administered on 09/04/20at 12:32; Start 09/04/20 at 08:00 Dextrose (Dextrose 50%-Water Syringe) 12.5 gm PRN Q15MIN PRN IV SEE COMMENTS; Start 09/03/20 at 22:15 Piperacillin Sod/ Tazobactam Sod 3.375 gm/Sodium Chloride 50 ml @ 100 mls/hr Q 6HRS IV Last administered on 09/05/20at 05:28; Start 09/04/20 at 06:00 Warfarin Sodium (Coumadin - No Dose Today) 1 each 1X WARF ONCE MC Last administered on 09/04/20at 16:00; Start 09/04/20 at 16:00; Stop 09/04/20 at 16:01; Status DC Bumetanide (Bumex) 2.5 mg BID92 IV Last administered on 09/04/20at 15:23; Start 09/04/20 at 09:00; Stop 09/05/20 at 07:46; Status DC Lactobacillus Rhamnosus (Culturelle) 1 cap BID PO Last administered on 09/05/20at 09:05; Start 09/04/20 at 21:00 Tamsulosin HCl (Flomax) 0.4 mg QHS PO ; Start 09/05/20 at 21:00 Bumetanide (Bumex) 1 mg BID92 IV Last administered on 09/05/20at 09:04; Start 09/05/20 at 09:00 Potassium Bicarbonate (Potassium Effervescent Tablet) 40 meq 1X ONCE PO Last administered on 09/05/20at 09:06; Start 09/05/20 at 08:00; Stop 09/05/20 at 08:01; Status DC Warfarin Sodium (Coumadin - No Dose Today) 1 each 1X WARF ONCE MC ; Start 09/05 at 16:00; Stop 09/05/20 at 16:01 Active Scripts Active [place] 5-325 Tablet (Acetaminophen/Hydrocodone Bitart) 1 Each Tablet 7.5 Mg PO PRN Q6HRS PRN 6 Days LAST DOSE GIVEN: Reported Bumetanide 1 Mg Tablet 1 Mg PO BID Colace (Docusate Sodium) 100 Mg Capsule 1 Cap PO TID Metamucil Powder (Psyllium Seed (with Sugar)) 575 Gm Powder 575 Gm PO DAILY Atorvastatin Calcium 40 Mg Tablet 1 Tab PO DAILY Metoprolol Tartrate 100 Mg Tablet 100 Mg PO DAILY Tamsulosin Hcl 0.4 Mg Cap.er.24h 0.4 Mg PO HS DAILY Vitamin C (Ascorbic Acid) 500 Mg Tablet 250 Mg PO DAILY Warfarin Sodium 5 Mg Tablet 1.5 Tab PO QWE Warfarin Sodium 5 Mg Tablet 1 Tab PO DAILY EXCEPT SUN. Aspirin 81 Mg Tab.chew 81 Mg PO BID Lanoxin (Digoxin) 125 Mcg Tablet 125 Mcg PO DAILY Vitals/I & O Vital Sign - Last 24 Hours 09/04/20 09/04/20 09/04/20 09/04/20 15:00 15:54 19:15 20:00 Temp 97.6 97.5 97.6 97.5 Pulse 64 67 Resp 16 21 B/P (MAP) 102/44 (63) 119/47 (71) Pulse Ox 96 100 92 O2 Delivery Room Air Room Air Room Air Room Air 09/04/20 09/04/20 09/04/20 09/04/20 20:57 22:54 23:24 23:35 Temp 97.4 97.4 Pulse 82 Resp 18 19 20 B/P (MAP) 109/52 (71) Pulse Ox 100 100 94 94 O2 Delivery Room Air Room Air Room Air Room Air 09/05/20 09/05/20 09/05/20 09/05/20 03:00 07:00 07:41 07:45 Temp 97.1 96.3 97.1 96.3 Pulse 70 64 Resp 21 18 B/P (MAP) 114/47 (69) 114/54 (74) Pulse Ox 93 97 O2 Delivery Room Air Nasal Cannula Room Air Room Air 09/05/20 09/05/20 11:00 11:38 Temp 97.6 97.6 Pulse 50 Resp 16 B/P (MAP) 105/45 (65) Pulse Ox 99 O2 Delivery Room Air Room Air Intake and Output 09/04/20 09/04/20 09/05/20 15:00 23:00 07:00 Intake Total 430 ml 230 ml 150 ml Output Total 500 ml 200 ml 200 ml Balance -70 ml 30 ml -50 ml Justifications for Admission Other Justification MAGI JEAN-BAPTISTE MD September 05, 2020 13:31
[2020-09-05 15:00] VITALS: BP 113/58
[2020-09-05] MEDS: HYDROcodone/APAP 5/325MG 1 TAB TABLET PO PRN (18:15)
[2020-09-05 19:10] VITALS: BP 113/67
--- NOTE | 2020-09-05 19:20 | NUR ---
Pt in bed assessment completed vss poc explained pt c/o back pain pt medicated prior pt reoriented to surroundings and call light placed in reach be alarm set will resume care and continue to monitor pt.
[2020-09-05] MEDS: TAMSULOSIN 0.4 MG CAP.ER.24H. PO SCH (21:43)
[2020-09-05 22:40] VITALS: BP 100/42
[2020-09-06] MEDS: HYDROcodone/APAP 5/325MG 1 TAB TABLET PO PRN ×4 (01:02→20:52)
[2020-09-06 02:40] VITALS: BP 103/50
[2020-09-06] MEDS: PIPERACILLIN/TAZOBACTAM 3.375 GM in IV NORMAL SALINE 50ML 50 ML IV SCH ×4 (05:49→23:07)
[2020-09-06 07:00] VITALS: BP 118/52
[2020-09-06] MEDS: IPRATRPIUM/ALBUTEROL 0.5/2.5MG 3 ML NEBU. NEB SCH ×4 (07:14→20:00)
[2020-09-06] MEDS: INSULIN LISPRO 300 UNITS/3 ML VIAL. SQ SCH ×3 (08:00→16:30)
[2020-09-06] MEDS: ASCORBIC ACID 500 MG TABLET PO SCH (08:13)
[2020-09-06] MEDS: LACTOBACILLUS RHAMNOSUS GG 1 CAPSULE. PO SCH ×2 (08:13→20:47)
[2020-09-06] MEDS: ASPIRIN CHEWABLE 81 MG TABLET. PO SCH ×2 (08:14→20:47)
[2020-09-06] MEDS: ATORVASTATIN CALCIUM 40 MG TABLET. PO SCH (08:14)
[2020-09-06] MEDS: DOCUSATE SODIUM 100 MG CAPSULE. PO SCH ×3 (08:14→20:47)
[2020-09-06] MEDS: BUMETANIDE 1 MG/4 ML VIAL. IV SCH ×2 (08:15→12:19)
[2020-09-06 08:37] LABS: CALCIUM 8.7 mg/dL (8.5-10.1); CREATININE 2.3 mg/dL (0.7-1.3); GFR 32.6; MAGNESIUM 2.2 mg/dL (1.8-2.4)
--- NOTE | 2020-09-06 09:28 | PDOC ---
PROGRESS NOTES Date of Service: DATE: 09/06/20 TIME: 09:27 Chief Complaint Chief Complaint impression Acute on chronic combined systolic and diastolic heart failure. We will diurese with intravenous Bumex. 2D echo in September 2019 showed LVEF 40%. Coronary artery disease: Patient has known chronic total occlusion of LAD with collaterals, presently stable and chest pain-free. Lexiscan nuclear stress test in March 2020 showed large inferior infarct without any significant ischemia. Continue current secondary prevention measures. Sick sinus syndrome s/p permanent pacemaker implantation with more recent generator change. Recent device check showed normal function. He denied any syncope or near syncope. Permanent atrial fibrillation: Telemetry showed demand pacing. Patient on warfarin for stroke prophylaxis. Check PT/INR. Hypertension - Controlled. Will back off on his BB. He is actually on 100mg metoprolol tartrate Hyperlipidemia - Continue statin Diabetes mellitus type 2 - diet controlled, A1c previously 5.8 Severe Protein calorie malnutrition - severe given his edema and albumin. 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 Normal LV systolic function. EF 60% plan FEN - Cardiac ADA diet PPX - warfarin CODE - FULL Dispo - inpatient CVC for CHF exacerbation History of Present Illness History of Present Illness Mr Rivero is an 89yo M w/ PMHx DM2, HLD, HTN, afib, SSS s/p PPM, CAD, chronic systolic CHF who presented to ED c/o for weakness and dyspnea. Also complains of dyspnea worsening over weeks, with a few days of noted LE edema is worse with cough in the morning that is productive of white sputum. he has cough at times, He denied any chest pain, palpitations or syncope. Given 1 dose iv lasix in ED 40mg, < 500 uop after, still feeling short of breath. He follows with Dr. Santoyo and has been recently changed to Bumex last month. Chest radiograph with interstitial edema. Labs with WBC 27.3, Hb 10.3, platelets 454, NA 145, K4.7, BUN 58, CR 2.1, INR 3.2 TSH 5.5, digoxin level 2.2, albumin 2.7, bilirubin 2.2, AST 56 ALT 12 alkali ne phosphatase 138 NT proBNP 31,348 Admitted for further treatment. 09/04: Afebrile. WBC still high. Reasonably good urine output. A little confused Febrile. 1.3 L urine output. Still with very swollen lower extremities. No chest pain little bit short of breath. Not on O2 today. 09-06 Still with very swollen lower extremities. No chest pain little bit short of breath. Acute on chronic combined systolic and diastolic heart failure. We will diurese with intravenous Bumex. 2D echo in September 2019 showed LVEF 40%. Coronary artery disease: Patient has known chronic total occlusion of LAD with collaterals, presently stable and chest pain-free. Lexiscan nuclear stress test in March 2020 showed large inferior infarct without any significant ischemia. Continue current secondary prevention measures. Sick sinus syndrome s/p permanent pacemaker implantation with more recent generator change. Recent device check showed normal function. He denied any syncope or near syncope. Permanent atrial fibrillation: Telemetry showed demand pacing. Patient on warfarin for stroke prophylaxis. Check PT/INR. Hypertension - Controlled. Will back off on his BB. He is actually on 100mg metoprolol tartrate Hyperlipidemia - Continue statin Diabetes mellitus type 2 - diet controlled, A1c previously 5.8 Severe Protein calorie malnutrition - severe given his edema and albumin. Erin luo to see D/W RN Vitals Vitals Vital Signs Date Time Temp Pulse Resp B/P (MAP) Pulse Ox O2 Delivery O2 Flow Rate FiO2 09/06/20 08:44 20 98 Room Air 09/06/20 07:00 99.9 71 118/52 (74) 99.9 Physical Exam Physical Exam HEENT: Atraumatic, EOMI, Mucous membr. moist/pink, Other (upper dentures) Lungs: Other (very limited volume breaths, no wheeze, distant sounds) Abdomen: Normal bowel sounds, Soft Extremities: No clubbing, Other (2+ edema, no breakdown) Skin: No rashes, No breakdown, No significant lesion Neuro: Normal speech, Normal tone, Sensation intact General: Alert, Cooperative, mild distress Heart: Regular rate Lungs: Crackles Abdomen: Normal bowel sounds Extremities: No clubbing, Other (2+ edema, no breakdown) Skin: No rashes, No breakdown, No significant lesion Labs LABS APPROVED REPORT Test Type: Pharmacological Stress Nurse/Tech: Sophia Palacios RN Test Indications: CAD Cardiac History: A fib,HTN, PPM, LA, DM Medications: See Electronic Medical Record Medical History: See Electronic Medical Record Resting ECG: V paced Resting Heart Rate: 50 bpm Resting Blood Pressure: 117/58mmHg Pretest Chest Pain: None Nurse/Tech Notes lungs CTA, S1S2 Consent: The procedure was explained to the patient in lay terms. Informed consent was witnessed. Timeout was entered into Expert. History and Stress Test performed by RT Kirk (R) (N) Pharm. Details Pharmacologic stress testing was performed using 0.4mg per 5ml of regadenoson given intravenously over 7-10 seconds. Stress Symptoms No chest pain or symptoms. POST EXERCISE Reason for Termination: Infusion complete Max HR: 79 bpm Max Blood Pressure: 119/61mmHg Blood Pressure response to exercise: Normal blood pressure response during stress. Heart Rate response to exercise: normal response Chest Pain: No. Arrhythmia: No. ST Change: Yes. ST depression noted in pt intrinsic beats in lead II, III, AVF. no chest pain INTERPRETATION Stress EKG Conclusion: Non diagnostic EKG due to pacing artifact. Imaging Protocol IMAGE PROTOCOL: Rest Tc-99m/stress Tc-99m 1 day Rest: Stress: Viability: Radiopharm. Tc99m Sestamibi Tc99m Sestamibi Dose 11mCi 31.4mCi Duration 13min. 13min. Img Date 03/12/2020 03/12/2020 Inj-Img Time 50min. 60min. Rest Admin Site: IV - Right Hand General Laborer: ZAINA Fairchild, RYAN (R)(N) Stress Admin Site: IV - Right Hand General Laborer: RT Kirk (R)(N) STRESS DATA End Diast. Vol. 174.0ml LVEDV index BSA 89.0ml End Syst. Vol. 59.0ml LVESV index BSA 30.0ml Myocardial Mass 173.0g Eject. Fraction 66.0% Stress Scores Regional WT 0.00 Summed WT 1.00 Regional WM 0.00 Summed WM 4.00 LV Perfusion THere is a large sized FIXED basal to distal inferior perfusion defect suggestive of prior infarct without any signifcant ischemia. Wall Motion Normal LV systolic function. EF 60% LV Perf. Quant 17 Seg. SSS 14.00 17 Seg. SRS 15.00 17 Seg. SDS 1.00 Stress Defect Extent (% LAD) 28.10 Rest Defect Extent (% LAD) 20.60 Rev. Defect Extent (% LAD) 11.30 Stress Defect Extent (% LCX) 33.80 Rest Defect Extent (% LCX) 31.30 Rev. Defect Extent (% LCX) 0.00 Stress Defect Extent (% RCA) 23.30 Rest Defect Extent (% RCA) 47.80 Rev. Defect Extent (% RCA) 0.00 Stress Defect Extent (% DARI) 32.00 Rest Defect Extent (% DARI) 33.00 Rev. Defect Extent (% DARI) 7.60 Other Information Quality:Average Risk Assessment: Moderate Risk Conclusion 1. Non-diagnostic EKG due to pacing artifact 2. 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 3. Normal LV systolic function. EF 60% 4. Moderate risk for future CV events. Signed by : Chong Naranjo, Electronically Approved : 03/12/2020 14:08:36 DICTATED and SIGNED BY: CHONG NARANJO MD Laboratory Tests Test 09/05/20 12:13 09/05/20 17:08 09/05/20 21:14 09/06/20 07:30 Glucose (Fingerstick) 115 mg/dL (70-99) 91 mg/dL (70-99) 94 mg/dL (70-99) Sodium Level 146 mmol/L (136-145) Potassium Level 4.0 mmol/L (3.5-5.1) Chloride Level 110 mmol/L (98-107) Carbon Dioxide Level 23 mmol/L (21-32) Anion Gap 13 (6-14) Blood Urea Nitrogen 55 mg/dL (8-26) Creatinine 2.3 mg/dL (0.7-1.3) Estimated GFR (Cockcroft-Gault) 32.6 Glucose Level 93 mg/dL (70-99) Calcium Level 8.7 mg/dL (8.5-10.1) Magnesium Level 2.2 mg/dL (1.8-2.4) Test 09/06/20 07:34 Glucose (Fingerstick) 93 mg/dL (70-99) Assessment and Plan Assessmemt and Plan Problems Medical Problems: (1) CHF (congestive heart failure) Status: Acute Comment Review of Relevant I have reviewed the following items tiffany (where applicable) has been applied. Labs Laboratory Tests Test 09/04/20 12:11 09/04/20 17:32 09/05/20 06:40 09/05/20 08:34 Glucose (Fingerstick) 215 mg/dL (70-99) 163 mg/dL (70-99) 100 mg/dL (70-99) Prothrombin Time 40.6 SEC (11.7-14.0) Prothromb Time International Ratio 4.1 (0.8-1.1) Sodium Level 146 mmol/L (136-145) Potassium Level 3.4 mmol/L (3.5-5.1) Chloride Level 110 mmol/L (98-107) Carbon Dioxide Level 22 mmol/L (21-32) Anion Gap 14 (6-14) Blood Urea Nitrogen 58 mg/dL (8-26) Creatinine 2.3 mg/dL (0.7-1.3) Estimated GFR (Cockcroft-Gault) 32.6 Glucose Level 117 mg/dL (70-99) Calcium Level 8.7 mg/dL (8.5-10.1) Phosphorus Level 4.1 mg/dL (2.6-4.7) Albumin 2.3 g/dL (3.4-5.0) Test 09/05/20 12:13 09/05/20 17:08 09/05/20 21:14 09/06/20 07:30 Glucose (Fingerstick) 115 mg/dL (70-99) 91 mg/dL (70-99) 94 mg/dL (70-99) Sodium Level 146 mmol/L (136-145) Potassium Level 4.0 mmol/L (3.5-5.1) Chloride Level 110 mmol/L (98-107) Carbon Dioxide Level 23 mmol/L (21-32) Anion Gap 13 (6-14) Blood Urea Nitrogen 55 mg/dL (8-26) Creatinine 2.3 mg/dL (0.7-1.3) Estimated GFR (Cockcroft-Gault) 32.6 Glucose Level 93 mg/dL (70-99) Calcium Level 8.7 mg/dL (8.5-10.1) Magnesium Level 2.2 mg/dL (1.8-2.4) Test 09/06/20 07:34 Glucose (Fingerstick) 93 mg/dL (70-99) Laboratory Tests Test 09/05/20 12:13 09/05/20 17:08 09/05/20 21:14 09/06/20 07:30 Glucose (Fingerstick) 115 mg/dL (70-99) 91 mg/dL (70-99) 94 mg/dL (70-99) Sodium Level 146 mmol/L (136-145) Potassium Level 4.0 mmol/L (3.5-5.1) Chloride Level 110 mmol/L (98-107) Carbon Dioxide Level 23 mmol/L (21-32) Anion Gap 13 (6-14) Blood Urea Nitrogen 55 mg/dL (8-26) Creatinine 2.3 mg/dL (0.7-1.3) Estimated GFR (Cockcroft-Gault) 32.6 Glucose Level 93 mg/dL (70-99) Calcium Level 8.7 mg/dL (8.5-10.1) Magnesium Level 2.2 mg/dL (1.8-2.4) Test 09/06/20 07:34 Glucose (Fingerstick) 93 mg/dL (70-99) Microbiology 09/03/20 Blood Culture - Preliminary, Resulted NO GROWTH AFTER 2 DAYS Medications Current Medications Furosemide (Lasix) 40 mg 1X ONCE IVP Last administered on 09/03/20at 21:07; Start 09/03/20 at 21:00; Stop 09/03/20 at 21:01; Status DC Piperacillin Sod/ Tazobactam Sod 3.375 gm/Sodium Chloride 50 ml @ 100 mls/hr 1X ONCE IV Last administered on 09/03/20at 21:08; Start 09/03/20 at 21:00; Stop 09/03/20 at 21:29; Status DC Ondansetron HCl (Zofran) 4 mg PRN Q8HRS PRN IV NAUSEA/VOMITING; Start 09/03/20 at 21:00; Stop 09/04/20 at 20:59; Status DC Morphine Sulfate (Morphine Sulfate) 2 mg PRN Q2HR PRN IV PAIN; Start 09/03/20 at 21:00; Stop 09/04/20 at 20:59; Status DC Acetaminophen (Tylenol) 650 mg PRN Q4HRS PRN PO FEVER > 100.3'F; Start 09/03/20 at 21:00; Stop 09/04/20 at 20:59; Status DC Ascorbic Acid (Vitamin C) 250 mg DAILY PO Last administered on 09/06/20at 08:13; Start 09/04/20 at 09:00 Aspirin (Aspirin Chewable) 81 mg BID PO Last administered on 09/06/20at 08:14; Start 09/04/20 at 09:00 Atorvastatin Calcium (Lipitor) 40 mg DAILY PO Last administered on 09/06/20at 08:14; Start 09/04/20 at 09:00 Bumetanide (Bumex) 1 mg BID92 PO ; Start 09/04/20 at 09:00; Stop 09/04/20 at 07:53; Status DC Digoxin (Lanoxin) 125 mcg DAILY PO ; Start 09/04/20 at 09:00; Stop 09/04/20 at 07:47; Status DC Docusate Sodium (Colace) 100 mg TID PO Last administered on 09/06/20at 08:14; Start 09/04/20 at 09:00 Acetaminophen/ Hydrocodone Bitart (Lortab 5/325) 1 tab PRN Q6HRS PRN PO PAIN Last administered on 09/06/20at 08:14; Start 09/03/20 at 22:15 Metoprolol Tartrate (Lopressor) 100 mg DAILY PO ; Start 09/04/20 at 09:00; Stop 09/04/20 at 07:29; Status DC Warfarin Sodium (Coumadin Per Pharmacy) 1 each PRN DAILY PRN MC SEE COMMENTS Last administered on 09/05/20at 09:05; Start 09/03/20 at 22:15 Piperacillin Sod/ Tazobactam Sod (Zosyn Per Pharmacy) 1 each PRN DAILY PRN MC SEE COMMENTS; Start 09/03/20 at 22:15 Albuterol/ Ipratropium (Duoneb) 3 ml RTQID NEB Last administered on 09/06/20at 07:14; Start 09/04/20 at 08:00 Prednisone (Prednisone) 40 mg 1X ONCE PO Last administered on 09/03/20at 22:41; Start 09/03/20 at 22:15; Stop 09/03/20 at 22:21; Status DC Insulin Human Lispro (HumaLOG) 0-7 UNITS TIDWMEALS SQ Last administered on 09/04/20at 12:32; Start 09/04/20 at 08:00 Dextrose (Dextrose 50%-Water Syringe) 12.5 gm PRN Q15MIN PRN IV SEE COMMENTS; Start 09/03/20 at 22:15 Piperacillin Sod/ Tazobactam Sod 3.375 gm/Sodium Chloride 50 ml @ 100 mls/hr Q6HRS IV Last administered on 09/06/20at 05:49; Start 09/04/20 at 06:00 Warfarin Sodium (Coumadin - No Dose Today) 1 each 1X WARF ONCE MC Last administered on 09/04/20at 16:00; Start 09/04/20 at 16:00; Stop 09/04/20 at 16:01; Status DC Bumetanide (Bumex) 2.5 mg BID92 IV Last administered on 09/04/20at 15:23; Start 09/04/20 at 09:00; Stop 09/05/20 at 07:46; Status DC Lactobacillus Rhamnosus (Culturelle) 1 cap BID PO Last administered on 09/06/20at 08:13; Start 09/04/20 at 21:00 Tamsulosin HCl (Flomax) 0.4 mg QHS PO Last administered on 09/05/20at 21:43; Start 09/05/20 at 21:00 Bumetanide (Bumex) 1 mg BID92 IV Last administered on 09/06/20at 08:15; Start 09/05/20 at 09:00 Potassium Bicarbonate (Potassium Effervescent Tablet) 40 meq 1X ONCE PO Last administered on 09/05/20at 09:06; Start 09/05/20 at 08:00; Stop 09/05/20 at 08:01; Status DC Warfarin Sodium (Coumadin - No Dose Today) 1 each 1X WARF ONCE MC Last administered on 09/05/20at 15:58; Start 09/05/20 at 16:00; Stop 09/05/20 at 16:01; Status DC Active Scripts Active [place] 5-325 Tablet (Acetaminophen/Hydrocodone Bitart) 1 Each Tablet 7.5 Mg PO PRN Q6HRS PRN 6 Days LAST DOSE GIVEN: Reported Bumetanide 1 Mg Tablet 1 Mg PO BID Colace (Docusate Sodium) 100 Mg Capsule 1 Cap PO TID Metamucil Powder (Psyllium Seed (with Sugar)) 575 Gm Powder 575 Gm PO DAILY Atorvastatin Calcium 40 Mg Tablet 1 Tab PO DAILY Metoprolol Tartrate 100 Mg Tablet 100 Mg PO DAILY Tamsulosin Hcl 0.4 Mg Cap.er.24h 0.4 Mg PO HS DAILY Vitamin C (Ascorbic Acid) 500 Mg Tablet 250 Mg PO DAILY Warfarin Sodium 5 Mg Tablet 1.5 Tab PO QWE Warfarin Sodium 5 Mg Tablet 1 Tab PO DAILY EXCEPT WED. Aspirin 81 Mg Tab.chew 81 Mg PO BID Lanoxin (Digoxin) 125 Mcg Tablet 125 Mcg PO DAILY Vitals/I & O Vital Sign - Last 24 Hours 09/05/20 09/05/20 09/05/20 09/05/20 11:00 11:38 15:00 18:15 Temp 97.6 97.6 97.6 97.6 Pulse 50 50 Resp 16 16 18 B/P (MAP) 105/45 (65) 113/58 (76) Pulse Ox 99 99 96 O2 Delivery Room Air Room Air Room Air Room Air 09/05/20 09/05/20 09/05/20 09/05/20 18:45 19:10 19:20 20:11 Temp 97.3 97.3 Pulse 78 Resp 18 18 B/P (MAP) 113/67 (82) Pulse Ox 96 96 O2 Delivery Room Air Room Air Room Air Room Air 09/05/20 09/06/20 09/06/20 09/06/20 22:40 01:02 01:32 02:40 Temp 98.1 98.0 98.1 98.0 Pulse 90 72 Resp 18 18 18 18 B/P (MAP) 100/42 (61) 103/50 (67) Pulse Ox 99 96 96 92 O2 Delivery Room Air Room Air Room Air Room Air 09/06/20 09/06/20 09/06/20 09/06/20 07:00 07:14 07:54 08:14 Temp 99.9 99.9 Pulse 71 Resp 22 20 B/P (MAP) 118/52 (74) Pulse Ox 99 99 97 O2 Delivery Room Air Room Air Room Air Room Air 09/06/20 08:44 Resp 20 Pulse Ox 98 O2 Delivery Room Air Intake and Output 509/05/20 09/06/20 15:00 23:00 07:00 Intake Total 580 ml 180 ml 120 ml Output Total 200 ml 600 ml Balance 380 ml -420 ml 120 ml Justicifation of Admission Dx: Justifications for Admission: Justification of Admission Dx: Yes JAYLIN LAGUERRE MD September 06, 2020 09:28
--- NOTE | 2020-09-06 10:52 | PDOC ---
PULMONARY PROGRESS NOTES DATE: 09/06/20 TIME: 10:52 Subjective PT. remains on room air no overnight concerns Vitals Vital Signs Date Time Temp Pulse Resp B/P (MAP) Pulse Ox O2 Delivery O2 Flow Rate FiO2 09/06/20 08:44 20 98 Room Air 09/06/20 07:00 99.9 71 118/52 (74) 99.9 ROS: No Nausea, No Chest Pain, No Abdominal Pain, No Increase Cough General: Alert, No acute distress Lungs: Crackles (bases ) Cardiovascular: S1, S2 Abdomen: Soft, Non-tender Neuro Exam: Alert, Oriented Extremities: Other (edema) Skin: Warm, Dry Labs Laboratory Tests Test 09/04/20 12:11 09/04/20 17:32 09/05/20 06:40 09/05/20 08:34 Glucose (Fingerstick) 215 mg/dL (70-99) 163 mg/dL (70-99) 100 mg/dL (70-99) Prothrombin Time 40.6 SEC (11.7-14.0) Prothromb Time International Ratio 4.1 (0.8-1.1) Sodium Level 146 mmol/L (136-145) Potassium Level 3.4 mmol/L (3.5-5.1) Chloride Level 110 mmol/L (98-107) Carbon Dioxide Level 22 mmol/L (21-32) Anion Gap 14 (6-14) Blood Urea Nitrogen 58 mg/dL (8-26) Creatinine 2.3 mg/dL (0.7-1.3) Estimated GFR (Cockcroft-Gault) 32.6 Glucose Level 117 mg/dL (70-99) Calcium Level 8.7 mg/dL (8.5-10.1) Phosphorus Level 4.1 mg/dL (2.6-4.7) Albumin 2.3 g/dL (3.4-5.0) Test 09/05/20 12:13 09/05/20 17:08 09/05/20 21:14 09/06/20 07:30 Glucose (Fingerstick) 115 mg/dL (70-99) 91 mg/dL (70-99) 94 mg/dL (70-99) Sodium Level 146 mmol/L (136-145) Potassium Level 4.0 mmol/L (3.5-5.1) Chloride Level 110 mmol/L (98-107) Carbon Dioxide Level 23 mmol/L (21-32) Anion Gap 13 (6-14) Blood Urea Nitrogen 55 mg/dL (8-26) Creatinine 2.3 mg/dL (0.7-1.3) Estimated GFR (Cockcroft-Gault) 32.6 Glucose Level 93 mg/dL (70-99) Calcium Level 8.7 mg/dL (8.5-10.1) Magnesium Level 2.2 mg/dL (1.8-2.4) Test 09/06/20 07:34 Glucose (Fingerstick) 93 mg/dL (70-99) Laboratory Tests Test 09/05/20 12:13 09/05/20 17:08 09/05/20 21:14 09/06/20 07:30 Glucose (Fingerstick) 115 mg/dL (70-99) 91 mg/dL (70-99) 94 mg/dL (70-99) Sodium Level 146 mmol/L (136-145) Potassium Level 4.0 mmol/L (3.5-5.1) Chloride Level 110 mmol/L (98-107) Carbon Dioxide Level 23 mmol/L (21-32) Anion Gap 13 (6-14) Blood Urea Nitrogen 55 mg/dL (8-26) Creatinine 2.3 mg/dL (0.7-1.3) Estimated GFR (Cockcroft-Gault) 32.6 Glucose Level 93 mg/dL (70-99) Calcium Level 8.7 mg/dL (8.5-10.1) Magnesium Level 2.2 mg/dL (1.8-2.4) Test 09/06/20 07:34 Glucose (Fingerstick) 93 mg/dL (70-99) Medications Active Scripts Medications Dose Route/Sig Max Daily Dose Days Date Category Dose Instructions Bumetanide 1 Mg Tablet 1 Mg PO BID 07/28/20 Reported [place] 5-325 Tablet (Acetaminophen/Hydrocodone Bitart) 1 Each Tablet 7.5 Mg PO PRN Q6HRS PRN 6 09/20/18 Rx LAST DOSE GIVEN: Colace (Docusate Sodium) 100 Mg Capsule 1 Cap PO TID 09/09/18 Reported Metamucil Powder (Psyllium Seed (with Sugar)) 575 Gm Powder 575 Gm PO DAILY 09/09/18 Reported Atorvastatin Calcium 40 Mg Tablet 1 Tab PO DAILY 08/12/18 Reported Metoprolol Tartrate 100 Mg Tablet 100 Mg PO DAILY 11/08/17 Reported Tamsulosin Hcl 0.4 Mg Cap.er.24h 0.4 Mg PO HS DAILY 11/08/17 Reported Vitamin C (Ascorbic Acid) 500 Mg Tablet 250 Mg PO DAILY 05/08/14 Reported Warfarin Sodium 5 Mg Tablet 1.5 Tab PO QWE 04/18/14 Reported Warfarin Sodium 5 Mg Tablet 1 Tab PO DAILY EXCEPT WED. 04/18/14 Reported Aspirin 81 Mg Tab.chew 81 Mg PO BID 08/22/13 Reported Lanoxin (Digoxin) 125 Mcg Tablet 125 Mcg PO DAILY 08/22/13 Reported Impression . IMPRESSION: 1. Dyspnea secondary to acute systolic and diastolic congestive heart failure 2. Abnormal chest x-ray. 3. 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 4. Cardiomyopathy. 5. 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 6. Obstructive sleep apnea-hypopnea syndrome, CPAP noncompliant. 7. Paroxysmal atrial fibrillation, on Coumadin. 8. Acute kidney injury/chronic kidney disease. Plan . RECOMMENDATIONS: Titrate FiO2 to keep O2 saturation 92%, currently yon room air NEBS Follow cardiology recs Follow nephrology recs -- bumex currently on hold-- monitor renal function Previously discussed with him regarding obstructive sleep apnea-hypopnea syndrome, the importance of treatment. If untreated, increased cardiovascular and QUAD STAYER morbidity and mortality. He understood, but does not want to use CPAP. He understands the risks of not treating obstructive sleep apnea-hypopnea syndrome. Continue Coumadin. Keep INR between 2 and 3. Continue antibiotic, zosyn DVT/GI PPX D/W BREN ONTIVEROS MD September 06, 2020 10:52
[2020-09-06 11:05] VITALS: BP 116/53
[2020-09-06 12:05] LABS: PROTHROMBIN TIME PATIENT 36.3 SEC (11.7-14.0)
--- NOTE | 2020-09-06 12:12 | PDOC ---
DATE OF SERVICE DATE: 09/06/20 TIME: 12:12 SUBJECTIVE ROS Stable, On RA ,On Bumex IV BID per primary OBJECTIVE Vital Signs Vital Signs Date Time Temp Pulse Resp B/P (MAP) Pulse Ox O2 Delivery O2 Flow Rate FiO2 09/06/20 11:36 97 Room Air 09/06/20 11:05 99.6 73 20 116/53 (74) 99.6 I & 0 Intake and Output 09/06/20 07:00 Intake Total 880 ml Output Total 800 ml Balance 80 ml Intake Oral 880 ml Output Urine Total 800 ml # Voids 7 # Bowel Movements 1 PHYSICAL EXAM Physical Exam Gen NAD , sitting up in chair eating Lunch HEEN OM moist, hard of hearing Neck Supple Lungs decreased bases, Non labored CV S1`s2 Abd Soft, NT Neuro grossly Normal Skin No rash No CVA OR SP tenderness, No gaytan DIAGNOSIS/ASSESSMENT Assessment & Plan DION - suspect Cardiorenal , Cr elevated in July - admitted for CHF, prior labs in [facility] records with normal baseline Cr . Cr up to 2.3 , stable, monitor, supportive care, Strict I/O (? Accyurate) ,Daily standing wt Avoid nephrotoxins. Hold Bumex this evening and in morning as well if stable Resp status Acute on chronic systolic heart failure- Symptoms improved post diuresis overnight. Echocardiogram 2020 ejection fraction of 40%. Exacerbation of COPD. Atrial fibrillation. History of coronary artery disease. Diabetes mellitus Hypertension; controlled COMMENT/RELEVANT DATA Meds Current Medications Medications (Trade) Dose Ordered Sig/Rakesh Start Time Stop Time Status Last Admin Dose Admin Acetaminophen (Tylenol) 650 mg PRN Q4HRS PRN 09/03/20 21:00 09/04/20 20:59 DC Acetaminophen/ Hydrocodone Bitart (Lortab 5/325) 1 tab PRN Q6HRS PRN 09/03/20 22:15 09/06/20 08:14 1 TAB Albuterol/ Ipratropium (Duoneb) 3 ml RTQID 09/04/20 08:00 09/06/20 11:36 3 ML Ascorbic Acid (Vitamin C) 250 mg DAILY 09/04/20 09:00 09/06/20 08:13 250 MG Aspirin (Aspirin Chewable) 81 mg BID 09/04/20 09:00 09/06/20 08:14 81 MG Atorvastatin Calcium (Lipitor) 40 mg DAILY 09/04/20 09:00 09/06/20 08:14 40 MG Bumetanide (Bumex) 1 mg BID92 09/05/20 09:00 09/06/20 08:15 1 MG Dextrose (Dextrose 50%-Water Syringe) 12.5 gm PRN Q15MIN PRN 09/03/20 22:15 Digoxin (Lanoxin) 125 mcg DAILY 09/04/20 09:00 09/04/20 07:47 DC Docusate Sodium (Colace) 100 mg TID 09/04/20 09:00 09/06/20 08:14 100 MG Furosemide (Lasix) 40 mg 1X ONCE 09/03/20 21:00 09/03/20 21:01 DC 09/03/20 21:07 40 MG Insulin Human Lispro (HumaLOG) 0-7 UNITS TIDWMEALS 09/04/20 08:00 09/04/20 12:32 4 UNITS Lactobacillus Rhamnosus (Culturelle) 1 cap BID 09/04/20 21:00 09/06/20 08:13 1 CAP Metoprolol Tartrate (Lopressor) 100 mg DAILY 09/04/20 09:00 09/04/20 07:29 DC Morphine Sulfate (Morphine Sulfate) 2 mg PRN Q2HR PRN 09/03/20 21:00 09/04/20 20:59 DC Ondansetron HCl (Zofran) 4 mg PRN Q8HRS PRN 09/03/20 21:00 09/04/20 20:59 DC Piperacillin Sod/ Tazobactam Sod (Zosyn Per Pharmacy) 1 each PRN DAILY PRN 09/03/20 22:15 Piperacillin Sod/ Tazobactam Sod 3.375 gm/Sodium Chloride 50 ml @ 100 mls/hr Q6HRS 09/04/20 06:00 09/06/20 11:39 100 MLS/HR Potassium Bicarbonate (Potassium Effervescent Tablet) 40 meq 1X ONCE 09/05/20 08:00 09/05/20 08:01 DC 09/05/20 09:06 40 MEQ Prednisone (Prednisone) 40 mg 1X ONCE 09/03/20 22:15 09/03/20 22:21 DC 09/03/20 22:41 40 MG Tamsulosin HCl (Flomax) 0.4 mg QHS 09/05/20 21:00 09/05/20 21:43 0.4 MG Warfarin Sodium (Coumadin - No Dose Today) 1 each 1X WARF ONCE 09/05/20 16:00 09/05/20 16:01 DC 09/05/20 15:58 1 EACH Warfarin Sodium (Coumadin Per Pharmacy) 1 each PRN DAILY PRN 09/03/20 22:15 09/05/20 09:05 1 EACH Lab Laboratory Tests Test 09/05/20 12:13 09/05/20 17:08 09/05/20 21:14 09/06/20 07:30 Glucose (Fingerstick) 115 mg/dL (70-99) 91 mg/dL (70-99) 94 mg/dL (70-99) Sodium Level 146 mmol/L (136-145) Potassium Level 4.0 mmol/L (3.5-5.1) Chloride Level 110 mmol/L (98-107) Carbon Dioxide Level 23 mmol/L (21-32) Anion Gap 13 (6-14) Blood Urea Nitrogen 55 mg/dL (8-26) Creatinine 2.3 mg/dL (0.7-1.3) Estimated GFR (Cockcroft-Gault) 32.6 Glucose Level 93 mg/dL (70-99) Calcium Level 8.7 mg/dL (8.5-10.1) Magnesium Level 2.2 mg/dL (1.8-2.4) Test 09/06/20 07:34 09/06/20 11:22 09/06/20 11:30 Glucose (Fingerstick) 93 mg/dL (70-99) 88 mg/dL (70-99) Prothrombin Time 36.3 SEC (11.7-14.0) Prothromb Time International Ratio 3.6 (0.8-1.1) Results All relevant outside records, renal labs, imaging studies, telemetry/EKG's were reviewed. Justicifation of Admission Dx: Justifications for Admission: Justification of Admission Dx: Yes DEXTER ULLOA MD September 06, 2020 12:12
[2020-09-06] MEDS ORDERED: WARF2TAB96 PO ×2 (13:59)
--- NOTE | 2020-09-06 14:04 | NUR ---
Pharmacy Warfarin Dosing Note S: Pharmacy consulted to assist with anticoagulation therapy O: MAMTA MACIAS is a 89 year old M with Atrial Fibrillation LABS: Last INR: 3.6 Last HGB: 10.3 Last HCT: 34.7 Last PLT: 454 Home dosin mg Mon,Thurs; 4mg all other days Doses held since admission Vitamin K given: no Ongoing Drug Interactions: Zosyn A:INR of 3.6 is above desired range. Target range for this patient is: 2 - 3 P: HOLD warfarin dose for 09/06 Bridge Therapy: None Next INR due 09/07/20 Pharmacy anticoagulation service will continue to follow. PARTHA DIAS [facility], 09/06/20 [id number]
[2020-09-06 15:03] VITALS: BP 121/62
--- NOTE | 2020-09-06 15:18 | PDOC ---
PROGRESS NOTES Date of Service DATE: 09/06/20 TIME: 15:16 Subjective Subjective Patient seen and examined Objective Objective Vital Signs Date Time Temp Pulse Resp B/P (MAP) Pulse Ox O2 Delivery O2 Flow Rate FiO2 09/06/20 15:10 97 Room Air 09/06/20 15:03 98.6 69 18 121/62 (81) 98.6 Intake and Output 09/06/20 07:00 Intake Total 880 ml Output Total 800 ml Balance 80 ml Intake Oral 880 ml Output Urine Total 800 ml # Voids 7 # Bowel Movements 1 Physical Exam Abdomen: Normal bowel sounds Heart: Regular rate General: mild distress Lungs: Other (Mildly decreased breath sounds) Assessment Assessment Problems Medical Problems: (1) CHF (congestive heart failure) Status: Acute 1. Acute on chronic systolic heart failure. The patient is mildly fatigued today. Echocardiogram last year showed an ejection fraction of 40%. We will continue present treatment. 2. Exacerbation of COPD. Being evaluated and treated by the pulmonary service. Improving. Continue as above. 3. Atrial fibrillation. Paced rhythm at this time. Continuing present treatment. Will check records on the patient's pacemaker. 4. History of coronary artery disease. Occluded LAD. No chest pain. Continuing present treatment. 5. Hyperlipidemia. Continue medications. 6. Diabetes mellitus. As per the primary service. 6. Chronic kidney disease. Followed by the renal service. Comment Review of Relevant I have reviewed the following items tiffany (where applicable) has been applied. Labs Laboratory Tests Test 09/04/20 17:32 09/05/20 06:40 09/05/20 08:34 09/05/20 12:13 Glucose (Fingerstick) 163 mg/dL (70-99) 100 mg/dL (70-99) 115 mg/dL (70-99) Prothrombin Time 40.6 SEC (11.7-14.0) Prothromb Time International Ratio 4.1 (0.8-1.1) Sodium Level 146 mmol/L (136-145) Potassium Level 3.4 mmol/L (3.5-5.1) Chloride Level 110 mmol/L (98-107) Carbon Dioxide Level 22 mmol/L (21-32) Anion Gap 14 (6-14) Blood Urea Nitrogen 58 mg/dL (8-26) Creatinine 2.3 mg/dL (0.7-1.3) Estimated GFR (Cockcroft-Gault) 32.6 Glucose Level 117 mg/dL (70-99) Calcium Level 8.7 mg/dL (8.5-10.1) Phosphorus Level 4.1 mg/dL (2.6-4.7) Albumin 2.3 g/dL (3.4-5.0) Test 09/05/20 17:08 09/05/20 21:14 09/06/20 07:30 09/06/20 07:34 Glucose (Fingerstick) 91 mg/dL (70-99) 94 mg/dL (70-99) 93 mg/dL (70-99) Sodium Level 146 mmol/L (136-145) Potassium Level 4.0 mmol/L (3.5-5.1) Chloride Level 110 mmol/L (98-107) Carbon Dioxide Level 23 mmol/L (21-32) Anion Gap 13 (6-14) Blood Urea Nitrogen 55 mg/dL (8-26) Creatinine 2.3 mg/dL (0.7-1.3) Estimated GFR (Cockcroft-Gault) 32.6 Glucose Level 93 mg/dL (70-99) Calcium Level 8.7 mg/dL (8.5-10.1) Magnesium Level 2.2 mg/dL (1.8-2.4) Test 09/06/20 11:22 09/06/20 11:30 Glucose (Fingerstick) 88 mg/dL (70-99) Prothrombin Time 36.3 SEC (11.7-14.0) Prothromb Time International Ratio 3.6 (0.8-1.1) Laboratory Tests Test 09/05/20 17:08 09/05/20 21:14 09/06/20 07:30 09/06/20 07:34 Glucose (Fingerstick) 91 mg/dL (70-99) 94 mg/dL (70-99) 93 mg/dL (70-99) Sodium Level 146 mmol/L (136-145) Potassium Level 4.0 mmol/L (3.5-5.1) Chloride Level 110 mmol/L (98-107) Carbon Dioxide Level 23 mmol/L (21-32) Anion Gap 13 (6-14) Blood Urea Nitrogen 55 mg/dL (8-26) Creatinine 2.3 mg/dL (0.7-1.3) Estimated GFR (Cockcroft-Gault) 32.6 Glucose Level 93 mg/dL (70-99) Calcium Level 8.7 mg/dL (8.5-10.1) Magnesium Level 2.2 mg/dL (1.8-2.4) Test 09/06/20 11:22 09/06/20 11:30 Glucose (Fingerstick) 88 mg/dL (70-99) Prothrombin Time 36.3 SEC (11.7-14.0) Prothromb Time International Ratio 3.6 (0.8-1.1) Microbiology 09/03/20 Blood Culture - Preliminary, Resulted NO GROWTH AFTER 2 DAYS Medications Current Medications Furosemide (Lasix) 40 mg 1X ONCE IVP Last administered on 09/03/20at 21:07; Start 09/03/20 at 21:00; Stop 09/03/20 at 21:01; Status DC Piperacillin Sod/ Tazobactam Sod 3.375 gm/Sodium Chloride 50 ml @ 100 mls/hr 1X ONCE IV Last administered on 09/03/20at 21:08; Start 09/03/20 at 21:00; Stop 09/03/20 at 21:29; Status DC Ondansetron HCl (Zofran) 4 mg PRN Q8HRS PRN IV NAUSEA/VOMITING; Start 09/03/20 at 21:00; Stop 09/04/20 at 20:59; Status DC Morphine Sulfate (Morphine Sulfate) 2 mg PRN Q2HR PRN IV PAIN; Start 09/03/20 at 21:00; Stop 09/04/20 at 20:59; Status DC Acetaminophen (Tylenol) 650 mg PRN Q4HRS PRN PO FEVER > 100.3'F; Start 09/03/20 at 21:00; Stop 09/04/20 at 20:59; Status DC Ascorbic Acid (Vitamin C) 250 mg DAILY PO Last administered on 09/06/20at 08:13; Start 09/04/20 at 09:00 Aspirin (Aspirin Chewable) 81 mg BID PO Last administered on 09/06/20at 08:14; Start 09/04/20 at 09:00 Atorvastatin Calcium (Lipitor) 40 mg DAILY PO Last administered on 09/06/20at 08:14; Start 09/04/20 at 09:00 Bumetanide (Bumex) 1 mg BID92 PO ; Start 09/04/20 at 09:00; Stop 09/04/20 at 07:53; Status DC Digoxin (Lanoxin) 125 mcg DAILY PO ; Start 09/04/20 at 09:00; Stop 09/04/20 at 07:47; Status DC Docusate Sodium (Colace) 100 mg TID PO Last administered on 09/06/20at 14:14; Start 09/04/20 at 09:00 Acetaminophen/ Hydrocodone Bitart (Lortab 5/325) 1 tab PRN Q6HRS PRN PO PAIN Last administered on 09/06/20at 14:14; Start 09/03/20 at 22:15 Metoprolol Tartrate (Lopressor) 100 mg DAILY PO ; Start 09/04/20 at 09:00; Stop 09/04/20 at 07:29; Status DC Warfarin Sodium (Coumadin Per Pharmacy) 1 each PRN DAILY PRN MC SEE COMMENTS Last administered on 09/06/20at 14:03; Start 09/03/20 at 22:15 Piperacillin Sod/ Tazobactam Sod (Zosyn Per Pharmacy) 1 each PRN DAILY PRN MC SEE COMMENTS; Start 09/03/20 at 22:15 Albuterol/ Ipratropium (Duoneb) 3 ml RTQID NEB Last administered on 09/06/20at 15:09; Start 09/04/20 at 08:00 Prednisone (Prednisone) 40 mg 1X ONCE PO Last administered on 09/03/20at 22:41; Start 09/03/20 at 22:15; Stop 09/03/20 at 22:21; Status DC Insulin Human Lispro (HumaLOG) 0-7 UNITS TIDWMEALS SQ Last administered on 08/08 12/28at 12:32; Start 09/04/20 at 08:00 Dextrose (Dextrose 50%-Water Syringe) 12.5 gm PRN Q15MIN PRN IV SEE COMMENTS; Start 09/03/20 at 22:15 Piperacillin Sod/ Tazobactam Sod 3.375 gm/Sodium Chloride 50 ml @ 100 mls/hr Q6HRS IV Last administered on 09/06/20at 11:39; Start 09/04/20 at 06:00 Warfarin Sodium (Coumadin - No Dose Today) 1 each 1X WARF ONCE MC Last administered on 09/04/20at 16:00; Start 09/04/20 at 16:00; Stop 09/04/20 at 16:01; Status DC Bumetanide (Bumex) 2.5 mg BID92 IV Last administered on 09/04/20at 15:23; Start 09/04/20 at 09:00; Stop 09/05/20 at 07:46; Status DC Lactobacillus Rhamnosus (Culturelle) 1 cap BID PO Last administered on 09/06/20at 08:13; Start 09/04/20 at 21:00 Tamsulosin HCl (Flomax) 0.4 mg QHS PO Last administered on 09/05/20at 21:43; Start 09/05/20 at 21:00 Bumetanide (Bumex) 1 mg BID92 IV Last administered on 09/06/20at 08:15; Start 09/05/20 at 09:00 Potassium Bicarbonate (Potassium Effervescent Tablet) 40 meq 1X ONCE PO Last administered on 09/05/20at 09:06; Start 09/05/20 at 08:00; Stop 09/05/20 at 08:01; Status DC Warfarin Sodium (Coumadin - No Dose Today) 1 each 1X WARF ONCE MC Last admini stered on 09/05/20at 15:58; Start 09/05/20 at 16:00; Stop 09/05/20 at 16:01; Status DC Warfarin Sodium (Coumadin - No Dose Today) 1 each 1X WARF ONCE MC ; Start 09/06/20 at 16:00; Stop 09/06/20 at 16:01 Active Scripts Active [place] 5-325 Tablet (Acetaminophen/Hydrocodone Bitart) 1 Each Tablet 7.5 Mg PO PRN Q6HRS PRN 6 Days LAST DOSE GIVEN: Reported Warfarin Sodium 2 Mg Tablet 4 Mg PO Warfarin Sodium 2 Mg Tablet 6 Mg PO QMTH Bumetanide 1 Mg Tablet 1 Mg PO BID Colace (Docusate Sodium) 100 Mg Capsule 1 Cap PO TID Metamucil Powder (Psyllium Seed (with Sugar)) 575 Gm Powder 575 Gm PO DAILY Atorvastatin Calcium 40 Mg Tablet 1 Tab PO DAILY Metoprolol Tartrate 100 Mg Tablet 100 Mg PO DAILY Tamsulosin Hcl 0.4 Mg Cap.er.24h 0.4 Mg PO HS DAILY Vitamin C (Ascorbic Acid) 500 Mg Tablet 250 Mg PO DAILY Aspirin 81 Mg Tab.chew 81 Mg PO BID Lanoxin (Digoxin) 125 Mcg Tablet 125 Mcg PO DAILY Vitals/I & O Vital Sign - Last 24 Hours 09/05/20 09/05/20 09/05/20 09/05/20 18:15 18:45 19:10 19:20 Temp 97.3 97.3 Pulse 78 Resp 18 18 18 B/P (MAP) 113/67 (82) Pulse Ox 96 96 96 O2 Delivery Room Air Room Air Room Air Room Air 09/05/20 09/05/20 09/06/20 09/06/20 20:11 22:40 01:02 01:32 Temp 98.1 98.1 Pulse 90 Resp 18 18 18 B/P (MAP) 100/42 (61) Pulse Ox 99 96 96 O2 Delivery Room Air Room Air Room Air Room Air 09/06/20 09/06/20 09/06/20 09/06/20 02:40 07:00 07:14 07:54 Temp 98.0 99.9 98.0 99.9 Pulse 72 71 Resp 18 22 B/P (MAP) 103/50 (67) 118/52 (74) Pulse Ox 92 99 99 O2 Delivery Room Air Room Air Room Air Room Air 09/06/20 09/06/20 09/06/20 09/06/20 08:14 08:44 11:05 11:36 Temp 99.6 99.6 Pulse 73 Resp 20 20 20 B/P (MAP) 116/53 (74) Pulse Ox 97 98 97 97 O2 Delivery Room Air Room Air Room Air Room Air 09/06/20 09/06/20 09/06/20 09/06/20 14:14 14:44 15:03 15:10 Temp 98.6 98.6 Pulse 69 Resp 20 20 18 B/P (MAP) 121/62 (81) Pulse Ox 95 97 97 97 O2 Delivery Room Air Room Air Room Air Room Air Intake and Output 09/05/20 09/05/20 09/06/20 15:00 23:00 07:00 Intake Total 580 ml 180 ml 120 ml Output Total 200 ml 600 ml Balance 380 ml -420 ml 120 ml Justifications for Admission Other Justification MAGI JEAN-BAPTISTE MD September 06, 2020 15:18
[2020-09-06 19:45] VITALS: BP 118/57
[2020-09-06] MEDS: TAMSULOSIN 0.4 MG CAP.ER.24H. PO SCH (20:47)
[2020-09-06 23:20] VITALS: BP 123/74
[2020-09-07 03:40] VITALS: BP 103/47
[2020-09-07] MEDS: PIPERACILLIN/TAZOBACTAM 3.375 GM in IV NORMAL SALINE 50ML 50 ML IV SCH ×3 (05:36→17:48)
[2020-09-07 07:00] VITALS: BP 112/46
[2020-09-07 07:32] LABS: HEMATOCRIT 32.8 % (39.0-53.0); HEMOGLOBIN 10.2 g/dL (13.0-17.5); RED BLOOD COUNT 3.62 x10^6/uL (4.30-5.70); RED CELL DISTRIBUTION WIDTH 25.7 % (11.5-14.5)
[2020-09-07] MEDS: IPRATRPIUM/ALBUTEROL 0.5/2.5MG 3 ML NEBU. NEB SCH ×4 (07:36→20:47)
[2020-09-07 07:41] LABS: PROTHROMBIN TIME PATIENT 33.6 SEC (11.7-14.0)
[2020-09-07 07:46] LABS: CALCIUM 8.6 mg/dL (8.5-10.1); CREATININE 2.2 mg/dL (0.7-1.3); GFR 34.4; POTASSIUM 3.7 mmol/L (3.5-5.1)
[2020-09-07] MEDS: DOCUSATE SODIUM 100 MG CAPSULE. PO SCH ×3 (07:48→20:30)
[2020-09-07] MEDS: ASPIRIN CHEWABLE 81 MG TABLET. PO SCH ×2 (07:48→20:30)
[2020-09-07] MEDS: LACTOBACILLUS RHAMNOSUS GG 1 CAPSULE. PO SCH ×2 (07:48→20:30)
[2020-09-07] MEDS: INSULIN LISPRO 300 UNITS/3 ML VIAL. SQ SCH ×3 (07:49→17:00)
[2020-09-07] MEDS: ATORVASTATIN CALCIUM 40 MG TABLET. PO SCH (07:49)
[2020-09-07] MEDS: ASCORBIC ACID 500 MG TABLET PO SCH (07:49)
[2020-09-07] MEDS: BUMETANIDE 1 MG/4 ML VIAL. IV SCH ×2 (09:00→16:10)
--- NOTE | 2020-09-07 09:23 | NUR ---
KARIE HELD THIS MORNING DUE TO DR ULLOA'S NOTE.
--- NOTE | 2020-09-07 09:29 | NUR ---
Pharmacy Warfarin Dosing Note S:Pharmacy consulted to assist with anticoagulation therapy started with target INR: 2 -3 O:MAMTA MACIAS is a 89 year old M with Atrial Fibrillation LABS: Last INR: 3.3 Last HGB: 10.2 Last HCT: 32.8 Last PLT: 431 Last dose of Hold given on 09/06/20 at Previous Regimen: 6 mg Mon,Thurs; 4 mg all other days Vitamin K given: Drug Interaction Changes: New Interacting Drug Ongoing Drug Interactions: ZOSYN A:INR of 3.3 is above desired range. Target range for this patient is: 2 -3 P: Warfarin dose: Hold Today at 1600 Bridge Therapy: None Next INR due 09/08/20. Pharmacy anticoagulation service will continue to follow. BART PIMENTEL RPH, 09/07/20 0925
--- NOTE | 2020-09-07 09:35 | PDOC ---
DATE OF SERVICE DATE: 09/07/20 TIME: 09:34 SUBJECTIVE ROS Stable, On RA ,has been on Bumex IV BID per primary , Held evening and this am dose No complaints by patient, denies SOB OBJECTIVE Vital Signs Vital Signs Date Time Temp Pulse Resp B/P (MAP) Pulse Ox O2 Delivery O2 Flow Rate FiO2 09/07/20 07:36 97 Room Air 09/07/20 07:00 99.8 54 16 112/46 (68) 99.8 I & 0 Intake and Output 09/07/20 07:00 Intake Total 1140 ml Balance 1140 ml Intake Oral 540 ml IV Total 600 ml # Voids 4 PHYSICAL EXAM Physical Exam Gen NAD , HEEN OM moist, hard of hearing Neck Supple Lungs decreased bases, Non labored CV S1`s2 Abd Soft, NT Neuro grossly Normal Skin No rash No CVA OR SP tenderness, No gaytan DIAGNOSIS/ASSESSMENT Assessment & Plan DION - suspect Cardiorenal , Cr elevated in July - admitted for CHF, prior labs in [facility] records with normal baseline Cr . Cr 2.2 today , stable, monitor, supportive care, Strict I/O ( not recorded) ,Daily standing wt Avoid nephrotoxins. Continue to Hold Bumex Acute on chronic systolic heart failure- appears compensated Echocardiogram 2020 ejection fraction of 40%. On Bumex at home HyperNatremia - Mild, encourage PO fluid intake; holding diuretics Exacerbation of COPD. Atrial fibrillation. History of coronary artery disease. Diabetes mellitus Hypertension; controlled COMMENT/RELEVANT DATA Meds Current Medications Medications (Trade) Dose Ordered Sig/Rakesh Start Time Stop Time Status Last Admin Dose Admin Acetaminophen (Tylenol) 650 mg PRN Q4HRS PRN 09/03/20 21:00 09/04/20 20:59 DC Acetaminophen/ Hydrocodone Bitart (Lortab 5/325) 1 tab PRN Q6HRS PRN 09/03/20 22:15 09/06/20 20:52 1 TAB Albuterol/ Ipratropium (Duoneb) 3 ml RTQID 09/04/20 08:00 09/07/20 07:36 3 ML Ascorbic Acid (Vitamin C) 250 mg DAILY 09/04/20 09:00 09/07/20 07:49 250 MG Aspirin (Aspirin Chewable) 81 mg BID 09/04/20 09:00 09/07/20 07:48 81 MG Atorvastatin Calcium (Lipitor) 40 mg DAILY 09/04/20 09:00 09/07/20 07:49 40 MG Bumetanide (Bumex) 1 mg BID92 09/05/20 09:00 09/06/20 08:15 1 MG Dextrose (Dextrose 50%-Water Syringe) 12.5 gm PRN Q15MIN PRN 09/03/20 22:15 Digoxin (Lanoxin) 125 mcg DAILY 09/04/20 09:00 09/04/20 07:47 DC Docusate Sodium (Colace) 100 mg TID 09/04/20 09:00 09/07/20 07:48 100 MG Furosemide (Lasix) 40 mg 1X ONCE 09/03/20 21:00 09/03/20 21:01 DC 09/03/20 21:07 40 MG Insulin Human Lispro (HumaLOG) 0-7 UNITS TIDWMEALS 09/04/20 08:00 09/04/20 12:32 4 UNITS Lactobacillus Rhamnosus (Culturelle) 1 cap BID 09/04/20 21:00 09/07/20 07:48 1 CAP Metoprolol Tartrate (Lopressor) 100 mg DAILY 09/04/20 09:00 09/04/20 07:29 DC Morphine Sulfate (Morphine Sulfate) 2 mg PRN Q2HR PRN 09/03/20 21:00 09/04/20 20:59 DC Ondansetron HCl (Zofran) 4 mg PRN Q8HRS PRN 09/03/20 21:00 09/04/20 20:59 DC Piperacillin Sod/ Tazobactam Sod (Zosyn Per Pharmacy) 1 each PRN DAILY PRN 09/03/20 22:15 Piperacillin Sod/ Tazobactam Sod 3.375 gm/Sodium Chloride 50 ml @ 100 mls/hr Q6HRS 09/04/20 06:00 09/07/20 05:36 100 MLS/HR Potassium Bicarbonate (Potassium Effervescent Tablet) 40 meq 1X ONCE 09/05/20 08:00 09/05/20 08:01 DC 09/05/20 09:06 40 MEQ Prednisone (Prednisone) 40 mg 1X ONCE 09/03/20 22:15 09/03/20 22:21 DC 09/03/20 22:41 40 MG Tamsulosin HCl (Flomax) 0.4 mg QHS 09/05/20 21:00 09/06/20 20:47 0.4 MG Warfarin Sodium (Coumadin - No Dose Today) 1 each 1X WARF ONCE 09/07/20 16:00 09/07/20 16:01 Warfarin Sodium (Coumadin Per Pharmacy) 1 each PRN DAILY PRN 09/03/20 22:15 09/07/20 09:28 1 EACH Lab Laboratory Tests Test 09/06/20 11:22 09/06/20 11:30 09/06/20 16:26 09/06/20 20:51 Glucose (Fingerstick) 88 mg/dL (70-99) 90 mg/dL (70-99) 94 mg/dL (70-99) Prothrombin Time 36.3 SEC (11.7-14.0) Prothromb Time International Ratio 3.6 (0.8-1.1) Test 09/07/20 07:10 09/07/20 07:25 White Blood Count 29.0 x10^3/uL (4.0-11.0) Red Blood Count 3.62 x10^6/uL (4.30-5.70) Hemoglobin 10.2 g/dL (13.0-17.5) Hematocrit 32.8 % (39.0-53.0) Mean Corpuscular Volume 90 fL (79-100) Mean Corpuscular Hemoglobin 28 pg (25-35) Mean Corpuscular Hemoglobin Concent 31 g/dL (31-37) Red Cell Distribution Width 25.7 % (11.5-14.5) Platelet Count 431 x10^3/uL (140-400) Prothrombin Time 33.6 SEC (11.7-14.0) Prothromb Time International Ratio 3.3 (0.8-1.1) Sodium Level 147 mmol/L (136-145) Potassium Level 3.7 mmol/L (3.5-5.1) Chloride Level 111 mmol/L (98-107) Carbon Dioxide Level 24 mmol/L (21-32) Anion Gap 12 (6-14) Blood Urea Nitrogen 56 mg/dL (8-26) Creatinine 2.2 mg/dL (0.7-1.3) Estimated GFR (Cockcroft-Gault) 34.4 Glucose Level 89 mg/dL (70-99) Calcium Level 8.6 mg/dL (8.5-10.1) Glucose (Fingerstick) 88 mg/dL (70-99) Results All relevant outside records, renal labs, imaging studies, telemetry/EKG's were reviewed. Justicifation of Admission Dx: Justifications for Admission: Justification of Admission Dx: Yes DEXTER ULLOA MD Sep 07, 2020 09:35
--- NOTE | 2020-09-07 10:52 | PDOC ---
PULMONARY PROGRESS NOTES DATE: 09/07/20 TIME: 10:52 Subjective Pt. remains on room air reports back pain and non-productive cough low grade fever overnight no overnight events Vitals Vital Signs Date Time Temp Pulse Resp B/P (MAP) Pulse Ox O2 Delivery O2 Flow Rate FiO2 09/07/20 08:00 Room Air 09/07/20 07:36 97 09/07/20 07:00 99.8 54 16 112/46 (68) 99.8 ROS: No Nausea, No Chest Pain, No Abdominal Pain, No Increase Cough General: Alert, No acute distress Lungs: Crackles (bases ) Cardiovascular: S1, S2 Abdomen: Soft, Non-tender Neuro Exam: Alert, Oriented Extremities: Other (edema) Skin: Warm, Dry Labs Laboratory Tests Test 09/05/20 12:13 09/05/20 17:08 09/05/20 21:14 09/06/20 07:30 Glucose (Fingerstick) 115 mg/dL (70-99) 91 mg/dL (70-99) 94 mg/dL (70-99) Sodium Level 146 mmol/L (136-145) Potassium Level 4.0 mmol/L (3.5-5.1) Chloride Level 110 mmol/L (98-107) Carbon Dioxide Level 23 mmol/L (21-32) Anion Gap 13 (6-14) Blood Urea Nitrogen 55 mg/dL (8-26) Creatinine 2.3 mg/dL (0.7-1.3) Estimated GFR (Cockcroft-Gault) 32.6 Glucose Level 93 mg/dL (70-99) Calcium Level 8.7 mg/dL (8.5-10.1) Magnesium Level 2.2 mg/dL (1.8-2.4) Test 09/06/20 07:34 09/06/20 11:22 09/06/20 11:30 09/06/20 16:26 Glucose (Fingerstick) 93 mg/dL (70-99) 88 mg/dL (70-99) 90 mg/dL (70-99) Prothrombin Time 36.3 SEC (11.7-14.0) Prothromb Time International Ratio 3.6 (0.8-1.1) Test 09/06/20 20:51 09/07/20 07:10 09/07/20 07:25 Glucose (Fingerstick) 94 mg/dL (70-99) 88 mg/dL (70-99) White Blood Count 29.0 x10^3/uL (4.0-11.0) Red Blood Count 3.62 x10^6/uL (4.30-5.70) Hemoglobin 10.2 g/dL (13.0-17.5) Hematocrit 32.8 % (39.0-53.0) Mean Corpuscular Volume 90 fL (79-100) Mean Corpuscular Hemoglobin 28 pg (25-35) Mean Corpuscular Hemoglobin Concent 31 g/dL (31-37) Red Cell Distribution Width 25.7 % (11.5-14.5) Platelet Count 431 x10^3/uL (140-400) Prothrombin Time 33.6 SEC (11.7-14.0) Prothromb Time International Ratio 3.3 (0.8-1.1) Sodium Level 147 mmol/L (136-145) Potassium Level 3.7 mmol/L (3.5-5.1) Chloride Level 111 mmol/L (98-107) Carbon Dioxide Level 24 mmol/L (21-32) Anion Gap 12 (6-14) Blood Urea Nitrogen 56 mg/dL (8-26) Creatinine 2.2 mg/dL (0.7-1.3) Estimated GFR (Cockcroft-Gault) 34.4 Glucose Level 89 mg/dL (70-99) Calcium Level 8.6 mg/dL (8.5-10.1) Laboratory Tests Test 09/06/20 11:22 09/06/20 11:30 09/06/20 16:26 09/06/20 20:51 Glucose (Fingerstick) 88 mg/dL (70-99) 90 mg/dL (70-99) 94 mg/dL (70-99) Prothrombin Time 36.3 SEC (11.7-14.0) Prothromb Time International Ratio 3.6 (0.8-1.1) Test 09/07/20 07:10 09/07/20 07:25 White Blood Count 29.0 x10^3/uL (4.0-11.0) Red Blood Count 3.62 x10^6/uL (4.30-5.70) Hemoglobin 10.2 g/dL (13.0-17.5) Hematocrit 32.8 % (39.0-53.0) Mean Corpuscular Volume 90 fL (79-100) Mean Corpuscular Hemoglobin 28 pg (25-35) Mean Corpuscular Hemoglobin Concent 31 g/dL (31-37) Red Cell Distribution Width 25.7 % (11.5-14.5) Platelet Count 431 x10^3/uL (140-400) Prothrombin Time 33.6 SEC (11.7-14.0) Prothromb Time International Ratio 3.3 (0.8-1.1) Sodium Level 147 mmol/L (136-145) Potassium Level 3.7 mmol/L (3.5-5.1) Chloride Level 111 mmol/L (98-107) Carbon Dioxide Level 24 mmol/L (21-32) Anion Gap 12 (6-14) Blood Urea Nitrogen 56 mg/dL (8-26) Creatinine 2.2 mg/dL (0.7-1.3) Estimated GFR (Cockcroft-Gault) 34.4 Glucose Level 89 mg/dL (70-99) Calcium Level 8.6 mg/dL (8.5-10.1) Glucose (Fingerstick) 88 mg/dL (70-99) Medications Active Scripts Medications Dose Route/Sig Max Daily Dose Days Date Category Dose Instructions Bumetanide 1 Mg Tablet 1 Mg PO BID 07/28/20 Reported [place] 5-325 Tablet (Acetaminophen/Hydrocodone Bitart) 1 Each Tablet 7.5 Mg PO PRN Q6HRS PRN 6 09/20/18 Rx LAST DOSE GIVEN: Colace (Docusate Sodium) 100 Mg Capsule 1 Cap PO TID 09/09/18 Reported Metamucil Powder (Psyllium Seed (with Sugar)) 575 Gm Powder 575 Gm PO DAILY 09/09/18 Reported Atorvastatin Calcium 40 Mg Tablet 1 Tab PO DAILY 08/12/18 Reported Metoprolol Tartrate 100 Mg Tablet 100 Mg PO DAILY 11/08/17 Reported Tamsulosin Hcl 0.4 Mg Cap.er.24h 0.4 Mg PO HS DAILY 11/08/17 Reported Vitamin C (Ascorbic Acid) 500 Mg Tablet 250 Mg PO DAILY 05/08/14 Reported Warfarin Sodium 5 Mg Tablet 1.5 Tab PO QWE 04/18/14 Reported Warfarin Sodium 5 Mg Tablet 1 Tab PO DAILY EXCEPT WED. 04/18/14 Reported Aspirin 81 Mg Tab.chew 81 Mg PO BID 08/22/13 Reported Lanoxin (Digoxin) 125 Mcg Tablet 125 Mcg PO DAILY 08/22/13 Reported Impression . IMPRESSION: 1. Dyspnea secondary to acute systolic and diastolic congestive heart failure--improving on room air 2. Abnormal chest x-ray. 3. 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 4. Cardiomyopathy. 5. 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 6. Obstructive sleep apnea-hypopnea syndrome, CPAP noncompliant. 7. Paroxysmal atrial fibrillation, on Coumadin. 8. Acute kidney injury/chronic kidney disease. Plan . RECOMMENDATIONS: Titrate FiO2 to keep O2 saturation 92%, currently yon room air NEBS Follow cardiology recs----Echocardiogram 2019 ejection fraction of 40% Follow nephrology recs -- bumex currently on hold-- monitor renal function ongoing education of importance of CPAP, pt. still declines and He understands the risks of not treating obstructive sleep apnea-hypopnea syndrome. Continue Coumadin. Keep INR between 2 and 3. Continue antibiotic, zosyn DVT/GI PPX D/W BREN ONTIVEROS MD Sep 07, 2020 10:52
--- NOTE | 2020-09-07 10:53 | PDOC ---
PROGRESS NOTES Date of Service: DATE: 09/07/20 TIME: 10:52 Chief Complaint Chief Complaint impression Acute on chronic combined systolic and diastolic heart failure. We will diurese with intravenous Bumex. 2D echo in September 2019 showed LVEF 40%. Coronary artery disease: Patient has known chronic total occlusion of LAD with collaterals, presently stable and chest pain-free. Lexiscan nuclear stress test in March 2020 showed large inferior infarct without any significant ischemia. Continue current secondary prevention measures. Sick sinus syndrome s/p permanent pacemaker implantation with more recent generator change. Recent device check showed normal function. He denied any syncope or near syncope. Permanent atrial fibrillation: Telemetry showed demand pacing. Patient on warfarin for stroke prophylaxis. Check PT/INR. Hypertension - Controlled. Will back off on his BB. He is actually on 100mg metoprolol tartrate Hyperlipidemia - Continue statin Diabetes mellitus type 2 - diet controlled, A1c previously 5.8 Severe Protein calorie malnutrition - severe given his edema and albumin. 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 Normal LV systolic function. EF 60% plan FEN - Cardiac ADA diet PPX - warfarin CODE - FULL Dispo - inpatient CVC for CHF exacerbation History of Present Illness History of Present Illness Mr Rivero is an 89yo M w/ PMHx DM2, HLD, HTN, afib, SSS s/p PPM, CAD, chronic systolic CHF who presented to ED c/o for weakness and dyspnea. Also complains of dyspnea worsening over weeks, with a few days of noted LE edema is worse with cough in the morning that is productive of white sputum. he has cough at times, He denied any chest pain, palpitations or syncope. Given 1 dose iv lasix in ED 40mg, < 500 uop after, still feeling short of breath. He follows with Dr. Santoyo and has been recently changed to Bumex last month. Chest radiograph with interstitial edema. Labs with WBC 27.3, Hb 10.3, platelets 454, NA 145, K4.7, BUN 58, CR 2.1, INR 3.2 TSH 5.5, digoxin level 2.2, albumin 2.7, bilirubin 2.2, AST 56 ALT 12 alkaline phosphatase 138 NT proBNP 31,348 Admitted for further treatment. 09/04: Afebrile. WBC still high. Reasonably good urine output. A little confused Febrile. 1.3 L urine output. Still with very swollen lower extremities. No chest pain little bit short of breath. Not on O2 today. 09-06 Still with very swollen lower extremities. No chest pain little bit short of breath. Acute on chronic combined systolic and diastolic heart failure. We will diurese with intravenous Bumex. 2D echo in September 2019 showed LVEF 40%. Coronary artery disease: Patient has known chronic total occlusion of LAD with collaterals, presently stable and chest pain-free. Lexiscan nuclear stress test in March 2020 showed large inferior infarct without any significant ischemia. Continue current secondary prevention measures. Sick sinus syndrome s/p permanent pacemaker implantation with more recent generator change. Recent device check showed normal function. He denied any syncope or near syncope. Permanent atrial fibrillation: Telemetry showed demand pacing. Patient on warfarin for stroke prophylaxis. Check PT/INR. Hypertension - Controlled. Will back off on his BB. He is actually on 100mg metoprolol tartrate Hyperlipidemia - Continue statin Diabetes mellitus type 2 - diet controlled, A1c previously 5.8 Severe Protein calorie malnutrition - severe given his edema and albumin. tician to see D/W RN 09/07 CR 2.2 LESS swollen lower extremities. No chest pain little bit short of breath. Acute on chronic combined systolic and diastolic heart failure. We will diurese with intravenous Bumex. 2D echo in September 2019 showed LVEF 40%. Coronary artery disease: Patient has known chronic total occlusion of LAD with collaterals, presently stable and chest pain-free. Lexiscan nuclear stress test in March 2020 showed large inferior infarct without any significant ischemia. Continue current secondary prevention measures. Sick sinus syndrome s/p permanent pacemaker implantation with more recent generator change. Recent device check showed normal function. He denied any syncope or near syncope. Permanent atrial fibrillation: Telemetry showed demand pacing. Patient on warfarin for stroke prophylaxis. Check PT/INR. Hypertension - Controlled. Will back off on his BB. He is actually on 100mg metoprolol tartrate Hyperlipidemia - Continue statin Diabetes mellitus type 2 - diet controlled, A1c previously 5.8 Severe Protein calorie malnutrition - severe given his edema and albumin. Core Cutter to see D/W RN Vitals Vitals Vital Signs Date Time Temp Pulse Resp B/P (MAP) Pulse Ox O2 Delivery O2 Flow Rate FiO2 09/07/20 08:00 Room Air 09/07/20 07:36 97 09/07/20 07:00 99.8 54 16 112/46 (68) 99.8 Physical Exam Physical Exam HEENT: Atraumatic, EOMI, Mucous membr. moist/pink, Other (upper dentures) Lungs: Other (very limited volume breaths, no wheeze, distant sounds) Abdomen: Normal bowel sounds, Soft Extremities: No clubbing, Other (2+ edema, no breakdown) Skin: No rashes, No breakdown, No significant lesion Neuro: Normal speech, Normal tone, Sensation intact General: mild distress Heart: Regular rate Lungs: Crackles (bases ) Abdomen: Normal bowel sounds Extremities: No clubbing, Other (2+ edema, no breakdown) Skin: No rashes, No breakdown, No significant lesion Labs LABS WHAT MUST I INCLUDE IN MY ADVANCE DIRECTIVE? The name and contact information of your healthcare agent/proxy. Answers to specific questions about your preferences for care if you become unable to speak for yourself. The forms and questions asked vary a bit from state to state. A sample question: Do you want to receive artificially provided nutrition or hydration when you are close to and/or permanently unconscious? Names and signatures of individuals who witness your signing your advance directive, if required. Not all states require witness signatures. The signature and seal of a public relations representative, if required by your state. Not all states require advance directives to be notarized. [facility] has a list of all advance directive/living will requirements by state. WHAT ELSE WOULD BE GOOD TO INCLUDE IN MY ADVANCE DIRECTIVE? Detailed information about what procedures or types of care you would like to receive and what you wish to avoid at all costs that are not covered by the que stions on the form. Would you want to take advantage of all life-support technologies if it would only postpone ? Would you want to use them if you were permanently unconscious? Would you want them if you were going through an advanced progressive illness? More general statements about your values regarding end-of-life care. What does a good mean and look like to you? For that matter, what defines a life worth living? Do you define life by the intake of breath and nutrients? Is it defined by consciousness? At what point do you want to prolong it and at what point do you want to preserve resources for other people? Personal desires for body disposition in essence, what you want to happen to your body when you and plans for any memorial service(s) A list of people who cannot make healthcare decisions for you. Leave no room for ambiguity, which could lead to tensions between loved ones about your care as you are dying. HOW SHOULD I GO ABOUT IDENTIFYING MY HEALTHCARE AGENT/PROXY? An ideal person for the job is someone who: Knows you well. A spouse/partner, a family member, a close friend: all are good candidates. Excels at making difficult decisions under pressure. Is diplomatic and empathetic critical traits for balancing the needs, wants, a nd unpredictable emotions of a patients loved ones. Isnt afraid to ask tough questions, which invariably arise when discussing a dying individuals end-of-life care. Is easily reachable by email, phone, and/or text. Is or can easily be within physical proximity of where youre likely to receive care. Once Brielle identified this person, how do I talk to them about what care I want and dont want at the end of life? Have multiple conversations with your healthcare agent about your wishes. Take them out to tea, have them over for dinner, go to a bar or library. Talk about what you want, and make sure you are heard and understood. WHAT IF MY HEALTHCARE AGENT/PROXY IS UNAVAILABLE TO EXECUTE THEIR DUTIES WHEN I AM DYING? It is important to appoint an alternative agent/proxy for exactly this reason. Identify and inform that person as you did your main agent/proxy, and list them as an alternate on your advance directive form. In most states, witnesses cannot be: Your healthcare agent or proxy; Any of your care providers; Related to you by blood, adoption, or marriage; Entitled to any portion of your estate upon your . dpoa 18 min to portal / discussion and topics, chart review Laboratory Tests Test 09/06/20 11:22 09/06/20 11:30 09/06/20 16:26 09/06/20 20:51 Glucose (Fingerstick) 88 mg/dL (70-99) 90 mg/dL (70-99) 94 mg/dL (70-99) Prothrombin Time 36.3 SEC (11.7-14.0) Prothromb Time International Ratio 3.6 (0.8-1.1) Test 09/07/20 07:10 09/07/20 07:25 White Blood Count 29.0 x10^3/uL (4.0-11.0) Red Blood Count 3.62 x10^6/uL (4.30-5.70) Hemoglobin 10.2 g/dL (13.0-17.5) Hematocrit 32.8 % (39.0-53.0) Mean Corpuscular Volume 90 fL (79-100) Mean Corpuscular Hemoglobin 28 pg (25-35) Mean Corpuscular Hemoglobin Concent 31 g/dL (31-37) Red Cell Distribution Width 25.7 % (11.5-14.5) Platelet Count 431 x10^3/uL (140-400) Prothrombin Time 33.6 SEC (11.7-14.0) Prothromb Time International Ratio 3.3 (0.8-1.1) Sodium Level 147 mmol/L (136-145) Potassium Level 3.7 mmol/L (3.5-5.1) Chloride Level 111 mmol/L (98-107) Carbon Dioxide Level 24 mmol/L (21-32) Anion Gap 12 (6-14) Blood Urea Nitrogen 56 mg/dL (8-26) Creatinine 2.2 mg/dL (0.7-1.3) Estimated GFR (Cockcroft-Gault) 34.4 Glucose Level 89 mg/dL (70-99) Calcium Level 8.6 mg/dL (8.5-10.1) Glucose (Fingerstick) 88 mg/dL (70-99) Assessment and Plan Assessmemt and Plan Problems Medical Problems: (1) CHF (congestive heart failure) Status: Acute Comment Review of Relevant I have reviewed the following items tiffany (where applicable) has been applied. Labs Laboratory Tests Test 09/05/20 12:13 09/05/20 17:08 09/05/20 21:14 09/06/20 07:30 Glucose (Fingerstick) 115 mg/dL (70-99) 91 mg/dL (70-99) 94 mg/dL (70-99) Sodium Level 146 mmol/L (136-145) Potassium Level 4.0 mmol/L (3.5-5.1) Chloride Level 110 mmol/L (98-107) Carbon Dioxide Level 23 mmol/L (21-32) Anion Gap 13 (6-14) Blood Urea Nitrogen 55 mg/dL (8-26) Creatinine 2.3 mg/dL (0.7-1.3) Estimated GFR (Cockcroft-Gault) 32.6 Glucose Level 93 mg/dL (70-99) Calcium Level 8.7 mg/dL (8.5-10.1) Magnesium Level 2.2 mg/dL (1.8-2.4) Test 09/06/20 07:34 09/06/20 11:22 09/06/20 11:30 09/06/20 16:26 Glucose (Fingerstick) 93 mg/dL (70-99) 88 mg/dL (70-99) 90 mg/dL (70-99) Prothrombin Time 36.3 SEC (11.7-14.0) Prothromb Time International Ratio 3.6 (0.8-1.1) Test 09/06/20 20:51 09/07/20 07:10 09/07/20 07:25 Glucose (Fingerstick) 94 mg/dL (70-99) 88 mg/dL (70-99) White Blood Count 29.0 x10^3/uL (4.0-11.0) Red Blood Count 3.62 x10^6/uL (4.30-5.70) Hemoglobin 10.2 g/dL (13.0-17.5) Hematocrit 32.8 % (39.0-53.0) Mean Corpuscular Volume 90 fL (79-100) Mean Corpuscular Hemoglobin 28 pg (25-35) Mean Corpuscular Hemoglobin Concent 31 g/dL (31-37) Red Cell Distribution Width 25.7 % (11.5-14.5) Platelet Count 431 x10^3/uL (140-400) Prothrombin Time 33.6 SEC (11.7-14.0) Prothromb Time International Ratio 3.3 (0.8-1.1) Sodium Level 147 mmol/L (136-145) Potassium Level 3.7 mmol/L (3.5-5.1) Chloride Level 111 mmol/L (98-107) Carbon Dioxide Level 24 mmol/L (21-32) Anion Gap 12 (6-14) Blood Urea Nitrogen 56 mg/dL (8-26) Creatinine 2.2 mg/dL (0.7-1.3) Estimated GFR (Cockcroft-Gault) 34.4 Glucose Level 89 mg/dL (70-99) Calcium Level 8.6 mg/dL (8.5-10.1) Laboratory Tests Test 09/06/20 11:22 09/06/20 11:30 09/06/20 16:26 09/06/20 20:51 Glucose (Fingerstick) 88 mg/dL (70-99) 90 mg/dL (70-99) 94 mg/dL (70-99) Prothrombin Time 36.3 SEC (11.7-14.0) Prothromb Time International Ratio 3.6 (0.8-1.1) Test 09/07/20 07:10 09/07/20 07:25 White Blood Count 29.0 x10^3/uL (4.0-11.0) Red Blood Count 3.62 x10^6/uL (4.30-5.70) Hemoglobin 10.2 g/dL (13.0-17.5) Hematocrit 32.8 % (39.0-53.0) Mean Corpuscular Volume 90 fL (79-100) Mean Corpuscular Hemoglobin 28 pg (25-35) Mean Corpuscular Hemoglobin Concent 31 g/dL (31-37) Red Cell Distribution Width 25.7 % (11.5-14.5) Platelet Count 431 x10^3/uL (140-400) Prothrombin Time 33.6 SEC (11.7-14.0) Prothromb Time International Ratio 3.3 (0.8-1.1) Sodium Level 147 mmol/L (136-145) Potassium Level 3.7 mmol/L (3.5-5.1) Chloride Level 111 mmol/L (98-107) Carbon Dioxide Level 24 mmol/L (21-32) Anion Gap 12 (6-14) Blood Urea Nitrogen 56 mg/dL (8-26) Creatinine 2.2 mg/dL (0.7-1.3) Estimated GFR (Cockcroft-Gault) 34.4 Glucose Level 89 mg/dL (70-99) Calcium Level 8.6 mg/dL (8.5-10.1) Glucose (Fingerstick) 88 mg/dL (70-99) Microbiology 09/03/20 Blood Culture - Preliminary, Resulted NO GROWTH AFTER 3 DAYS Medications Current Medications Furosemide (Lasix) 40 mg 1X ONCE IVP Last administered on 09/03/20at 21:07; Start 09/03/20 at 21:00; Stop 09/03/20 at 21:01; Status DC Piperacillin Sod/ Tazobactam Sod 3.375 gm/Sodium Chloride 50 ml @ 100 mls/hr 1X ONCE IV Last administered on 09/03/20at 21:08; Start 09/03/20 at 21:00; Stop 09/03/20 at 21:29; Status DC Ondansetron HCl (Zofran) 4 mg PRN Q8HRS PRN IV NAUSEA/VOMITING; Start 09/03/20 at 21:00; Stop 09/04/20 at 20:59; Status DC Morphine Sulfate (Morphine Sulfate) 2 mg PRN Q2HR PRN IV PAIN; Start 09/03/20 at 21:00; Stop 09/04/20 at 20:59; Status DC Acetaminophen (Tylenol) 650 mg PRN Q4HRS PRN PO FEVER > 100.3'F; Start 09/03/20 at 21:00; Stop 09/04/20 at 20:59; Status DC Ascorbic Acid (Vitamin C) 250 mg DAILY PO Last administered on 09/07/20at 07:49; Start 09/04/20 at 09:00 Aspirin (Aspirin Chewable) 81 mg BID PO Last administered on 09/07/20at 07:48; Start 09/04/20 at 09:00 Atorvastatin Calcium (Lipitor) 40 mg DAILY PO Last administered on 09/07/20at 07:49; Start 09/04/20 at 09:00 Bumetanide (Bumex) 1 mg BID92 PO ; Start 09/04/20 at 09:00; Stop 09/04/20 at 07:53; Status DC Digoxin (Lanoxin) 125 mcg DAILY PO ; Start 09/04/20 at 09:00; Stop 09/04/20 at 0 7:47; Status DC Docusate Sodium (Colace) 100 mg TID PO Last administered on 09/07/20at 07:48; Start 09/04/20 at 09:00 Acetaminophen/ Hydrocodone Bitart (Lortab 5/325) 1 tab PRN Q6HRS PRN PO PAIN Last administered on 09/06/20at 20:52; Start 09/03/20 at 22:15 Metoprolol Tartrate (Lopressor) 100 mg DAILY PO ; Start 09/04/20 at 09:00; Stop 09/04/20 at 07:29; Status DC Warfarin Sodium (Coumadin Per Pharmacy) 1 each PRN DAILY PRN MC SEE COMMENTS Last administered on 09/07/20at 09:28; Start 09/03/20 at 22:15 Piperacillin Sod/ Tazobactam Sod (Zosyn Per Pharmacy) 1 each PRN DAILY PRN MC SEE COMMENTS; Start 09/03/20 at 22:15 Albuterol/ Ipratropium (Duoneb) 3 ml RTQID NEB Last administered on 09/07/20at 07:36; Start 09/04/20 at 08:00 Prednisone (Prednisone) 40 mg 1X ONCE PO Last administered on 09/03/20at 22:41; Start 09/03/20 at 22:15; Stop 09/03/20 at 22:21; Status DC Insulin Human Lispro (HumaLOG) 0-7 UNITS TIDWMEALS SQ Last administered on 09/04/20at 12:32; Start 09/04/20 at 08:00 Dextrose (Dextrose 50%-Water Syringe) 12.5 gm PRN Q15MIN PRN IV SEE COMMENTS; Start 09/03/20 at 22:15 Piperacillin Sod/ Tazobactam Sod 3.375 gm/Sodium Chloride 50 ml @ 100 mls/hr Q6HRS IV Last administered on 09/07/20at 05:36; Start 09/04/20 at 06:00 Warfarin Sodium (Coumadin - No Dose Today) 1 each 1X WARF ONCE MC Last administered on 09/04/20at 16:00; Start 09/04/20 at 16:00; Stop 09/04/20 at 16:01; Status DC Bumetanide (Bumex) 2.5 mg BID92 IV Last administered on 09/04/20at 15:23; Start 09/04/20 at 09:00; Stop 09/05/20 at 07:46; Status DC Lactobacillus Rhamnosus (Culturelle) 1 cap BID PO Last administered on 09/07/20at 07:48; Start 09/04/20 at 21:00 Tamsulosin HCl (Flomax) 0.4 mg QHS PO Last administered on 09/06/20at 20:47; Start 09/05/20 at 21:00 Bumetanide (Bumex) 1 mg BID92 IV Last administered on 09/06/20at 08:15; Start 09/05/20 at 09:00 Potassium Bicarbonate (Potassium Effervescent Tablet) 40 meq 1X ONCE PO Last administered on 09/05/20at 09:06; Start 09/05/20 at 08:00; Stop 09/05/20 at 08:01; Status DC Warfarin Sodium (Coumadin - No Dose Today) 1 each 1X WARF ONCE MC Last administered on 09/05/20at 15:58; Start 09/05/20 at 16:00; Stop 09/05/20 at 16:0 1; Status DC Warfarin Sodium (Coumadin - No Dose Today) 1 each 1X WARF ONCE MC Last administered on 09/06/20at 16:00; Start 09/06/20 at 16:00; Stop 09/06/20 at 16:01; Status DC Warfarin Sodium (Coumadin - No Dose Today) 1 each 1X WARF ONCE MC ; Start 09/07/20 at 16:00; Stop 09/07/20 at 16:01 Active Scripts Active [place] 5-325 Tablet (Acetaminophen/Hydrocodone Bitart) 1 Each Tablet 7.5 Mg PO PRN Q6HRS PRN 6 Days LAST DOSE GIVEN: Reported Warfarin Sodium 2 Mg Tablet 4 Mg PO Warfarin Sodium 2 Mg Tablet 6 Mg PO QMTH Bumetanide 1 Mg Tablet 1 Mg PO BID Colace (Docusate Sodium) 100 Mg Capsule 1 Cap PO TID Metamucil Powder (Psyllium Seed (with Sugar)) 575 Gm Powder 575 Gm PO DAILY Atorvastatin Calcium 40 Mg Tablet 1 Tab PO DAILY Metoprolol Tartrate 100 Mg Tablet 100 Mg PO DAILY Tamsulosin Hcl 0.4 Mg Cap.er.24h 0.4 Mg PO HS DAILY Vitamin C (Ascorbic Acid) 500 Mg Tablet 250 Mg PO DAILY Aspirin 81 Mg Tab.chew 81 Mg PO BID Lanoxin (Digoxin) 125 Mcg Tablet 125 Mcg PO DAILY Vitals/I & O Vital Sign - Last 24 Hours 09/06/20 09/06/20 09/06/2031/21 11:05 11:36 14:14 14:44 Temp 99.6 99.6 Pulse 73 Resp 20 20 20 B/P (MAP) 116/53 (74) Pulse Ox 97 97 95 97 O2 Delivery Room Air Room Air Room Air Room Air 09/06/20 09/06/20 09/06/20 09/06/20 15:03 15:10 19:30 19:45 Temp 98.6 98.7 98.6 98.7 Pulse 69 66 Resp 18 20 B/P (MAP) 121/62 (81) 118/57 (77) Pulse Ox 97 97 93 O2 Delivery Room Air Room Air Room Air Room Air 09/06/20 09/06/20 09/06/20 09/07/20 20:06 20:52 23:20 03:40 Temp 98.1 98.3 98.1 98.3 Pulse 82 72 Resp 20 20 B/P (MAP) 123/74 (90) 103/47 (65) Pulse Ox 96 94 97 O2 Delivery Room Air Room Air Room Air Room Air 09/07/20 09/07/20 09/07/20 07:00 07:36 08:00 Temp 99.8 99.8 Pulse 54 Resp 16 B/P (MAP) 112/46 (68) Pulse Ox 96 97 O2 Delivery Room Air Room Air Room Air Intake and Output 09/06/20 09/06/20 09/07/20 15:00 23:00 07:00 Intake Total 100 ml 390 ml 650 ml Balance 100 ml 390 ml 650 ml Justicifation of Admission Dx: Justifications for Admission: Justification of Admission Dx: Yes JAYLIN LAGUERRE MD Sep 07, 2020 10:52
[2020-09-07 11:00] VITALS: BP 105/48
--- NOTE | 2020-09-07 11:55 | NUR ---
SS following for discharge planning. SS reviewed pt chart and discussed with pt RN. pt is from home and is currently on room air. Pt on IV Zosyn. Pt having x-ray of lumbar spine today. PT/OT recommended usp unit. SS met with pt and spoke with pt's family to discuss discharge planning and usp unit. Pt's family agreeable to usp unit and requested referral be phoned and faxed to [facility], ; fax [phone]. Pt had both COVID19 vaccines in June of 2020. COVID19 test requested for placement. SS requested copy of pt's vaccination card for placement. SS phoned and faxed referral as requested. SS will continue to follow for discharge planning.
--- NOTE | 2020-09-07 12:21 | PDOC ---
BART PAZ DIAGRAM CLERK 09/07/20 1221: CARDIO Progress Notes Date and Time Date of Service 09/07/20 Time of Evaluation 1215 Subjective Subjective: No Chest Pain, No Palpitations, Other (SOA improved ) Vitals Vitals Vital Signs Date Time Temp Pulse Resp B/P (MAP) Pulse Ox O2 Delivery O2 Flow Rate FiO2 09/07/20 11:55 100 Room Air 09/07/20 11:00 97.6 84 16 105/48 (67) 97.6 Weight Weight [ ] Input and Output Intake and Output Intake and Output 09/07/20 07:00 Intake Total 1140 ml Balance 1140 ml Intake Oral 540 ml IV Total 600 ml # Voids 4 Laboratory Labs Laboratory Tests Test 09/06/20 16:26 09/06/20 20:51 09/07/20 07:10 09/07/20 07:25 Glucose (Fingerstick) 90 mg/dL (70-99) 94 mg/dL (70-99) 88 mg/dL (70-99) White Blood Count 29.0 x10^3/uL (4.0-11.0) Red Blood Count 3.62 x10^6/uL (4.30-5.70) Hemoglobin 10.2 g/dL (13.0-17.5) Hematocrit 32.8 % (39.0-53.0) Mean Corpuscular Volume 90 fL (79-100) Mean Corpuscular Hemoglobin 28 pg (25-35) Mean Corpuscular Hemoglobin Concent 31 g/dL (31-37) Red Cell Distribution Width 25.7 % (11.5-14.5) Platelet Count 431 x10^3/uL (140-400) Prothrombin Time 33.6 SEC (11.7-14.0) Prothromb Time International Ratio 3.3 (0.8-1.1) Sodium Level 147 mmol/L (136-145) Potassium Level 3.7 mmol/L (3.5-5.1) Chloride Level 111 mmol/L (98-107) Carbon Dioxide Level 24 mmol/L (21-32) Anion Gap 12 (6-14) Blood Urea Nitrogen 56 mg/dL (8-26) Creatinine 2.2 mg/dL (0.7-1.3) Estimated GFR (Cockcroft-Gault) 34.4 Glucose Level 89 mg/dL (70-99) Calcium Level 8.6 mg/dL (8.5-10.1) Test 09/07/20 12:10 Glucose (Fingerstick) 110 mg/dL (70-99) Microbiology Micro Microbiology 09/03/20 Blood Culture - Preliminary, Resulted NO GROWTH AFTER 3 DAYS Physical Exam HEENT: Neck Supple W Full Motion Chest: Symmetric LUNGS: Clear to Auscultation Heart: irregularly irregular (intermittent AFIB) Abdomen: Soft N/T Extremities: Other (1-2+ bilateral LE edema ) Neurology: alert, oriented, follow commands Assessment Assessment 1. Acute respiratory failure with a/c CHF and untreated USAMA 2. 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 Echo 07/28 with LVEF 45% 3. 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 clinically stable, CP free. 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 4. Permanent AFIB; rate controlled with BB. on warfarin for stroke prevention. INR 3.3 5. 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 [facility]) - recent device check showed normal function. no dizziness, syncope 6. Hypertension; controlled 7. Hyperlipidemia; statin 8. Diabetes, II; as per IM 9. DION on CKD Recommendations Diuresis with close monitoring of renal function Secondary prevention measures BB for rate control Warfarin for stroke prophylaxis Supportive care Justicifation of Admission Dx: Justifications for Admission: Justification of Admission Dx: Yes SHAWN PARKER MD 09/07/202120: CARDIO Progress Notes Assessment Assessment Patient seen and examined. Agree with DISASTER RECOVERY ANALYST's assessment and plan. Ac on chr combined systolic and diast HF better compensated CAD clinically stable Permanent atrial fibrillation rate controlled Continue warfarin for stroke prophylaxis SSS s/p PPM stable BART PAZ APRN Sep 07, 2020 12:21 SHAWN PARKER MD Sep 07, 2020 21:21
[2020-09-07] MEDS ORDERED: BISACODYL 10 MG SUPP.RECT. PR ONE (13:00)
[2020-09-07] MEDS: HYDROcodone/APAP 5/325MG 1 TAB TABLET PO PRN ×2 (13:44→20:32)
[2020-09-07 15:00] VITALS: BP 106/43
--- NOTE | 2020-09-07 17:01 | RAD ---
EXAM: Lumbar spine, 3 views. HISTORY: Pain. COMPARISON: None. FINDINGS: 3 views of the lumbar spine are obtained. There is mild lumbar levoscoliosis. There is grad e 1 anterolisthesis of L4 and L5 and L5 on S1, measuring approximately 4 mm. There is multilevel endp late remodeling. There is disc space narrowing predominantly at L2-L3. There is multilevel facet arth ropathy. There are cholecystectomy clips. IMPRESSION: 1. Multilevel degenerative change throughout the lumbar spine, described above. 2. Grade 1 anterolisthesis at the lower lumbar levels. 3. No acute osseous finding. Electronically signed by: Sarah Mccabe MD (09/07/2020 4:58 PM) [id number]
[2020-09-07] MEDS ORDERED: BISACODYL 10 MG SUPP.RECT. PR PRN (18:45)
[2020-09-07 19:35] VITALS: BP 122/60
[2020-09-07] MEDS: TAMSULOSIN 0.4 MG CAP.ER.24H. PO SCH (20:30)
[2020-09-07 22:40] VITALS: BP 109/61
[2020-09-08 03:50] VITALS: BP 122/51
[2020-09-08] MEDS: PIPERACILLIN/TAZOBACTAM 3.375 GM in IV NORMAL SALINE 50ML 50 ML IV SCH ×4 (06:22→17:29)
[2020-09-08 07:00] VITALS: BP 113/49
[2020-09-08] MEDS: IPRATRPIUM/ALBUTEROL 0.5/2.5MG 3 ML NEBU. NEB SCH ×4 (07:33→20:30)
[2020-09-08] MEDS: INSULIN LISPRO 300 UNITS/3 ML VIAL. SQ SCH ×3 (08:00→17:00)
[2020-09-08 08:12] LABS: BASO # 1.7 x10^3/uL (0.0-0.2); BASO % 6 % (0-3); EOS # 0.4 x10^3/uL (0.0-0.7); EOS % 1 % (0-3); HEMATOCRIT 33.2 % (39.0-53.0); HEMOGLOBIN 10.2 g/dL (13.0-17.5); LYMPH # 2.1 x10^3/uL (1.0-4.8); LYMPH % 7 % (24-48); MEAN CORPUSCULAR HEMOGLOBIN 28 pg (25-35); MEAN CORPUSCULAR HGB CONC 31 g/dL (31-37); MEAN CORPUSCULAR VOLUME 91 fL (79-100); MONO # 0.8 x10^3/uL (0.0-1.1); MONO % 3 % (0-9); NEUT # 25.4 x10^3/uL (1.8-7.7); NEUT % 84 % (31-73); PLATELET COUNT 412 x10^3/uL (140-400); RED BLOOD COUNT 3.64 x10^6/uL (4.30-5.70); RED CELL DISTRIBUTION WIDTH 25.2 % (11.5-14.5); WHITE BLOOD COUNT 30.3 x10^3/uL (4.0-11.0)
[2020-09-08 08:25] LABS: CALCIUM 8.5 mg/dL (8.5-10.1); GFR 38.3; POTASSIUM 3.5 mmol/L (3.5-5.1)
[2020-09-08] MEDS: LACTOBACILLUS RHAMNOSUS GG 1 CAPSULE. PO SCH ×2 (08:28→21:00)
[2020-09-08] MEDS: ASPIRIN CHEWABLE 81 MG TABLET. PO SCH ×2 (08:29→21:00)
[2020-09-08] MEDS: DOCUSATE SODIUM 100 MG CAPSULE. PO SCH ×3 (08:29→21:00)
[2020-09-08] MEDS: ASCORBIC ACID 500 MG TABLET PO SCH (08:29)
[2020-09-08] MEDS: ATORVASTATIN CALCIUM 40 MG TABLET. PO SCH (08:29)
[2020-09-08] MEDS: BUMETANIDE 1 MG/4 ML VIAL. IV SCH ×2 (08:43→13:18)
[2020-09-08 09:29] LABS: % BANDS 1 % (0-9); % BASOS 4 % (0-3); % EOS 5 % (0-5); % LYMPHS 5 % (24-48); % MONOS 5 % (0-10); % SEGS 80 % (35-66); NUCLEATED RBC 3
[2020-09-08 09:31] LABS: PLT ESTIMATE ADEQUATE (ADEQUATE); POLYCHROMASIA SLIGHT
[2020-09-08 09:32] LABS: ANISOCYTOSIS MOD
[2020-09-08 09:46] LABS: PROTHROMBIN TIME PATIENT 27.5 SEC (11.7-14.0)
--- NOTE | 2020-09-08 10:07 | NUR ---
Pharmacy Warfarin Dosing Note S:Pharmacy consulted to assist with anticoagulation therapy started with target INR: 2 -3 O:MAMTA MACIAS is a 89 year old M with Atrial Fibrillation LABS: Last INR: 2.6 Last HGB: 10.2 Last HCT: 33.2 Last PLT: 412 Last dose of held on 09/07/20 Previous Regimen: 6 mg Mon,Th; 4 mg all other days Vitamin K given: no Drug Interaction Changes: New Interacting Drug Ongoing Drug Interactions: ZOSYN A:INR of 2.6 is within desired range. Target range for this patient is: 2 -3 P: Warfarin dose: 4 mg Today at 1600 Bridge Therapy: None Next INR due 09/09/20 Pharmacy anticoagulation service will continue to follow. REGINA WANG RPH, 09/08/20 1007
--- NOTE | 2020-09-08 10:14 | PDOC ---
PROGRESS NOTES Date of Service: DATE: 09/08/20 TIME: 10:14 Chief Complaint Chief Complaint impression Acute on chronic combined systolic and diastolic heart failure. We will diurese with intravenous Bumex. 2D echo in September 2019 showed LVEF 40%. Coronary artery disease: Patient has known chronic total occlusion of LAD with collaterals, presently stable and chest pain-free. Lexiscan nuclear stress test in March 2020 showed large inferior infarct without any significant ischemia. Continue current secondary prevention measures. Sick sinus syndrome s/p permanent pacemaker implantation with more recent generator change. Recent device check showed normal function. He denied any syncope or near syncope. Permanent atrial fibrillation: Telemetry showed demand pacing. Patient on warfarin for stroke prophylaxis. Check PT/INR. Hypertension - Controlled. Will back off on his BB. He is actually on 100mg metoprolol tartrate Hyperlipidemia - Continue statin Diabetes mellitus type 2 - diet controlled, A1c previously 5.8 Severe Protein calorie malnutrition - severe given his edema and albumin. 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 Normal LV systolic function. EF 60% plan FEN - Cardiac ADA diet PPX - warfarin CODE - FULL Dispo - inpatient CVC for CHF exacerbation History of Present Illness History of Present Illness Mr Rivero is an 89yo M w/ PMHx DM2, HLD, HTN, afib, SSS s/p PPM, CAD, chronic systolic CHF who presented to ED c/o for weakness and dyspnea. Also complains of dyspnea worsening over weeks, with a few days of noted LE edema is worse with cough in the morning that is productive of white sputum. he has cough at times, He denied any chest pain, palpitations or syncope. Given 1 dose iv lasix in ED 40mg, < 500 uop after, still feeling short of breath. He follows with Dr. Santoyo and has been recently changed to Bumex last month. Chest radiograph with interstitial edema. Labs with WBC 27.3, Hb 10.3, platelets 454, NA 145, K4.7, BUN 58, CR 2.1, INR 3.2 TSH 5.5, digoxin level 2.2, albumin 2.7, bilirubin 2.2, AST 56 ALT 12 alkaline phosphatase 138 NT proBNP 31,348 Admitted for further treatment. 09/04: Afebrile. WBC still high. Reasonably good urine output. A little confused Febrile. 1.3 L urine output. Still with very swollen lower extremities. No chest pain little bit short of breath. Not on O2 today. 09-06 Still with very swollen lower extremities. No chest pain little bit short of breath. Acute on chronic combined systolic and diastolic heart failure. We will diurese with intravenous Bumex. 2D echo in September 2019 showed LVEF 40%. Coronary artery disease: Patient has known chronic total occlusion of LAD with collaterals, presently stable and chest pain-free. Lexiscan nuclear stress test in March 2020 showed large inferior infarct without any significant ischemia. Continue current secondary prevention measures. Sick sinus syndrome s/p permanent pacemaker implantation with more recent generator change. Recent device check showed normal function. He denied any syncope or near syncope. Permanent atrial fibrillation: Telemetry showed demand pacing. Patient on warfarin for stroke prophylaxis. Check PT/INR. Hypertension - Controlled. Will back off on his BB. He is actually on 100mg metoprolol tartrate Hyperlipidemia - Continue statin Diabetes mellitus type 2 - diet controlled, A1c previously 5.8 Severe Protein calorie malnutrition - severe given his edema and albumin. tician to see D/W RN 09/07 CR 2.2 LESS swollen lower extremities. No chest pain little bit short of breath. Acute on chronic combined systolic and diastolic heart failure. We will diurese with intravenous Bumex. 2D echo in September 2019 showed LVEF 40%. Coronary artery disease: Patient has known chronic total occlusion of LAD with collaterals, presently stable and chest pain-free. Lexiscan nuclear stress test in March 2020 showed large inferior infarct without any significant ischemia. Continue current secondary prevention measures. Sick sinus syndrome s/p permanent pacemaker implantation with more recent generator change. Recent device check showed normal function. He denied any syncope or near syncope. Permanent atrial fibrillation: Telemetry showed demand pacing. Patient on warfarin for stroke prophylaxis. Check PT/INR. Hypertension - Controlled. Will back off on his BB. He is actually on 100mg metoprolol tartrate Hyperlipidemia - Continue statin Diabetes mellitus type 2 - diet controlled, A1c previously 5.8 Severe Protein calorie malnutrition - severe given his edema and albumin. 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 clinically stable, CP free. 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 Permanent AFIB; rate controlled with BB. on warfarin for stroke prevention. 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 No chest pain little bit short of breath. Acute on chronic combined systolic and diastolic heart failure. We will diurese with intravenous Bumex. 2D echo in September 2019 showed LVEF 40%. Coronary artery disease: Patient has known chronic total occlusion of LAD with collaterals, presently stable and chest pain-free. Lexiscan nuclear stress test in March 2020 showed large inferior infarct without any significant ischemia. Continue current secondary prevention measures. Sick sinus syndrome s/p permanent pacemaker implantation with more recent generator change. Recent device check showed normal function. He denied any syncope or near syncope. Permanent atrial fibrillation: Telemetry showed demand pacing. Patient on warfarin for stroke prophylaxis. Check PT/INR. Hypertension - Controlled. Will back off on his BB. He is actually on 100mg metoprolol tartrate Hyperlipidemia - Continue statin Diabetes mellitus type 2 - diet controlled, A1c previously 5.8 Severe Protein calorie malnutrition - severe given his edema and albumin. General Manager In Training to see D/W RN 37 min pt exam, chart review, > 50% of time spent with exam, chart review, pt care coordination Vitals Vitals Vital Signs Date Time Temp Pulse Resp B/P (MAP) Pulse Ox O2 Delivery O2 Flow Rate FiO2 09/08/20 07:30 96 Room Air 09/08/20 03:50 98.1 70 18 122/51 (74) 98.1 Physical Exam Physical Exam HEENT: Atraumatic, EOMI, Mucous membr. moist/pink, Other (upper dentures) Lungs: Other (very limited volume breaths, no wheeze, distant sounds) Abdomen: Normal bowel sounds, Soft Extremities: No clubbing, Other (2+ edema, no breakdown) Skin: No rashes, No breakdown, No significant lesion Neuro: Normal speech, Normal tone, Sensation intact General: mild distress Heart: Regular rate Lungs: Crackles (bases ) Abdomen: Normal bowel sounds Extremities: No clubbing, No cyanosis, Other (2+ edema, no breakdown) Skin: No rashes, No breakdown, No significant lesion Labs LABS Laboratory Tests Test 09/07/20 12:10 09/07/20 17:29 09/08/20 07:26 09/08/20 07:45 Glucose (Fingerstick) 110 mg/dL (70-99) 108 mg/dL (70-99) 86 mg/dL (70-99) White Blood Count 30.3 x10^3/uL (4.0-11.0) Red Blood Count 3.64 x10^6/uL (4.30-5.70) Hemoglobin 10.2 g/dL (13.0-17.5) Hematocrit 33.2 % (39.0-53.0) Mean Corpuscular Volume 91 fL (79-100) Mean Corpuscular Hemoglobin 28 pg (25-35) Mean Corpuscular Hemoglobin Concent 31 g/dL (31-37) Red Cell Distribution Width 25.2 % (11.5-14.5) Platelet Count 412 x10^3/uL (140-400) Neutrophils (%) (Auto) 84 % (31-73) Lymphocytes (%) (Auto) 7 % (24-48) Monocytes (%) (Auto) 3 % (0-9) Eosinophils (%) (Auto) 1 % (0-3) Basophils (%) (Auto) 6 % (0-3) Neutrophils # (Auto) 25.4 x10^3/uL (1.8-7.7) Lymphocytes # (Auto) 2.1 x10^3/uL (1.0-4.8) Monocytes # (Auto) 0.8 x10^3/uL (0.0-1.1) Eosinophils # (Auto) 0.4 x10^3/uL (0.0-0.7) Basophils # (Auto) 1.7 x10^3/uL (0.0-0.2) Segmented Neutrophils % 80 % (35-66) Band Neutrophils % 1 % (0-9) Lymphocytes % 5 % (24-48) Monocytes % 5 % (0-10) Eosinophils % 5 % (0-5) Basophils % 4 % (0-3) Nucleated Red Blood Cells 3 Dohle Bodies Few Platelet Estimate Adequate (ADEQUATE) Large Platelets Occ Polychromasia Slight Basophilic Stippling Present Anisocytosis Mod Prothrombin Time 27.5 SEC (11.7-14.0) Prothromb Time International Ratio 2.6 (0.8-1.1) Sodium Level 147 mmol/L (136-145) Potassium Level 3.5 mmol/L (3.5-5.1) Chloride Level 110 mmol/L (98-107) Carbon Dioxide Level 25 mmol/L (21-32) Anion Gap 12 (6-14) Blood Urea Nitrogen 54 mg/dL (8-26) Creatinine 2.0 mg/dL (0.7-1.3) Estimated GFR (Cockcroft-Gault) 38.3 Glucose Level 91 mg/dL (70-99) Calcium Level 8.5 mg/dL (8.5-10.1) Assessment and Plan Assessmemt and Plan Problems Medical Problems: (1) CHF (congestive heart failure) Status: Acute Comment Review of Relevant I have reviewed the following items tiffany (where applicable) has been applied. Labs Laboratory Tests Test 09/06/20 11:22 09/06/20 11:30 09/06/20 16:26 09/06/20 20:51 Glucose (Fingerstick) 88 mg/dL (70-99) 90 mg/dL (70-99) 94 mg/dL (70-99) Prothrombin Time 36.3 SEC (11.7-14.0) Prothromb Time International Ratio 3.6 (0.8-1.1) Test 09/07/20 07:10 09/07/20 07:25 09/07/20 12:10 09/07/20 17:29 White Blood Count 29.0 x10^3/uL (4.0-11.0) Red Blood Count 3.62 x10^6/uL (4.30-5.70) Hemoglobin 10.2 g/dL (13.0-17.5) Hematocrit 32.8 % (39.0-53.0) Mean Corpuscular Volume 90 fL (79-100) Mean Corpuscular Hemoglobin 28 pg (25-35) Mean Corpuscular Hemoglobin Concent 31 g/dL (31-37) Red Cell Distribution Width 25.7 % (11.5-14.5) Platelet Count 431 x10^3/uL (140-400) Prothrombin Time 33.6 SEC (11.7-14.0) Prothromb Time International Ratio 3.3 (0.8-1.1) Sodium Level 147 mmol/L (136-145) Potassium Level 3.7 mmol/L (3.5-5.1) Chloride Level 111 mmol/L (98-107) Carbon Dioxide Level 24 mmol/L (21-32) Anion Gap 12 (6-14) Blood Urea Nitrogen 56 mg/dL (8-26) Creatinine 2.2 mg/dL (0.7-1.3) Estimated GFR (Cockcroft-Gault) 34.4 Glucose Level 89 mg/dL (70-99) Calcium Level 8.6 mg/dL (8.5-10.1) Glucose (Fingerstick) 88 mg/dL (70-99) 110 mg/dL (70-99) 108 mg/dL (70-99) Test 09/08/20 07:26 09/08/20 07:45 Glucose (Fingerstick) 86 mg/dL (70-99) White Blood Count 30.3 x10^3/uL (4.0-11.0) Red Blood Count 3.64 x10^6/uL (4.30-5.70) Hemoglobin 10.2 g/dL (13.0-17.5) Hematocrit 33.2 % (39.0-53.0) Mean Corpuscular Volume 91 fL (79-100) Mean Corpuscular Hemoglobin 28 pg (25-35) Mean Corpuscular Hemoglobin Concent 31 g/dL (31-37) Red Cell Distribution Width 25.2 % (11.5-14.5) Platelet Count 412 x10^3/uL (140-400) Neutrophils (%) (Auto) 84 % (31-73) Lymphocytes (%) (Auto) 7 % (24-48) Monocytes (%) (Auto) 3 % (0-9) Eosinophils (%) (Auto) 1 % (0-3) Basophils (%) (Auto) 6 % (0-3) Neutrophils # (Auto) 25.4 x10^3/uL (1.8-7.7) Lymphocytes # (Auto) 2.1 x10^3/uL (1.0-4.8) Monocytes # (Auto) 0.8 x10^3/uL (0.0-1.1) Eosinophils # (Auto) 0.4 x10^3/uL (0.0-0.7) Basophils # (Auto) 1.7 x10^3/uL (0.0-0.2) Segmented Neutrophils % 80 % (35-66) Band Neutrophils % 1 % (0-9) Lymphocytes % 5 % (24-48) Monocytes % 5 % (0-10) Eosinophils % 5 % (0-5) Basophils % 4 % (0-3) Nucleated Red Blood Cells 3 Dohle Bodies Few Platelet Estimate Adequate (ADEQUATE) Large Platelets Occ Polychromasia Slight Basophilic Stippling Present Anisocytosis Mod Prothrombin Time 27.5 SEC (11.7-14.0) Prothromb Time International Ratio 2.6 (0.8-1.1) Sodium Level 147 mmol/L (136-145) Potassium Level 3.5 mmol/L (3.5-5.1) Chloride Level 110 mmol/L (98-107) Carbon Dioxide Level 25 mmol/L (21-32) Anion Gap 12 (6-14) Blood Urea Nitrogen 54 mg/dL (8-26) Creatinine 2.0 mg/dL (0.7-1.3) Estimated GFR (Cockcroft-Gault) 38.3 Glucose Level 91 mg/dL (70-99) Calcium Level 8.5 mg/dL (8.5-10.1) Laboratory Tests Test 09/07/20 12:10 09/07/20 17:29 09/08/20 07:26 09/08/20 07:45 Glucose (Fingerstick) 110 mg/dL (70-99) 108 mg/dL (70-99) 86 mg/dL (70-99) White Blood Count 30.3 x10^3/uL (4.0-11.0) Red Blood Count 3.64 x10^6/uL (4.30-5.70) Hemoglobin 10.2 g/dL (13.0-17.5) Hematocrit 33.2 % (39.0-53.0) Mean Corpuscular Volume 91 fL (79-100) Mean Corpuscular Hemoglobin 28 pg (25-35) Mean Corpuscular Hemoglobin Concent 31 g/dL (31-37) Red Cell Distribution Width 25.2 % (11.5-14.5) Platelet Count 412 x10^3/uL (140-400) Neutrophils (%) (Auto) 84 % (31-73) Lymphocytes (%) (Auto) 7 % (24-48) Monocytes (%) (Auto) 3 % (0-9) Eosinophils (%) (Auto) 1 % (0-3) Basophils (%) (Auto) 6 % (0-3) Neutrophils # (Auto) 25.4 x10^3/uL (1.8-7.7) Lymphocytes # (Auto) 2.1 x10^3/uL (1.0-4.8) Monocytes # (Auto) 0.8 x10^3/uL (0.0-1.1) Eosinophils # (Auto) 0.4 x10^3/uL (0.0-0.7) Basophils # (Auto) 1.7 x10^3/uL (0.0-0.2) Segmented Neutrophils % 80 % (35-66) Band Neutrophils % 1 % (0-9) Lymphocytes % 5 % (24-48) Monocytes % 5 % (0-10) Eosinophils % 5 % (0-5) Basophils % 4 % (0-3) Nucleated Red Blood Cells 3 Dohle Bodies Few Platelet Estimate Adequate (ADEQUATE) Large Platelets Occ Polychromasia Slight Basophilic Stippling Present Anisocytosis Mod Prothrombin Time 27.5 SEC (11.7-14.0) Prothromb Time International Ratio 2.6 (0.8-1.1) Sodium Level 147 mmol/L (136-145) Potassium Level 3.5 mmol/L (3.5-5.1) Chloride Level 110 mmol/L (98-107) Carbon Dioxide Level 25 mmol/L (21-32) Anion Gap 12 (6-14) Blood Urea Nitrogen 54 mg/dL (8-26) Creatinine 2.0 mg/dL (0.7-1.3) Estimated GFR (Cockcroft-Gault) 38.3 Glucose Level 91 mg/dL (70-99) Calcium Level 8.5 mg/dL (8.5-10.1) Microbiology 09/03/20 Blood Culture - Preliminary, Resulted NO GROWTH AFTER 4 DAYS Medications Current Medications Furosemide (Lasix) 40 mg 1X ONCE IVP Last administered on 09/03/20at 21:07; Start 09/03/20 at 21:00; Stop 09/03/20 at 21:01; Status DC Piperacillin Sod/ Tazobactam Sod 3.375 gm/Sodium Chloride 50 ml @ 100 mls/hr 1X ONCE IV Last administered on 09/03/20at 21:08; Start 09/03/20 at 21:00; Stop 09/03/20 at 21:29; Status DC Ondansetron HCl (Zofran) 4 mg PRN Q8HRS PRN IV NAUSEA/VOMITING; Start 09/03/20 at 21:00; Stop 09/04/20 at 20:59; Status DC Morphine Sulfate (Morphine Sulfate) 2 mg PRN Q2HR PRN IV PAIN; Start 09/03/20 at 21:00; Stop 09/04/20 at 20:59; Status DC Acetaminophen (Tylenol) 650 mg PRN Q4HRS PRN PO FEVER > 100.3'F; Start 09/03/20 at 21:00; Stop 09/04/20 at 20:59; Status DC Ascorbic Acid (Vitamin C) 250 mg DAILY PO Last administered on 09/08/20at 08:29; Start 09/04/20 at 09:00 Aspirin (Aspirin Chewable) 81 mg BID PO Last administered on 09/08/20at 08:29; Start 09/04/20 at 09:00 Atorvastatin Calcium (Lipitor) 40 mg DAILY PO Last administered on 09/08/20at 08:29; Start 09/04/20 at 09:00 Bumetanide (Bumex) 1 mg BID92 PO ; Start 09/04/20 at 09:00; Stop 09/04/20 at 07:53; Status DC Digoxin (Lanoxin) 125 mcg DAILY PO ; Start 09/04/20 at 09:00; Stop 09/04/20 at 07:47; Status DC Docusate Sodium (Colace) 100 mg TID PO Last administered on 09/08/20 08:29; Start 09/04/20 at 09:00 Acetaminophen/ Hydrocodone Bitart (Lortab 5/325) 1 tab PRN Q6HRS PRN PO PAIN Last administered on 09/07/20at 20:32; Start 09/03/20 at 22:15 Metoprolol Tartrate (Lopressor) 100 mg DAILY PO ; Start 09/04/20 at 09:00; Stop 09/04/20 at 07:29; Status DC Warfarin Sodium (Coumadin Per Pharmacy) 1 each PRN DAILY PRN MC SEE COMMENTS Last administered on 09/08/20at 10:07; Start 09/03/20 at 22:15 Piperacillin Sod/ Tazobactam Sod (Zosyn Per Pharmacy) 1 each PRN DAILY PRN MC SEE COMMENTS; Start 09/03/20 at 22:15 Albuterol/ Ipratropium (Duoneb) 3 ml RTQID NEB Last administered on 09/08/20at 07:33; Start 09/04/20 at 08:00 Prednisone (Prednisone) 40 mg 1X ONCE PO Last administered on 09/03/20at 22:41; Start 09/03/20 at 22:15; Stop 09/03/20 at 22:21; Status DC Insulin Human Lispro (HumaLOG) 0-7 UNITS TIDWMEALS SQ Last administered on at 12:32; Start 09/04/20 at 08:00 Dextrose (Dextrose 50%-Water Syringe) 12.5 gm PRN Q15MIN PRN IV SEE COMMENTS; Start 09/03/20 at 22:15 Piperacillin Sod/ Tazobactam Sod 3.375 gm/Sodium Chloride 50 ml @ 100 mls/hr Q6HRS IV Last administered on 09/08/20at 06:22; Start 09/04/20 at 06:00 Warfarin Sodium (Coumadin - No Dose Today) 1 each 1X WARF ONCE MC Last administered on 09/04/20at 16:00; Start 09/04/20 at 16:00; Stop 09/04/20 at 16:01; Status DC Bumetanide (Bumex) 2.5 mg BID92 IV Last administered on 09/04/20at 15:23; Start 09/04/20 at 09:00; Stop 09/05/20 at 07:46; Status DC Lactobacillus Rhamnosus (Culturelle) 1 cap BID PO Last administered on 09/08/20at 08:28; Start 09/04/20 at 21:00 Tamsulosin HCl (Flomax) 0.4 mg QHS PO Last administered on 09/07/20at 20:30; Start 09/05/20 at 21:00 Bumetanide (Bumex) 1 mg BID92 IV Last administered on 6/2/21at 08:43; Start 09/05/20 at 09:00 Potassium Bicarbonate (Potassium Effervescent Tablet) 40 meq 1X ONCE PO Last administered on 09/05/20at 09:06; Start 09/05/20 at 08:00; Stop 09/05/20 at 08:01; Status DC Warfarin Sodium (Coumadin - No Dose Today) 1 each 1X WARF ONCE MC Last administered on 09/05/20at 15:58; Start 09/05/20 at 16:00; Stop 09/05/20 at 16:01; Status DC Warfarin Sodium (Coumadin - No Dose Today) 1 each 1X WARF ONCE MC Last administered on 09/06/20at 16:00; Start 09/06/20 at 16:00; Stop 09/06/20 at 16:01; Status DC Warfarin Sodium (Coumadin - No Dose Today) 1 each 1X WARF ONCE MC ; Start 09/07/20 at 16:00; Stop 09/07/20 at 16:01; Status DC Bisacodyl (Dulcolax Supp) 10 mg 1X ONCE IN ; Start 09/07/20 at 13:00; Stop 09/07/20 at 18:32; Status DC Bisacodyl (Dulcolax Supp) 10 mg PRN DAILY PRN IN CONSTIPATION Last administered on 09/08/20at 08:29; Start 09/07/20 at 18:45 Warfarin Sodium (Coumadin - No Dose Today) 1 each 1X WARF ONCE MC ; Start 09/08/20 at 16:00; Stop 09/08/20 at 16:01; Status Cancel Warfarin Sodium (Coumadin) 4 mg 1X WARF ONCE PO ; Start 09/08/20 at 16:00; Stop 09/08/20 at 16:01 Active Scripts Active [place] 5-325 Tablet (Acetaminophen/Hydrocodone Bitart) 1 Each Tablet 7.5 Mg PO PRN Q6HRS PRN 6 Days LAST DOSE GIVEN: Reported Warfarin Sodium 2 Mg Tablet 4 Mg PO Warfarin Sodium 2 Mg Tablet 6 Mg PO QMTH Bumetanide 1 Mg Tablet 1 Mg PO BID Colace (Docusate Sodium) 100 Mg Capsule 1 Cap PO TID Metamucil Powder (Psyllium Seed (with Sugar)) 575 Gm Powder 575 Gm PO DAILY Atorvastatin Calcium 40 Mg Tablet 1 Tab PO DAILY Metoprolol Tartrate 100 Mg Tablet 100 Mg PO DAILY Tamsulosin Hcl 0.4 Mg Cap.er.24h 0.4 Mg PO HS DAILY Vitamin C (Ascorbic Acid) 500 Mg Tablet 250 Mg PO DAILY Aspirin 81 Mg Tab.chew 81 Mg PO BID Lanoxin (Digoxin) 125 Mcg Tablet 125 Mcg PO DAILY Vitals/I & O Vital Sign - Last 24 Hours 09/07/20 09/07/20 09/07/20 09/07/20 11:00 11:55 13:44 15:00 Temp 97.6 98.8 97.6 98.8 Pulse 84 67 Resp 16 16 16 B/P (MAP) 105/48 (67) 106/43 (64) Pulse Ox 100 100 98 O2 Delivery Room Air Room Air Room Air Room Air 09/07/20 09/07/20 09/07/20 09/07/20 15:20 16:01 19:35 20:00 Temp 97.8 97.8 Pulse 82 Resp 16 18 B/P (MAP) 122/60 (80) Pulse Ox 98 98 O2 Delivery Room Air Room Air Room Air Room Air 09/07/20 09/07/20 09/07/20 09/07/20 20:32 20:45 21:02 22:40 Temp 97.7 97.7 Pulse 78 Resp 18 B/P (MAP) 109/61 (77) Pulse Ox 98 98 98 98 O2 Delivery Room Air Room Air Room Air Room Air 09/08/20 09/08/20 03:50 07:30 Temp 98.1 98.1 Pulse 70 Resp 18 B/P (MAP) 122/51 (74) Pulse Ox 96 96 O2 Delivery Room Air Room Air Intake and Output 09/07/20 09/07/20 09/08/20 15:00 23:00 07:00 Intake Total 420 ml 650 ml 150 ml Balance 420 ml 650 ml 150 ml Justicifation of Admission Dx: Justifications for Admission: Justification of Admission Dx: Yes JAYLIN LAGUERRE MD Sep 08, 2020 10:14
--- NOTE | 2020-09-08 10:31 | PDOC ---
PULMONARY PROGRESS NOTES DATE: 09/08/20 TIME: 10:31 Subjective Pt. remains on room air reports back pain and non-productive cough low grade fever overnight no overnight events Vitals Vital Signs Date Time Temp Pulse Resp B/P (MAP) Pulse Ox O2 Delivery O2 Flow Rate FiO2 09/08/20 07:30 96 Room Air 09/08/20 07:00 98.4 70 16 113/49 (70) 98.4 ROS: No Nausea, No Chest Pain, No Abdominal Pain, No Increase Cough General: Alert, No acute distress Lungs: Crackles (bases ) Cardiovascular: S1, S2 Abdomen: Soft, Non-tender Neuro Exam: Alert, Oriented Extremities: Other (edema) Skin: Warm, Dry Labs Laboratory Tests Test 09/06/20 11:22 09/06/20 11:30 09/06/20 16:26 09/06/20 20:51 Glucose (Fingerstick) 88 mg/dL (70-99) 90 mg/dL (70-99) 94 mg/dL (70-99) Prothrombin Time 36.3 SEC (11.7-14.0) Prothromb Time International Ratio 3.6 (0.8-1.1) Test 09/07/20 07:10 09/07/20 07:25 09/07/20 12:10 09/07/20 17:29 White Blood Count 29.0 x10^3/uL (4.0-11.0) Red Blood Count 3.62 x10^6/uL (4.30-5.70) Hemoglobin 10.2 g/dL (13.0-17.5) Hematocrit 32.8 % (39.0-53.0) Mean Corpuscular Volume 90 fL (79-100) Mean Corpuscular Hemoglobin 28 pg (25-35) Mean Corpuscular Hemoglobin Concent 31 g/dL (31-37) Red Cell Distribution Width 25.7 % (11.5-14.5) Platelet Count 431 x10^3/uL (140-400) Prothrombin Time 33.6 SEC (11.7-14.0) Prothromb Time International Ratio 3.3 (0.8-1.1) Sodium Level 147 mmol/L (136-145) Potassium Level 3.7 mmol/L (3.5-5.1) Chloride Level 111 mmol/L (98-107) Carbon Dioxide Level 24 mmol/L (21-32) Anion Gap 12 (6-14) Blood Urea Nitrogen 56 mg/dL (8-26) Creatinine 2.2 mg/dL (0.7-1.3) Estimated GFR (Cockcroft-Gault) 34.4 Glucose Level 89 mg/dL (70-99) Calcium Level 8.6 mg/dL (8.5-10.1) Glucose (Fingerstick) 88 mg/dL (70-99) 110 mg/dL (70-99) 108 mg/dL (70-99) Test 09/08/20 07:26 09/08/20 07:45 Glucose (Fingerstick) 86 mg/dL (70-99) White Blood Count 30.3 x10^3/uL (4.0-11.0) Red Blood Count 3.64 x10^6/uL (4.30-5.70) Hemoglobin 10.2 g/dL (13.0-17.5) Hematocrit 33.2 % (39.0-53.0) Mean Corpuscular Volume 91 fL (79-100) Mean Corpuscular Hemoglobin 28 pg (25-35) Mean Corpuscular Hemoglobin Concent 31 g/dL (31-37) Red Cell Distribution Width 25.2 % (11.5-14.5) Platelet Count 412 x10^3/uL (140-400) Neutrophils (%) (Auto) 84 % (31-73) Lymphocytes (%) (Auto) 7 % (24-48) Monocytes (%) (Auto) 3 % (0-9) Eosinophils (%) (Auto) 1 % (0-3) Basophils (%) (Auto) 6 % (0-3) Neutrophils # (Auto) 25.4 x10^3/uL (1.8-7.7) Lymphocytes # (Auto) 2.1 x10^3/uL (1.0-4.8) Monocytes # (Auto) 0.8 x10^3/uL (0.0-1.1) Eosinophils # (Auto) 0.4 x10^3/uL (0.0-0.7) Basophils # (Auto) 1.7 x10^3/uL (0.0-0.2) Segmented Neutrophils % 80 % (35-66) Band Neutrophils % 1 % (0-9) Lymphocytes % 5 % (24-48) Monocytes % 5 % (0-10) Eosinophils % 5 % (0-5) Basophils % 4 % (0-3) Nucleated Red Blood Cells 3 Dohle Bodies Few Platelet Estimate Adequate (ADEQUATE) Large Platelets Occ Polychromasia Slight Basophilic Stippling Present Anisocytosis Mod Prothrombin Time 27.5 SEC (11.7-14.0) Prothromb Time International Ratio 2.6 (0.8-1.1) Sodium Level 147 mmol/L (136-145) Potassium Level 3.5 mmol/L (3.5-5.1) Chloride Level 110 mmol/L (98-107) Carbon Dioxide Level 25 mmol/L (21-32) Anion Gap 12 (6-14) Blood Urea Nitrogen 54 mg/dL (8-26) Creatinine 2.0 mg/dL (0.7-1.3) Estimated GFR (Cockcroft-Gault) 38.3 Glucose Level 91 mg/dL (70-99) Calcium Level 8.5 mg/dL (8.5-10.1) Laboratory Tests Test 09/07/20 12:10 09/07/20 17:29 09/08/20 07:26 09/08/20 07:45 Glucose (Fingerstick) 110 mg/dL (70-99) 108 mg/dL (70-99) 86 mg/dL (70-99) White Blood Count 30.3 x10^3/uL (4.0-11.0) Red Blood Count 3.64 x10^6/uL (4.30-5.70) Hemoglobin 10.2 g/dL (13.0-17.5) Hematocrit 33.2 % (39.0-53.0) Mean Corpuscular Volume 91 fL (79-100) Mean Corpuscular Hemoglobin 28 pg (25-35) Mean Corpuscular Hemoglobin Concent 31 g/dL (31-37) Red Cell Distribution Width 25.2 % (11.5-14.5) Platelet Count 412 x10^3/uL (140-400) Neutrophils (%) (Auto) 84 % (31-73) Lymphocytes (%) (Auto) 7 % (24-48) Monocytes (%) (Auto) 3 % (0-9) Eosinophils (%) (Auto) 1 % (0-3) Basophils (%) (Auto) 6 % (0-3) Neutrophils # (Auto) 25.4 x10^3/uL (1.8-7.7) Lymphocytes # (Auto) 2.1 x10^3/uL (1.0-4.8) Monocytes # (Auto) 0.8 x10^3/uL (0.0-1.1) Eosinophils # (Auto) 0.4 x10^3/uL (0.0-0.7) Basophils # (Auto) 1.7 x10^3/uL (0.0-0.2) Segmented Neutrophils % 80 % (35-66) Band Neutrophils % 1 % (0-9) Lymphocytes % 5 % (24-48) Monocytes % 5 % (0-10) Eosinophils % 5 % (0-5) Basophils % 4 % (0-3) Nucleated Red Blood Cells 3 Dohle Bodies Few Platelet Estimate Adequate (ADEQUATE) Large Platelets Occ Polychromasia Slight Basophilic Stippling Present Anisocytosis Mod Prothrombin Time 27.5 SEC (11.7-14.0) Prothromb Time International Ratio 2.6 (0.8-1.1) Sodium Level 147 mmol/L (136-145) Potassium Level 3.5 mmol/L (3.5-5.1) Chloride Level 110 mmol/L (98-107) Carbon Dioxide Level 25 mmol/L (21-32) Anion Gap 12 (6-14) Blood Urea Nitrogen 54 mg/dL (8-26) Creatinine 2.0 mg/dL (0.7-1.3) Estimated GFR (Cockcroft-Gault) 38.3 Glucose Level 91 mg/dL (70-99) Calcium Level 8.5 mg/dL (8.5-10.1) Medications Active Scripts Medications Dose Route/Sig Max Daily Dose Days Date Category Dose Instructions Bumetanide 1 Mg Tablet 1 Mg PO BID 07/28/20 Reported [place] 5-325 Tablet (Acetaminophen/Hydrocodone Bitart) 1 Each Tablet 7.5 Mg PO PRN Q6HRS PRN 6 09/20/18 Rx LAST DOSE GIVEN: Colace (Docusate Sodium) 100 Mg Capsule 1 Cap PO TID 09/09/18 Reported Metamucil Powder (Psyllium Seed (with Sugar)) 575 Gm Powder 575 Gm PO DAILY 09/09/18 Reported Atorvastatin Calcium 40 Mg Tablet 1 Tab PO DAILY 08/12/18 Reported Metoprolol Tartrate 100 Mg Tablet 100 Mg PO DAILY 11/08/17 Reported Tamsulosin Hcl 0.4 Mg Cap.er.24h 0.4 Mg PO HS DAILY 11/08/17 Reported Vitamin C (Ascorbic Acid) 500 Mg Tablet 250 Mg PO DAILY 05/08/14 Reported Warfarin Sodium 5 Mg Tablet 1.5 Tab PO QWE 04/18/14 Reported Warfarin Sodium 5 Mg Tablet 1 Tab PO DAILY EXCEPT WED. 04/18/14 Reported Aspirin 81 Mg Tab.chew 81 Mg PO BID 08/22/13 Reported Lanoxin (Digoxin) 125 Mcg Tablet 125 Mcg PO DAILY 08/22/13 Reported Impression . IMPRESSION: 1. Dyspnea secondary to acute systolic and diastolic congestive heart failure--improving on room air 2. Abnormal chest x-ray. 3. 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 4. Cardiomyopathy. 5. 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 6. Obstructive sleep apnea-hypopnea syndrome, CPAP noncompliant. 7. Paroxysmal atrial fibrillation, on Coumadin. 8. Acute kidney injury/chronic kidney disease. Plan . RECOMMENDATIONS: Titrate FiO2 to keep O2 saturation 92%, currently yon room air NEBS Follow cardiology recs----Echocardiogram 2019 ejection fraction of 40% Follow nephrology recs -- bumex currently on hold-- monitor renal function ongoing education of importance of CPAP, pt. still declines and He understands the risks of not treating obstructive sleep apnea-hypopnea syndrome. Continue Coumadin. Keep INR between 2 and 3. Continue antibiotic, zosyn DVT/GI PPX D/W BREN ONTIVEROS MD Sep 08, 2020 10:31
[2020-09-08 11:00] VITALS: BP 118/57
--- NOTE | 2020-09-08 11:53 | PDOC ---
DATE OF SERVICE DATE: 09/08/20 TIME: 11:53 SUBJECTIVE ROS Stable, On RA No complaints by patient, denies SOB Family at bedside OBJECTIVE Vital Signs Vital Signs Date Time Temp Pulse Resp B/P (MAP) Pulse Ox O2 Delivery O2 Flow Rate FiO2 09/08/20 11:21 98 Room Air 09/08/20 11:00 98.4 90 16 118/57 (77) 98.4 I & 0 Intake and Output 09/08/20 07:00 Intake Total 1220 ml Balance 1220 ml Intake Oral 1070 ml IV Total 150 ml # Voids 5 PHYSICAL EXAM Physical Exam Gen NAD , HEEN OM moist, hard of hearing Neck Supple Lungs decreased bases, Non labored CV S1`s2 Abd Soft, NT Neuro grossly Normal Skin No rash No CVA OR SP tenderness, No gaytan DIAGNOSIS/ASSESSMENT Assessment & Plan DION - suspect Cardiorenal , Cr elevated in July - admitted for CHF, prior labs in [facility] records with normal baseline Cr . Cr 2.2 today , stable, monitor, supportive care, Strict I/O ( not recorded) ,Daily standing wt Avoid nephrotoxins.. Diuretics per cardiology Acute on chronic systolic heart failure- appears compensated Echocardiogram 2019 ejection fraction of 40%. On Bumex at home HyperNatremia - Mild, On diuretics- card managing Exacerbation of COPD. Atrial fibrillation. History of coronary artery disease. Diabetes mellitus Hypertension; controlled COMMENT/RELEVANT DATA Meds Current Medications Medications (Trade) Dose Ordered Sig/Rakesh Start Time Stop Time Status Last Admin Dose Admin Acetaminophen (Tylenol) 650 mg PRN Q4HRS PRN 09/03/20 21:00 09/04/20 20:59 DC Acetaminophen/ Hydrocodone Bitart (Lortab 5/325) 1 tab PRN Q6HRS PRN 09/03/20 22:15 09/07/20 20:32 1 TAB Albuterol/ Ipratropium (Duoneb) 3 ml RTQID 09/04/20 08:00 09/08/20 11:21 3 ML Ascorbic Acid (Vitamin C) 250 mg DAILY 09/04/20 09:00 09/08/20 08:29 250 MG Aspirin (Aspirin Chewable) 81 mg BID 09/04/20 09:00 09/08/20 08:29 81 MG Atorvastatin Calcium (Lipitor) 40 mg DAILY 09/04/20 09:00 09/08/20 08:29 40 MG Bisacodyl (Dulcolax Supp) 10 mg PRN DAILY PRN 09/07/20 18:45 09/08/20 08:29 10 MG Bumetanide (Bumex) 1 mg [id number] 09/05/20 09:00 09/08/20 08:43 1 MG Dextrose (Dextrose 50%-Water Syringe) 12.5 gm PRN Q15MIN PRN 09/03/20 22:15 Digoxin (Lanoxin) 125 mcg DAILY 09/04/20 09:00 09/04/20 07:47 DC Docusate Sodium (Colace) 100 mg TID 09/04/20 09:00 09/08/20 08:29 100 MG Furosemide (Lasix) 40 mg 1X ONCE 09/03/20 21:00 09/03/20 21:01 DC 09/03/20 21:07 40 MG Insulin Human Lispro (HumaLOG) 0-7 UNITS TIDWMEALS 09/04/20 08:00 09/04/20 12:32 4 UNITS Lactobacillus Rhamnosus (Culturelle) 1 cap BID 09/04/20 21:00 09/08/20 08:28 1 CAP Metoprolol Tartrate (Lopressor) 100 mg DAILY 09/04/20 09:00 09/04/20 07:29 DC Morphine Sulfate (Morphine Sulfate) 2 mg PRN Q2HR PRN 09/03/20 21:00 09/04/20 20:59 DC Ondansetron HCl (Zofran) 4 mg PRN Q8HRS PRN 09/03/20 21:00 09/04/20 20:59 DC Piperacillin Sod/ Tazobactam Sod (Zosyn Per Pharmacy) 1 each PRN DAILY PRN 09/03/20 22:15 Piperacillin Sod/ Tazobactam Sod 3.375 gm/Sodium Chloride 50 ml @ 100 mls/hr Q6HRS 09/04/20 06:00 09/08/20 06:22 100 MLS/HR Potassium Bicarbonate (Potassium Effervescent Tablet) 40 meq 1X ONCE 09/05/20 08:00 09/05/20 08:01 DC 09/05/20 09:06 40 MEQ Prednisone (Prednisone) 40 mg 1X ONCE 09/03/20 22:15 09/03/20 22:21 DC 09/03/20 22:41 40 MG Tamsulosin HCl (Flomax) 0.4 mg QHS 09/05/20 21:00 09/07/20 20:30 0.4 MG Warfarin Sodium (Coumadin - No Dose Today) 1 each 1X WARF ONCE 09/08/20 16:00 09/08/20 16:01 Cancel Warfarin Sodium (Coumadin Per Pharmacy) 1 each PRN DAILY PRN 09/03/20 22:15 09/08/20 10:07 1 EACH Warfarin Sodium (Coumadin) 4 mg 1X WARF ONCE 09/08/20 16:00 09/08/20 16:01 Lab Laboratory Tests Test 09/07/20 12:10 09/07/20 17:29 09/08/20 07:26 09/08/20 07:45 Glucose (Fingerstick) 110 mg/dL (70-99) 108 mg/dL (70-99) 86 mg/dL (70-99) White Blood Count 30.3 x10^3/uL (4.0-11.0) Red Blood Count 3.64 x10^6/uL (4.30-5.70) Hemoglobin 10.2 g/dL (13.0-17.5) Hematocrit 33.2 % (39.0-53.0) Mean Corpuscular Volume 91 fL (79-100) Mean Corpuscular Hemoglobin 28 pg (25-35) Mean Corpuscular Hemoglobin Concent 31 g/dL (31-37) Red Cell Distribution Width 25.2 % (11.5-14.5) Platelet Count 412 x10^3/uL (140-400) Neutrophils (%) (Auto) 84 % (31-73) Lymphocytes (%) (Auto) 7 % (24-48) Monocytes (%) (Auto) 3 % (0-9) Eosinophils (%) (Auto) 1 % (0-3) Basophils (%) (Auto) 6 % (0-3) Neutrophils # (Auto) 25.4 x10^3/uL (1.8-7.7) Lymphocytes # (Auto) 2.1 x10^3/uL (1.0-4.8) Monocytes # (Auto) 0.8 x10^3/uL (0.0-1.1) Eosinophils # (Auto) 0.4 x10^3/uL (0.0-0.7) Basophils # (Auto) 1.7 x10^3/uL (0.0-0.2) Segmented Neutrophils % 80 % (35-66) Band Neutrophils % 1 % (0-9) Lymphocytes % 5 % (24-48) Monocytes % 5 % (0-10) Eosinophils % 5 % (0-5) Basophils % 4 % (0-3) Nucleated Red Blood Cells 3 Dohle Bodies Few Platelet Estimate Adequate (ADEQUATE) Large Platelets Occ Polychromasia Slight Basophilic Stippling Present Anisocytosis Mod Prothrombin Time 27.5 SEC (11.7-14.0) Prothromb Time International Ratio 2.6 (0.8-1.1) Sodium Level 147 mmol/L (136-145) Potassium Level 3.5 mmol/L (3.5-5.1) Chloride Level 110 mmol/L (98-107) Carbon Dioxide Level 25 mmol/L (21-32) Anion Gap 12 (6-14) Blood Urea Nitrogen 54 mg/dL (8-26) Creatinine 2.0 mg/dL (0.7-1.3) Estimated GFR (Cockcroft-Gault) 38.3 Glucose Level 91 mg/dL (70-99) Calcium Level 8.5 mg/dL (8.5-10.1) Results All relevant outside records, renal labs, imaging studies, telemetry/EKG's were reviewed. Justicifation of Admission Dx: Justifications for Admission: Justification of Admission Dx: Yes DEXTER ULLOA MD Sep 08, 2020 11:53
--- NOTE | 2020-09-08 12:00 | PDOC ---
[facility] 09/08/20 1200: CARDIO Progress Notes Date and Time Date of Service 09/08/20 Time of Evaluation 1200 Subjective Subjective: No Chest Pain, No Palpitations, Other (SOA improved ) Vitals Vitals Vital Signs Date Time Temp Pulse Resp B/P (MAP) Pulse Ox O2 Delivery O2 Flow Rate FiO2 09/08/20 11:21 98 Room Air 09/08/20 11:00 98.4 90 16 118/57 (77) 98.4 Weight Weight [ ] Input and Output Intake and Output Intake and Output 09/08/20 07:00 Intake Total 1220 ml Balance 1220 ml Intake Oral 1070 ml IV Total 150 ml # Voids 5 Laboratory Labs Laboratory Tests Test 09/07/20 12:10 09/07/20 17:29 09/08/20 07:26 09/08/20 07:45 Glucose (Fingerstick) 110 mg/dL (70-99) 108 mg/dL (70-99) 86 mg/dL (70-99) White Blood Count 30.3 x10^3/uL (4.0-11.0) Red Blood Count 3.64 x10^6/uL (4.30-5.70) Hemoglobin 10.2 g/dL (13.0-17.5) Hematocrit 33.2 % (39.0-53.0) Mean Corpuscular Volume 91 fL (79-100) Mean Corpuscular Hemoglobin 28 pg (25-35) Mean Corpuscular Hemoglobin Concent 31 g/dL (31-37) Red Cell Distribution Width 25.2 % (11.5-14.5) Platelet Count 412 x10^3/uL (140-400) Neutrophils (%) (Auto) 84 % (31-73) Lymphocytes (%) (Auto) 7 % (24-48) Monocytes (%) (Auto) 3 % (0-9) Eosinophils (%) (Auto) 1 % (0-3) Basophils (%) (Auto) 6 % (0-3) Neutrophils # (Auto) 25.4 x10^3/uL (1.8-7.7) Lymphocytes # (Auto) 2.1 x10^3/uL (1.0-4.8) Monocytes # (Auto) 0.8 x10^3/uL (0.0-1.1) Eosinophils # (Auto) 0.4 x10^3/uL (0.0-0.7) Basophils # (Auto) 1.7 x10^3/uL (0.0-0.2) Segmented Neutrophils % 80 % (35-66) Band Neutrophils % 1 % (0-9) Lymphocytes % 5 % (24-48) Monocytes % 5 % (0-10) Eosinophils % 5 % (0-5) Basophils % 4 % (0-3) Nucleated Red Blood Cells 3 Dohle Bodies Few Platelet Estimate Adequate (ADEQUATE) Large Platelets Occ Polychromasia Slight Basophilic Stippling Present Anisocytosis Mod Prothrombin Time 27.5 SEC (11.7-14.0) Prothromb Time International Ratio 2.6 (0.8-1.1) Sodium Level 147 mmol/L (136-145) Potassium Level 3.5 mmol/L (3.5-5.1) Chloride Level 110 mmol/L (98-107) Carbon Dioxide Level 25 mmol/L (21-32) Anion Gap 12 (6-14) Blood Urea Nitrogen 54 mg/dL (8-26) Creatinine 2.0 mg/dL (0.7-1.3) Estimated GFR (Cockcroft-Gault) 38.3 Glucose Level 91 mg/dL (70-99) Calcium Level 8.5 mg/dL (8.5-10.1) Microbiology Micro Microbiology 09/03/20 Blood Culture - Preliminary, Resulted NO GROWTH AFTER 4 DAYS Physical Exam HEENT: Neck Supple W Full Motion Chest: Symmetric LUNGS: Clear to Auscultation Heart: irregularly irregular (AFIB- rate controlled ) Abdomen: Soft N/T Extremities: Other (1-2+ bilateral LE edema ) Neurology: alert, oriented, follow commands Assessment Assessment 1. Acute respiratory failure with a/c CHF and untreated USAMA 2. 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 Echo 07/28 with LVEF 45% 3. CAD; catheterization 08/2018 with INSPECTOR FUEL HOSE of LAD with collaterals, which is unchanged from previous cath in 2013. clinically stable, CP free. 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 4. Permanent AFIB; rate controlled with BB. on warfarin for stroke prevention. INR 2.6 5. 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) - recent device check showed normal function. no dizziness, syncope 6. Hypertension; controlled 7. Hyperlipidemia; statin 8. Diabetes, II; as per IM 9. DION on CKD; Cr down to 2.0 10. Worsening leukocytosis, low-grade fevers. BC negative. ID consulted Recommendations Diuresis with close monitoring of renal function Secondary prevention measures BB for rate control Warfarin for stroke prophylaxis Supportive care Justicifation of Admission Dx: Justifications for Admission: Justification of Admission Dx: Yes SHAWN PARKER MD 09/08/201943: CARDIO Progress Notes Assessment Assessment Patient seen and examined. Agree with SLITTER CREASER SLOTTER HELPER's assessment and plan. Ac on chr combined systolic and diast HF better compensated CAD clinically stable Permanent atrial fibrillation rate controlled Continue warfarin for stroke prophylaxis SSS s/p PPM stable BART PAZ APRN Sep 08, 2020 12:00 SHAWN PARKER MD Sep 08, 2020 19:44
--- NOTE | 2020-09-08 12:29 | NUR ---
SS following up with discharge planning. SS reviewed pt chart and discussed with pt RN. Pt is currently on room air. Pt on IV Zosyn and IV Bumex. PT/OT recommended fdc unit. Pt accepted at [facility], ; fax [phone]. COVID19 test pending for placement. SS will continue to follow for discharge planning.
[2020-09-08 15:00] VITALS: BP 116/52
--- NOTE | 2020-09-08 15:47 | PDOC2 ---
CONSULT Date of Consult Date of Consult DATE: 09/08/20 TIME: 15:37 Reason for Consult Reason for Consult: Leukocytosis Referring Physician Referring Physician: Dr. Tucker Identification/Chief Complaint Chief Complaint Shortness of breath Source Source: Chart review, Patient History of Present Illness Reason for Visit: Patient is an 89-year-old male who has been admitted to the hospital with shortness of breath and generalized weakness. He has a medical history pertinent for acute on chronic systolic heart failure. He also has associated acute kidney injury that nephrology suspects is secondary to cardiorenal syndrome. Patient has been found to have acute on chronic congestive heart failure and has been managed for that valve hospitalized. He has also had low- grade fevers with T-max of 99.8. CBC at the time of his admission to the hospital showed leukocytosis with WBC count of 29.7 in addition to normocytic anemia and thrombocytosis. Review of his prior hemogram shows moderate leukocytosis and thrombocytosis from labs obtained earlier in the year along with progressing normocytic anemia. Labs from prior year showed normal CBC and leukocytosis, no thrombocytosis or anemia. Dr. Tucker has requested a hematology consultation due to leukocytosis of unexplained etiology Past Medical History Cardiovascular: AFIB, CAD, CHF, HTN, Hyperlipidemia Pulmonary: COPD, Other CENTRAL NERVOUS SYSTEM: Other GI: No pertinent hx Heme/Onc: No pertinent hx Hepatobiliary: No pertinent hx Psych: No pertinent hx Musculoskeletal: Osteoarthritis Rheumatologic: No pertinent hx Infectious disease: No pertinent hx Renal/: No pertinent hx Endocrine: Diabetes Past Surgical History Past Surgical History: Pacemaker, Cholecystectomy, Other Family History Family History: Heart Disease Social History Quit ALCOHOL: none Drugs: None Lives: with Family Current Problem List Problem List Problems Medical Problems: (1) CHF (congestive heart failure) Status: Acute Current Medications Current Medications Current Medications Furosemide (Lasix) 40 mg 1X ONCE IVP Last administered on 09/03/20at 21:07; Start 09/03/20 at 21:00; Stop 09/03/20 at 21:01; Status DC Piperacillin Sod/ Tazobactam Sod 3.375 gm/Sodium Chloride 50 ml @ 100 mls/hr 1X ONCE IV Last administered on 09/03/20at 21:08; Start 09/03/20 at 21:00; Stop 09/03/20 at 21:29; Status DC Ondansetron HCl (Zofran) 4 mg PRN Q8HRS PRN IV NAUSEA/VOMITING; Start 09/03/20 at 21:00; Stop 09/04/20 at 20:59; Status DC Morphine Sulfate (Morphine Sulfate) 2 mg PRN Q2HR PRN IV PAIN; Start 09/03/20 at 21:00; Stop 09/04/20 at 20:59; Status DC Acetaminophen (Tylenol) 650 mg PRN Q4HRS PRN PO FEVER > 100.3'F; Start 09/03/20 at 21:00; Stop 09/04/20 at 20:59; Status DC Ascorbic Acid (Vitamin C) 250 mg DAILY PO Last administered on 09/08/20at 08:29; Start 09/04/20 at 09:00 Aspirin (Aspirin Chewable) 81 mg BID PO Last administered on 09/08/20at 08:29; Start 09/04/20 at 09:00 Atorvastatin Calcium (Lipitor) 40 mg DAILY PO Last administered on 09/08/20at 08:29; Start 09/04/20 at 09:00 Bumetanide (Bumex) 1 mg BID92 PO ; Start 09/04/20 at 09:00; Stop 09/04/20 at 07:53; Status DC Digoxin (Lanoxin) 125 mcg DAILY PO ; Start 09/04/20 at 09:00; Stop 09/04/20 at 07:47; Status DC Docusate Sodium (Colace) 100 mg TID PO Last administered on 09/08/20at 13:17; Start 09/04/20 at 09:00 Acetaminophen/ Hydrocodone Bitart (Lortab 5/325) 1 tab PRN Q6HRS PRN PO PAIN Last administered on 09/07/20at 20:32; Start 09/03/20 at 22:15 Metoprolol Tartrate (Lopressor) 100 mg DAILY PO ; Start 09/04/20 at 09:00; Stop 09/04/20 at 07:29; Status DC Warfarin Sodium (Coumadin Per Pharmacy) 1 each PRN DAILY PRN MC SEE COMMENTS Last administered on 09/08/20at 10:07; Start 09/03/20 at 22:15 Piperacillin Sod/ Tazobactam Sod (Zosyn Per Pharmacy) 1 each PRN DAILY PRN MC SEE COMMENTS; Start 09/03/20 at 22:15 Albuterol/ Ipratropium (Duoneb) 3 ml RTQID NEB Last administered on 09/08/20 15:28; Start 09/04/20 at 08:00 Prednisone (Prednisone) 40 mg 1X ONCE PO Last administered on 09/03/20at 22:41; Start 09/03/20 at 22:15; Stop 09/03/20 at 22:21; Status DC Insulin Human Lispro (HumaLOG) 0-7 UNITS TIDWMEALS SQ Last administered on 09/04/20at 12:32; Start 09/04/20 at 08:00 Dextrose (Dextrose 50%-Water Syringe) 12.5 gm PRN Q15MIN PRN IV SEE COMMENTS; Start 09/03/20 at 22:15 Piperacillin Sod/ Tazobactam Sod 3.375 gm/Sodium Chloride 50 ml @ 100 mls/hr Q6HRS IV Last administered on 09/08/20at 13:12; Start 09/04/20 at 06:00 Warfarin Sodium (Coumadin - No Dose Today) 1 each 1X WARF ONCE MC Last administered on 09/04/20at 16:00; Start 09/04/20 at 16:00; Stop 09/04/20 at 16:01; Status DC Bumetanide (Bumex) 2.5 mg BID92 IV Last administered on 09/04/20 15:23; Start 09/04/20 at 09:00; Stop 09/05/20 at 07:46; Status DC Lactobacillus Rhamnosus (Culturelle) 1 cap BID PO Last administered on 09/08/20 08:28; Start 09/04/20 at 21:00 Tamsulosin HCl (Flomax) 0.4 mg QHS PO Last administered on 09/07/20 20:30; Start 09/05/20 at 21:00 Bumetanide (Bumex) 1 mg BID92 IV Last administered on 09/08/20 13:18; Start 09/05/20 at 09:00 Potassium Bicarbonate (Potassium Effervescent Tablet) 40 meq 1X ONCE PO Last administered on 09/05/20at 09:06; Start 09/05/20 at 08:00; Stop 09/05/20 at 08:01; Status DC Warfarin Sodium (Coumadin - No Dose Today) 1 each 1X WARF ONCE MC Last administered on 09/05/20at 15:58; Start 09/05/20 at 16:00; Stop 09/05/20 at 16:01; Status DC Warfarin Sodium (Coumadin - No Dose Today) 1 each 1X WARF ONCE MC Last administered on 09/06/20at 16:00; Start 09/06/20 at 16:00; Stop 09/06/20 at 16:01; Status DC Warfarin Sodium (Coumadin - No Dose Today) 1 each 1X WARF ONCE MC ; Start 09/07/20 at 16:00; Stop 09/07/20 at 16:01; Status DC Bisacodyl (Dulcolax Supp) 10 mg 1X ONCE OR ; Start 09/07/20 at 13:00; Stop 09/07/20 at 18:32; Status DC Bisacodyl (Dulcolax Supp) 10 mg PRN DAILY PRN OR CONSTIPATION Last administered on 09/08/20at 08:29; Start 09/07/20 at 18:45 Warfarin Sodium (Coumadin - No Dose Today) 1 each 1X WARF ONCE MC ; Start 09/08/20 at 16:00; Stop 09/08/20 at 16:01; Status Cancel Warfarin Sodium (Coumadin) 4 mg 1X WARF ONCE PO ; Start 09/08/20 at 16:00; Stop 09/08/20 at 16:01 Active Scripts Active [place] 5-325 Tablet (Acetaminophen/Hydrocodone Bitart) 1 Each Tablet 7.5 Mg PO PRN Q6HRS PRN 6 Days LAST DOSE GIVEN: Reported Warfarin Sodium 2 Mg Tablet 4 Mg PO Warfarin Sodium 2 Mg Tablet 6 Mg PO QMTH Bumetanide 1 Mg Tablet 1 Mg PO BID Colace (Docusate Sodium) 100 Mg Capsule 1 Cap PO TID Metamucil Powder (Psyllium Seed (with Sugar)) 575 Gm Powder 575 Gm PO DAILY Atorvastatin Calcium 40 Mg Tablet 1 Tab PO DAILY Metoprolol Tartrate 100 Mg Tablet 100 Mg PO DAILY Tamsulosin Hcl 0.4 Mg Cap.er.24h 0.4 Mg PO HS DAILY Vitamin C (Ascorbic Acid) 500 Mg Tablet 250 Mg PO DAILY Aspirin 81 Mg Tab.chew 81 Mg PO BID Lanoxin (Digoxin) 125 Mcg Tablet 125 Mcg PO DAILY Allergies Allergies: Coded Allergies: I S O L A T I O N *CONTACT* (Verified Allergy, Unknown, 10/15/18) VRE No Known Medication Allergies (Verified Allergy, Unknown, 10/15/18) ROS Review of System Negative unless stated otherwise Physical Exam Physical Exam General: Awake, alert, no distress Head: Atraumatic, no conjunctival icterus, normal oral cavity mucosa Neck: Supple, no lymphadenopathy Chest: No trauma noted Cardiovascular: Regular rhythm, normal rate, no murmurs Respiratory: Bilateral air entry noted, lungs clear to auscultation bilaterally. No accessory muscle use Abdominal: Abdomen is soft, nontender, nondistended. Bowel sounds were normal. No hepatomegaly or splenomegaly Musculoskeletal: No deformity noted Extremities: Lower extremity edema present Skin: No rash or lesions Neurologic: Alert and oriented x3, no grossly evident neurologic deficits noted. Full neurological exam was not performed Psychiatric: Appropriate mood and affect Vitals VITALS Vital Signs Date Time Temp Pulse Resp B/P (MAP) Pulse Ox O2 Delivery O2 Flow Rate FiO2 09/08/20 15:29 99 Room Air 09/08/20 11:00 98.4 90 16 118/57 (77) 98.4 Labs Labs Laboratory Tests Test 09/06/20 16:26 09/06/20 20:51 09/07/20 07:10 09/07/20 07:25 Glucose (Fingerstick) 90 mg/dL (70-99) 94 mg/dL (70-99) 88 mg/dL (70-99) White Blood Count 29.0 x10^3/uL (4.0-11.0) Red Blood Count 3.62 x10^6/uL (4.30-5.70) Hemoglobin 10.2 g/dL (13.0-17.5) Hematocrit 32.8 % (39.0-53.0) Mean Corpuscular Volume 90 fL (79-100) Mean Corpuscular Hemoglobin 28 pg (25-35) Mean Corpuscular Hemoglobin Concent 31 g/dL (31-37) Red Cell Distribution Width 25.7 % (11.5-14.5) Platelet Count 431 x10^3/uL (140-400) Prothrombin Time 33.6 SEC (11.7-14.0) Prothromb Time International Ratio 3.3 (0.8-1.1) Sodium Level 147 mmol/L (136-145) Potassium Level 3.7 mmol/L (3.5-5.1) Chloride Level 111 mmol/L (98-107) Carbon Dioxide Level 24 mmol/L (21-32) Anion Gap 12 (6-14) Blood Urea Nitrogen 56 mg/dL (8-26) Creatinine 2.2 mg/dL (0.7-1.3) Estimated GFR (Cockcroft-Gault) 34.4 Glucose Level 89 mg/dL (70-99) Calcium Level 8.6 mg/dL (8.5-10.1) Test 09/07/20 12:10 09/07/20 17:29 09/08/20 07:26 09/08/20 07:45 Glucose (Fingerstick) 110 mg/dL (70-99) 108 mg/dL (70-99) 86 mg/dL (70-99) White Blood Count 30.3 x10^3/uL (4.0-11.0) Red Blood Count 3.64 x10^6/uL (4.30-5.70) Hemoglobin 10.2 g/dL (13.0-17.5) Hematocrit 33.2 % (39.0-53.0) Mean Corpuscular Volume 91 fL (79-100) Mean Corpuscular Hemoglobin 28 pg (25-35) Mean Corpuscular Hemoglobin Concent 31 g/dL (31-37) Red Cell Distribution Width 25.2 % (11.5-14.5) Platelet Count 412 x10^3/uL (140-400) Neutrophils (%) (Auto) 84 % (31-73) Lymphocytes (%) (Auto) 7 % (24-48) Monocytes (%) (Auto) 3 % (0-9) Eosinophils (%) (Auto) 1 % (0-3) Basophils (%) (Auto) 6 % (0-3) Neutrophils # (Auto) 25.4 x10^3/uL (1.8-7.7) Lymphocytes # (Auto) 2.1 x10^3/uL (1.0-4.8) Monocytes # (Auto) 0.8 x10^3/uL (0.0-1.1) Eosinophils # (Auto) 0.4 x10^3/uL (0.0-0.7) Basophils # (Auto) 1.7 x10^3/uL (0.0-0.2) Segmented Neutrophils % 80 % (35-66) Band Neutrophils % 1 % (0-9) Lymphocytes % 5 % (24-48) Monocytes % 5 % (0-10) Eosinophils % 5 % (0-5) Basophils % 4 % (0-3) Nucleated Red Blood Cells 3 Dohle Bodies Few Platelet Estimate Adequate (ADEQUATE) Large Platelets Occ Polychromasia Slight Basophilic Stippling Present Anisocytosis Mod Prothrombin Time 27.5 SEC (11.7-14.0) Prothromb Time International Ratio 2.6 (0.8-1.1) Sodium Level 147 mmol/L (136-145) Potassium Level 3.5 mmol/L (3.5-5.1) Chloride Level 110 mmol/L (98-107) Carbon Dioxide Level 25 mmol/L (21-32) Anion Gap 12 (6-14) Blood Urea Nitrogen 54 mg/dL (8-26) Creatinine 2.0 mg/dL (0.7-1.3) Estimated GFR (Cockcroft-Gault) 38.3 Glucose Level 91 mg/dL (70-99) Calcium Level 8.5 mg/dL (8.5-10.1) Test 09/08/20 09:40 09/08/20 12:03 SARS-CoV-2 RNA (ZIA) Negative (Negative) Glucose (Fingerstick) 86 mg/dL (70-99) Laboratory Tests Test 09/07/20 17:29 09/08/20 07:26 09/08/20 07:45 09/08/20 09:40 Glucose (Fingerstick) 108 mg/dL (70-99) 86 mg/dL (70-99) White Blood Count 30.3 x10^3/uL (4.0-11.0) Red Blood Count 3.64 x10^6/uL (4.30-5.70) Hemoglobin 10.2 g/dL (13.0-17.5) Hematocrit 33.2 % (39.0-53.0) Mean Corpuscular Volume 91 fL (79-100) Mean Corpuscular Hemoglobin 28 pg (25-35) Mean Corpuscular Hemoglobin Concent 31 g/dL (31-37) Red Cell Distribution Width 25.2 % (11.5-14.5) Platelet Count 412 x10^3/uL (140-400) Neutrophils (%) (Auto) 84 % (31-73) Lymphocytes (%) (Auto) 7 % (24-48) Monocytes (%) (Auto) 3 % (0-9) Eosinophils (%) (Auto) 1 % (0-3) Basophils (%) (Auto) 6 % (0-3) Neutrophils # (Auto) 25.4 x10^3/uL (1.8-7.7) Lymphocytes # (Auto) 2.1 x10^3/uL (1.0-4.8) Monocytes # (Auto) 0.8 x10^3/uL (0.0-1.1) Eosinophils # (Auto) 0.4 x10^3/uL (0.0-0.7) Basophils # (Auto) 1.7 x10^3/uL (0.0-0.2) Segmented Neutrophils % 80 % (35-66) Band Neutrophils % 1 % (0-9) Lymphocytes % 5 % (24-48) Monocytes % 5 % (0-10) Eosinophils % 5 % (0-5) Basophils % 4 % (0-3) Nucleated Red Blood Cells 3 Dohle Bodies Few Platelet Estimate Adequate (ADEQUATE) Large Platelets Occ Polychromasia Slight Basophilic Stippling Present Anisocytosis Mod Prothrombin Time 27.5 SEC (11.7-14.0) Prothromb Time International Ratio 2.6 (0.8-1.1) Sodium Level 147 mmol/L (136-145) Potassium Level 3.5 mmol/L (3.5-5.1) Chloride Level 110 mmol/L (98-107) Carbon Dioxide Level 25 mmol/L (21-32) Anion Gap 12 (6-14) Blood Urea Nitrogen 54 mg/dL (8-26) Creatinine 2.0 mg/dL (0.7-1.3) Estimated GFR (Cockcroft-Gault) 38.3 Glucose Level 91 mg/dL (70-99) Calcium Level 8.5 mg/dL (8.5-10.1) SARS-CoV-2 RNA (ZIA) Negative (Negative) Test 09/08/20 12:03 Glucose (Fingerstick) 86 mg/dL (70-99) Assessment/Plan Assessment/Plan Assessment: Leukocytosis, neutrophilic Thrombocytosis Normocytic anemia Acute on chronic systolic and diastolic heart failure, improving Cardiomyopathy Obstructive sleep apnea Paroxysmal atrial fibrillation DION/CKD, likely secondary to cardiorenal syndrome Recommendations: -Recommend iron studies, B12, folate, SPEP, free light chains, copper -We will check BCR ABL FISH and JAK2 V617 F mutation to evaluate leukocytosis and new onset anemia and thrombocytosis -Can consider bone marrow biopsy as outpatient based on trend counts while inpatient -Defer to cardiology service regarding management of heart failure -Defer to pulmonology regarding management of acute hypoxic respiratory failure and antibiotics -Rest per primary service -We will plan on seeing patient in follow-up as outpatient to reassess CBC and discussed results of BCR ABL FISH and JAK2 mutation testing -Rest per Dr. Garrett Morales MD Medical Oncology/Hematology Ph: [phone] EDI MORALES MD Sep 08, 2020 15:47
[2020-09-08] MEDS ORDERED: WARFARIN 4 MG TABLET. PO ONE (16:00)
[2020-09-08 19:22] LABS: BILIRUBIN,URINE NEGATIVE (NEG); CLARITY,URINE CLOUDY; COLOR,URINE YELLOW; NITRITE,URINE NEGATIVE (NEG); PH,URINE 5.5 (<5.0-8.0); PROTEIN,URINE NEGATIVE (NEG-TRACE)
[2020-09-08 19:27] LABS: BACTERIA,URINE 0 /HPF (0-FEW); RBC,URINE RARE /HPF (0-2); WBC,URINE RARE /HPF (0-4); YEAST,URINE PRESENT /HPF
[2020-09-08 19:30] VITALS: BP 122/55
[2020-09-08] MEDS: TAMSULOSIN 0.4 MG CAP.ER.24H. PO SCH (21:00)
[2020-09-08 22:00] VITALS: BP 122/60
[2020-09-09] MEDS: PIPERACILLIN/TAZOBACTAM 3.375 GM in IV NORMAL SALINE 50ML 50 ML IV SCH ×5 (00:15→23:46)
[2020-09-09 02:27] VITALS: BP 123/54
[2020-09-09] MEDS: HYDROcodone/APAP 5/325MG 1 TAB TABLET PO PRN (03:13)
[2020-09-09 05:54] LABS: CALCIUM 8.4 mg/dL (8.5-10.1); CREATININE 1.8 mg/dL (0.7-1.3); GFR 43.3; POTASSIUM 3.3 mmol/L (3.5-5.1)
[2020-09-09 05:57] LABS: BASO # 1.7 x10^3/uL (0.0-0.2); BASO % 6 % (0-3); EOS # 0.3 x10^3/uL (0.0-0.7); EOS % 1 % (0-3); HEMATOCRIT 31.1 % (39.0-53.0); HEMOGLOBIN 9.7 g/dL (13.0-17.5); LYMPH # 1.7 x10^3/uL (1.0-4.8); LYMPH % 6 % (24-48); MEAN CORPUSCULAR HEMOGLOBIN 28 pg (25-35); MEAN CORPUSCULAR HGB CONC 31 g/dL (31-37); MEAN CORPUSCULAR VOLUME 91 fL (79-100); MONO # 0.9 x10^3/uL (0.0-1.1); MONO % 3 % (0-9); NEUT # 24.4 x10^3/uL (1.8-7.7); NEUT % 84 % (31-73); PLATELET COUNT 445 x10^3/uL (140-400); RED BLOOD COUNT 3.44 x10^6/uL (4.30-5.70); RED CELL DISTRIBUTION WIDTH 25.4 % (11.5-14.5); WHITE BLOOD COUNT 29.1 x10^3/uL (4.0-11.0)
[2020-09-09 05:58] LABS: PROTHROMBIN TIME PATIENT 26.1 SEC (11.7-14.0)
[2020-09-09 06:16] LABS: LACTATE DEHYDROGENASE 1473 U/L (85-227)
[2020-09-09 07:00] VITALS: BP 121/49
[2020-09-09] MEDS: IPRATRPIUM/ALBUTEROL 0.5/2.5MG 3 ML NEBU. NEB SCH ×4 (07:20→20:01)
[2020-09-09] MEDS: INSULIN LISPRO 300 UNITS/3 ML VIAL. SQ SCH ×3 (08:00→17:00)
--- NOTE | 2020-09-09 08:52 | NUR ---
Pharmacy Warfarin Dosing Note S:Pharmacy consulted to assist with anticoagulation therapy started with target INR: 2 -3 O:MAMTA MACIAS is a 89 year old M with Atrial Fibrillation LABS: Last INR: 2.4 Last HGB: 9.7 Last HCT: 31.1 Last PLT: 445 Last dose of 4 mg given on 09/08/20 at 1729 Previous Regimen: 6 mg Mon,Th; 4 mg all other days Drug Interaction Changes: New Interacting Drug Ongoing Drug Interactions: ZOSYN A:INR of 2.4 is within desired range. Target range for this patient is: 2 -3 P: Warfarin dose: 4 mg Today at 1600 Bridge Therapy: None Next INR due 09/10/20 Pharmacy anticoagulation service will continue to follow. REGINA WANG RPH, 09/09/20 0802
[2020-09-09] MEDS: LACTOBACILLUS RHAMNOSUS GG 1 CAPSULE. PO SCH ×2 (09:32→21:24)
[2020-09-09] MEDS: ATORVASTATIN CALCIUM 40 MG TABLET. PO SCH (09:33)
[2020-09-09] MEDS: DOCUSATE SODIUM 100 MG CAPSULE. PO SCH ×3 (09:33→21:24)
[2020-09-09] MEDS: BUMETANIDE 1 MG/4 ML VIAL. IV SCH ×2 (09:33→16:53)
[2020-09-09] MEDS: ASCORBIC ACID 500 MG TABLET PO SCH (09:33)
[2020-09-09] MEDS: ASPIRIN CHEWABLE 81 MG TABLET. PO SCH ×2 (09:33→21:24)
--- NOTE | 2020-09-09 09:38 | PDOC ---
DATE OF SERVICE DATE: 09/09/20 TIME: 09:35 SUBJECTIVE ROS Stable, On RA No complaints by patient, denies SOB OBJECTIVE Vital Signs Vital Signs Date Time Temp Pulse Resp B/P (MAP) Pulse Ox O2 Delivery O2 Flow Rate FiO2 09/09/20 07:22 97 Room Air 09/09/20 07:00 98.4 62 16 121/49 (73) 98.4 I & 0 Intake and Output 09/09/20 07:00 Intake Total 2105 ml Balance 2105 ml Intake Oral 1780 ml IV Total 325 ml # Voids 7 # Bowel Movements 1 PHYSICAL EXAM Physical Exam Gen NAD , HEEN OM moist, hard of hearing Neck Supple Lungs decreased bases, Non labored CV S1`s2 Abd Soft, NT Neuro grossly Normal Skin No rash No CVA OR SP tenderness, No gaytan DIAGNOSIS/ASSESSMENT Assessment & Plan DION - suspect Cardiorenal , Cr elevated in July - admitted for CHF, prior labs in [facility] records with normal baseline Cr . Improving renal function monitor, supportive care, Strict I/O ( not recorded) ,Daily standing wt Avoid nephrotoxins and overdiuresis .. Diuretics per cardiology . Follow up Labs with PCP in 7-10 days post dc , Follow up with us in 6-8 weeks . DC per Primary Acute on chronic systolic heart failure- appears compensated Echocardiogram 2020 ejection fraction of 40%. On Bumex at home HyperNatremia - Mild, On diuretics- card managing Exacerbation of COPD. Atrial fibrillation. History of coronary artery disease. Diabetes mellitus Hypertension; controlled COMMENT/RELEVANT DATA Meds Current Medications Medications (Trade) Dose Ordered Sig/Rakesh Start Time Stop Time Status Last Admin Dose Admin Acetaminophen (Tylenol) 650 mg PRN Q4HRS PRN 09/03/20 21:00 09/04/20 20:59 DC Acetaminophen/ Hydrocodone Bitart (Lortab 5/325) 1 tab PRN Q6HRS PRN 09/03/20 22:15 09/09/20 03:13 1 TAB Albuterol/ Ipratropium (Duoneb) 3 ml RTQID 09/04/20 08:00 09/09/20 07:20 3 ML Ascorbic Acid (Vitamin C) 250 mg DAILY 09/04/20 09:00 09/09/20 09:33 250 MG Aspirin (Aspirin Chewable) 81 mg BID 09/04/20 09:00 09/09/20 09:33 81 MG Atorvastatin Calcium (Lipitor) 40 mg DAILY 09/04/20 09:00 09/09/20 09:33 40 MG Bisacodyl (Dulcolax Supp) 10 mg PRN DAILY PRN 09/07/20 18:45 09/08/20 08:29 10 MG Bumetanide (Bumex) 1 mg BID92 09/05/20 09:00 09/09/20 09:33 1 MG Dextrose (Dextrose 50%-Water Syringe) 12.5 gm PRN Q15MIN PRN 09/03/20 22:15 Digoxin (Lanoxin) 125 mcg DAILY 09/04/20 09:00 09/04/20 07:47 DC Docusate Sodium (Colace) 100 mg TID 09/04/20 09:00 09/09/20 09:33 100 MG Furosemide (Lasix) 40 mg 1X ONCE 09/03/20 21:00 09/03/20 21:01 DC 09/03/20 21:07 40 MG Insulin Human Lispro (HumaLOG) 0-7 UNITS TIDWMEALS 09/04/20 08:00 09/04/20 12:32 4 UNITS Lactobacillus Rhamnosus (Culturelle) 1 cap BID 09/04/20 21:00 09/09/20 09:32 1 CAP Metoprolol Tartrate (Lopressor) 100 mg DAILY 09/04/20 09:00 09/04/20 07:29 DC Morphine Sulfate (Morphine Sulfate) 2 mg PRN Q2HR PRN 09/03/20 21:00 09/04/20 20:59 DC Ondansetron HCl (Zofran) 4 mg PRN Q8HRS PRN 09/03/20 21:00 09/04/20 20:59 DC Piperacillin Sod/ Tazobactam Sod (Zosyn Per Pharmacy) 1 each PRN DAILY PRN 09/03/20 22:15 Piperacillin Sod/ Tazobactam Sod 3.375 gm/Sodium Chloride 50 ml @ 100 mls/hr Q6HRS 09/04/20 06:00 09/09/20 05:45 100 MLS/HR Potassium Bicarbonate (Potassium Effervescent Tablet) 40 meq 1X ONCE 09/05/20 08:00 09/05/20 08:01 DC 09/05/20 09:06 40 MEQ Potassium Chloride (Klor-Con) 20 meq 1X ONCE 09/09/20 10:00 09/09/20 10:01 09/09/20 09:32 20 MEQ Prednisone (Prednisone) 40 mg 1X ONCE 09/03/20 22:15 09/03/20 22:21 DC 09/03/20 22:41 40 MG Tamsulosin HCl (Flomax) 0.4 mg QHS 09/05/20 21:00 09/08/20 21:00 0.4 MG Warfarin Sodium (Coumadin - No Dose Today) 1 each 1X WARF ONCE 09/08/20 16:00 09/08/20 16:01 Cancel Warfarin Sodium (Coumadin Per Pharmacy) 1 each PRN DAILY PRN 09/03/20 22:15 09/09/20 08:51 1 EACH Warfarin Sodium (Coumadin) 4 mg 1X WARF ONCE 09/09/20 16:00 09/09/20 16:01 Lab Laboratory Tests Test 09/08/20 09:40 09/08/20 12:03 09/08/20 17:26 09/08/20 18:15 SARS-CoV-2 RNA (ZIA) Negative (Negative) Glucose (Fingerstick) 86 mg/dL (70-99) 120 mg/dL (70-99) Urine Collection Type U cath Urine Color Yellow Urine Clarity Cloudy Urine pH 5.5 (<5.0-8.0) Urine Specific [place] 1.020 (1.000-1.030) Urine Protein Negative mg/dL (NEG-TRACE) Urine Glucose (UA) Negative mg/dL (NEG) Urine Ketones (Stick) Negative mg/dL (NEG) Urine Blood Negative (NEG) Urine Nitrite Negative (NEG) Urine Bilirubin Negative (NEG) Urine Urobilinogen Dipstick 1.0 mg/dL (0.2 mg/dL) Urine Leukocyte Esterase Negative (NEG) Urine RBC Rare /HPF (0-2) Urine WBC Rare /HPF (0-4) Urine Squamous Epithelial Cells Occ /LPF Urine Bacteria 0 /HPF (0-FEW) Urine Mucus Mod /LPF Urine Yeast Present /HPF Test 09/08/20 21:04 09/09/20 05:15 09/09/20 08:19 Glucose (Fingerstick) 125 mg/dL (70-99) 83 mg/dL (70-99) White Blood Count 29.1 x10^3/uL (4.0-11.0) Red Blood Count 3.47 x10^6/uL (4.30-5.70) Hemoglobin 9.7 g/dL (13.0-17.5) Hematocrit 31.1 % (39.0-53.0) Mean Corpuscular Volume 91 fL (79-100) Mean Corpuscular Hemoglobin 28 pg (25-35) Mean Corpuscular Hemoglobin Concent 31 g/dL (31-37) Red Cell Distribution Width 25.4 % (11.5-14.5) Platelet Count 445 x10^3/uL (140-400) Neutrophils (%) (Auto) 84 % (31-73) Lymphocytes (%) (Auto) 6 % (24-48) Monocytes (%) (Auto) 3 % (0-9) Eosinophils (%) (Auto) 1 % (0-3) Basophils (%) (Auto) 6 % (0-3) Neutrophils # (Auto) 24.4 x10^3/uL (1.8-7.7) Lymphocytes # (Auto) 1.7 x10^3/uL (1.0-4.8) Monocytes # (Auto) 0.9 x10^3/uL (0.0-1.1) Eosinophils # (Auto) 0.3 x10^3/uL (0.0-0.7) Basophils # (Auto) 1.7 x10^3/uL (0.0-0.2) Absolute Reticulocyte Count 0.104 x10^6/uL (0.020-0.120) Percent Reticulocyte Count 3.0 % (0.5-2.3) Immature Reticulocyte Fraction 0.67 (0.20-0.60) Prothrombin Time 26.1 SEC (11.7-14.0) Prothromb Time International Ratio 2.4 (0.8-1.1) Sodium Level 146 mmol/L (136-145) Potassium Level 3.3 mmol/L (3.5-5.1) Chloride Level 110 mmol/L (98-107) Carbon Dioxide Level 25 mmol/L (21-32) Anion Gap 11 (6-14) Blood Urea Nitrogen 52 mg/dL (8-26) Creatinine 1.8 mg/dL (0.7-1.3) Estimated GFR (Cockcroft-Gault) 43.3 Glucose Level 91 mg/dL (70-99) Calcium Level 8.4 mg/dL (8.5-10.1) Iron Level 40 ug/dL (65-175) Total Iron Binding Capacity 99 ug/dL (250-450) Iron Saturation 40 % (15-34) Ferritin 367 ng/mL (26-388) Lactate Dehydrogenase 1473 U/L (85-227) Results All relevant outside records, renal labs, imaging studies, telemetry/EKG's were reviewed. Justicifation of Admission Dx: Justifications for Admission: Justification of Admission Dx: Yes DEXTER ULLOA MD Sep 09, 2020 09:38
[2020-09-09] MEDS ORDERED: POTASSIUM CHLORIDE 20 MEQ TABLET.ER. PO ONE (10:00)
--- NOTE | 2020-09-09 10:14 | RAD ---
Portable chest x-ray compared to similar exam dated August 262020 for congestive heart failure. FINDINGS: Diffuse interstitial changes are worse bilaterally, and there is worsening perihilar consol idation on the right. Findings may reflect progressive interstitial pulmonary edema versus infection. Heart size remains moderately enlarged but stable. Partial obscuration of the left hemidiaphragm sug gestive developing consolidation in this location. Cystic focus in the left costophrenic sulcus is es sentially unchanged. IMPRESSION: 1. Worsening interstitial changes throughout both lungs, with worsening perihilar consolidation. Find ings may reflect progressive interstitial pulmonary edema or infection. Electronically signed by: Gaurav Elliott MD (09/09/2020 10:11 AM) [id number]
--- NOTE | 2020-09-09 10:40 | PDOC ---
PROGRESS NOTES Date of Service: DATE: 09/09/20 TIME: 10:40 Chief Complaint Chief Complaint impression Acute on chronic combined systolic and diastolic heart failure. We will diurese with intravenous Bumex. 2D echo in September 2019 showed LVEF 40%. Coronary artery disease: Patient has known chronic total occlusion of LAD with collaterals, presently stable and chest pain-free. Lexiscan nuclear stress test in March 2020 showed large inferior infarct without any significant ischemia. Continue current secondary prevention measures. Sick sinus syndrome s/p permanent pacemaker implantation with more recent generator change. Recent device check showed normal function. He denied any syncope or near syncope. Permanent atrial fibrillation: Telemetry showed demand pacing. Patient on warfarin for stroke prophylaxis. Check PT/INR. Hypertension - Controlled. Will back off on his BB. He is actually on 100mg metoprolol tartrate Hyperlipidemia - Continue statin Diabetes mellitus type 2 - diet controlled, A1c previously 5.8 Severe Protein calorie malnutrition - severe given his edema and albumin. 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 Normal LV systolic function. EF 60% plan FEN - Cardiac ADA diet PPX - warfarin CODE - FULL Dispo - inpatient CVC for CHF exacerbation History of Present Illness History of Present Illness Mr Rivero is an 89yo M w/ PMHx DM2, HLD, HTN, afib, SSS s/p PPM, CAD, chronic systolic CHF who presented to ED c/o for weakness and dyspnea. Also complains of dyspnea worsening over weeks, with a few days of noted LE edema is worse with cough in the morning that is productive of white sputum. he has cough at times, He denied any chest pain, palpitations or syncope. Given 1 dose iv lasix in ED 40mg, < 500 uop after, still feeling short of breath. He follows with Dr. Santoyo and has been recently changed to Bumex last month. Chest radiograph with interstitial edema. Labs with WBC 27.3, Hb 10.3, platelets 454, NA 145, K4.7, BUN 58, CR 2.1, INR 3.2 TSH 5.5, digoxin level 2.2, albumin 2.7, bilirubin 2.2, AST 56 ALT 12 alkaline phosphatase 138 NT proBNP 31,348 Admitted for further treatment. 09/04: Afebrile. WBC still high. Reasonably good urine output. A little confused Febrile. 1.3 L urine output. Still with very swollen lower extremities. No chest pain little bit short of breath. Not on O2 today. 09-06 Still with very swollen lower extremities. No chest pain little bit short of breath. Acute on chronic combined systolic and diastolic heart failure. We will diurese with intravenous Bumex. 2D echo in September 2019 showed LVEF 40%. Coronary artery disease: Patient has known chronic total occlusion of LAD with collaterals, presently stable and chest pain-free. Lexiscan nuclear stress test in March 2020 showed large inferior infarct without any significant ischemia. Continue current secondary prevention measures. Sick sinus syndrome s/p permanent pacemaker implantation with more recent generator change. Recent device check showed normal function. He denied any syncope or near syncope. Permanent atrial fibrillation: Telemetry showed demand pacing. Patient on warfarin for stroke prophylaxis. Check PT/INR. Hypertension - Controlled. Will back off on his BB. He is actually on 100mg metoprolol tartrate Hyperlipidemia - Continue statin Diabetes mellitus type 2 - diet controlled, A1c previously 5.8 Severe Protein calorie malnutrition - severe given his edema and albumin. tician to see D/W RN 09/07 CR 2.2 LESS swollen lower extremities. No chest pain little bit short of breath. Acute on chronic combined systolic and diastolic heart failure. We will diurese with intravenous Bumex. 2D echo in September 2019 showed LVEF 40%. Coronary artery disease: Patient has known chronic total occlusion of LAD with collaterals, presently stable and chest pain-free. Lexiscan nuclear stress test in March 2020 showed large inferior infarct without any significant ischemia. Continue current secondary prevention measures. Sick sinus syndrome s/p permanent pacemaker implantation with more recent generator change. Recent device check showed normal function. He denied any syncope or near syncope. Permanent atrial fibrillation: Telemetry showed demand pacing. Patient on warfarin for stroke prophylaxis. Check PT/INR. Hypertension - Controlled. Will back off on his BB. He is actually on 100mg metoprolol tartrate Hyperlipidemia - Continue statin Diabetes mellitus type 2 - diet controlled, A1c previously 5.8 Severe Protein calorie malnutrition - severe given his edema and albumin. [employer] to see D/W RN 09/08 CR 2.0 wbc 30.3 CAD; catheterization 08/2018 with [employer]EIGN COLLECTION CLERK of LAD with collaterals, which is unchanged from previous cath in 2013. clinically stable, CP free. 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 Permanent AFIB; rate controlled with BB. on warfarin for stroke prevention. 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 No chest pain little bit short of breath. Acute on chronic combined systolic and diastolic heart failure. We will diurese with intravenous Bumex. 2D echo in September 2019 showed LVEF 40%. Coronary artery disease: Patient has known chronic total occlusion of LAD with collaterals, presently stable and chest pain-free. Lexiscan nuclear stress test in March 2020 showed large inferior infarct without any significant ischemia. Continue current secondary prevention measures. Sick sinus syndrome s/p permanent pacemaker implantation with more recent generator change. Recent device check showed normal function. He denied any syncope or near syncope. Permanent atrial fibrillation: Telemetry showed demand pacing. Patient on warfarin for stroke prophylaxis. Check PT/INR. Hypertension - Controlled. Will back off on his BB. He is actually on 100mg metoprolol tartrate Hyperlipidemia - Continue statin Diabetes mellitus type 2 - diet controlled, A1c previously 5.8 Severe Protein calorie malnutrition - severe given his edema and albumin. [employer] to see D/W RN 37 min pt exam, chart review, > 50% of time spent with exam, chart review, pt care coordination 09/09 CR 2.0 wbc 30.3 CAD; catheterization 08/2018 with FOREIGN COLLECTION CLERK of LAD with collaterals, which is unchanged from previous cath in 2013. clinically stable, CP free. 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 Permanent AFIB; rate controlled with BB. on warfarin for stroke prevention. 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 No chest pain little bit short of breath. Acute on chronic combined systolic and diastolic heart failure. We will diurese with intravenous Bumex. 2D echo in September 2019 showed LVEF 40%. Coronary artery disease: Patient has known chronic total occlusion of LAD with collaterals, presently stable and chest pain-free. Lexiscan nuclear stress test in March 2020 showed large inferior infarct without any significant ischemia. Continue current secondary prevention measures. Sick sinus syndrome s/p permanent pacemaker implantation with more recent generator change. Recent device check showed normal function. He denied any syncope or near syncope. Permanent atrial fibrillation: Telemetry showed demand pacing. Patient on warfarin for stroke prophylaxis. Check PT/INR. Hypertension - Controlled. Will back off on his BB. 100mg metoprolol tartrate Hyperlipidemia - Continue statin Diabetes mellitus type 2 - diet controlled, A1c previously 5.8 Severe Protein calorie malnutrition - severe given his edema and albumin. [employer] to see D/W RN Defer to pulmonology regarding management of acute hypoxic respiratory failure and antibiotics ONCOLOGY plan on seeing patient in follow-up as outpatient to reassess CBC and discussed results of BCR ABL FISH and JAK2 mutation testing ID CONSULT 36 min pt exam, chart review, > 50% of time spent with exam, chart review, pt care coordination Worsening interstitial changes throughout both lungs, with worsening perihilar consolidation. Findings may reflect progressive interstitial pulmonary edema or infection. CXR 09-15 Vitals Vitals Vital Signs Date Time Temp Pulse Resp B/P (MAP) Pulse Ox O2 Delivery O2 Flow Rate FiO2 09/09/20 07:22 97 Room Air 09/09/20 07:00 98.4 62 16 121/49 (73) 98.4 Physical Exam Physical Exam HEENT: Atraumatic, EOMI, Mucous membr. moist/pink, Other (upper dentures) Lungs: Other (very limited volume breaths, no wheeze, distant sounds) Abdomen: Normal bowel sounds, Soft Extremities: No clubbing, Other (2+ edema, no breakdown) Skin: No rashes, No breakdown, No significant lesion Neuro: Normal speech, Normal tone, Sensation intact General: mild distress Heart: Regular rate Lungs: Crackles (bases ) Abdomen: Normal bowel sounds Extremities: No clubbing, No cyanosis, Other (2+ edema, no breakdown) Skin: No rashes, No breakdown, No significant lesion Labs LABS PATIENT: MAMTA MACIAS ACCOUNT: [id number] : 1930 LOCATION: [address] [place] [address] AGE: 89 SEX: M EXAM STATUS: ADM IN ORD. PHYSICIAN: JAYLIN LAGUERRE MD REASON: CONGESTIVE HEART FAILURE PROCEDURE: CHEST AP ONLY Portable chest x-ray compared to similar exam dated August 262020 for congestive heart failure. FINDINGS: Diffuse interstitial changes are worse bilaterally, and there is worsening perihilar consolidation on the right. Findings may reflect progressive interstitial pulmonary edema versus infection. Heart size remains moderately enlarged but stable. Partial obscuration of the left hemidiaphragm suggestive developing consolidation in this location. Cystic focus in the left costophrenic sulcus is essentially unchanged. IMPRESSION: 1. Worsening interstitial changes throughout both lungs, with worsening perihilar consolidation. Findings may reflect progressive interstitial pulmonary edema or infection. Electronically signed by: Gaurav Peña MD (09/09/2020 10:11 AM) [id number] DICTATED and SIGNED BY: GAURAV PEÑA MD DATE: 09/09/20 [id number] Laboratory Tests Test 09/08/20 12:03 09/08/20 17:26 09/08/20 18:15 09/08/20 21:04 Glucose (Fingerstick) 86 mg/dL (70-99) 120 mg/dL (70-99) 125 mg/dL (70-99) Urine Collection Type U cath Urine Color Yellow Urine Clarity Cloudy Urine pH 5.5 (<5.0-8.0) Urine Specific [place] 1.020 (1.000-1.030) Urine Protein Negative mg/dL (NEG-TRACE) Urine Glucose (UA) Negative mg/dL (NEG) Urine Ketones (Stick) Negative mg/dL (NEG) Urine Blood Negative (NEG) Urine Nitrite Negative (NEG) Urine Bilirubin Negative (NEG) Urine Urobilinogen Dipstick 1.0 mg/dL (0.2 mg/dL) Urine Leukocyte Esterase Negative (NEG) Urine RBC Rare /HPF (0-2) Urine WBC Rare /HPF (0-4) Urine Squamous Epithelial Cells Occ /LPF Urine Bacteria 0 /HPF (0-FEW) Urine Mucus Mod /LPF Urine Yeast Present /HPF Test 09/09/20 05:15 09/09/20 08:19 White Blood Count 29.1 x10^3/uL (4.0-11.0) Red Blood Count 3.47 x10^6/uL (4.30-5.70) Hemoglobin 9.7 g/dL (13.0-17.5) Hematocrit 31.1 % (39.0-53.0) Mean Corpuscular Volume 91 fL (79-100) Mean Corpuscular Hemoglobin 28 pg (25-35) Mean Corpuscular Hemoglobin Concent 31 g/dL (31-37) Red Cell Distribution Width 25.4 % (11.5-14.5) Platelet Count 445 x10^3/uL (140-400) Neutrophils (%) (Auto) 84 % (31-73) Lymphocytes (%) (Auto) 6 % (24-48) Monocytes (%) (Auto) 3 % (0-9) Eosinophils (%) (Auto) 1 % (0-3) Basophils (%) (Auto) 6 % (0-3) Neutrophils # (Auto) 24.4 x10^3/uL (1.8-7.7) Lymphocytes # (Auto) 1.7 x10^3/uL (1.0-4.8) Monocytes # (Auto) 0.9 x10^3/uL (0.0-1.1) Eosinophils # (Auto) 0.3 x10^3/uL (0.0-0.7) Basophils # (Auto) 1.7 x10^3/uL (0.0-0.2) Absolute Reticulocyte Count 0.104 x10^6/uL (0.020-0.120) Percent Reticulocyte Count 3.0 % (0.5-2.3) Immature Reticulocyte Fraction 0.67 (0.20-0.60) Prothrombin Time 26.1 SEC (11.7-14.0) Prothromb Time International Ratio 2.4 (0.8-1.1) Sodium Level 146 mmol/L (136-145) Potassium Level 3.3 mmol/L (3.5-5.1) Chloride Level 110 mmol/L (98-107) Carbon Dioxide Level 25 mmol/L (21-32) Anion Gap 11 (6-14) Blood Urea Nitrogen 52 mg/dL (8-26) Creatinine 1.8 mg/dL (0.7-1.3) Estimated GFR (Cockcroft-Gault) 43.3 Glucose Level 91 mg/dL (70-99) Calcium Level 8.4 mg/dL (8.5-10.1) Iron Level 40 ug/dL (65-175) Total Iron Binding Capacity 99 ug/dL (250-450) Iron Saturation 40 % (15-34) Ferritin 367 ng/mL (26-388) Lactate Dehydrogenase 1473 U/L (85-227) Vitamin B12 Level 977 pg/mL (247-911) Glucose (Fingerstick) 83 mg/dL (70-99) Assessment and Plan Assessmemt and Plan Problems Medical Problems: (1) CHF (congestive heart failure) Status: Acute Comment Review of Relevant I have reviewed the following items tiffany (where applicable) has been applied. Labs Laboratory Tests Test 09/07/20 12:10 09/07/20 17:29 09/08/20 07:26 09/08/20 07:45 Glucose (Fingerstick) 110 mg/dL (70-99) 108 mg/dL (70-99) 86 mg/dL (70-99) White Blood Count 30.3 x10^3/uL (4.0-11.0) Red Blood Count 3.64 x10^6/uL (4.30-5.70) Hemoglobin 10.2 g/dL (13.0-17.5) Hematocrit 33.2 % (39.0-53.0) Mean Corpuscular Volume 91 fL (79-100) Mean Corpuscular Hemoglobin 28 pg (25-35) Mean Corpuscular Hemoglobin Concent 31 g/dL (31-37) Red Cell Distribution Width 25.2 % (11.5-14.5) Platelet Count 412 x10^3/uL (140-400) Neutrophils (%) (Auto) 84 % (31-73) Lymphocytes (%) (Auto) 7 % (24-48) Monocytes (%) (Auto) 3 % (0-9) Eosinophils (%) (Auto) 1 % (0-3) Basophils (%) (Auto) 6 % (0-3) Neutrophils # (Auto) 25.4 x10^3/uL (1.8-7.7) Lymphocytes # (Auto) 2.1 x10^3/uL (1.0-4.8) Monocytes # (Auto) 0.8 x10^3/uL (0.0-1.1) Eosinophils # (Auto) 0.4 x10^3/uL (0.0-0.7) Basophils # (Auto) 1.7 x10^3/uL (0.0-0.2) Segmented Neutrophils % 80 % (35-66) Band Neutrophils % 1 % (0-9) Lymphocytes % 5 % (24-48) Monocytes % 5 % (0-10) Eosinophils % 5 % (0-5) Basophils % 4 % (0-3) Nucleated Red Blood Cells 3 Dohle Bodies Few Platelet Estimate Adequate (ADEQUATE) Large Platelets Occ Polychromasia Slight Basophilic Stippling Present Anisocytosis Mod Prothrombin Time 27.5 SEC (11.7-14.0) Prothromb Time International Ratio 2.6 (0.8-1.1) Sodium Level 147 mmol/L (136-145) Potassium Level 3.5 mmol/L (3.5-5.1) Chloride Level 110 mmol/L (98-107) Carbon Dioxide Level 25 mmol/L (21-32) Anion Gap 12 (6-14) Blood Urea Nitrogen 54 mg/dL (8-26) Creatinine 2.0 mg/dL (0.7-1.3) Estimated GFR (Cockcroft-Gault) 38.3 Glucose Level 91 mg/dL (70-99) Calcium Level 8.5 mg/dL (8.5-10.1) Test 09/08/20 09:40 09/08/20 12:03 09/08/20 17:26 09/08/20 18:15 SARS-CoV-2 RNA (ZIA) Negative (Negative) Glucose (Fingerstick) 86 mg/dL (70-99) 120 mg/dL (70-99) Urine Collection Type U cath Urine Color Yellow Urine Clarity Cloudy Urine pH 5.5 (<5.0-8.0) Urine Specific [place] 1.020 (1.000-1.030) Urine Protein Negative mg/dL (NEG-TRACE) Urine Glucose (UA) Negative mg/dL (NEG) Urine Ketones (Stick) Negative mg/dL (NEG) Urine Blood Negative (NEG) Urine Nitrite Negative (NEG) Urine Bilirubin Negative (NEG) Urine Urobilinogen Dipstick 1.0 mg/dL (0.2 mg/dL) Urine Leukocyte Esterase Negative (NEG) Urine RBC Rare /HPF (0-2) Urine WBC Rare /HPF (0-4) Urine Squamous Epithelial Cells Occ /LPF Urine Bacteria 0 /HPF (0-FEW) Urine Mucus Mod /LPF Urine Yeast Present /HPF Test 09/08/20 21:04 09/09/20 05:15 09/09/20 08:19 Glucose (Fingerstick) 125 mg/dL (70-99) 83 mg/dL (70-99) White Blood Count 29.1 x10^3/uL (4.0-11.0) Red Blood Count 3.47 x10^6/uL (4.30-5.70) Hemoglobin 9.7 g/dL (13.0-17.5) Hematocrit 31.1 % (39.0-53.0) Mean Corpuscular Volume 91 fL (79-100) Mean Corpuscular Hemoglobin 28 pg (25-35) Mean Corpuscular Hemoglobin Concent 31 g/dL (31-37) Red Cell Distribution Width 25.4 % (11.5-14.5) Platelet Count 445 x10^3/uL (140-400) Neutrophils (%) (Auto) 84 % (31-73) Lymphocytes (%) (Auto) 6 % (24-48) Monocytes (%) (Auto) 3 % (0-9) Eosinophils (%) (Auto) 1 % (0-3) Basophils (%) (Auto) 6 % (0-3) Neutrophils # (Auto) 24.4 x10^3/uL (1.8-7.7) Lymphocytes # (Auto) 1.7 x10^3/uL (1.0-4.8) Monocytes # (Auto) 0.9 x10^3/uL (0.0-1.1) Eosinophils # (Auto) 0.3 x10^3/uL (0.0-0.7) Basophils # (Auto) 1.7 x10^3/uL (0.0-0.2) Absolute Reticulocyte Count 0.104 x10^6/uL (0.020-0.120) Percent Reticulocyte Count 3.0 % (0.5-2.3) Immature Reticulocyte Fraction 0.67 (0.20-0.60) Prothrombin Time 26.1 SEC (11.7-14.0) Prothromb Time International Ratio 2.4 (0.8-1.1) Sodium Level 146 mmol/L (136-145) Potassium Level 3.3 mmol/L (3.5-5.1) Chloride Level 110 mmol/L (98-107) Carbon Dioxide Level 25 mmol/L (21-32) Anion Gap 11 (6-14) Blood Urea Nitrogen 52 mg/dL (8-26) Creatinine 1.8 mg/dL (0.7-1.3) Estimated GFR (Cockcroft-Gault) 43.3 Glucose Level 91 mg/dL (70-99) Calcium Level 8.4 mg/dL (8.5-10.1) Iron Level 40 ug/dL (65-175) Total Iron Binding Capacity 99 ug/dL (250-450) Iron Saturation 40 % (15-34) Ferritin 367 ng/mL (26-388) Lactate Dehydrogenase 1473 U/L (85-227) Vitamin B12 Level 977 pg/mL (247-911) Laboratory Tests Test 09/08/20 12:03 09/08/20 17:26 09/08/20 18:15 09/08/20 21:04 Glucose (Fingerstick) 86 mg/dL (70-99) 120 mg/dL (70-99) 125 mg/dL (70-99) Urine Collection Type U cath Urine Color Yellow Urine Clarity Cloudy Urine pH 5.5 (<5.0-8.0) Urine Specific [place] 1.020 (1.000-1.030) Urine Protein Negative mg/dL (NEG-TRACE) Urine Glucose (UA) Negative mg/dL (NEG) Urine Ketones (Stick) Negative mg/dL (NEG) Urine Blood Negative (NEG) Urine Nitrite Negative (NEG) Urine Bilirubin Negative (NEG) Urine Urobilinogen Dipstick 1.0 mg/dL (0.2 mg/dL) Urine Leukocyte Esterase Negative (NEG) Urine RBC Rare /HPF (0-2) Urine WBC Rare /HPF (0-4) Urine Squamous Epithelial Cells Occ /LPF Urine Bacteria 0 /HPF (0-FEW) Urine Mucus Mod /LPF Urine Yeast Present /HPF Test 09/09/20 05:15 09/09/20 08:19 White Blood Count 29.1 x10^3/uL (4.0-11.0) Red Blood Count 3.47 x10^6/uL (4.30-5.70) Hemoglobin 9.7 g/dL (13.0-17.5) Hematocrit 31.1 % (39.0-53.0) Mean Corpuscular Volume 91 fL (79-100) Mean Corpuscular Hemoglobin 28 pg (25-35) Mean Corpuscular Hemoglobin Concent 31 g/dL (31-37) Red Cell Distribution Width 25.4 % (11.5-14.5) Platelet Count 445 x10^3/uL (140-400) Neutrophils (%) (Auto) 84 % (31-73) Lymphocytes (%) (Auto) 6 % (24-48) Monocytes (%) (Auto) 3 % (0-9) Eosinophils (%) (Auto) 1 % (0-3) Basophils (%) (Auto) 6 % (0-3) Neutrophils # (Auto) 24.4 x10^3/uL (1.8-7.7) Lymphocytes # (Auto) 1.7 x10^3/uL (1.0-4.8) Monocytes # (Auto) 0.9 x10^3/uL (0.0-1.1) Eosinophils # (Auto) 0.3 x10^3/uL (0.0-0.7) Basophils # (Auto) 1.7 x10^3/uL (0.0-0.2) Absolute Reticulocyte Count 0.104 x10^6/uL (0.020-0.120) Percent Reticulocyte Count 3.0 % (0.5-2.3) Immature Reticulocyte Fraction 0.67 (0.20-0.60) Prothrombin Time 26.1 SEC (11.7-14.0) Prothromb Time International Ratio 2.4 (0.8-1.1) Sodium Level 146 mmol/L (136-145) Potassium Level 3.3 mmol/L (3.5-5.1) Chloride Level 110 mmol/L (98-107) Carbon Dioxide Level 25 mmol/L (21-32) Anion Gap 11 (6-14) Blood Urea Nitrogen 52 mg/dL (8-26) Creatinine 1.8 mg/dL (0.7-1.3) Estimated GFR (Cockcroft-Gault) 43.3 Glucose Level 91 mg/dL (70-99) Calcium Level 8.4 mg/dL (8.5-10.1) Iron Level 40 ug/dL (65-175) Total Iron Binding Capacity 99 ug/dL (250-450) Iron Saturation 40 % (15-34) Ferritin 367 ng/mL (26-388) Lactate Dehydrogenase 1473 U/L (85-227) Vitamin B12 Level 977 pg/mL (247-911) Glucose (Fingerstick) 83 mg/dL (70-99) Microbiology 09/03/20 Blood Culture - Final, Complete NO GROWTH AFTER 5 DAYS Medications Current Medications Furosemide (Lasix) 40 mg 1X ONCE IVP Last administered on 09/03/20at 21:07; Start 09/03/20 at 21:00; Stop 09/03/20 at 21:01; Status DC Piperacillin Sod/ Tazobactam Sod 3.375 gm/Sodium Chloride 50 ml @ 100 mls/hr 1X ONCE IV Last administered on 09/03/20at 21:08; Start 09/03/20 at 21:00; Stop 09/03/20 at 21:29; Status DC Ondansetron HCl (Zofran) 4 mg PRN Q8HRS PRN IV NAUSEA/VOMITING; Start 09/03/20 at 21:00; Stop 09/04/20 at 20:59; Status DC Morphine Sulfate (Morphine Sulfate) 2 mg PRN Q2HR PRN IV PAIN; Start 09/03/20 at 21:00; Stop 09/04/20 at 20:59; Status DC Acetaminophen (Tylenol) 650 mg PRN Q4HRS PRN PO FEVER > 100.3'F; Start 09/03/20 at 21:00; Stop 09/04/20 at 20:59; Status DC Ascorbic Acid (Vitamin C) 250 mg DAILY PO Last administered on 09/09/20at 09:33; Start 09/04/20 at 09:00 Aspirin (Aspirin Chewable) 81 mg BID PO Last administered on 09/09/20at 09:33; Start 09/04/20 at 09:00 Atorvastatin Calcium (Lipitor) 40 mg DAILY PO Last administered on 09/09/20at 09:33; Start 09/04/20 at 09:00 Bumetanide (Bumex) 1 mg BID92 PO ; Start 09/04/20 at 09:00; Stop 09/04/20 at 07:53; Status DC Digoxin (Lanoxin) 125 mcg DAILY PO ; Start 09/04/20 at 09:00; Stop 09/04/20 at 07:47; Status DC Docusate Sodium (Colace) 100 mg TID PO Last administered on 09/09/20 09:33; Start 09/04/20 at 09:00 Acetaminophen/ Hydrocodone Bitart (Lortab 5/325) 1 tab PRN Q6HRS PRN PO PAIN Last administered on 09/09/20 03:13; Start 09/03/20 at 22:15 Metoprolol Tartrate (Lopressor) 100 mg DAILY PO ; Start 09/04/20 at 09:00; Stop 09/04/20 at 07:29; Status DC Warfarin Sodium (Coumadin Per Pharmacy) 1 each PRN DAILY PRN MC SEE COMMENTS Last administered on 09/09/20at 08:51; Start 09/03/20 at 22:15 Piperacillin Sod/ Tazobactam Sod (Zosyn Per Pharmacy) 1 each PRN DAILY PRN MC SEE COMMENTS; Start 09/03/20 at 22:15 Albuterol/ Ipratropium (Duoneb) 3 ml RTQID NEB Last administered on 09/09/20at 07:20; Start 09/04/20 at 08:00 Prednisone (Prednisone) 40 mg 1X ONCE PO Last administered on 09/03/20at 22:41; Start 09/03/20 at 22:15; Stop 09/03/20 at 22:21; Status DC Insulin Human Lispro (HumaLOG) 0-7 UNITS TIDWMEALS SQ Last administered on 09/04/20at 12:32; Start 09/04/20 at 08:00 Dextrose (Dextrose 50%-Water Syringe) 12.5 gm PRN Q15MIN PRN IV SEE COMMENTS; Start 09/03/20 at 22:15 Piperacillin Sod/ Tazobactam Sod 3.375 gm/Sodium Chloride 50 ml @ 100 mls/hr Q6HRS IV Last administered on 09/09/20at 05:45; Start 09/04/20 at 06:00 Warfarin Sodium (Coumadin - No Dose Today) 1 each 1X WARF ONCE MC Last administered on 09/04/20at 16:00; Start 09/04/20 at 16:00; Stop 09/04/20 at 16:01; Status DC Bumetanide (Bumex) 2.5 mg BID92 IV Last administered on 09/04/20at 15:23; Start 09/04/20 at 09:00; Stop 09/05/20 at 07:46; Status DC Lactobacillus Rhamnosus (Culturelle) 1 cap BID PO Last administered on 09/09/20at 09:32; Start 09/04/20 at 21:00 Tamsulosin HCl (Flomax) 0.4 mg QHS PO Last administered on 09/08/20at 21:00; Start 09/05/20 at 21:00 Bumetanide (Bumex) 1 mg [id number] IV Last administered on 09/09/20at 09:33; Start 09/05/20 at 09:00 Potassium Bicarbonate (Potassium Effervescent Tablet) 40 meq 1X ONCE PO Last administered on 09/05/20at 09:06; Start 09/05/20 at 08:00; Stop 09/05/20 at 08:01; Status DC Warfarin Sodium (Coumadin - No Dose Today) 1 each 1X WARF ONCE MC Last administered on 09/05/20at 15:58; Start 09/05/20 at 16:00; Stop 09/05/20 at 16:01; Status DC Warfarin Sodium (Coumadin - No Dose Today) 1 each 1X WARF ONCE MC Last administered on 09/06/20at 16:00; Start 09/06/20 at 16:00; Stop 09/06/20 at 16:01; Status DC Warfarin Sodium (Coumadin - No Dose Today) 1 each 1X WARF ONCE MC ; Start 09/07/20 at 16:00; Stop 09/07/20 at 16:01; Status DC Bisacodyl (Dulcolax Supp) 10 mg 1X ONCE [place] ; Start 09/07/20 at 13:00; Stop 09/07/20 at 18:32; Status DC Bisacodyl (Dulcolax Supp) 10 mg PRN DAILY PRN [place] CONSTIPATION Last administered on 09/08/20at 08:29; Start 09/07/20 at 18:45 Warfarin Sodium (Coumadin - No Dose Today) 1 each 1X WARF ONCE MC ; Start 09/08/20 at 16:00; Stop 09/08/20 at 16:01; Status Cancel Warfarin Sodium (Coumadin) 4 mg 1X WARF ONCE PO Last administered on 09/08/20at 17:29; Start 09/08/20 at 16:00; Stop 09/08/20 at 16:01; Status DC Warfarin Sodium (Coumadin) 4 mg 1X WARF ONCE PO ; Start 09/09/20 at 16:00; Stop 09/09/20 at 16:01 Potassium Chloride (Klor-Con) 20 meq 1X ONCE PO Last administered on 09/09/20at 09:32; Start 09/09/20 at 10:00; Stop 09/09/20 at 10:01; Status DC Active Scripts Active [place] 5-325 Tablet (Acetaminophen/Hydrocodone Bitart) 1 Each Tablet 7.5 Mg PO PRN Q6HRS PRN 6 Days LAST DOSE GIVEN: Reported Warfarin Sodium 2 Mg Tablet 4 Mg PO Warfarin Sodium 2 Mg Tablet 6 Mg PO QMTH Bumetanide 1 Mg Tablet 1 Mg PO BID Colace (Docusate Sodium) 100 Mg Capsule 1 Cap PO TID Metamucil Powder (Psyllium Seed (with Sugar)) 575 Gm Powder 575 Gm PO DAILY Atorvastatin Calcium 40 Mg Tablet 1 Tab PO DAILY Metoprolol Tartrate 100 Mg Tablet 100 Mg PO DAILY Tamsulosin Hcl 0.4 Mg Cap.er.24h 0.4 Mg PO HS DAILY Vitamin C (Ascorbic Acid) 500 Mg Tablet 250 Mg PO DAILY Aspirin 81 Mg Tab.chew 81 Mg PO BID Lanoxin (Digoxin) 125 Mcg Tablet 125 Mcg PO DAILY Vitals/I & O Vital Sign - Last 24 Hours 09/08/20 09/08/20 09/08/20 09/08/20 11:00 11:21 15:00 15:29 Temp 98.4 98.4 98.4 98.4 Pulse 90 60 Resp 16 16 B/P (MAP) 118/57 (77) 116/52 (73) Pulse Ox 90 98 90 99 O2 Delivery Room Air Room Air Room Air Room Air 09/08/20 09/08/20 09/08/20 09/08/20 18:28 19:30 20:00 20:30 Temp 99.7 98.8 99.7 98.8 Pulse 77 Resp 20 B/P (MAP) 122/55 (77) Pulse Ox 99 95 O2 Delivery Room Air Room Air Room Air 09/08/20 09/09/20 09/09/20 09/09/20 22:00 02:27 03:13 03:43 Temp 97.8 98.8 97.8 98.8 Pulse 89 66 Resp 18 18 16 18 B/P (MAP) 122/60 (80) 123/54 (77) Pulse Ox 98 95 95 95 O2 Delivery Room Air Room Air Room Air Room Air 09/09/20 09/09/20 07:00 07:22 Temp 98.4 98.4 Pulse 62 Resp 16 B/P (MAP) 121/49 (73) Pulse Ox 99 97 O2 Delivery Room Air Room Air Intake and Output 09/08/20 09/08/20 09/09/20 15:00 23:00 07:00 Intake Total 1230 ml 375 ml 500 ml Balance 1230 ml 375 ml 500 ml Justicifation of Admission Dx: Justifications for Admission: Justification of Admission Dx: Yes JAYLIN LAGUERRE MD Sep 09, 2020 10:40
[2020-09-09 11:30] VITALS: BP 128/57
--- NOTE | 2020-09-09 12:57 | PDOC ---
BART PAZ VAULT TELLER 09/09/20 1257: CARDIO Progress Notes Date and Time Date of Service 09/09/20 Time of Evaluation 1250 Subjective Subjective: No Chest Pain, No Palpitations, Other (SOA improved ) Vitals Vitals Vital Signs Date Time Temp Pulse Resp B/P (MAP) Pulse Ox O2 Delivery O2 Flow Rate FiO2 09/09/20 11:30 99.3 89 16 128/57 (80) 94 Room Air 99.3 Weight Weight [ ] Input and Output Intake and Output Intake and Output 09/09/20 07:00 Intake Total 2105 ml Balance 2105 ml Intake Oral 1780 ml IV Total 325 ml # Voids 7 # Bowel Movements 1 Laboratory Labs Laboratory Tests Test 09/08/20 17:26 09/08/20 18:15 09/08/20 21:04 09/09/20 05:15 Glucose (Fingerstick) 120 mg/dL (70-99) 125 mg/dL (70-99) Urine Collection Type U cath Urine Color Yellow Urine Clarity Cloudy Urine pH 5.5 (<5.0-8.0) Urine Specific [place] 1.020 (1.000-1.030) Urine Protein Negative mg/dL (NEG-TRACE) Urine Glucose (UA) Negative mg/dL (NEG) Urine Ketones (Stick) Negative mg/dL (NEG) Urine Blood Negative (NEG) Urine Nitrite Negative (NEG) Urine Bilirubin Negative (NEG) Urine Urobilinogen Dipstick 1.0 mg/dL (0.2 mg/dL) Urine Leukocyte Esterase Negative (NEG) Urine RBC Rare /HPF (0-2) Urine WBC Rare /HPF (0-4) Urine Squamous Epithelial Cells Occ /LPF Urine Bacteria 0 /HPF (0-FEW) Urine Mucus Mod /LPF Urine Yeast Present /HPF White Blood Count 29.1 x10^3/uL (4.0-11.0) Red Blood Count 3.47 x10^6/uL (4.30-5.70) Hemoglobin 9.7 g/dL (13.0-17.5) Hematocrit 31.1 % (39.0-53.0) Mean Corpuscular Volume 91 fL (79-100) Mean Corpuscular Hemoglobin 28 pg (25-35) Mean Corpuscular Hemoglobin Concent 31 g/dL (31-37) Red Cell Distribution Width 25.4 % (11.5-14.5) Platelet Count 445 x10^3/uL (140-400) Neutrophils (%) (Auto) 84 % (31-73) Lymphocytes (%) (Auto) 6 % (24-48) Monocytes (%) (Auto) 3 % (0-9) Eosinophils (%) (Auto) 1 % (0-3) Basophils (%) (Auto) 6 % (0-3) Neutrophils # (Auto) 24.4 x10^3/uL (1.8-7.7) Lymphocytes # (Auto) 1.7 x10^3/uL (1.0-4.8) Monocytes # (Auto) 0.9 x10^3/uL (0.0-1.1) Eosinophils # (Auto) 0.3 x10^3/uL (0.0-0.7) Basophils # (Auto) 1.7 x10^3/uL (0.0-0.2) Absolute Reticulocyte Count 0.104 x10^6/uL (0.020-0.120) Percent Reticulocyte Count 3.0 % (0.5-2.3) Immature Reticulocyte Fraction 0.67 (0.20-0.60) Prothrombin Time 26.1 SEC (11.7-14.0) Prothromb Time International Ratio 2.4 (0.8-1.1) Sodium Level 146 mmol/L (136-145) Potassium Level 3.3 mmol/L (3.5-5.1) Chloride Level 110 mmol/L (98-107) Carbon Dioxide Level 25 mmol/L (21-32) Anion Gap 11 (6-14) Blood Urea Nitrogen 52 mg/dL (8-26) Creatinine 1.8 mg/dL (0.7-1.3) Estimated GFR (Cockcroft-Gault) 43.3 Glucose Level 91 mg/dL (70-99) Calcium Level 8.4 mg/dL (8.5-10.1) Iron Level 40 ug/dL (65-175) Total Iron Binding Capacity 99 ug/dL (250-450) Iron Saturation 40 % (15-34) Ferritin 367 ng/mL (26-388) Lactate Dehydrogenase 1473 U/L (85-227) Vitamin B12 Level 977 pg/mL (247-911) Test 09/09/20 08:19 Glucose (Fingerstick) 83 mg/dL (70-99) Microbiology Micro Microbiology 09/03/20 Blood Culture - Final, Complete NO GROWTH AFTER 5 DAYS Physical Exam HEENT: Neck Supple W Full Motion Chest: Symmetric LUNGS: Clear to Auscultation Heart: irregularly irregular (AFIB- rate controlled ) Abdomen: Soft N/T Extremities: Other (1-2+ bilateral LE edema ) Neurology: alert, oriented, follow commands Assessment Assessment 1. Acute respiratory failure with a/c CHF and untreated USAMA. better 2. 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 Echo 07/28 with LVEF 45%. improved s/p diuresis 3. CAD; catheterization 08/2018 with VP [employer]ELOPMENT of LAD with collaterals, which is unchanged from previous cath in 2013. clinically stable, CP free. 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 4. Permanent AFIB; rate controlled with BB. on warfarin for stroke prevention. INR 2.4 5. 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 Trace) - recent device check showed normal function. no dizziness, syncope 6. Hypertension; controlled 7. Hyperlipidemia; statin 8. Diabetes, II; as per IM 9. DION on CKD; Cr down to 1.8 10. Leukocytosis, low-grade fevers. BC negative. Recommendations Bumex with close monitoring of renal function Secondary prevention measures BB for rate control Warfarin for stroke prophylaxis Supportive care Justicifation of Admission Dx: Justifications for Admission: Justification of Admission Dx: Yes SHAWN PARKER MD 09/09/203: CARDIO Progress Notes Assessment Assessment Patient seen and examined. Agree with PROFESSOR OF CHEMISTRY's assessment and plan. Ac on chr combined systolic and diast HF better compensated CAD clinically stable Permanent atrial fibrillation rate controlled Continue warfarin for stroke prophylaxis SSS s/p PPM stable BART PAZ APRN Sep 09, 2020 12:57 SHAWN PARKER MD Sep 09, 2020 21:43
--- NOTE | 2020-09-09 13:11 | PDOC ---
PULMONARY PROGRESS NOTES DATE: 09/09/20 TIME: 13:10 Subjective Patient continues to report back pain. Pt. remains on room air low grade fever overnight no overnight events Vitals Vital Signs Date Time Temp Pulse Resp B/P (MAP) Pulse Ox O2 Delivery O2 Flow Rate FiO2 09/09/20 11:30 99.3 89 16 128/57 (80) 94 Room Air 99.3 ROS: No Nausea, No Chest Pain, No Abdominal Pain, No Increase Cough General: Alert, No acute distress Lungs: Crackles (bases ) Cardiovascular: S1, S2 Abdomen: Soft, Non-tender Neuro Exam: Alert, Oriented Extremities: Other (edema) Skin: Warm, Dry Labs Laboratory Tests Test 09/07/20 17:29 09/08/20 07:26 09/08/20 07:45 09/08/20 09:40 Glucose (Fingerstick) 108 mg/dL (70-99) 86 mg/dL (70-99) White Blood Count 30.3 x10^3/uL (4.0-11.0) Red Blood Count 3.64 x10^6/uL (4.30-5.70) Hemoglobin 10.2 g/dL (13.0-17.5) Hematocrit 33.2 % (39.0-53.0) Mean Corpuscular Volume 91 fL (79-100) Mean Corpuscular Hemoglobin 28 pg (25-35) Mean Corpuscular Hemoglobin Concent 31 g/dL (31-37) Red Cell Distribution Width 25.2 % (11.5-14.5) Platelet Count 412 x10^3/uL (140-400) Neutrophils (%) (Auto) 84 % (31-73) Lymphocytes (%) (Auto) 7 % (24-48) Monocytes (%) (Auto) 3 % (0-9) Eosinophils (%) (Auto) 1 % (0-3) Basophils (%) (Auto) 6 % (0-3) Neutrophils # (Auto) 25.4 x10^3/uL (1.8-7.7) Lymphocytes # (Auto) 2.1 x10^3/uL (1.0-4.8) Monocytes # (Auto) 0.8 x10^3/uL (0.0-1.1) Eosinophils # (Auto) 0.4 x10^3/uL (0.0-0.7) Basophils # (Auto) 1.7 x10^3/uL (0.0-0.2) Segmented Neutrophils % 80 % (35-66) Band Neutrophils % 1 % (0-9) Lymphocytes % 5 % (24-48) Monocytes % 5 % (0-10) Eosinophils % 5 % (0-5) Basophils % 4 % (0-3) Nucleated Red Blood Cells 3 Dohle Bodies Few Platelet Estimate Adequate (ADEQUATE) Large Platelets Occ Polychromasia Slight Basophilic Stippling Present Anisocytosis Mod Prothrombin Time 27.5 SEC (11.7-14.0) Prothromb Time International Ratio 2.6 (0.8-1.1) Sodium Level 147 mmol/L (136-145) Potassium Level 3.5 mmol/L (3.5-5.1) Chloride Level 110 mmol/L (98-107) Carbon Dioxide Level 25 mmol/L (21-32) Anion Gap 12 (6-14) Blood Urea Nitrogen 54 mg/dL (8-26) Creatinine 2.0 mg/dL (0.7-1.3) Estimated GFR (Cockcroft-Gault) 38.3 Glucose Level 91 mg/dL (70-99) Calcium Level 8.5 mg/dL (8.5-10.1) SARS-CoV-2 RNA (ZIA) Negative (Negative) Test 09/08/20 12:03 09/08/20 17:26 09/08/20 18:15 09/08/20 21:04 Glucose (Fingerstick) 86 mg/dL (70-99) 120 mg/dL (70-99) 125 mg/dL (70-99) Urine Collection Type U cath Urine Color Yellow Urine Clarity Cloudy Urine pH 5.5 (<5.0-8.0) Urine Specific [place] 1.020 (1.000-1.030) Urine Protein Negative mg/dL (NEG-TRACE) Urine Glucose (UA) Negative mg/dL (NEG) Urine Ketones (Stick) Negative mg/dL (NEG) Urine Blood Negative (NEG) Urine Nitrite Negative (NEG) Urine Bilirubin Negative (NEG) Urine Urobilinogen Dipstick 1.0 mg/dL (0.2 mg/dL) Urine Leukocyte Esterase Negative (NEG) Urine RBC Rare /HPF (0-2) Urine WBC Rare /HPF (0-4) Urine Squamous Epithelial Cells Occ /LPF Urine Bacteria 0 /HPF (0-FEW) Urine Mucus Mod /LPF Urine Yeast Present /HPF Test 09/09/20 05:15 09/09/20 08:19 White Blood Count 29.1 x10^3/uL (4.0-11.0) Red Blood Count 3.47 x10^6/uL (4.30-5.70) Hemoglobin 9.7 g/dL (13.0-17.5) Hematocrit 31.1 % (39.0-53.0) Mean Corpuscular Volume 91 fL (79-100) Mean Corpuscular Hemoglobin 28 pg (25-35) Mean Corpuscular Hemoglobin Concent 31 g/dL (31-37) Red Cell Distribution Width 25.4 % (11.5-14.5) Platelet Count 445 x10^3/uL (140-400) Neutrophils (%) (Auto) 84 % (31-73) Lymphocytes (%) (Auto) 6 % (24-48) Monocytes (%) (Auto) 3 % (0-9) Eosinophils (%) (Auto) 1 % (0-3) Basophils (%) (Auto) 6 % (0-3) Neutrophils # (Auto) 24.4 x10^3/uL (1.8-7.7) Lymphocytes # (Auto) 1.7 x10^3/uL (1.0-4.8) Monocytes # (Auto) 0.9 x10^3/uL (0.0-1.1) Eosinophils # (Auto) 0.3 x10^3/uL (0.0-0.7) Basophils # (Auto) 1.7 x10^3/uL (0.0-0.2) Absolute Reticulocyte Count 0.104 x10^6/uL (0.020-0.120) Percent Reticulocyte Count 3.0 % (0.5-2.3) Immature Reticulocyte Fraction 0.67 (0.20-0.60) Prothrombin Time 26.1 SEC (11.7-14.0) Prothromb Time International Ratio 2.4 (0.8-1.1) Sodium Level 146 mmol/L (136-145) Potassium Level 3.3 mmol/L (3.5-5.1) Chloride Level 110 mmol/L (98-107) Carbon Dioxide Level 25 mmol/L (21-32) Anion Gap 11 (6-14) Blood Urea Nitrogen 52 mg/dL (8-26) Creatinine 1.8 mg/dL (0.7-1.3) Estimated GFR (Cockcroft-Gault) 43.3 Glucose Level 91 mg/dL (70-99) Calcium Level 8.4 mg/dL (8.5-10.1) Iron Level 40 ug/dL (65-175) Total Iron Binding Capacity 99 ug/dL (250-450) Iron Saturation 40 % (15-34) Ferritin 367 ng/mL (26-388) Lactate Dehydrogenase 1473 U/L (85-227) Vitamin B12 Level 977 pg/mL (247-911) Glucose (Fingerstick) 83 mg/dL (70-99) Laboratory Tests Test 09/08/20 17:26 09/08/20 18:15 09/08/20 21:04 09/09/20 05:15 Glucose (Fingerstick) 120 mg/dL (70-99) 125 mg/dL (70-99) Urine Collection Type U cath Urine Color Yellow Urine Clarity Cloudy Urine pH 5.5 (<5.0-8.0) Urine Specific [place] 1.020 (1.000-1.030) Urine Protein Negative mg/dL (NEG-TRACE) Urine Glucose (UA) Negative mg/dL (NEG) Urine Ketones (Stick) Negative mg/dL (NEG) Urine Blood Negative (NEG) Urine Nitrite Negative (NEG) Urine Bilirubin Negative (NEG) Urine Urobilinogen Dipstick 1.0 mg/dL (0.2 mg/dL) Urine Leukocyte Esterase Negative (NEG) Urine RBC Rare /HPF (0-2) Urine WBC Rare /HPF (0-4) Urine Squamous Epithelial Cells Occ /LPF Urine Bacteria 0 /HPF (0-FEW) Urine Mucus Mod /LPF Urine Yeast Present /HPF White Blood Count 29.1 x10^3/uL (4.0-11.0) Red Blood Count 3.47 x10^6/uL (4.30-5.70) Hemoglobin 9.7 g/dL (13.0-17.5) Hematocrit 31.1 % (39.0-53.0) Mean Corpuscular Volume 91 fL (79-100) Mean Corpuscular Hemoglobin 28 pg (25-35) Mean Corpuscular Hemoglobin Concent 31 g/dL (31-37) Red Cell Distribution Width 25.4 % (11.5-14.5) Platelet Count 445 x10^3/uL (140-400) Neutrophils (%) (Auto) 84 % (31-73) Lymphocytes (%) (Auto) 6 % (24-48) Monocytes (%) (Auto) 3 % (0-9) Eosinophils (%) (Auto) 1 % (0-3) Basophils (%) (Auto) 6 % (0-3) Neutrophils # (Auto) 24.4 x10^3/uL (1.8-7.7) Lymphocytes # (Auto) 1.7 x10^3/uL (1.0-4.8) Monocytes # (Auto) 0.9 x10^3/uL (0.0-1.1) Eosinophils # (Auto) 0.3 x10^3/uL (0.0-0.7) Basophils # (Auto) 1.7 x10^3/uL (0.0-0.2) Absolute Reticulocyte Count 0.104 x10^6/uL (0.020-0.120) Percent Reticulocyte Count 3.0 % (0.5-2.3) Immature Reticulocyte Fraction 0.67 (0.20-0.60) Prothrombin Time 26.1 SEC (11.7-14.0) Prothromb Time International Ratio 2.4 (0.8-1.1) Sodium Level 146 mmol/L (136-145) Potassium Level 3.3 mmol/L (3.5-5.1) Chloride Level 110 mmol/L (98-107) Carbon Dioxide Level 25 mmol/L (21-32) Anion Gap 11 (6-14) Blood Urea Nitrogen 52 mg/dL (8-26) Creatinine 1.8 mg/dL (0.7-1.3) Estimated GFR (Cockcroft-Gault) 43.3 Glucose Level 91 mg/dL (70-99) Calcium Level 8.4 mg/dL (8.5-10.1) Iron Level 40 ug/dL (65-175) Total Iron Binding Capacity 99 ug/dL (250-450) Iron Saturation 40 % (15-34) Ferritin 367 ng/mL (26-388) Lactate Dehydrogenase 1473 U/L (85-227) Vitamin B12 Level 977 pg/mL (247-911) Test 09/09/20 08:19 Glucose (Fingerstick) 83 mg/dL (70-99) Medications Active Scripts Medications Dose Route/Sig Max Daily Dose Days Date Category Dose Instructions Bumetanide 1 Mg Tablet 1 Mg PO BID 07/28/20 Reported [place] 5-325 Tablet (Acetaminophen/Hydrocodone Bitart) 1 Each Tablet 7.5 Mg PO PRN Q6HRS PRN 6 09/20/18 Rx LAST DOSE GIVEN: Colace (Docusate Sodium) 100 Mg Capsule 1 Cap PO TID 09/09/18 Reported Metamucil Powder (Psyllium Seed (with Sugar)) 575 Gm Powder 575 Gm PO DAILY 09/09/18 Reported Atorvastatin Calcium 40 Mg Tablet 1 Tab PO DAILY 08/12/18 Reported Metoprolol Tartrate 100 Mg Tablet 100 Mg PO DAILY 11/08/17 Reported Tamsulosin Hcl 0.4 Mg Cap.er.24h 0.4 Mg PO HS DAILY 11/08/17 Reported Vitamin C (Ascorbic Acid) 500 Mg Tablet 250 Mg PO DAILY 05/08/14 Reported Warfarin Sodium 5 Mg Tablet 1.5 Tab PO QWE 04/18/14 Reported Warfarin Sodium 5 Mg Tablet 1 Tab PO DAILY EXCEPT WED. 04/18/14 Reported Aspirin 81 Mg Tab.chew 81 Mg PO BID 08/22/13 Reported Lanoxin (Digoxin) 125 Mcg Tablet 125 Mcg PO DAILY 08/22/13 Reported Impression . IMPRESSION: 1. Dyspnea secondary to acute systolic and diastolic congestive heart failure--improving on room air 2. Abnormal chest x-ray. 3. 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 4. Cardiomyopathy. 5. 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 6. Obstructive sleep apnea-hypopnea syndrome, CPAP noncompliant. 7. Paroxysmal atrial fibrillation, on Coumadin. 8. Acute kidney injury/chronic kidney disease. Plan . RECOMMENDATIONS: We will continue current support Titrate FiO2 to keep O2 saturation 92%, currently yon room air NEBS Follow cardiology recs----Echocardiogram 2019 ejection fraction of 40% Follow nephrology recs -- bumex currently on hold-- monitor renal function ongoing education of importance of CPAP, pt. still declines and He understands the risks of not treating obstructive sleep apnea-hypopnea syndrome. Continue Coumadin. Keep INR between 2 and 3. Continue antibiotic, zosyn DVT/GI PPX D/W RN BREN CARDOZO MD Sep 09, 2020 13:11
--- NOTE | 2020-09-09 13:27 | NUR ---
SS following up with discharge planning. SS reviewed pt chart and discussed with pt RN. Pt is currently on room air. COVID19 negative. Pt on IV Bumex and IV Zosyn. PT/OT recommended custodial unit. Pt accepted at [facility], ; fax [phone]. SS will continue to follow for discharge planning.
[2020-09-09] MEDS: LINEZOLID 600 MG TABLET PO SCH ×2 (14:05→21:24)
[2020-09-09 15:00] VITALS: BP 114/51
[2020-09-09] MEDS ORDERED: WARFARIN 4 MG TABLET. PO ONE (16:00)
[2020-09-09 19:00] VITALS: BP 124/51
--- NOTE | 2020-09-09 19:38 | NUR ---
PT CALL TO CHECK ON PT STATUS, PT REQUEST TO BE NOTIFIED PRIOR TO ANY PROCEDURE. PT VERBALIZED SHE DOES NOT WANT PT TO HAVE BONE BIOPSY, AND WOULD LIKE FOR NURSE TO CALL (MRS DELCID) DAILY OF PT STATUS. WILL CONT TO MONITOR PT STATUS AND SAFETY. CALL LIGHT IN PLACE. PMRN
[2020-09-09] MEDS: TAMSULOSIN 0.4 MG CAP.ER.24H. PO SCH (21:24)
[2020-09-09 23:00] VITALS: BP 111/75
--- NOTE | 2020-09-10 02:13 | CONS ---
DATE OF CONSULTATION: 09/09/2020 REFERRING PHYSICIAN: Dr. Tucker. REASON FOR CONSULTATION: Sepsis. HISTORY OF PRESENT ILLNESS: An 89-year-old gentleman presented to the ER on 09/03/2020 with shortness of breath; lower extremity edema, which got worse; and cough. The patient had leukocytosis with a WBC count of 27,000 on presentation and went up to 30,000 yesterday with hemoglobin of 10.2, platelets of 454 on admission, repeat was 412, today it is 444. The patient had been recently discharged with CHF exacerbation. UA on admission was negative. Albumin was 2.3, creatinine of 2.2, total bilirubin of 2.4, BNP of 31,000, TSH of ____, LDH was 1473, and iron of 40. Chest x-ray showed mild pulmonary edema. Lumbar spine x-ray showed DJD. Repeat x-ray today showed worsening interstitial changes throughout both lungs with worsening perihilar consolidation. ID consultation has been requested for antibiotic management. Blood cultures from 09/03/2020 remain negative so far. PAST MEDICAL HISTORY: Atrial fibrillation; coronary artery disease; occluded LAD; congestive heart failure, diastolic; hypertension; hyperlipidemia; COPD; osteoarthritis; and diabetes. PAST SURGICAL HISTORY: Pacemaker, cholecystectomy, vein stripping, and generator change. REVIEW OF SYSTEMS: He had a large bowel movement today. Denies any fevers. Still has some shortness of breath, leg swelling is improving. No nausea, vomiting, diarrhea, headache, sore throat, or difficulty swallowing, or symptoms. SOCIAL HISTORY: No smoking, no alcohol. Lives at home with and son. FAMILY HISTORY: Noncontributory. ALLERGIES: No known drug allergies. PHYSICAL EXAMINATION: VITAL SIGNS: Temperature 98.4, pulse 62, respirations 16, blood pressure 121/____, and oxygen saturation 97% on room air. GENERAL: Pleasant, alert, awake male, sitting upright in chair in no acute distress. HEENT: Normocephalic, atraumatic. Oral mucosa moist. NECK: Supple. LUNGS: Mild crackles. HEART: S1, S2. Pacemaker without signs of complication. ABDOMEN: Soft, nontender, and nondistended. EXTREMITIES: Swollen. No cyanosis. DERMATOLOGIC: Warm, dry. No generalized rash. NEUROLOGIC: Alert, awake, answers questions appropriately. PSYCHIATRIC: Calm and cooperative. LABORATORY DATA: WBC 29, was 30.3, on admission was 27.3; hemoglobin 9.7; hematocrit 31.1; and platelets 445. Sodium 146, potassium 3.3, chloride 110, bicarbonate 25, BUN 52, and creatinine 1.8. LDH is 1473. Iron 40. UA negative. SARS COVID rapid negative. MICRO: Blood culture negative from 09/03. RADIOLOGY: Chest x-ray as above. Lumbar spine x-ray as above IMPRESSION: 1. Leukocytosis, questionable etiology, could be reactive, though has worsened here after admission from 27K. Previous white count was 14 K in July,has had wbc that has been within normal limits. 2. Acute on chronic heart failure. 3. Coronary artery disease. 4. Permanent atrial fibrillation. 5. Diabetes. 6. Dysphagia. 7. Anemia and thrombocytosis. 8. Generalized debility. 9. Constipation had bm today RECOMMENDATIONS: 1. Continue Zosyn, may need renal dosing. 2. Start Zyvox. 3. If patient has diarrhea, check for C. diff. 4. Followup labs and cultures. 5. Trend WBC. 6. Maintain aspiration precaution. Thank you for allowing us to participate in this patient's care. If you have any questions, do not hesitate to contact me. Discussed with nursing staff. CAROLE/MIKA/ZULEMA DR: Eloy TID: [id number] [facility]
[2020-09-10 03:00] VITALS: BP 104/53
[2020-09-10] MEDS: PIPERACILLIN/TAZOBACTAM 3.375 GM in IV NORMAL SALINE 50ML 50 ML IV SCH (05:09)
[2020-09-10 05:24] LABS: BASO # 1.6 x10^3/uL (0.0-0.2); BASO % 5 % (0-3); EOS # 0.5 x10^3/uL (0.0-0.7); EOS % 2 % (0-3); HEMATOCRIT 30.9 % (39.0-53.0); HEMOGLOBIN 9.4 g/dL (13.0-17.5); LYMPH # 1.8 x10^3/uL (1.0-4.8); LYMPH % 6 % (24-48); MEAN CORPUSCULAR HEMOGLOBIN 28 pg (25-35); MEAN CORPUSCULAR HGB CONC 30 g/dL (31-37); MEAN CORPUSCULAR VOLUME 91 fL (79-100); MONO # 0.9 x10^3/uL (0.0-1.1); MONO % 3 % (0-9); NEUT # 26.3 x10^3/uL (1.8-7.7); NEUT % 85 % (31-73); PLATELET COUNT 426 x10^3/uL (140-400); RED BLOOD COUNT 3.41 x10^6/uL (4.30-5.70); RED CELL DISTRIBUTION WIDTH 25.2 % (11.5-14.5)
[2020-09-10 05:31] LABS: PROTHROMBIN TIME PATIENT 27.3 SEC (11.7-14.0)
[2020-09-10 05:43] LABS: CALCIUM 8.4 mg/dL (8.5-10.1); CREATININE 1.9 mg/dL (0.7-1.3); GFR 40.7; POTASSIUM 3.7 mmol/L (3.5-5.1)
[2020-09-10 07:00] VITALS: BP 120/79
[2020-09-10] MEDS: INSULIN LISPRO 300 UNITS/3 ML VIAL. SQ SCH ×3 (07:45→16:54)
[2020-09-10] MEDS: IPRATRPIUM/ALBUTEROL 0.5/2.5MG 3 ML NEBU. NEB SCH ×4 (08:15→20:11)
--- NOTE | 2020-09-10 08:31 | PDOC ---
PULMONARY PROGRESS NOTES DATE: 09/10/20 TIME: 08:31 Subjective Pt. resting on room air no SOA or Cough no overnight events worsening WBC Vitals Vital Signs Date Time Temp Pulse Resp B/P (MAP) Pulse Ox O2 Delivery O2 Flow Rate FiO2 09/10/20 08:15 95 Room Air 09/10/20 07:00 98.3 64 20 120/79 (93) 98.3 ROS: No Nausea, No Chest Pain, No Abdominal Pain, No Increase Cough General: Alert, No acute distress Lungs: Crackles (bases ) Cardiovascular: S1, S2 Abdomen: Soft, Non-tender Neuro Exam: Alert, Oriented Extremities: Other (edema) Skin: Warm, Dry Labs Laboratory Tests Test 09/08/20 09:40 09/08/20 12:03 09/08/20 17:26 09/08/20 18:15 SARS-CoV-2 RNA (ZIA) Negative (Negative) Glucose (Fingerstick) 86 mg/dL (70-99) 120 mg/dL (70-99) Urine Collection Type U cath Urine Color Yellow Urine Clarity Cloudy Urine pH 5.5 (<5.0-8.0) Urine Specific Flushing 1.020 (1.000-1.030) Urine Protein Negative mg/dL (NEG-TRACE) Urine Glucose (UA) Negative mg/dL (NEG) Urine Ketones (Stick) Negative mg/dL (NEG) Urine Blood Negative (NEG) Urine Nitrite Negative (NEG) Urine Bilirubin Negative (NEG) Urine Urobilinogen Dipstick 1.0 mg/dL (0.2 mg/dL) Urine Leukocyte Esterase Negative (NEG) Urine RBC Rare /HPF (0-2) Urine WBC Rare /HPF (0-4) Urine Squamous Epithelial Cells Occ /LPF Urine Bacteria 0 /HPF (0-FEW) Urine Mucus Mod /LPF Urine Yeast Present /HPF Test 09/08/20 21:04 09/09/20 05:15 09/09/20 08:19 09/09/20 17:31 Glucose (Fingerstick) 125 mg/dL (70-99) 83 mg/dL (70-99) 74 mg/dL (70-99) White Blood Count 29.1 x10^3/uL (4.0-11.0) Red Blood Count 3.47 x10^6/uL (4.30-5.70) Hemoglobin 9.7 g/dL (13.0-17.5) Hematocrit 31.1 % (39.0-53.0) Mean Corpuscular Volume 91 fL (79-100) Mean Corpuscular Hemoglobin 28 pg (25-35) Mean Corpuscular Hemoglobin Concent 31 g/dL (31-37) Red Cell Distribution Width 25.4 % (11.5-14.5) Platelet Count 445 x10^3/uL (140-400) Neutrophils (%) (Auto) 84 % (31-73) Lymphocytes (%) (Auto) 6 % (24-48) Monocytes (%) (Auto) 3 % (0-9) Eosinophils (%) (Auto) 1 % (0-3) Basophils (%) (Auto) 6 % (0-3) Neutrophils # (Auto) 24.4 x10^3/uL (1.8-7.7) Lymphocytes # (Auto) 1.7 x10^3/uL (1.0-4.8) Monocytes # (Auto) 0.9 x10^3/uL (0.0-1.1) Eosinophils # (Auto) 0.3 x10^3/uL (0.0-0.7) Basophils # (Auto) 1.7 x10^3/uL (0.0-0.2) Absolute Reticulocyte Count 0.104 x10^6/uL (0.020-0.120) Percent Reticulocyte Count 3.0 % (0.5-2.3) Immature Reticulocyte Fraction 0.67 (0.20-0.60) Haptoglobin 28 mg/dL (38-329) Prothrombin Time 26.1 SEC (11.7-14.0) Prothromb Time International Ratio 2.4 (0.8-1.1) Sodium Level 146 mmol/L (136-145) Potassium Level 3.3 mmol/L (3.5-5.1) Chloride Level 110 mmol/L (98-107) Carbon Dioxide Level 25 mmol/L (21-32) Anion Gap 11 (6-14) Blood Urea Nitrogen 52 mg/dL (8-26) Creatinine 1.8 mg/dL (0.7-1.3) Estimated GFR (Cockcroft-Gault) 43.3 Glucose Level 91 mg/dL (70-99) Calcium Level 8.4 mg/dL (8.5-10.1) Iron Level 40 ug/dL (65-175) Total Iron Binding Capacity 99 ug/dL (250-450) Iron Saturation 40 % (15-34) Ferritin 367 ng/mL (26-388) Lactate Dehydrogenase 1473 U/L (85-227) Vitamin B12 Level 977 pg/mL (247-911) Test 09/09/20 20:31 09/10/20 03:30 09/10/20 07:42 Glucose (Fingerstick) 95 mg/dL (70-99) 95 mg/dL (70-99) White Blood Count 31.0 x10^3/uL (4.0-11.0) Red Blood Count 3.41 x10^6/uL (4.30-5.70) Hemoglobin 9.4 g/dL (13.0-17.5) Hematocrit 30.9 % (39.0-53.0) Mean Corpuscular Volume 91 fL (79-100) Mean Corpuscular Hemoglobin 28 pg (25-35) Mean Corpuscular Hemoglobin Concent 30 g/dL (31-37) Red Cell Distribution Width 25.2 % (11.5-14.5) Platelet Count 426 x10^3/uL (140-400) Neutrophils (%) (Auto) 85 % (31-73) Lymphocytes (%) (Auto) 6 % (24-48) Monocytes (%) (Auto) 3 % (0-9) Eosinophils (%) (Auto) 2 % (0-3) Basophils (%) (Auto) 5 % (0-3) Neutrophils # (Auto) 26.3 x10^3/uL (1.8-7.7) Lymphocytes # (Auto) 1.8 x10^3/uL (1.0-4.8) Monocytes # (Auto) 0.9 x10^3/uL (0.0-1.1) Eosinophils # (Auto) 0.5 x10^3/uL (0.0-0.7) Basophils # (Auto) 1.6 x10^3/uL (0.0-0.2) Prothrombin Time 27.3 SEC (11.7-14.0) Prothromb Time International Ratio 2.5 (0.8-1.1) Sodium Level 146 mmol/L (136-145) Potassium Level 3.7 mmol/L (3.5-5.1) Chloride Level 110 mmol/L (98-107) Carbon Dioxide Level 22 mmol/L (21-32) Anion Gap 14 (6-14) Blood Urea Nitrogen 48 mg/dL (8-26) Creatinine 1.9 mg/dL (0.7-1.3) Estimated GFR (Cockcroft-Gault) 40.7 Glucose Level 77 mg/dL (70-99) Calcium Level 8.4 mg/dL (8.5-10.1) Laboratory Tests Test 09/09/20 17:31 09/09/20 20:31 09/10/20 03:30 09/10/20 07:42 Glucose (Fingerstick) 74 mg/dL (70-99) 95 mg/dL (70-99) 95 mg/dL (70-99) White Blood Count 31.0 x10^3/uL (4.0-11.0) Red Blood Count 3.41 x10^6/uL (4.30-5.70) Hemoglobin 9.4 g/dL (13.0-17.5) Hematocrit 30.9 % (39.0-53.0) Mean Corpuscular Volume 91 fL (79-100) Mean Corpuscular Hemoglobin 28 pg (25-35) Mean Corpuscular Hemoglobin Concent 30 g/dL (31-37) Red Cell Distribution Width 25.2 % (11.5-14.5) Platelet Count 426 x10^3/uL (140-400) Neutrophils (%) (Auto) 85 % (31-73) Lymphocytes (%) (Auto) 6 % (24-48) Monocytes (%) (Auto) 3 % (0-9) Eosinophils (%) (Auto) 2 % (0-3) Basophils (%) (Auto) 5 % (0-3) Neutrophils # (Auto) 26.3 x10^3/uL (1.8-7.7) Lymphocytes # (Auto) 1.8 x10^3/uL (1.0-4.8) Monocytes # (Auto) 0.9 x10^3/uL (0.0-1.1) Eosinophils # (Auto) 0.5 x10^3/uL (0.0-0.7) Basophils # (Auto) 1.6 x10^3/uL (0.0-0.2) Prothrombin Time 27.3 SEC (11.7-14.0) Prothromb Time International Ratio 2.5 (0.8-1.1) Sodium Level 146 mmol/L (136-145) Potassium Level 3.7 mmol/L (3.5-5.1) Chloride Level 110 mmol/L (98-107) Carbon Dioxide Level 22 mmol/L (21-32) Anion Gap 14 (6-14) Blood Urea Nitrogen 48 mg/dL (8-26) Creatinine 1.9 mg/dL (0.7-1.3) Estimated GFR (Cockcroft-Gault) 40.7 Glucose Level 77 mg/dL (70-99) Calcium Level 8.4 mg/dL (8.5-10.1) Medications Active Scripts Medications Dose Route/Sig Max Daily Dose Days Date Category Dose Instructions Bumetanide 1 Mg Tablet 1 Mg PO BID 07/28/20 Reported [place]ore 5-325 Tablet (Acetaminophen/Hydrocodone Bitart) 1 Each Tablet 7.5 Mg PO PRN Q6HRS PRN 6 09/20/18 Rx LAST DOSE GIVEN: Colace (Docusate Sodium) 100 Mg Capsule 1 Cap PO TID 09/09/18 Reported Metamucil Powder (Psyllium Seed (with Sugar)) 575 Gm Powder 575 Gm PO DAILY 09/09/18 Reported Atorvastatin Calcium 40 Mg Tablet 1 Tab PO DAILY 08/12/18 Reported Metoprolol Tartrate 100 Mg Tablet 100 Mg PO DAILY 11/08/17 Reported Tamsulosin Hcl 0.4 Mg Cap.er.24h 0.4 Mg PO HS DAILY 11/08/17 Reported Vitamin C (Ascorbic Acid) 500 Mg Tablet 250 Mg PO DAILY 05/08/14 Reported Warfarin Sodium 5 Mg Tablet 1.5 Tab PO QWE 04/18/14 Reported Warfarin Sodium 5 Mg Tablet 1 Tab PO DAILY EXCEPT WED. 04/18/14 Reported Aspirin 81 Mg Tab.chew 81 Mg PO BID 08/22/13 Reported Lanoxin (Digoxin) 125 Mcg Tablet 125 Mcg PO DAILY 08/22/13 Reported Impression . IMPRESSION: 1. Dyspnea secondary to acute systolic and diastolic congestive heart failure--improving on room air 2. Abnormal chest x-ray. 3. 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 4. Cardiomyopathy. 5. 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 6. Obstructive sleep apnea-hypopnea syndrome, CPAP noncompliant. 7. Paroxysmal atrial fibrillation, on Coumadin. 8. Acute kidney injury/chronic kidney disease. 9. leukocytosis --worsening --ID following Plan . RECOMMENDATIONS: We will continue current support Titrate FiO2 to keep O2 saturation 92%, currently [place] room air ID consulted for worsening leukocytosis-- planned for CT of Chest/ABD/PLVS today CT chest shows Bilateral atelectasis, doubt that the cause of his leukocytosis is related to pneumonia Oncology planning for outpt bone marrow biopsy NEBS Follow cardiology recs----Echocardiogram 2019 ejection fraction of 40% Follow nephrology recs - monitor renal function ongoing education of importance of CPAP, pt. still declines and He understands the risks of not treating obstructive sleep apnea-hypopnea syndrome. Continue Coumadin. Keep INR between 2 and 3 DVT/GI PPX D/W BREN ONTIVEROS MD Sep 10, 2020 08:31
--- NOTE | 2020-09-10 08:37 | PDOC ---
Infectious Disease Note Subjective: Subjective Patient continues to feel weak Continues to have swelling of both the legs Denies fever, nausea, vomiting, diarrhea Cough and shortness of breath have improved and sons at bedside Vital Signs: Vital Signs Vital Signs Date Time Temp Pulse Resp B/P (MAP) Pulse Ox O2 Delivery O2 Flow Rate FiO2 09/10/20 08:15 95 Room Air 09/10/20 07:00 98.3 64 20 120/79 (93) 98.3 Physical Exam: PHYSICAL EXAM GENERAL: Pleasant, alert, awake male, sitting upright in chair in no acute distress. Answers only a few questions HEENT: Normocephalic, atraumatic. Oral mucosa moist. NECK: Supple. LUNGS: Mild crackles. HEART: S1, S2. Pacemaker without signs of complication. ABDOMEN: Soft, nontender, and nondistended. EXTREMITIES: Swollen. No cyanosis. DERMATOLOGIC: Warm, dry. No generalized rash. NEUROLOGIC: Alert, awake, answers questions appropriately. PSYCHIATRIC: Calm and cooperative. Medications: Inpatient Meds: Medications reviewed. Labs: Lab Laboratory Tests Test 09/09/20 17:31 09/09/20 20:31 09/10/20 03:30 09/10/20 07:42 Glucose (Fingerstick) 74 mg/dL (70-99) 95 mg/dL (70-99) 95 mg/dL (70-99) White Blood Count 31.0 x10^3/uL (4.0-11.0) Red Blood Count 3.41 x10^6/uL (4.30-5.70) Hemoglobin 9.4 g/dL (13.0-17.5) Hematocrit 30.9 % (39.0-53.0) Mean Corpuscular Volume 91 fL (79-100) Mean Corpuscular Hemoglobin 28 pg (25-35) Mean Corpuscular Hemoglobin Concent 30 g/dL (31-37) Red Cell Distribution Width 25.2 % (11.5-14.5) Platelet Count 426 x10^3/uL (140-400) Neutrophils (%) (Auto) 85 % (31-73) Lymphocytes (%) (Auto) 6 % (24-48) Monocytes (%) (Auto) 3 % (0-9) Eosinophils (%) (Auto) 2 % (0-3) Basophils (%) (Auto) 5 % (0-3) Neutrophils # (Auto) 26.3 x10^3/uL (1.8-7.7) Lymphocytes # (Auto) 1.8 x10^3/uL (1.0-4.8) Monocytes # (Auto) 0.9 x10^3/uL (0.0-1.1) Eosinophils # (Auto) 0.5 x10^3/uL (0.0-0.7) Basophils # (Auto) 1.6 x10^3/uL (0.0-0.2) Prothrombin Time 27.3 SEC (11.7-14.0) Prothromb Time International Ratio 2.5 (0.8-1.1) Sodium Level 146 mmol/L (136-145) Potassium Level 3.7 mmol/L (3.5-5.1) Chloride Level 110 mmol/L (98-107) Carbon Dioxide Level 22 mmol/L (21-32) Anion Gap 14 (6-14) Blood Urea Nitrogen 48 mg/dL (8-26) Creatinine 1.9 mg/dL (0.7-1.3) Estimated GFR (Cockcroft-Gault) 40.7 Glucose Level 77 mg/dL (70-99) Calcium Level 8.4 mg/dL (8.5-10.1) Objective: Assessment: 1. Leukocytosis, questionable etiology, could be reactive, though has worsened here after admission from 27K. Previous white count was 14 K in July,has had wbc that has been within normal limits. 2. Acute on chronic heart failure. 3. Coronary artery disease. 4. Permanent atrial fibrillation. 5. Diabetes. 6. Dysphagia. 7. Anemia and thrombocytosis. 8. Generalized debility. 9. Constipation Plan: Plan of Care Continue Zosyn and Zyvox Oncology input noted, bone marrow biopsy scheduled as outpatient Obtain CT abdomen pelvis and chest without Monitor labs and cultures Trend WBC If patient has diarrhea check C. difficile Maintain aspiration precaution. Discussed at length with and son's at bedside ANDREA TIJERINA MD Sep 10, 2020 08:36
[2020-09-10] MEDS: ASPIRIN CHEWABLE 81 MG TABLET. PO SCH ×2 (08:44→20:41)
[2020-09-10] MEDS: LACTOBACILLUS RHAMNOSUS GG 1 CAPSULE. PO SCH ×2 (08:44→20:41)
[2020-09-10] MEDS: ASCORBIC ACID 500 MG TABLET PO SCH (08:44)
[2020-09-10] MEDS: DOCUSATE SODIUM 100 MG CAPSULE. PO SCH ×3 (08:44→20:41)
[2020-09-10] MEDS: ATORVASTATIN CALCIUM 40 MG TABLET. PO SCH (08:44)
[2020-09-10] MEDS: BUMETANIDE 1 MG/4 ML VIAL. IV SCH ×2 (08:45→14:03)
--- NOTE | 2020-09-10 09:01 | PDOC ---
PROGRESS NOTES Date of Service: DATE: 09/10/20 TIME: 09:01 Chief Complaint Chief Complaint impression Acute on chronic combined systolic and diastolic heart failure. We will diurese with intravenous Bumex. 2D echo in September 2019 showed LVEF 40%. Coronary artery disease: Patient has known chronic total occlusion of LAD with collaterals, presently stable and chest pain-free. Lexiscan nuclear stress test in March 2020 showed large inferior infarct without any significant ischemia. Continue current secondary prevention measures. Sick sinus syndrome s/p permanent pacemaker implantation with more recent generator change. Recent device check showed normal function. He denied any syncope or near syncope. Permanent atrial fibrillation: Telemetry showed demand pacing. Patient on warfarin for stroke prophylaxis. Check PT/INR. Hypertension - Controlled. Will back off on his BB. He is actually on 100mg metoprolol tartrate Hyperlipidemia - Continue statin Diabetes mellitus type 2 - diet controlled, A1c previously 5.8 Severe Protein calorie malnutrition - severe given his edema and albumin. 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 Normal LV systolic function. EF 60% plan FEN - Cardiac ADA diet PPX - warfarin CODE - FULL Dispo - inpatient CVC for CHF exacerbation History of Present Illness History of Present Illness Mr Rivero is an 89yo M w/ PMHx DM2, HLD, HTN, afib, SSS s/p PPM, CAD, chronic systolic CHF who presented to ED c/o for weakness and dyspnea. Also complains of dyspnea worsening over weeks, with a few days of noted LE edema is worse with cough in the morning that is productive of white sputum. he has cough at times, He denied any chest pain, palpitations or syncope. Given 1 dose iv lasix in ED 40mg, < 500 uop after, still feeling short of breath. He follows with Dr. Santoyo and has been recently changed to Bumex last month. Chest radiograph with interstitial edema. Labs with WBC 27.3, Hb 10.3, platelets 454, NA 145, K4.7, BUN 58, CR 2.1, INR 3.2 TSH 5.5, digoxin level 2.2, albumin 2.7, bilirubin 2.2, AST 56 ALT 12 alkaline phosphatase 138 NT proBNP 31,348 Admitted for further treatment. 09/04: Afebrile. WBC still high. Reasonably good urine output. A little confused Febrile. 1.3 L urine output. Still with very swollen lower extremities. No chest pain little bit short of breath. Not on O2 today. 09-06 Still with very swollen lower extremities. No chest pain little bit short of breath. Acute on chronic combined systolic and diastolic heart failure. We will diurese with intravenous Bumex. 2D echo in September 2019 showed LVEF 40%. Coronary artery disease: Patient has known chronic total occlusion of LAD with collaterals, presently stable and chest pain-free. Lexiscan nuclear stress test in March 2020 showed large inferior infarct without any significant ischemia. Continue current secondary prevention measures. Sick sinus syndrome s/p permanent pacemaker implantation with more recent generator change. Recent device check showed normal function. He denied any syncope or near syncope. Permanent atrial fibrillation: Telemetry showed demand pacing. Patient on warfarin for stroke prophylaxis. Check PT/INR. Hypertension - Controlled. Will back off on his BB. He is actually on 100mg metoprolol tartrate Hyperlipidemia - Continue statin Diabetes mellitus type 2 - diet controlled, A1c previously 5.8 Severe Protein calorie malnutrition - severe given his edema and albumin. tician to see D/W RN 09/07 CR 2.2 LESS swollen lower extremities. No chest pain little bit short of breath. Acute on chronic combined systolic and diastolic heart failure. We will diurese with intravenous Bumex. 2D echo in September 2019 showed LVEF 40%. Coronary artery disease: Patient has known chronic total occlusion of LAD with collaterals, presently stable and chest pain-free. Lexiscan nuclear stress test in March 2020 showed large inferior infarct without any significant ischemia. Continue current secondary prevention measures. Sick sinus syndrome s/p permanent pacemaker implantation with more recent generator change. Recent device check showed normal function. He denied any syncope or near syncope. Permanent atrial fibrillation: Telemetry showed demand pacing. Patient on warfarin for stroke prophylaxis. Check PT/INR. Hypertension - Controlled. Will back off on his BB. He is actually on 100mg metoprolol tartrate Hyperlipidemia - Continue statin Diabetes mellitus type 2 - diet controlled, A1c previously 5.8 Severe Protein calorie malnutrition - severe given his edema and albumin. [employer] to see D/W RN 09/08 CR 2.0 wbc 30.3 CAD; catheterization 08/2018 with [employer] of LAD with collaterals, which is unchanged from previous cath in 2013. clinically stable, CP free. 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 Permanent AFIB; rate controlled with BB. on warfarin for stroke prevention. 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 No chest pain little bit short of breath. Acute on chronic combined systolic and diastolic heart failure. We will diurese with intravenous Bumex. 2D echo in September 2019 showed LVEF 40%. Coronary artery disease: Patient has known chronic total occlusion of LAD with collaterals, presently stable and chest pain-free. Lexiscan nuclear stress test in March 2020 showed large inferior infarct without any significant ischemia. Continue current secondary prevention measures. Sick sinus syndrome s/p permanent pacemaker implantation with more recent generator change. Recent device check showed normal function. He denied any syncope or near syncope. Permanent atrial fibrillation: Telemetry showed demand pacing. Patient on warfarin for stroke prophylaxis. Check PT/INR. Hypertension - Controlled. Will back off on his BB. He is actually on 100mg metoprolol tartrate Hyperlipidemia - Continue statin Diabetes mellitus type 2 - diet controlled, A1c previously 5.8 Severe Protein calorie malnutrition - severe given his edema and albumin. [employer] to see D/W RN 37 min pt exam, chart review, > 50% of time spent with exam, chart review, pt care coordination 09/09 CR 2.0 wbc 30.3 CAD; catheterization 08/2018 with [employer] TE[employer]ER of LAD with collaterals, which is unchanged from previous cath in 2013. clinically stable, CP free. 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 Permanent AFIB; rate controlled with BB. on warfarin for stroke prevention. 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 No chest pain little bit short of breath. Acute on chronic combined systolic and diastolic heart failure. We will diurese with intravenous Bumex. 2D echo in September 2019 showed LVEF 40%. Coronary artery disease: Patient has known chronic total occlusion of LAD with collaterals, presently stable and chest pain-free. Lexiscan nuclear stress test in March 2020 showed large inferior infarct without any significant ischemia. Continue current secondary prevention measures. Sick sinus syndrome s/p permanent pacemaker implantation with more recent generator change. Recent device check showed normal function. He denied any syncope or near syncope. Permanent atrial fibrillation: Telemetry showed demand pacing. Patient on warfarin for stroke prophylaxis. Check PT/INR. Hypertension - Controlled. Will back off on his BB. 100mg metoprolol tartrate Hyperlipidemia - Continue statin Diabetes mellitus type 2 - diet controlled, A1c previously 5.8 Severe Protein calorie malnutrition - severe given his edema and albumin. [employer] to see D/W RN Defer to pulmonology regarding management of acute hypoxic respiratory failure and antibiotics ONCOLOGY plan on seeing patient in follow-up as outpatient to reassess CBC and discussed results of BCR ABL FISH and JAK2 mutation testing ID CONSULT 36 min pt exam, chart review, > 50% of time spent with exam, chart review, pt care coordination Worsening interstitial changes throughout both lungs, with worsening perihilar consolidation. Findings may reflect progressive interstitial pulmonary edema or infection. CXR 09-15 long discussion with family, , 2 sons they are not sure he desires a BM BX , will cont to monitor CR 2.0 wbc 31 CAD; catheterization 08/2018 with [employer] TE[employer]ER of LAD with collaterals, which is unchanged from previous cath in 2013. clinically stable, CP free. 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 Permanent AFIB; rate controlled with BB. on warfarin for stroke prevention. 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 No chest pain little bit short of breath. Acute on chronic combined systolic and diastolic heart failure. We will diurese with intravenous Bumex. 2D echo in September 2019 showed LVEF 40%. Coronary artery disease: Patient has known chronic total occlusion of LAD with collaterals, presently stable and chest pain-free. Lexiscan nuclear stress test in March 2020 showed large inferior infarct without any significant ischemia. Continue current secondary prevention measures. Sick sinus syndrome s/p permanent pacemaker implantation with more recent generator change. Recent device check showed normal function. He denied any syncope or near syncope. Permanent atrial fibrillation: Telemetry showed demand pacing. Patient on warfarin for stroke prophylaxis. Check PT/INR. Hypertension - Controlled. Will back off on his BB. 100mg metoprolol tartrate Hyperlipidemia - Continue statin Diabetes mellitus type 2 - diet controlled, A1c previously 5.8 Severe Protein calorie malnutrition - severe given his edema and albumin. [employer] to see D/W RN Defer to pulmonology regarding management of acute hypoxic respiratory failure and antibiotics ONCOLOGY plan on seeing patient in follow-up as outpatient to reassess CBC and discussed results of BCR ABL FISH and JAK2 mutation testing ID CONSULT 38 min pt exam, chart review, > 50% of time spent with exam, chart review, pt care coordination Worsening interstitial changes throughout both lungs, with worsening perihilar consolidation. Findings may reflect progressive interstitial pulmonary edema or infection. CXR 6- Vitals Vitals Vital Signs Date Time Temp Pulse Resp B/P (MAP) Pulse Ox O2 Delivery O2 Flow Rate FiO2 09/10/20 08:15 95 Room Air 09/10/20 07:00 98.3 64 20 120/79 (93) 98.3 Physical Exam Physical Exam GENERAL: Pleasant, alert, awake male, sitting upright in chair in no acute distress. HEENT: Normocephalic, atraumatic. Oral mucosa moist. NECK: Supple. LUNGS: Mild crackles. HEART: S1, S2. Pacemaker without signs of complication. ABDOMEN: Soft, nontender, and nondistended. EXTREMITIES: Swollen. No cyanosis. DERMATOLOGIC: Warm, dry. No generalized rash. NEUROLOGIC: Alert, awake, answers questions appropriately. PSYCHIATRIC: Calm and cooperative. General: mild distress Heart: Regular rate Lungs: Crackles (bases ) Abdomen: Normal bowel sounds Extremities: No clubbing, No cyanosis, Other (2+ edema, no breakdown) Skin: No rashes, No breakdown, No significant lesion Labs LABS Laboratory Tests Test 09/09/20 17:31 09/09/20 20:31 09/10/20 03:30 09/10/20 07:42 Glucose (Fingerstick) 74 mg/dL (70-99) 95 mg/dL (70-99) 95 mg/dL (70-99) White Blood Count 31.0 x10^3/uL (4.0-11.0) Red Blood Count 3.41 x10^6/uL (4.30-5.70) Hemoglobin 9.4 g/dL (13.0-17.5) Hematocrit 30.9 % (39.0-53.0) Mean Corpuscular Volume 91 fL (79-100) Mean Corpuscular Hemoglobin 28 pg (25-35) Mean Corpuscular Hemoglobin Concent 30 g/dL (31-37) Red Cell Distribution Width 25.2 % (11.5-14.5) Platelet Count 426 x10^3/uL (140-400) Neutrophils (%) (Auto) 85 % (31-73) Lymphocytes (%) (Auto) 6 % (24-48) Monocytes (%) (Auto) 3 % (0-9) Eosinophils (%) (Auto) 2 % (0-3) Basophils (%) (Auto) 5 % (0-3) Neutrophils # (Auto) 26.3 x10^3/uL (1.8-7.7) Lymphocytes # (Auto) 1.8 x10^3/uL (1.0-4.8) Monocytes # (Auto) 0.9 x10^3/uL (0.0-1.1) Eosinophils # (Auto) 0.5 x10^3/uL (0.0-0.7) Basophils # (Auto) 1.6 x10^3/uL (0.0-0.2) Prothrombin Time 27.3 SEC (11.7-14.0) Prothromb Time International Ratio 2.5 (0.8-1.1) Sodium Level 146 mmol/L (136-145) Potassium Level 3.7 mmol/L (3.5-5.1) Chloride Level 110 mmol/L (98-107) Carbon Dioxide Level 22 mmol/L (21-32) Anion Gap 14 (6-14) Blood Urea Nitrogen 48 mg/dL (8-26) Creatinine 1.9 mg/dL (0.7-1.3) Estimated GFR (Cockcroft-Gault) 40.7 Glucose Level 77 mg/dL (70-99) Calcium Level 8.4 mg/dL (8.5-10.1) Assessment and Plan Assessmemt and Plan Problems Medical Problems: (1) CHF (congestive heart failure) Status: Acute Comment Review of Relevant I have reviewed the following items tiffany (where applicable) has been applied. Labs Laboratory Tests Test 09/08/20 09:40 09/08/20 12:03 09/08/20 17:26 09/08/20 18:15 SARS-CoV-2 RNA (ZIA) Negative (Negative) Glucose (Fingerstick) 86 mg/dL (70-99) 120 mg/dL (70-99) Urine Collection Type U cath Urine Color Yellow Urine Clarity Cloudy Urine pH 5.5 (<5.0-8.0) Urine Specific [place] 1.020 (1.000-1.030) Urine Protein Negative mg/dL (NEG-TRACE) Urine Glucose (UA) Negative mg/dL (NEG) Urine Ketones (Stick) Negative mg/dL (NEG) Urine Blood Negative (NEG) Urine Nitrite Negative (NEG) Urine Bilirubin Negative (NEG) Urine Urobilinogen Dipstick 1.0 mg/dL (0.2 mg/dL) Urine Leukocyte Esterase Negative (NEG) Urine RBC Rare /HPF (0-2) Urine WBC Rare /HPF (0-4) Urine Squamous Epithelial Cells Occ /LPF Urine Bacteria 0 /HPF (0-FEW) Urine Mucus Mod /LPF Urine Yeast Present /HPF Test 09/08/20 21:04 09/09/20 05:15 09/09/20 08:19 09/09/20 17:31 Glucose (Fingerstick) 125 mg/dL (70-99) 83 mg/dL (70-99) 74 mg/dL (70-99) White Blood Count 29.1 x10^3/uL (4.0-11.0) Red Blood Count 3.47 x10^6/uL (4.30-5.70) Hemoglobin 9.7 g/dL (13.0-17.5) Hematocrit 31.1 % (39.0-53.0) Mean Corpuscular Volume 91 fL (79-100) Mean Corpuscular Hemoglobin 28 pg (25-35) Mean Corpuscular Hemoglobin Concent 31 g/dL (31-37) Red Cell Distribution Width 25.4 % (11.5-14.5) Platelet Count 445 x10^3/uL (140-400) Neutrophils (%) (Auto) 84 % (31-73) Lymphocytes (%) (Auto) 6 % (24-48) Monocytes (%) (Auto) 3 % (0-9) Eosinophils (%) (Auto) 1 % (0-3) Basophils (%) (Auto) 6 % (0-3) Neutrophils # (Auto) 24.4 x10^3/uL (1.8-7.7) Lymphocytes # (Auto) 1.7 x10^3/uL (1.0-4.8) Monocytes # (Auto) 0.9 x10^3/uL (0.0-1.1) Eosinophils # (Auto) 0.3 x10^3/uL (0.0-0.7) Basophils # (Auto) 1.7 x10^3/uL (0.0-0.2) Absolute Reticulocyte Count 0.104 x10^6/uL (0.020-0.120) Percent Reticulocyte Count 3.0 % (0.5-2.3) Immature Reticulocyte Fraction 0.67 (0.20-0.60) Haptoglobin 28 mg/dL (38-329) Prothrombin Time 26.1 SEC (11.7-14.0) Prothromb Time International Ratio 2.4 (0.8-1.1) Sodium Level 146 mmol/L (136-145) Potassium Level 3.3 mmol/L (3.5-5.1) Chloride Level 110 mmol/L (98-107) Carbon Dioxide Level 25 mmol/L (21-32) Anion Gap 11 (6-14) Blood Urea Nitrogen 52 mg/dL (8-26) Creatinine 1.8 mg/dL (0.7-1.3) Estimated GFR (Cockcroft-Gault) 43.3 Glucose Level 91 mg/dL (70-99) Calcium Level 8.4 mg/dL (8.5-10.1) Iron Level 40 ug/dL (65-175) Total Iron Binding Capacity 99 ug/dL (250-450) Iron Saturation 40 % (15-34) Ferritin 367 ng/mL (26-388) Lactate Dehydrogenase 1473 U/L (85-227) Vitamin B12 Level 977 pg/mL (247-911) Test 09/09/20 20:31 09/10/20 03:30 09/10/20 07:42 Glucose (Fingerstick) 95 mg/dL (70-99) 95 mg/dL (70-99) White Blood Count 31.0 x10^3/uL (4.0-11.0) Red Blood Count 3.41 x10^6/uL (4.30-5.70) Hemoglobin 9.4 g/dL (13.0-17.5) Hematocrit 30.9 % (39.0-53.0) Mean Corpuscular Volume 91 fL (79-100) Mean Corpuscular Hemoglobin 28 pg (25-35) Mean Corpuscular Hemoglobin Concent 30 g/dL (31-37) Red Cell Distribution Width 25.2 % (11.5-14.5) Platelet Count 426 x10^3/uL (140-400) Neutrophils (%) (Auto) 85 % (31-73) Lymphocytes (%) (Auto) 6 % (24-48) Monocytes (%) (Auto) 3 % (0-9) Eosinophils (%) (Auto) 2 % (0-3) Basophils (%) (Auto) 5 % (0-3) Neutrophils # (Auto) 26.3 x10^3/uL (1.8-7.7) Lymphocytes # (Auto) 1.8 x10^3/uL (1.0-4.8) Monocytes # (Auto) 0.9 x10^3/uL (0.0-1.1) Eosinophils # (Auto) 0.5 x10^3/uL (0.0-0.7) Basophils # (Auto) 1.6 x10^3/uL (0.0-0.2) Prothrombin Time 27.3 SEC (11.7-14.0) Prothromb Time International Ratio 2.5 (0.8-1.1) Sodium Level 146 mmol/L (136-145) Potassium Level 3.7 mmol/L (3.5-5.1) Chloride Level 110 mmol/L (98-107) Carbon Dioxide Level 22 mmol/L (21-32) Anion Gap 14 (6-14) Blood Urea Nitrogen 48 mg/dL (8-26) Creatinine 1.9 mg/dL (0.7-1.3) Estimated GFR (Cockcroft-Gault) 40.7 Glucose Level 77 mg/dL (70-99) Calcium Level 8.4 mg/dL (8.5-10.1) Laboratory Tests Test 09/09/20 17:31 09/09/20 20:31 09/10/20 03:30 09/10/20 07:42 Glucose (Fingerstick) 74 mg/dL (70-99) 95 mg/dL (70-99) 95 mg/dL (70-99) White Blood Count 31.0 x10^3/uL (4.0-11.0) Red Blood Count 3.41 x10^6/uL (4.30-5.70) Hemoglobin 9.4 g/dL (13.0-17.5) Hematocrit 30.9 % (39.0-53.0) Mean Corpuscular Volume 91 fL (79-100) Mean Corpuscular Hemoglobin 28 pg (25-35) Mean Corpuscular Hemoglobin Concent 30 g/dL (31-37) Red Cell Distribution Width 25.2 % (11.5-14.5) Platelet Count 426 x10^3/uL (140-400) Neutrophils (%) (Auto) 85 % (31-73) Lymphocytes (%) (Auto) 6 % (24-48) Monocytes (%) (Auto) 3 % (0-9) Eosinophils (%) (Auto) 2 % (0-3) Basophils (%) (Auto) 5 % (0-3) Neutrophils # (Auto) 26.3 x10^3/uL (1.8-7.7) Lymphocytes # (Auto) 1.8 x10^3/uL (1.0-4.8) Monocytes # (Auto) 0.9 x10^3/uL (0.0-1.1) Eosinophils # (Auto) 0.5 x10^3/uL (0.0-0.7) Basophils # (Auto) 1.6 x10^3/uL (0.0-0.2) Prothrombin Time 27.3 SEC (11.7-14.0) Prothromb Time International Ratio 2.5 (0.8-1.1) Sodium Level 146 mmol/L (136-145) Potassium Level 3.7 mmol/L (3.5-5.1) Chloride Level 110 mmol/L (98-107) Carbon Dioxide Level 22 mmol/L (21-32) Anion Gap 14 (6-14) Blood Urea Nitrogen 48 mg/dL (8-26) Creatinine 1.9 mg/dL (0.7-1.3) Estimated GFR (Cockcroft-Gault) 40.7 Glucose Level 77 mg/dL (70-99) Calcium Level 8.4 mg/dL (8.5-10.1) Microbiology 09/03/20 Blood Culture - Final, Complete NO GROWTH AFTER 5 DAYS Medications Current Medications Furosemide (Lasix) 40 mg 1X ONCE IVP Last administered on 09/03/20at 21:07; Start 09/03/20 at 21:00; Stop 09/03/20 at 21:01; Status DC Piperacillin Sod/ Tazobactam Sod 3.375 gm/Sodium Chloride 50 ml @ 100 mls/hr 1X ONCE IV Last administered on 09/03/20at 21:08; Start 09/03/20 at 21:00; Stop 09/03/20 at 21:29; Status DC Ondansetron HCl (Zofran) 4 mg PRN Q8HRS PRN IV NAUSEA/VOMITING; Start 09/03/20 at 21:00; Stop 09/04/20 at 20:59; Status DC Morphine Sulfate (Morphine Sulfate) 2 mg PRN Q2HR PRN IV PAIN; Start 09/03/20 at 21:00; Stop 09/04/20 at 20:59; Status DC Acetaminophen (Tylenol) 650 mg PRN Q4HRS PRN PO FEVER > 100.3'F; Start 09/03/20 at 21:00; Stop 09/04/20 at 20:59; Status DC Ascorbic Acid (Vitamin C) 250 mg DAILY PO Last administered on 09/10/20 08:44; Start 09/04/20 at 09:00 Aspirin (Aspirin Chewable) 81 mg BID PO Last administered on 09/10/20at 08:44; Start 09/04/20 at 09:00 Atorvastatin Calcium (Lipitor) 40 mg DAILY PO Last administered on 09/10/20at 08:44; Start 09/04/20 at 09:00 Bumetanide (Bumex) 1 mg BID92 PO ; Start 09/04/20 at 09:00; Stop 09/04/20 at 07:53; Status DC Digoxin (Lanoxin) 125 mcg DAILY PO ; Start 09/04/20 at 09:00; Stop 09/04/20 at 07:47; Status DC Docusate Sodium (Colace) 100 mg TID PO Last administered on 09/10/20 08:44; Start 09/04/20 at 09:00 Acetaminophen/ Hydrocodone Bitart (Lortab 5/325) 1 tab PRN Q6HRS PRN PO PAIN Last administered on 09/09/20at 03:13; Start 09/03/20 at 22:15 Metoprolol Tartrate (Lopressor) 100 mg DAILY PO ; Start 09/04/20 at 09:00; Stop 09/04/20 at 07:29; Status DC Warfarin Sodium (Coumadin Per Pharmacy) 1 each PRN DAILY PRN MC SEE COMMENTS Last administered on 09/09/20at 08:51; Start 09/03/20 at 22:15 Piperacillin Sod/ Tazobactam Sod (Zosyn Per Pharmacy) 1 each PRN DAILY PRN MC SEE COMMENTS; Start 09/03/20 at 22:15 Albuterol/ Ipratropium (Duoneb) 3 ml RTQID NEB Last administered on 09/10/20at 08:15; Start 09/04/20 at 08:00 Prednisone (Prednisone) 40 mg 1X ONCE PO Last administered on 09/03/20at 22:41; Start 09/03/20 at 22:15; Stop 09/03/20 at 22:21; Status DC Insulin Human Lispro (HumaLOG) 0-7 UNITS TIDWMEALS SQ Last administered on 09/04/20at 12:32; Start 09/04/20 at 08:00 Dextrose (Dextrose 50%-Water Syringe) 12.5 gm PRN Q15MIN PRN IV SEE COMMENTS; Start 09/03/20 at 22:15 Piperacillin Sod/ Tazobactam Sod 3.375 gm/Sodium Chloride 50 ml @ 100 mls/hr Q6HRS IV Last administered on 09/10/20 05:09; Start 09/04/20 at 06:00 Warfarin Sodium (Coumadin - No Dose Today) 1 each 1X WARF ONCE MC Last administered on 09/04/20at 16:00; Start 09/04/20 at 16:00; Stop 09/04/20 at 16:01; Status DC Bumetanide (Bumex) 2.5 mg BID92 IV Last administered on 09/04/20 15:23; Start 09/04/20 at 09:00; Stop 09/05/20 at 07:46; Status DC Lactobacillus Rhamnosus (Culturelle) 1 cap BID PO Last administered on 09/10/20 08:44; Start 09/04/20 at 21:00 Tamsulosin HCl (Flomax) 0.4 mg QHS PO Last administered on 09/09/20 21:24; Start 09/05/20 at 21:00 Bumetanide (Bumex) 1 mg BID92 IV Last administered on 09/10/20at 08:45; Start 09/05/20 at 09:00 Potassium Bicarbonate (Potassium Effervescent Tablet) 40 meq 1X ONCE PO Last administered on 09/05/20at 09:06; Start 09/05/20 at 08:00; Stop 09/05/20 at 08:01; Status DC Warfarin Sodium (Coumadin - No Dose Today) 1 each 1X WARF ONCE MC Last administered on 09/05/20at 15:58; Start 09/05/20 at 16:00; Stop 09/05/20 at 16:01; Status DC Warfarin Sodium (Coumadin - No Dose Today) 1 each 1X WARF ONCE MC Last administered on 09/06/20at 16:00; Start 09/06/20 at 16:00; Stop 09/06/20 at 16:01; Status DC Warfarin Sodium (Coumadin - No Dose Today) 1 each 1X WARF ONCE MC ; Start 09/07/20 at 16:00; Stop 09/07/20 at 16:01; Status DC Bisacodyl (Dulcolax Supp) 10 mg 1X ONCE VT ; Start 09/07/20 at 13:00; Stop 09/07/20 at 18:32; Status DC Bisacodyl (Dulcolax Supp) 10 mg PRN DAILY PRN VT CONSTIPATION Last administered on 09/08/20at 08:29; Start 09/07/20 at 18:45 Warfarin Sodium (Coumadin - No Dose Today) 1 each 1X WARF ONCE MC ; Start 09/08/20 at 16:00; Stop 09/08/20 at 16:01; Status Cancel Warfarin Sodium (Coumadin) 4 mg 1X WARF ONCE PO Last administered on 09/08/20at 17:29; Start 09/08/20 at 16:00; Stop 09/08/20 at 16:01; Status DC Warfarin Sodium (Coumadin) 4 mg 1X WARF ONCE PO Last administered on 09/09/20at 16:53; Start 09/09/20 at 16:00; Stop 09/09/20 at 16:01; Status DC Potassium Chloride (Klor-Con) 20 meq 1X ONCE PO Last administered on 09/09/20at 09:32; Start 09/09/20 at 10:00; Stop 09/09/20 at 10:01; Status DC Linezolid (Zyvox) 600 mg BID PO Last administered on 09/09/20at 21:24; Start 09/09/20 at 12:00 Active Scripts Active [place] 5-325 Tablet (Acetaminophen/Hydrocodone Bitart) 1 Each Tablet 7.5 Mg PO PRN Q6HRS PRN 6 Days LAST DOSE GIVEN: Reported Warfarin Sodium 2 Mg Tablet 4 Mg PO Warfarin Sodium 2 Mg Tablet 6 Mg PO QMTH Bumetanide 1 Mg Tablet 1 Mg PO BID Colace (Docusate Sodium) 100 Mg Capsule 1 Cap PO TID Metamucil Powder (Psyllium Seed (with Sugar)) 575 Gm Powder 575 Gm PO DAILY Atorvastatin Calcium 40 Mg Tablet 1 Tab PO DAILY Metoprolol Tartrate 100 Mg Tablet 100 Mg PO DAILY Tamsulosin Hcl 0.4 Mg Cap.er.24h 0.4 Mg PO HS DAILY Vitamin C (Ascorbic Acid) 500 Mg Tablet 250 Mg PO DAILY Aspirin 81 Mg Tab.chew 81 Mg PO BID Lanoxin (Digoxin) 125 Mcg Tablet 125 Mcg PO DAILY Vitals/I & O Vital Sign - Last 24 Hours 09/09/20 09/09/20 09/09/20 09/09/20 11:24 11:30 15:00 19:00 Temp 99.3 98.6 97.9 99.3 98.6 97.9 Pulse 89 85 71 Resp 16 16 18 B/P (MAP) 128/57 (80) 114/51 (72) 124/51 (75) Pulse Ox 94 96 95 O2 Delivery Room Air Room Air Room Air Room Air 09/09/20 09/09/20 09/09/20 09/10/20 20:02 21:47 23:00 03:00 Temp 98.3 98.2 98.3 98.2 Pulse 79 73 Resp 16 16 B/P (MAP) 111/75 (87) 104/53 (70) Pulse Ox 96 96 O2 Delivery Room Air Room Air Room Air Room Air 09/10/20 09/10/20 07:00 08:15 Temp 98.3 98.3 Pulse 64 Resp 20 B/P (MAP) 120/79 (93) Pulse Ox 93 95 O2 Delivery Room Air Room Air Intake and Output 09/09/20 09/09/20 09/10/20 15:00 23:00 07:00 Intake Total 360 ml 330 ml 260 ml Balance 360 ml 330 ml 260 ml Justicifation of Admission Dx: Justifications for Admission: Justification of Admission Dx: Yes JAYLIN LAGUERRE MD Sep 10, 2020 09:01
[2020-09-10] MEDS: LINEZOLID 600 MG TABLET PO SCH ×2 (09:12→20:41)
--- NOTE | 2020-09-10 09:20 | NUR ---
Pharmacy Warfarin Dosing Note S:Pharmacy consulted to assist with anticoagulation therapy started with target INR: 2 -3 O:MAMTA MACIAS is a 89 year old M with Atrial Fibrillation LABS: Last INR: 2.5 Last HGB: 9.4 Last HCT: 30.9 Last PLT: 426 Last dose of 4 mg given on 09/09/20 at 1653 Previous Regimen: 6 mg Mon,Th; 4 mg all other days Drug Interaction Changes: New Interacting Drug Ongoing Drug Interactions: ZOSYN A:INR of 2.5 is within desired range. Target range for this patient is: 2 -3 P: Warfarin dose: 4 mg Today at 1600 Bridge Therapy: None Next INR due 09/11/20 Pharmacy anticoagulation service will continue to follow. REGINA WANG RPH, 09/10/20 [id number]
--- NOTE | 2020-09-10 09:26 | PDOC ---
DATE OF SERVICE DATE: 09/10/20 TIME: 09:21 SUBJECTIVE ROS Stable, On RA No complaints by patient, denies SOB OBJECTIVE Vital Signs Vital Signs Date Time Temp Pulse Resp B/P (MAP) Pulse Ox O2 Delivery O2 Flow Rate FiO2 09/10/20 08:15 95 Room Air 09/10/20 07:00 98.3 64 20 120/79 (93) 98.3 I & 0 Intake and Output 09/10/20 07:03 Intake Total 950 ml Balance 950 ml Intake Oral 850 ml IV Total 100 ml # Voids 7 # Bowel Movements 2 PHYSICAL EXAM Physical Exam Gen NAD , HEEN OM moist, hard of hearing Neck Supple Lungs decreased bases, Non labored CV S1`s2 Abd Soft, NT Neuro grossly Normal Skin No rash No CVA OR SP tenderness, No gaytan DIAGNOSIS/ASSESSMENT Assessment & Plan DION - suspect Cardiorenal , Cr elevated in July - admitted for CHF, prior labs in [facility] records with normal baseline Cr .stable renal function , not at his baseline yet, avoid overdiuresis monitor, supportive care, Strict I/O ( not recorded) ,Daily standing wt Avoid nephrotoxins and overdiuresis .. Diuretics per cardiology Acute on chronic systolic heart failure- appears compensated Echocardiogram 2019 ejection fraction of 40%. On Bumex at home . Card managing, currently on IV Bumex HyperNatremia - Mild, On diuretics- card managing Exacerbation of COPD. Atrial fibrillation. History of coronary artery disease. Diabetes mellitus Hypertension; controlled COMMENT/RELEVANT DATA Meds Current Medications Medications (Trade) Dose Ordered Sig/Rakesh Start Time Stop Time Status Last Admin Dose Admin Acetaminophen (Tylenol) 650 mg PRN Q4HRS PRN 09/03/20 21:00 09/04/20 20:59 DC Acetaminophen/ Hydrocodone Bitart (Lortab 5/325) 1 tab PRN Q6HRS PRN 09/03/20 22:15 09/09/20 03:13 1 TAB Albuterol/ Ipratropium (Duoneb) 3 ml RTQID 09/04/20 08:00 09/10/20 08:15 3 ML Ascorbic Acid (Vitamin C) 250 mg DAILY 09/04/20 09:00 09/10/20 08:44 250 MG Aspirin (Aspirin Chewable) 81 mg BID 09/04/20 09:00 09/10/20 08:44 81 MG Atorvastatin Calcium (Lipitor) 40 mg DAILY 09/04/20 09:00 09/10/20 08:44 40 MG Bisacodyl (Dulcolax Supp) 10 mg PRN DAILY PRN 09/07/20 18:45 09/08/20 08:29 10 MG Bumetanide (Bumex) 1 mg [id number] 09/05/20 09:00 09/10/20 08:45 1 MG Dextrose (Dextrose 50%-Water Syringe) 12.5 gm PRN Q15MIN PRN 09/03/20 22:15 Digoxin (Lanoxin) 125 mcg DAILY 09/04/20 09:00 09/04/20 07:47 DC Docusate Sodium (Colace) 100 mg TID 09/04/20 09:00 09/10/20 08:44 100 MG Furosemide (Lasix) 40 mg 1X ONCE 09/03/20 21:00 09/03/20 21:01 DC 09/03/20 21:07 40 MG Insulin Human Lispro (HumaLOG) 0-7 UNITS TIDWMEALS 09/04/20 08:00 09/04/20 12:32 4 UNITS Lactobacillus Rhamnosus (Culturelle) 1 cap BID 09/04/20 21:00 09/10/20 08:44 1 CAP Linezolid (Zyvox) 600 mg BID 09/09/20 12:00 09/10/20 09:12 600 MG Metoprolol Tartrate (Lopressor) 100 mg DAILY 09/04/20 09:00 09/04/20 07:29 DC Morphine Sulfate (Morphine Sulfate) 2 mg PRN Q2HR PRN 09/03/20 21:00 09/04/20 20:59 DC Ondansetron HCl (Zofran) 4 mg PRN Q8HRS PRN 09/03/20 21:00 09/04/20 20:59 DC Piperacillin Sod/ Tazobactam Sod (Zosyn Per Pharmacy) 1 each PRN DAILY PRN 09/03/20 22:15 Piperacillin Sod/ Tazobactam Sod 3.375 gm/Sodium Chloride 50 ml @ 100 mls/hr Q6HRS 09/04/20 06:00 09/10/20 05:09 100 MLS/HR Potassium Bicarbonate (Potassium Effervescent Tablet) 40 meq 1X ONCE 09/05/20 08:00 09/05/20 08:01 DC 09/05/20 09:06 40 MEQ Potassium Chloride (Klor-Con) 20 meq 1X ONCE 09/09/20 10:00 09/09/20 10:01 DC 09/09/20 09:32 20 MEQ Prednisone (Prednisone) 40 mg 1X ONCE 09/03/20 22:15 09/03/20 22:21 DC 09/03/20 22:41 40 MG Tamsulosin HCl (Flomax) 0.4 mg QHS 09/05/20 21:00 09/09/20 21:24 0.4 MG Warfarin Sodium (Coumadin - No Dose Today) 1 each 1X WARF ONCE 09/08/20 16:00 09/08/20 16:01 Cancel Warfarin Sodium (Coumadin Per Pharmacy) 1 each PRN DAILY PRN 09/03/20 22:15 09/10/20 09:20 1 EACH Warfarin Sodium (Coumadin) 4 mg 1X WARF ONCE 09/10/20 16:00 09/10/20 16:01 Lab Laboratory Tests Test 09/09/20 17:31 09/09/20 20:31 09/10/20 03:30 09/10/20 07:42 Glucose (Fingerstick) 74 mg/dL (70-99) 95 mg/dL (70-99) 95 mg/dL (70-99) White Blood Count 31.0 x10^3/uL (4.0-11.0) Red Blood Count 3.41 x10^6/uL (4.30-5.70) Hemoglobin 9.4 g/dL (13.0-17.5) Hematocrit 30.9 % (39.0-53.0) Mean Corpuscular Volume 91 fL (79-100) Mean Corpuscular Hemoglobin 28 pg (25-35) Mean Corpuscular Hemoglobin Concent 30 g/dL (31-37) Red Cell Distribution Width 25.2 % (11.5-14.5) Platelet Count 426 x10^3/uL (140-400) Neutrophils (%) (Auto) 85 % (31-73) Lymphocytes (%) (Auto) 6 % (24-48) Monocytes (%) (Auto) 3 % (0-9) Eosinophils (%) (Auto) 2 % (0-3) Basophils (%) (Auto) 5 % (0-3) Neutrophils # (Auto) 26.3 x10^3/uL (1.8-7.7) Lymphocytes # (Auto) 1.8 x10^3/uL (1.0-4.8) Monocytes # (Auto) 0.9 x10^3/uL (0.0-1.1) Eosinophils # (Auto) 0.5 x10^3/uL (0.0-0.7) Basophils # (Auto) 1.6 x10^3/uL (0.0-0.2) Prothrombin Time 27.3 SEC (11.7-14.0) Prothromb Time International Ratio 2.5 (0.8-1.1) Sodium Level 146 mmol/L (136-145) Potassium Level 3.7 mmol/L (3.5-5.1) Chloride Level 110 mmol/L (98-107) Carbon Dioxide Level 22 mmol/L (21-32) Anion Gap 14 (6-14) Blood Urea Nitrogen 48 mg/dL (8-26) Creatinine 1.9 mg/dL (0.7-1.3) Estimated GFR (Cockcroft-Gault) 40.7 Glucose Level 77 mg/dL (70-99) Calcium Level 8.4 mg/dL (8.5-10.1) Results All relevant outside records, renal labs, imaging studies, telemetry/EKG's were reviewed. Justicifation of Admission Dx: Justifications for Admission: Justification of Admission Dx: Yes DEXTER ULLOA MD Sep 10, 2020 09:26
[2020-09-10 11:00] VITALS: BP 106/45
[2020-09-10] MEDS: MEROPENEM 500 MG in IV NORMAL SALINE 50ML 50 ML IV SCH ×2 (14:02→21:54)
[2020-09-10 14:27] LABS: ALBUM 2.3 g/dL (2.9-4.4); ALPHA 1 0.3 g/dL (0.0-0.4); ALPHA 2 0.4 g/dL (0.4-1.0); BETA 0.5 g/dL (0.7-1.3); GAMMA 1.2 g/dL (0.4-1.8); PROTEIN TOTAL 4.7 g/dL (6.0-8.5)
[2020-09-10 15:00] VITALS: BP 118/57
--- NOTE | 2020-09-10 15:18 | NUR ---
SS following up with discharge planning. SS reviewed pt chart and discussed with pt RN. Pt is currently on room air. COVID19 negative. Pt white blood cell count worsened today. Pt now on IV Meropenem. Pt on IV Bumex. Pt had CT of abdomen today. Chest x-ray today. Neurology consulted. PT/OT recommended [facility] unit. Pt accepted at [facility], ; fax [phone]. SS will continue to follow for discharge planning.
[2020-09-10] MEDS ORDERED: WARFARIN 4 MG TABLET. PO ONE (16:00)
[2020-09-10 16:12] LABS: KAPPA FREE 305.8 mg/L (3.3-19.4); KAPPA LAMBDA RATIO 8.26 (0.26-1.65)
--- NOTE | 2020-09-10 17:00 | RAD ---
EXAM: CT CHEST, ABDOMEN, AND PELVIS WITHOUT CONTRAST INDICATION: Leukocytosis COMPARISON: CT chest 09/03/2020 TECHNIQUE: Helical CT imaging performed of the chest, abdomen and pelvis without the use of intraveno us contrast. Sagittal and coronal reformats were obtained. One or more of the following individualized dose reduction techniques were utilized for this examinat ion: 1. Automated exposure control 2. Adjustment of the mA and/or kV according to patient size 3. Use of iterative reconstruction technique. FINDINGS: CHEST: Thyroid gland and thoracic inlet: Unremarkable. Heart and great vessels: Moderate cardiomegaly is unchanged. There are pacemaker/AICD leads in the ri ght atrium and ventricle. There are coronary artery calcifications. The thoracic aorta is enlarged me asuring 4.5 cm in the ascending portion. Mild calcified aortic atherosclerosis. Mediastinum and kash: Multiple small mediastinal and hilar lymph nodes are unchanged. Lungs and pleura: There is mild emphysema. There are chronic posterior basilar groundglass and reticu lar changes. Mild atelectasis in the lower lobes. Increased, small bilateral pleural effusions. Chest wall and axillae: No axillary lymphadenopathy. Chest wall is unremarkable. Bones: No acute osseous abnormality in the chest. There is degenerative disc disease in the lower tho racic spine. There is an old right posterior rib deformity. ABDOMEN AND PELVIS: Liver: The liver is mildly enlarged measuring 19 cm in length. Gallbladder/Biliary Tree: Gallbladder is absent. Bile ducts are within normal limits. Pancreas: There is mild pancreatic atrophy. Spleen: The spleen is enlarged measuring 16 cm in length. Adrenal Glands: Normal. Kidneys/Ureters/Bladder: Kidneys are normal in size. There is no nephrolithiasis. Urinary bladder is unremarkable. Reproductive Organs: Prostate gland is normal. Stomach, small bowel, and colon: The stomach, small bowel, and colon are unremarkable. Evaluation of bowel is limited due to noncontrast exam and motion artifact. Vasculature: No abdominal aortic aneurysm. There is mild moderate calcified atherosclerosis. Lymph Nodes: No lymphadenopathy. Peritoneum and retroperitoneum: Trace ascites. Bones: No acute osseous abnormality in the abdomen and pelvis. Degenerative disc disease, greatest at L2-L3. IMPRESSION: 1. Enlarged ascending thoracic aorta measuring 4.5 cm. 2. Moderate cardiomegaly. 3. Increased, small pleural effusions and bibasilar atelectasis. Mild emphysema. Chronic appearing i nterstitial changes or scarring in the lung bases, unchanged. 4. Mild hepatosplenomegaly. 5. Trace ascites. Electronically signed by: Padmini Cason MD (09/10/2020 4:57 PM) [id number]
[2020-09-10] MEDS ORDERED: PHENYLEPH/MINERAL OIL/PETROLAT RECTAL OINTMENT TUBE. RC PRN (19:15)
[2020-09-10 19:40] VITALS: BP 104/59
[2020-09-10] MEDS: TAMSULOSIN 0.4 MG CAP.ER.24H. PO SCH (20:41)
[2020-09-10 23:15] VITALS: BP 113/55
[2020-09-11 03:35] VITALS: BP 112/68
[2020-09-11] MEDS: HYDROcodone/APAP 5/325MG 1 TAB TABLET PO PRN (03:57)
[2020-09-11] MEDS: MEROPENEM 500 MG in IV NORMAL SALINE 50ML 50 ML IV SCH ×3 (06:11→22:11)
--- NOTE | 2020-09-11 06:46 | PDOC ---
PULMONARY PROGRESS NOTES DATE: 09/11/20 TIME: 06:45 Subjective Pt. resting on room air no SOA or Cough Vitals Vital Signs Date Time Temp Pulse Resp B/P (MAP) Pulse Ox O2 Delivery O2 Flow Rate FiO2 09/11/20 04:27 Room Air 09/11/20 03:57 18 98 09/11/20 03:35 100.4 82 112/68 (83) 100.4 ROS: No Nausea, No Chest Pain, No Abdominal Pain, No Increase Cough General: Alert, No acute distress Lungs: Crackles (bases ) Cardiovascular: S1, S2 Abdomen: Soft, Non-tender Neuro Exam: Alert, Oriented Extremities: Other (edema) Skin: Warm, Dry Labs Laboratory Tests Test 09/09/20 08:19 09/09/20 17:31 09/09/20 20:31 09/10/20 03:30 Glucose (Fingerstick) 83 mg/dL (70-99) 74 mg/dL (70-99) 95 mg/dL (70-99) White Blood Count 31.0 x10^3/uL (4.0-11.0) Red Blood Count 3.41 x10^6/uL (4.30-5.70) Hemoglobin 9.4 g/dL (13.0-17.5) Hematocrit 30.9 % (39.0-53.0) Mean Corpuscular Volume 91 fL (79-100) Mean Corpuscular Hemoglobin 28 pg (25-35) Mean Corpuscular Hemoglobin Concent 30 g/dL (31-37) Red Cell Distribution Width 25.2 % (11.5-14.5) Platelet Count 426 x10^3/uL (140-400) Neutrophils (%) (Auto) 85 % (31-73) Lymphocytes (%) (Auto) 6 % (24-48) Monocytes (%) (Auto) 3 % (0-9) Eosinophils (%) (Auto) 2 % (0-3) Basophils (%) (Auto) 5 % (0-3) Neutrophils # (Auto) 26.3 x10^3/uL (1.8-7.7) Lymphocytes # (Auto) 1.8 x10^3/uL (1.0-4.8) Monocytes # (Auto) 0.9 x10^3/uL (0.0-1.1) Eosinophils # (Auto) 0.5 x10^3/uL (0.0-0.7) Basophils # (Auto) 1.6 x10^3/uL (0.0-0.2) Prothrombin Time 27.3 SEC (11.7-14.0) Prothromb Time International Ratio 2.5 (0.8-1.1) Sodium Level 146 mmol/L (136-145) Potassium Level 3.7 mmol/L (3.5-5.1) Chloride Level 110 mmol/L (98-107) Carbon Dioxide Level 22 mmol/L (21-32) Anion Gap 14 (6-14) Blood Urea Nitrogen 48 mg/dL (8-26) Creatinine 1.9 mg/dL (0.7-1.3) Estimated GFR (Cockcroft-Gault) 40.7 Glucose Level 77 mg/dL (70-99) Calcium Level 8.4 mg/dL (8.5-10.1) Test 09/10/20 07:42 09/10/20 11:21 09/10/20 16:54 09/10/20 20:32 Glucose (Fingerstick) 95 mg/dL (70-99) 142 mg/dL (70-99) 95 mg/dL (70-99) 92 mg/dL (70-99) Laboratory Tests Test 09/10/20 07:42 09/10/20 11:21 09/10/20 16:54 09/10/20 20:32 Glucose (Fingerstick) 95 mg/dL (70-99) 142 mg/dL (70-99) 95 mg/dL (70-99) 92 mg/dL (70-99) Medications Active Scripts Medications Dose Route/Sig Max Daily Dose Days Date Category Dose Instructions Bumetanide 1 Mg Tablet 1 Mg PO BID 07/28/20 Reported [place] 5-325 Tablet (Acetaminophen/Hydrocodone Bitart) 1 Each Tablet 7.5 Mg PO PRN Q6HRS PRN 6 09/20/18 Rx LAST DOSE GIVEN: Colace (Docusate Sodium) 100 Mg Capsule 1 Cap PO TID 09/09/18 Reported Metamucil Powder (Psyllium Seed (with Sugar)) 575 Gm Powder 575 Gm PO DAILY 09/09/18 Reported Atorvastatin Calcium 40 Mg Tablet 1 Tab PO DAILY 08/12/18 Reported Metoprolol Tartrate 100 Mg Tablet 100 Mg PO DAILY 11/08/17 Reported Tamsulosin Hcl 0.4 Mg Cap.er.24h 0.4 Mg PO HS DAILY 11/08/17 Reported Vitamin C (Ascorbic Acid) 500 Mg Tablet 250 Mg PO DAILY 05/08/14 Reported Warfarin Sodium 5 Mg Tablet 1.5 Tab PO QWE 04/18/14 Reported Warfarin Sodium 5 Mg Tablet 1 Tab PO DAILY EXCEPT WED. 04/18/14 Reported Aspirin 81 Mg Tab.chew 81 Mg PO BID 08/22/13 Reported Lanoxin (Digoxin) 125 Mcg Tablet 125 Mcg PO DAILY 08/22/13 Reported Comments 09/11 cxr reviewed 1. Left lower lobe infiltrate superimposed on chronic interstitial changes. 2. Stable small pleural effusions. 3. Cardiomegaly and left greater than right hilar enlargement likely due to pulmonary artery hypertension. ct of abd pelvis chest 1. Enlarged ascending thoracic aorta measuring 4.5 cm. 2. Moderate cardiomegaly. 3. Increased, small pleural effusions and bibasilar atelectasis. Mild em physema. Chronic appearing interstitial changes or scarring in the lung bases, unchanged. 4. Mild hepatosplenomegaly. 5. Trace ascites. Impression . IMPRESSION: 1. Dyspnea secondary to acute systolic and diastolic congestive heart failure--improving on room air 2. Abnormal chest x-ray. 3. 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 4. Cardiomyopathy. 5. 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 6. Obstructive sleep apnea-hypopnea syndrome, CPAP noncompliant. 7. Paroxysmal atrial fibrillation, on Coumadin. 8. Acute kidney injury/chronic kidney disease. 9. leukocytosis --worsening --ID following Plan . RECOMMENDATIONS: Titrate FiO2 to keep O2 saturation 90%, currently yon room air ID consulted for worsening leukocytosis-- CT of Chest/ABD/PLVS reviewed abx per id on Merrem ( 09/10) and Zyvox,was on zosyn, micafungin added doesnt want to use cpap the importance of christopher tx discussed He understands the risks of not treating obstructive sleep apnea-hypopnea syndrome. Increased, but small pleural effusions (not amenable to thoracentesis) and bibasilar atelectasis. Mild emphysema. Chronic appearing interstitial changes or scarring in the lung bases, unchanged. Oncology planning for outpt bone marrow biopsy BD Follow cardiology recs----Echocardiogram 2019 ejection fraction of 40% Follow nephrology recs - monitor renal function Continue Coumadin. Keep INR between 2 and 3 monitor hb DVT/GI PPX D/W IFEANYI BAKER MD Sep 11, 2020 06:46
[2020-09-11 07:00] VITALS: BP 116/49
[2020-09-11] MEDS: IPRATRPIUM/ALBUTEROL 0.5/2.5MG 3 ML NEBU. NEB SCH ×4 (07:26→19:02)
[2020-09-11 07:48] LABS: BASO # 1.9 x10^3/uL (0.0-0.2); BASO % 6 % (0-3); EOS # 0.4 x10^3/uL (0.0-0.7); EOS % 1 % (0-3); HEMATOCRIT 31.2 % (39.0-53.0); HEMOGLOBIN 9.5 g/dL (13.0-17.5); LYMPH # 1.5 x10^3/uL (1.0-4.8); LYMPH % 4 % (24-48); MEAN CORPUSCULAR HEMOGLOBIN 27 pg (25-35); MEAN CORPUSCULAR HGB CONC 31 g/dL (31-37); MEAN CORPUSCULAR VOLUME 90 fL (79-100); MONO # 0.9 x10^3/uL (0.0-1.1); MONO % 3 % (0-9); NEUT # 28.7 x10^3/uL (1.8-7.7); NEUT % 86 % (31-73); PLATELET COUNT 385 x10^3/uL (140-400); RED BLOOD COUNT 3.48 x10^6/uL (4.30-5.70); RED CELL DISTRIBUTION WIDTH 25.5 % (11.5-14.5); WHITE BLOOD COUNT 33.4 x10^3/uL (4.0-11.0)
--- NOTE | 2020-09-11 07:59 | PDOC ---
Infectious Disease Note Subjective: Subjective Patient had fever of 100.4 earlier this am Continues to have swelling of both the legs Complains of pain in the left knee and left lower extremity Denies nausea, vomiting, diarrhea Some cough and shortness of breath but has improved Vital Signs: Vital Signs Vital Signs Date Time Temp Pulse Resp B/P (MAP) Pulse Ox O2 Delivery O2 Flow Rate FiO2 09/11/20 04:27 Room Air 09/11/20 03:57 18 98 09/11/20 03:35 100.4 82 112/68 (83) 100.4 Physical Exam: PHYSICAL EXAM GENERAL: Pleasant, alert, awake male, sitting upright in chair in no acute distress. Answers only a few questions HEENT: Normocephalic, atraumatic. Oral mucosa moist. NECK: Supple. LUNGS: Mild crackles. HEART: S1, S2. Pacemaker without signs of complication. ABDOMEN: Soft, nontender, and nondistended. EXTREMITIES: No cyanosis bilateral lower extremity swelling present,? Calf tenderness present left lower extremity MSK changes suggestive of DJD, pain in left knee, no effusion DERMATOLOGIC: Warm, dry. No generalized rash. NEUROLOGIC: Alert, awake, answers questions appropriately. PSYCHIATRIC: Calm and cooperative. Medications: Inpatient Meds: Medications reviewed. Labs: Lab Laboratory Tests Test 09/10/20 11:21 09/10/20 16:54 09/10/20 20:32 09/11/20 07:20 Glucose (Fingerstick) 142 mg/dL (70-99) 95 mg/dL (70-99) 92 mg/dL (70-99) White Blood Count 33.4 x10^3/uL (4.0-11.0) Red Blood Count 3.48 x10^6/uL (4.30-5.70) Hemoglobin 9.5 g/dL (13.0-17.5) Hematocrit 31.2 % (39.0-53.0) Mean Corpuscular Volume 90 fL (79-100) Mean Corpuscular Hemoglobin 27 pg (25-35) Mean Corpuscular Hemoglobin Concent 31 g/dL (31-37) Red Cell Distribution Width 25.5 % (11.5-14.5) Platelet Count 385 x10^3/uL (140-400) Neutrophils (%) (Auto) 86 % (31-73) Lymphocytes (%) (Auto) 4 % (24-48) Monocytes (%) (Auto) 3 % (0-9) Eosinophils (%) (Auto) 1 % (0-3) Basophils (%) (Auto) 6 % (0-3) Neutrophils # (Auto) 28.7 x10^3/uL (1.8-7.7) Lymphocytes # (Auto) 1.5 x10^3/uL (1.0-4.8) Monocytes # (Auto) 0.9 x10^3/uL (0.0-1.1) Eosinophils # (Auto) 0.4 x10^3/uL (0.0-0.7) Basophils # (Auto) 1.9 x10^3/uL (0.0-0.2) Prothrombin Time 29.0 SEC (11.7-14.0) Prothromb Time International Ratio 2.7 (0.8-1.1) Micro BC neg CT C/A/P WO FINDINGS: CHEST: Thyroid gland and thoracic inlet: Unremarkable. Heart and great vessels: Moderate cardiomegaly is unchanged. There are pacemaker/AICD leads in the right atrium and ventricle. There are coronary artery calcifications. The thoracic aorta is enlarged measuring 4.5 cm in the ascending portion. Mild calcified aortic atherosclerosis. Mediastinum and kash: Multiple small mediastinal and hilar lymph nodes are unchanged. Lungs and pleura: There is mild emphysema. There are chronic posterior basilar groundglass and reticular changes. Mild atelectasis in the lower lobes. Increased, small bilateral pleural effusions. Chest wall and axillae: No axillary lymphadenopathy. Chest wall is unremarkable. Bones: No acute osseous abnormality in the chest. There is degenerative disc dis ease in the lower thoracic spine. There is an old right posterior rib deformity. ABDOMEN AND PELVIS: Liver: The liver is mildly enlarged measuring 19 cm in length. Gallbladder/Biliary Tree: Gallbladder is absent. Bile ducts are within normal limits. Pancreas: There is mild pancreatic atrophy. Spleen: The spleen is enlarged measuring 16 cm in length. Adrenal Glands: Normal. Kidneys/Ureters/Bladder: Kidneys are normal in size. There is no nephrolithiasis. Urinary bladder is unremarkable. Reproductive Organs: Prostate gland is normal. Stomach, small bowel, and colon: The stomach, small bowel, and colon are unremarkable. Evaluation of bowel is limited due to noncontrast exam and motion artifact. Vasculature: No abdominal aortic aneurysm. There is mild moderate calcified atherosclerosis. Lymph Nodes: No lymphadenopathy. Peritoneum and retroperitoneum: Trace ascites. Bones: No acute osseous abnormality in the abdomen and pelvis. Degenerative disc disease, greatest at L2-L3. IMPRESSION: 1. Enlarged ascending thoracic aorta measuring 4.5 cm. 2. Moderate cardiomegaly. 3. Increased, small pleural effusions and bibasilar atelectasis. Mild emphysema. Chronic appearing interstitial changes or scarring in the lung bases, unchanged. 4. Mild hepatosplenomegaly. 5. Trace ascites. Objective: Assessment: 1. Leukocytosis, questionable etiology, could be reactive, though has worsened here after admission from 27K. Previous white count was 14 K in July,has had wbc that has been within normal limits. 2. Acute on chronic heart failure. 3. Coronary artery disease. 4. Permanent atrial fibrillation. 5. Diabetes. 6. Dysphagia. 7. Anemia and thrombocytosis. 8. Generalized debility. 9. Constipation Plan: Plan of Care Repeat BC UA,UC Uric acid Ultrasound of left lower extremity rule out DVT Left knee x-ray Continue Merrem ( 09/10) and Zyvox,was on zosyn add micafungin F/U labs and cultures Oncology input noted, bone marrow biopsy scheduled as outpatient but DPOA wants to discuss this further with hematology CT abdomen pelvis and chest without due to renal insufficiency reviewed Monitor labs and cultures Trend WBC If patient has diarrhea check C. difficile Maintain aspiration precaution. Discussed at length with and son's at bedside yesterday ANDREA TIJERINA MD Sep 11, 2020 07:58
[2020-09-11] MEDS: INSULIN LISPRO 300 UNITS/3 ML VIAL. SQ SCH ×3 (08:00→17:00)
[2020-09-11 08:06] LABS: CALCIUM 8.5 mg/dL (8.5-10.1); CREATININE 1.9 mg/dL (0.7-1.3); GFR 40.7; POTASSIUM 3.3 mmol/L (3.5-5.1)
--- NOTE | 2020-09-11 08:09 | RAD ---
EXAM: Chest, single view. HISTORY: Pneumonia. COMPARISON: CT dated 09/10/2020. FINDINGS: A frontal view of the chest is obtained. There is left lower lobe infiltrate superimposed o n emphysema and chronic interstitial changes. There are small bilateral pleural effusions. There is a large bulla within the lingula. There is cardiomegaly. There is a cardiac pacemaker. There is right greater than left hilar prominence likely due to prominent central pulmonary arteries. This can be se en with pulmonary artery hypertension. IMPRESSION: 1. Left lower lobe infiltrate superimposed on chronic interstitial changes. 2. Stable small pleural effusions. 3. Cardiomegaly and left greater than right hilar enlargement likely due to pulmonary artery hyperten ruth. Electronically signed by: Sarah Mccabe MD (09/11/2020 8:06 AM) [facility]
[2020-09-11] MEDS ORDERED: FUROSEMIDE 20 MG/2 ML VIAL. IVP SCH (09:00)
[2020-09-11] MEDS: LINEZOLID 600 MG TABLET PO SCH ×2 (09:01→20:29)
[2020-09-11] MEDS: DOCUSATE SODIUM 100 MG CAPSULE. PO SCH ×3 (09:02→20:28)
[2020-09-11] MEDS: LACTOBACILLUS RHAMNOSUS GG 1 CAPSULE. PO SCH ×2 (09:02→20:29)
[2020-09-11] MEDS: ATORVASTATIN CALCIUM 40 MG TABLET. PO SCH (09:02)
[2020-09-11] MEDS: ASPIRIN CHEWABLE 81 MG TABLET. PO SCH ×2 (09:02→20:29)
[2020-09-11] MEDS: ASCORBIC ACID 500 MG TABLET PO SCH (09:02)
[2020-09-11] MEDS: BUMETANIDE 1 MG/4 ML VIAL. IV SCH ×2 (09:02→14:37)
--- NOTE | 2020-09-11 10:37 | PDOC ---
PROGRESS NOTES Date of Service: DATE: 09/11/20 TIME: 10:37 Chief Complaint Chief Complaint impression Acute on chronic combined systolic and diastolic heart failure. We will diurese with intravenous Bumex. 2D echo in September 2019 showed LVEF 40%. Coronary artery disease: Patient has known chronic total occlusion of LAD with collaterals, presently stable and chest pain-free. Lexiscan nuclear stress test in March 2020 showed large inferior infarct without any significant ischemia. Continue current secondary prevention measures. Sick sinus syndrome s/p permanent pacemaker implantation with more recent generator change. Recent device check showed normal function. He denied any syncope or near syncope. Permanent atrial fibrillation: Telemetry showed demand pacing. Patient on warfarin for stroke prophylaxis. Check PT/INR. Hypertension - Controlled. Will back off on his BB. He is actually on 100mg metoprolol tartrate Hyperlipidemia - Continue statin Diabetes mellitus type 2 - diet controlled, A1c previously 5.8 Severe Protein calorie malnutrition - severe given his edema and albumin. 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 Normal LV systolic function. EF 60% plan FEN - Cardiac ADA diet PPX - warfarin CODE - FULL Dispo - inpatient CVC for CHF exacerbation History of Present Illness History of Present Illness Mr Rivero is an 89yo M w/ PMHx DM2, HLD, HTN, afib, SSS s/p PPM, CAD, chronic systolic CHF who presented to ED c/o for weakness and dyspnea. Also complains of dyspnea worsening over weeks, with a few days of noted LE edema is worse with cough in the morning that is productive of white sputum. he has cough at times, He denied any chest pain, palpitations or syncope. Given 1 dose iv lasix in ED 40mg, < 500 uop after, still feeling short of breath. He follows with Dr. Santoyo and has been recently changed to Bumex last month. Chest radiograph with interstitial edema. Labs with WBC 27.3, Hb 10.3, platelets 454, NA 145, K4.7, BUN 58, CR 2.1, INR 3.2 TSH 5.5, digoxin level 2.2, albumin 2.7, bilirubin 2.2, AST 56 ALT 12 alkaline phosphatase 138 NT proBNP 31,348 Admitted for further treatment. 09/04: Afebrile. WBC still high. Reasonably good urine output. A little confused Febrile. 1.3 L urine output. Still with very swollen lower extremities. No chest pain little bit short of breath. Not on O2 today. 09-06 Still with very swollen lower extremities. No chest pain little bit short of breath. Acute on chronic combined systolic and diastolic heart failure. We will diurese with intravenous Bumex. 2D echo in September 2019 showed LVEF 40%. Coronary artery disease: Patient has known chronic total occlusion of LAD with collaterals, presently stable and chest pain-free. Lexiscan nuclear stress test in March 2020 showed large inferior infarct without any significant ischemia. Continue current secondary prevention measures. Sick sinus syndrome s/p permanent pacemaker implantation with more recent generator change. Recent device check showed normal function. He denied any syncope or near syncope. Permanent atrial fibrillation: Telemetry showed demand pacing. Patient on warfarin for stroke prophylaxis. Check PT/INR. Hypertension - Controlled. Will back off on his BB. He is actually on 100mg metoprolol tartrate Hyperlipidemia - Continue statin Diabetes mellitus type 2 - diet controlled, A1c previously 5.8 Severe Protein calorie malnutrition - severe given his edema and albumin. tician to see D/W RN 09/07 CR 2.2 LESS swollen lower extremities. No chest pain little bit short of breath. Acute on chronic combined systolic and diastolic heart failure. We will diurese with intravenous Bumex. 2D echo in September 2019 showed LVEF 40%. Coronary artery disease: Patient has known chronic total occlusion of LAD with collaterals, presently stable and chest pain-free. Lexiscan nuclear stress test in March 2020 showed large inferior infarct without any significant ischemia. Continue current secondary prevention measures. Sick sinus syndrome s/p permanent pacemaker implantation with more recent generator change. Recent device check showed normal function. He denied any syncope or near syncope. Permanent atrial fibrillation: Telemetry showed demand pacing. Patient on warfarin for stroke prophylaxis. Check PT/INR. Hypertension - Controlled. Will back off on his BB. He is actually on 100mg metoprolol tartrate Hyperlipidemia - Continue statin Diabetes mellitus type 2 - diet controlled, A1c previously 5.8 Severe Protein calorie malnutrition - severe given his edema and albumin. Tax Preparer to see D/W RN 09/08 CR 2.0 wbc 30.3 CAD; catheterization 08/2018 with [employer]ANT SU[employer] of LAD with collaterals, which is unchanged from previous cath in 2013. clinically stable, CP free. 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 Permanent AFIB; rate controlled with BB. on warfarin for stroke prevention. 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 No chest pain little bit short of breath. Acute on chronic combined systolic and diastolic heart failure. We will diurese with intravenous Bumex. 2D echo in September 2019 showed LVEF 40%. Coronary artery disease: Patient has known chronic total occlusion of LAD with collaterals, presently stable and chest pain-free. Lexiscan nuclear stress test in March 2020 showed large inferior infarct without any significant ischemia. Continue current secondary prevention measures. Sick sinus syndrome s/p permanent pacemaker implantation with more recent generator change. Recent device check showed normal function. He denied any syncope or near syncope. Permanent atrial fibrillation: Telemetry showed demand pacing. Patient on warfarin for stroke prophylaxis. Check PT/INR. Hypertension - Controlled. Will back off on his BB. He is actually on 100mg metoprolol tartrate Hyperlipidemia - Continue statin Diabetes mellitus type 2 - diet controlled, A1c previously 5.8 Severe Protein calorie malnutrition - severe given his edema and albumin. Tax Preparer to see D/W RN 37 min pt exam, chart review, > 50% of time spent with exam, chart review, pt care coordination 09/09 CR 2.0 wbc 30.3 CAD; catheterization 08/2018 with PLANT SUPER[employer] of LAD with collaterals, which is unchanged from previous cath in 2013. clinically stable, CP free. 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 Permanent AFIB; rate controlled with BB. on warfarin for stroke prevention. 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 No chest pain little bit short of breath. Acute on chronic combined systolic and diastolic heart failure. We will diurese with intravenous Bumex. 2D echo in September 2019 showed LVEF 40%. Coronary artery disease: Patient has known chronic total occlusion of LAD with collaterals, presently stable and chest pain-free. Lexiscan nuclear stress test in March 2020 showed large inferior infarct without any significant ischemia. Continue current secondary prevention measures. Sick sinus syndrome s/p permanent pacemaker implantation with more recent generator change. Recent device check showed normal function. He denied any syncope or near syncope. Permanent atrial fibrillation: Telemetry showed demand pacing. Patient on warfarin for stroke prophylaxis. Check PT/INR. Hypertension - Controlled. Will back off on his BB. 100mg metoprolol tartrate Hyperlipidemia - Continue statin Diabetes mellitus type 2 - diet controlled, A1c previously 5.8 Severe Protein calorie malnutrition - severe given his edema and albumin. Tax Preparer to see D/W RN Defer to pulmonology regarding management of acute hypoxic respiratory failure and antibiotics ONCOLOGY plan on seeing patient in follow-up as outpatient to reassess CBC and discussed results of BCR ABL FISH and JAK2 mutation testing ID CONSULT 36 min pt exam, chart review, > 50% of time spent with exam, chart review, pt care coordination Worsening interstitial changes throughout both lungs, with worsening perihilar consolidation. Findings may reflect progressive interstitial pulmonary edema or infection. CXR 09-15 long discussion with family, , 2 sons they are not sure he desires a BM BX , will cont to monitor CR 2.0 wbc 31 CAD; catheterization 08/2018 with PLANT SU[employer] of LAD with collaterals, which is unchanged from previous cath in 2013. clinically stable, CP free. 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 Permanent AFIB; rate controlled with BB. on warfarin for stroke prevention. 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 No chest pain little bit short of breath. Acute on chronic combined systolic and diastolic heart failure. We will diurese with intravenous Bumex. 2D echo in September 2019 showed LVEF 40%. Coronary artery disease: Patient has known chronic total occlusion of LAD with collaterals, presently stable and chest pain-free. Lexiscan nuclear stress test in March 2020 showed large inferior infarct without any significant ischemia. Continue current secondary prevention measures. Sick sinus syndrome s/p permanent pacemaker implantation with more recent generator change. Recent device check showed normal function. He denied any syncope or near syncope. Permanent atrial fibrillation: Telemetry showed demand pacing. Patient on warfarin for stroke prophylaxis. Check PT/INR. Hypertension - Controlled. Will back off on his BB. 100mg metoprolol tartrate Hyperlipidemia - Continue statin Diabetes mellitus type 2 - diet controlled, A1c previously 5.8 Severe Protein calorie malnutrition - severe given his edema and albumin. Tax Preparer to see D/W RN Defer to pulmonology regarding management of acute hypoxic respiratory failure and antibiotics ONCOLOGY plan on seeing patient in follow-up as outpatient to reassess CBC and discussed results of BCR ABL FISH and JAK2 mutation testing ID CONSULT 38 min pt exam, chart review, > 50% of time spent with exam, chart review, pt care coordination Worsening interstitial changes throughout both lungs, with worsening perihilar consolidation. Findings may reflect progressive interstitial pulmonary edema or infection. CXR 609/11 long discussion with family, , 2 sons they are not sure he desires a BM BX , will cont to monitor CR 2.0 wbc 31 CAD; catheterization 08/2018 with PLANT SUPER[employer] of LAD with collaterals, which is unchanged from previous cath in 2013. clinically stable, CP free. 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 Permanent AFIB; rate controlled with BB. on warfarin for stroke prevention. 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 No chest pain little bit short of breath. Acute on chronic combined systolic and diastolic heart failure. We will diurese with intravenous Bumex. 2D echo in September 2019 showed LVEF 40%. Coronary artery disease: Patient has known chronic total occlusion of LAD with collaterals, presently stable and chest pain-free. Lexiscan nuclear stress test in March 2020 showed large inferior infarct without any significant ischemia. Continue current secondary prevention measures. Sick sinus syndrome s/p permanent pacemaker implantation with more recent generator change. Recent device check showed normal function. He denied any s yncope or near syncope. Permanent atrial fibrillation: Telemetry showed demand pacing. Patient on warfarin for stroke prophylaxis. Check PT/INR. Hypertension - Controlled. Will back off on his BB. 100mg metoprolol tartrate Hyperlipidemia - Continue statin Diabetes mellitus type 2 - diet controlled, A1c previously 5.8 Severe Protein calorie malnutrition - severe given his edema and albumin. Tax Preparer to see D/W RN Defer to pulmonology regarding management of acute hypoxic respiratory failure and antibiotics ONCOLOGY plan on seeing patient in follow-up as outpatient to reassess CBC and discussed results of BCR ABL FISH and JAK2 mutation testing ID CONSULT 36 min pt exam, chart review, > 50% of time spent with exam, chart review, pt care coordination Worsening interstitial changes throughout both lungs, with worsening perihilar consolidation. Findings may reflect progressive interstitial pulmonary edema or infection. CXR 6- Continue Merrem ( 09/10) and Zyvox,was on zosyn add micafungin Vitals Vitals Vital Signs Date Time Temp Pulse Resp B/P (MAP) Pulse Ox O2 Delivery O2 Flow Rate FiO2 09/11/20 07:00 98.8 71 18 116/49 (71) 97 Room Air 98.8 Physical Exam Physical Exam GENERAL: Pleasant, alert, awake male, sitting upright in chair in no acute distress. Answers only a few questions HEENT: Normocephalic, atraumatic. Oral mucosa moist. NECK: Supple. LUNGS: Mild crackles. HEART: S1, S2. Pacemaker without signs of complication. ABDOMEN: Soft, nontender, and nondistended. EXTREMITIES: No cyanosis bilateral lower extremity swelling present,? Calf tenderness present left lower extremity MSK changes suggestive of DJD, pain in left knee, no effusion DERMATOLOGIC: Warm, dry. No generalized rash. NEUROLOGIC: Alert, awake, answers questions appropriately. PSYCHIATRIC: Calm and cooperative. General: mild distress Heart: Regular rate Lungs: Crackles (bases ) Abdomen: Normal bowel sounds Extremities: No clubbing, No cyanosis, Other (2+ edema, no breakdown) Skin: No rashes, No breakdown, No significant lesion Labs LABS EXAM: Chest, single view. HISTORY: Pneumonia. COMPARISON: CT dated 09/10/2020. FINDINGS: A frontal view of the chest is obtained. There is left lower lobe infiltrate superimposed on emphysema and chronic interstitial changes. There are small bilateral pleural effusions. There is a large bulla within the lingula. There is cardiomegaly. There is a cardiac pacemaker. There is right greater than left hilar prominence likely due to prominent central pulmonary arteries. This can be seen with pulmonary artery hypertension. IMPRESSION: 1. Left lower lobe infiltrate superimposed on chronic interstitial changes. 2. Stable small pleural effusions. 3. Cardiomegaly and left greater than right hilar enlargement likely due to pulmonary artery hypertension. Electronically signed by: Sarah Mercado MD (09/11/2020 8:06 AM) [facility] DICTATED and SIGNED BY: SARAH MERCADO MD DATE: 09/11/20 [id number] 0 Laboratory Tests Test 09/10/20 11:21 09/10/20 16:54 09/10/20 20:32 09/11/20 07:20 Glucose (Fingerstick) 142 mg/dL (70-99) 95 mg/dL (70-99) 92 mg/dL (70-99) White Blood Count 33.4 x10^3/uL (4.0-11.0) Red Blood Count 3.48 x10^6/uL (4.30-5.70) Hemoglobin 9.5 g/dL (13.0-17.5) Hematocrit 31.2 % (39.0-53.0) Mean Corpuscular Volume 90 fL (79-100) Mean Corpuscular Hemoglobin 27 pg (25-35) Mean Corpuscular Hemoglobin Concent 31 g/dL (31-37) Red Cell Distribution Width 25.5 % (11.5-14.5) Platelet Count 385 x10^3/uL (140-400) Neutrophils (%) (Auto) 86 % (31-73) Lymphocytes (%) (Auto) 4 % (24-48) Monocytes (%) (Auto) 3 % (0-9) Eosinophils (%) (Auto) 1 % (0-3) Basophils (%) (Auto) 6 % (0-3) Neutrophils # (Auto) 28.7 x10^3/uL (1.8-7.7) Lymphocytes # (Auto) 1.5 x10^3/uL (1.0-4.8) Monocytes # (Auto) 0.9 x10^3/uL (0.0-1.1) Eosinophils # (Auto) 0.4 x10^3/uL (0.0-0.7) Basophils # (Auto) 1.9 x10^3/uL (0.0-0.2) Prothrombin Time 29.0 SEC (11.7-14.0) Prothromb Time International Ratio 2.7 (0.8-1.1) Sodium Level 145 mmol/L (136-145) Potassium Level 3.3 mmol/L (3.5-5.1) Chloride Level 109 mmol/L (98-107) Carbon Dioxide Level 23 mmol/L (21-32) Anion Gap 13 (6-14) Blood Urea Nitrogen 46 mg/dL (8-26) Creatinine 1.9 mg/dL (0.7-1.3) Estimated GFR (Cockcroft-Gault) 40.7 Glucose Level 83 mg/dL (70-99) Uric Acid 13.8 mg/dL (3.5-7.2) Calcium Level 8.5 mg/dL (8.5-10.1) Test 09/11/20 08:24 Glucose (Fingerstick) 82 mg/dL (70-99) Assessment and Plan Assessmemt and Plan Problems Medical Problems: (1) CHF (congestive heart failure) Status: Acute Comment Review of Relevant I have reviewed the following items tiffany (where applicable) has been applied. Labs Laboratory Tests Test 09/09/20 17:31 09/09/20 20:31 09/10/20 03:30 09/10/20 07:42 Glucose (Fingerstick) 74 mg/dL (70-99) 95 mg/dL (70-99) 95 mg/dL (70-99) White Blood Count 31.0 x10^3/uL (4.0-11.0) Red Blood Count 3.41 x10^6/uL (4.30-5.70) Hemoglobin 9.4 g/dL (13.0-17.5) Hematocrit 30.9 % (39.0-53.0) Mean Corpuscular Volume 91 fL (79-100) Mean Corpuscular Hemoglobin 28 pg (25-35) Mean Corpuscular Hemoglobin Concent 30 g/dL (31-37) Red Cell Distribution Width 25.2 % (11.5-14.5) Platelet Count 426 x10^3/uL (140-400) Neutrophils (%) (Auto) 85 % (31-73) Lymphocytes (%) (Auto) 6 % (24-48) Monocytes (%) (Auto) 3 % (0-9) Eosinophils (%) (Auto) 2 % (0-3) Basophils (%) (Auto) 5 % (0-3) Neutrophils # (Auto) 26.3 x10^3/uL (1.8-7.7) Lymphocytes # (Auto) 1.8 x10^3/uL (1.0-4.8) Monocytes # (Auto) 0.9 x10^3/uL (0.0-1.1) Eosinophils # (Auto) 0.5 x10^3/uL (0.0-0.7) Basophils # (Auto) 1.6 x10^3/uL (0.0-0.2) Prothrombin Time 27.3 SEC (11.7-14.0) Prothromb Time International Ratio 2.5 (0.8-1.1) Sodium Level 146 mmol/L (136-145) Potassium Level 3.7 mmol/L (3.5-5.1) Chloride Level 110 mmol/L (98-107) Carbon Dioxide Level 22 mmol/L (21-32) Anion Gap 14 (6-14) Blood Urea Nitrogen 48 mg/dL (8-26) Creatinine 1.9 mg/dL (0.7-1.3) Estimated GFR (Cockcroft-Gault) 40.7 Glucose Level 77 mg/dL (70-99) Calcium Level 8.4 mg/dL (8.5-10.1) Test 09/10/20 11:21 09/10/20 16:54 09/10/20 20:32 09/11/20 07:20 Glucose (Fingerstick) 142 mg/dL (70-99) 95 mg/dL (70-99) 92 mg/dL (70-99) White Blood Count 33.4 x10^3/uL (4.0-11.0) Red Blood Count 3.48 x10^6/uL (4.30-5.70) Hemoglobin 9.5 g/dL (13.0-17.5) Hematocrit 31.2 % (39.0-53.0) Mean Corpuscular Volume 90 fL (79-100) Mean Corpuscular Hemoglobin 27 pg (25-35) Mean Corpuscular Hemoglobin Concent 31 g/dL (31-37) Red Cell Distribution Width 25.5 % (11.5-14.5) Platelet Count 385 x10^3/uL (140-400) Neutrophils (%) (Auto) 86 % (31-73) Lymphocytes (%) (Auto) 4 % (24-48) Monocytes (%) (Auto) 3 % (0-9) Eosinophils (%) (Auto) 1 % (0-3) Basophils (%) (Auto) 6 % (0-3) Neutrophils # (Auto) 28.7 x10^3/uL (1.8-7.7) Lymphocytes # (Auto) 1.5 x10^3/uL (1.0-4.8) Monocytes # (Auto) 0.9 x10^3/uL (0.0-1.1) Eosinophils # (Auto) 0.4 x10^3/uL (0.0-0.7) Basophils # (Auto) 1.9 x10^3/uL (0.0-0.2) Prothrombin Time 29.0 SEC (11.7-14.0) Prothromb Time International Ratio 2.7 (0.8-1.1) Sodium Level 145 mmol/L (136-145) Potassium Level 3.3 mmol/L (3.5-5.1) Chloride Level 109 mmol/L (98-107) Carbon Dioxide Level 23 mmol/L (21-32) Anion Gap 13 (6-14) Blood Urea Nitrogen 46 mg/dL (8-26) Creatinine 1.9 mg/dL (0.7-1.3) Estimated GFR (Cockcroft-Gault) 40.7 Glucose Level 83 mg/dL (70-99) Uric Acid 13.8 mg/dL (3.5-7.2) Calcium Level 8.5 mg/dL (8.5-10.1) Test 09/11/20 08:24 Glucose (Fingerstick) 82 mg/dL (70-99) Laboratory Tests Test 09/10/20 11:21 09/10/20 16:54 09/10/20 20:32 09/11/20 07:20 Glucose (Fingerstick) 142 mg/dL (70-99) 95 mg/dL (70-99) 92 mg/dL (70-99) White Blood Count 33.4 x10^3/uL (4.0-11.0) Red Blood Count 3.48 x10^6/uL (4.30-5.70) Hemoglobin 9.5 g/dL (13.0-17.5) Hematocrit 31.2 % (39.0-53.0) Mean Corpuscular Volume 90 fL (79-100) Mean Corpuscular Hemoglobin 27 pg (25-35) Mean Corpuscular Hemoglobin Concent 31 g/dL (31-37) Red Cell Distribution Width 25.5 % (11.5-14.5) Platelet Count 385 x10^3/uL (140-400) Neutrophils (%) (Auto) 86 % (31-73) Lymphocytes (%) (Auto) 4 % (24-48) Monocytes (%) (Auto) 3 % (0-9) Eosinophils (%) (Auto) 1 % (0-3) Basophils (%) (Auto) 6 % (0-3) Neutrophils # (Auto) 28.7 x10^3/uL (1.8-7.7) Lymphocytes # (Auto) 1.5 x10^3/uL (1.0-4.8) Monocytes # (Auto) 0.9 x10^3/uL (0.0-1.1) Eosinophils # (Auto) 0.4 x10^3/uL (0.0-0.7) Basophils # (Auto) 1.9 x10^3/uL (0.0-0.2) Prothrombin Time 29.0 SEC (11.7-14.0) Prothromb Time International Ratio 2.7 (0.8-1.1) Sodium Level 145 mmol/L (136-145) Potassium Level 3.3 mmol/L (3.5-5.1) Chloride Level 109 mmol/L (98-107) Carbon Dioxide Level 23 mmol/L (21-32) Anion Gap 13 (6-14) Blood Urea Nitrogen 46 mg/dL (8-26) Creatinine 1.9 mg/dL (0.7-1.3) Estimated GFR (Cockcroft-Gault) 40.7 Glucose Level 83 mg/dL (70-99) Uric Acid 13.8 mg/dL (3.5-7.2) Calcium Level 8.5 mg/dL (8.5-10.1) Test 09/11/20 08:24 Glucose (Fingerstick) 82 mg/dL (70-99) Microbiology 09/03/20 Blood Culture - Final, Complete NO GROWTH AFTER 5 DAYS Medications Current Medications Furosemide (Lasix) 40 mg 1X ONCE IVP Last administered on 09/03/20at 21:07; Start 09/03/20 at 21:00; Stop 09/03/20 at 21:01; Status DC Piperacillin Sod/ Tazobactam Sod 3.375 gm/Sodium Chloride 50 ml @ 100 mls/hr 1X ONCE IV Last administered on 09/03/20at 21:08; Start 09/03/20 at 21:00; Stop 09/03/20 at 21:29; Status DC Ondansetron HCl (Zofran) 4 mg PRN Q8HRS PRN IV NAUSEA/VOMITING; Start 09/03/20 at 21:00; Stop 09/04/20 at 20:59; Status DC Morphine Sulfate (Morphine Sulfate) 2 mg PRN Q2HR PRN IV PAIN; Start 09/03/20 at 21:00; Stop 09/04/20 at 20:59; Status DC Acetaminophen (Tylenol) 650 mg PRN Q4HRS PRN PO FEVER > 100.3'F; Start 09/03/20 at 21:00; Stop 09/04/20 at 20:59; Status DC Ascorbic Acid (Vitamin C) 250 mg DAILY PO Last administered on 09/11/20at 09:02; Start 09/04/20 at 09:00 Aspirin (Aspirin Chewable) 81 mg BID PO Last administered on 09/11/20at 09:02; Start 09/04/20 at 09:00 Atorvastatin Calcium (Lipitor) 40 mg DAILY PO Last administered on 09/11/20at 09:02; Start 09/04/20 at 09:00 Bumetanide (Bumex) 1 mg BID92 PO ; Start 09/04/20 at 09:00; Stop 09/04/20 at 07:53; Status DC Digoxin (Lanoxin) 125 mcg DAILY PO ; Start 09/04/20 at 09:00; Stop 09/04/20 at 07:47; Status DC Docusate Sodium (Colace) 100 mg TID PO Last administered on 09/11/20at 09:02; Start 09/04/20 at 09:00 Acetaminophen/ Hydrocodone Bitart (Lortab 5/325) 1 tab PRN Q6HRS PRN PO PAIN Last administered on 09/11/20at 03:57; Start 09/03/20 at 22:15 Metoprolol Tartrate (Lopressor) 100 mg DAILY PO ; Start 09/04/20 at 09:00; Stop 09/04/20 at 07:29; Status DC Warfarin Sodium (Coumadin Per Pharmacy) 1 each PRN DAILY PRN MC SEE COMMENTS Last administered on 09/10/20at 09:20; Start 09/03/20 at 22:15 Piperacillin Sod/ Tazobactam Sod (Zosyn Per Pharmacy) 1 each PRN DAILY PRN MC SEE COMMENTS; Start 09/03/20 at 22:15; Status Cancel Albuterol/ Ipratropium (Duoneb) 3 ml RTQID NEB Last administered on 09/10/20at 20:11; Start 09/04/20 at 08:00 Prednisone (Prednisone) 40 mg 1X ONCE PO Last administered on 09/03/20at 22:41; Start 09/03/20 at 22:15; Stop 09/03/20 at 22:21; Status DC Insulin Human Lispro (HumaLOG) 0-7 UNITS TIDWMEALS SQ Last administered on 09/04/20at 12:32; Start 09/04/20 at 08:00 Dextrose (Dextrose 50%-Water Syringe) 12.5 gm PRN Q15MIN PRN IV SEE COMMENTS; Start 09/03/20 at 22:15 Piperacillin Sod/ Tazobactam Sod 3.375 gm/Sodium Chloride 50 ml @ 100 mls/hr Q6HRS IV Last administered on 09/10/20at 05:09; Start 09/04/20 at 06:00; Stop 09/10/20 at 11:42; Status DC Warfarin Sodium (Coumadin - No Dose Today) 1 each 1X WARF ONCE MC Last administered on 09/04/20at 16:00; Start 09/04/20 at 16:00; Stop 09/04/20 at 16:01; Status DC Bumetanide (Bumex) 2.5 mg BID92 IV Last administered on 09/04/20 15:23; Start 09/04/20 at 09:00; Stop 09/05/20 at 07:46; Status DC Lactobacillus Rhamnosus (Culturelle) 1 cap BID PO Last administered on 09/11/20 09:02; Start 09/04/20 at 21:00 Tamsulosin HCl (Flomax) 0.4 mg QHS PO Last administered on 09/10/20 20:41; Start 09/05/20 at 21:00 Bumetanide (Bumex) 1 mg BID92 IV Last administered on 09/11/20 09:02; Start 09/05/20 at 09:00 Potassium Bicarbonate (Potassium Effervescent Tablet) 40 meq 1X ONCE PO Last administered on 5/30/21at 09:06; Start 09/05/20 at 08:00; Stop 09/05/20 at 08:01; Status DC Warfarin Sodium (Coumadin - No Dose Today) 1 each 1X WARF ONCE MC Last admini stered on 09/05/20at 15:58; Start 09/05/20 at 16:00; Stop 09/05/20 at 16:01; Status DC Warfarin Sodium (Coumadin - No Dose Today) 1 each 1X WARF ONCE MC Last administered on 09/06/20at 16:00; Start 09/06/20 at 16:00; Stop 09/06/20 at 16:01; Status DC Warfarin Sodium (Coumadin - No Dose Today) 1 each 1X WARF ONCE MC ; Start 09/07/20 at 16:00; Stop 09/07/20 at 16:01; Status DC Bisacodyl (Dulcolax Supp) 10 mg 1X ONCE [place] ; Start 09/07/20 at 13:00; Stop 09/07/20 at 18:32; Status DC Bisacodyl (Dulcolax Supp) 10 mg PRN DAILY PRN [place] CONSTIPATION Last administered on 09/08/20at 08:29; Start 09/07/20 at 18:45 Warfarin Sodium (Coumadin - No Dose Today) 1 each 1X WARF ONCE MC ; Start 09/08/20 at 16:00; Stop 09/08/20 at 16:01; Status Cancel Warfarin Sodium (Coumadin) 4 mg 1X WARF ONCE PO Last administered on 09/08/20at 17:29; Start 09/08/20 at 16:00; Stop 09/08/20 at 16:01; Status DC Warfarin Sodium (Coumadin) 4 mg 1X WARF ONCE PO Last administered on 09/09/20at 16:53; Start 09/09/20 at 16:00; Stop 09/09/20 at 16:01; Status DC Potassium Chloride (Klor-Con) 20 meq 1X ONCE PO Last administered on 09/09/20at 09:32; Start 09/09/20 at 10:00; Stop 09/09/20 at 10:01; Status DC Linezolid (Zyvox) 600 mg BID PO Last administered on 09/11/20at 09:01; Start 09/09/20 at 12:00 Warfarin Sodium (Coumadin) 4 mg 1X WARF ONCE PO Last administered on 09/10/20at 16:47; Start 09/10/20 at 16:00; Stop 09/10/20 at 16:01; Status DC Meropenem 500 mg/ Sodium Chloride 50 ml @ 100 mls/hr Q8HRS IV Last administered on 09/11/20at 06:11; Start 09/10/20 at 14:00 Furosemide (Lasix) 20 mg DAILY IVP ; Start 09/11/20 at 09:00; Status UNV Phenyleph/Shark Oil/Min Oil/Petrol (Preparation H) 1 mihaela PRN QID PRN RC RECTAL PAIN; Start 09/10/20 at 19:15 Micafungin Sodium 100 mg/Dextrose 100 ml @ 100 mls/hr Q24H IV ; Start 09/11/20 at 10:00 Active Scripts Active [place] 5-325 Tablet (Acetaminophen/Hydrocodone Bitart) 1 Each Tablet 7.5 Mg PO PRN Q6HRS PRN 6 Days LAST DOSE GIVEN: Reported Warfarin Sodium 2 Mg Tablet 4 Mg PO Warfarin Sodium 2 Mg Tablet 6 Mg PO QMTH Bumetanide 1 Mg Tablet 1 Mg PO BID Colace (Docusate Sodium) 100 Mg Capsule 1 Cap PO TID Metamucil Powder (Psyllium Seed (with Sugar)) 575 Gm Powder 575 Gm PO DAILY Atorvastatin Calcium 40 Mg Tablet 1 Tab PO DAILY Metoprolol Tartrate 100 Mg Tablet 100 Mg PO DAILY Tamsulosin Hcl 0.4 Mg Cap.er.24h 0.4 Mg PO HS DAILY Vitamin C (Ascorbic Acid) 500 Mg Tablet 250 Mg PO DAILY Aspirin 81 Mg Tab.chew 81 Mg PO BID Lanoxin (Digoxin) 125 Mcg Tablet 125 Mcg PO DAILY Vitals/I & O Vital Sign - Last 24 Hours 09/10/20 09/10/20 09/10/20 09/10/20 11:00 11:18 15:00 15:32 Temp 98.9 98.4 98.9 98.4 Pulse 80 78 Resp 18 20 B/P (MAP) 106/45 (65) 118/57 (77) Pulse Ox 98 95 97 95 O2 Delivery Room Air Room Air Room Air Room Air 09/10/20 09/10/20 09/10/20 09/11/20 19:40 20:11 23:15 03:35 Temp 99.9 99.9 100.4 99.9 99.9 100.4 Pulse 84 98 82 Resp 20 20 20 B/P (MAP) 104/59 (74) 113/55 (74) 112/68 (83) Pulse Ox 96 95 98 97 O2 Delivery Room Air Room Air Room Air Room Air 09/11/20 09/11/20 09/11/20 03:57 04:27 07:00 Temp 98.8 98.8 Pulse 71 Resp 18 18 B/P (MAP) 116/49 (71) Pulse Ox 98 97 O2 Delivery Room Air Room Air Room Air Intake and Output 09/10/20 09/10/20 09/11/20 15:00 23:00 07:00 Intake Total 600 ml 250 ml 400 ml Balance 600 ml 250 ml 400 ml Justicifation of Admission Dx: Justifications for Admission: Justification of Admission Dx: Yes JAYLIN LAGUERRE MD Sep 11, 2020 10:37
--- NOTE | 2020-09-11 10:54 | RAD ---
EXAM: Left knee, 4 views. HISTORY: Pain. COMPARISON: None. FINDINGS: 4 views of the left knee are obtained. There is medial and patellofemoral compartment joint space narrowing and subchondral scoliosis. There is tricompartmental spurring. There is slight genu varus. There is a small joint effusion. There are vascular calcifications. IMPRESSION: 1. 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 2. No acute osseous finding. Electronically signed by: Sarah Mccabe MD (09/11/2020 10:51 AM) [id number]
[2020-09-11 11:00] VITALS: BP 110/54
[2020-09-11] MEDS: MICAFUNGIN 100 MG in IV DEXTROSE 5% 100ML 100 ML IV SCH (11:21)
--- NOTE | 2020-09-11 11:32 | PDOC ---
PROGRESS NOTES Date of Service DATE: 09/11/20 TIME: 11:30 Subjective Subjective SEEN IN FOLLOW UP OF ARF/CKD? Objective Objective Vital Signs Date Time Temp Pulse Resp B/P (MAP) Pulse Ox O2 Delivery O2 Flow Rate FiO2 09/11/20 07:00 98.8 71 18 116/49 (71) 97 Room Air 98.8 Intake and Output 09/11/20 07:00 Intake Total 1250 ml Balance 1250 ml Intake Oral 1200 ml IV Total 50 ml # Voids 7 Physical Exam Heart: Regular rate, Normal S1, Normal S2, No murmurs, Gallops Extremities: No clubbing, No cyanosis, No edema, Normal pulses, No tenderness/swelling General: Alert, Oriented X3, Cooperative, No acute distress Lungs: Clear to auscultation, Normal air movement Psych/Mental Status: Mental status NL, Mood NL Diagnosis RENAL FAILURE: Acute (Acute tubular necrosis), Chronic (CKD stage III) Assessment Assessment Problems Medical Problems: (1) CHF (congestive heart failure) Status: Acute Plan Plan of Care LIKELY AT BASELINE. IVF OFF. CONT TO TREND LAB AND FLUID BALANCE Comment Review of Relevant I have reviewed the following items tiffany (where applicable) has been applied. Labs Laboratory Tests Test 09/09/20 17:31 09/09/20 20:31 09/10/20 03:30 09/10/20 07:42 Glucose (Fingerstick) 74 mg/dL (70-99) 95 mg/dL (70-99) 95 mg/dL (70-99) White Blood Count 31.0 x10^3/uL (4.0-11.0) Red Blood Count 3.41 x10^6/uL (4.30-5.70) Hemoglobin 9.4 g/dL (13.0-17.5) Hematocrit 30.9 % (39.0-53.0) Mean Corpuscular Volume 91 fL (79-100) Mean Corpuscular Hemoglobin 28 pg (25-35) Mean Corpuscular Hemoglobin Concent 30 g/dL (31-37) Red Cell Distribution Width 25.2 % (11.5-14.5) Platelet Count 426 x10^3/uL (140-400) Neutrophils (%) (Auto) 85 % (31-73) Lymphocytes (%) (Auto) 6 % (24-48) Monocytes (%) (Auto) 3 % (0-9) Eosinophils (%) (Auto) 2 % (0-3) Basophils (%) (Auto) 5 % (0-3) Neutrophils # (Auto) 26.3 x10^3/uL (1.8-7.7) Lymphocytes # (Auto) 1.8 x10^3/uL (1.0-4.8) Monocytes # (Auto) 0.9 x10^3/uL (0.0-1.1) Eosinophils # (Auto) 0.5 x10^3/uL (0.0-0.7) Basophils # (Auto) 1.6 x10^3/uL (0.0-0.2) Prothrombin Time 27.3 SEC (11.7-14.0) Prothromb Time International Ratio 2.5 (0.8-1.1) Sodium Level 146 mmol/L (136-145) Potassium Level 3.7 mmol/L (3.5-5.1) Chloride Level 110 mmol/L (98-107) Carbon Dioxide Level 22 mmol/L (21-32) Anion Gap 14 (6-14) Blood Urea Nitrogen 48 mg/dL (8-26) Creatinine 1.9 mg/dL (0.7-1.3) Estimated GFR (Cockcroft-Gault) 40.7 Glucose Level 77 mg/dL (70-99) Calcium Level 8.4 mg/dL (8.5-10.1) Test 09/10/20 11:21 09/10/20 16:54 09/10/20 20:32 09/11/20 07:20 Glucose (Fingerstick) 142 mg/dL (70-99) 95 mg/dL (70-99) 92 mg/dL (70-99) White Blood Count 33.4 x10^3/uL (4.0-11.0) Red Blood Count 3.48 x10^6/uL (4.30-5.70) Hemoglobin 9.5 g/dL (13.0-17.5) Hematocrit 31.2 % (39.0-53.0) Mean Corpuscular Volume 90 fL (79-100) Mean Corpuscular Hemoglobin 27 pg (25-35) Mean Corpuscular Hemoglobin Concent 31 g/dL (31-37) Red Cell Distribution Width 25.5 % (11.5-14.5) Platelet Count 385 x10^3/uL (140-400) Neutrophils (%) (Auto) 86 % (31-73) Lymphocytes (%) (Auto) 4 % (24-48) Monocytes (%) (Auto) 3 % (0-9) Eosinophils (%) (Auto) 1 % (0-3) Basophils (%) (Auto) 6 % (0-3) Neutrophils # (Auto) 28.7 x10^3/uL (1.8-7.7) Lymphocytes # (Auto) 1.5 x10^3/uL (1.0-4.8) Monocytes # (Auto) 0.9 x10^3/uL (0.0-1.1) Eosinophils # (Auto) 0.4 x10^3/uL (0.0-0.7) Basophils # (Auto) 1.9 x10^3/uL (0.0-0.2) Prothrombin Time 29.0 SEC (11.7-14.0) Prothromb Time International Ratio 2.7 (0.8-1.1) Sodium Level 145 mmol/L (136-145) Potassium Level 3.3 mmol/L (3.5-5.1) Chloride Level 109 mmol/L (98-107) Carbon Dioxide Level 23 mmol/L (21-32) Anion Gap 13 (6-14) Blood Urea Nitrogen 46 mg/dL (8-26) Creatinine 1.9 mg/dL (0.7-1.3) Estimated GFR (Cockcroft-Gault) 40.7 Glucose Level 83 mg/dL (70-99) Uric Acid 13.8 mg/dL (3.5-7.2) Calcium Level 8.5 mg/dL (8.5-10.1) Test 09/11/20 08:24 Glucose (Fingerstick) 82 mg/dL (70-99) Laboratory Tests Test 09/10/20 16:54 09/10/20 20:32 09/11/20 07:20 09/11/20 08:24 Glucose (Fingerstick) 95 mg/dL (70-99) 92 mg/dL (70-99) 82 mg/dL (70-99) White Blood Count 33.4 x10^3/uL (4.0-11.0) Red Blood Count 3.48 x10^6/uL (4.30-5.70) Hemoglobin 9.5 g/dL (13.0-17.5) Hematocrit 31.2 % (39.0-53.0) Mean Corpuscular Volume 90 fL (79-100) Mean Corpuscular Hemoglobin 27 pg (25-35) Mean Corpuscular Hemoglobin Concent 31 g/dL (31-37) Red Cell Distribution Width 25.5 % (11.5-14.5) Platelet Count 385 x10^3/uL (140-400) Neutrophils (%) (Auto) 86 % (31-73) Lymphocytes (%) (Auto) 4 % (24-48) Monocytes (%) (Auto) 3 % (0-9) Eosinophils (%) (Auto) 1 % (0-3) Basophils (%) (Auto) 6 % (0-3) Neutrophils # (Auto) 28.7 x10^3/uL (1.8-7.7) Lymphocytes # (Auto) 1.5 x10^3/uL (1.0-4.8) Monocytes # (Auto) 0.9 x10^3/uL (0.0-1.1) Eosinophils # (Auto) 0.4 x10^3/uL (0.0-0.7) Basophils # (Auto) 1.9 x10^3/uL (0.0-0.2) Prothrombin Time 29.0 SEC (11.7-14.0) Prothromb Time International Ratio 2.7 (0.8-1.1) Sodium Level 145 mmol/L (136-145) Potassium Level 3.3 mmol/L (3.5-5.1) Chloride Level 109 mmol/L (98-107) Carbon Dioxide Level 23 mmol/L (21-32) Anion Gap 13 (6-14) Blood Urea Nitrogen 46 mg/dL (8-26) Creatinine 1.9 mg/dL (0.7-1.3) Estimated GFR (Cockcroft-Gault) 40.7 Glucose Level 83 mg/dL (70-99) Uric Acid 13.8 mg/dL (3.5-7.2) Calcium Level 8.5 mg/dL (8.5-10.1) Microbiology 09/03/20 Blood Culture - Final, Complete NO GROWTH AFTER 5 DAYS Medications Current Medications Furosemide (Lasix) 40 mg 1X ONCE IVP Last administered on 09/03/20at 21:07; Start 09/03/20 at 21:00; Stop 09/03/20 at 21:01; Status DC Piperacillin Sod/ Tazobactam Sod 3.375 gm/Sodium Chloride 50 ml @ 100 mls/hr 1X ONCE IV Last administered on 09/03/20at 21:08; Start 09/03/20 at 21:00; Stop 09/03/20 at 21:29; Status DC Ondansetron HCl (Zofran) 4 mg PRN Q8HRS PRN IV NAUSEA/VOMITING; Start 09/03/20 at 21:00; Stop 09/04/20 at 20:59; Status DC Morphine Sulfate (Morphine Sulfate) 2 mg PRN Q2HR PRN IV PAIN; Start 09/03/20 at 21:00; Stop 09/04/20 at 20:59; Status DC Acetaminophen (Tylenol) 650 mg PRN Q4HRS PRN PO FEVER > 100.3'F; Start 09/03/20 at 21:00; Stop 09/04/20 at 20:59; Status DC Ascorbic Acid (Vitamin C) 250 mg DAILY PO Last administered on 09/11/20at 09:02; Start 09/04/20 at 09:00 Aspirin (Aspirin Chewable) 81 mg BID PO Last administered on 09/11/20at 09:02; Start 09/04/20 at 09:00 Atorvastatin Calcium (Lipitor) 40 mg DAILY PO Last administered on 09/11/20at 09:02; Start 09/04/20 at 09:00 Bumetanide (Bumex) 1 mg BID92 PO ; Start 09/04/20 at 09:00; Stop 09/04/20 at 07:53; Status DC Digoxin (Lanoxin) 125 mcg DAILY PO ; Start 09/04/20 at 09:00; Stop 09/04/20 at 07:47; Status DC Docusate Sodium (Colace) 100 mg TID PO Last administered on 09/11/20at 09:02; St art 09/04/20 at 09:00 Acetaminophen/ Hydrocodone Bitart ([place] 5/325) 1 tab PRN Q6HRS PRN PO PAIN Last administered on 09/11/20at 03:57; Start 09/03/20 at 22:15 Metoprolol Tartrate (Lopressor) 100 mg DAILY PO ; Start 09/04/20 at 09:00; Stop 09/04/20 at 07:29; Status DC Warfarin Sodium (Coumadin Per Pharmacy) 1 each PRN DAILY PRN MC SEE COMMENTS Last administered on 09/10/20at 09:20; Start 09/03/20 at 22:15 Piperacillin Sod/ Tazobactam Sod (Zosyn Per Pharmacy) 1 each PRN DAILY PRN MC SEE COMMENTS; Start 09/03/20 at 22:15; Status Cancel Albuterol/ Ipratropium (Duoneb) 3 ml RTQID NEB Last administered on 09/10/20at 20:11; Start 09/04/20 at 08:00 Prednisone (Prednisone) 40 mg 1X ONCE PO Last administered on 09/03/20at 22:41; Start 09/03/20 at 22:15; Stop 09/03/20 at 22:21; Status DC Insulin Human Lispro (HumaLOG) 0-7 UNITS TIDWMEALS SQ Last administered on 09/04/20at 12:32; Start 09/04/20 at 08:00 Dextrose (Dextrose 50%-Water Syringe) 12.5 gm PRN Q15MIN PRN IV SEE COMMENTS; Start 09/03/20 at 22:15 Piperacillin Sod/ Tazobactam Sod 3.375 gm/Sodium Chloride 50 ml @ 100 mls/hr Q6HRS IV Last administered on 09/10/20at 05:09; Start 09/04/20 at 06:00; Stop 09/10/20 at 11:42; Status DC Warfarin Sodium (Coumadin - No Dose Today) 1 each 1X WARF ONCE MC Last administered on 09/04/20at 16:00; Start 09/04/20 at 16:00; Stop 09/04/20 at 16:01; Status DC Bumetanide (Bumex) 2.5 mg BID92 IV Last administered on 09/04/20at 15:23; Start 09/04/20 at 09:00; Stop 09/05/20 at 07:46; Status DC Lactobacillus Rhamnosus (Culturelle) 1 cap BID PO Last administered on 09/11/20at 09:02; Start 09/04/20 at 21:00 Tamsulosin HCl (Flomax) 0.4 mg QHS PO Last administered on 09/10/20at 20:41; Start 09/05/20 at 21:00 Bumetanide (Bumex) 1 mg BID92 IV Last administered on 09/11/20 09:02; Start 09/05/20 at 09:00 Potassium Bicarbonate (Potassium Effervescent Tablet) 40 meq 1X ONCE PO Last administered on 09/05/20at 09:06; Start 09/05/20 at 08:00; Stop 09/05/20 at 08:01; Status DC Warfarin Sodium (Coumadin - No Dose Today) 1 each 1X WARF ONCE MC Last administered on 09/05/20at 15:58; Start 09/05/20 at 16:00; Stop 09/05/20 at 16:01; Status DC Warfarin Sodium (Coumadin - No Dose Today) 1 each 1X WARF ONCE MC Last administered on 09/06/20at 16:00; Start 09/06/20 at 16:00; Stop 09/06/20 at 16:01; Status DC Warfarin Sodium (Coumadin - No Dose Today) 1 each 1X WARF ONCE MC ; Start 09/07/20 at 16:00; Stop 09/07/20 at 16:01; Status DC Bisacodyl (Dulcolax Supp) 10 mg 1X ONCE [place] ; Start 09/07/20 at 13:00; Stop 09/07/20 at 18:32; Status DC Bisacodyl (Dulcolax Supp) 10 mg PRN DAILY PRN [place] CONSTIPATION Last administered on 09/08/20at 08:29; Start 09/07/20 at 18:45 Warfarin Sodium (Coumadin - No Dose Today) 1 each 1X WARF ONCE MC ; Start 09/08/20 at 16:00; Stop 09/08/20 at 16:01; Status Cancel Warfarin Sodium (Coumadin) 4 mg 1X WARF ONCE PO Last administered on 09/08/20at 17:29; Start 09/08/20 at 16:00; Stop 09/08/20 at 16:01; Status DC Warfarin Sodium (Coumadin) 4 mg 1X WARF ONCE PO Last administered on 09/09/20at 16:53; Start 09/09/20 at 16:00; Stop 09/09/20 at 16:01; Status DC Potassium Chloride (Klor-Con) 20 meq 1X ONCE PO Last administered on 09/09/20at 09:32; Start 09/09/20 at 10:00; Stop 09/09/20 at 10:01; Status DC Linezolid (Zyvox) 600 mg BID PO Last administered on 09/11/20at 09:01; Start 09/09/20 at 12:00 Warfarin Sodium (Coumadin) 4 mg 1X WARF ONCE PO Last administered on 09/10/20at 16:47; Start 09/10/20 at 16:00; Stop 09/10/20 at 16:01; Status DC Meropenem 500 mg/ Sodium Chloride 50 ml @ 100 mls/hr Q8HRS IV Last administered on 09/11/20at 06:11; Start 09/10/20 at 14:00 Furosemide (Lasix) 20 mg DAILY IVP ; Start 09/11/20 at 09:00; Status UNV Phenyleph/Shark Oil/Min Oil/Petrol (Preparation H) 1 mihaela PRN QID PRN RC RECTAL PAIN; Start 09/10/20 at 19:15 Micafungin Sodium 100 mg/Dextrose 100 ml @ 100 mls/hr Q24H IV Last administered on 09/11/20at 11:21; Start 09/11/20 at 10:00 Active Scripts Active [place] 5-325 Tablet (Acetaminophen/Hydrocodone Bitart) 1 Each Tablet 7.5 Mg PO PRN Q6HRS PRN 6 Days LAST DOSE GIVEN: Reported Warfarin Sodium 2 Mg Tablet 4 Mg PO Warfarin Sodium 2 Mg Tablet 6 Mg PO QMTH Bumetanide 1 Mg Tablet 1 Mg PO BID Colace (Docusate Sodium) 100 Mg Capsule 1 Cap PO TID Metamucil Powder (Psyllium Seed (with Sugar)) 575 Gm Powder 575 Gm PO DAILY Atorvastatin Calcium 40 Mg Tablet 1 Tab PO DAILY Metoprolol Tartrate 100 Mg Tablet 100 Mg PO DAILY Tamsulosin Hcl 0.4 Mg Cap.er.24h 0.4 Mg PO HS DAILY Vitamin C (Ascorbic Acid) 500 Mg Tablet 250 Mg PO DAILY Aspirin 81 Mg Tab.chew 81 Mg PO BID Lanoxin (Digoxin) 125 Mcg Tablet 125 Mcg PO DAILY Vitals/I & O Vital Sign - Last 24 Hours 09/10/20 09/10/20 09/10/20/4/21 15:00 15:32 19:40 20:11 Temp 98.4 99.9 98.4 99.9 Pulse 78 84 Resp 20 20 B/P (MAP) 118/57 (77) 104/59 (74) Pulse Ox 97 95 96 95 O2 Delivery Room Air Room Air Room Air Room Air 09/10/20 09/11/20 09/11/20 09/11/20 23:15 03:35 03:57 04:27 Temp 99.9 100.4 99.9 100.4 Pulse 98 82 Resp 20 20 18 B/P (MAP) 113/55 (74) 112/68 (83) Pulse Ox 98 97 98 O2 Delivery Room Air Room Air Room Air Room Air 09/11/20 07:00 Temp 98.8 98.8 Pulse 71 Resp 18 B/P (MAP) 116/49 (71) Pulse Ox 97 O2 Delivery Room Air Intake and Output 09/10/20 09/10/20 09/11/20 15:00 23:00 07:00 Intake Total 600 ml 250 ml 400 ml Balance 600 ml 250 ml 400 ml Justifications for Admission Other Justification IMMANUEL SORENSEN MD Sep 11, 2020 11:32
--- NOTE | 2020-09-11 11:39 | NUR ---
Pharmacy Warfarin Dosing Note S:Pharmacy consulted to assist with anticoagulation therapy started with target INR: 2 -3 O:MAMTA MACIAS is a 89 year old M with Atrial Fibrillation LABS: Last INR: 2.7 Last HGB: 9.4 Last HCT: 30.9 Last PLT: 426 Last dose of 4 mg given on 09/09/20 at 1653 Previous Regimen: 6 mg Mon,Th; 4 mg all other days Vitamin K given: Drug Interaction Changes: New Interacting Drug Ongoing Drug Interactions: ZOSYN A:INR of 2.7 is within desired range. Target range for this patient is: 2 -3 P: Warfarin dose: 4 mg Today at 1600 Bridge Therapy: None Next INR due IN AM Pharmacy anticoagulation service will continue to follow. YANETH GONZALEZ [facility], 09/11/20 [id number]
--- NOTE | 2020-09-11 11:54 | NUR ---
Patient refusing breathing treatments today. Pb Alarcon RN informed.
--- NOTE | 2020-09-11 13:46 | PDOC2 ---
NEUROLOGY CONSULT Date of Service DOS: DATE: 09/11/20 TIME: 13:35 Reason for Consult Reason for Consult: Metabolic encephalopathy and dementia Referring Physician Referring Physician: Dr. Tucker Source Source: Chart review History of Present Illness History of Present Illness The patient is an 89-year-old right-handed male admitted 8 days ago for weakness and dyspnea. It turns out he has pneumonia, heart failure, leukocytosis, questionable etiology, coronary artery disease, atrial fibrillation, anemia and thrombocytosis, on top of his diabetes and COPD. Patient has had and some mental decline over the last several months, worse in the past 2 weeks. There is no history of stroke, seizure, or head injury. Past Medical History Cardiovascular: AFIB, CAD, HTN, Hyperlipidemia Pulmonary: COPD, Pneumonia, Other (Sleep apnea) CENTRAL NERVOUS SYSTEM: TIA GI: Hemorrhoids Musculoskeletal: low back pain, Osteoarthritis ENT: Other (Cataracts) Renal/: UTI, Benign prostatic enlarg. Endocrine: Diabetes Past Surgical History Past Surgical History: Pacemaker, Cholecystectomy Family History Family History: Hypertension, Other (Alzheimer's) Social History Social History No alcohol or tobacco Current Medications Current Medications Current Medications Furosemide (Lasix) 40 mg 1X ONCE IVP Last administered on 09/03/20at 21:07; Start 09/03/20 at 21:00; Stop 09/03/20 at 21:01; Status DC Piperacillin Sod/ Tazobactam Sod 3.375 gm/Sodium Chloride 50 ml @ 100 mls/hr 1X ONCE IV Last administered on 09/03/20at 21:08; Start 09/03/20 at 21:00; Stop 09/03/20 at 21:29; Status DC Ondansetron HCl (Zofran) 4 mg PRN Q8HRS PRN IV NAUSEA/VOMITING; Start 09/03/20 at 21:00; Stop 09/04/20 at 20:59; Status DC Morphine Sulfate (Morphine Sulfate) 2 mg PRN Q2HR PRN IV PAIN; Start 09/03/20 at 21:00; Stop 09/04/20 at 20:59; Status DC Acetaminophen (Tylenol) 650 mg PRN Q4HRS PRN PO FEVER > 100.3'F; Start 09/03/20 at 21:00; Stop 09/04/20 at 20:59; Status DC Ascorbic Acid (Vitamin C) 250 mg DAILY PO Last administered on 09/11/20 09:02; Start 09/04/20 at 09:00 Aspirin (Aspirin Chewable) 81 mg BID PO Last administered on 09/11/20 09:02; Start 09/04/20 at 09:00 Atorvastatin Calcium (Lipitor) 40 mg DAILY PO Last administered on 09/11/20 09:02; Start 09/04/20 at 09:00 Bumetanide (Bumex) 1 mg BID92 PO ; Start 09/04/20 at 09:00; Stop 09/04/20 at 07:53; Status DC Digoxin (Lanoxin) 125 mcg DAILY PO ; Start 09/04/20 at 09:00; Stop 09/04/20 at 07:47; Status DC Docusate Sodium (Colace) 100 mg TID PO Last administered on 09/11/20 09:02; Start 09/04/20 at 09:00 Acetaminophen/ Hydrocodone Bitart (Lortab 5/325) 1 tab PRN Q6HRS PRN PO PAIN Last administered on 09/11/20 03:57; Start 09/03/20 at 22:15 Metoprolol Tartrate (Lopressor) 100 mg DAILY PO ; Start 09/04/20 at 09:00; Stop 09/04/20 at 07:29; Status DC Warfarin Sodium (Coumadin Per Pharmacy) 1 each PRN DAILY PRN MC SEE COMMENTS Last administered on 09/11/20 11:38; Start 09/03/20 at 22:15 Piperacillin Sod/ Tazobactam Sod (Zosyn Per Pharmacy) 1 each PRN DAILY PRN MC SEE COMMENTS; Start 09/03/20 at 22:15; Status Cancel Albuterol/ Ipratropium (Duoneb) 3 ml RTQID NEB Last administered on 09/10/20 20:11; Start 09/04/20 at 08:00 Prednisone (Prednisone) 40 mg 1X ONCE PO Last administered on 09/03/20at 22:41; Start 09/03/20 at 22:15; Stop 09/03/20 at 22:21; Status DC Insulin Human Lispro (HumaLOG) 0-7 UNITS TIDWMEALS SQ Last administered on 09/04/20at 12:32; Start 09/04/20 at 08:00 Dextrose (Dextrose 50%-Water Syringe) 12.5 gm PRN Q15MIN PRN IV SEE COMMENTS; Start 09/03/20 at 22:15 Piperacillin Sod/ Tazobactam Sod 3.375 gm/Sodium Chloride 50 ml @ 100 mls/hr Q6HRS IV Last administered on 09/10/20at 05:09; Start 09/04/20 at 06:00; Stop 09/10/20 at 11:42; Status DC Warfarin Sodium (Coumadin - No Dose Today) 1 each 1X WARF ONCE MC Last administered on 09/04/20at 16:00; Start 09/04/20 at 16:00; Stop 09/04/20 at 16:01; Status DC Bumetanide (Bumex) 2.5 mg BID92 IV Last administered on 09/04/20 15:23; Start 09/04/20 at 09:00; Stop 09/05/20 at 07:46; Status DC Lactobacillus Rhamnosus (Culturelle) 1 cap BID PO Last administered on 09/11/20 09:02; Start 09/04/20 at 21:00 Tamsulosin HCl (Flomax) 0.4 mg QHS PO Last administered on 09/10/20 20:41; Start 09/05/20 at 21:00 Bumetanide (Bumex) 1 mg BID92 IV Last administered on 09/11/20 09:02; Start 09/05/20 at 09:00 Potassium Bicarbonate (Potassium Effervescent Tablet) 40 meq 1X ONCE PO Last administered on 09/05/20at 09:06; Start 09/05/20 at 08:00; Stop 09/05/20 at 08:01; Status DC Warfarin Sodium (Coumadin - No Dose Today) 1 each 1X WARF ONCE MC Last admi nistered on 09/05/20at 15:58; Start 09/05/20 at 16:00; Stop 09/05/20 at 16:01; Status DC Warfarin Sodium (Coumadin - No Dose Today) 1 each 1X WARF ONCE MC Last administered on 09/06/20at 16:00; Start 09/06/20 at 16:00; Stop 09/06/20 at 16:01; Status DC Warfarin Sodium (Coumadin - No Dose Today) 1 each 1X WARF ONCE MC ; Start 09/07/20 at 16:00; Stop 09/07/20 at 16:01; Status DC Bisacodyl (Dulcolax Supp) 10 mg 1X ONCE MN ; Start 09/07/20 at 13:00; Stop 09/07/20 at 18:32; Status DC Bisacodyl (Dulcolax Supp) 10 mg PRN DAILY PRN MN CONSTIPATION Last administered on 09/08/20at 08:29; Start 09/07/20 at 18:45 Warfarin Sodium (Coumadin - No Dose Today) 1 each 1X WARF ONCE MC ; Start 09/08/20 at 16:00; Stop 09/08/20 at 16:01; Status Cancel Warfarin Sodium (Coumadin) 4 mg 1X WARF ONCE PO Last administered on 09/08/20at 17:29; Start 09/08/20 at 16:00; Stop 09/08/20 at 16:01; Status DC Warfarin Sodium (Coumadin) 4 mg 1X WARF ONCE PO Last administered on 09/09/20at 16:53; Start 09/09/20 at 16:00; Stop 09/09/20 at 16:01; Status DC Potassium Chloride (Klor-Con) 20 meq 1X ONCE PO Last administered on 09/09/20at 09:32; Start 09/09/20 at 10:00; Stop 09/09/20 at 10:01; Status DC Linezolid (Zyvox) 600 mg BID PO Last administered on 09/11/20at 09:01; Start 09/09/20 at 12:00 Warfarin Sodium (Coumadin) 4 mg 1X WARF ONCE PO Last administered on 09/10/20at 16:47; Start 09/10/20 at 16:00; Stop 09/10/20 at 16:01; Status DC Meropenem 500 mg/ Sodium Chloride 50 ml @ 100 mls/hr Q8HRS IV Last administered on 09/11/20at 06:11; Start 09/10/20 at 14:00 Furosemide (Lasix) 20 mg DAILY IVP ; Start 09/11/20 at 09:00; Status UNV Phenyleph/Shark Oil/Min Oil/Petrol (Preparation H) 1 mihaela PRN QID PRN RC RECTAL PAIN; Start 09/10/20 at 19:15 Micafungin Sodium 100 mg/Dextrose 100 ml @ 100 mls/hr Q24H IV Last admi nistered on 09/11/20at 11:21; Start 09/11/20 at 10:00 Warfarin Sodium (Coumadin) 4 mg 1X WARF ONCE PO ; Start 09/11/20 at 16:00; Stop 09/11/20 at 16:01 Active Scripts Active [place] 5-325 Tablet (Acetaminophen/Hydrocodone Bitart) 1 Each Tablet 7.5 Mg PO PRN Q6HRS PRN 6 Days LAST DOSE GIVEN: Reported Warfarin Sodium 2 Mg Tablet 4 Mg PO Warfarin Sodium 2 Mg Tablet 6 Mg PO QMTH Bumetanide 1 Mg Tablet 1 Mg PO BID Colace (Docusate Sodium) 100 Mg Capsule 1 Cap PO TID Metamucil Powder (Psyllium Seed (with Sugar)) 575 Gm Powder 575 Gm PO DAILY Atorvastatin Calcium 40 Mg Tablet 1 Tab PO DAILY Metoprolol Tartrate 100 Mg Tablet 100 Mg PO DAILY Tamsulosin Hcl 0.4 Mg Cap.er.24h 0.4 Mg PO HS DAILY Vitamin C (Ascorbic Acid) 500 Mg Tablet 250 Mg PO DAILY Aspirin 81 Mg Tab.chew 81 Mg PO BID Lanoxin (Digoxin) 125 Mcg Tablet 125 Mcg PO DAILY Allergies Allergies: Coded Allergies: I S O L A T I O N *CONTACT* (Verified Allergy, Unknown, 10/15/18) VRE No Known Medication Allergies (Verified Allergy, Unknown, 10/15/18) ROS Review of System Not reliably obtained Physical Exam Physical Examination General: Well-developed, well-nourished black male in no acute distress HEENT: Normocephalic andatraumatic. Temporal arteriespulsatile and nontender. Neck: Supple without bruit, no meningismus Musculoskeletal: Stability:see neurologic. Gait exam:see neurologic. Tone:see n eurologic.Strength:see neurologic. Neurological: Mental Status:orientation, memory, attention span/concentration, language, fund of knowledge: He can tell me his name, does not know date, location, reason why he is here. Follows some simple commands but not complex. He does name 1 object, but then perseverates on it. Cranial Nerves:Pupils equal and reactive to light, extraocular movements areintact, visual doshi are full to confrontation. Facial sensation is normal. There is no facial asymmetry. Ve stibulo-ocular reflex is intact. Palate elevates and tongue protrudes in midline. All other cranial related problems are negative except as mentioned before.Reflexes:1+ and symmetric with flexor plantar responses. Bilateral grasp reflexes. Motor:4/5 strength with normal tone and bulk. Coordination:Finger-nose finger is normal. Rapid alternating movements and fine finger movements are intact. Gait:not tested. Sensory:Normal pinprick, vibration, light touch, proprioception. Vitals VITALS Vital Signs Date Time Temp Pulse Resp B/P (MAP) Pulse Ox O2 Delivery O2 Flow Rate FiO2 09/11/20 11:00 98.4 82 18 110/54 (72) 95 Room Air 98.4 Labs Labs Laboratory Tests Test 09/09/20 17:31 09/09/20 20:31 09/10/20 03:30 09/10/20 07:42 Glucose (Fingerstick) 74 mg/dL (70-99) 95 mg/dL (70-99) 95 mg/dL (70-99) White Blood Count 31.0 x10^3/uL (4.0-11.0) Red Blood Count 3.41 x10^6/uL (4.30-5.70) Hemoglobin 9.4 g/dL (13.0-17.5) Hematocrit 30.9 % (39.0-53.0) Mean Corpuscular Volume 91 fL (79-100) Mean Corpuscular Hemoglobin 28 pg (25-35) Mean Corpuscular Hemoglobin Concent 30 g/dL (31-37) Red Cell Distribution Width 25.2 % (11.5-14.5) Platelet Count 426 x10^3/uL (140-400) Neutrophils (%) (Auto) 85 % (31-73) Lymphocytes (%) (Auto) 6 % (24-48) Monocytes (%) (Auto) 3 % (0-9) Eosinophils (%) (Auto) 2 % (0-3) Basophils (%) (Auto) 5 % (0-3) Neutrophils # (Auto) 26.3 x10^3/uL (1.8-7.7) Lymphocytes # (Auto) 1.8 x10^3/uL (1.0-4.8) Monocytes # (Auto) 0.9 x10^3/uL (0.0-1.1) Eosinophils # (Auto) 0.5 x10^3/uL (0.0-0.7) Basophils # (Auto) 1.6 x10^3/uL (0.0-0.2) Prothrombin Time 27.3 SEC (11.7-14.0) Prothromb Time International Ratio 2.5 (0.8-1.1) Sodium Level 146 mmol/L (136-145) Potassium Level 3.7 mmol/L (3.5-5.1) Chloride Level 110 mmol/L (98-107) Carbon Dioxide Level 22 mmol/L (21-32) Anion Gap 14 (6-14) Blood Urea Nitrogen 48 mg/dL (8-26) Creatinine 1.9 mg/dL (0.7-1.3) Estimated GFR (Cockcroft-Gault) 40.7 Glucose Level 77 mg/dL (70-99) Calcium Level 8.4 mg/dL (8.5-10.1) Test 09/10/20 11:21 09/10/20 16:54 09/10/20 20:32 09/11/20 07:20 Glucose (Fingerstick) 142 mg/dL (70-99) 95 mg/dL (70-99) 92 mg/dL (70-99) White Blood Count 33.4 x10^3/uL (4.0-11.0) Red Blood Count 3.48 x10^6/uL (4.30-5.70) Hemoglobin 9.5 g/dL (13.0-17.5) Hematocrit 31.2 % (39.0-53.0) Mean Corpuscular Volume 90 fL (79-100) Mean Corpuscular Hemoglobin 27 pg (25-35) Mean Corpuscular Hemoglobin Concent 31 g/dL (31-37) Red Cell Distribution Width 25.5 % (11.5-14.5) Platelet Count 385 x10^3/uL (140-400) Neutrophils (%) (Auto) 86 % (31-73) Lymphocytes (%) (Auto) 4 % (24-48) Monocytes (%) (Auto) 3 % (0-9) Eosinophils (%) (Auto) 1 % (0-3) Basophils (%) (Auto) 6 % (0-3) Neutrophils # (Auto) 28.7 x10^3/uL (1.8-7.7) Lymphocytes # (Auto) 1.5 x10^3/uL (1.0-4.8) Monocytes # (Auto) 0.9 x10^3/uL (0.0-1.1) Eosinophils # (Auto) 0.4 x10^3/uL (0.0-0.7) Basophils # (Auto) 1.9 x10^3/uL (0.0-0.2) Prothrombin Time 29.0 SEC (11.7-14.0) Prothromb Time International Ratio 2.7 (0.8-1.1) Sodium Level 145 mmol/L (136-145) Potassium Level 3.3 mmol/L (3.5-5.1) Chloride Level 109 mmol/L (98-107) Carbon Dioxide Level 23 mmol/L (21-32) Anion Gap 13 (6-14) Blood Urea Nitrogen 46 mg/dL (8-26) Creatinine 1.9 mg/dL (0.7-1.3) Estimated GFR (Cockcroft-Gault) 40.7 Glucose Level 83 mg/dL (70-99) Uric Acid 13.8 mg/dL (3.5-7.2) Calcium Level 8.5 mg/dL (8.5-10.1) Test 09/11/20 08:24 09/11/20 11:31 Glucose (Fingerstick) 82 mg/dL (70-99) 80 mg/dL (70-99) Laboratory Tests Test 09/10/20 16:54 09/10/20 20:32 09/11/20 07:20 09/11/20 08:24 Glucose (Fingerstick) 95 mg/dL (70-99) 92 mg/dL (70-99) 82 mg/dL (70-99) White Blood Count 33.4 x10^3/uL (4.0-11.0) Red Blood Count 3.48 x10^6/uL (4.30-5.70) Hemoglobin 9.5 g/dL (13.0-17.5) Hematocrit 31.2 % (39.0-53.0) Mean Corpuscular Volume 90 fL (79-100) Mean Corpuscular Hemoglobin 27 pg (25-35) Mean Corpuscular Hemoglobin Concent 31 g/dL (31-37) Red Cell Distribution Width 25.5 % (11.5-14.5) Platelet Count 385 x10^3/uL (140-400) Neutrophils (%) (Auto) 86 % (31-73) Lymphocytes (%) (Auto) 4 % (24-48) Monocytes (%) (Auto) 3 % (0-9) Eosinophils (%) (Auto) 1 % (0-3) Basophils (%) (Auto) 6 % (0-3) Neutrophils # (Auto) 28.7 x10^3/uL (1.8-7.7) Lymphocytes # (Auto) 1.5 x10^3/uL (1.0-4.8) Monocytes # (Auto) 0.9 x10^3/uL (0.0-1.1) Eosinophils # (Auto) 0.4 x10^3/uL (0.0-0.7) Basophils # (Auto) 1.9 x10^3/uL (0.0-0.2) Prothrombin Time 29.0 SEC (11.7-14.0) Prothromb Time International Ratio 2.7 (0.8-1.1) Sodium Level 145 mmol/L (136-145) Potassium Level 3.3 mmol/L (3.5-5.1) Chloride Level 109 mmol/L (98-107) Carbon Dioxide Level 23 mmol/L (21-32) Anion Gap 13 (6-14) Blood Urea Nitrogen 46 mg/dL (8-26) Creatinine 1.9 mg/dL (0.7-1.3) Estimated GFR (Cockcroft-Gault) 40.7 Glucose Level 83 mg/dL (70-99) Uric Acid 13.8 mg/dL (3.5-7.2) Calcium Level 8.5 mg/dL (8.5-10.1) Test 09/11/20 11:31 Glucose (Fingerstick) 80 mg/dL (70-99) Assessment/Plan Assessment/Plan Impression: Dementia, metabolic encephalopathy Multiple medical problems: pneumonia, heart failure, leukocytosis, questionable etiology, coronary artery disease, atrial fibrillation, anemia and thrombocytos is, on top of his diabetes and COPD Note normal B12 and TSH Recommendations: He has not had any brain imaging studies, I will check a head CT I left a message with the patient's son Treat medical issues Discussed with Dr. Tucker Thank you for letting me help with the patient's care. LEENA BRICE MD Sep 11, 2020 13:45
[2020-09-11 15:00] VITALS: BP 120/61
[2020-09-11] MEDS ORDERED: WARFARIN 4 MG TABLET. PO ONE (16:00)
[2020-09-11] MEDS: DEXTROSE 50% 25 GM / 50ML DISP.SYRIN. IV PRN (18:11)
--- NOTE | 2020-09-11 18:20 | RAD ---
EXAM: Left lower extremity venous Doppler sonogram. HISTORY: Pain and swelling. TECHNIQUE: Leonardo scale and color Doppler sonographic evaluation of the left lower extremity veins with spectral waveform analysis was performed. FINDINGS: There is normal color flow, normal compressibility and there are normal spectral waveforms in the common femoral, superficial femoral, popliteal, posterior tibial and greater saphenous veins. The calf veins are not well seen due to soft tissue edema. IMPRESSION: No Doppler evidence of lower extremity deep venous thrombosis. Electronically signed by: Sarah Mccabe MD (09/11/2020 6:17 PM) [facility]
[2020-09-11 19:00] VITALS: BP 112/51
[2020-09-11] MEDS: IV DEXTROSE 5% 1,000 ML IV SCH (20:29)
[2020-09-11] MEDS: TAMSULOSIN 0.4 MG CAP.ER.24H. PO SCH (20:30)
[2020-09-11 23:00] VITALS: BP 109/52
--- NOTE | 2020-09-11 23:10 | NUR ---
Ct called stating they have been busy with Emergency scans. Patient was unable to rest well last night. Patient currently resting quietly. Told CT do do the scan first thing in the am so Patient can rest.
--- NOTE | 2020-09-11 23:49 | NUR ---
Call placed to radiology to have them come and do cat scan tonight.
--- NOTE | 2020-09-12 00:09 | NUR ---
Upon talking to Francisco regarding taking him down to go do the cat scan. Patient states "I don't want to do it!" Call placed to Patient's Светлана at [phone] from room and informed her that Patient did not want to do it. Patient talked to his and stated "I don't want to do it!" Patient's told this RN " Okay, I don't want to go against his wishes, don't do the cat scan." CT notified. Will cancel order.
--- NOTE | 2020-09-12 02:33 | NUR ---
Informed by Camille KIM that Patient stated "I'm getting out of here tomorrow and I'm going home and going to shoot myself." Charge nurse Radha IBANEZ notified. Going to ask suicide assessment questions.
--- NOTE | 2020-09-12 02:35 | NUR ---
Upon asking Patient if he told Camille that he was going to go home and shoot himself. Chemo stated "No No I'm not going to do that< sometimes I just say that."
[2020-09-12 03:00] VITALS: BP 123/66
[2020-09-12 04:27] LABS: BASO # 1.9 x10^3/uL (0.0-0.2); BASO % 5 % (0-3); EOS # 0.3 x10^3/uL (0.0-0.7); EOS % 1 % (0-3); HEMATOCRIT 34.4 % (39.0-53.0); HEMOGLOBIN 10.3 g/dL (13.0-17.5); LYMPH # 2.5 x10^3/uL (1.0-4.8); LYMPH % 7 % (24-48); MEAN CORPUSCULAR HEMOGLOBIN 28 pg (25-35); MEAN CORPUSCULAR HGB CONC 30 g/dL (31-37); MEAN CORPUSCULAR VOLUME 92 fL (79-100); MONO # 0.8 x10^3/uL (0.0-1.1); MONO % 2 % (0-9); NEUT # 33.1 x10^3/uL (1.8-7.7); NEUT % 86 % (31-73); PLATELET COUNT 424 x10^3/uL (140-400); RED BLOOD COUNT 3.74 x10^6/uL (4.30-5.70); WHITE BLOOD COUNT 38.7 x10^3/uL (4.0-11.0)
[2020-09-12] MEDS: MEROPENEM 500 MG in IV NORMAL SALINE 50ML 50 ML IV SCH ×3 (05:47→22:28)
--- NOTE | 2020-09-12 06:21 | PDOC ---
PULMONARY PROGRESS NOTES DATE: 09/12/20 TIME: 06:20 Subjective on room air refused ct of head last night denies SOA or Cough is tired Vitals Vital Signs Date Time Temp Pulse Resp B/P (MAP) Pulse Ox O2 Delivery O2 Flow Rate FiO2 09/12/20 03:00 98.0 96 18 123/66 (85) 94 Room Air 98.0 ROS: No Nausea, No Chest Pain, No Abdominal Pain, No Increase Cough General: Alert, No acute distress Lungs: Crackles (bases ) Cardiovascular: S1, S2 Abdomen: Soft, Non-tender Neuro Exam: Alert, Oriented Extremities: Other (edema) Skin: Warm, Dry Labs Laboratory Tests Test 09/10/20 07:42 09/10/20 11:21 09/10/20 16:54 09/10/20 20:32 Glucose (Fingerstick) 95 mg/dL (70-99) 142 mg/dL (70-99) 95 mg/dL (70-99) 92 mg/dL (70-99) Test 09/11/20 07:20 09/11/20 08:24 09/11/20 11:31 09/11/20 18:01 White Blood Count 33.4 x10^3/uL (4.0-11.0) Red Blood Count 3.48 x10^6/uL (4.30-5.70) Hemoglobin 9.5 g/dL (13.0-17.5) Hematocrit 31.2 % (39.0-53.0) Mean Corpuscular Volume 90 fL (79-100) Mean Corpuscular Hemoglobin 27 pg (25-35) Mean Corpuscular Hemoglobin Concent 31 g/dL (31-37) Red Cell Distribution Width 25.5 % (11.5-14.5) Platelet Count 385 x10^3/uL (140-400) Neutrophils (%) (Auto) 86 % (31-73) Lymphocytes (%) (Auto) 4 % (24-48) Monocytes (%) (Auto) 3 % (0-9) Eosinophils (%) (Auto) 1 % (0-3) Basophils (%) (Auto) 6 % (0-3) Neutrophils # (Auto) 28.7 x10^3/uL (1.8-7.7) Lymphocytes # (Auto) 1.5 x10^3/uL (1.0-4.8) Monocytes # (Auto) 0.9 x10^3/uL (0.0-1.1) Eosinophils # (Auto) 0.4 x10^3/uL (0.0-0.7) Basophils # (Auto) 1.9 x10^3/uL (0.0-0.2) Prothrombin Time 29.0 SEC (11.7-14.0) Prothromb Time International Ratio 2.7 (0.8-1.1) Sodium Level 145 mmol/L (136-145) Potassium Level 3.3 mmol/L (3.5-5.1) Chloride Level 109 mmol/L (98-107) Carbon Dioxide Level 23 mmol/L (21-32) Anion Gap 13 (6-14) Blood Urea Nitrogen 46 mg/dL (8-26) Creatinine 1.9 mg/dL (0.7-1.3) Estimated GFR (Cockcroft-Gault) 40.7 Glucose Level 83 mg/dL (70-99) Uric Acid 13.8 mg/dL (3.5-7.2) Calcium Level 8.5 mg/dL (8.5-10.1) Glucose (Fingerstick) 82 mg/dL (70-99) 80 mg/dL (70-99) 41 mg/dL (70-99) Test 09/11/20 18:37 09/11/20 20:57 09/12/20 03:30 Glucose (Fingerstick) 128 mg/dL (70-99) 95 mg/dL (70-99) White Blood Count 38.7 x10^3/uL (4.0-11.0) Red Blood Count 3.74 x10^6/uL (4.30-5.70) Hemoglobin 10.3 g/dL (13.0-17.5) Hematocrit 34.4 % (39.0-53.0) Mean Corpuscular Volume 92 fL (79-100) Mean Corpuscular Hemoglobin 28 pg (25-35) Mean Corpuscular Hemoglobin Concent 30 g/dL (31-37) Red Cell Distribution Width 25.0 % (11.5-14.5) Platelet Count 424 x10^3/uL (140-400) Neutrophils (%) (Auto) 86 % (31-73) Lymphocytes (%) (Auto) 7 % (24-48) Monocytes (%) (Auto) 2 % (0-9) Eosinophils (%) (Auto) 1 % (0-3) Basophils (%) (Auto) 5 % (0-3) Neutrophils # (Auto) 33.1 x10^3/uL (1.8-7.7) Lymphocytes # (Auto) 2.5 x10^3/uL (1.0-4.8) Monocytes # (Auto) 0.8 x10^3/uL (0.0-1.1) Eosinophils # (Auto) 0.3 x10^3/uL (0.0-0.7) Basophils # (Auto) 1.9 x10^3/uL (0.0-0.2) Laboratory Tests Test 09/11/20 07:20 09/11/20 08:24 09/11/20 11:31 09/11/20 18:01 White Blood Count 33.4 x10^3/uL (4.0-11.0) Red Blood Count 3.48 x10^6/uL (4.30-5.70) Hemoglobin 9.5 g/dL (13.0-17.5) Hematocrit 31.2 % (39.0-53.0) Mean Corpuscular Volume 90 fL (79-100) Mean Corpuscular Hemoglobin 27 pg (25-35) Mean Corpuscular Hemoglobin Concent 31 g/dL (31-37) Red Cell Distribution Width 25.5 % (11.5-14.5) Platelet Count 385 x10^3/uL (140-400) Neutrophils (%) (Auto) 86 % (31-73) Lymphocytes (%) (Auto) 4 % (24-48) Monocytes (%) (Auto) 3 % (0-9) Eosinophils (%) (Auto) 1 % (0-3) Basophils (%) (Auto) 6 % (0-3) Neutrophils # (Auto) 28.7 x10^3/uL (1.8-7.7) Lymphocytes # (Auto) 1.5 x10^3/uL (1.0-4.8) Monocytes # (Auto) 0.9 x10^3/uL (0.0-1.1) Eosinophils # (Auto) 0.4 x10^3/uL (0.0-0.7) Basophils # (Auto) 1.9 x10^3/uL (0.0-0.2) Prothrombin Time 29.0 SEC (11.7-14.0) Prothromb Time International Ratio 2.7 (0.8-1.1) Sodium Level 145 mmol/L (136-145) Potassium Level 3.3 mmol/L (3.5-5.1) Chloride Level 109 mmol/L (98-107) Carbon Dioxide Level 23 mmol/L (21-32) Anion Gap 13 (6-14) Blood Urea Nitrogen 46 mg/dL (8-26) Creatinine 1.9 mg/dL (0.7-1.3) Estimated GFR (Cockcroft-Gault) 40.7 Glucose Level 83 mg/dL (70-99) Uric Acid 13.8 mg/dL (3.5-7.2) Calcium Level 8.5 mg/dL (8.5-10.1) Glucose (Fingerstick) 82 mg/dL (70-99) 80 mg/dL (70-99) 41 mg/dL (70-99) Test 09/11/20 18:37 09/11/20 20:57 09/12/20 03:30 Glucose (Fingerstick) 128 mg/dL (70-99) 95 mg/dL (70-99) White Blood Count 38.7 x10^3/uL (4.0-11.0) Red Blood Count 3.74 x10^6/uL (4.30-5.70) Hemoglobin 10.3 g/dL (13.0-17.5) Hematocrit 34.4 % (39.0-53.0) Mean Corpuscular Volume 92 fL (79-100) Mean Corpuscular Hemoglobin 28 pg (25-35) Mean Corpuscular Hemoglobin Concent 30 g/dL (31-37) Red Cell Distribution Width 25.0 % (11.5-14.5) Platelet Count 424 x10^3/uL (140-400) Neutrophils (%) (Auto) 86 % (31-73) Lymphocytes (%) (Auto) 7 % (24-48) Monocytes (%) (Auto) 2 % (0-9) Eosinophils (%) (Auto) 1 % (0-3) Basophils (%) (Auto) 5 % (0-3) Neutrophils # (Auto) 33.1 x10^3/uL (1.8-7.7) Lymphocytes # (Auto) 2.5 x10^3/uL (1.0-4.8) Monocytes # (Auto) 0.8 x10^3/uL (0.0-1.1) Eosinophils # (Auto) 0.3 x10^3/uL (0.0-0.7) Basophils # (Auto) 1.9 x10^3/uL (0.0-0.2) Medications Active Scripts Medications Dose Route/Sig Max Daily Dose Days Date Category Dose Instructions Bumetanide 1 Mg Tablet 1 Mg PO BID 07/28/20 Reported [place] 5-325 Tablet (Acetaminophen/Hydrocodone Bitart) 1 Each Tablet 7.5 Mg PO PRN Q6HRS PRN 6 09/20/18 Rx LAST DOSE GIVEN: Colace (Docusate Sodium) 100 Mg Capsule 1 Cap PO TID 09/09/18 Reported Metamucil Powder (Psyllium Seed (with Sugar)) 575 Gm Powder 575 Gm PO DAILY 09/09/18 Reported Atorvastatin Calcium 40 Mg Tablet 1 Tab PO DAILY 08/12/18 Reported Metoprolol Tartrate 100 Mg Tablet 100 Mg PO DAILY 11/08/17 Reported Tamsulosin Hcl 0.4 Mg Cap.er.24h 0.4 Mg PO HS DAILY 11/08/17 Reported Vitamin C (Ascorbic Acid) 500 Mg Tablet 250 Mg PO DAILY 05/08/14 Reported Warfarin Sodium 5 Mg Tablet 1.5 Tab PO QWE 04/18/14 Reported Warfarin Sodium 5 Mg Tablet 1 Tab PO DAILY EXCEPT WED. 04/18/14 Reported Aspirin 81 Mg Tab.chew 81 Mg PO BID 08/22/13 Reported Lanoxin (Digoxin) 125 Mcg Tablet 125 Mcg PO DAILY 08/22/13 Reported Comments 09/11 cxr reviewed 1. Left lower lobe infiltrate superimposed on chronic interstitial changes. 2. Stable small pleural effusions. 3. Cardiomegaly and left greater than right hilar enlargement likely due to pulmonary artery hypertension. ct of abd pelvis chest 1. Enlarged ascending thoracic aorta measuring 4.5 cm. 2. Moderate cardiomegaly. 3. Increased, small pleural effusions and bibasilar atelectasis. Mild emphysema. Chronic appearing interstitial changes or scarring in the lung bases, unchanged. 4. Mild hepatosplenomegaly. 5. Trace ascites. Impression . IMPRESSION: 1. Dyspnea secondary to acute systolic and diastolic congestive heart failure--improving on room air 2. Abnormal chest x-ray. 3. 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 4. Cardiomyopathy. 5. 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 6. Obstructive sleep apnea-hypopnea syndrome, CPAP noncompliant. 7. Paroxysmal atrial fibrillation, on Coumadin. 8. Acute kidney injury/chronic kidney disease. 9. leukocytosis --worsening --ID following Plan . RECOMMENDATIONS: is weak aspiration precaution neuro consulted need to re address his code status per primary Titrate FiO2 to keep O2 saturation 90%, on room air ID consulted for worsening leukocytosis-- CT of Chest/ABD/PLVS reviewed abx per id on Merrem ( 09/10) and Zyvox, micafungin added 09/11 doesnt want to use cpap the importance of christopher tx discussed He understands the risks of not treating obstructive sleep apnea-hypopnea syndrome. ct of chest reviewed, Increased, but small pleural effusions (not amenable to thoracentesis) and bibasilar atelectasis. Mild emphysema. Chronic appearing interstitial changes or scarring in the lung bases, unchanged. Oncology planning for outpt bone marrow biopsy BD Follow cardiology recs----Echocardiogram 2019 ejection fraction of 40% Follow nephrology recs - monitor renal function Continue Coumadin. Keep INR between 2 and 3 monitor hb DVT/GI PPX D/W IFEANYI BAKER MD Sep 12, 2020 06:21
[2020-09-12 07:00] VITALS: BP 115/62
[2020-09-12] MEDS: INSULIN LISPRO 300 UNITS/3 ML VIAL. SQ SCH ×3 (08:00→17:00)
[2020-09-12] MEDS ORDERED: ALBUTEROL SULFATE 2.5 MG/3 ML NEBU. NEB PRN (08:15)
--- NOTE | 2020-09-12 08:22 | PDOC ---
Infectious Disease Note Subjective: Subjective Patient was noted to have temperature 102.9 last p.m. Was an error in recording per RN as repeat temperature was within normal limits within an hour without any intervention Continues to have swelling of both the legs especially knees Denies nausea, vomiting, diarrhea Some cough and shortness of breath but has improved Vital Signs: Vital Signs Vital Signs Date Time Temp Pulse Resp B/P (MAP) Pulse Ox O2 Delivery O2 Flow Rate FiO2 09/12/20 03:00 98.0 96 18 123/66 (85) 94 Room Air 98.0 Physical Exam: PHYSICAL EXAM GENERAL: Pleasant, alert, awake male, sitting upright in chair in no acute distress. Answers only a few questions HEENT: Normocephalic, atraumatic. Oral mucosa moist. NECK: Supple. LUNGS: Mild crackles. HEART: S1, S2. Pacemaker without signs of complication. ABDOMEN: Soft, nontender, and nondistended. EXTREMITIES: No cyanosis bilateral lower extremity swelling present,? Calf tenderness present left lower extremity MSK changes suggestive of DJD, pain in left knee, no effusion DERMATOLOGIC: Warm, dry. No generalized rash. NEUROLOGIC: Alert, awake, answers questions appropriately. PSYCHIATRIC: Calm and cooperative. Medications: Inpatient Meds: Medications reviewed. Labs: Lab Laboratory Tests Test 09/11/20 08:24 09/11/20 11:31 09/11/20 18:01 09/11/20 18:37 Glucose (Fingerstick) 82 mg/dL (70-99) 80 mg/dL (70-99) 41 mg/dL (70-99) 128 mg/dL (70-99) Test 09/11/20 20:57 09/12/20 03:30 Glucose (Fingerstick) 95 mg/dL (70-99) White Blood Count 38.7 x10^3/uL (4.0-11.0) Red Blood Count 3.74 x10^6/uL (4.30-5.70) Hemoglobin 10.3 g/dL (13.0-17.5) Hematocrit 34.4 % (39.0-53.0) Mean Corpuscular Volume 92 fL (79-100) Mean Corpuscular Hemoglobin 28 pg (25-35) Mean Corpuscular Hemoglobin Concent 30 g/dL (31-37) Red Cell Distribution Width 25.0 % (11.5-14.5) Platelet Count 424 x10^3/uL (140-400) Neutrophils (%) (Auto) 86 % (31-73) Lymphocytes (%) (Auto) 7 % (24-48) Monocytes (%) (Auto) 2 % (0-9) Eosinophils (%) (Auto) 1 % (0-3) Basophils (%) (Auto) 5 % (0-3) Neutrophils # (Auto) 33.1 x10^3/uL (1.8-7.7) Lymphocytes # (Auto) 2.5 x10^3/uL (1.0-4.8) Monocytes # (Auto) 0.8 x10^3/uL (0.0-1.1) Eosinophils # (Auto) 0.3 x10^3/uL (0.0-0.7) Basophils # (Auto) 1.9 x10^3/uL (0.0-0.2) Micro BC neg CT C/A/P WO FINDINGS: CHEST: Thyroid gland and thoracic inlet: Unremarkable. Heart and great vessels: Moderate cardiomegaly is unchanged. There are pacemaker/AICD leads in the right atrium and ventricle. There are coronary artery calcifications. The thoracic aorta is enlarged measuring 4.5 cm in the ascending portion. Mild calcified aortic atherosclerosis. Mediastinum and kash: Multiple small mediastinal and hilar lymph nodes are unchanged. Lungs and pleura: There is mild emphysema. There are chronic posterior basilar groundglass and reticular changes. Mild atelectasis in the lower lobes. Increased, small bilateral pleural effusions. Chest wall and axillae: No axillary lymphadenopathy. Chest wall is unremarkable. Bones: No acute osseous abnormality in the chest. There is degenerative disc disease in the lower thoracic spine. There is an old right posterior rib deformity. ABDOMEN AND PELVIS: Liver: The liver is mildly enlarged measuring 19 cm in length. Gallbladder/Biliary Tree: Gallbladder is absent. Bile ducts are within normal limits. Pancreas: There is mild pancreatic atrophy. Spleen: The spleen is enlarged measuring 16 cm in length. Adrenal Glands: Normal. Kidneys/Ureters/Bladder: Kidneys are normal in size. There is no nephrolithiasis. Urinary bladder is unremarkable. Reproductive Organs: Prostate gland is normal. Stomach, small bowel, and colon: The stomach, small bowel, and colon are unremarkable. Evaluation of bowel is limited due to noncontrast exam and motion artifact. Vasculature: No abdominal aortic aneurysm. There is mild moderate calcified atherosclerosis. Lymph Nodes: No lymphadenopathy. Peritoneum and retroperitoneum: Trace ascites. Bones: No acute osseous abnormality in the abdomen and pelvis. Degenerative disc disease, greatest at L2-L3. IMPRESSION: 1. Enlarged ascending thoracic aorta measuring 4.5 cm. 2. Moderate cardiomegaly. 3. Increased, small pleural effusions and bibasilar atelectasis. Mild emphysema. Chronic appearing interstitial changes or scarring in the lung bases, unchanged. 4. Mild hepatosplenomegaly. 5. Trace ascites. Objective: Assessment: Fever on broad spectrum abx 1. Leukocytosis, 2. Acute on chronic heart failure. 3. Coronary artery disease. 4. Permanent atrial fibrillation. 5. Diabetes. 6. Dysphagia. 7. Anemia and thrombocytosis. 8. Generalized debility. 9. Constipation 10.Lt knee pain ? gout 11. LLE pain US neg for DVT Plan: Plan of Care Repeat UA pending Continue Merrem ( 09/10) and Zyvox,was on zosyn, cont micafungin Ultrasound of left lower extremity and Left knee x-ray reviewed Uric acid high, management per Primary F/U labs and repeat cultures Oncology input noted, bone marrow biopsy scheduled as outpatient CT abdomen pelvis and chest without reviewed Monitor labs and cultures If patient has diarrhea check C. difficile Maintain aspiration precaution. D/W RN Discussed with 2 sons at bedside ANDREA TIJERINA MD Sep 12, 2020 08:22
[2020-09-12] MEDS: LACTOBACILLUS RHAMNOSUS GG 1 CAPSULE. PO SCH ×2 (09:00→21:09)
[2020-09-12] MEDS: ASCORBIC ACID 500 MG TABLET PO SCH (09:00)
[2020-09-12] MEDS: ATORVASTATIN CALCIUM 40 MG TABLET. PO SCH (09:00)
[2020-09-12] MEDS: ASPIRIN CHEWABLE 81 MG TABLET. PO SCH ×2 (09:00→21:09)
[2020-09-12] MEDS: BUMETANIDE 1 MG/4 ML VIAL. IV SCH ×2 (09:00→14:51)
[2020-09-12] MEDS: LINEZOLID 600 MG TABLET PO SCH ×2 (09:00→21:09)
[2020-09-12] MEDS: DOCUSATE SODIUM 100 MG CAPSULE. PO SCH ×3 (09:00→21:00)
[2020-09-12 11:00] VITALS: BP 113/59
--- NOTE | 2020-09-12 11:14 | PDOC ---
PROGRESS NOTES Date of Service: DATE: 09/12/20 TIME: 11:13 Chief Complaint Chief Complaint impression Acute on chronic combined systolic and diastolic heart failure. We will diurese with intravenous Bumex. 2D echo in September 2019 showed LVEF 40%. Coronary artery disease: Patient has known chronic total occlusion of LAD with collaterals, presently stable and chest pain-free. Lexiscan nuclear stress test in March 2020 showed large inferior infarct without any significant ischemia. Continue current secondary prevention measures. Sick sinus syndrome s/p permanent pacemaker implantation with more recent generator change. Recent device check showed normal function. He denied any syncope or near syncope. Permanent atrial fibrillation: Telemetry showed demand pacing. Patient on warfarin for stroke prophylaxis. Check PT/INR. Hypertension - Controlled. Will back off on his BB. He is actually on 100mg metoprolol tartrate Hyperlipidemia - Continue statin Diabetes mellitus type 2 - diet controlled, A1c previously 5.8 Severe Protein calorie malnutrition - severe given his edema and albumin. 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 Normal LV systolic function. EF 60% plan FEN - Cardiac ADA diet PPX - warfarin CODE - FULL Dispo - inpatient CVC for CHF exacerbation Hyperlipidemia - Continue statin Diabetes mellitus type 2 - diet controlled, A1c previously 5.8 Severe Protein calorie malnutrition - severe given his edema and albumin. Crm Architect to see D/W RN Defer to pulmonology regarding management of acute hypoxic respiratory failure and antibiotics ONCOLOGY plan on seeing patient in follow-up as outpatient to reassess CBC and discussed results of BCR ABL FISH and JAK2 mutation testing ID CONSULT 37 min pt exam, chart review, > 50% of time spent with exam, chart review, pt care coordination Worsening interstitial changes throughout both lungs, with worsening perihilar consolidation. Findings may reflect progressive interstitial pulmonary edema or infection. CXR 6- Continue Merrem ( 09/10) and Zyvox,was on zosyn CONTINUE micafungin History of Present Illness History of Present Illness Mr Rivero is an 89yo M w/ PMHx DM2, HLD, HTN, afib, SSS s/p PPM, CAD, chronic systolic CHF who presented to ED c/o for weakness and dyspnea. Also complains of dyspnea worsening over weeks, with a few days of noted LE edema is worse with cough in the morning that is productive of white sputum. he has cough at times, He denied any chest pain, palpitations or syncope. Given 1 dose iv lasix in ED 40mg, < 500 uop after, still feeling short of breath. He follows with Dr. Santoyo and has been recently changed to Bumex last month. Chest radiograph with interstitial edema. Labs with WBC 27.3, Hb 10.3, platelets 454, NA 145, K4.7, BUN 58, CR 2.1, INR 3.2 TSH 5.5, digoxin level 2.2, albumin 2.7, bilirubin 2.2, AST 56 ALT 12 alkaline phosphatase 138 NT proBNP 31,348 Admitted for further treatment. 09/04: Afebrile. WBC still high. Reasonably good urine output. A little confused Febrile. 1.3 L urine output. Still with very swollen lower extremities. No c hest pain little bit short of breath. Not on O2 today. 09-06 Still with very swollen lower extremities. No chest pain little bit short of breath. Acute on chronic combined systolic and diastolic heart failure. We will diurese with intravenous Bumex. 2D echo in September 2019 showed LVEF 40%. Coronary artery disease: Patient has known chronic total occlusion of LAD with collaterals, presently stable and chest pain-free. Lexiscan nuclear stress test in March 2020 showed large inferior infarct without any significant ischemia. Continue current secondary prevention measures. Sick sinus syndrome s/p permanent pacemaker implantation with more recent generator change. Recent device check showed normal function. He denied any syncope or near syncope. Permanent atrial fibrillation: Telemetry showed demand pacing. Patient on warfarin for stroke prophylaxis. Check PT/INR. Hypertension - Controlled. Will back off on his BB. He is actually on 100mg metoprolol tartrate Hyperlipidemia - Continue statin Diabetes mellitus type 2 - diet controlled, A1c previously 5.8 Severe Protein calorie malnutrition - severe given his edema and albumin. Crm Architect to see D/W RN 09/07 CR 2.2 LESS swollen lower extremities. No chest pain little bit short of breath. Acute on chronic combined systolic and diastolic heart failure. We will diurese with intravenous Bumex. 2D echo in September 2019 showed LVEF 40%. Coronary artery disease: Patient has known chronic total occlusion of LAD with collaterals, presently stable and chest pain-free. Lexiscan nuclear stress test in March 2020 showed large inferior infarct without any significant ischemia. Continue current secondary prevention measures. Sick sinus syndrome s/p permanent pacemaker implantation with more recent generator change. Recent device check showed normal function. He denied any syncope or near syncope. Permanent atrial fibrillation: Telemetry showed demand pacing. Patient on warfarin for stroke prophylaxis. Check PT/INR. Hypertension - Controlled. Will back off on his BB. He is actually on 100mg metoprolol tartrate Hyperlipidemia - Continue statin Diabetes mellitus type 2 - diet controlled, A1c previously 5.8 Severe Protein calorie malnutrition - severe given his edema and albumin. Crm Architect to see D/W RN 09/08 CR 2.0 wbc 30.3 CAD; catheterization 08/2018 with SANDING SUPER[employer] of LAD with collaterals, which is unchanged from previous cath in 2013. clinically stable, CP free. 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 Permanent AFIB; rate controlled with BB. on warfarin for stroke prevention. 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 No chest pain little bit short of breath. Acute on chronic combined systolic and diastolic heart failure. We will diurese with intravenous Bumex. 2D echo in September 2019 showed LVEF 40%. Coronary artery disease: Patient has known chronic total occlusion of LAD with collaterals, presently stable and chest pain-free. Lexiscan nuclear stress test in March 2020 showed large inferior infarct without any significant ischemia. Continue current secondary prevention measures. Sick sinus syndrome s/p permanent pacemaker implantation with more recent generator change. Recent device check showed normal function. He denied any syncope or near syncope. Permanent atrial fibrillation: Telemetry showed demand pacing. Patient on warfarin for stroke prophylaxis. Check PT/INR. Hypertension - Controlled. Will back off on his BB. He is actually on 100mg metoprolol tartrate Hyperlipidemia - Continue statin Diabetes mellitus type 2 - diet controlled, A1c previously 5.8 Severe Protein calorie malnutrition - severe given his edema and albumin. Crm Architect to see D/W RN 37 min pt exam, chart review, > 50% of time spent with exam, chart review, pt care coordination 09/09 CR 2.0 wbc 30.3 CAD; catheterization 08/2018 with [employer]ANDING SUPER[employer] of LAD with collaterals, which is unchanged from previous cath in 2013. clinically stable, CP free. 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 Permanent AFIB; rate controlled with BB. on warfarin for stroke prevention. 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 No chest pain little bit short of breath. Acute on chronic combined systolic and diastolic heart failure. We will diurese with intravenous Bumex. 2D echo in September 2019 showed LVEF 40%. Coronary artery disease: Patient has known chronic total occlusion of LAD with collaterals, presently stable and chest pain-free. Lexiscan nuclear stress test in March 2020 showed large inferior infarct without any significant ischemia. Continue current secondary prevention measures. Sick sinus syndrome s/p permanent pacemaker implantation with more recent generator change. Recent device check showed normal function. He denied any syncope or near syncope. Permanent atrial fibrillation: Telemetry showed demand pacing. Patient on warfarin for stroke prophylaxis. Check PT/INR. Hypertension - Controlled. Will back off on his BB. 100mg metoprolol tartrate Hyperlipidemia - Continue statin Diabetes mellitus type 2 - diet controlled, A1c previously 5.8 Severe Protein calorie malnutrition - severe given his edema and albumin. Crm Architect to see D/W RN Defer to pulmonology regarding management of acute hypoxic respiratory failure and antibiotics ONCOLOGY plan on seeing patient in follow-up as outpatient to reassess CBC and discussed results of BCR ABL FISH and JAK2 mutation testing ID CONSULT 36 min pt exam, chart review, > 50% of time spent with exam, chart review, pt care coordination Worsening interstitial changes throughout both lungs, with worsening perihilar consolidation. Findings may reflect progressive interstitial pulmonary edema or infection. CXR 09-15 long discussion with family, , 2 sons they are not sure he desires a BM BX , will cont to monitor CR 2.0 wbc 31 CAD; catheterization 08/2018 with [employer]AND[employer] SU[employer] of LAD with collaterals, which is unchanged from previous cath in 2013. clinically stable, CP free. 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 Permanent AFIB; rate controlled with BB. on warfarin for stroke prevention. 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 No chest pain little bit short of breath. Acute on chronic combined systolic and diastolic heart failure. We will diurese with intravenous Bumex. 2D echo in September 2019 showed LVEF 40%. Coronary artery disease: Patient has known chronic total occlusion of LAD with collaterals, presently stable and chest pain-free. Lexiscan nuclear stress test in March 2020 showed large inferior infarct without any significant ischemia. Continue current secondary prevention measures. Sick sinus syndrome s/p permanent pacemaker implantation with more recent generator change. Recent device check showed normal function. He denied any syncope or near syncope. Permanent atrial fibrillation: Telemetry showed demand pacing. Patient on warfarin for stroke prophylaxis. Check PT/INR. Hypertension - Controlled. Will back off on his BB. 100mg metoprolol tartrate Hyperlipidemia - Continue statin Diabetes mellitus type 2 - diet controlled, A1c previously 5.8 Severe Protein calorie malnutrition - severe given his edema and albumin. Crm Architect to see D/W RN Defer to pulmonology regarding management of acute hypoxic respiratory failure and antibiotics ONCOLOGY plan on seeing patient in follow-up as outpatient to reassess CBC and discussed results of BCR ABL FISH and JAK2 mutation testing ID CONSULT 38 min pt exam, chart review, > 50% of time spent with exam, chart review, pt care coordination Worsening interstitial changes throughout both lungs, with worsening perihilar consolidation. Findings may reflect progressive interstitial pulmonary edema or infection. CXR -09/11 long discussion with family, , 2 sons they are not sure he desires a BM BX , will cont to monitor CR 2.0 wbc 31 CAD; catheterization 08/2018 with SANDING SUPER[employer] of LAD with collaterals, which is unchanged from previous cath in 2013. clinically stable, CP free. 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 Permanent AFIB; rate controlled with BB. on warfarin for stroke prevention. 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 No chest pain little bit short of breath. Acute on chronic combined systolic and diastolic heart failure. We will diurese with intravenous Bumex. 2D echo in September 2019 showed LVEF 40%. Coronary artery disease: Patient has known chronic total occlusion of LAD with collaterals, presently stable and chest pain-free. Lexiscan nuclear stress test in March 2020 showed large inferior infarct without any significant ischemia. Continue current secondary prevention measures. Sick sinus syndrome s/p permanent pacemaker implantation with more recent generator change. Recent device check showed normal function. He denied any syncope or near syncope. Permanent atrial fibrillation: Telemetry showed demand pacing. Patient on warfarin for stroke prophylaxis. Check PT/INR. Hypertension - Controlled. Will back off on his BB. 100mg metoprolol tartrate Hyperlipidemia - Continue statin Diabetes mellitus type 2 - diet controlled, A1c previously 5.8 Severe Protein calorie malnutrition - severe given his edema and albumin. Crm Architect to see D/W RN Defer to pulmonology regarding management of acute hypoxic respiratory failure and antibiotics ONCOLOGY plan on seeing patient in follow-up as outpatient to reassess CBC and discussed results of BCR ABL FISH and JAK2 mutation testing ID CONSULT 36 min pt exam, chart review, > 50% of time spent with exam, chart review, pt care coordination Worsening interstitial changes throughout both lungs, with worsening perihilar consolidation. Findings may reflect progressive interstitial pulmonary edema or infection. CXR - Continue Merrem ( 09/10) and Zyvox,was on zosyn add micafungin 09/12 long discussion with family, , 2 sons 09-11 they are not sure he desires a BM BX , will cont to monitor CR 2.0 wbc 31 CAD; catheterization 08/2018 with SANDING SUPER[employer] of LAD with collaterals, which is unchanged from previous cath in 2013. clinically stable, CP free. 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 Permanent AFIB; rate controlled with BB. on warfarin for stroke prevention. 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 No chest pain little bit short of breath. Acute on chronic combined systolic and diastolic heart failure. We will diurese with intravenous Bumex. 2D echo in September 2019 showed LVEF 40%. Coronary artery disease: Patient has known chronic total occlusion of LAD with collaterals, presently stable and chest pain-free. Lexiscan nuclear stress test in March 2020 showed large inferior infarct without any significant ischemia. Continue current secondary prevention measures. Sick sinus syndrome s/p permanent pacemaker implantation with more recent generator change. Recent device check showed normal function. He denied any syncope or near syncope. Permanent atrial fibrillation: Telemetry showed demand pacing. Patient on warfarin for stroke prophylaxis. Check PT/INR. Hypertension - Controlled. Will back off on his BB. 100mg metoprolol tartrate Hyperlipidemia - Continue statin Diabetes mellitus type 2 - diet controlled, A1c previously 5.8 Severe Protein calorie malnutrition - severe given his edema and albumin. Crm Architect to see D/W RN Defer to pulmonology regarding management of acute hypoxic respiratory failure and antibiotics ONCOLOGY plan on seeing patient in follow-up as outpatient to reassess CBC and discussed results of BCR ABL FISH and JAK2 mutation testing ID CONSULT 37 min pt exam, chart review, > 50% of time spent with exam, chart review, pt care coordination Worsening interstitial changes throughout both lungs, with worsening perihilar consolidation. Findings may reflect progressive interstitial pulmonary edema or infection. CXR 6- Continue Merrem ( 09/10) and Zyvox,was on zosyn CONTINUE micafungin Vitals Vitals Vital Signs Date Time Temp Pulse Resp B/P (MAP) Pulse Ox O2 Delivery O2 Flow Rate FiO2 09/12/20 07:40 Room Air 09/12/20 07:00 101.3 86 20 115/62 (79) 94 101.3 Physical Exam Physical Exam GENERAL: CONFUSED male, sitting upright in chair in no acute distress. Answers only a few questions HEENT: Normocephalic, atraumatic. Oral mucosa moist. NECK: Supple. LUNGS: Mild crackles. HEART: S1, S2. Pacemaker without signs of complication. ABDOMEN: Soft, nontender, and nondistended. EXTREMITIES: No cyanosis bilateral lower extremity swelling presentNO Calf tenderness present left lower extremity MSK changes suggestive of DJD, pain in left knee, no effusion DERMATOLOGIC: Warm, dry. No generalized rash. NEUROLOGIC: Alert, awake, answers questions appropriately. PSYCHIATRIC: Calm and cooperative. General: Alert, Oriented X3, Cooperative, No acute distress Heart: Regular rate, Normal S1, Normal S2, No murmurs, Gallops Lungs: Crackles (bases ) Abdomen: Normal bowel sounds, Soft, No tenderness Extremities: No clubbing, No cyanosis, No edema, Normal pulses, No tenderness/swelling Skin: No rashes, No breakdown, No significant lesion Labs LABS Laboratory Tests Test 09/11/20 11:31 09/11/20 18:01 09/11/20 18:37 09/11/20 20:57 Glucose (Fingerstick) 80 mg/dL (70-99) 41 mg/dL (70-99) 128 mg/dL (70-99) 95 mg/dL (70-99) Test 09/12/20 03:30 09/12/20 08:29 White Blood Count 38.7 x10^3/uL (4.0-11.0) Red Blood Count 3.74 x10^6/uL (4.30-5.70) Hemoglobin 10.3 g/dL (13.0-17.5) Hematocrit 34.4 % (39.0-53.0) Mean Corpuscular Volume 92 fL (79-100) Mean Corpuscular Hemoglobin 28 pg (25-35) Mean Corpuscular Hemoglobin Concent 30 g/dL (31-37) Red Cell Distribution Width 25.0 % (11.5-14.5) Platelet Count 424 x10^3/uL (140-400) Neutrophils (%) (Auto) 86 % (31-73) Lymphocytes (%) (Auto) 7 % (24-48) Monocytes (%) (Auto) 2 % (0-9) Eosinophils (%) (Auto) 1 % (0-3) Basophils (%) (Auto) 5 % (0-3) Neutrophils # (Auto) 33.1 x10^3/uL (1.8-7.7) Lymphocytes # (Auto) 2.5 x10^3/uL (1.0-4.8) Monocytes # (Auto) 0.8 x10^3/uL (0.0-1.1) Eosinophils # (Auto) 0.3 x10^3/uL (0.0-0.7) Basophils # (Auto) 1.9 x10^3/uL (0.0-0.2) Glucose (Fingerstick) 69 mg/dL (70-99) Assessment and Plan Assessmemt and Plan Problems Medical Problems: (1) CHF (congestive heart failure) Status: Acute Comment Review of Relevant I have reviewed the following items tiffany (where applicable) has been applied. Labs Laboratory Tests Test 09/10/20 11:21 09/10/20 16:54 09/10/20 20:32 09/11/20 07:20 Glucose (Fingerstick) 142 mg/dL (70-99) 95 mg/dL (70-99) 92 mg/dL (70-99) White Blood Count 33.4 x10^3/uL (4.0-11.0) Red Blood Count 3.48 x10^6/uL (4.30-5.70) Hemoglobin 9.5 g/dL (13.0-17.5) Hematocrit 31.2 % (39.0-53.0) Mean Corpuscular Volume 90 fL (79-100) Mean Corpuscular Hemoglobin 27 pg (25-35) Mean Corpuscular Hemoglobin Concent 31 g/dL (31-37) Red Cell Distribution Width 25.5 % (11.5-14.5) Platelet Count 385 x10^3/uL (140-400) Neutrophils (%) (Auto) 86 % (31-73) Lymphocytes (%) (Auto) 4 % (24-48) Monocytes (%) (Auto) 3 % (0-9) Eosinophils (%) (Auto) 1 % (0-3) Basophils (%) (Auto) 6 % (0-3) Neutrophils # (Auto) 28.7 x10^3/uL (1.8-7.7) Lymphocytes # (Auto) 1.5 x10^3/uL (1.0-4.8) Monocytes # (Auto) 0.9 x10^3/uL (0.0-1.1) Eosinophils # (Auto) 0.4 x10^3/uL (0.0-0.7) Basophils # (Auto) 1.9 x10^3/uL (0.0-0.2) Prothrombin Time 29.0 SEC (11.7-14.0) Prothromb Time International Ratio 2.7 (0.8-1.1) Sodium Level 145 mmol/L (136-145) Potassium Level 3.3 mmol/L (3.5-5.1) Chloride Level 109 mmol/L (98-107) Carbon Dioxide Level 23 mmol/L (21-32) Anion Gap 13 (6-14) Blood Urea Nitrogen 46 mg/dL (8-26) Creatinine 1.9 mg/dL (0.7-1.3) Estimated GFR (Cockcroft-Gault) 40.7 Glucose Level 83 mg/dL (70-99) Uric Acid 13.8 mg/dL (3.5-7.2) Calcium Level 8.5 mg/dL (8.5-10.1) Test 09/11/20 08:24 09/11/20 11:31 09/11/20 18:01 09/11/20 18:37 Glucose (Fingerstick) 82 mg/dL (70-99) 80 mg/dL (70-99) 41 mg/dL (70-99) 128 mg/dL (70-99) Test 09/11/20 20:57 09/12/20 03:30 09/12/20 08:29 Glucose (Fingerstick) 95 mg/dL (70-99) 69 mg/dL (70-99) White Blood Count 38.7 x10^3/uL (4.0-11.0) Red Blood Count 3.74 x10^6/uL (4.30-5.70) Hemoglobin 10.3 g/dL (13.0-17.5) Hematocrit 34.4 % (39.0-53.0) Mean Corpuscular Volume 92 fL (79-100) Mean Corpuscular Hemoglobin 28 pg (25-35) Mean Corpuscular Hemoglobin Concent 30 g/dL (31-37) Red Cell Distribution Width 25.0 % (11.5-14.5) Platelet Count 424 x10^3/uL (140-400) Neutrophils (%) (Auto) 86 % (31-73) Lymphocytes (%) (Auto) 7 % (24-48) Monocytes (%) (Auto) 2 % (0-9) Eosinophils (%) (Auto) 1 % (0-3) Basophils (%) (Auto) 5 % (0-3) Neutrophils # (Auto) 33.1 x10^3/uL (1.8-7.7) Lymphocytes # (Auto) 2.5 x10^3/uL (1.0-4.8) Monocytes # (Auto) 0.8 x10^3/uL (0.0-1.1) Eosinophils # (Auto) 0.3 x10^3/uL (0.0-0.7) Basophils # (Auto) 1.9 x10^3/uL (0.0-0.2) Laboratory Tests Test 09/11/20 11:31 09/11/20 18:01 09/11/20 18:37 09/11/20 20:57 Glucose (Fingerstick) 80 mg/dL (70-99) 41 mg/dL (70-99) 128 mg/dL (70-99) 95 mg/dL (70-99) Test 09/12/20 03:30 09/12/20 08:29 White Blood Count 38.7 x10^3/uL (4.0-11.0) Red Blood Count 3.74 x10^6/uL (4.30-5.70) Hemoglobin 10.3 g/dL (13.0-17.5) Hematocrit 34.4 % (39.0-53.0) Mean Corpuscular Volume 92 fL (79-100) Mean Corpuscular Hemoglobin 28 pg (25-35) Mean Corpuscular Hemoglobin Concent 30 g/dL (31-37) Red Cell Distribution Width 25.0 % (11.5-14.5) Platelet Count 424 x10^3/uL (140-400) Neutrophils (%) (Auto) 86 % (31-73) Lymphocytes (%) (Auto) 7 % (24-48) Monocytes (%) (Auto) 2 % (0-9) Eosinophils (%) (Auto) 1 % (0-3) Basophils (%) (Auto) 5 % (0-3) Neutrophils # (Auto) 33.1 x10^3/uL (1.8-7.7) Lymphocytes # (Auto) 2.5 x10^3/uL (1.0-4.8) Monocytes # (Auto) 0.8 x10^3/uL (0.0-1.1) Eosinophils # (Auto) 0.3 x10^3/uL (0.0-0.7) Basophils # (Auto) 1.9 x10^3/uL (0.0-0.2) Glucose (Fingerstick) 69 mg/dL (70-99) Microbiology 09/11/20 Blood Culture - Preliminary, Resulted NO GROWTH AFTER 1 DAY Medications Current Medications Furosemide (Lasix) 40 mg 1X ONCE IVP Last administered on 09/03/20at 21:07; Start 09/03/20 at 21:00; Stop 09/03/20 at 21:01; Status DC Piperacillin Sod/ Tazobactam Sod 3.375 gm/Sodium Chloride 50 ml @ 100 mls/hr 1X ONCE IV Last administered on 09/03/20at 21:08; Start 09/03/20 at 21:00; Stop 09/03/20 at 21:29; Status DC Ondansetron HCl (Zofran) 4 mg PRN Q8HRS PRN IV NAUSEA/VOMITING; Start 09/03/20 at 21:00; Stop 09/04/20 at 20:59; Status DC Morphine Sulfate (Morphine Sulfate) 2 mg PRN Q2HR PRN IV PAIN; Start 09/03/20 at 21:00; Stop 09/04/20 at 20:59; Status DC Acetaminophen (Tylenol) 650 mg PRN Q4HRS PRN PO FEVER > 100.3'F; Start 09/03/20 at 21:00; Stop 09/04/20 at 20:59; Status DC Ascorbic Acid (Vitamin C) 250 mg DAILY PO Last administered on 09/11/20at 09:02; Start 09/04/20 at 09:00 Aspirin (Aspirin Chewable) 81 mg BID PO Last administered on 09/11/20at 20:29; Start 09/04/20 at 09:00 Atorvastatin Calcium (Lipitor) 40 mg DAILY PO Last administered on 09/11/20at 09:02; Start 09/04/20 at 09:00 Bumetanide (Bumex) 1 mg BID92 PO ; Start 09/04/20 at 09:00; Stop 09/04/20 at 07:53; Status DC Digoxin (Lanoxin) 125 mcg DAILY PO ; Start 09/04/20 at 09:00; Stop 09/04/20 at 07:47; Status DC Docusate Sodium (Colace) 100 mg TID PO Last administered on 09/11/20at 20:28; Start 09/04/20 at 09:00 Acetaminophen/ Hydrocodone Bitart (Lortab 5/325) 1 tab PRN Q6HRS PRN PO PAIN Last administered on 09/11/20at 03:57; Start 09/03/20 at 22:15 Metoprolol Tartrate (Lopressor) 100 mg DAILY PO ; Start 09/04/20 at 09:00; Stop 09/04/20 at 07:29; Status DC Warfarin Sodium (Coumadin Per Pharmacy) 1 each PRN DAILY PRN MC SEE COMMENTS Last administered on 09/11/20at 11:38; Start 09/03/20 at 22:15 Piperacillin Sod/ Tazobactam Sod (Zosyn Per Pharmacy) 1 each PRN DAILY PRN MC SEE COMMENTS; Start 09/03/20 at 22:15; Status Cancel Albuterol/ Ipratropium (Duoneb) 3 ml RTQID NEB Last administered on 09/10/20 20:11; Start 09/04/20 at 08:00; Stop 09/12/20 at 08:01; Status DC Prednisone (Prednisone) 40 mg 1X ONCE PO Last administered on 09/03/20at 22:41; Start 09/03/20 at 22:15; Stop 09/03/20 at 22:21; Status DC Insulin Human Lispro (HumaLOG) 0-7 UNITS TIDWMEALS SQ Last administered on 09/04/20at 12:32; Start 09/04/20 at 08:00 Dextrose (Dextrose 50%-Water Syringe) 12.5 gm PRN Q15MIN PRN IV SEE COMMENTS Last administered on 09/11/20at 18:11; Start 09/03/20 at 22:15 Piperacillin Sod/ Tazobactam Sod 3.375 gm/Sodium Chloride 50 ml @ 100 mls/hr Q6HRS IV Last administered on 09/10/20at 05:09; Start 09/04/20 at 06:00; Stop 09/10/20 at 11:42; Status DC Warfarin Sodium (Coumadin - No Dose Today) 1 each 1X WARF ONCE MC Last administered on 09/04/20at 16:00; Start 09/04/20 at 16:00; Stop 09/04/20 at 16:01; Status DC Bumetanide (Bumex) 2.5 mg [id number] IV Last administered on 09/04/20at 15:23; Start 09/04/20 at 09:00; Stop 09/05/20 at 07:46; Status DC Lactobacillus Rhamnosus (Culturelle) 1 cap BID PO Last administered on 09/11/20 20:29; Start 09/04/20 at 21:00 Tamsulosin HCl (Flomax) 0.4 mg QHS PO Last administered on 09/11/20 20:30; Start 09/05/20 at 21:00 Bumetanide (Bumex) 1 mg [id number] IV Last administered on 09/11/20at 14:37; Start 09/05/20 at 09:00 Potassium Bicarbonate (Potassium Effervescent Tablet) 40 meq 1X ONCE PO Last administered on 09/05/20at 09:06; Start 09/05/20 at 08:00; Stop 09/05/20 at 08:01; Status DC Warfarin Sodium (Coumadin - No Dose Today) 1 each 1X WARF ONCE MC Last administered on 09/05/20at 15:58; Start 09/05/20 at 16:00; Stop 09/05/20 at 16:01; Status DC Warfarin Sodium (Coumadin - No Dose Today) 1 each 1X WARF ONCE MC Last administered on 09/06/20at 16:00; Start 09/06/20 at 16:00; Stop 09/06/20 at 16:01; Status DC Warfarin Sodium (Coumadin - No Dose Today) 1 each 1X WARF ONCE MC ; Start 09/07/20 at 16:00; Stop 09/07/20 at 16:01; Status DC Bisacodyl (Dulcolax Supp) 10 mg 1X ONCE [place] ; Start 09/07/20 at 13:00; Stop 09/07/20 at 18:32; Status DC Bisacodyl (Dulcolax Supp) 10 mg PRN DAILY PRN [place] CONSTIPATION Last administered on 09/08/20at 08:29; Start 09/07/20 at 18:45 Warfarin Sodium (Coumadin - No Dose Today) 1 each 1X WARF ONCE MC ; Start 09/08/20 at 16:00; Stop 09/08/20 at 16:01; Status Cancel Warfarin Sodium (Coumadin) 4 mg 1X WARF ONCE PO Last administered on 09/08/20at 17:29; Start 09/08/20 at 16:00; Stop 09/08/20 at 16:01; Status DC Warfarin Sodium (Coumadin) 4 mg 1X WARF ONCE PO Last administered on 09/09/20at 16:53; Start 09/09/20 at 16:00; Stop 09/09/20 at 16:01; Status DC Potassium Chloride (Klor-Con) 20 meq 1X ONCE PO Last administered on 09/09/20at 09:32; Start 09/09/20 at 10:00; Stop 09/09/20 at 10:01; Status DC Linezolid (Zyvox) 600 mg BID PO Last administered on 09/11/20at 20:29; Start 09/09/20 at 12:00 Warfarin Sodium (Coumadin) 4 mg 1X WARF ONCE PO Last administered on 09/10/20at 16:47; Start 09/10/20 at 16:00; Stop 09/10/20 at 16:01; Status DC Meropenem 500 mg/ Sodium Chloride 50 ml @ 100 mls/hr Q8HRS IV Last administere d on 09/12/20at 05:47; Start 09/10/20 at 14:00 Furosemide (Lasix) 20 mg DAILY IVP ; Start 09/11/20 at 09:00; Status UNV Phenyleph/Shark Oil/Min Oil/Petrol (Preparation H) 1 mihaela PRN QID PRN RC RECTAL PAIN; Start 09/10/20 at 19:15 Micafungin Sodium 100 mg/Dextrose 100 ml @ 100 mls/hr Q24H IV Last administered on 09/11/20at 11:21; Start 09/11/20 at 10:00 Warfarin Sodium (Coumadin) 4 mg 1X WARF ONCE PO ; Start 09/11/20 at 16:00; Stop 09/11/20 at 16:01; Status DC Dextrose 1,000 ml @ 25 mls/hr Q24H IV Last administered on 09/11/20at 20:29; Start 09/11/20 at 19:15 Warfarin Sodium (Coumadin) 3 mg 1X WARF ONCE PO ; Start 09/12/20 at 16:00; Stop 09/12/20 at 16:01 Albuterol Sulfate (Ventolin Neb Soln) 2.5 mg PRN Q6HRS PRN NEB SHORTNESS OF BREATH; Start 09/12/20 at 08:15 Active Scripts Active [place] 5-325 Tablet (Acetaminophen/Hydrocodone Bitart) 1 Each Tablet 7.5 Mg PO PRN Q6HRS PRN 6 Days LAST DOSE GIVEN: Reported Warfarin Sodium 2 Mg Tablet 4 Mg PO Warfarin Sodium 2 Mg Tablet 6 Mg PO QMTH Bumetanide 1 Mg Tablet 1 Mg PO BID Colace (Docusate Sodium) 100 Mg Capsule 1 Cap PO TID Metamucil Powder (Psyllium Seed (with Sugar)) 575 Gm Powder 575 Gm PO DAILY Atorvastatin Calcium 40 Mg Tablet 1 Tab PO DAILY Metoprolol Tartrate 100 Mg Tablet 100 Mg PO DAILY Tamsulosin Hcl 0.4 Mg Cap.er.24h 0.4 Mg PO HS DAILY Vitamin C (Ascorbic Acid) 500 Mg Tablet 250 Mg PO DAILY Aspirin 81 Mg Tab.chew 81 Mg PO BID Lanoxin (Digoxin) 125 Mcg Tablet 125 Mcg PO DAILY Vitals/I & O Vital Sign - Last 24 Hours 09/11/20 09/11/20 09/11/20 09/11/20 15:00 19:00 20:15 21:19 Temp 98.2 102.9 98.4 98.2 102.9 98.4 Pulse 68 93 Resp 20 20 B/P (MAP) 120/61 (80) 112/51 (71) Pulse Ox 94 92 O2 Delivery Room Air Room Air Room Air 09/11/20 09/12/20 09/12/20 09/12/20 23:00 03:00 07:00 07:40 Temp 98.4 98.0 101.3 98.4 98.0 101.3 Pulse 81 96 86 Resp 18 18 20 B/P (MAP) 109/52 (71) 123/66 (85) 115/62 (79) Pulse Ox 91 94 94 O2 Delivery Room Air Room Air Room Air Room Air Intake and Output 09/11/20 09/11/20 09/12/20 15:00 23:00 07:00 Intake Total 400 ml 100 ml 190 ml Balance 400 ml 100 ml 190 ml Justicifation of Admission Dx: Justifications for Admission: Justification of Admission Dx: Yes JAYLIN LAGUERRE MD Sep 12, 2020 11:13
[2020-09-12] MEDS: MICAFUNGIN 100 MG in IV DEXTROSE 5% 100ML 100 ML IV SCH (11:28)
--- NOTE | 2020-09-12 13:03 | NUR ---
Pharmacy Warfarin Dosing Note S:Pharmacy consulted to assist with anticoagulation therapy started with target INR: 2 -3 O:MAMTA MACIAS is a 89 year old M with Atrial Fibrillation LABS: Last INR: 2.7 Last HGB: 9.4 Last HCT: 30.9 Last PLT: 426 Last dose of 4 mg given on 09/09/20 at 1653 Previous Regimen: 6 mg Mon,Th; 4 mg all other days Vitamin K given: Drug Interaction Changes: New Interacting Drug Ongoing Drug Interactions: ZOSYN A:INR of 2.7 is within desired range. Target range for this patient is: 2 -3 P: Warfarin dose: 3 mg Today at 1600 Bridge Therapy: None Next INR due IN AM Pharmacy anticoagulation service will continue to follow. YANETH GONZALEZ RP, 09/12/20 1306
[2020-09-12 15:00] VITALS: BP 118/59
[2020-09-12] MEDS ORDERED: WARFARIN 3 MG TABLET. PO ONE (16:00)
[2020-09-12] MEDS: IV DEXTROSE 5% 1,000 ML IV SCH (17:42)
[2020-09-12 19:00] VITALS: BP 111/64
[2020-09-12] MEDS: DEXTROSE 50% 25 GM / 50ML DISP.SYRIN. IV PRN (20:55)
[2020-09-12] MEDS: TAMSULOSIN 0.4 MG CAP.ER.24H. PO SCH (21:09)
[2020-09-12 23:00] VITALS: BP 130/51
[2020-09-13 03:00] VITALS: BP 130/44
[2020-09-13] MEDS: MEROPENEM 500 MG in IV NORMAL SALINE 50ML 50 ML IV SCH ×3 (05:09→22:06)
[2020-09-13 07:00] VITALS: BP 105/50
[2020-09-13 07:39] LABS: BASO # 2.3 x10^3/uL (0.0-0.2); BASO % 5 % (0-3); EOS # 0.2 x10^3/uL (0.0-0.7); EOS % 0 % (0-3); HEMATOCRIT 33.9 % (39.0-53.0); HEMOGLOBIN 10.2 g/dL (13.0-17.5); LYMPH # 1.7 x10^3/uL (1.0-4.8); LYMPH % 4 % (24-48); MEAN CORPUSCULAR HEMOGLOBIN 27 pg (25-35); MEAN CORPUSCULAR HGB CONC 30 g/dL (31-37); MEAN CORPUSCULAR VOLUME 91 fL (79-100); MONO # 0.6 x10^3/uL (0.0-1.1); MONO % 1 % (0-9); NEUT # 38.8 x10^3/uL (1.8-7.7); NEUT % 89 % (31-73); PLATELET COUNT 387 x10^3/uL (140-400); RED BLOOD COUNT 3.73 x10^6/uL (4.30-5.70); RED CELL DISTRIBUTION WIDTH 25.2 % (11.5-14.5)
[2020-09-13 07:43] LABS: PROTHROMBIN TIME PATIENT 25.2 SEC (11.7-14.0)
[2020-09-13 07:49] LABS: WHITE BLOOD COUNT 43.6 x10^3/uL (4.0-11.0)
[2020-09-13 07:59] LABS: ALBUMIN 1.7 g/dL (3.4-5.0); ALBUMIN/GLOBULIN RATIO 0.5 (1.0-1.7); CALCIUM 8.5 mg/dL (8.5-10.1); CREATININE 1.8 mg/dL (0.7-1.3); GFR 43.3; POTASSIUM 3.3 mmol/L (3.5-5.1); TOTAL BILIRUBIN 1.7 mg/dL (0.2-1.0); TOTAL PROTEIN 5.3 g/dL (6.4-8.2)
[2020-09-13] MEDS: INSULIN LISPRO 300 UNITS/3 ML VIAL. SQ SCH ×3 (08:00→17:00)
--- NOTE | 2020-09-13 08:36 | PDOC ---
[facility] PROGRESS NOTE Date of Service DOS: DATE: 09/13/20 TIME: 08:14 Chief Complaint Chief Complaint impression Acute on chronic combined systolic and diastolic heart failure. We will diurese with intravenous Bumex. 2D echo in September 2019 showed LVEF 40%. Coronary artery disease: Patient has known chronic total occlusion of LAD with collaterals, presently stable and chest pain-free. Lexiscan nuclear stress test in March 2020 showed large inferior infarct without any significant ischemia. Continue current secondary prevention measures. Sick sinus syndrome s/p permanent pacemaker implantation with more recent generator change. Recent device check showed normal function. He denied any syncope or near syncope. Permanent atrial fibrillation: Telemetry showed demand pacing. Patient on warfarin for stroke prophylaxis. Check PT/INR. Hypertension - Controlled. Will back off on his BB. He is actually on 100mg metoprolol tartrate Hyperlipidemia - Continue statin Diabetes mellitus type 2 - diet controlled, A1c previously 5.8 Severe Protein calorie malnutrition - severe given his edema and albumin. 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 Normal LV systolic function. EF 60% plan FEN - Cardiac ADA diet PPX - warfarin CODE - FULL Dispo - inpatient CVC for CHF exacerbation Hyperlipidemia - Continue statin Diabetes mellitus type 2 - diet controlled, A1c previously 5.8 Severe Protein calorie malnutrition - severe given his edema and albumin. Diet ician to see D/W RN Defer to pulmonology regarding management of acute hypoxic respiratory failure and antibiotics ONCOLOGY plan on seeing patient in follow-up as outpatient to reassess CBC and discussed results of BCR ABL FISH and JAK2 mutation testing ID CONSULT 37 min pt exam, chart review, > 50% of time spent with exam, chart review, pt care coordination Worsening interstitial changes throughout both lungs, with worsening perihilar consolidation. Findings may reflect progressive interstitial pulmonary edema or infection. CXR 6- Continue Merrem ( 09/10) and Zyvox,was on zosyn CONTINUE micafungin History of Present Illness History of Present Illness Mr Rivero is an 89yo M w/ PMHx DM2, HLD, HTN, afib, SSS s/p PPM, CAD, chronic systolic CHF who presented to ED c/o for weakness and dyspnea. Also complains of dyspnea worsening over weeks, with a few days of noted LE edema is worse with cough in the morning that is productive of white sputum. he has cough at times, He denied any chest pain, palpitations or syncope. Given 1 dose iv lasix in ED 40mg, < 500 uop after, still feeling short of breath. He follows with Dr. Santoyo and has been recently changed to Bumex last month. Chest radiograph with interstitial edema. Labs with WBC 27.3, Hb 10.3, platelets 454, NA 145, K4.7, BUN 58, CR 2.1, INR 3.2 TSH 5.5, digoxin level 2.2, albumin 2.7, bilirubin 2.2, AST 56 ALT 12 alkaline phosphatase 138 NT proBNP 31,348 Admitted for further treatment. 09/04: Afebrile. WBC still high. Reasonably good urine output. A little confused Febrile. 1.3 L urine output. Still with very swollen lower extremities. No chest pain little bit short of breath. Not on O2 today. 09-06 Still with very swollen lower extremities. No chest pain little bit short of breath. Acute on chronic combined systolic and diastolic heart failure. We will diurese with intravenous Bumex. 2D echo in September 2019 showed LVEF 40%. Coronary artery disease: Patient has known chronic total occlusion of LAD with collaterals, presently stable and chest pain-free. Lexiscan nuclear stress test in March 2020 showed large inferior infarct without any significant ischemia. Continue current secondary prevention measures. Sick sinus syndrome s/p permanent pacemaker implantation with more recent generator change. Recent device check showed normal function. He denied any syncope or near syncope. Permanent atrial fibrillation: Telemetry showed demand pacing. Patient on warfarin for stroke prophylaxis. Check PT/INR. Hypertension - Controlled. Will back off on his BB. He is actually on 100mg metoprolol tartrate Hyperlipidemia - Continue statin Diabetes mellitus type 2 - diet controlled, A1c previously 5.8 Severe Protein calorie malnutrition - severe given his edema and albumin. Quality Improvement Analyst to see D/W RN 09/07 CR 2.2 LESS swollen lower extremities. No chest pain little bit short of breath. Acute on chronic combined systolic and diastolic heart failure. We will diurese with intravenous Bumex. 2D echo in September 2019 showed LVEF 40%. Coronary artery disease: Patient has known chronic total occlusion of LAD with collaterals, presently stable and chest pain-free. Lexiscan nuclear stress test in March 2020 showed large inferior infarct without any significant ischemia. Continue current secondary prevention measures. Sick sinus syndrome s/p permanent pacemaker implantation with more recent generator change. Recent device check showed normal function. He denied any syncope or near syncope. Permanent atrial fibrillation: Telemetry showed demand pacing. Patient on warfarin for stroke prophylaxis. Check PT/INR. Hypertension - Controlled. Will back off on his BB. He is actually on 100mg metoprolol tartrate Hyperlipidemia - Continue statin Diabetes mellitus type 2 - diet controlled, A1c previously 5.8 Severe Protein calorie malnutrition - severe given his edema and albumin. Quality Improvement Analyst to see D/W RN 09/08 CR 2.0 wbc 30.3 CAD; catheterization 08/2018 with COMMERCIAL PLUMBER of LAD with collaterals, which is unchanged from previous cath in 2013. clinically stable, CP free. 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 Permanent AFIB; rate controlled with BB. on warfarin for stroke prevention. 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 No chest pain little bit short of breath. Acute on chronic combined systolic and diastolic heart failure. We will diurese with intravenous Bumex. 2D echo in September 2019 showed LVEF 40%. Coronary artery disease: Patient has known chronic total occlusion of LAD with collaterals, presently stable and chest pain-free. Lexiscan nuclear stress test in March 2020 showed large inferior infarct without any significant ischemia. Continue current secondary prevention measures. Sick sinus syndrome s/p permanent pacemaker implantation with more recent generator change. Recent device check showed normal function. He denied any syncope or near syncope. Permanent atrial fibrillation: Telemetry showed demand pacing. Patient on warfarin for stroke prophylaxis. Check PT/INR. Hypertension - Controlled. Will back off on his BB. He is actually on 100mg metoprolol tartrate Hyperlipidemia - Continue statin Diabetes mellitus type 2 - diet controlled, A1c previously 5.8 Severe Protein calorie malnutrition - severe given his edema and albumin. Quality Improvement Analyst to see D/W RN 37 min pt exam, chart review, > 50% of time spent with exam, chart review, pt care coordination 09/09 CR 2.0 wbc 30.3 CAD; catheterization 08/2018 with COMMERCIAL PLUMBER of LAD with collaterals, which is unchanged from previous cath in 2013. clinically stable, CP free. 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 Permanent AFIB; rate controlled with BB. on warfarin for stroke prevention. 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 No chest pain little bit short of breath. Acute on chronic combined systolic and diastolic heart failure. We will diurese with intravenous Bumex. 2D echo in September 2019 showed LVEF 40%. Coronary artery disease: Patient has known chronic total occlusion of LAD with collaterals, presently stable and chest pain-free. Lexiscan nuclear stress test in March 2020 showed large inferior infarct without any significant ischemia. Continue current secondary prevention measures. Sick sinus syndrome s/p permanent pacemaker implantation with more recent generator change. Recent device check showed normal function. He denied any syncope or near syncope. Permanent atrial fibrillation: Telemetry showed demand pacing. Patient on warfarin for stroke prophylaxis. Check PT/INR. Hypertension - Controlled. Will back off on his BB. 100mg metoprolol tartrate Hyperlipidemia - Continue statin Diabetes mellitus type 2 - diet controlled, A1c previously 5.8 Severe Protein calorie malnutrition - severe given his edema and albumin. Quality Improvement Analyst to see D/W RN Defer to pulmonology regarding management of acute hypoxic respiratory failure and antibiotics ONCOLOGY plan on seeing patient in follow-up as outpatient to reassess CBC and discussed results of BCR ABL FISH and JAK2 mutation testing ID CONSULT 36 min pt exam, chart review, > 50% of time spent with exam, chart review, pt care coordination Worsening interstitial changes throughout both lungs, with worsening perihilar consolidation. Findings may reflect progressive interstitial pulmonary edema or infection. CXR 09-15 long discussion with family, , 2 sons they are not sure he desires a BM BX , will cont to monitor CR 2.0 wbc 31 CAD; catheterization 08/2018 with COMMERCIAL PLUMBER of LAD with collaterals, which is unchanged from previous cath in 2013. clinically stable, CP free. 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 Permanent AFIB; rate controlled with BB. on warfarin for stroke prevention. 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 No chest pain little bit short of breath. Acute on chronic combined systolic and diastolic heart failure. We will diurese with intravenous Bumex. 2D echo in September 2019 showed LVEF 40%. Coronary artery disease: Patient has known chronic total occlusion of LAD with collaterals, presently stable and chest pain-free. Lexiscan nuclear stress test in March 2020 showed large inferior infarct without any significant ischemia. Continue current secondary prevention measures. Sick sinus syndrome s/p permanent pacemaker implantation with more recent gene rator change. Recent device check showed normal function. He denied any syncope or near syncope. Permanent atrial fibrillation: Telemetry showed demand pacing. Patient on warfarin for stroke prophylaxis. Check PT/INR. Hypertension - Controlled. Will back off on his BB. 100mg metoprolol tartrate Hyperlipidemia - Continue statin Diabetes mellitus type 2 - diet controlled, A1c previously 5.8 Severe Protein calorie malnutrition - severe given his edema and albumin. Quality Improvement Analyst to see D/W RN Defer to pulmonology regarding management of acute hypoxic respiratory failure and antibiotics ONCOLOGY plan on seeing patient in follow-up as outpatient to reassess CBC and discussed results of BCR ABL FISH and JAK2 mutation testing ID CONSULT 38 min pt exam, chart review, > 50% of time spent with exam, chart review, pt care coordination Worsening interstitial changes throughout both lungs, with worsening perihilar consolidation. Findings may reflect progressive interstitial pulmonary edema or infection. CXR -09/11 long discussion with family, , 2 sons they are not sure he desires a BM BX , will cont to monitor CR 2.0 wbc 31 CAD; catheterization 08/2018 with COMMERCIAL PLUMBER of LAD with collaterals, which is unchanged from previous cath in 2013. clinically stable, CP free. 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 Permanent AFIB; rate controlled with BB. on warfarin for stroke prevention. 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 No chest pain little bit short of breath. Acute on chronic combined systolic and diastolic heart failure. We will diurese with intravenous Bumex. 2D echo in September 2019 showed LVEF 40%. Coronary artery disease: Patient has known chronic total occlusion of LAD with collaterals, presently stable and chest pain-free. Lexiscan nuclear stress test in March 2020 showed large inferior infarct without any significant ischemia. Continue current secondary prevention measures. Sick sinus syndrome s/p permanent pacemaker implantation with more recent generator change. Recent device check showed normal function. He denied any syncope or near syncope. Permanent atrial fibrillation: Telemetry showed demand pacing. Patient on warfarin for stroke prophylaxis. Check PT/INR. Hypertension - Controlled. Will back off on his BB. 100mg metoprolol tartrate Hyperlipidemia - Continue statin Diabetes mellitus type 2 - diet controlled, A1c previously 5.8 Severe Protein calorie malnutrition - severe given his edema and albumin. Quality Improvement Analyst to see D/W RN Defer to pulmonology regarding management of acute hypoxic respiratory failure and antibiotics ONCOLOGY plan on seeing patient in follow-up as outpatient to reassess CBC and discussed results of BCR ABL FISH and JAK2 mutation testing ID CONSULT 36 min pt exam, chart review, > 50% of time spent with exam, chart review, pt care coordination Worsening interstitial changes throughout both lungs, with worsening perihilar consolidation. Findings may reflect progressive interstitial pulmonary edema or infection. CXR - Continue Merrem ( 09/10) and Zyvox,was on zosyn add micafungin 09/12 long discussion with family, , 2 sons 09-11 they are not sure he desires a BM BX , will cont to monitor CR 2.0 wbc 31 CAD; catheterization 08/2018 with COMMERCIAL PLUMBER of LAD with collaterals, which is unchanged from previous cath in 2013. clinically stable, CP free. 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 Permanent AFIB; rate controlled with BB. on warfarin for stroke prevention. 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 No chest pain little bit short of breath. Acute on chronic combined systolic and diastolic heart failure. We will diurese with intravenous Bumex. 2D echo in September 2019 showed LVEF 40%. Coronary artery disease: Patient has known chronic total occlusion of LAD with collaterals, presently stable and chest pain-free. Lexiscan nuclear stress test in March 2020 showed large inferior infarct without any significant ischemia. Continue current secondary prevention measures. Sick sinus syndrome s/p permanent pacemaker implantation with more recent gener ator change. Recent device check showed normal function. He denied any syncope or near syncope. Permanent atrial fibrillation: Telemetry showed demand pacing. Patient on warfarin for stroke prophylaxis. Check PT/INR. Hypertension - Controlled. Will back off on his BB. 100mg metoprolol tartrate Hyperlipidemia - Continue statin Diabetes mellitus type 2 - diet controlled, A1c previously 5.8 Severe Protein calorie malnutrition - severe given his edema and albumin. Quality Improvement Analyst to see D/W RN Defer to pulmonology regarding management of acute hypoxic respiratory failure and antibiotics ONCOLOGY plan on seeing patient in follow-up as outpatient to reassess CBC and discussed results of BCR ABL FISH and JAK2 mutation testing ID CONSULT 37 min pt exam, chart review, > 50% of time spent with exam, chart review, pt care coordination Worsening interstitial changes throughout both lungs, with worsening perihilar consolidation. Findings may reflect progressive interstitial pulmonary edema or infection. CXR 6- Continue Merrem ( 09/10) and Zyvox,was on zosyn CONTINUE micafungin 09/13 Afebrile overnight, currently breathing on room air. WBC 43.6 today. Chest x- ray showing left lower lobe pneumonia as possible source of leukocytosis. We will continue treatment with Zosyn, Zyvox, and micafungin. Repeat urinalysis and urine culture pending. Bilateral lower extremity ultrasounds negative for DVT. Discussed with (POOL), who is opting to defer outpatient bone marrow biopsy and further work-up for possible leukemia. She is preferring instead to proceed with medical management. Discussed with DPOA and son about CODE STATUS, they are currently undecided and will revisit this question at a later time. Charts, labs, imaging reviewed, and discussed with RN. Vitals/I&O Vitals/I&O: Vital Signs Date Time Temp Pulse Resp B/P (MAP) Pulse Ox O2 Delivery O2 Flow Rate FiO2 09/13/20 03:00 99.8 78 17 130/44 (72) 95 Room Air 99.8 I & O 09/12/20 09/12/20 09/13/20 15:00 23:00 07:00 Intake Total 1300 ml 60 ml 170 ml Balance 1300 ml 60 ml 170 ml Physical Exam Physical Exam: GENERAL: CONFUSED male, sitting upright in chair in no acute distress. Answers only a few questions HEENT: Normocephalic, atraumatic. Oral mucosa moist. NECK: Supple. LUNGS: Mild crackles. HEART: S1, S2. Pacemaker without signs of complication. ABDOMEN: Soft, nontender, and nondistended. EXTREMITIES: No cyanosis bilateral lower extremity swelling present. NO Calf tenderness present left lower extremity MSK changes suggestive of DJD, pain in left knee, no effusion DERMATOLOGIC: Warm, dry. No generalized rash. NEUROLOGIC: Alert, awake, answers questions appropriately. PSYCHIATRIC: Calm and cooperative. General: Alert, Cooperative, No acute distress Heart: Normal S1, Normal S2, No murmurs Lungs: Crackles (bases ) Abdomen: Normal bowel sounds, Soft, No tenderness Extremities: No clubbing, No cyanosis Skin: No rashes, No breakdown Labs Labs: Laboratory Tests Test 09/12/20 08:29 09/12/20 11:50 09/12/20 17:10 09/12/20 20:53 Glucose (Fingerstick) 69 mg/dL (70-99) 83 mg/dL (70-99) 73 mg/dL (70-99) 64 mg/dL (70-99) Test 09/12/20 21:10 09/13/20 04:47 09/13/20 06:40 Glucose (Fingerstick) 107 mg/dL (70-99) 82 mg/dL (70-99) White Blood Count 43.6 x10^3/uL (4.0-11.0) Red Blood Count 3.73 x10^6/uL (4.30-5.70) Hemoglobin 10.2 g/dL (13.0-17.5) Hematocrit 33.9 % (39.0-53.0) Mean Corpuscular Volume 91 fL (79-100) Mean Corpuscular Hemoglobin 27 pg (25-35) Mean Corpuscular Hemoglobin Concent 30 g/dL (31-37) Red Cell Distribution Width 25.2 % (11.5-14.5) Platelet Count 387 x10^3/uL (140-400) Neutrophils (%) (Auto) 89 % (31-73) Lymphocytes (%) (Auto) 4 % (24-48) Monocytes (%) (Auto) 1 % (0-9) Eosinophils (%) (Auto) 0 % (0-3) Basophils (%) (Auto) 5 % (0-3) Neutrophils # (Auto) 38.8 x10^3/uL (1.8-7.7) Lymphocytes # (Auto) 1.7 x10^3/uL (1.0-4.8) Monocytes # (Auto) 0.6 x10^3/uL (0.0-1.1) Eosinophils # (Auto) 0.2 x10^3/uL (0.0-0.7) Basophils # (Auto) 2.3 x10^3/uL (0.0-0.2) Prothrombin Time 25.2 SEC (11.7-14.0) Prothromb Time International Ratio 2.3 (0.8-1.1) Sodium Level 145 mmol/L (136-145) Potassium Level 3.3 mmol/L (3.5-5.1) Chloride Level 108 mmol/L (98-107) Carbon Dioxide Level 22 mmol/L (21-32) Anion Gap 15 (6-14) Blood Urea Nitrogen 55 mg/dL (8-26) Creatinine 1.8 mg/dL (0.7-1.3) Estimated GFR (Cockcroft-Gault) 43.3 BUN/Creatinine Ratio 31 (6-20) Glucose Level 115 mg/dL (70-99) Calcium Level 8.5 mg/dL (8.5-10.1) Total Bilirubin 1.7 mg/dL (0.2-1.0) Aspartate Amino Transf (AST/SGOT) 34 U/L (15-37) Alanine Aminotransferase (ALT/SGPT) 7 U/L (16-63) Alkaline Phosphatase 180 U/L (46-116) Total Protein 5.3 g/dL (6.4-8.2) Albumin 1.7 g/dL (3.4-5.0) Albumin/Globulin Ratio 0.5 (1.0-1.7) Assessment and Plan Assessmemt and Plan Problems Medical Problems: (1) CHF (congestive heart failure) Status: Acute Comment Review of Relevant I have reviewed the following items tiffany (where applicable) has been applied. Justifications for Admission Other Justification ANEESH PRABHAKAR MD Sep 13, 2020 08:36
--- NOTE | 2020-09-13 08:43 | RAD ---
EXAMINATION: Chest radiograph. VIEWS: Single view COMPARISON: 09/11/2020 INDICATION:89 years, Male, pneumonia. FINDINGS: Stable enlarged cardiomediastinal silhouette. Similar nonenlarged right pulmonary artery. [address] left lung base emphysematous bullae. Additional, moderate pulmonary emphysema in the upper lungs. Left retrocardiac patchy airspace opacity, essentially unchanged since prior exam. Right lung base a telectatic changes. Diffuse reticular opacities throughout both lungs. Left chest wall pacemaker graeme ce remain unchanged. Similar small bilateral pleural effusions. No pneumothorax. No acute osseous pro cess. IMPRESSION: 1. Similar left basilar atelectatic changes, aspiration or pneumonia. 2. Stable small bilateral pleural effusions. 3. Pulmonary vascular congestion, without overt edema. 4. Stable cardiomegaly with enlarged right pulmonary artery compatible with pulmonary hypertension. Electronically signed by: Landon Arguello MD (09/13/2020 8:41 AM) [id number]
--- NOTE | 2020-09-13 08:59 | PDOC ---
Infectious Disease Note Subjective Subjective pt continues to have off and on fever, on broad coverage, likely non infection related ( leukemia possibly) ROS ROS no n/v/d/sob Vital Sign Vital Signs Vital Signs Date Time Temp Pulse Resp B/P (MAP) Pulse Ox O2 Delivery O2 Flow Rate FiO2 09/13/20 07:00 97.6 87 17 105/50 (68) 97 Room Air 97.6 Physical Exam PHYSICAL EXAM GENERAL: CONFUSED male, sitting upright in chair in no acute distress. Answers only a few questions HEENT: Normocephalic, atraumatic. Oral mucosa moist. NECK: Supple. LUNGS: Mild crackles. HEART: S1, S2. Pacemaker without signs of complication. ABDOMEN: Soft, nontender, and nondistended. EXTREMITIES: No cyanosis bilateral lower extremity swelling present. NO Calf tenderness present left lower extremity MSK changes suggestive of DJD, pain in left knee, no effusion DERMATOLOGIC: Warm, dry. No generalized rash. NEUROLOGIC: Alert, awake, answers questions appropriately. PSYCHIATRIC: Calm and cooperative. Labs Lab Laboratory Tests Test 09/12/20 11:50 09/12/20 17:10 09/12/20 20:53 09/12/20 21:10 Glucose (Fingerstick) 83 mg/dL (70-99) 73 mg/dL (70-99) 64 mg/dL (70-99) 107 mg/dL (70-99) Test 09/13/20 04:47 09/13/20 06:40 09/13/20 08:12 Glucose (Fingerstick) 82 mg/dL (70-99) 103 mg/dL (70-99) White Blood Count 43.6 x10^3/uL (4.0-11.0) Red Blood Count 3.73 x10^6/uL (4.30-5.70) Hemoglobin 10.2 g/dL (13.0-17.5) Hematocrit 33.9 % (39.0-53.0) Mean Corpuscular Volume 91 fL (79-100) Mean Corpuscular Hemoglobin 27 pg (25-35) Mean Corpuscular Hemoglobin Concent 30 g/dL (31-37) Red Cell Distribution Width 25.2 % (11.5-14.5) Platelet Count 387 x10^3/uL (140-400) Neutrophils (%) (Auto) 89 % (31-73) Lymphocytes (%) (Auto) 4 % (24-48) Monocytes (%) (Auto) 1 % (0-9) Eosinophils (%) (Auto) 0 % (0-3) Basophils (%) (Auto) 5 % (0-3) Neutrophils # (Auto) 38.8 x10^3/uL (1.8-7.7) Lymphocytes # (Auto) 1.7 x10^3/uL (1.0-4.8) Monocytes # (Auto) 0.6 x10^3/uL (0.0-1.1) Eosinophils # (Auto) 0.2 x10^3/uL (0.0-0.7) Basophils # (Auto) 2.3 x10^3/uL (0.0-0.2) Prothrombin Time 25.2 SEC (11.7-14.0) Prothromb Time International Ratio 2.3 (0.8-1.1) Sodium Level 145 mmol/L (136-145) Potassium Level 3.3 mmol/L (3.5-5.1) Chloride Level 108 mmol/L (98-107) Carbon Dioxide Level 22 mmol/L (21-32) Anion Gap 15 (6-14) Blood Urea Nitrogen 55 mg/dL (8-26) Creatinine 1.8 mg/dL (0.7-1.3) Estimated GFR (Cockcroft-Gault) 43.3 BUN/Creatinine Ratio 31 (6-20) Glucose Level 115 mg/dL (70-99) Calcium Level 8.5 mg/dL (8.5-10.1) Total Bilirubin 1.7 mg/dL (0.2-1.0) Aspartate Amino Transf (AST/SGOT) 34 U/L (15-37) Alanine Aminotransferase (ALT/SGPT) 7 U/L (16-63) Alkaline Phosphatase 180 U/L (46-116) Total Protein 5.3 g/dL (6.4-8.2) Albumin 1.7 g/dL (3.4-5.0) Albumin/Globulin Ratio 0.5 (1.0-1.7) Micro Microbiology 09/11/20 Blood Culture - Preliminary, Resulted NO GROWTH AFTER 1 DAY Objective Assessment Fever on broad spectrum abx 1. Leukocytosis, 2. Acute on chronic heart failure. 3. Coronary artery disease. 4. Permanent atrial fibrillation. 5. Diabetes. 6. Dysphagia. 7. Anemia and thrombocytosis. 8. Generalized debility. 9. Constipation 10.Lt knee pain ? gout 11. LLE pain US neg for DVT Plan Plan of Care Repeat UA pending Continue Merrem ( 09/10) and Zyvox,was on zosyn, cont micafungin Ultrasound of left lower extremity and Left knee x-ray reviewed Uric acid high, management per Primary F/U labs and repeat cultures Oncology input noted, bone marrow biopsy scheduled as outpatient CT abdomen pelvis and chest without reviewed Monitor labs and cultures If patient has diarrhea check C. difficile Maintain aspiration precaution. D/W RN Discussed with 2 sons at bedside may need bone marrow , or comfort care AUSTIN TIJERINA MD Sep 13, 2020 08:59
--- NOTE | 2020-09-13 09:06 | RAD ---
EXAM: CT HEAD WITHOUT CONTRAST. HISTORY: Altered mental status. TECHNIQUE: Computed tomography of the head was performed without intravenous contrast. One or more of the following individualized dose reduction techniques were utilized for this examination: 1. Automated exposure control. 2. Adjustment of the mA and/or kV according to patient size. 3. Use of iterative reconstruction technique. COMPARISON: None. FINDINGS: A right frontal low-attenuation subdural collection measures 5 mm in thickness. The right e xtra-axial space is also mildly widened. Leftward midline shift measures 5 mm. 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 There is mild chronic microangiopathic white matter change elsewhere. Prominence of the lateral ventricles and hemispheric sulci indicates moderate atrophy. The visualized paranasal sinuses appear clear. The orbits are unremarkable. The temporal bones are un remarkable. The calvarium reveals no suspicious lesions. IMPRESSION: 1. Small to moderate subacute appearing right frontal subdural hematoma. 5 mm rightward midline shift . 2. Moderate atrophy and chronic microangiopathic white matter change. These findings were called to [facility] by Maldonado Klein on 09/13/2020 at 9:01 AM. Electronically signed by: Ronda Klein MD (09/13/2020 9:04 AM) [id number]
--- NOTE | 2020-09-13 09:06 | NUR ---
Pharmacy Warfarin Dosing Note S:Pharmacy consulted to assist with anticoagulation therapy started with target INR: 2 -3 O:MAMTA MACIAS is a 89 year old M with Atrial Fibrillation LABS: Last INR: 2.3 Last HGB: 10.2 Last HCT: 33.9 Last PLT: 387 Last dose of patient declined dose 09/11 & 09/12 Previous Regimen: 6 mg Mon,Th; 4 mg all other days Drug Interaction Changes: New Interacting Drug Ongoing Drug Interactions: ZOSYN A:INR of 2.3 is within desired range. Target range for this patient is: 2 -3 P: Warfarin dose: 4 mg Today at 1600 Bridge Therapy: None Next INR due 09/15/20 Pharmacy anticoagulation service will continue to follow. REGINA WANG RPH, 09/13/20 [id number]
--- NOTE | 2020-09-13 09:17 | PDOC ---
PROGRESS NOTES Date of Service DATE: 09/13/20 TIME: 09:15 Assessment Problems Medical Problems: (1) CHF (congestive heart failure) Status: Acute Dementia, metabolic encephalopathy Multiple medical problems: pneumonia, heart failure, leukocytosis, questionable etiology, coronary artery disease, atrial fibrillation, anemia and thrombocytosis, on top of his diabetes and COPD Note normal B12 and TSH Plan He has been vacillating about the head CT, is willing to get 1 as of now Treat medical issues Discussed with patient's son Subjective No complaints Objective Vital Signs Date Time Temp Pulse Resp B/P (MAP) Pulse Ox O2 Delivery O2 Flow Rate FiO2 09/13/20 07:00 97.6 87 17 105/50 (68) 97 Room Air 97.6 Intake and Output 09/13/20 07:00 Intake Total 1530 ml Balance 1530 ml Intake Oral 1330 ml IV Total 200 ml # Voids 3 # Bowel Movements 2 PHYSICAL EXAM Alert, does not know date or location, does tell me his name PERRL. EOMI. CN: no focal findings. Muscle tone: normal. Muscle strength: 4/5 DTR: 1+ Plantar reflex: Flexor Gait: not examined in bed. Sensory exam: no abnormal findings. No cerebellar signs elicited. Review of Relevant I have reviewed the following items tiffany (where applicable) has been applied. Labs Laboratory Tests Test 09/11/20 11:31 09/11/20 18:01 09/11/20 18:37 09/11/20 20:57 Glucose (Fingerstick) 80 mg/dL (70-99) 41 mg/dL (70-99) 128 mg/dL (70-99) 95 mg/dL (70-99) Test 09/12/20 03:30 09/12/20 08:29 09/12/20 11:50 09/12/20 17:10 White Blood Count 38.7 x10^3/uL (4.0-11.0) Red Blood Count 3.74 x10^6/uL (4.30-5.70) Hemoglobin 10.3 g/dL (13.0-17.5) Hematocrit 34.4 % (39.0-53.0) Mean Corpuscular Volume 92 fL (79-100) Mean Corpuscular Hemoglobin 28 pg (25-35) Mean Corpuscular Hemoglobin Concent 30 g/dL (31-37) Red Cell Distribution Width 25.0 % (11.5-14.5) Platelet Count 424 x10^3/uL (140-400) Neutrophils (%) (Auto) 86 % (31-73) Lymphocytes (%) (Auto) 7 % (24-48) Monocytes (%) (Auto) 2 % (0-9) Eosinophils (%) (Auto) 1 % (0-3) Basophils (%) (Auto) 5 % (0-3) Neutrophils # (Auto) 33.1 x10^3/uL (1.8-7.7) Lymphocytes # (Auto) 2.5 x10^3/uL (1.0-4.8) Monocytes # (Auto) 0.8 x10^3/uL (0.0-1.1) Eosinophils # (Auto) 0.3 x10^3/uL (0.0-0.7) Basophils # (Auto) 1.9 x10^3/uL (0.0-0.2) Glucose (Fingerstick) 69 mg/dL (70-99) 83 mg/dL (70-99) 73 mg/dL (70-99) Test 09/12/20 20:53 09/12/20 21:10 09/13/20 04:47 09/13/20 06:40 Glucose (Fingerstick) 64 mg/dL (70-99) 107 mg/dL (70-99) 82 mg/dL (70-99) White Blood Count 43.6 x10^3/uL (4.0-11.0) Red Blood Count 3.73 x10^6/uL (4.30-5.70) Hemoglobin 10.2 g/dL (13.0-17.5) Hematocrit 33.9 % (39.0-53.0) Mean Corpuscular Volume 91 fL (79-100) Mean Corpuscular Hemoglobin 27 pg (25-35) Mean Corpuscular Hemoglobin Concent 30 g/dL (31-37) Red Cell Distribution Width 25.2 % (11.5-14.5) Platelet Count 387 x10^3/uL (140-400) Neutrophils (%) (Auto) 89 % (31-73) Lymphocytes (%) (Auto) 4 % (24-48) Monocytes (%) (Auto) 1 % (0-9) Eosinophils (%) (Auto) 0 % (0-3) Basophils (%) (Auto) 5 % (0-3) Neutrophils # (Auto) 38.8 x10^3/uL (1.8-7.7) Lymphocytes # (Auto) 1.7 x10^3/uL (1.0-4.8) Monocytes # (Auto) 0.6 x10^3/uL (0.0-1.1) Eosinophils # (Auto) 0.2 x10^3/uL (0.0-0.7) Basophils # (Auto) 2.3 x10^3/uL (0.0-0.2) Prothrombin Time 25.2 SEC (11.7-14.0) Prothromb Time International Ratio 2.3 (0.8-1.1) Sodium Level 145 mmol/L (136-145) Potassium Level 3.3 mmol/L (3.5-5.1) Chloride Level 108 mmol/L (98-107) Carbon Dioxide Level 22 mmol/L (21-32) Anion Gap 15 (6-14) Blood Urea Nitrogen 55 mg/dL (8-26) Creatinine 1.8 mg/dL (0.7-1.3) Estimated GFR (Cockcroft-Gault) 43.3 BUN/Creatinine Ratio 31 (6-20) Glucose Level 115 mg/dL (70-99) Calcium Level 8.5 mg/dL (8.5-10.1) Total Bilirubin 1.7 mg/dL (0.2-1.0) Aspartate Amino Transf (AST/SGOT) 34 U/L (15-37) Alanine Aminotransferase (ALT/SGPT) 7 U/L (16-63) Alkaline Phosphatase 180 U/L (46-116) Total Protein 5.3 g/dL (6.4-8.2) Albumin 1.7 g/dL (3.4-5.0) Albumin/Globulin Ratio 0.5 (1.0-1.7) Test 09/13/20 08:12 Glucose (Fingerstick) 103 mg/dL (70-99) Laboratory Tests Test 09/12/20 11:50 09/12/20 17:10 09/12/20 20:53 09/12/20 21:10 Glucose (Fingerstick) 83 mg/dL (70-99) 73 mg/dL (70-99) 64 mg/dL (70-99) 107 mg/dL (70-99) Test 09/13/20 04:47 09/13/20 06:40 09/13/20 08:12 Glucose (Fingerstick) 82 mg/dL (70-99) 103 mg/dL (70-99) White Blood Count 43.6 x10^3/uL (4.0-11.0) Red Blood Count 3.73 x10^6/uL (4.30-5.70) Hemoglobin 10.2 g/dL (13.0-17.5) Hematocrit 33.9 % (39.0-53.0) Mean Corpuscular Volume 91 fL (79-100) Mean Corpuscular Hemoglobin 27 pg (25-35) Mean Corpuscular Hemoglobin Concent 30 g/dL (31-37) Red Cell Distribution Width 25.2 % (11.5-14.5) Platelet Count 387 x10^3/uL (140-400) Neutrophils (%) (Auto) 89 % (31-73) Lymphocytes (%) (Auto) 4 % (24-48) Monocytes (%) (Auto) 1 % (0-9) Eosinophils (%) (Auto) 0 % (0-3) Basophils (%) (Auto) 5 % (0-3) Neutrophils # (Auto) 38.8 x10^3/uL (1.8-7.7) Lymphocytes # (Auto) 1.7 x10^3/uL (1.0-4.8) Monocytes # (Auto) 0.6 x10^3/uL (0.0-1.1) Eosinophils # (Auto) 0.2 x10^3/uL (0.0-0.7) Basophils # (Auto) 2.3 x10^3/uL (0.0-0.2) Prothrombin Time 25.2 SEC (11.7-14.0) Prothromb Time International Ratio 2.3 (0.8-1.1) Sodium Level 145 mmol/L (136-145) Potassium Level 3.3 mmol/L (3.5-5.1) Chloride Level 108 mmol/L (98-107) Carbon Dioxide Level 22 mmol/L (21-32) Anion Gap 15 (6-14) Blood Urea Nitrogen 55 mg/dL (8-26) Creatinine 1.8 mg/dL (0.7-1.3) Estimated GFR (Cockcroft-Gault) 43.3 BUN/Creatinine Ratio 31 (6-20) Glucose Level 115 mg/dL (70-99) Calcium Level 8.5 mg/dL (8.5-10.1) Total Bilirubin 1.7 mg/dL (0.2-1.0) Aspartate Amino Transf (AST/SGOT) 34 U/L (15-37) Alanine Aminotransferase (ALT/SGPT) 7 U/L (16-63) Alkaline Phosphatase 180 U/L (46-116) Total Protein 5.3 g/dL (6.4-8.2) Albumin 1.7 g/dL (3.4-5.0) Albumin/Globulin Ratio 0.5 (1.0-1.7) Microbiology 09/11/20 Blood Culture - Preliminary, Resulted NO GROWTH AFTER 1 DAY Medications Current Medications Furosemide (Lasix) 40 mg 1X ONCE IVP Last administered on 09/03/20at 21:07; Start 09/03/20 at 21:00; Stop 09/03/20 at 21:01; Status DC Piperacillin Sod/ Tazobactam Sod 3.375 gm/Sodium Chloride 50 ml @ 100 mls/hr 1X ONCE IV Last administered on 09/03/20at 21:08; Start 09/03/20 at 21:00; Stop 09/03/20 at 21:29; Status DC Ondansetron HCl (Zofran) 4 mg PRN Q8HRS PRN IV NAUSEA/VOMITING; Start 09/03/20 at 21:00; Stop 09/04/20 at 20:59; Status DC Morphine Sulfate (Morphine Sulfate) 2 mg PRN Q2HR PRN IV PAIN; Start 09/03/20 at 21:00; Stop 09/04/20 at 20:59; Status DC Acetaminophen (Tylenol) 650 mg PRN Q4HRS PRN PO FEVER > 100.3'F; Start 09/03/20 at 21:00; Stop 09/04/20 at 20:59; Status DC Ascorbic Acid (Vitamin C) 250 mg DAILY PO Last administered on 09/11/20at 09:02; Start 09/04/20 at 09:00 Aspirin (Aspirin Chewable) 81 mg BID PO Last administered on 09/12/20 21:09; Start 09/04/20 at 09:00 Atorvastatin Calcium (Lipitor) 40 mg DAILY PO Last administered on 09/11/20 09:02; Start 09/04/20 at 09:00 Bumetanide (Bumex) 1 mg BID92 PO ; Start 09/04/20 at 09:00; Stop 09/04/20 at 07:53; Status DC Digoxin (Lanoxin) 125 mcg DAILY PO ; Start 09/04/20 at 09:00; Stop 09/04/20 at 07:47; Status DC Docusate Sodium (Colace) 100 mg TID PO Last administered on 09/11/20 20:28; Start 09/04/20 at 09:00 Acetaminophen/ Hydrocodone Bitart (Lortab 5/325) 1 tab PRN Q6HRS PRN PO PAIN Last administered on 09/11/20 03:57; Start 09/03/20 at 22:15 Metoprolol Tartrate (Lopressor) 100 mg DAILY PO ; Start 09/04/20 at 09:00; Stop 09/04/20 at 07:29; Status DC Warfarin Sodium (Coumadin Per Pharmacy) 1 each PRN DAILY PRN MC SEE COMMENTS Last administered on 09/13/20 09:06; Start 09/03/20 at 22:15 Piperacillin Sod/ Tazobactam Sod (Zosyn Per Pharmacy) 1 each PRN DAILY PRN MC SEE COMMENTS; Start 09/03/20 at 22:15; Status Cancel Albuterol/ Ipratropium (Duoneb) 3 ml RTQID NEB Last administered on 09/10/20at 20:11; Start 09/04/20 at 08:00; Stop 09/12/20 at 08:01; Status DC Prednisone (Prednisone) 40 mg 1X ONCE PO Last administered on 09/03/20at 22:41; Start 09/03/20 at 22:15; Stop 09/03/20 at 22:21; Status DC Insulin Human Lispro (HumaLOG) 0-7 UNITS TIDWMEALS SQ Last administered on 09/04/20at 12:32; Start 09/04/20 at 08:00 Dextrose (Dextrose 50%-Water Syringe) 12.5 gm PRN Q15MIN PRN IV SEE COMMENTS Last administered on 09/12/20 20:55; Start 09/03/20 at 22:15 Piperacillin Sod/ Tazobactam Sod 3.375 gm/Sodium Chloride 50 ml @ 100 mls/hr Q6HRS IV Last administered on 09/10/20 05:09; Start 09/04/20 at 06:00; Stop 09/10/20 at 11:42; Status DC Warfarin Sodium (Coumadin - No Dose Today) 1 each 1X WARF ONCE MC Last administered on 09/04/20at 16:00; Start 09/04/20 at 16:00; Stop 09/04/20 at 16:01; Status DC Bumetanide (Bumex) 2.5 mg BID92 IV Last administered on 09/04/20 15:23; Start 09/04/20 at 09:00; Stop 09/05/20 at 07:46; Status DC Lactobacillus Rhamnosus (Culturelle) 1 cap BID PO Last administered on 09/12/20at 21:09; Start 09/04/20 at 21:00 Tamsulosin HCl (Flomax) 0.4 mg QHS PO Last administered on 09/12/20 21:09; Start 09/05/20 at 21:00 Bumetanide (Bumex) 1 mg BID92 IV Last administered on 09/12/20 14:51; Start 09/05/20 at 09:00 Potassium Bicarbonate (Potassium Effervescent Tablet) 40 meq 1X ONCE PO Last administered on 09/05/20 09:06; Start 09/05/20 at 08:00; Stop 09/05/20 at 08:01; Status DC Warfarin Sodium (Coumadin - No Dose Today) 1 each 1X WARF ONCE MC Last administered on 09/05/20at 15:58; Start 09/05/20 at 16:00; Stop 09/05/20 at 16:01; Status DC Warfarin Sodium (Coumadin - No Dose Today) 1 each 1X WARF ONCE MC Last administered on 09/06/20at 16:00; Start 09/06/20 at 16:00; Stop 09/06/20 at 16:01; Status DC Warfarin Sodium (Coumadin - No Dose Today) 1 each 1X WARF ONCE MC ; Start 09/07/20 at 16:00; Stop 09/07/20 at 16:01; Status DC Bisacodyl (Dulcolax Supp) 10 mg 1X ONCE PA ; Start 09/07/20 at 13:00; Stop 09/07/20 at 18:32; Status DC Bisacodyl (Dulcolax Supp) 10 mg PRN DAILY PRN PA CONSTIPATION Last administered on 09/08/20at 08:29; Start 09/07/20 at 18:45 Warfarin Sodium (Coumadin - No Dose Today) 1 each 1X WARF ONCE MC ; Start 09/08/20 at 16:00; Stop 09/08/20 at 16:01; Status Cancel Warfarin Sodium (Coumadin) 4 mg 1X WARF ONCE PO Last administered on 09/08/20at 17:29; Start 09/08/20 at 16:00; Stop 09/08/20 at 16:01; Status DC Warfarin Sodium (Coumadin) 4 mg 1X WARF ONCE PO Last administered on 09/09/20at 16:53; Start 09/09/20 at 16:00; Stop 09/09/20 at 16:01; Status DC Potassium Chloride (Klor-Con) 20 meq 1X ONCE PO Last administered on 09/09/20at 09:32; Start 09/09/20 at 10:00; Stop 09/09/20 at 10:01; Status DC Linezolid (Zyvox) 600 mg BID PO Last administered on 09/12/20at 21:09; Start 09/09/20 at 12:00 Warfarin Sodium (Coumadin) 4 mg 1X WARF ONCE PO Last administered on 09/10/20at 16:47; Start 09/10/20 at 16:00; Stop 09/10/20 at 16:01; Status DC Meropenem 500 mg/ Sodium Chloride 50 ml @ 100 mls/hr Q8HRS IV Last admini stered on 09/13/20at 05:09; Start 09/10/20 at 14:00 Furosemide (Lasix) 20 mg DAILY IVP ; Start 09/11/20 at 09:00; Status UNV Phenyleph/Shark Oil/Min Oil/Petrol (Preparation H) 1 mihaela PRN QID PRN RC RECTAL PAIN; Start 09/10/20 at 19:15 Micafungin Sodium 100 mg/Dextrose 100 ml @ 100 mls/hr Q24H IV Last administered on 09/12/20at 11:28; Start 09/11/20 at 10:00 Warfarin Sodium (Coumadin) 4 mg 1X WARF ONCE PO ; Start 09/11/20 at 16:00; Stop 09/11/20 at 16:01; Status DC Dextrose 1,000 ml @ 25 mls/hr Q24H IV Last administered on 09/11/20at 20:29; Start 09/11/20 at 19:15 Warfarin Sodium (Coumadin) 3 mg 1X WARF ONCE PO ; Start 09/12/20 at 16:00; Stop 09/12/20 at 16:01; Status DC Albuterol Sulfate (Ventolin Neb Soln) 2.5 mg PRN Q6HRS PRN NEB SHORTNESS OF BREATH; Start 09/12/20 at 08:15 Warfarin Sodium (Coumadin) 4 mg 1X WARF ONCE PO ; Start 09/13/20 at 16:00; Stop 09/13/20 at 16:01 Active Scripts Active [place] 5-325 Tablet (Acetaminophen/Hydrocodone Bitart) 1 Each Tablet 7.5 Mg PO PRN Q6HRS PRN 6 Days LAST DOSE GIVEN: Reported Warfarin Sodium 2 Mg Tablet 4 Mg PO Warfarin Sodium 2 Mg Tablet 6 Mg PO QMTH Bumetanide 1 Mg Tablet 1 Mg PO BID Colace (Docusate Sodium) 100 Mg Capsule 1 Cap PO TID Metamucil Powder (Psyllium Seed (with Sugar)) 575 Gm Powder 575 Gm PO DAILY Atorvastatin Calcium 40 Mg Tablet 1 Tab PO DAILY Metoprolol Tartrate 100 Mg Tablet 100 Mg PO DAILY Tamsulosin Hcl 0.4 Mg Cap.er.24h 0.4 Mg PO HS DAILY Vitamin C (Ascorbic Acid) 500 Mg Tablet 250 Mg PO DAILY Aspirin 81 Mg Tab.chew 81 Mg PO BID Lanoxin (Digoxin) 125 Mcg Tablet 125 Mcg PO DAILY Vitals/I & O Vital Sign - Last 24 Hours 09/12/20 09/12/20 09/12/20 09/12/20 11:00 15:00 19:00 20:29 Temp 98.6 98.3 98.3 98.6 98.3 98.3 Pulse 97 57 90 Resp 20 20 18 B/P (MAP) 113/59 (77) 118/59 (78) 111/64 (80) Pulse Ox 97 94 93 O2 Delivery Room Air Room Air Room Air Room Air 6/6/21 6/7/21 6/7/21 23:00 03:00 07:00 Temp 98.3 99.8 97.6 98.3 99.8 97.6 Pulse 54 78 87 Resp 16 17 17 B/P (MAP) 130/51 (77) 130/44 (72) 105/50 (68) Pulse Ox 97 95 97 O2 Delivery Room Air Room Air Room Air Intake and Output 09/12/20 09/12/20 09/13/20 15:00 23:00 07:00 Intake Total 1300 ml 60 ml 170 ml Balance 1300 ml 60 ml 170 ml Justicifation of Admission Dx: Justifications for Admission: Justification of Admission Dx: Yes LEENA BRICE MD Sep 13, 2020 09:17
--- NOTE | 2020-09-13 09:37 | PDOC ---
PULMONARY PROGRESS NOTES DATE: 09/13/20 TIME: 09:37 Subjective Remains on room air No SOA or Cough Vitals Vital Signs Date Time Temp Pulse Resp B/P (MAP) Pulse Ox O2 Delivery O2 Flow Rate FiO2 09/13/20 07:00 97.6 87 17 105/50 (68) 97 Room Air 97.6 ROS: No Nausea, No Chest Pain, No Abdominal Pain, No Increase Cough General: Alert, No acute distress Lungs: Crackles (bases ) Cardiovascular: S1, S2 Abdomen: Soft, Non-tender Neuro Exam: Alert, Oriented Extremities: Other (edema) Skin: Warm, Dry Labs Laboratory Tests Test 09/11/20 11:31 09/11/20 18:01 09/11/20 18:37 09/11/20 20:57 Glucose (Fingerstick) 80 mg/dL (70-99) 41 mg/dL (70-99) 128 mg/dL (70-99) 95 mg/dL (70-99) Test 09/12/20 03:30 09/12/20 08:29 09/12/20 11:50 09/12/20 17:10 White Blood Count 38.7 x10^3/uL (4.0-11.0) Red Blood Count 3.74 x10^6/uL (4.30-5.70) Hemoglobin 10.3 g/dL (13.0-17.5) Hematocrit 34.4 % (39.0-53.0) Mean Corpuscular Volume 92 fL (79-100) Mean Corpuscular Hemoglobin 28 pg (25-35) Mean Corpuscular Hemoglobin Concent 30 g/dL (31-37) Red Cell Distribution Width 25.0 % (11.5-14.5) Platelet Count 424 x10^3/uL (140-400) Neutrophils (%) (Auto) 86 % (31-73) Lymphocytes (%) (Auto) 7 % (24-48) Monocytes (%) (Auto) 2 % (0-9) Eosinophils (%) (Auto) 1 % (0-3) Basophils (%) (Auto) 5 % (0-3) Neutrophils # (Auto) 33.1 x10^3/uL (1.8-7.7) Lymphocytes # (Auto) 2.5 x10^3/uL (1.0-4.8) Monocytes # (Auto) 0.8 x10^3/uL (0.0-1.1) Eosinophils # (Auto) 0.3 x10^3/uL (0.0-0.7) Basophils # (Auto) 1.9 x10^3/uL (0.0-0.2) Glucose (Fingerstick) 69 mg/dL (70-99) 83 mg/dL (70-99) 73 mg/dL (70-99) Test 09/12/20 20:53 09/12/20 21:10 09/13/20 04:47 09/13/20 06:40 Glucose (Fingerstick) 64 mg/dL (70-99) 107 mg/dL (70-99) 82 mg/dL (70-99) White Blood Count 43.6 x10^3/uL (4.0-11.0) Red Blood Count 3.73 x10^6/uL (4.30-5.70) Hemoglobin 10.2 g/dL (13.0-17.5) Hematocrit 33.9 % (39.0-53.0) Mean Corpuscular Volume 91 fL (79-100) Mean Corpuscular Hemoglobin 27 pg (25-35) Mean Corpuscular Hemoglobin Concent 30 g/dL (31-37) Red Cell Distribution Width 25.2 % (11.5-14.5) Platelet Count 387 x10^3/uL (140-400) Neutrophils (%) (Auto) 89 % (31-73) Lymphocytes (%) (Auto) 4 % (24-48) Monocytes (%) (Auto) 1 % (0-9) Eosinophils (%) (Auto) 0 % (0-3) Basophils (%) (Auto) 5 % (0-3) Neutrophils # (Auto) 38.8 x10^3/uL (1.8-7.7) Lymphocytes # (Auto) 1.7 x10^3/uL (1.0-4.8) Monocytes # (Auto) 0.6 x10^3/uL (0.0-1.1) Eosinophils # (Auto) 0.2 x10^3/uL (0.0-0.7) Basophils # (Auto) 2.3 x10^3/uL (0.0-0.2) Prothrombin Time 25.2 SEC (11.7-14.0) Prothromb Time International Ratio 2.3 (0.8-1.1) Sodium Level 145 mmol/L (136-145) Potassium Level 3.3 mmol/L (3.5-5.1) Chloride Level 108 mmol/L (98-107) Carbon Dioxide Level 22 mmol/L (21-32) Anion Gap 15 (6-14) Blood Urea Nitrogen 55 mg/dL (8-26) Creatinine 1.8 mg/dL (0.7-1.3) Estimated GFR (Cockcroft-Gault) 43.3 BUN/Creatinine Ratio 31 (6-20) Glucose Level 115 mg/dL (70-99) Calcium Level 8.5 mg/dL (8.5-10.1) Total Bilirubin 1.7 mg/dL (0.2-1.0) Aspartate Amino Transf (AST/SGOT) 34 U/L (15-37) Alanine Aminotransferase (ALT/SGPT) 7 U/L (16-63) Alkaline Phosphatase 180 U/L (46-116) Total Protein 5.3 g/dL (6.4-8.2) Albumin 1.7 g/dL (3.4-5.0) Albumin/Globulin Ratio 0.5 (1.0-1.7) Test 09/13/20 08:12 Glucose (Fingerstick) 103 mg/dL (70-99) Laboratory Tests Test 09/12/20 11:50 09/12/20 17:10 09/12/20 20:53 09/12/20 21:10 Glucose (Fingerstick) 83 mg/dL (70-99) 73 mg/dL (70-99) 64 mg/dL (70-99) 107 mg/dL (70-99) Test 09/13/20 04:47 09/13/20 06:40 09/13/20 08:12 Glucose (Fingerstick) 82 mg/dL (70-99) 103 mg/dL (70-99) White Blood Count 43.6 x10^3/uL (4.0-11.0) Red Blood Count 3.73 x10^6/uL (4.30-5.70) Hemoglobin 10.2 g/dL (13.0-17.5) Hematocrit 33.9 % (39.0-53.0) Mean Corpuscular Volume 91 fL (79-100) Mean Corpuscular Hemoglobin 27 pg (25-35) Mean Corpuscular Hemoglobin Concent 30 g/dL (31-37) Red Cell Distribution Width 25.2 % (11.5-14.5) Platelet Count 387 x10^3/uL (140-400) Neutrophils (%) (Auto) 89 % (31-73) Lymphocytes (%) (Auto) 4 % (24-48) Monocytes (%) (Auto) 1 % (0-9) Eosinophils (%) (Auto) 0 % (0-3) Basophils (%) (Auto) 5 % (0-3) Neutrophils # (Auto) 38.8 x10^3/uL (1.8-7.7) Lymphocytes # (Auto) 1.7 x10^3/uL (1.0-4.8) Monocytes # (Auto) 0.6 x10^3/uL (0.0-1.1) Eosinophils # (Auto) 0.2 x10^3/uL (0.0-0.7) Basophils # (Auto) 2.3 x10^3/uL (0.0-0.2) Prothrombin Time 25.2 SEC (11.7-14.0) Prothromb Time International Ratio 2.3 (0.8-1.1) Sodium Level 145 mmol/L (136-145) Potassium Level 3.3 mmol/L (3.5-5.1) Chloride Level 108 mmol/L (98-107) Carbon Dioxide Level 22 mmol/L (21-32) Anion Gap 15 (6-14) Blood Urea Nitrogen 55 mg/dL (8-26) Creatinine 1.8 mg/dL (0.7-1.3) Estimated GFR (Cockcroft-Gault) 43.3 BUN/Creatinine Ratio 31 (6-20) Glucose Level 115 mg/dL (70-99) Calcium Level 8.5 mg/dL (8.5-10.1) Total Bilirubin 1.7 mg/dL (0.2-1.0) Aspartate Amino Transf (AST/SGOT) 34 U/L (15-37) Alanine Aminotransferase (ALT/SGPT) 7 U/L (16-63) Alkaline Phosphatase 180 U/L (46-116) Total Protein 5.3 g/dL (6.4-8.2) Albumin 1.7 g/dL (3.4-5.0) Albumin/Globulin Ratio 0.5 (1.0-1.7) Medications Active Scripts Medications Dose Route/Sig Max Daily Dose Days Date Category Dose Instructions Bumetanide 1 Mg Tablet 1 Mg PO BID 07/28/20 Reported [place] 5-325 Tablet (Acetaminophen/Hydrocodone Bitart) 1 Each Tablet 7.5 Mg PO PRN Q6HRS PRN 6 09/20/18 Rx LAST DOSE GIVEN: Colace (Docusate Sodium) 100 Mg Capsule 1 Cap PO TID 09/09/18 Reported Metamucil Powder (Psyllium Seed (with Sugar)) 575 Gm Powder 575 Gm PO DAILY 09/09/18 Reported Atorvastatin Calcium 40 Mg Tablet 1 Tab PO DAILY 08/12/18 Reported Metoprolol Tartrate 100 Mg Tablet 100 Mg PO DAILY 11/08/17 Reported Tamsulosin Hcl 0.4 Mg Cap.er.24h 0.4 Mg PO HS DAILY 11/08/17 Reported Vitamin C (Ascorbic Acid) 500 Mg Tablet 250 Mg PO DAILY 05/08/14 Reported Warfarin Sodium 5 Mg Tablet 1.5 Tab PO QWE 04/18/14 Reported Warfarin Sodium 5 Mg Tablet 1 Tab PO DAILY EXCEPT WED. 04/18/14 Reported Aspirin 81 Mg Tab.chew 81 Mg PO BID 08/22/13 Reported Lanoxin (Digoxin) 125 Mcg Tablet 125 Mcg PO DAILY 08/22/13 Reported Comments 09/11 cxr reviewed 1. Left lower lobe infiltrate superimposed on chronic interstitial changes. 2. Stable small pleural effusions. 3. Cardiomegaly and left greater than right hilar enlargement likely due to pulmonary artery hypertension. ct of abd pelvis chest 1. Enlarged ascending thoracic aorta measuring 4.5 cm. 2. Moderate cardiomegaly. 3. Increased, small pleural effusions and bibasilar atelectasis. Mild emphysema. Chronic appearing interstitial changes or scarring in the lung bases, unchanged. 4. Mild hepatosplenomegaly. 5. Trace ascites. Impression . IMPRESSION: 1. Dyspnea secondary to acute systolic and diastolic congestive heart failure--improving on room air 2. Abnormal chest x-ray. 3. 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 4. Cardiomyopathy. 5. 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 6. Obstructive sleep apnea-hypopnea syndrome, CPAP noncompliant. 7. Paroxysmal atrial fibrillation, on Coumadin. 8. Acute kidney injury/chronic kidney disease. 9. leukocytosis --worsening --ID following 10. Chronic SDH-- neuro SX. following Plan . RECOMMENDATIONS: Titrate FiO2 to keep O2 saturation 90%, on room air ID consulted for worsening leukocytosis-- CT of Chest/ABD/PLVS reviewed CT of chest reviewed, Increased, but small pleural effusions (not amenable to thoracentesis) and bibasilar atelectasis. Mild emphysema. Chronic appearing interstitial changes or scarring in the lung bases, unchanged. Oncology planning for outpt bone marrow biopsy NEBS Follow cardiology recs----Echocardiogram 2019 ejection fraction of 40% Follow nephrology recs - monitor renal function Coumadin on HOLD Neuro surgery following -- SDH DVT/GI PPX D/W RN Pt. is DNR, D/W RN and DR. Olivarez, recommend Hospice BREN CARDOZO MD Sep 13, 2020 09:37
--- NOTE | 2020-09-13 10:07 | PDOC ---
DATE OF SERVICE DATE: 09/13/20 TIME: 10:01 SUBJECTIVE ROS Stable, On RA OBJECTIVE Vital Signs Vital Signs Date Time Temp Pulse Resp B/P (MAP) Pulse Ox O2 Delivery O2 Flow Rate FiO2 09/13/20 07:00 97.6 87 17 105/50 (68) 97 Room Air 97.6 I & 0 Intake and Output 09/13/20 07:00 Intake Total 1530 ml Balance 1530 ml Intake Oral 1330 ml IV Total 200 ml # Voids 3 # Bowel Movements 2 PHYSICAL EXAM Physical Exam Gen NAD , HEEN OM moist, hard of hearing Neck Supple Lungs decreased bases, Non labored CV S1`s2 Abd Soft, NT Neuro grossly Normal Skin No rash No CVA OR SP tenderness, No gaytan DIAGNOSIS/ASSESSMENT Assessment & Plan DION - suspect Cardiorenal , Cr elevated in July - admitted for CHF, prior labs in [facility] records with normal baseline Cr .stable renal function , probably his new baseline monitor, supportive care, Urine output not recorded ,Wt has been stable, daily standing wt Avoid nephrotoxins and overdiuresis .. Diuretics per cardiology Acute on chronic systolic heart failure- appears compensated Echocardiogram 2020 ejection fraction of 40%. On Bumex at home . Card managing, currently on IV Bumex HyperNatremia - resolved HypoKalemia- Mild, replace Exacerbation of COPD Chest x-ray- left lower lobe pneumonia Atrial fibrillation. History of coronary artery disease. Diabetes mellitus Hypertension; controlled Leukocytosis, neutrophilic/ Thrombocytosis/ Elevated K and L, K/L - Defer to Hem Onc COMMENT/RELEVANT DATA Meds Current Medications Medications (Trade) Dose Ordered Sig/Rakesh Start Time Stop Time Status Last Admin Dose Admin Acetaminophen (Tylenol) 650 mg PRN Q4HRS PRN 09/03/20 21:00 09/04/20 20:59 DC Acetaminophen/ Hydrocodone Bitart (Lortab 5/325) 1 tab PRN Q6HRS PRN 09/03/20 22:15 09/11/20 03:57 1 TAB Albuterol Sulfate (Ventolin Neb Soln) 2.5 mg PRN Q6HRS PRN 09/12/20 08:15 Albuterol/ Ipratropium (Duoneb) 3 ml RTQID 09/04/20 08:00 09/12/20 08:01 DC 09/10/20 20:11 3 ML Ascorbic Acid (Vitamin C) 250 mg DAILY 09/04/20 09:00 09/11/20 09:02 250 MG Aspirin (Aspirin Chewable) 81 mg BID 09/04/20 09:00 09/13/20 09:28 DC 09/12/20 21:09 81 MG Atorvastatin Calcium (Lipitor) 40 mg DAILY 09/04/20 09:00 09/11/20 09:02 40 MG Bisacodyl (Dulcolax Supp) 10 mg PRN DAILY PRN 09/07/20 18:45 09/08/20 08:29 10 MG Bumetanide (Bumex) 1 mg BID92 09/05/20 09:00 09/12/20 14:51 1 MG Dextrose 1,000 ml @ 25 mls/hr Q24H 09/11/20 19:15 09/11/20 20:29 25 MLS/HR Dextrose (Dextrose 50%-Water Syringe) 12.5 gm PRN Q15MIN PRN 09/03/20 22:15 09/12/20 20:55 12.5 GM Digoxin (Lanoxin) 125 mcg DAILY 09/04/20 09:00 09/04/20 07:47 DC Docusate Sodium (Colace) 100 mg TID 09/04/20 09:00 09/11/20 20:28 100 MG Furosemide (Lasix) 20 mg DAILY 09/11/20 09:00 UNV Insulin Human Lispro (HumaLOG) 0-7 UNITS TIDWMEALS 09/04/20 08:00 09/04/20 12:32 4 UNITS Lactobacillus Rhamnosus (Culturelle) 1 cap BID 09/04/20 21:00 09/12/20 21:09 1 CAP Linezolid (Zyvox) 600 mg BID 09/09/20 12:00 09/12/20 21:09 600 MG Meropenem 500 mg/ Sodium Chloride 50 ml @ 100 mls/hr Q8HRS 09/10/20 14:00 09/13/20 05:09 100 MLS/HR Metoprolol Tartrate (Lopressor) 100 mg DAILY 09/04/20 09:00 09/04/20 07:29 DC Micafungin Sodium 100 mg/Dextrose 100 ml @ 100 mls/hr Q24H 09/11/20 10:00 09/12/20 11:28 100 MLS/HR Morphine Sulfate (Morphine Sulfate) 2 mg PRN Q2HR PRN 09/03/20 21:00 09/04/20 20:59 DC Ondansetron HCl (Zofran) 4 mg PRN Q8HRS PRN 09/03/20 21:00 09/04/20 20:59 DC Phenyleph/Shark Oil/Min Oil/Petrol (Preparation H) 1 mihaela PRN QID PRN 09/10/20 19:15 Piperacillin Sod/ Tazobactam Sod (Zosyn Per Pharmacy) 1 each PRN DAILY PRN 09/03/20 22:15 Cancel Piperacillin Sod/ Tazobactam Sod 3.375 gm/Sodium Chloride 50 ml @ 100 mls/hr Q6HRS 09/04/20 06:00 09/10/20 11:42 DC 09/10/20 05:09 100 MLS/HR Potassium Bicarbonate (Potassium Effervescent Tablet) 40 meq 1X ONCE 09/05/20 08:00 09/05/20 08:01 DC 09/05/20 09:06 40 MEQ Potassium Chloride (Klor-Con) 20 meq 1X ONCE 09/09/20 10:00 09/09/20 10:01 DC 09/09/20 09:32 20 MEQ Prednisone (Prednisone) 40 mg 1X ONCE 09/03/20 22:15 09/03/20 22:21 DC 09/03/20 22:41 40 MG Tamsulosin HCl (Flomax) 0.4 mg QHS 09/05/20 21:00 09/12/20 21:09 0.4 MG Warfarin Sodium (Coumadin - No Dose Today) 1 each 1X WARF ONCE 09/08/20 16:00 09/08/20 16:01 Cancel Warfarin Sodium (Coumadin Per Pharmacy) 1 each PRN DAILY PRN 09/03/20 22:15 09/13/20 09:28 DC 09/13/20 09:06 1 EACH Warfarin Sodium (Coumadin) 4 mg 1X WARF ONCE 09/13/20 16:00 09/13/20 09:28 DC Lab Laboratory Tests Test 09/12/20 11:50 09/12/20 17:10 09/12/20 20:53 09/12/20 21:10 Glucose (Fingerstick) 83 mg/dL (70-99) 73 mg/dL (70-99) 64 mg/dL (70-99) 107 mg/dL (70-99) Test 09/13/20 04:47 09/13/20 06:40 09/13/20 08:12 Glucose (Fingerstick) 82 mg/dL (70-99) 103 mg/dL (70-99) White Blood Count 43.6 x10^3/uL (4.0-11.0) Red Blood Count 3.73 x10^6/uL (4.30-5.70) Hemoglobin 10.2 g/dL (13.0-17.5) Hematocrit 33.9 % (39.0-53.0) Mean Corpuscular Volume 91 fL (79-100) Mean Corpuscular Hemoglobin 27 pg (25-35) Mean Corpuscular Hemoglobin Concent 30 g/dL (31-37) Red Cell Distribution Width 25.2 % (11.5-14.5) Platelet Count 387 x10^3/uL (140-400) Neutrophils (%) (Auto) 89 % (31-73) Lymphocytes (%) (Auto) 4 % (24-48) Monocytes (%) (Auto) 1 % (0-9) Eosinophils (%) (Auto) 0 % (0-3) Basophils (%) (Auto) 5 % (0-3) Neutrophils # (Auto) 38.8 x10^3/uL (1.8-7.7) Lymphocytes # (Auto) 1.7 x10^3/uL (1.0-4.8) Monocytes # (Auto) 0.6 x10^3/uL (0.0-1.1) Eosinophils # (Auto) 0.2 x10^3/uL (0.0-0.7) Basophils # (Auto) 2.3 x10^3/uL (0.0-0.2) Prothrombin Time 25.2 SEC (11.7-14.0) Prothromb Time International Ratio 2.3 (0.8-1.1) Sodium Level 145 mmol/L (136-145) Potassium Level 3.3 mmol/L (3.5-5.1) Chloride Level 108 mmol/L (98-107) Carbon Dioxide Level 22 mmol/L (21-32) Anion Gap 15 (6-14) Blood Urea Nitrogen 55 mg/dL (8-26) Creatinine 1.8 mg/dL (0.7-1.3) Estimated GFR (Cockcroft-Gault) 43.3 BUN/Creatinine Ratio 31 (6-20) Glucose Level 115 mg/dL (70-99) Calcium Level 8.5 mg/dL (8.5-10.1) Total Bilirubin 1.7 mg/dL (0.2-1.0) Aspartate Amino Transf (AST/SGOT) 34 U/L (15-37) Alanine Aminotransferase (ALT/SGPT) 7 U/L (16-63) Alkaline Phosphatase 180 U/L (46-116) Total Protein 5.3 g/dL (6.4-8.2) Albumin 1.7 g/dL (3.4-5.0) Albumin/Globulin Ratio 0.5 (1.0-1.7) Results All relevant outside records, renal labs, imaging studies, telemetry/EKG's were reviewed. Justicifation of Admission Dx: Justifications for Admission: Justification of Admission Dx: Yes DEXTER ULLOA MD Sep 13, 2020 10:07
[2020-09-13] MEDS: BUMETANIDE 1 MG/4 ML VIAL. IV SCH ×2 (10:37→15:07)
[2020-09-13] MEDS: MICAFUNGIN 100 MG in IV DEXTROSE 5% 100ML 100 ML IV SCH (10:37)
[2020-09-13] MEDS: DOCUSATE SODIUM 100 MG CAPSULE. PO SCH ×3 (10:58→21:00)
[2020-09-13] MEDS: ASCORBIC ACID 500 MG TABLET PO SCH (10:59)
[2020-09-13] MEDS: LACTOBACILLUS RHAMNOSUS GG 1 CAPSULE. PO SCH ×2 (10:59→21:04)
[2020-09-13] MEDS: LINEZOLID 600 MG TABLET PO SCH ×2 (10:59→21:04)
[2020-09-13 11:00] VITALS: BP 77/40
[2020-09-13] MEDS: ATORVASTATIN CALCIUM 40 MG TABLET. PO SCH (11:07)
[2020-09-13 11:16] LABS: % BANDS 2 % (0-9); % EOS 2 % (0-5); % LYMPHS 5 % (24-48); % MONOS 5 % (0-10); % SEGS 86 % (35-66); NUCLEATED RBC 1; PLT ESTIMATE ADEQUATE (ADEQUATE)
[2020-09-13 11:17] LABS: POLYCHROMASIA MOD
--- NOTE | 2020-09-13 11:51 | PDOC ---
BART PAZ SAFETY LEAD 09/13/20 1151: CARDIO Progress Notes Date and Time Date of Service 09/13/20 Time of Evaluation 1145 Subjective Subjective: No Chest Pain, No Palpitations Vitals Vitals Vital Signs Date Time Temp Pulse Resp B/P (MAP) Pulse Ox O2 Delivery O2 Flow Rate FiO2 09/13/20 08:00 Room Air 09/13/20 07:00 97.6 87 17 105/50 (68) 97 97.6 Weight Weight [ ] Input and Output Intake and Output Intake and Output 09/13/20 07:00 Intake Total 1530 ml Balance 1530 ml Intake Oral 1330 ml IV Total 200 ml # Voids 3 # Bowel Movements 2 Laboratory Labs Laboratory Tests Test 09/12/20 11:50 09/12/20 17:10 09/12/20 20:53 09/12/20 21:10 Glucose (Fingerstick) 83 mg/dL (70-99) 73 mg/dL (70-99) 64 mg/dL (70-99) 107 mg/dL (70-99) Test 09/13/20 04:47 09/13/20 06:40 09/13/20 08:12 09/13/20 11:45 Glucose (Fingerstick) 82 mg/dL (70-99) 103 mg/dL (70-99) 131 mg/dL (70-99) White Blood Count 43.6 x10^3/uL (4.0-11.0) Red Blood Count 3.73 x10^6/uL (4.30-5.70) Hemoglobin 10.2 g/dL (13.0-17.5) Hematocrit 33.9 % (39.0-53.0) Mean Corpuscular Volume 91 fL (79-100) Mean Corpuscular Hemoglobin 27 pg (25-35) Mean Corpuscular Hemoglobin Concent 30 g/dL (31-37) Red Cell Distribution Width 25.2 % (11.5-14.5) Platelet Count 387 x10^3/uL (140-400) Neutrophils (%) (Auto) 89 % (31-73) Lymphocytes (%) (Auto) 4 % (24-48) Monocytes (%) (Auto) 1 % (0-9) Eosinophils (%) (Auto) 0 % (0-3) Basophils (%) (Auto) 5 % (0-3) Neutrophils # (Auto) 38.8 x10^3/uL (1.8-7.7) Lymphocytes # (Auto) 1.7 x10^3/uL (1.0-4.8) Monocytes # (Auto) 0.6 x10^3/uL (0.0-1.1) Eosinophils # (Auto) 0.2 x10^3/uL (0.0-0.7) Basophils # (Auto) 2.3 x10^3/uL (0.0-0.2) Segmented Neutrophils % 86 % (35-66) Band Neutrophils % 2 % (0-9) Lymphocytes % 5 % (24-48) Monocytes % 5 % (0-10) Eosinophils % 2 % (0-5) Nucleated Red Blood Cells 1 Dohle Bodies Few Platelet Estimate Adequate (ADEQUATE) Large Platelets Few Giant Platelets Occ Polychromasia Mod Prothrombin Time 25.2 SEC (11.7-14.0) Prothromb Time International Ratio 2.3 (0.8-1.1) Sodium Level 145 mmol/L (136-145) Potassium Level 3.3 mmol/L (3.5-5.1) Chloride Level 108 mmol/L (98-107) Carbon Dioxide Level 22 mmol/L (21-32) Anion Gap 15 (6-14) Blood Urea Nitrogen 55 mg/dL (8-26) Creatinine 1.8 mg/dL (0.7-1.3) Estimated GFR (Cockcroft-Gault) 43.3 BUN/Creatinine Ratio 31 (6-20) Glucose Level 115 mg/dL (70-99) Calcium Level 8.5 mg/dL (8.5-10.1) Total Bilirubin 1.7 mg/dL (0.2-1.0) Aspartate Amino Transf (AST/SGOT) 34 U/L (15-37) Alanine Aminotransferase (ALT/SGPT) 7 U/L (16-63) Alkaline Phosphatase 180 U/L (46-116) Total Protein 5.3 g/dL (6.4-8.2) Albumin 1.7 g/dL (3.4-5.0) Albumin/Globulin Ratio 0.5 (1.0-1.7) Microbiology Micro Microbiology 09/11/20 Blood Culture - Preliminary, Resulted NO GROWTH AFTER 2 DAYS Physical Exam HEENT: Neck Supple W Full Motion Chest: Symmetric LUNGS: Clear to Auscultation Heart: irregularly irregular (AFIB- rate controlled ) Abdomen: Soft N/T Extremities: Other (1+ bilateral LE edema ) Neurology: alert, oriented, follow commands Assessment Assessment 1. Acute respiratory failure with a/c CHF and untreated USAMA. improved 2. 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 Echo 07/28 with LVEF 45%. improved s/p diuresis 3. CAD; catheterization 08/2018 with CARE ASST of LAD with collaterals, which is unchanged from previous cath in 2013. clinically stable, CP free. 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 4. Permanent AFIB; rate controlled. on warfarin for stroke prevention. INR 2.3 5. 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 Trace) - recent device check showed normal function. no dizziness, syncope 6. Hypertension; controlled 7. Hyperlipidemia; statin 8. Diabetes, II; as per IM 9. DION on CKD; Cr down to 1.8 10. Leukocytosis, low-grade fevers. BC negative. Concerns for leukemia 11. Encephalopathy; CT head with small to moderate subacute appearing right frontal SDH with rightward midline shift. neurosurgery consulted 12. Hypokalemia Recommendations Bumex with close monitoring of renal function Check Mg and replace as warranted Secondary prevention measures as able ASA, OAC discontinued due to SDH Follow neurosurgery recs Supportive care Justicifation of Admission Dx: Justifications for Admission: Justification of Admission Dx: Yes SHAWN PARKER MD 09/13/201926: CARDIO Progress Notes Assessment Assessment Patient seen and examined. Agree with CORPORATE SERVICES MANAGER's assessment and plan. Ac on chr combined systolic and diast HF better compensated CAD, SSS s/p PPM clinically stable Perm atrial fib rate controlled. Warfarin stopped due to subdural hematoma - NS following BART PAZ APRN Sep 13, 2020 11:51 SHAWN PARKER MD Sep 13, 2020 19:27
--- NOTE | 2020-09-13 13:50 | NUR ---
SS following up with discharge planning. SS reviewed pt chart and discussed with pt RN. Pt is currently on room air. COVID19 negative. Pt on IV Micafungin and IV Meropenem. Pt had Head CT and has subdural hematoma. Dr. Skinner consulted. PT/OT recommended usp unit. Pt accepted at [facility], ; fax [phone]. SS will continue to follow for discharge planning.
--- NOTE | 2020-09-13 14:30 | NUR ---
Wound/Ostomy Care Wound Type/Assessment: Patient seen per wound care consult. See wound assessment. patient has stage III with DTI to coccyx. Wound cleansed, assessed, and measured. There is a large portion of this wound that is reddened with DTI. Patient brief wet and changed at this time. Treatment Recommendations/Plan: Recommendations for calazime cream to wound due to incontinence. Calazime applied. No other wounds noted. Patient is able to assist with turns. Patient appears to be in pain and stated he would like for the Lord to come get him and take him home. Dr. Mohan also at bedside and stated there has been conversation discussed about Hospice care. We will continue to follow regarding POC. Education provided: Patient is confused at times, but followed verbal commands appropriately. Offloading surface/device: Patient turned to right side using wedge, if patient is staying inpatient he will need a P-500 bed. Patient should be turned every 2 hours. Bilateral heels elevated using pillows. Recommended Referrals/Tests: Discharge Recommendations for dressings: Dressing change instructions left in room. Bed lowered, call light in reach, and bed alarm set. Wound care will follow up on 09/21/20.
[2020-09-13 15:00] VITALS: BP 106/59
[2020-09-13] MEDS ORDERED: WARFARIN 4 MG TABLET. PO ONE (16:00)
--- NOTE | 2020-09-13 17:59 | PDOC ---
Provider Note Date of Service: DATE: 09/13/20 TIME: 17:56 Provider Note Patient seen and examined at 1430 consulted for chronic SDH alert, denies headache, no complaints oriented to person and place strength 4/5 CT with Small to moderate subacute appearing right frontal subdural hematoma. 5 mm rightward midline shift warfarin is being held he will need a follow CT head in 7 to 10 days Justifications for Admission Other Justification RAUL BAILEY MD Sep 13, 2020 17:59
[2020-09-13] MEDS: IV DEXTROSE 5% 1,000 ML IV SCH (19:15)
[2020-09-13 19:40] VITALS: BP 102/50
[2020-09-13] MEDS: TAMSULOSIN 0.4 MG CAP.ER.24H. PO SCH (21:03)
[2020-09-13 23:15] VITALS: BP 109/49
[2020-09-14 03:56] VITALS: BP 90/45
[2020-09-14] MEDS: MEROPENEM 500 MG in IV NORMAL SALINE 50ML 50 ML IV SCH ×3 (06:00→21:55)
[2020-09-14 07:00] VITALS: BP 102/49
[2020-09-14 07:51] LABS: CALCIUM 8.5 mg/dL (8.5-10.1); CREATININE 1.8 mg/dL (0.7-1.3); GFR 43.3; POTASSIUM 3.3 mmol/L (3.5-5.1)
[2020-09-14] MEDS: INSULIN LISPRO 300 UNITS/3 ML VIAL. SQ SCH ×3 (08:00→17:00)
--- NOTE | 2020-09-14 08:13 | PDOC ---
Infectious Disease Note Subjective Subjective pt continues to have off and on fever, on broad coverage, likely non infection related ( leukemia possibly) ROS ROS no n/v/d/ Vital Sign Vital Signs Vital Signs Date Time Temp Pulse Resp B/P (MAP) Pulse Ox O2 Delivery O2 Flow Rate FiO2 09/14/20 07:50 Room Air 09/14/20 03:56 97.6 82 16 90/45 (60) 90 97.6 Physical Exam PHYSICAL EXAM GENERAL: CONFUSED male, not in distress distress. Answers only a few questions HEENT: Normocephalic, atraumatic. Oral mucosa moist. NECK: Supple. LUNGS: Mild crackles. HEART: S1, S2. Pacemaker without signs of complication. ABDOMEN: Soft, nontender, and nondistended. EXTREMITIES: No cyanosis bilateral lower extremity swelling present. NO Calf tenderness present left lower extremity MSK changes suggestive of DJD, pain in left knee, no effusion DERMATOLOGIC: Warm, dry. No generalized rash. NEUROLOGIC: Alert, awake, answers questions appropriately. PSYCHIATRIC: Calm and cooperative. Labs Lab Laboratory Tests Test 09/13/20 08:12 09/13/20 11:45 09/13/20 17:02 09/13/20 21:09 Glucose (Fingerstick) 103 mg/dL (70-99) 131 mg/dL (70-99) 97 mg/dL (70-99) 112 mg/dL (70-99) Test 09/14/20 06:15 Sodium Level 145 mmol/L (136-145) Potassium Level 3.3 mmol/L (3.5-5.1) Chloride Level 108 mmol/L (98-107) Carbon Dioxide Level 20 mmol/L (21-32) Anion Gap 17 (6-14) Blood Urea Nitrogen 62 mg/dL (8-26) Creatinine 1.8 mg/dL (0.7-1.3) Estimated GFR (Cockcroft-Gault) 43.3 Glucose Level 88 mg/dL (70-99) Calcium Level 8.5 mg/dL (8.5-10.1) Micro Microbiology 09/11/20 Blood Culture - Preliminary, Resulted NO GROWTH AFTER 1 DAY Objective Assessment Fever on broad spectrum abx 1. Leukocytosis, 2. Acute on chronic heart failure. 3. Coronary artery disease. 4. Permanent atrial fibrillation. 5. Diabetes. 6. Dysphagia. 7. Anemia and thrombocytosis. 8. Generalized debility. 9. Constipation 10.Lt knee pain ? gout 11. LLE pain US neg for DVT Plan Plan of Care Continue Merrem ( /) and Zyvox,was on zosyn, cont micafungin Ultrasound of left lower extremity and Left knee x-ray reviewed Uric acid high, management per Primary F/U labs and repeat cultures Oncology input noted, bone marrow biopsy scheduled as outpatient CT abdomen pelvis and chest without reviewed Monitor labs and cultures If patient has diarrhea check C. difficile Maintain aspiration precaution. D/W RN prognosis poor may need comfort care AUSTIN TIJERINA MD Sep 14, 2020 08:12
[2020-09-14] MEDS: LINEZOLID 600 MG TABLET PO SCH ×2 (08:47→21:06)
[2020-09-14] MEDS: BUMETANIDE 1 MG/4 ML VIAL. IV SCH ×2 (08:47→14:00)
[2020-09-14] MEDS: DOCUSATE SODIUM 100 MG CAPSULE. PO SCH ×3 (08:48→21:00)
[2020-09-14] MEDS: ASCORBIC ACID 500 MG TABLET PO SCH (08:48)
[2020-09-14] MEDS: ATORVASTATIN CALCIUM 40 MG TABLET. PO SCH (08:48)
[2020-09-14] MEDS: LACTOBACILLUS RHAMNOSUS GG 1 CAPSULE. PO SCH ×2 (08:48→21:06)
--- NOTE | 2020-09-14 09:39 | PDOC ---
DATE OF SERVICE DATE: 09/14/20 TIME: 09:39 SUBJECTIVE ROS Stable, On RA OBJECTIVE Vital Signs Vital Signs Date Time Temp Pulse Resp B/P (MAP) Pulse Ox O2 Delivery O2 Flow Rate FiO2 09/14/20 07:50 Room Air 09/14/20 07:00 97.4 91 20 102/49 (66) 96 97.4 I & 0 Intake and Output 09/14/20 07:00 Intake Total 1050 ml Balance 1050 ml Intake Oral 1050 ml # Voids 4 # Bowel Movements 1 PHYSICAL EXAM Physical Exam Gen NAD , HEEN OM moist, hard of hearing Neck Supple Lungs decreased bases, Non labored CV S1`s2 Abd Soft, NT Neuro grossly Normal Skin No rash No CVA OR SP tenderness, No gaytan DIAGNOSIS/ASSESSMENT Assessment & Plan DION - suspect Cardiorenal , Cr elevated in July - admitted for CHF, prior labs in [facility] records with normal baseline Cr .stable renal function , probably his new baseline monitor, supportive care, Urine output not recorded ,Wt has been stable Avoid nephrotoxins and overdiuresis .. Diuretics per cardiology Acute on chronic systolic heart failure- appears compensated Echocardiogram 2020 ejection fraction of 40%. On Bumex at home . Card managing, currently on IV Bumex HyperNatremia - resolved HypoKalemia- Mild, replace Exacerbation of COPD Chest x-ray- left lower lobe pneumonia Atrial fibrillation. History of coronary artery disease. Diabetes mellitus Hypertension; controlled Leukocytosis, neutrophilic/ Thrombocytosis/ Elevated K and L, K/L - per Hem Onc subacute appearing right frontal subdural hematoma. 5 mm rightward midline shift.warfarin is being held. NS following COMMENT/RELEVANT DATA Meds Current Medications Medications (Trade) Dose Ordered Sig/Rakesh Start Time Stop Time Status Last Admin Dose Admin Acetaminophen (Tylenol) 650 mg PRN Q4HRS PRN 09/03/20 21:00 09/04/20 20:59 DC Acetaminophen/ Hydrocodone Bitart (Lortab 5/325) 1 tab PRN Q6HRS PRN 09/03/20 22:15 09/11/20 03:57 1 TAB Albuterol Sulfate (Ventolin Neb Soln) 2.5 mg PRN Q6HRS PRN 09/12/20 08:15 Albuterol/ Ipratropium (Duoneb) 3 ml RTQID 09/04/20 08:00 09/12/20 08:01 DC 09/10/20 20:11 3 ML Ascorbic Acid (Vitamin C) 250 mg DAILY 09/04/20 09:00 09/14/20 08:48 250 MG Aspirin (Aspirin Chewable) 81 mg BID 09/04/20 09:00 09/13/20 09:28 DC 09/12/20 21:09 81 MG Atorvastatin Calcium (Lipitor) 40 mg DAILY 09/04/20 09:00 09/14/20 08:48 40 MG Bisacodyl (Dulcolax Supp) 10 mg PRN DAILY PRN 09/07/20 18:45 09/08/20 08:29 10 MG Bumetanide (Bumex) 1 mg [id number] 09/05/20 09:00 09/14/20 08:47 1 MG Dextrose 1,000 ml @ 25 mls/hr Q24H 09/11/20 19:15 09/11/20 20:29 25 MLS/HR Dextrose (Dextrose 50%-Water Syringe) 12.5 gm PRN Q15MIN PRN 09/03/20 22:15 09/12/20 20:55 12.5 GM Digoxin (Lanoxin) 125 mcg DAILY 09/04/20 09:00 09/04/20 07:47 DC Docusate Sodium (Colace) 100 mg TID 09/04/20 09:00 09/13/20 10:58 100 MG Furosemide (Lasix) 20 mg DAILY 09/11/20 09:00 UNV Insulin Human Lispro (HumaLOG) 0-7 UNITS TIDWMEALS 09/04/20 08:00 09/04/20 12:32 4 UNITS Lactobacillus Rhamnosus (Culturelle) 1 cap BID 09/04/20 21:00 09/14/20 08:48 1 CAP Linezolid (Zyvox) 600 mg BID 09/09/20 12:00 09/14/20 08:47 600 MG Meropenem 500 mg/ Sodium Chloride 50 ml @ 100 mls/hr Q8HRS 09/10/20 14:00 09/14/20 06:00 100 MLS/HR Metoprolol Tartrate (Lopressor) 100 mg DAILY 09/04/20 09:00 09/04/20 07:29 DC Micafungin Sodium 100 mg/Dextrose 100 ml @ 100 mls/hr Q24H 09/11/20 10:00 09/13/20 10:37 100 MLS/HR Morphine Sulfate (Morphine Sulfate) 2 mg PRN Q2HR PRN 09/03/20 21:00 09/04/20 20:59 DC Ondansetron HCl (Zofran) 4 mg PRN Q8HRS PRN 09/03/20 21:00 09/04/20 20:59 DC Phenyleph/Shark Oil/Min Oil/Petrol (Preparation H) 1 mihaela PRN QID PRN 09/10/20 19:15 Piperacillin Sod/ Tazobactam Sod (Zosyn Per Pharmacy) 1 each PRN DAILY PRN 09/03/20 22:15 Cancel Piperacillin Sod/ Tazobactam Sod 3.375 gm/Sodium Chloride 50 ml @ 100 mls/hr Q6HRS 09/04/20 06:00 09/10/20 11:42 DC 09/10/20 05:09 100 MLS/HR Potassium Bicarbonate (Potassium Effervescent Tablet) 40 meq 1X ONCE 09/05/20 08:00 09/05/20 08:01 DC 09/05/20 09:06 40 MEQ Potassium Chloride (Klor-Con) 20 meq 1X ONCE 09/09/20 10:00 09/09/20 10:01 DC 09/09/20 09:32 20 MEQ Prednisone (Prednisone) 40 mg 1X ONCE 09/03/20 22:15 09/03/20 22:21 DC 09/03/20 22:41 40 MG Tamsulosin HCl (Flomax) 0.4 mg QHS 09/05/20 21:00 09/13/20 21:03 0.4 MG Warfarin Sodium (Coumadin - No Dose Today) 1 each 1X WARF ONCE 09/08/20 16:00 09/08/20 16:01 Cancel Warfarin Sodium (Coumadin Per Pharmacy) 1 each PRN DAILY PRN 09/03/20 22:15 09/13/20 09:28 DC 09/13/20 09:06 1 EACH Warfarin Sodium (Coumadin) 4 mg 1X WARF ONCE 09/13/20 16:00 09/13/20 09:28 DC Lab Laboratory Tests Test 09/13/20 11:45 09/13/20 17:02 09/13/20 21:09 09/14/20 06:15 Glucose (Fingerstick) 131 mg/dL (70-99) 97 mg/dL (70-99) 112 mg/dL (70-99) Sodium Level 145 mmol/L (136-145) Potassium Level 3.3 mmol/L (3.5-5.1) Chloride Level 108 mmol/L (98-107) Carbon Dioxide Level 20 mmol/L (21-32) Anion Gap 17 (6-14) Blood Urea Nitrogen 62 mg/dL (8-26) Creatinine 1.8 mg/dL (0.7-1.3) Estimated GFR (Cockcroft-Gault) 43.3 Glucose Level 88 mg/dL (70-99) Calcium Level 8.5 mg/dL (8.5-10.1) Test 09/14/20 08:20 Glucose (Fingerstick) 84 mg/dL (70-99) Results All relevant outside records, renal labs, imaging studies, telemetry/EKG's were reviewed. Justicifation of Admission Dx: Justifications for Admission: Justification of Admission Dx: Yes DEXTER ULLOA MD Sep 14, 2020 09:39
--- NOTE | 2020-09-14 10:00 | PDOC ---
PULMONARY PROGRESS NOTES DATE: 09/14/20 TIME: 10:00 Subjective Remains on room air No SOA or Cough Vitals Vital Signs Date Time Temp Pulse Resp B/P (MAP) Pulse Ox O2 Delivery O2 Flow Rate FiO2 09/14/20 07:50 Room Air 09/14/20 07:00 97.4 91 20 102/49 (66) 96 97.4 ROS: No Nausea, No Chest Pain, No Abdominal Pain, No Increase Cough General: Alert, No acute distress Lungs: Crackles (bases ) Cardiovascular: S1, S2 Abdomen: Soft, Non-tender Neuro Exam: Alert, Oriented Extremities: Other (edema) Skin: Warm, Dry Labs Laboratory Tests Test 09/12/20 11:50 09/12/20 17:10 09/12/20 20:53 09/12/20 21:10 Glucose (Fingerstick) 83 mg/dL (70-99) 73 mg/dL (70-99) 64 mg/dL (70-99) 107 mg/dL (70-99) Test 09/13/20 04:47 09/13/20 06:40 09/13/20 08:12 09/13/20 11:45 Glucose (Fingerstick) 82 mg/dL (70-99) 103 mg/dL (70-99) 131 mg/dL (70-99) White Blood Count 43.6 x10^3/uL (4.0-11.0) Red Blood Count 3.73 x10^6/uL (4.30-5.70) Hemoglobin 10.2 g/dL (13.0-17.5) Hematocrit 33.9 % (39.0-53.0) Mean Corpuscular Volume 91 fL (79-100) Mean Corpuscular Hemoglobin 27 pg (25-35) Mean Corpuscular Hemoglobin Concent 30 g/dL (31-37) Red Cell Distribution Width 25.2 % (11.5-14.5) Platelet Count 387 x10^3/uL (140-400) Neutrophils (%) (Auto) 89 % (31-73) Lymphocytes (%) (Auto) 4 % (24-48) Monocytes (%) (Auto) 1 % (0-9) Eosinophils (%) (Auto) 0 % (0-3) Basophils (%) (Auto) 5 % (0-3) Neutrophils # (Auto) 38.8 x10^3/uL (1.8-7.7) Lymphocytes # (Auto) 1.7 x10^3/uL (1.0-4.8) Monocytes # (Auto) 0.6 x10^3/uL (0.0-1.1) Eosinophils # (Auto) 0.2 x10^3/uL (0.0-0.7) Basophils # (Auto) 2.3 x10^3/uL (0.0-0.2) Segmented Neutrophils % 86 % (35-66) Band Neutrophils % 2 % (0-9) Lymphocytes % 5 % (24-48) Monocytes % 5 % (0-10) Eosinophils % 2 % (0-5) Nucleated Red Blood Cells 1 Dohle Bodies Few Platelet Estimate Adequate (ADEQUATE) Large Platelets Few Giant Platelets Occ Polychromasia Mod Prothrombin Time 25.2 SEC (11.7-14.0) Prothromb Time International Ratio 2.3 (0.8-1.1) Sodium Level 145 mmol/L (136-145) Potassium Level 3.3 mmol/L (3.5-5.1) Chloride Level 108 mmol/L (98-107) Carbon Dioxide Level 22 mmol/L (21-32) Anion Gap 15 (6-14) Blood Urea Nitrogen 55 mg/dL (8-26) Creatinine 1.8 mg/dL (0.7-1.3) Estimated GFR (Cockcroft-Gault) 43.3 BUN/Creatinine Ratio 31 (6-20) Glucose Level 115 mg/dL (70-99) Calcium Level 8.5 mg/dL (8.5-10.1) Magnesium Level 2.2 mg/dL (1.8-2.4) Total Bilirubin 1.7 mg/dL (0.2-1.0) Aspartate Amino Transf (AST/SGOT) 34 U/L (15-37) Alanine Aminotransferase (ALT/SGPT) 7 U/L (16-63) Alkaline Phosphatase 180 U/L (46-116) Total Protein 5.3 g/dL (6.4-8.2) Albumin 1.7 g/dL (3.4-5.0) Albumin/Globulin Ratio 0.5 (1.0-1.7) Test 09/13/20 17:02 09/13/20 21:09 09/14/20 06:15 09/14/20 08:20 Glucose (Fingerstick) 97 mg/dL (70-99) 112 mg/dL (70-99) 84 mg/dL (70-99) Sodium Level 145 mmol/L (136-145) Potassium Level 3.3 mmol/L (3.5-5.1) Chloride Level 108 mmol/L (98-107) Carbon Dioxide Level 20 mmol/L (21-32) Anion Gap 17 (6-14) Blood Urea Nitrogen 62 mg/dL (8-26) Creatinine 1.8 mg/dL (0.7-1.3) Estimated GFR (Cockcroft-Gault) 43.3 Glucose Level 88 mg/dL (70-99) Calcium Level 8.5 mg/dL (8.5-10.1) Laboratory Tests Test 09/13/20 11:45 09/13/20 17:02 09/13/20 21:09 09/14/20 06:15 Glucose (Fingerstick) 131 mg/dL (70-99) 97 mg/dL (70-99) 112 mg/dL (70-99) Sodium Level 145 mmol/L (136-145) Potassium Level 3.3 mmol/L (3.5-5.1) Chloride Level 108 mmol/L (98-107) Carbon Dioxide Level 20 mmol/L (21-32) Anion Gap 17 (6-14) Blood Urea Nitrogen 62 mg/dL (8-26) Creatinine 1.8 mg/dL (0.7-1.3) Estimated GFR (Cockcroft-Gault) 43.3 Glucose Level 88 mg/dL (70-99) Calcium Level 8.5 mg/dL (8.5-10.1) Test 09/14/20 08:20 Glucose (Fingerstick) 84 mg/dL (70-99) Medications Active Scripts Medications Dose Route/Sig Max Daily Dose Days Date Category Dose Instructions Bumetanide 1 Mg Tablet 1 Mg PO BID 07/28/20 Reported Gray 5-325 Tablet (Acetaminophen/Hydrocodone Bitart) 1 Each Tablet 7.5 Mg PO PRN Q6HRS PRN 6 09/20/18 Rx LAST DOSE GIVEN: Colace (Docusate Sodium) 100 Mg Capsule 1 Cap PO TID 6/3/19 Reported Metamucil Powder (Psyllium Seed (with Sugar)) 575 Gm Powder 575 Gm PO DAILY 09/09/18 Reported Atorvastatin Calcium 40 Mg Tablet 1 Tab PO DAILY 08/12/18 Reported Metoprolol Tartrate 100 Mg Tablet 100 Mg PO DAILY 11/08/17 Reported Tamsulosin Hcl 0.4 Mg Cap.er.24h 0.4 Mg PO HS DAILY 11/08/17 Reported Vitamin C (Ascorbic Acid) 500 Mg Tablet 250 Mg PO DAILY 05/08/14 Reported Warfarin Sodium 5 Mg Tablet 1.5 Tab PO QWE 04/18/14 Reported Warfarin Sodium 5 Mg Tablet 1 Tab PO DAILY EXCEPT WED. 04/18/14 Reported Aspirin 81 Mg Tab.chew 81 Mg PO BID 08/22/13 Reported Lanoxin (Digoxin) 125 Mcg Tablet 125 Mcg PO DAILY 08/22/13 Reported Comments 09/11 cxr reviewed 1. Left lower lobe infiltrate superimposed on chronic interstitial changes. 2. Stable small pleural effusions. 3. Cardiomegaly and left greater than right hilar enlargement likely due to pulmonary artery hypertension. ct of abd pelvis chest 1. Enlarged ascending thoracic aorta measuring 4.5 cm. 2. Moderate cardiomegaly. 3. Increased, small pleural effusions and bibasilar atelectasis. Mild emphysema. Chronic appearing interstitial changes or scarring in the lung bases, unchanged. 4. Mild hepatosplenomegaly. 5. Trace ascites. Impression . IMPRESSION: 1. Dyspnea secondary to acute systolic and diastolic congestive heart failure--improving on room air 2. Abnormal chest x-ray. 3. 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 4. Cardiomyopathy. 5. 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 6. Obstructive sleep apnea-hypopnea syndrome, CPAP noncompliant. 7. Paroxysmal atrial fibrillation, on Coumadin. 8. Acute kidney injury/chronic kidney disease. 9. leukocytosis --worsening --ID following 10. Chronic SDH-- neuro SX. following Plan . RECOMMENDATIONS: Titrate FiO2 to keep O2 saturation 90%, on room air Follow ID recs-- leukocytosis CT of chest reviewed, Increased, but small pleural effusions (not amenable to thoracentesis) and bibasilar atelectasis. Mild emphysema. Chronic appearing interstitial changes or scarring in the lung bases, unchanged. Oncology planning for outpt bone marrow biopsy NEBS Follow cardiology recs----Echocardiogram 2019 ejection fraction of 40% Follow nephrology recs - monitor renal function Coumadin on HOLD Neuro surgery following -- SDH DVT/GI PPX D/W RN Pt. is DNR, D/W RN and DR. Olivarez possible DC in 24-48 hours BREN CARDOZO MD Sep 14, 2020 10:00
[2020-09-14] MEDS: MICAFUNGIN 100 MG in IV DEXTROSE 5% 100ML 100 ML IV SCH (10:18)
[2020-09-14 11:00] VITALS: BP 103/50
--- NOTE | 2020-09-14 11:08 | NUR ---
SS following up with discharge planning. SS reviewed pt chart and discussed with pt RN. Pt is currently on room air. COVID19 negative. Physician, RN, and SS discussed goals of care with pt and pt's family. Pt now DNR. Pt and pt's family requesting rehabilitation services at this time and are requesting to go to [facility], ; fax [phone]. PT/OT recommended half-way unit. Pt accepted at [facility]. Pt on IV Micafungin and IV Meropenem. Per physician, pt will be able to transfer to [facility] once transitioned to PO antibiotics. SS will continue to follow for discharge planning.
--- NOTE | 2020-09-14 12:25 | PDOC ---
PROGRESS NOTES Date of Service DATE: 09/14/20 TIME: 12:24 Assessment Problems Medical Problems: (1) CHF (congestive heart failure) Status: Acute Chronic right subdural hematoma Dementia, metabolic encephalopathy Multiple medical problems: pneumonia, heart failure, leukocytosis, questionable etiology, coronary artery disease, atrial fibrillation, anemia and thrombocytosis, on top of his diabetes and COPD Note normal B12 and TSH Plan Medical treatment of subdural, holding anticoagulation and antiplatelet agents. Treat medical issues Discussed with patient's son and , particularly risk, benefits, alternatives regarding anticoagulation. He has a risk of stroke or other embolic event versus risk of another subdural hematoma from any of his several falls. Also discussed with Dr. Skinner Subjective No complaints, denies headache Objective Vital Signs Date Time Temp Pulse Resp B/P (MAP) Pulse Ox O2 Delivery O2 Flow Rate FiO2 09/14/20 11:00 98.0 98 20 103/50 (67) 95 Room Air 98.0 Intake and Output 09/14/20 07:00 Intake Total 1050 ml Balance 1050 ml Intake Oral 1050 ml # Voids 4 # Bowel Movements 1 PHYSICAL EXAM Alert, does not know date or location, does tell me his name PERRL. EOMI. CN: no focal findings. Muscle tone: normal. Muscle strength: 4/5 DTR: 1+ Plantar reflex: Flexor Gait: not examined in bed. Sensory exam: no abnormal findings. No cerebellar signs elicited. Review of Relevant I have reviewed the following items tiffany (where applicable) has been applied. Labs Laboratory Tests Test 09/12/20 17:10 09/12/20 20:53 09/12/20 21:10 09/13/20 04:47 Glucose (Fingerstick) 73 mg/dL (70-99) 64 mg/dL (70-99) 107 mg/dL (70-99) 82 mg/dL (70-99) Test 09/13/20 06:40 09/13/20 08:12 09/13/20 11:45 09/13/20 17:02 White Blood Count 43.6 x10^3/uL (4.0-11.0) Red Blood Count 3.73 x10^6/uL (4.30-5.70) Hemoglobin 10.2 g/dL (13.0-17.5) Hematocrit 33.9 % (39.0-53.0) Mean Corpuscular Volume 91 fL (79-100) Mean Corpuscular Hemoglobin 27 pg (25-35) Mean Corpuscular Hemoglobin Concent 30 g/dL (31-37) Red Cell Distribution Width 25.2 % (11.5-14.5) Platelet Count 387 x10^3/uL (140-400) Neutrophils (%) (Auto) 89 % (31-73) Lymphocytes (%) (Auto) 4 % (24-48) Monocytes (%) (Auto) 1 % (0-9) Eosinophils (%) (Auto) 0 % (0-3) Basophils (%) (Auto) 5 % (0-3) Neutrophils # (Auto) 38.8 x10^3/uL (1.8-7.7) Lymphocytes # (Auto) 1.7 x10^3/uL (1.0-4.8) Monocytes # (Auto) 0.6 x10^3/uL (0.0-1.1) Eosinophils # (Auto) 0.2 x10^3/uL (0.0-0.7) Basophils # (Auto) 2.3 x10^3/uL (0.0-0.2) Segmented Neutrophils % 86 % (35-66) Band Neutrophils % 2 % (0-9) Lymphocytes % 5 % (24-48) Monocytes % 5 % (0-10) Eosinophils % 2 % (0-5) Nucleated Red Blood Cells 1 Dohle Bodies Few Platelet Estimate Adequate (ADEQUATE) Large Platelets Few Giant Platelets Occ Polychromasia Mod Prothrombin Time 25.2 SEC (11.7-14.0) Prothromb Time International Ratio 2.3 (0.8-1.1) Sodium Level 145 mmol/L (136-145) Potassium Level 3.3 mmol/L (3.5-5.1) Chloride Level 108 mmol/L (98-107) Carbon Dioxide Level 22 mmol/L (21-32) Anion Gap 15 (6-14) Blood Urea Nitrogen 55 mg/dL (8-26) Creatinine 1.8 mg/dL (0.7-1.3) Estimated GFR (Cockcroft-Gault) 43.3 BUN/Creatinine Ratio 31 (6-20) Glucose Level 115 mg/dL (70-99) Calcium Level 8.5 mg/dL (8.5-10.1) Magnesium Level 2.2 mg/dL (1.8-2.4) Total Bilirubin 1.7 mg/dL (0.2-1.0) Aspartate Amino Transf (AST/SGOT) 34 U/L (15-37) Alanine Aminotransferase (ALT/SGPT) 7 U/L (16-63) Alkaline Phosphatase 180 U/L (46-116) Total Protein 5.3 g/dL (6.4-8.2) Albumin 1.7 g/dL (3.4-5.0) Albumin/Globulin Ratio 0.5 (1.0-1.7) Glucose (Fingerstick) 103 mg/dL (70-99) 131 mg/dL (70-99) 97 mg/dL (70-99) Test 09/13/20 21:09 09/14/20 06:15 09/14/20 08:20 Glucose (Fingerstick) 112 mg/dL (70-99) 84 mg/dL (70-99) Sodium Level 145 mmol/L (136-145) Potassium Level 3.3 mmol/L (3.5-5.1) Chloride Level 108 mmol/L (98-107) Carbon Dioxide Level 20 mmol/L (21-32) Anion Gap 17 (6-14) Blood Urea Nitrogen 62 mg/dL (8-26) Creatinine 1.8 mg/dL (0.7-1.3) Estimated GFR (Cockcroft-Gault) 43.3 Glucose Level 88 mg/dL (70-99) Calcium Level 8.5 mg/dL (8.5-10.1) Laboratory Tests Test 09/13/20 17:02 09/13/20 21:09 09/14/20 06:15 09/14/20 08:20 Glucose (Fingerstick) 97 mg/dL (70-99) 112 mg/dL (70-99) 84 mg/dL (70-99) Sodium Level 145 mmol/L (136-145) Potassium Level 3.3 mmol/L (3.5-5.1) Chloride Level 108 mmol/L (98-107) Carbon Dioxide Level 20 mmol/L (21-32) Anion Gap 17 (6-14) Blood Urea Nitrogen 62 mg/dL (8-26) Creatinine 1.8 mg/dL (0.7-1.3) Estimated GFR (Cockcroft-Gault) 43.3 Glucose Level 88 mg/dL (70-99) Calcium Level 8.5 mg/dL (8.5-10.1) Microbiology 09/11/20 Blood Culture - Preliminary, Resulted NO GROWTH AFTER 3 DAYS Medications Current Medications Furosemide (Lasix) 40 mg 1X ONCE IVP Last administered on 09/03/20at 21:07; Start 09/03/20 at 21:00; Stop 09/03/20 at 21:01; Status DC Piperacillin Sod/ Tazobactam Sod 3.375 gm/Sodium Chloride 50 ml @ 100 mls/hr 1X ONCE IV Last administered on 09/03/20at 21:08; Start 09/03/20 at 21:00; Stop 09/03/20 at 21:29; Status DC Ondansetron HCl (Zofran) 4 mg PRN Q8HRS PRN IV NAUSEA/VOMITING; Start 09/03/20 at 21:00; Stop 09/04/20 at 20:59; Status DC Morphine Sulfate (Morphine Sulfate) 2 mg PRN Q2HR PRN IV PAIN; Start 09/03/20 at 21:00; Stop 09/04/20 at 20:59; Status DC Acetaminophen (Tylenol) 650 mg PRN Q4HRS PRN PO FEVER > 100.3'F; Start 09/03/20 at 21:00; Stop 09/04/20 at 20:59; Status DC Ascorbic Acid (Vitamin C) 250 mg DAILY PO Last administered on 09/14/20at 08:48; Start 09/04/20 at 09:00 Aspirin (Aspirin Chewable) 81 mg BID PO Last administered on 09/12/20at 21:09; Start 09/04/20 at 09:00; Stop 09/13/20 at 09:28; Status DC Atorvastatin Calcium (Lipitor) 40 mg DAILY PO Last administered on 09/14/20at 08:48; Start 09/04/20 at 09:00 Bumetanide (Bumex) 1 mg BID92 PO ; Start 09/04/20 at 09:00; Stop 09/04/20 at 07:53; Status DC Digoxin (Lanoxin) 125 mcg DAILY PO ; Start 09/04/20 at 09:00; Stop 09/04/20 at 07:47; Status DC Docusate Sodium (Colace) 100 mg TID PO Last administered on 09/13/20 10:58; Start 09/04/20 at 09:00 Acetaminophen/ Hydrocodone Bitart (Lortab 5/325) 1 tab PRN Q6HRS PRN PO PAIN Last administered on 09/11/20 03:57; Start 09/03/20 at 22:15 Metoprolol Tartrate (Lopressor) 100 mg DAILY PO ; Start 09/04/20 at 09:00; Stop 09/04/20 at 07:29; Status DC Warfarin Sodium (Coumadin Per Pharmacy) 1 each PRN DAILY PRN MC SEE COMMENTS Last administered on 09/13/20 09:06; Start 09/03/20 at 22:15; Stop 09/13/20 at 09:28; Status DC Piperacillin Sod/ Tazobactam Sod (Zosyn Per Pharmacy) 1 each PRN DAILY PRN MC SEE COMMENTS; Start 09/03/20 at 22:15; Status Cancel Albuterol/ Ipratropium (Duoneb) 3 ml RTQID NEB Last administered on 09/10/20at 20:11; Start 09/04/20 at 08:00; Stop 09/12/20 at 08:01; Status DC Prednisone (Prednisone) 40 mg 1X ONCE PO Last administered on 09/03/20at 22:41; Start 09/03/20 at 22:15; Stop 09/03/20 at 22:21; Status DC Insulin Human Lispro (HumaLOG) 0-7 UNITS TIDWMEALS SQ Last administered on 09/04/20at 12:32; Start 09/04/20 at 08:00 Dextrose (Dextrose 50%-Water Syringe) 12.5 gm PRN Q15MIN PRN IV SEE COMMENTS Last administered on 09/12/20at 20:55; Start 09/03/20 at 22:15 Piperacillin Sod/ Tazobactam Sod 3.375 gm/Sodium Chloride 50 ml @ 100 mls/hr Q6HRS IV Last administered on 09/10/20 05:09; Start 09/04/20 at 06:00; Stop 09/10/20 at 11:42; Status DC Warfarin Sodium (Coumadin - No Dose Today) 1 each 1X WARF ONCE MC Last administered on 09/04/20at 16:00; Start 09/04/20 at 16:00; Stop 09/04/20 at 16:01; Status DC Bumetanide (Bumex) 2.5 mg BID92 IV Last administered on 09/04/20at 15:23; Start 09/04/20 at 09:00; Stop 09/05/20 at 07:46; Status DC Lactobacillus Rhamnosus (Culturelle) 1 cap BID PO Last administered on 09/14/20at 08:48; Start 09/04/20 at 21:00 Tamsulosin HCl (Flomax) 0.4 mg QHS PO Last administered on 09/13/20at 21:03; Start 09/05/20 at 21:00 Bumetanide (Bumex) 1 mg BID92 IV Last administered on 09/14/20at 08:47; Start 09/05/20 at 09:00 Potassium Bicarbonate (Potassium Effervescent Tablet) 40 meq 1X ONCE PO Last administered on 09/05/20at 09:06; Start 09/05/20 at 08:00; Stop 09/05/20 at 08:01; Status DC Warfarin Sodium (Coumadin - No Dose Today) 1 each 1X WARF ONCE MC Last administered on 09/05/20at 15:58; Start 09/05/20 at 16:00; Stop 09/05/20 at 16:01; Status DC Warfarin Sodium (Coumadin - No Dose Today) 1 each 1X WARF ONCE MC Last administered on 09/06/20at 16:00; Start 09/06/20 at 16:00; Stop 09/06/20 at 16:01; Status DC Warfarin Sodium (Coumadin - No Dose Today) 1 each 1X WARF ONCE MC ; Start 09/07/20 at 16:00; Stop 09/07/20 at 16:01; Status DC Bisacodyl (Dulcolax Supp) 10 mg 1X ONCE MI ; Start 09/07/20 at 13:00; Stop 09/07/20 at 18:32; Status DC Bisacodyl (Dulcolax Supp) 10 mg PRN DAILY PRN MI CONSTIPATION Last administered on 09/08/20at 08:29; Start 09/07/20 at 18:45 Warfarin Sodium (Coumadin - No Dose Today) 1 each 1X WARF ONCE MC ; Start 09/08/20 at 16:00; Stop 09/08/20 at 16:01; Status Cancel Warfarin Sodium (Coumadin) 4 mg 1X WARF ONCE PO Last administered on 09/08/20at 17:29; Start 09/08/20 at 16:00; Stop 09/08/20 at 16:01; Status DC Warfarin Sodium (Coumadin) 4 mg 1X WARF ONCE PO Last administered on 09/09/20at 16:53; Start 09/09/20 at 16:00; Stop 09/09/20 at 16:01; Status DC Potassium Chloride (Klor-Con) 20 meq 1X ONCE PO Last administered on 09/09/20at 09:32; Start 09/09/20 at 10:00; Stop 09/09/20 at 10:01; Status DC Linezolid (Zyvox) 600 mg BID PO Last administered on 09/14/20at 08:47; Start 09/09/20 at 12:00 Warfarin Sodium (Coumadin) 4 mg 1X WARF ONCE PO Last administered on 09/10/20at 16:47; Start 09/10/20 at 16:00; Stop 09/10/20 at 16:01; Status DC Meropenem 500 mg/ Sodium Chloride 50 ml @ 100 mls/hr Q8HRS IV Last administered on 09/14/20at 06:00; Start 09/10/20 at 14:00 Furosemide (Lasix) 20 mg DAILY IVP ; Start 09/11/20 at 09:00; Status UNV Phenyleph/Shark Oil/Min Oil/Petrol (Preparation H) 1 mihaela PRN QID PRN RC RECTAL PAIN; Start 09/10/20 at 19:15 Micafungin Sodium 100 mg/Dextrose 100 ml @ 100 mls/hr Q24H IV Last administered on 09/14/20at 10:18; Start 09/11/20 at 10:00 Warfarin Sodium (Coumadin) 4 mg 1X WARF ONCE PO ; Start 09/11/20 at 16:00; Stop 09/11/20 at 16:01; Status DC Dextrose 1,000 ml @ 25 mls/hr Q24H IV Last administered on 09/11/20at 20:29; Start 09/11/20 at 19:15 Warfarin Sodium (Coumadin) 3 mg 1X WARF ONCE PO ; Start 09/12/20 at 16:00; Stop 09/13/20 at 09:28; Status DC Albuterol Sulfate (Ventolin Neb Soln) 2.5 mg PRN Q6HRS PRN NEB SHORTNESS OF BREATH; Start 09/12/20 at 08:15 Warfarin Sodium (Coumadin) 4 mg 1X WARF ONCE PO ; Start 09/13/20 at 16:00; Stop 09/13/20 at 09:28; Status DC Active Scripts Active [place] 5-325 Tablet (Acetaminophen/Hydrocodone Bitart) 1 Each Tablet 7.5 Mg PO PRN Q6HRS PRN 6 Days LAST DOSE GIVEN: Reported Warfarin Sodium 2 Mg Tablet 4 Mg PO Warfarin Sodium 2 Mg Tablet 6 Mg PO QMTH Bumetanide 1 Mg Tablet 1 Mg PO BID Colace (Docusate Sodium) 100 Mg Capsule 1 Cap PO TID Metamucil Powder (Psyllium Seed (with Sugar)) 575 Gm Powder 575 Gm PO DAILY Atorvastatin Calcium 40 Mg Tablet 1 Tab PO DAILY Metoprolol Tartrate 100 Mg Tablet 100 Mg PO DAILY Tamsulosin Hcl 0.4 Mg Cap.er.24h 0.4 Mg PO HS DAILY Vitamin C (Ascorbic Acid) 500 Mg Tablet 250 Mg PO DAILY Aspirin 81 Mg Tab.chew 81 Mg PO BID Lanoxin (Digoxin) 125 Mcg Tablet 125 Mcg PO DAILY Vitals/I & O Vital Sign - Last 24 Hours 09/13/20 09/13/20 09/13/20 09/13/20 15:00 19:40 20:00 23:15 Temp 98.8 97.5 97.9 98.8 97.5 97.9 Pulse 99 59 83 Resp 17 16 18 B/P (MAP) 106/59 (75) 102/50 (67) 109/49 (69) Pulse Ox 92 90 95 O2 Delivery Room Air Room Air Room Air Room Air 09/14/20 09/14/20 09/14/20 09/14/20 03:56 07:00 07:50 11:00 Temp 97.6 97.4 98.0 97.6 97.4 98.0 Pulse 82 91 98 Resp 16 20 20 B/P (MAP) 90/45 (60) 102/49 (66) 103/50 (67) Pulse Ox 90 96 95 O2 Delivery Room Air Room Air Room Air Room Air Intake and Output 09/13/20 09/13/20 09/14/20 15:00 23:00 07:00 Intake Total 450 ml 600 ml 0 ml Balance 450 ml 600 ml 0 ml Justicifation of Admission Dx: Justifications for Admission: Justification of Admission Dx: Yes LEENA BRICE MD Sep 14, 2020 12:25
--- NOTE | 2020-09-14 13:16 | PDOC ---
[facility] [facility] PROGRESS NOTE Date of Service DOS: DATE: 09/14/20 TIME: 13:03 Chief Complaint Chief Complaint impression Acute on chronic combined systolic and diastolic heart failure. We will diurese with intravenous Bumex. 2D echo in September 2019 showed LVEF 40%. Coronary artery disease: Patient has known chronic total occlusion of LAD with collaterals, presently stable and chest pain-free. Lexiscan nuclear stress test in March 2020 showed large inferior infarct without any significant ischemia. Continue current secondary prevention measures. Sick sinus syndrome s/p permanent pacemaker implantation with more recent generator change. Recent device check showed normal function. He denied any syncope or near syncope. Permanent atrial fibrillation: Telemetry showed demand pacing. Patient on warfarin for stroke prophylaxis. Check PT/INR. Hypertension - Controlled. Will back off on his BB. He is actually on 100mg metoprolol tartrate Hyperlipidemia - Continue statin Diabetes mellitus type 2 - diet controlled, A1c previously 5.8 Severe Protein calorie malnutrition - severe given his edema and albumin. 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 Normal LV systolic function. EF 60% plan FEN - Cardiac ADA diet PPX - warfarin CODE - FULL Dispo - inpatient CVC for CHF exacerbation Hyperlipidemia - Continue statin Diabetes mellitus type 2 - diet controlled, A1c previously 5.8 Severe Protein calorie malnutrition - severe given his edema and albumin. Diet ician to see D/W RN Defer to pulmonology regarding management of acute hypoxic respiratory failure and antibiotics ONCOLOGY plan on seeing patient in follow-up as outpatient to reassess CBC and discussed results of BCR ABL FISH and JAK2 mutation testing ID CONSULT 37 min pt exam, chart review, > 50% of time spent with exam, chart review, pt care coordination Worsening interstitial changes throughout both lungs, with worsening perihilar consolidation. Findings may reflect progressive interstitial pulmonary edema or infection. CXR 6- Continue Merrem ( 09/10) and Zyvox,was on zosyn CONTINUE micafungin History of Present Illness History of Present Illness Mr Rivero is an 89yo M w/ PMHx DM2, HLD, HTN, afib, SSS s/p PPM, CAD, chronic systolic CHF who presented to ED c/o for weakness and dyspnea. Also complains of dyspnea worsening over weeks, with a few days of noted LE edema is worse with cough in the morning that is productive of white sputum. he has cough at times, He denied any chest pain, palpitations or syncope. Given 1 dose iv lasix in ED 40mg, < 500 uop after, still feeling short of breath. He follows with Dr. Santoyo and has been recently changed to Bumex last month. Chest radiograph with interstitial edema. Labs with WBC 27.3, Hb 10.3, platelets 454, NA 145, K4.7, BUN 58, CR 2.1, INR 3.2 TSH 5.5, digoxin level 2.2, albumin 2.7, bilirubin 2.2, AST 56 ALT 12 alkaline phosphatase 138 NT proBNP 31,348 Admitted for further treatment. 09/04: Afebrile. WBC still high. Reasonably good urine output. A little confused Febrile. 1.3 L urine output. Still with very swollen lower extremities. No chest pain little bit short of breath. Not on O2 today. 09-06 Still with very swollen lower extremities. No chest pain little bit short of breath. Acute on chronic combined systolic and diastolic heart failure. We will diurese with intravenous Bumex. 2D echo in September 2019 showed LVEF 40%. Coronary artery disease: Patient has known chronic total occlusion of LAD with collaterals, presently stable and chest pain-free. Lexiscan nuclear stress test in March 2020 showed large inferior infarct without any significant ischemia. Continue current secondary prevention measures. Sick sinus syndrome s/p permanent pacemaker implantation with more recent generator change. Recent device check showed normal function. He denied any syncope or near syncope. Permanent atrial fibrillation: Telemetry showed demand pacing. Patient on warfarin for stroke prophylaxis. Check PT/INR. Hypertension - Controlled. Will back off on his BB. He is actually on 100mg metoprolol tartrate Hyperlipidemia - Continue statin Diabetes mellitus type 2 - diet controlled, A1c previously 5.8 Severe Protein calorie malnutrition - severe given his edema and albumin. Manager Universal to see D/W RN 09/07 CR 2.2 LESS swollen lower extremities. No chest pain little bit short of breath. Acute on chronic combined systolic and diastolic heart failure. We will diurese with intravenous Bumex. 2D echo in September 2019 showed LVEF 40%. Coronary artery disease: Patient has known chronic total occlusion of LAD with collaterals, presently stable and chest pain-free. Lexiscan nuclear stress test in March 2020 showed large inferior infarct without any significant ischemia. Continue current secondary prevention measures. Sick sinus syndrome s/p permanent pacemaker implantation with more recent generator change. Recent device check showed normal function. He denied any syncope or near syncope. Permanent atrial fibrillation: Telemetry showed demand pacing. Patient on warfarin for stroke prophylaxis. Check PT/INR. Hypertension - Controlled. Will back off on his BB. He is actually on 100mg metoprolol tartrate Hyperlipidemia - Continue statin Diabetes mellitus type 2 - diet controlled, A1c previously 5.8 Severe Protein calorie malnutrition - severe given his edema and albumin. Manager Universal to see D/W RN 09/08 CR 2.0 wbc 30.3 CAD; catheterization 08/2018 with BRIDGE RIGGER of LAD with collaterals, which is unchanged from previous cath in 2013. clinically stable, CP free. 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 Permanent AFIB; rate controlled with BB. on warfarin for stroke prevention. 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 No chest pain little bit short of breath. Acute on chronic combined systolic and diastolic heart failure. We will diurese with intravenous Bumex. 2D echo in September 2019 showed LVEF 40%. Coronary artery disease: Patient has known chronic total occlusion of LAD with collaterals, presently stable and chest pain-free. Lexiscan nuclear stress test in March 2020 showed large inferior infarct without any significant ischemia. Continue current secondary prevention measures. Sick sinus syndrome s/p permanent pacemaker implantation with more recent generator change. Recent device check showed normal function. He denied any syncope or near syncope. Permanent atrial fibrillation: Telemetry showed demand pacing. Patient on warfarin for stroke prophylaxis. Check PT/INR. Hypertension - Controlled. Will back off on his BB. He is actually on 100mg metoprolol tartrate Hyperlipidemia - Continue statin Diabetes mellitus type 2 - diet controlled, A1c previously 5.8 Severe Protein calorie malnutrition - severe given his edema and albumin. Manager Universal to see D/W RN 37 min pt exam, chart review, > 50% of time spent with exam, chart review, pt care coordination 09/09 CR 2.0 wbc 30.3 CAD; catheterization 08/2018 with BRIDGE RIGGER of LAD with collaterals, which is unchanged from previous cath in 2013. clinically stable, CP free. 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 Permanent AFIB; rate controlled with BB. on warfarin for stroke prevention. 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 No chest pain little bit short of breath. Acute on chronic combined systolic and diastolic heart failure. We will diurese with intravenous Bumex. 2D echo in September 2019 showed LVEF 40%. Coronary artery disease: Patient has known chronic total occlusion of LAD with collaterals, presently stable and chest pain-free. Lexiscan nuclear stress test in March 2020 showed large inferior infarct without any significant ischemia. Continue current secondary prevention measures. Sick sinus syndrome s/p permanent pacemaker implantation with more recent generator change. Recent device check showed normal function. He denied any syncope or near syncope. Permanent atrial fibrillation: Telemetry showed demand pacing. Patient on warfarin for stroke prophylaxis. Check PT/INR. Hypertension - Controlled. Will back off on his BB. 100mg metoprolol tartrate Hyperlipidemia - Continue statin Diabetes mellitus type 2 - diet controlled, A1c previously 5.8 Severe Protein calorie malnutrition - severe given his edema and albumin. Manager Universal to see D/W RN Defer to pulmonology regarding management of acute hypoxic respiratory failure and antibiotics ONCOLOGY plan on seeing patient in follow-up as outpatient to reassess CBC and discussed results of BCR ABL FISH and JAK2 mutation testing ID CONSULT 36 min pt exam, chart review, > 50% of time spent with exam, chart review, pt care coordination Worsening interstitial changes throughout both lungs, with worsening perihilar consolidation. Findings may reflect progressive interstitial pulmonary edema or infection. CXR 09-15 long discussion with family, , 2 sons they are not sure he desires a BM BX , will cont to monitor CR 2.0 wbc 31 CAD; catheterization 08/2018 with BRIDGE RIGGER of LAD with collaterals, which is unchanged from previous cath in 2013. clinically stable, CP free. 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 Permanent AFIB; rate controlled with BB. on warfarin for stroke prevention. 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 No chest pain little bit short of breath. Acute on chronic combined systolic and diastolic heart failure. We will diurese with intravenous Bumex. 2D echo in September 2019 showed LVEF 40%. Coronary artery disease: Patient has known chronic total occlusion of LAD with collaterals, presently stable and chest pain-free. Lexiscan nuclear stress test in March 2020 showed large inferior infarct without any significant ischemia. Continue current secondary prevention measures. Sick sinus syndrome s/p permanent pacemaker implantation with more recent gene rator change. Recent device check showed normal function. He denied any syncope or near syncope. Permanent atrial fibrillation: Telemetry showed demand pacing. Patient on warfarin for stroke prophylaxis. Check PT/INR. Hypertension - Controlled. Will back off on his BB. 100mg metoprolol tartrate Hyperlipidemia - Continue statin Diabetes mellitus type 2 - diet controlled, A1c previously 5.8 Severe Protein calorie malnutrition - severe given his edema and albumin. Manager Universal to see D/W RN Defer to pulmonology regarding management of acute hypoxic respiratory failure and antibiotics ONCOLOGY plan on seeing patient in follow-up as outpatient to reassess CBC and discussed results of BCR ABL FISH and JAK2 mutation testing ID CONSULT 38 min pt exam, chart review, > 50% of time spent with exam, chart review, pt care coordination Worsening interstitial changes throughout both lungs, with worsening perihilar consolidation. Findings may reflect progressive interstitial pulmonary edema or infection. CXR -09/11 long discussion with family, , 2 sons they are not sure he desires a BM BX , will cont to monitor CR 2.0 wbc 31 CAD; catheterization 08/2018 with BRIDGE RIGGER of LAD with collaterals, which is unchanged from previous cath in 2013. clinically stable, CP free. 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 Permanent AFIB; rate controlled with BB. on warfarin for stroke prevention. 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 No chest pain little bit short of breath. Acute on chronic combined systolic and diastolic heart failure. We will diurese with intravenous Bumex. 2D echo in September 2019 showed LVEF 40%. Coronary artery disease: Patient has known chronic total occlusion of LAD with collaterals, presently stable and chest pain-free. Lexiscan nuclear stress test in March 2020 showed large inferior infarct without any significant ischemia. Continue current secondary prevention measures. Sick sinus syndrome s/p permanent pacemaker implantation with more recent generator change. Recent device check showed normal function. He denied any syncope or near syncope. Permanent atrial fibrillation: Telemetry showed demand pacing. Patient on warfarin for stroke prophylaxis. Check PT/INR. Hypertension - Controlled. Will back off on his BB. 100mg metoprolol tartrate Hyperlipidemia - Continue statin Diabetes mellitus type 2 - diet controlled, A1c previously 5.8 Severe Protein calorie malnutrition - severe given his edema and albumin. Manager Universal to see D/W RN Defer to pulmonology regarding management of acute hypoxic respiratory failure and antibiotics ONCOLOGY plan on seeing patient in follow-up as outpatient to reassess CBC and discussed results of BCR ABL FISH and JAK2 mutation testing ID CONSULT 36 min pt exam, chart review, > 50% of time spent with exam, chart review, pt care coordination Worsening interstitial changes throughout both lungs, with worsening perihilar consolidation. Findings may reflect progressive interstitial pulmonary edema or infection. CXR - Continue Merrem ( 09/10) and Zyvox,was on zosyn add micafungin 09/12 long discussion with family, , 2 sons 09-11 they are not sure he desires a BM BX , will cont to monitor CR 2.0 wbc 31 CAD; catheterization 08/2018 with BRIDGE RIGGER of LAD with collaterals, which is unchanged from previous cath in 2013. clinically stable, CP free. 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 Permanent AFIB; rate controlled with BB. on warfarin for stroke prevention. 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 No chest pain little bit short of breath. Acute on chronic combined systolic and diastolic heart failure. We will diurese with intravenous Bumex. 2D echo in September 2019 showed LVEF 40%. Coronary artery disease: Patient has known chronic total occlusion of LAD with collaterals, presently stable and chest pain-free. Lexiscan nuclear stress test in March 2020 showed large inferior infarct without any significant ischemia. Continue current secondary prevention measures. Sick sinus syndrome s/p permanent pacemaker implantation with more recent gener ator change. Recent device check showed normal function. He denied any syncope or near syncope. Permanent atrial fibrillation: Telemetry showed demand pacing. Patient on warfarin for stroke prophylaxis. Check PT/INR. Hypertension - Controlled. Will back off on his BB. 100mg metoprolol tartrate Hyperlipidemia - Continue statin Diabetes mellitus type 2 - diet controlled, A1c previously 5.8 Severe Protein calorie malnutrition - severe given his edema and albumin. Manager Universal to see D/W RN Defer to pulmonology regarding management of acute hypoxic respiratory failure and antibiotics ONCOLOGY plan on seeing patient in follow-up as outpatient to reassess CBC and discussed results of BCR ABL FISH and JAK2 mutation testing ID CONSULT 37 min pt exam, chart review, > 50% of time spent with exam, chart review, pt care coordination Worsening interstitial changes throughout both lungs, with worsening perihilar consolidation. Findings may reflect progressive interstitial pulmonary edema or infection. CXR 09-09 Continue Merrem ( 09/10) and Zyvox,was on zosyn CONTINUE micafungin 09/13 Afebrile overnight, currently breathing on room air. WBC 43.6 today. Chest x- ray showing left lower lobe pneumonia as possible source of leukocytosis. We will continue treatment with Zosyn, Zyvox, and micafungin. Repeat urinalysis and urine culture pending. Bilateral lower extremity ultrasounds negative for DVT. Discussed with (POOL), who is opting to defer outpatient bone marrow biopsy and further work-up for possible leukemia. She is preferring instead to proceed with medical management. Discussed with DPOA and son about CODE STATUS, they are currently undecided and will revisit this question at a later time. Charts, labs, imaging reviewed, and discussed with RN. 09/14 No acute events overnight, afebrile. Patient with no concerns today; no family is at bedside at the time of my evaluation. He was recommended to continue meropenem, Zyvox, and micafungin, per ID. CT head yesterday showed small to moderate subacute appearing right frontal subdural hematoma measuring 5 mm with rightward midline shift. Consult was placed to neurosurgery. Warfarin is being held and neurosurgery recommended CT head in 7 to [address] Nicholas, patient would benefit from some rehab at [facility] and we can repeat CT head in about a week's time. We will continue current treatment and plan for [facility] likely tomorrow or the next day. Vitals/I&O Vitals/I&O: Vital Signs Date Time Temp Pulse Resp B/P (MAP) Pulse Ox O2 Delivery O2 Flow Rate FiO2 09/14/20 11:00 98.0 98 20 103/50 (67) 95 Room Air 98.0 I & O 09/13/20 09/13/20 09/14/20 15:00 23:00 07:00 Intake Total 450 ml 600 ml 0 ml Balance 450 ml 600 ml 0 ml Physical Exam Physical Exam: GENERAL: CONFUSED male, not in distress distress. Answers only a few questions HEENT: Normocephalic, atraumatic. Oral mucosa moist. NECK: Supple. LUNGS: Mild crackles. HEART: S1, S2. Pacemaker without signs of complication. ABDOMEN: Soft, nontender, and nondistended. EXTREMITIES: No cyanosis bilateral lower extremity swelling present. NO Calf tenderness present left lower extremity MSK changes suggestive of DJD, pain in left knee, no effusion DERMATOLOGIC: Warm, dry. No generalized rash. NEUROLOGIC: Alert, awake, answers questions appropriately. PSYCHIATRIC: Calm and cooperative. General: Alert, Cooperative, No acute distress Heart: Normal S1, Normal S2, No murmurs Lungs: Crackles (bases ) Abdomen: Normal bowel sounds, Soft, No tenderness Extremities: No clubbing, No cyanosis Skin: No rashes, No breakdown Labs Labs: Laboratory Tests Test 09/13/20 17:02 09/13/20 21:09 09/14/20 06:15 09/14/20 08:20 Glucose (Fingerstick) 97 mg/dL (70-99) 112 mg/dL (70-99) 84 mg/dL (70-99) Sodium Level 145 mmol/L (136-145) Potassium Level 3.3 mmol/L (3.5-5.1) Chloride Level 108 mmol/L (98-107) Carbon Dioxide Level 20 mmol/L (21-32) Anion Gap 17 (6-14) Blood Urea Nitrogen 62 mg/dL (8-26) Creatinine 1.8 mg/dL (0.7-1.3) Estimated GFR (Cockcroft-Gault) 43.3 Glucose Level 88 mg/dL (70-99) Calcium Level 8.5 mg/dL (8.5-10.1) Test 09/14/20 12:28 Glucose (Fingerstick) 126 mg/dL (70-99) Assessment and Plan Assessmemt and Plan Problems Medical Problems: (1) CHF (congestive heart failure) Status: Acute Comment Review of Relevant I have reviewed the following items tiffany (where applicable) has been applied. Justifications for Admission Other Justification ANEESH PRABHAKAR MD Sep 14, 2020 13:16
[2020-09-14] MEDS ORDERED: PHYTONADIONE (VIT K1) IV 10 MG in IV DEXTROSE 5% 50 ML IV ONE (14:00)
[2020-09-14 15:00] VITALS: BP 107/47
[2020-09-14] MEDS: HYDROcodone/APAP 5/325MG 1 TAB TABLET PO PRN (18:23)
[2020-09-14 19:00] VITALS: BP 95/32
[2020-09-14] MEDS: IV DEXTROSE 5% 1,000 ML IV SCH (19:15)
[2020-09-14] MEDS: TAMSULOSIN 0.4 MG CAP.ER.24H. PO SCH (21:06)
[2020-09-14 22:52] VITALS: BP 107/46
[2020-09-15 03:00] VITALS: BP 99/51
[2020-09-15] MEDS: MEROPENEM 500 MG in IV NORMAL SALINE 50ML 50 ML IV SCH ×4 (06:00→21:56)
[2020-09-15 07:00] VITALS: BP 89/43
[2020-09-15 07:49] LABS: BASO % 0 % (0-3); EOS # 0.1 x10^3/uL (0.0-0.7); EOS % 0 % (0-3); HEMOGLOBIN 9.8 g/dL (13.0-17.5); LYMPH # 1.3 x10^3/uL (1.0-4.8); LYMPH % 3 % (24-48); MEAN CORPUSCULAR HEMOGLOBIN 28 pg (25-35); MEAN CORPUSCULAR HGB CONC 30 g/dL (31-37); MEAN CORPUSCULAR VOLUME 93 fL (79-100); MONO # 0.8 x10^3/uL (0.0-1.1); MONO % 2 % (0-9); NEUT # 47.3 x10^3/uL (1.8-7.7); NEUT % 96 % (31-73); PLATELET COUNT 193 x10^3/uL (140-400); RED BLOOD COUNT 3.54 x10^6/uL (4.30-5.70); RED CELL DISTRIBUTION WIDTH 24.7 % (11.5-14.5)
[2020-09-15] MEDS: INSULIN LISPRO 300 UNITS/3 ML VIAL. SQ SCH ×3 (08:00→17:00)
--- NOTE | 2020-09-15 08:04 | PDOC ---
Infectious Disease Note Subjective Subjective Patient is awake feeling okay ROS ROS No nausea vomiting diarrhea chest pain shortness of breath Vital Sign Vital Signs Vital Signs Date Time Temp Pulse Resp B/P (MAP) Pulse Ox O2 Delivery O2 Flow Rate FiO2 09/15/20 03:00 97.9 88 16 99/51 (67) 97 Room Air 97.9 Physical Exam PHYSICAL EXAM GENERAL: CONFUSED male, not in distress distress. Answers only a few questions HEENT: Normocephalic, atraumatic. Oral mucosa moist. NECK: Supple. LUNGS: Mild crackles. HEART: S1, S2. Pacemaker without signs of complication. ABDOMEN: Soft, nontender, and nondistended. EXTREMITIES: No cyanosis bilateral lower extremity swelling present. NO Calf tenderness present left lower extremity MSK changes suggestive of DJD, pain in left knee, no effusion DERMATOLOGIC: Warm, dry. No generalized rash. NEUROLOGIC: Alert, awake, answers questions appropriately. PSYCHIATRIC: Calm and cooperative. Labs Lab Laboratory Tests Test 09/14/20 08:20 09/14/20 12:28 09/14/20 17:38 09/14/20 20:45 Glucose (Fingerstick) 84 mg/dL (70-99) 126 mg/dL (70-99) 102 mg/dL (70-99) 124 mg/dL (70-99) Micro Microbiology 09/11/20 Blood Culture - Preliminary, Resulted NO GROWTH AFTER 1 DAY Objective Assessment Fever has improved 1. Leukocytosis, leukemoid reaction versus leukemia 2. Acute on chronic heart failure. 3. Coronary artery disease. 4. Permanent atrial fibrillation. 5. Diabetes. 6. Dysphagia. 7. Anemia and thrombocytosis. 8. Generalized debility. 9. Constipation 10.Lt knee pain ? gout 11. LLE pain US neg for DVT Plan Plan of Care Continue Merrem ( 09/10) and Zyvox,was on zosyn, cont micafungin F/U labs and repeat cultures Oncology input noted, bone marrow biopsy scheduled as outpatient ?? CT abdomen pelvis and chest without reviewed Monitor labs and cultures If patient has diarrhea check C. difficile Maintain aspiration precaution. D/W RN prognosis poor need comfort care AUSTIN TIJERINA MD Sep 15, 2020 08:04
[2020-09-15 08:21] LABS: WHITE BLOOD COUNT 49.4 x10^3/uL (4.0-11.0)
[2020-09-15 08:53] LABS: GFR 38.3; POTASSIUM 4.1 mmol/L (3.5-5.1)
[2020-09-15] MEDS: ASCORBIC ACID 500 MG TABLET PO SCH (09:00)
[2020-09-15] MEDS: LACTOBACILLUS RHAMNOSUS GG 1 CAPSULE. PO SCH ×2 (09:00→20:18)
[2020-09-15] MEDS: ATORVASTATIN CALCIUM 40 MG TABLET. PO SCH (09:00)
[2020-09-15] MEDS: DOCUSATE SODIUM 100 MG CAPSULE. PO SCH ×3 (09:00→20:18)
[2020-09-15] MEDS: BUMETANIDE 1 MG/4 ML VIAL. IV SCH ×2 (09:13→14:12)
[2020-09-15 09:24] LABS: PROTHROMBIN TIME PATIENT 19.6 SEC (11.7-14.0)
--- NOTE | 2020-09-15 09:31 | PDOC ---
PROGRESS NOTES Date of Service DATE: 09/15/20 TIME: 09:30 Assessment Problems Medical Problems: (1) CHF (congestive heart failure) Status: Acute Chronic right subdural hematoma Dementia, metabolic encephalopathy Multiple medical problems: pneumonia, heart failure, leukocytosis, questionable etiology, coronary artery disease, atrial fibrillation, anemia and thrombocytosis, on top of his diabetes and COPD Note normal B12 and TSH Plan Medical treatment of subdural, holding anticoagulation and antiplatelet agents. Treat medical issues Discussed with patient's son and , particularly risk, benefits, alternatives regarding anticoagulation. He has a risk of stroke or other embolic event versus risk of another subdural hematoma from any of his several falls. Follow up with me in 2 months, will repeat CT then Subjective No complaints Objective Vital Signs Date Time Temp Pulse Resp B/P (MAP) Pulse Ox O2 Delivery O2 Flow Rate FiO2 09/15/20 07:00 97.3 87 16 89/43 (58) 98 Room Air 97.3 Intake and Output 09/15/20 07:00 Intake Total 1150 ml Balance 1150 ml Intake Oral 1050 ml IV Total 100 ml # Voids 6 # Bowel Movements 2 PHYSICAL EXAM Alert, does not know date or location, does tell me his name PERRL. EOMI. CN: no focal findings. Muscle tone: normal. Muscle strength: 4/5 DTR: 1+ Plantar reflex: Flexor Gait: not examined in bed. Sensory exam: no abnormal findings. No cerebellar signs elicited. Review of Relevant I have reviewed the following items tiffany (where applicable) has been applied. Labs Laboratory Tests Test 09/13/20 11:45 09/13/20 17:02 09/13/20 21:09 09/14/20 06:15 Glucose (Fingerstick) 131 mg/dL (70-99) 97 mg/dL (70-99) 112 mg/dL (70-99) Sodium Level 145 mmol/L (136-145) Potassium Level 3.3 mmol/L (3.5-5.1) Chloride Level 108 mmol/L (98-107) Carbon Dioxide Level 20 mmol/L (21-32) Anion Gap 17 (6-14) Blood Urea Nitrogen 62 mg/dL (8-26) Creatinine 1.8 mg/dL (0.7-1.3) Estimated GFR (Cockcroft-Gault) 43.3 Glucose Level 88 mg/dL (70-99) Calcium Level 8.5 mg/dL (8.5-10.1) Test 09/14/20 08:20 09/14/20 12:28 09/14/20 17:38 09/14/20 20:45 Glucose (Fingerstick) 84 mg/dL (70-99) 126 mg/dL (70-99) 102 mg/dL (70-99) 124 mg/dL (70-99) Test 09/15/20 07:10 09/15/20 08:04 White Blood Count 49.4 x10^3/uL (4.0-11.0) Red Blood Count 3.54 x10^6/uL (4.30-5.70) Hemoglobin 9.8 g/dL (13.0-17.5) Hematocrit 33.0 % (39.0-53.0) Mean Corpuscular Volume 93 fL (79-100) Mean Corpuscular Hemoglobin 28 pg (25-35) Mean Corpuscular Hemoglobin Concent 30 g/dL (31-37) Red Cell Distribution Width 24.7 % (11.5-14.5) Platelet Count 193 x10^3/uL (140-400) Neutrophils (%) (Auto) 96 % (31-73) Lymphocytes (%) (Auto) 3 % (24-48) Monocytes (%) (Auto) 2 % (0-9) Eosinophils (%) (Auto) 0 % (0-3) Basophils (%) (Auto) 0 % (0-3) Neutrophils # (Auto) 47.3 x10^3/uL (1.8-7.7) Lymphocytes # (Auto) 1.3 x10^3/uL (1.0-4.8) Monocytes # (Auto) 0.8 x10^3/uL (0.0-1.1) Eosinophils # (Auto) 0.1 x10^3/uL (0.0-0.7) Basophils # (Auto) 0.0 x10^3/uL (0.0-0.2) Sodium Level 141 mmol/L (136-145) Potassium Level 4.1 mmol/L (3.5-5.1) Chloride Level 105 mmol/L (98-107) Carbon Dioxide Level 18 mmol/L (21-32) Anion Gap 18 (6-14) Blood Urea Nitrogen 74 mg/dL (8-26) Creatinine 2.0 mg/dL (0.7-1.3) Estimated GFR (Cockcroft-Gault) 38.3 Glucose Level 92 mg/dL (70-99) Calcium Level 8.0 mg/dL (8.5-10.1) Glucose (Fingerstick) 89 mg/dL (70-99) Laboratory Tests Test 09/14/20 12:28 09/14/20 17:38 09/14/20 20:45 09/15/20 07:10 Glucose (Fingerstick) 126 mg/dL (70-99) 102 mg/dL (70-99) 124 mg/dL (70-99) White Blood Count 49.4 x10^3/uL (4.0-11.0) Red Blood Count 3.54 x10^6/uL (4.30-5.70) Hemoglobin 9.8 g/dL (13.0-17.5) Hematocrit 33.0 % (39.0-53.0) Mean Corpuscular Volume 93 fL (79-100) Mean Corpuscular Hemoglobin 28 pg (25-35) Mean Corpuscular Hemoglobin Concent 30 g/dL (31-37) Red Cell Distribution Width 24.7 % (11.5-14.5) Platelet Count 193 x10^3/uL (140-400) Neutrophils (%) (Auto) 96 % (31-73) Lymphocytes (%) (Auto) 3 % (24-48) Monocytes (%) (Auto) 2 % (0-9) Eosinophils (%) (Auto) 0 % (0-3) Basophils (%) (Auto) 0 % (0-3) Neutrophils # (Auto) 47.3 x10^3/uL (1.8-7.7) Lymphocytes # (Auto) 1.3 x10^3/uL (1.0-4.8) Monocytes # (Auto) 0.8 x10^3/uL (0.0-1.1) Eosinophils # (Auto) 0.1 x10^3/uL (0.0-0.7) Basophils # (Auto) 0.0 x10^3/uL (0.0-0.2) Sodium Level 141 mmol/L (136-145) Potassium Level 4.1 mmol/L (3.5-5.1) Chloride Level 105 mmol/L (98-107) Carbon Dioxide Level 18 mmol/L (21-32) Anion Gap 18 (6-14) Blood Urea Nitrogen 74 mg/dL (8-26) Creatinine 2.0 mg/dL (0.7-1.3) Estimated GFR (Cockcroft-Gault) 38.3 Glucose Level 92 mg/dL (70-99) Calcium Level 8.0 mg/dL (8.5-10.1) Test 09/15/20 08:04 Glucose (Fingerstick) 89 mg/dL (70-99) Microbiology 09/11/20 Blood Culture - Preliminary, Resulted NO GROWTH AFTER 3 DAYS Medications Current Medications Furosemide (Lasix) 40 mg 1X ONCE IVP Last administered on 09/03/20at 21:07; Start 09/03/20 at 21:00; Stop 09/03/20 at 21:01; Status DC Piperacillin Sod/ Tazobactam Sod 3.375 gm/Sodium Chloride 50 ml @ 100 mls/hr 1X ONCE IV Last administered on 09/03/20at 21:08; Start 09/03/20 at 21:00; Stop 09/03/20 at 21:29; Status DC Ondansetron HCl (Zofran) 4 mg PRN Q8HRS PRN IV NAUSEA/VOMITING; Start 09/03/20 at 21:00; Stop 09/04/20 at 20:59; Status DC Morphine Sulfate (Morphine Sulfate) 2 mg PRN Q2HR PRN IV PAIN; Start 09/03/20 at 21:00; Stop 09/04/20 at 20:59; Status DC Acetaminophen (Tylenol) 650 mg PRN Q4HRS PRN PO FEVER > 100.3'F; Start 09/03/20 at 21:00; Stop 09/04/20 at 20:59; Status DC Ascorbic Acid (Vitamin C) 250 mg DAILY PO Last administered on 09/14/20at 08:48; Start 09/04/20 at 09:00 Aspirin (Aspirin Chewable) 81 mg BID PO Last administered on 09/12/20at 21:09; Start 09/04/20 at 09:00; Stop 09/13/20 at 09:28; Status DC Atorvastatin Calcium (Lipitor) 40 mg DAILY PO Last administered on 09/14/20 08:48; Start 09/04/20 at 09:00 Bumetanide (Bumex) 1 mg BID92 PO ; Start 09/04/20 at 09:00; Stop 09/04/20 at 07:53; Status DC Digoxin (Lanoxin) 125 mcg DAILY PO ; Start 09/04/20 at 09:00; Stop 09/04/20 at 07:47; Status DC Docusate Sodium (Colace) 100 mg TID PO Last administered on 09/13/20at 10:58; Start 09/04/20 at 09:00 Acetaminophen/ Hydrocodone Bitart (Lortab 5/325) 1 tab PRN Q6HRS PRN PO PAIN Last administered on 09/14/20 18:23; Start 09/03/20 at 22:15 Metoprolol Tartrate (Lopressor) 100 mg DAILY PO ; Start 09/04/20 at 09:00; Stop 09/04/20 at 07:29; Status DC Warfarin Sodium (Coumadin Per Pharmacy) 1 each PRN DAILY PRN MC SEE COMMENTS Last administered on 09/13/20at 09:06; Start 09/03/20 at 22:15; Stop 09/13/20 at 09:28; Status DC Piperacillin Sod/ Tazobactam Sod (Zosyn Per Pharmacy) 1 each PRN DAILY PRN MC SEE COMMENTS; Start 09/03/20 at 22:15; Status Cancel Albuterol/ Ipratropium (Duoneb) 3 ml RTQID NEB Last administered on 09/10/20at 20:11; Start 09/04/20 at 08:00; Stop 09/12/20 at 08:01; Status DC Prednisone (Prednisone) 40 mg 1X ONCE PO Last administered on 09/03/20at 22:41; Start 09/03/20 at 22:15; Stop 09/03/20 at 22:21; Status DC Insulin Human Lispro (HumaLOG) 0-7 UNITS TIDWMEALS SQ Last administered on 09/04/20at 12:32; Start 09/04/20 at 08:00 Dextrose (Dextrose 50%-Water Syringe) 12.5 gm PRN Q15MIN PRN IV SEE COMMENTS Last administered on 09/12/20at 20:55; Start 09/03/20 at 22:15 Piperacillin Sod/ Tazobactam Sod 3.375 gm/Sodium Chloride 50 ml @ 100 mls/hr Q6HRS IV Last administered on 09/10/20at 05:09; Start 09/04/20 at 06:00; Stop 09/10/20 at 11:42; Status DC Warfarin Sodium (Coumadin - No Dose Today) 1 each 1X WARF ONCE MC Last administered on 09/04/20at 16:00; Start 09/04/20 at 16:00; Stop 09/04/20 at 16:01; Status DC Bumetanide (Bumex) 2.5 mg BID92 IV Last administered on 09/04/20at 15:23; Start 09/04/20 at 09:00; Stop 09/05/20 at 07:46; Status DC Lactobacillus Rhamnosus (Culturelle) 1 cap BID PO Last administered on 09/14/20at 21:06; Start 09/04/20 at 21:00 Tamsulosin HCl (Flomax) 0.4 mg QHS PO Last administered on 09/14/20at 21:06; Start 09/05/20 at 21:00 Bumetanide (Bumex) 1 mg BID92 IV Last administered on 09/15/20at 09:13; Start 09/05/20 at 09:00 Potassium Bicarbonate (Potassium Effervescent Tablet) 40 meq 1X ONCE PO Last administered on 09/05/20at 09:06; Start 09/05/20 at 08:00; Stop 09/05/20 at 08:01; Status DC Warfarin Sodium (Coumadin - No Dose Today) 1 each 1X WARF ONCE MC Last administered on 09/05/20at 15:58; Start 09/05/20 at 16:00; Stop 09/05/20 at 16:01; Status DC Warfarin Sodium (Coumadin - No Dose Today) 1 each 1X WARF ONCE MC Last administered on 09/06/20at 16:00; Start 09/06/20 at 16:00; Stop 09/06/20 at 16:01; Status DC Warfarin Sodium (Coumadin - No Dose Today) 1 each 1X WARF ONCE MC ; Start 09/07/20 at 16:00; Stop 09/07/20 at 16:01; Status DC Bisacodyl (Dulcolax Supp) 10 mg 1X ONCE DC ; Start 09/07/20 at 13:00; Stop 09/07/20 at 18:32; Status DC Bisacodyl (Dulcolax Supp) 10 mg PRN DAILY PRN DC CONSTIPATION Last administered on 09/08/20at 08:29; Start 09/07/20 at 18:45 Warfarin Sodium (Coumadin - No Dose Today) 1 each 1X WARF ONCE MC ; Start at 16:00; Stop 09/08/20 at 16:01; Status Cancel Warfarin Sodium (Coumadin) 4 mg 1X WARF ONCE PO Last administered on 09/08/20at 17:29; Start 09/08/20 at 16:00; Stop 09/08/20 at 16:01; Status DC Warfarin Sodium (Coumadin) 4 mg 1X WARF ONCE PO Last administered on 09/09/20at 16:53; Start 09/09/20 at 16:00; Stop 09/09/20 at 16:01; Status DC Potassium Chloride (Klor-Con) 20 meq 1X ONCE PO Last administered on 09/09/20at 09:32; Start 09/09/20 at 10:00; Stop 09/09/20 at 10:01; Status DC Linezolid (Zyvox) 600 mg BID PO Last administered on 09/14/20at 21:06; Start 09/09/20 at 12:00 Warfarin Sodium (Coumadin) 4 mg 1X WARF ONCE PO Last administered on 09/10/20at 16:47; Start 09/10/20 at 16:00; Stop 09/10/20 at 16:01; Status DC Meropenem 500 mg/ Sodium Chloride 50 ml @ 100 mls/hr Q8HRS IV Last administered on 09/15/20at 06:00; Start 09/10/20 at 14:00 Furosemide (Lasix) 20 mg DAILY IVP ; Start 09/11/20 at 09:00; Status UNV Phenyleph/Shark Oil/Min Oil/Petrol (Preparation H) 1 mihaela PRN QID PRN RC RECTAL PAIN; Start 09/10/20 at 19:15 Micafungin Sodium 100 mg/Dextrose 100 ml @ 100 mls/hr Q24H IV Last administered on 09/14/20at 10:18; Start 09/11/20 at 10:00 Warfarin Sodium (Coumadin) 4 mg 1X WARF ONCE PO ; Start 09/11/20 at 16:00; Stop 09/11/20 at 16:01; Status DC Dextrose 1,000 ml @ 25 mls/hr Q24H IV Last administered on 09/11/20at 20:29; Start 09/11/20 at 19:15 Warfarin Sodium (Coumadin) 3 mg 1X WARF ONCE PO ; Start 09/12/20 at 16:00; Stop 09/13/20 at 09:28; Status DC Albuterol Sulfate (Ventolin Neb Soln) 2.5 mg PRN Q6HRS PRN NEB SHORTNESS OF BREATH; Start 09/12/20 at 08:15 Warfarin Sodium (Coumadin) 4 mg 1X WARF ONCE PO ; Start 09/13/20 at 16:00; Stop 09/13/20 at 09:28; Status DC Phytonadione 10 mg/Dextrose 51 ml @ 102 mls/hr 1X ONCE IV Last administered on 09/14/20at 13:56; Start 09/14/20 at 14:00; Stop 09/14/20 at 14:29; Status DC Active Scripts Active [place] 5-325 Tablet (Acetaminophen/Hydrocodone Bitart) 1 Each Tablet 7.5 Mg PO PRN Q6HRS PRN 6 Days LAST DOSE GIVEN: Reported Warfarin Sodium 2 Mg Tablet 4 Mg PO Warfarin Sodium 2 Mg Tablet 6 Mg PO QMTH Bumetanide 1 Mg Tablet 1 Mg PO BID Colace (Docusate Sodium) 100 Mg Capsule 1 Cap PO TID Metamucil Powder (Psyllium Seed (with Sugar)) 575 Gm Powder 575 Gm PO DAILY Atorvastatin Calcium 40 Mg Tablet 1 Tab PO DAILY Metoprolol Tartrate 100 Mg Tablet 100 Mg PO DAILY Tamsulosin Hcl 0.4 Mg Cap.er.24h 0.4 Mg PO HS DAILY Vitamin C (Ascorbic Acid) 500 Mg Tablet 250 Mg PO DAILY Aspirin 81 Mg Tab.chew 81 Mg PO BID Lanoxin (Digoxin) 125 Mcg Tablet 125 Mcg PO DAILY Vitals/I & O Vital Sign - Last 24 Hours 09/14/20 09/14/20 09/14/20 09/14/20 11:00 15:00 18:23 18:50 Temp 98.0 98.2 98.0 98.2 Pulse 98 105 Resp 20 24 20 20 B/P (MAP) 103/50 (67) 107/47 (67) Pulse Ox 95 96 96 96 O2 Delivery Room Air Room Air Room Air Room Air 09/14/20 09/14/20 09/14/20 09/15/20 19:00 20:15 22:52 03:00 Temp 97.5 97.6 97.9 97.5 97.6 97.9 Pulse 98 97 88 Resp 18 16 16 B/P (MAP) 95/32 (53) 107/46 (66) 99/51 (67) Pulse Ox 98 98 97 O2 Delivery Room Air Room Air Room Air Room Air 09/15/20 07:00 Temp 97.3 97.3 Pulse 87 Resp 16 B/P (MAP) 89/43 (58) Pulse Ox 98 O2 Delivery Room Air Intake and Output 09/14/20 09/14/20 09/15/20 15:00 23:00 07:00 Intake Total 700 ml 350 ml 100 ml Balance 700 ml 350 ml 100 ml Justicifation of Admission Dx: Justifications for Admission: Justification of Admission Dx: Yes LEENA BRICE MD Sep 15, 2020 09:31
--- NOTE | 2020-09-15 09:50 | PDOC ---
PULMONARY PROGRESS NOTES DATE: 09/15/20 TIME: 09:50 Subjective Remains on room air No SOA or Cough low grade fever overnight Vitals Vital Signs Date Time Temp Pulse Resp B/P (MAP) Pulse Ox O2 Delivery O2 Flow Rate FiO2 09/15/20 07:00 97.3 87 16 89/43 (58) 98 Room Air 97.3 ROS: No Nausea, No Chest Pain, No Abdominal Pain, No Increase Cough General: Alert, No acute distress Lungs: Crackles (bases ) Cardiovascular: S1, S2 Abdomen: Soft, Non-tender Neuro Exam: Alert, Oriented Extremities: Other (edema) Skin: Warm, Dry Labs Laboratory Tests Test 09/13/20 11:45 09/13/20 17:02 09/13/20 21:09 09/14/20 06:15 Glucose (Fingerstick) 131 mg/dL (70-99) 97 mg/dL (70-99) 112 mg/dL (70-99) Sodium Level 145 mmol/L (136-145) Potassium Level 3.3 mmol/L (3.5-5.1) Chloride Level 108 mmol/L (98-107) Carbon Dioxide Level 20 mmol/L (21-32) Anion Gap 17 (6-14) Blood Urea Nitrogen 62 mg/dL (8-26) Creatinine 1.8 mg/dL (0.7-1.3) Estimated GFR (Cockcroft-Gault) 43.3 Glucose Level 88 mg/dL (70-99) Calcium Level 8.5 mg/dL (8.5-10.1) Test 09/14/20 08:20 09/14/20 12:28 09/14/20 17:38 09/14/20 20:45 Glucose (Fingerstick) 84 mg/dL (70-99) 126 mg/dL (70-99) 102 mg/dL (70-99) 124 mg/dL (70-99) Test 09/15/20 07:10 09/15/20 08:04 White Blood Count 49.4 x10^3/uL (4.0-11.0) Red Blood Count 3.54 x10^6/uL (4.30-5.70) Hemoglobin 9.8 g/dL (13.0-17.5) Hematocrit 33.0 % (39.0-53.0) Mean Corpuscular Volume 93 fL (79-100) Mean Corpuscular Hemoglobin 28 pg (25-35) Mean Corpuscular Hemoglobin Concent 30 g/dL (31-37) Red Cell Distribution Width 24.7 % (11.5-14.5) Platelet Count 193 x10^3/uL (140-400) Neutrophils (%) (Auto) 96 % (31-73) Lymphocytes (%) (Auto) 3 % (24-48) Monocytes (%) (Auto) 2 % (0-9) Eosinophils (%) (Auto) 0 % (0-3) Basophils (%) (Auto) 0 % (0-3) Neutrophils # (Auto) 47.3 x10^3/uL (1.8-7.7) Lymphocytes # (Auto) 1.3 x10^3/uL (1.0-4.8) Monocytes # (Auto) 0.8 x10^3/uL (0.0-1.1) Eosinophils # (Auto) 0.1 x10^3/uL (0.0-0.7) Basophils # (Auto) 0.0 x10^3/uL (0.0-0.2) Prothrombin Time 19.6 SEC (11.7-14.0) Prothromb Time International Ratio 1.7 (0.8-1.1) Sodium Level 141 mmol/L (136-145) Potassium Level 4.1 mmol/L (3.5-5.1) Chloride Level 105 mmol/L (98-107) Carbon Dioxide Level 18 mmol/L (21-32) Anion Gap 18 (6-14) Blood Urea Nitrogen 74 mg/dL (8-26) Creatinine 2.0 mg/dL (0.7-1.3) Estimated GFR (Cockcroft-Gault) 38.3 Glucose Level 92 mg/dL (70-99) Calcium Level 8.0 mg/dL (8.5-10.1) Glucose (Fingerstick) 89 mg/dL (70-99) Laboratory Tests Test 09/14/20 12:28 09/14/20 17:38 09/14/20 20:45 09/15/20 07:10 Glucose (Fingerstick) 126 mg/dL (70-99) 102 mg/dL (70-99) 124 mg/dL (70-99) White Blood Count 49.4 x10^3/uL (4.0-11.0) Red Blood Count 3.54 x10^6/uL (4.30-5.70) Hemoglobin 9.8 g/dL (13.0-17.5) Hematocrit 33.0 % (39.0-53.0) Mean Corpuscular Volume 93 fL (79-100) Mean Corpuscular Hemoglobin 28 pg (25-35) Mean Corpuscular Hemoglobin Concent 30 g/dL (31-37) Red Cell Distribution Width 24.7 % (11.5-14.5) Platelet Count 193 x10^3/uL (140-400) Neutrophils (%) (Auto) 96 % (31-73) Lymphocytes (%) (Auto) 3 % (24-48) Monocytes (%) (Auto) 2 % (0-9) Eosinophils (%) (Auto) 0 % (0-3) Basophils (%) (Auto) 0 % (0-3) Neutrophils # (Auto) 47.3 x10^3/uL (1.8-7.7) Lymphocytes # (Auto) 1.3 x10^3/uL (1.0-4.8) Monocytes # (Auto) 0.8 x10^3/uL (0.0-1.1) Eosinophils # (Auto) 0.1 x10^3/uL (0.0-0.7) Basophils # (Auto) 0.0 x10^3/uL (0.0-0.2) Prothrombin Time 19.6 SEC (11.7-14.0) Prothromb Time International Ratio 1.7 (0.8-1.1) Sodium Level 141 mmol/L (136-145) Potassium Level 4.1 mmol/L (3.5-5.1) Chloride Level 105 mmol/L (98-107) Carbon Dioxide Level 18 mmol/L (21-32) Anion Gap 18 (6-14) Blood Urea Nitrogen 74 mg/dL (8-26) Creatinine 2.0 mg/dL (0.7-1.3) Estimated GFR (Cockcroft-Gault) 38.3 Glucose Level 92 mg/dL (70-99) Calcium Level 8.0 mg/dL (8.5-10.1) Test 09/15/20 08:04 Glucose (Fingerstick) 89 mg/dL (70-99) Medications Active Scripts Medications Dose Route/Sig Max Daily Dose Days Date Category Dose Instructions Bumetanide 1 Mg Tablet 1 Mg PO BID 07/28/20 Reported [place] 5-325 Tablet (Acetaminophen/Hydrocodone Bitart) 1 Each Tablet 7.5 Mg PO PRN Q6HRS PRN 6 09/20/18 Rx LAST DOSE GIVEN: Colace (Docusate Sodium) 100 Mg Capsule 1 Cap PO TID 09/09/18 Reported Metamucil Powder (Psyllium Seed (with Sugar)) 575 Gm Powder 575 Gm PO DAILY 09/09/18 Reported Atorvastatin Calcium 40 Mg Tablet 1 Tab PO DAILY 08/12/18 Reported Metoprolol Tartrate 100 Mg Tablet 100 Mg PO DAILY 11/08/17 Reported Tamsulosin Hcl 0.4 Mg Cap.er.24h 0.4 Mg PO HS DAILY 11/08/17 Reported Vitamin C (Ascorbic Acid) 500 Mg Tablet 250 Mg PO DAILY 05/08/14 Reported Warfarin Sodium 5 Mg Tablet 1.5 Tab PO QWE 04/18/14 Reported Warfarin Sodium 5 Mg Tablet 1 Tab PO DAILY EXCEPT WED. 04/18/14 Reported Aspirin 81 Mg Tab.chew 81 Mg PO BID 08/22/13 Reported Lanoxin (Digoxin) 125 Mcg Tablet 125 Mcg PO DAILY 08/22/13 Reported Comments 09/11 cxr reviewed 1. Left lower lobe infiltrate superimposed on chronic interstitial changes. 2. Stable small pleural effusions. 3. Cardiomegaly and left greater than right hilar enlargement likely due to pulmonary artery hypertension. ct of abd pelvis chest 1. Enlarged ascending thoracic aorta measuring 4.5 cm. 2. Moderate cardiomegaly. 3. Increased, small pleural effusions and bibasilar atelectasis. Mild emphysema. Chronic appearing interstitial changes or scarring in the lung bases, unchanged. 4. Mild hepatosplenomegaly. 5. Trace ascites. Impression . IMPRESSION: 1. Dyspnea secondary to acute systolic and diastolic congestive heart failure--improving on room air 2. Abnormal chest x-ray. 3. 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 4. Cardiomyopathy. 5. 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 6. Obstructive sleep apnea-hypopnea syndrome, CPAP noncompliant. 7. Paroxysmal atrial fibrillation, on Coumadin. 8. Acute kidney injury/chronic kidney disease. 9. leukocytosis --worsening --ID following 10. Chronic SDH-- neuro SX. following Plan . RECOMMENDATIONS: Pt. is stable from respiratory stand point Titrate FiO2 to keep O2 saturation 90%, on room air Follow ID recs-- for ABX CT of chest reviewed, Increased, but small pleural effusions (not amenable to thoracentesis) and bibasilar atelectasis. Mild emphysema. Chronic appearing interstitial changes or scarring in the lung bases, unchanged. Follow Oncology recs-- myelofibrosis is the leading differential diagnosis-- pt. doesn't want further work up-- recommending hospice Follow cardiology recs----Echocardiogram 2019 ejection fraction of 40% Follow nephrology recs - monitor renal function Coumadin on HOLD Neuro surgery following -- SDH PT/OT/ST-- failed swallow study now npo--nutritional support DVT/GI PPX D/W RN Pt. is DNR we will see PRN please call with questions or concerns BREN CARDOZO MD Sep 15, 2020 09:50
--- NOTE | 2020-09-15 09:57 | PDOC ---
[facility] [facility] PROGRESS NOTE Date of Service DOS: DATE: 09/15/20 TIME: 09:41 Chief Complaint Chief Complaint impression Acute on chronic combined systolic and diastolic heart failure. We will diurese with intravenous Bumex. 2D echo in September 2019 showed LVEF 40%. Coronary artery disease: Patient has known chronic total occlusion of LAD with collaterals, presently stable and chest pain-free. Lexiscan nuclear stress test in March 2020 showed large inferior infarct without any significant ischemia. Continue current secondary prevention measures. Sick sinus syndrome s/p permanent pacemaker implantation with more recent generator change. Recent device check showed normal function. He denied any syncope or near syncope. Permanent atrial fibrillation: Telemetry showed demand pacing. Patient on warfarin for stroke prophylaxis. Check PT/INR. Hypertension - Controlled. Will back off on his BB. He is actually on 100mg metoprolol tartrate Hyperlipidemia - Continue statin Diabetes mellitus type 2 - diet controlled, A1c previously 5.8 Severe Protein calorie malnutrition - severe given his edema and albumin. 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 Normal LV systolic function. EF 60% plan FEN - Cardiac ADA diet PPX - warfarin CODE - FULL Dispo - inpatient CVC for CHF exacerbation Hyperlipidemia - Continue statin Diabetes mellitus type 2 - diet controlled, A1c previously 5.8 Severe Protein calorie malnutrition - severe given his edema and albumin. Diet ician to see D/W RN Defer to pulmonology regarding management of acute hypoxic respiratory failure and antibiotics ONCOLOGY plan on seeing patient in follow-up as outpatient to reassess CBC and discussed results of BCR ABL FISH and JAK2 mutation testing ID CONSULT 37 min pt exam, chart review, > 50% of time spent with exam, chart review, pt care coordination Worsening interstitial changes throughout both lungs, with worsening perihilar consolidation. Findings may reflect progressive interstitial pulmonary edema or infection. CXR 6- Continue Merrem ( 09/10) and Zyvox,was on zosyn CONTINUE micafungin History of Present Illness History of Present Illness Mr Rivero is an 89yo M w/ PMHx DM2, HLD, HTN, afib, SSS s/p PPM, CAD, chronic systolic CHF who presented to ED c/o for weakness and dyspnea. Also complains of dyspnea worsening over weeks, with a few days of noted LE edema is worse with cough in the morning that is productive of white sputum. he has cough at times, He denied any chest pain, palpitations or syncope. Given 1 dose iv lasix in ED 40mg, < 500 uop after, still feeling short of breath. He follows with Dr. Santoyo and has been recently changed to Bumex last month. Chest radiograph with interstitial edema. Labs with WBC 27.3, Hb 10.3, platelets 454, NA 145, K4.7, BUN 58, CR 2.1, INR 3.2 TSH 5.5, digoxin level 2.2, albumin 2.7, bilirubin 2.2, AST 56 ALT 12 alkaline phosphatase 138 NT proBNP 31,348 Admitted for further treatment. 09/04: Afebrile. WBC still high. Reasonably good urine output. A little confused Febrile. 1.3 L urine output. Still with very swollen lower extremities. No chest pain little bit short of breath. Not on O2 today. 09-06 Still with very swollen lower extremities. No chest pain little bit short of breath. Acute on chronic combined systolic and diastolic heart failure. We will diurese with intravenous Bumex. 2D echo in September 2019 showed LVEF 40%. Coronary artery disease: Patient has known chronic total occlusion of LAD with collaterals, presently stable and chest pain-free. Lexiscan nuclear stress test in March 2020 showed large inferior infarct without any significant ischemia. Continue current secondary prevention measures. Sick sinus syndrome s/p permanent pacemaker implantation with more recent generator change. Recent device check showed normal function. He denied any syncope or near syncope. Permanent atrial fibrillation: Telemetry showed demand pacing. Patient on warfarin for stroke prophylaxis. Check PT/INR. Hypertension - Controlled. Will back off on his BB. He is actually on 100mg metoprolol tartrate Hyperlipidemia - Continue statin Diabetes mellitus type 2 - diet controlled, A1c previously 5.8 Severe Protein calorie malnutrition - severe given his edema and albumin. Col[employer] Hides [employer] Skins to see D/W RN 09/07 CR 2.2 LESS swollen lower extremities. No chest pain little bit short of breath. Acute on chronic combined systolic and diastolic heart failure. We will diurese with intravenous Bumex. 2D echo in September 2019 showed LVEF 40%. Coronary artery disease: Patient has known chronic total occlusion of LAD with collaterals, presently stable and chest pain-free. Lexiscan nuclear stress test in March 2020 showed large inferior infarct without any significant ischemia. Continue current secondary prevention measures. Sick sinus syndrome s/p permanent pacemaker implantation with more recent generator change. Recent device check showed normal function. He denied any syncope or near syncope. Permanent atrial fibrillation: Telemetry showed demand pacing. Patient on warfarin for stroke prophylaxis. Check PT/INR. Hypertension - Controlled. Will back off on his BB. He is actually on 100mg metoprolol tartrate Hyperlipidemia - Continue statin Diabetes mellitus type 2 - diet controlled, A1c previously 5.8 Severe Protein calorie malnutrition - severe given his edema and albumin. [employer] Hides [employer] Skins to see D/W RN 09/08 CR 2.0 wbc 30.3 CAD; catheterization 08/2018 with CHARGE WEIGHER of LAD with collaterals, which is unchanged from previous cath in 2013. clinically stable, CP free. 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 Permanent AFIB; rate controlled with BB. on warfarin for stroke prevention. 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 No chest pain little bit short of breath. Acute on chronic combined systolic and diastolic heart failure. We will diurese with intravenous Bumex. 2D echo in September 2019 showed LVEF 40%. Coronary artery disease: Patient has known chronic total occlusion of LAD with collaterals, presently stable and chest pain-free. Lexiscan nuclear stress test in March 2020 showed large inferior infarct without any significant ischemia. Continue current secondary prevention measures. Sick sinus syndrome s/p permanent pacemaker implantation with more recent generator change. Recent device check showed normal function. He denied any syncope or near syncope. Permanent atrial fibrillation: Telemetry showed demand pacing. Patient on warfarin for stroke prophylaxis. Check PT/INR. Hypertension - Controlled. Will back off on his BB. He is actually on 100mg metoprolol tartrate Hyperlipidemia - Continue statin Diabetes mellitus type 2 - diet controlled, A1c previously 5.8 Severe Protein calorie malnutrition - severe given his edema and albumin. [employer] Hides [employer] Skins to see D/W RN 37 min pt exam, chart review, > 50% of time spent with exam, chart review, pt care coordination 09/09 CR 2.0 wbc 30.3 CAD; catheterization 08/2018 with CHARGE WEIGHER of LAD with collaterals, which is unchanged from previous cath in 2013. clinically stable, CP free. 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 Permanent AFIB; rate controlled with BB. on warfarin for stroke prevention. 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 No chest pain little bit short of breath. Acute on chronic combined systolic and diastolic heart failure. We will diurese with intravenous Bumex. 2D echo in September 2019 showed LVEF 40%. Coronary artery disease: Patient has known chronic total occlusion of LAD with collaterals, presently stable and chest pain-free. Lexiscan nuclear stress test in March 2020 showed large inferior infarct without any significant ischemia. Continue current secondary prevention measures. Sick sinus syndrome s/p permanent pacemaker implantation with more recent generator change. Recent device check showed normal function. He denied any syncope or near syncope. Permanent atrial fibrillation: Telemetry showed demand pacing. Patient on warfarin for stroke prophylaxis. Check PT/INR. Hypertension - Controlled. Will back off on his BB. 100mg metoprolol tartrate Hyperlipidemia - Continue statin Diabetes mellitus type 2 - diet controlled, A1c previously 5.8 Severe Protein calorie malnutrition - severe given his edema and albumin. [employer] Hides [employer] Skins to see D/W RN Defer to pulmonology regarding management of acute hypoxic respiratory failure and antibiotics ONCOLOGY plan on seeing patient in follow-up as outpatient to reassess CBC and discussed results of BCR ABL FISH and JAK2 mutation testing ID CONSULT 36 min pt exam, chart review, > 50% of time spent with exam, chart review, pt care coordination Worsening interstitial changes throughout both lungs, with worsening perihilar consolidation. Findings may reflect progressive interstitial pulmonary edema or infection. CXR 09-15 long discussion with family, , 2 sons they are not sure he desires a BM BX , will cont to monitor CR 2.0 wbc 31 CAD; catheterization 08/2018 with CHARGE WEIGHER of LAD with collaterals, which is unchanged from previous cath in 2013. clinically stable, CP free. 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 Permanent AFIB; rate controlled with BB. on warfarin for stroke prevention. 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 No chest pain little bit short of breath. Acute on chronic combined systolic and diastolic heart failure. We will diurese with intravenous Bumex. 2D echo in September 2019 showed LVEF 40%. Coronary artery disease: Patient has known chronic total occlusion of LAD with collaterals, presently stable and chest pain-free. Lexiscan nuclear stress test in March 2020 showed large inferior infarct without any significant ischemia. Continue current secondary prevention measures. Sick sinus syndrome s/p permanent pacemaker implantation with more recent gene rator change. Recent device check showed normal function. He denied any syncope or near syncope. Permanent atrial fibrillation: Telemetry showed demand pacing. Patient on warfarin for stroke prophylaxis. Check PT/INR. Hypertension - Controlled. Will back off on his BB. 100mg metoprolol tartrate Hyperlipidemia - Continue statin Diabetes mellitus type 2 - diet controlled, A1c previously 5.8 Severe Protein calorie malnutrition - severe given his edema and albumin. [employer] Hides [employer] Skins to see D/W RN Defer to pulmonology regarding management of acute hypoxic respiratory failure and antibiotics ONCOLOGY plan on seeing patient in follow-up as outpatient to reassess CBC and discussed results of BCR ABL FISH and JAK2 mutation testing ID CONSULT 38 min pt exam, chart review, > 50% of time spent with exam, chart review, pt care coordination Worsening interstitial changes throughout both lungs, with worsening perihilar consolidation. Findings may reflect progressive interstitial pulmonary edema or infection. CXR -09/11 long discussion with family, , 2 sons they are not sure he desires a BM BX , will cont to monitor CR 2.0 wbc 31 CAD; catheterization 08/2018 with CHARGE WEIGHER of LAD with collaterals, which is unchanged from previous cath in 2013. clinically stable, CP free. 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 Permanent AFIB; rate controlled with BB. on warfarin for stroke prevention. 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 No chest pain little bit short of breath. Acute on chronic combined systolic and diastolic heart failure. We will diurese with intravenous Bumex. 2D echo in September 2019 showed LVEF 40%. Coronary artery disease: Patient has known chronic total occlusion of LAD with collaterals, presently stable and chest pain-free. Lexiscan nuclear stress test in March 2020 showed large inferior infarct without any significant ischemia. Continue current secondary prevention measures. Sick sinus syndrome s/p permanent pacemaker implantation with more recent generator change. Recent device check showed normal function. He denied any syncope or near syncope. Permanent atrial fibrillation: Telemetry showed demand pacing. Patient on warfarin for stroke prophylaxis. Check PT/INR. Hypertension - Controlled. Will back off on his BB. 100mg metoprolol tartrate Hyperlipidemia - Continue statin Diabetes mellitus type 2 - diet controlled, A1c previously 5.8 Severe Protein calorie malnutrition - severe given his edema and albumin. [employer] Hides [employer] Skins to see D/W RN Defer to pulmonology regarding management of acute hypoxic respiratory failure and antibiotics ONCOLOGY plan on seeing patient in follow-up as outpatient to reassess CBC and discussed results of BCR ABL FISH and JAK2 mutation testing ID CONSULT 36 min pt exam, chart review, > 50% of time spent with exam, chart review, pt care coordination Worsening interstitial changes throughout both lungs, with worsening perihilar consolidation. Findings may reflect progressive interstitial pulmonary edema or infection. CXR - Continue Merrem ( 09/10) and Zyvox,was on zosyn add micafungin 09/12 long discussion with family, , 2 sons 09-11 they are not sure he desires a BM BX , will cont to monitor CR 2.0 wbc 31 CAD; catheterization 08/2018 with CHARGE WEIGHER of LAD with collaterals, which is unchanged from previous cath in 2013. clinically stable, CP free. 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 Permanent AFIB; rate controlled with BB. on warfarin for stroke prevention. 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 No chest pain little bit short of breath. Acute on chronic combined systolic and diastolic heart failure. We will diurese with intravenous Bumex. 2D echo in September 2019 showed LVEF 40%. Coronary artery disease: Patient has known chronic total occlusion of LAD with collaterals, presently stable and chest pain-free. Lexiscan nuclear stress test in March 2020 showed large inferior infarct without any significant ischemia. Continue current secondary prevention measures. Sick sinus syndrome s/p permanent pacemaker implantation with more recent gener ator change. Recent device check showed normal function. He denied any syncope or near syncope. Permanent atrial fibrillation: Telemetry showed demand pacing. Patient on warfarin for stroke prophylaxis. Check PT/INR. Hypertension - Controlled. Will back off on his BB. 100mg metoprolol tartrate Hyperlipidemia - Continue statin Diabetes mellitus type 2 - diet controlled, A1c previously 5.8 Severe Protein calorie malnutrition - severe given his edema and albumin. [employer] Hides [employer] Skins to see D/W RN Defer to pulmonology regarding management of acute hypoxic respiratory failure and antibiotics ONCOLOGY plan on seeing patient in follow-up as outpatient to reassess CBC and discussed results of BCR ABL FISH and JAK2 mutation testing ID CONSULT 37 min pt exam, chart review, > 50% of time spent with exam, chart review, pt care coordination Worsening interstitial changes throughout both lungs, with worsening perihilar consolidation. Findings may reflect progressive interstitial pulmonary edema or infection. CXR 09-09 Continue Merrem ( 09/10) and Zyvox,was on zosyn CONTINUE micafungin 09/13 Afebrile overnight, currently breathing on room air. WBC 43.6 today. Chest x- ray showing left lower lobe pneumonia as possible source of leukocytosis. We will continue treatment with Zosyn, Zyvox, and micafungin. Repeat urinalysis and urine culture pending. Bilateral lower extremity ultrasounds negative for DVT. Discussed with (POOL), who is opting to defer outpatient bone marrow biopsy and further work-up for possible leukemia. She is preferring instead to proceed with medical management. Discussed with DPOA and son about CODE STATUS, they are currently undecided and will revisit this question at a later time. Charts, labs, imaging reviewed, and discussed with RN. 09/14 No acute events overnight, afebrile. Patient with no concerns today; no family is at bedside at the time of my evaluation. He was recommended to continue meropenem, Zyvox, and micafungin, per ID. CT head yesterday showed small to moderate subacute appearing right frontal subdural hematoma measuring 5 mm with rightward midline shift. Consult was placed to neurosurgery. Warfarin is being held and neurosurgery recommended CT head in 7 to [address] Nicholas, patient would benefit from some rehab at [facility] and we can repeat CT head in about a week's time. We will continue current treatment and plan for [facility] likely tomorrow or the next day. 09/15 Patient afebrile, no complaints today. I had lengthy discussion with over the phone about small to moderate subacute appearing right frontal subdural hematoma seen on CT head. 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 Had discussion with son at bedside about the likely diagnosis of leukemia but family does not want work-up with bone marrow biopsy, subdural hematoma seen on CT head, fluid accumulation in his bilateral legs and upper extremity, and concerns for aspiration risk. Plan still remains discharge to [facility] when stable. Will convert p.o. Zyvox to IV given aspiration risk. Consult placed to [facility] time 30 minutes spent in review of labs, review of imaging, review of charts, discussion with , discussion with son, and discussion with cardiology HVAC LEAD. Vitals/I&O Vitals/I&O: Vital Signs Date Time Temp Pulse Resp B/P (MAP) Pulse Ox O2 Delivery O2 Flow Rate FiO2 09/15/20 07:00 97.3 87 16 89/43 (58) 98 Room Air 97.3 I & O 09/14/20 09/14/20 09/15/20 15:00 23:00 07:00 Intake Total 700 ml 350 ml 100 ml Balance 700 ml 350 ml 100 ml Physical Exam Physical Exam: GENERAL: CONFUSED male, not in distress distress. HEENT: Normocephalic, atraumatic. Oral mucosa moist. NECK: Supple. LUNGS: Mild crackles. HEART: S1, S2. Pacemaker without signs of complication. ABDOMEN: Soft, nontender, and nondistended. EXTREMITIES: No cyanosis bilateral lower extremity swelling present. NO Calf tenderness present left lower extremity MSK changes suggestive of DJD, pain in left knee, no effusion DERMATOLOGIC: Warm, dry. No generalized rash. NEUROLOGIC: Alert, awake, answers questions appropriately. PSYCHIATRIC: Calm and cooperative. General: Alert, Cooperative, No acute distress Heart: Normal S1, Normal S2, No murmurs Lungs: Crackles (bases ) Abdomen: Normal bowel sounds, Soft, No tenderness Extremities: No clubbing, No cyanosis Skin: No rashes, No breakdown Labs Labs: Laboratory Tests Test 09/14/20 12:28 09/14/20 17:38 09/14/20 20:45 09/15/20 07:10 Glucose (Fingerstick) 126 mg/dL (70-99) 102 mg/dL (70-99) 124 mg/dL (70-99) White Blood Count 49.4 x10^3/uL (4.0-11.0) Red Blood Count 3.54 x10^6/uL (4.30-5.70) Hemoglobin 9.8 g/dL (13.0-17.5) Hematocrit 33.0 % (39.0-53.0) Mean Corpuscular Volume 93 fL (79-100) Mean Corpuscular Hemoglobin 28 pg (25-35) Mean Corpuscular Hemoglobin Concent 30 g/dL (31-37) Red Cell Distribution Width 24.7 % (11.5-14.5) Platelet Count 193 x10^3/uL (140-400) Neutrophils (%) (Auto) 96 % (31-73) Lymphocytes (%) (Auto) 3 % (24-48) Monocytes (%) (Auto) 2 % (0-9) Eosinophils (%) (Auto) 0 % (0-3) Basophils (%) (Auto) 0 % (0-3) Neutrophils # (Auto) 47.3 x10^3/uL (1.8-7.7) Lymphocytes # (Auto) 1.3 x10^3/uL (1.0-4.8) Monocytes # (Auto) 0.8 x10^3/uL (0.0-1.1) Eosinophils # (Auto) 0.1 x10^3/uL (0.0-0.7) Basophils # (Auto) 0.0 x10^3/uL (0.0-0.2) Sodium Level 141 mmol/L (136-145) Potassium Level 4.1 mmol/L (3.5-5.1) Chloride Level 105 mmol/L (98-107) Carbon Dioxide Level 18 mmol/L (21-32) Anion Gap 18 (6-14) Blood Urea Nitrogen 74 mg/dL (8-26) Creatinine 2.0 mg/dL (0.7-1.3) Estimated GFR (Cockcroft-Gault) 38.3 Glucose Level 92 mg/dL (70-99) Calcium Level 8.0 mg/dL (8.5-10.1) Test 09/15/20 08:04 Glucose (Fingerstick) 89 mg/dL (70-99) Assessment and Plan Assessmemt and Plan Problems Medical Problems: (1) CHF (congestive heart failure) Status: Acute Comment Review of Relevant I have reviewed the following items tiffany (where applicable) has been applied. Medications: Current Medications Medications (Trade) Dose Ordered Sig/Rakesh Route PRN Reason Start Time Stop Time Status Last Admin Dose Admin Phytonadione 10 mg/Dextrose 51 ml @ 102 mls/hr 1X ONCE IV 09/14/20 14:00 09/14/20 14:29 DC 09/14/20 13:56 Justifications for Admission Other Justification ANEESH PRABHAKAR MD Sep 15, 2020 09:57
--- NOTE | 2020-09-15 10:07 | PDOC ---
DATE OF SERVICE DATE: 09/15/20 TIME: 10:07 SUBJECTIVE ROS Stable, On RA OBJECTIVE Vital Signs Vital Signs Date Time Temp Pulse Resp B/P (MAP) Pulse Ox O2 Delivery O2 Flow Rate FiO2 09/15/20 07:00 97.3 87 16 89/43 (58) 98 Room Air 97.3 I & 0 Intake and Output 09/15/20 07:00 Intake Total 1150 ml Balance 1150 ml Intake Oral 1050 ml IV Total 100 ml # Voids 6 # Bowel Movements 2 PHYSICAL EXAM Physical Exam Gen NAD , HEEN OM moist, hard of hearing Neck Supple Lungs decreased bases, Non labored CV S1`s2 Abd Soft, NT Neuro grossly Normal Skin No rash No CVA OR SP tenderness, No gaytan DIAGNOSIS/ASSESSMENT Assessment & Plan DION - suspect Cardiorenal , Cr elevated in July - admitted for CHF, prior labs in [facility] records with normal baseline Cr .currently stable renal function , probably his new baseline monitor, supportive care, Urine output not recorded ,Wt has been stable Avoid nephrotoxins and overdiuresis .. Diuretics per cardiology has been getting IV bumex bid ) Acute on chronic systolic heart failure- appears compensated Echocardiogram 2020 ejection fraction of 40%. On Bumex at home . Card managing, currently on IV Bumex HyperNatremia - resolved HypoKalemia- Normal K today Exacerbation of COPD Chest x-ray- left lower lobe pneumonia Atrial fibrillation. History of coronary artery disease. Diabetes mellitus Hypertension; controlled Leukocytosis, neutrophilic/ Thrombocytosis/ Elevated K and L, K/L - per Hem Onc high rislk of myelofibrosis . Patient is not interested in further evaluation incluiding BM Bx . subacute appearing right frontal subdural hematoma. 5 mm rightward midline shift.warfarin is being held. NS following COMMENT/RELEVANT DATA Meds Current Medications Medications (Trade) Dose Ordered Sig/Rakesh Start Time Stop Time Status Last Admin Dose Admin Acetaminophen (Tylenol) 650 mg PRN Q4HRS PRN 09/03/20 21:00 09/04/20 20:59 DC Acetaminophen/ Hydrocodone Bitart (Lortab 5/325) 1 tab PRN Q6HRS PRN 09/03/20 22:15 09/14/20 18:23 1 TAB Albuterol Sulfate (Ventolin Neb Soln) 2.5 mg PRN Q6HRS PRN 09/12/20 08:15 Albuterol/ Ipratropium (Duoneb) 3 ml RTQID 09/04/20 08:00 09/12/20 08:01 DC 09/10/20 20:11 3 ML Ascorbic Acid (Vitamin C) 250 mg DAILY 09/04/20 09:00 09/14/20 08:48 250 MG Aspirin (Aspirin Chewable) 81 mg BID 09/04/20 09:00 09/13/20 09:28 DC 09/12/20 21:09 81 MG Atorvastatin Calcium (Lipitor) 40 mg DAILY 09/04/20 09:00 09/14/20 08:48 40 MG Bisacodyl (Dulcolax Supp) 10 mg PRN DAILY PRN 09/07/20 18:45 09/08/20 08:29 10 MG Bumetanide (Bumex) 1 mg BID92 09/05/20 09:00 09/15/20 09:13 1 MG Dextrose 1,000 ml @ 25 mls/hr Q24H 09/11/20 19:15 09/11/20 20:29 25 MLS/HR Dextrose (Dextrose 50%-Water Syringe) 12.5 gm PRN Q15MIN PRN 09/03/20 22:15 09/12/20 20:55 12.5 GM Digoxin (Lanoxin) 125 mcg DAILY 09/04/20 09:00 09/04/20 07:47 DC Docusate Sodium (Colace) 100 mg TID 09/04/20 09:00 09/13/20 10:58 100 MG Furosemide (Lasix) 20 mg DAILY 09/11/20 09:00 UNV Insulin Human Lispro (HumaLOG) 0-7 UNITS TIDWMEALS 09/04/20 08:00 09/04/20 12:32 4 UNITS Lactobacillus Rhamnosus (Culturelle) 1 cap BID 09/04/20 21:00 09/14/20 21:06 1 CAP Linezolid (Zyvox) 600 mg BID 09/09/20 12:00 09/15/20 09:56 DC 09/14/20 21:06 600 MG Linezolid/Dextrose 300 ml @ 300 mls/hr Q12HR 09/15/20 11:00 Meropenem 500 mg/ Sodium Chloride 50 ml @ 100 mls/hr Q8HRS 09/10/20 14:00 09/15/20 06:00 100 MLS/HR Metoprolol Tartrate (Lopressor) 100 mg DAILY 09/04/20 09:00 09/04/20 07:29 DC Micafungin Sodium 100 mg/Dextrose 100 ml @ 100 mls/hr Q24H 09/11/20 10:00 09/14/20 10:18 100 MLS/HR Morphine Sulfate (Morphine Sulfate) 2 mg PRN Q2HR PRN 09/03/20 21:00 09/04/20 20:59 DC Ondansetron HCl (Zofran) 4 mg PRN Q8HRS PRN 09/03/20 21:00 09/04/20 20:59 DC Phenyleph/Shark Oil/Min Oil/Petrol (Preparation H) 1 mihaela PRN QID PRN 09/10/20 19:15 Phytonadione 10 mg/Dextrose 51 ml @ 102 mls/hr 1X ONCE 09/14/20 14:00 09/14/20 14:29 DC 09/14/20 13:56 102 MLS/HR Piperacillin Sod/ Tazobactam Sod (Zosyn Per Pharmacy) 1 each PRN DAILY PRN 09/03/20 22:15 Cancel Piperacillin Sod/ Tazobactam Sod 3.375 gm/Sodium Chloride 50 ml @ 100 mls/hr Q6HRS 09/04/20 06:00 09/10/20 11:42 DC 09/10/20 05:09 100 MLS/HR Potassium Bicarbonate (Potassium Effervescent Tablet) 40 meq 1X ONCE 09/05/20 08:00 09/05/20 08:01 DC 09/05/20 09:06 40 MEQ Potassium Chloride (Klor-Con) 20 meq 1X ONCE 09/09/20 10:00 09/09/20 10:01 DC 09/09/20 09:32 20 MEQ Prednisone (Prednisone) 40 mg 1X ONCE 09/03/20 22:15 09/03/20 22:21 DC 09/03/20 22:41 40 MG Tamsulosin HCl (Flomax) 0.4 mg QHS 09/05/20 21:00 09/14/20 21:06 0.4 MG Warfarin Sodium (Coumadin - No Dose Today) 1 each 1X WARF ONCE 09/08/20 16:00 09/08/20 16:01 Cancel Warfarin Sodium (Coumadin Per Pharmacy) 1 each PRN DAILY PRN 09/03/20 22:15 09/13/20 09:28 DC 09/13/20 09:06 1 EACH Warfarin Sodium (Coumadin) 4 mg 1X WARF ONCE 09/13/20 16:00 09/13/20 09:28 DC Lab Laboratory Tests Test 09/14/20 12:28 09/14/20 17:38 09/14/20 20:45 09/15/20 07:10 Glucose (Fingerstick) 126 mg/dL (70-99) 102 mg/dL (70-99) 124 mg/dL (70-99) White Blood Count 49.4 x10^3/uL (4.0-11.0) Red Blood Count 3.54 x10^6/uL (4.30-5.70) Hemoglobin 9.8 g/dL (13.0-17.5) Hematocrit 33.0 % (39.0-53.0) Mean Corpuscular Volume 93 fL (79-100) Mean Corpuscular Hemoglobin 28 pg (25-35) Mean Corpuscular Hemoglobin Concent 30 g/dL (31-37) Red Cell Distribution Width 24.7 % (11.5-14.5) Platelet Count 193 x10^3/uL (140-400) Neutrophils (%) (Auto) 96 % (31-73) Lymphocytes (%) (Auto) 3 % (24-48) Monocytes (%) (Auto) 2 % (0-9) Eosinophils (%) (Auto) 0 % (0-3) Basophils (%) (Auto) 0 % (0-3) Neutrophils # (Auto) 47.3 x10^3/uL (1.8-7.7) Lymphocytes # (Auto) 1.3 x10^3/uL (1.0-4.8) Monocytes # (Auto) 0.8 x10^3/uL (0.0-1.1) Eosinophils # (Auto) 0.1 x10^3/uL (0.0-0.7) Basophils # (Auto) 0.0 x10^3/uL (0.0-0.2) Prothrombin Time 19.6 SEC (11.7-14.0) Prothromb Time International Ratio 1.7 (0.8-1.1) Sodium Level 141 mmol/L (136-145) Potassium Level 4.1 mmol/L (3.5-5.1) Chloride Level 105 mmol/L (98-107) Carbon Dioxide Level 18 mmol/L (21-32) Anion Gap 18 (6-14) Blood Urea Nitrogen 74 mg/dL (8-26) Creatinine 2.0 mg/dL (0.7-1.3) Estimated GFR (Cockcroft-Gault) 38.3 Glucose Level 92 mg/dL (70-99) Calcium Level 8.0 mg/dL (8.5-10.1) Test 09/15/20 08:04 Glucose (Fingerstick) 89 mg/dL (70-99) Results All relevant outside records, renal labs, imaging studies, telemetry/EKG's were reviewed. Justicifation of Admission Dx: Justifications for Admission: Justification of Admission Dx: Yes DEXTER ULLOA MD Sep 15, 2020 10:07
[2020-09-15] MEDS: MICAFUNGIN 100 MG in IV DEXTROSE 5% 100ML 100 ML IV SCH (10:14)
[2020-09-15 11:00] VITALS: BP 89/40
--- NOTE | 2020-09-15 11:04 | PDOC ---
PROGRESS NOTES Date of Service DATE: 09/15/20 TIME: 10:54 Subjective Subjective No interval events. No new symptoms. His 2 sons are present at bedside. We discussed the results of recently obtained lab test. Patient reported that he is not interested in a bone marrow biopsy or further evaluation or treatment of his suspected blood disorders/cancer Objective Objective Vital Signs Date Time Temp Pulse Resp B/P (MAP) Pulse Ox O2 Delivery O2 Flow Rate FiO2 09/15/20 08:00 Room Air 09/15/20 07:00 97.3 87 16 89/43 (58) 98 97.3 Intake and Output 09/15/20 07:00 Intake Total 1150 ml Balance 1150 ml Intake Oral 1050 ml IV Total 100 ml # Voids 6 # Bowel Movements 2 Physical Exam Physical Exam General: Awake, alert, no distress Head: Atraumatic, no conjunctival icterus, normal oral cavity mucosa Neck: Supple, no lymphadenopathy Chest: No trauma noted Cardiovascular: Regular rhythm, normal rate, no murmurs Respiratory: Bilateral air entry noted, lungs clear to auscultation bilaterally. No accessory muscle use Abdominal: Abdomen is soft, nontender, nondistended. Bowel sounds were normal. No hepatomegaly or splenomegaly Musculoskeletal: No deformity noted Extremities: No edema noted Skin: No rash or lesions Neurologic: Alert and oriented x3, no grossly evident neurologic deficits noted. 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 Given presence of JAK2 mutation and concomitant anemia and leukocytosis with teardrop cells, myelofibrosis was the leading differential diagnosis. 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 We discussed the natural history and prognosis of high risk myelofibrosis and the median survival of 1 year that is associated with this disease subgroup -I discussed the role of bone marrow biopsy in establishing the diagnosis of myelofibrosis and evaluating for myeloproliferative disorders. We discussed the potential risks and benefits of obtaining a bone marrow biopsy. The patient is not interested in further evaluation of his condition -Since he is no longer interested in evaluation and management of his suspected myeloproliferative disorder, I recommended focusing on supportive care and transition to hospice. -Discussed with family and Dr. Olivarez -Defer to cardiology service regarding management of heart failure -Defer to pulmonology regarding management of acute hypoxic respiratory failure and antibiotics -Rest per primary service Benson Morales MD Medical Oncology/Hematology Ph: [phone] Comment Review of Relevant I have reviewed the following items tiffany (where applicable) has been applied. Labs Laboratory Tests Test 09/13/20 11:45 09/13/20 17:02 09/13/20 21:09 09/14/20 06:15 Glucose (Fingerstick) 131 mg/dL (70-99) 97 mg/dL (70-99) 112 mg/dL (70-99) Sodium Level 145 mmol/L (136-145) Potassium Level 3.3 mmol/L (3.5-5.1) Chloride Level 108 mmol/L (98-107) Carbon Dioxide Level 20 mmol/L (21-32) Anion Gap 17 (6-14) Blood Urea Nitrogen 62 mg/dL (8-26) Creatinine 1.8 mg/dL (0.7-1.3) Estimated GFR (Cockcroft-Gault) 43.3 Glucose Level 88 mg/dL (70-99) Calcium Level 8.5 mg/dL (8.5-10.1) Test 09/14/20 08:20 09/14/20 12:28 09/14/20 17:38 09/14/20 20:45 Glucose (Fingerstick) 84 mg/dL (70-99) 126 mg/dL (70-99) 102 mg/dL (70-99) 124 mg/dL (70-99) Test 09/15/20 07:10 09/15/20 08:04 White Blood Count 49.4 x10^3/uL (4.0-11.0) Red Blood Count 3.54 x10^6/uL (4.30-5.70) Hemoglobin 9.8 g/dL (13.0-17.5) Hematocrit 33.0 % (39.0-53.0) Mean Corpuscular Volume 93 fL (79-100) Mean Corpuscular Hemoglobin 28 pg (25-35) Mean Corpuscular Hemoglobin Concent 30 g/dL (31-37) Red Cell Distribution Width 24.7 % (11.5-14.5) Platelet Count 193 x10^3/uL (140-400) Neutrophils (%) (Auto) 96 % (31-73) Lymphocytes (%) (Auto) 3 % (24-48) Monocytes (%) (Auto) 2 % (0-9) Eosinophils (%) (Auto) 0 % (0-3) Basophils (%) (Auto) 0 % (0-3) Neutrophils # (Auto) 47.3 x10^3/uL (1.8-7.7) Lymphocytes # (Auto) 1.3 x10^3/uL (1.0-4.8) Monocytes # (Auto) 0.8 x10^3/uL (0.0-1.1) Eosinophils # (Auto) 0.1 x10^3/uL (0.0-0.7) Basophils # (Auto) 0.0 x10^3/uL (0.0-0.2) Prothrombin Time 19.6 SEC (11.7-14.0) Prothromb Time International Ratio 1.7 (0.8-1.1) Sodium Level 141 mmol/L (136-145) Potassium Level 4.1 mmol/L (3.5-5.1) Chloride Level 105 mmol/L (98-107) Carbon Dioxide Level 18 mmol/L (21-32) Anion Gap 18 (6-14) Blood Urea Nitrogen 74 mg/dL (8-26) Creatinine 2.0 mg/dL (0.7-1.3) Estimated GFR (Cockcroft-Gault) 38.3 Glucose Level 92 mg/dL (70-99) Calcium Level 8.0 mg/dL (8.5-10.1) Glucose (Fingerstick) 89 mg/dL (70-99) Laboratory Tests Test 09/14/20 12:28 09/14/20 17:38 09/14/20 20:45 09/15/20 07:10 Glucose (Fingerstick) 126 mg/dL (70-99) 102 mg/dL (70-99) 124 mg/dL (70-99) White Blood Count 49.4 x10^3/uL (4.0-11.0) Red Blood Count 3.54 x10^6/uL (4.30-5.70) Hemoglobin 9.8 g/dL (13.0-17.5) Hematocrit 33.0 % (39.0-53.0) Mean Corpuscular Volume 93 fL (79-100) Mean Corpuscular Hemoglobin 28 pg (25-35) Mean Corpuscular Hemoglobin Concent 30 g/dL (31-37) Red Cell Distribution Width 24.7 % (11.5-14.5) Platelet Count 193 x10^3/uL (140-400) Neutrophils (%) (Auto) 96 % (31-73) Lymphocytes (%) (Auto) 3 % (24-48) Monocytes (%) (Auto) 2 % (0-9) Eosinophils (%) (Auto) 0 % (0-3) Basophils (%) (Auto) 0 % (0-3) Neutrophils # (Auto) 47.3 x10^3/uL (1.8-7.7) Lymphocytes # (Auto) 1.3 x10^3/uL (1.0-4.8) Monocytes # (Auto) 0.8 x10^3/uL (0.0-1.1) Eosinophils # (Auto) 0.1 x10^3/uL (0.0-0.7) Basophils # (Auto) 0.0 x10^3/uL (0.0-0.2) Prothrombin Time 19.6 SEC (11.7-14.0) Prothromb Time International Ratio 1.7 (0.8-1.1) Sodium Level 141 mmol/L (136-145) Potassium Level 4.1 mmol/L (3.5-5.1) Chloride Level 105 mmol/L (98-107) Carbon Dioxide Level 18 mmol/L (21-32) Anion Gap 18 (6-14) Blood Urea Nitrogen 74 mg/dL (8-26) Creatinine 2.0 mg/dL (0.7-1.3) Estimated GFR (Cockcroft-Gault) 38.3 Glucose Level 92 mg/dL (70-99) Calcium Level 8.0 mg/dL (8.5-10.1) Test 09/15/20 08:04 Glucose (Fingerstick) 89 mg/dL (70-99) Microbiology 09/11/20 Blood Culture - Preliminary, Resulted NO GROWTH AFTER 3 DAYS Medications Current Medications Furosemide (Lasix) 40 mg 1X ONCE IVP Last administered on 09/03/20at 21:07; Start 09/03/20 at 21:00; Stop 09/03/20 at 21:01; Status DC Piperacillin Sod/ Tazobactam Sod 3.375 gm/Sodium Chloride 50 ml @ 100 mls/hr 1X ONCE IV Last administered on 09/03/20at 21:08; Start 09/03/20 at 21:00; Stop 09/03/20 at 21:29; Status DC Ondansetron HCl (Zofran) 4 mg PRN Q8HRS PRN IV NAUSEA/VOMITING; Start 09/03/20 at 21:00; Stop 09/04/20 at 20:59; Status DC Morphine Sulfate (Morphine Sulfate) 2 mg PRN Q2HR PRN IV PAIN; Start 09/03/20 at 21:00; Stop 09/04/20 at 20:59; Status DC Acetaminophen (Tylenol) 650 mg PRN Q4HRS PRN PO FEVER > 100.3'F; Start 09/03/20 at 21:00; Stop 09/04/20 at 20:59; Status DC Ascorbic Acid (Vitamin C) 250 mg DAILY PO Last administered on 09/14/20at 08:48; Start 09/04/20 at 09:00 Aspirin (Aspirin Chewable) 81 mg BID PO Last administered on 09/12/20at 21:09; Start 09/04/20 at 09:00; Stop 09/13/20 at 09:28; Status DC Atorvastatin Calcium (Lipitor) 40 mg DAILY PO Last administered on 09/14/20at 08:48; Start 09/04/20 at 09:00 Bumetanide (Bumex) 1 mg BID92 PO ; Start 09/04/20 at 09:00; Stop 09/04/20 at 07:53; Status DC Digoxin (Lanoxin) 125 mcg DAILY PO ; Start 09/04/20 at 09:00; Stop 09/04/20 at 07:47; Status DC Docusate Sodium (Colace) 100 mg TID PO Last administered on 09/13/20at 10:58; Start 09/04/20 at 09:00 Acetaminophen/ Hydrocodone Bitart (Lortab 5/325) 1 tab PRN Q6HRS PRN PO PAIN Last administered on 09/14/20at 18:23; Start 09/03/20 at 22:15 Metoprolol Tartrate (Lopressor) 100 mg DAILY PO ; Start 09/04/20 at 09:00; Stop 09/04/20 at 07:29; Status DC Warfarin Sodium (Coumadin Per Pharmacy) 1 each PRN DAILY PRN MC SEE COMMENTS Last administered on 09/13/20 09:06; Start 09/03/20 at 22:15; Stop 09/13/20 at 09:28; Status DC Piperacillin Sod/ Tazobactam Sod (Zosyn Per Pharmacy) 1 each PRN DAILY PRN MC SEE COMMENTS; Start 09/03/20 at 22:15; Status Cancel Albuterol/ Ipratropium (Duoneb) 3 ml RTQID NEB Last administered on 09/10/20 20:11; Start 09/04/20 at 08:00; Stop 09/12/20 at 08:01; Status DC Prednisone (Prednisone) 40 mg 1X ONCE PO Last administered on 09/03/20at 22:41; Start 09/03/20 at 22:15; Stop 09/03/20 at 22:21; Status DC Insulin Human Lispro (HumaLOG) 0-7 UNITS TIDWMEALS SQ Last administered on 09/04/20at 12:32; Start 09/04/20 at 08:00 Dextrose (Dextrose 50%-Water Syringe) 12.5 gm PRN Q15MIN PRN IV SEE COMMENTS Last administered on 09/12/20at 20:55; Start 09/03/20 at 22:15 Piperacillin Sod/ Tazobactam Sod 3.375 gm/Sodium Chloride 50 ml @ 100 mls/hr Q6HRS IV Last administered on 09/10/20 05:09; Start 09/04/20 at 06:00; Stop 09/10/20 at 11:42; Status DC Warfarin Sodium (Coumadin - No Dose Today) 1 each 1X WARF ONCE MC Last administered on 09/04/20at 16:00; Start 09/04/20 at 16:00; Stop 09/04/20 at 16:01; Status DC Bumetanide (Bumex) 2.5 mg BID92 IV Last administered on 09/04/20at 15:23; Start 09/04/20 at 09:00; Stop 09/05/20 at 07:46; Status DC Lactobacillus Rhamnosus (Culturelle) 1 cap BID PO Last administered on 09/14/20at 21:06; Start 09/04/20 at 21:00 Tamsulosin HCl (Flomax) 0.4 mg QHS PO Last administered on 09/14/20at 21:06; Start 09/05/20 at 21:00 Bumetanide (Bumex) 1 mg BID92 IV Last administered on 09/15/20at 09:13; Start 09/05/20 at 09:00 Potassium Bicarbonate (Potassium Effervescent Tablet) 40 meq 1X ONCE PO Last administered on 09/05/20at 09:06; Start 09/05/20 at 08:00; Stop 09/05/20 at 08:01; Status DC Warfarin Sodium (Coumadin - No Dose Today) 1 each 1X WARF ONCE MC Last administered on 09/05/20at 15:58; Start 09/05/20 at 16:00; Stop 09/05/20 at 16:01; Status DC Warfarin Sodium (Coumadin - No Dose Today) 1 each 1X WARF ONCE MC Last administered on 09/06/20at 16:00; Start 09/06/20 at 16:00; Stop 09/06/20 at 16:01; Status DC Warfarin Sodium (Coumadin - No Dose Today) 1 each 1X WARF ONCE MC ; Start 09/07/20 at 16:00; Stop 09/07/20 at 16:01; Status DC Bisacodyl (Dulcolax Supp) 10 mg 1X ONCE [place] ; Start 09/07/20 at 13:00; Stop 09/07/20 at 18:32; Status DC Bisacodyl (Dulcolax Supp) 10 mg PRN DAILY PRN [place] CONSTIPATION Last administered on 09/08/20at 08:29; Start 09/07/20 at 18:45 Warfarin Sodium (Coumadin - No Dose Today) 1 each 1X WARF ONCE MC ; Start 09/08/20 at 16:00; Stop 09/08/20 at 16:01; Status Cancel Warfarin Sodium (Coumadin) 4 mg 1X WARF ONCE PO Last administered on 09/08/20at 17:29; Start 09/08/20 at 16:00; Stop 09/08/20 at 16:01; Status DC Warfarin Sodium (Coumadin) 4 mg 1X WARF ONCE PO Last administered on 09/09/20at 16:53; Start 09/09/20 at 16:00; Stop 09/09/20 at 16:01; Status DC Potassium Chloride (Klor-Con) 20 meq 1X ONCE PO Last administered on 09/09/20at 09:32; Start 09/09/20 at 10:00; Stop 09/09/20 at 10:01; Status DC Linezolid (Zyvox) 600 mg BID PO Last administered on 09/14/20at 21:06; Start 09/09/20 at 12:00; Stop 09/15/20 at 09:56; Status DC Warfarin Sodium (Coumadin) 4 mg 1X WARF ONCE PO Last administered on 09/10/20at 16:47; Start 09/10/20 at 16:00; Stop 09/10/20 at 16:01; Status DC Meropenem 500 mg/ Sodium Chloride 50 ml @ 100 mls/hr Q8HRS IV Last administered on 09/15/20at 06:00; Start 09/10/20 at 14:00 Furosemide (Lasix) 20 mg DAILY IVP ; Start 09/11/20 at 09:00; Status UNV Phenyleph/Shark Oil/Min Oil/Petrol (Preparation H) 1 mihaela PRN QID PRN RC RECTAL PAIN; Start 09/10/20 at 19:15 Micafungin Sodium 100 mg/Dextrose 100 ml @ 100 mls/hr Q24H IV Last administered on 09/15/20at 10:14; Start 09/11/20 at 10:00 Warfarin Sodium (Coumadin) 4 mg 1X WARF ONCE PO ; Start 09/11/20 at 16:00; Stop 09/11/20 at 16:01; Status DC Dextrose 1,000 ml @ 25 mls/hr Q24H IV Last administered on 09/11/20at 20:29; Start 09/11/20 at 19:15 Warfarin Sodium (Coumadin) 3 mg 1X WARF ONCE PO ; Start 09/12/20 at 16:00; Stop 09/13/20 at 09:28; Status DC Albuterol Sulfate (Ventolin Neb Soln) 2.5 mg PRN Q6HRS PRN NEB SHORTNESS OF BREATH; Start 09/12/20 at 08:15 Warfarin Sodium (Coumadin) 4 mg 1X WARF ONCE PO ; Start 09/13/20 at 16:00; Stop 09/13/20 at 09:28; Status DC Phytonadione 10 mg/Dextrose 51 ml @ 102 mls/hr 1X ONCE IV Last administered on 09/14/20at 13:56; Start 09/14/20 at 14:00; Stop 09/14/20 at 14:29; Status DC Linezolid/Dextrose 300 ml @ 300 mls/hr Q12HR IV ; Start 09/15/20 at 11:00 Active Scripts Active [place] 5-325 Tablet (Acetaminophen/Hydrocodone Bitart) 1 Each Tablet 7.5 Mg PO PRN Q6HRS PRN 6 Days LAST DOSE GIVEN: Reported Warfarin Sodium 2 Mg Tablet 4 Mg PO Warfarin Sodium 2 Mg Tablet 6 Mg PO QMTH Bumetanide 1 Mg Tablet 1 Mg PO BID Colace (Docusate Sodium) 100 Mg Capsule 1 Cap PO TID Metamucil Powder (Psyllium Seed (with Sugar)) 575 Gm Powder 575 Gm PO DAILY Atorvastatin Calcium 40 Mg Tablet 1 Tab PO DAILY Metoprolol Tartrate 100 Mg Tablet 100 Mg PO DAILY Tamsulosin Hcl 0.4 Mg Cap.er.24h 0.4 Mg PO HS DAILY Vitamin C (Ascorbic Acid) 500 Mg Tablet 250 Mg PO DAILY Aspirin 81 Mg Tab.chew 81 Mg PO BID Lanoxin (Digoxin) 125 Mcg Tablet 125 Mcg PO DAILY Vitals/I & O Vital Sign - Last 24 Hours 09/14/20 09/14/20 09/14/20 09/14/20 11:00 15:00 18:23 18:50 Temp 98.0 98.2 98.0 98.2 Pulse 98 105 Resp 20 24 20 20 B/P (MAP) 103/50 (67) 107/47 (67) Pulse Ox 95 96 96 96 O2 Delivery Room Air Room Air Room Air Room Air 09/14/20 09/14/20 09/14/20 09/15/20 19:00 20:15 22:52 03:00 Temp 97.5 97.6 97.9 97.5 97.6 97.9 Pulse 98 97 88 Resp 18 16 16 B/P (MAP) 95/32 (53) 107/46 (66) 99/51 (67) Pulse Ox 98 98 97 O2 Delivery Room Air Room Air Room Air Room Air 09/15/20 09/15/20 07:00 08:00 Temp 97.3 97.3 Pulse 87 Resp 16 B/P (MAP) 89/43 (58) Pulse Ox 98 O2 Delivery Room Air Room Air Intake and Output 09/14/20 09/14/20 09/15/20 15:00 23:00 07:00 Intake Total 700 ml 350 ml 100 ml Balance 700 ml 350 ml 100 ml Justifications for Admission Other Justification Nutrition Consultation Dietary Evaluation: Recommendations by RD: Dietary education by RD, Increase Calorie Intake, Protein supplementation Comments: Pt with chewing difficulty, benefits and agrees to [facility] soft diet liberlized to regular since po intake is not much oral nutrition supplements: fajardo flavor magic cup and strawberry Glucerna Vit c in place, REC mvi q day per wound protocal Expected Outcomes/Goals: to meet >75% est nutr needs improved wound status Malnutrition Findings: Body Fat Depletion (Non Severe: Mod to Severe Weight Status: Appropriate EDI MORALES MD Sep 15, 2020 11:04
[2020-09-15] MEDS ORDERED: MORPHINE SULFATE 2 MG/ML VIAL. IV PRN (11:30)
[2020-09-15] MEDS: MORPHINE SULFATE 2 MG/ML VIAL. IV PRN ×3 (14:13→20:11)
[2020-09-15 15:00] VITALS: BP 100/47
[2020-09-15 19:00] VITALS: BP 75/39
[2020-09-15] MEDS: IV DEXTROSE 5% 1,000 ML IV SCH (19:15)
[2020-09-15] MEDS: TAMSULOSIN 0.4 MG CAP.ER.24H. PO SCH (20:18)
--- NOTE | 2020-09-15 21:48 | PDOC ---
PROGRESS NOTES Date of Service: DATE: 09/15/20 TIME: 21:48 Subjective Subjective Somnolent but comfortable Objective Objective Vital Signs Date Time Temp Pulse Resp B/P (MAP) Pulse Ox O2 Delivery O2 Flow Rate FiO2 09/15/20 20:11 16 97 Room Air 09/15/20 19:00 97.9 105 75/39 (51) 97.9 Intake and Output 09/15/20 07:00 Intake Total 1150 ml Balance 1150 ml Intake Oral 1050 ml IV Total 100 ml # Voids 6 # Bowel Movements 2 Physical Exam Abdomen: Normal bowel sounds, Soft, No tenderness Heart: Normal S1, Normal S2, Other (Heart rate irregular) Extremities: Other (2+ pitting edema) General: No acute distress HEENT: Atraumatic, EOMI, Mucous membr. moist/pink, Other (upper dentures) Lungs: Clear to auscultation, Normal air movement Neuro: Normal speech Psych/Mental Status: Mood NL Diagnosis RENAL FAILURE: Acute (Acute tubular necrosis), Chronic (CKD stage III) Assessment Assessment 1. Acute respiratory failure secondary to acute on chronic combined systolic and diastolic heart failure and untreated USAMA. 2. 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 Echo 07/28 with LVEF 45%. Improved since admission. Patient appears to be over diuresed based on progressive BUN/creatinine elevation. Residual 2+ edema most probably secondary to hypoalbuminemia (1.7). Hold Bumex. 3. CAD; catheterization 08/2018 with ERP PM of LAD with collaterals, which is unchanged from previous cath in 2013. clinically stable, CP free. 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 4. Permanent AFIB; rate controlled. Warfarin stopped secondary to subdural hematoma. He is a poor candidate for long-term anticoagulation. 5. 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 [facility]) - recent device check showed normal function. 6. Hypertension; controlled 7. Hyperlipidemia; statin 8. Diabetes, II; as per IM 9. DION on CKD; nephrology following 10. Encephalopathy; CT head with small to moderate subacute appearing right frontal SDH with rightward midline shift. neurosurgery following Plan Plan of Care Problems Medical Problems: (1) CHF (congestive heart failure) Status: Acute Comment Review of Relevant I have reviewed the following items tiffany (where applicable) has been applied. Labs Laboratory Tests Test 6/9/21 07:10 09/15/20 08:04 09/15/20 12:25 09/15/20 17:30 White Blood Count 49.4 x10^3/uL (4.0-11.0) Red Blood Count 3.54 x10^6/uL (4.30-5.70) Hemoglobin 9.8 g/dL (13.0-17.5) Hematocrit 33.0 % (39.0-53.0) Mean Corpuscular Volume 93 fL (79-100) Mean Corpuscular Hemoglobin 28 pg (25-35) Mean Corpuscular Hemoglobin Concent 30 g/dL (31-37) Red Cell Distribution Width 24.7 % (11.5-14.5) Platelet Count 193 x10^3/uL (140-400) Neutrophils (%) (Auto) 96 % (31-73) Lymphocytes (%) (Auto) 3 % (24-48) Monocytes (%) (Auto) 2 % (0-9) Eosinophils (%) (Auto) 0 % (0-3) Basophils (%) (Auto) 0 % (0-3) Neutrophils # (Auto) 47.3 x10^3/uL (1.8-7.7) Lymphocytes # (Auto) 1.3 x10^3/uL (1.0-4.8) Monocytes # (Auto) 0.8 x10^3/uL (0.0-1.1) Eosinophils # (Auto) 0.1 x10^3/uL (0.0-0.7) Basophils # (Auto) 0.0 x10^3/uL (0.0-0.2) Prothrombin Time 19.6 SEC (11.7-14.0) Prothromb Time International Ratio 1.7 (0.8-1.1) Sodium Level 141 mmol/L (136-145) Potassium Level 4.1 mmol/L (3.5-5.1) Chloride Level 105 mmol/L (98-107) Carbon Dioxide Level 18 mmol/L (21-32) Anion Gap 18 (6-14) Blood Urea Nitrogen 74 mg/dL (8-26) Creatinine 2.0 mg/dL (0.7-1.3) Estimated GFR (Cockcroft-Gault) 38.3 Glucose Level 92 mg/dL (70-99) Calcium Level 8.0 mg/dL (8.5-10.1) Glucose (Fingerstick) 89 mg/dL (70-99) 137 mg/dL (70-99) 86 mg/dL (70-99) Test 09/15/20 20:33 Glucose (Fingerstick) 91 mg/dL (70-99) Microbiology 09/11/20 Blood Culture - Preliminary, Resulted NO GROWTH AFTER 4 DAYS Medications Current Medications Linezolid/Dextrose 300 ml @ 300 mls/hr Q12HR IV Last administered on 09/15/20at 20:17; Start 09/15/20 at 11:00 Morphine Sulfate (Morphine Sulfate) 2 mg PRN Q2HR PRN IV PAIN Last administered on 09/15/20at 20:11; Start 09/15/20 at 14:15 Morphine Sulfate (Morphine Sulfate) 2 mg PRN Q4HRS PRN IV PAIN Last administered on 09/15/20at 11:37; Start 09/15/20 at 11:30; Stop 09/15/20 at 14:01; Status DC Vitals/I & O Vital Sign - Last 24 Hours 09/14/20 09/15/20 09/15/20 09/15/20 22:52 03:00 07:00 08:00 Temp 97.6 97.9 97.3 97.6 97.9 97.3 Pulse 97 88 87 Resp 16 16 16 B/P (MAP) 107/46 (66) 99/51 (67) 89/43 (58) Pulse Ox 98 97 98 O2 Delivery Room Air Room Air Room Air Room Air 09/15/20 09/15/20 09/15/20 09/15/20 11:00 11:37 12:07 14:13 Temp 98.7 98.7 Pulse 88 Resp 16 B/P (MAP) 89/40 (56) Pulse Ox 94 98 98 98 O2 Delivery Room Air Room Air Room Air Room Air 09/15/20 09/15/20 09/15/20 09/15/20 14:43 15:00 17:19 17:49 Temp 99.3 99.3 Pulse 99 Resp 18 B/P (MAP) 100/47 (64) Pulse Ox 97 90 97 97 O2 Delivery Room Air Room Air Room Air Room Air 09/15/20 09/15/20 09/15/20 19:00 20:00 20:11 Temp 97.9 97.9 Pulse 105 Resp 21 16 B/P (MAP) 75/39 (51) Pulse Ox 99 97 O2 Delivery Room Air Room Air Room Air Intake and Output 09/14/20 09/14/20 09/15/20 15:00 23:00 07:00 Intake Total 700 ml 350 ml 100 ml Balance 700 ml 350 ml 100 ml SHAWN PARKER MD Sep 15, 2020 21:48
--- NOTE | 2020-09-15 22:14 | NUR ---
Pt triggers severe sepsis, notified Dr. Woods. Orders received. Will continue to monitor.
[2020-09-15] MEDS ORDERED: HALOPERIDOL LACTATE 5 MG/ML VIAL. IVP ONE (22:15)
[2020-09-15] MEDS ORDERED: ALBUMIN HUMAN 25% 100 ML IV ONE (22:15)
[2020-09-15 23:00] VITALS: BP 79/40
[2020-09-16 03:00] VITALS: BP 83/42
[2020-09-16] MEDS: MEROPENEM 500 MG in IV NORMAL SALINE 50ML 50 ML IV SCH (05:24)
[2020-09-16 07:00] VITALS: BP 100/56
[2020-09-16 07:23] LABS: BASO % 4 % (0-3); EOS # 0.2 x10^3/uL (0.0-0.7); EOS % 0 % (0-3); HEMATOCRIT 30.4 % (39.0-53.0); HEMOGLOBIN 9.2 g/dL (13.0-17.5); LYMPH # 1.5 x10^3/uL (1.0-4.8); LYMPH % 3 % (24-48); MEAN CORPUSCULAR HEMOGLOBIN 27 pg (25-35); MEAN CORPUSCULAR HGB CONC 30 g/dL (31-37); MEAN CORPUSCULAR VOLUME 89 fL (79-100); MONO # 0.5 x10^3/uL (0.0-1.1); MONO % 1 % (0-9); NEUT # 46.3 x10^3/uL (1.8-7.7); NEUT % 92 % (31-73); PLATELET COUNT 275 x10^3/uL (140-400); RED BLOOD COUNT 3.42 x10^6/uL (4.30-5.70); RED CELL DISTRIBUTION WIDTH 24.8 % (11.5-14.5)
[2020-09-16 07:31] LABS: CALCIUM 8.3 mg/dL (8.5-10.1); CREATININE 2.5 mg/dL (0.7-1.3); GFR 29.6; POTASSIUM 3.9 mmol/L (3.5-5.1)
[2020-09-16 07:56] LABS: WHITE BLOOD COUNT 50.4 x10^3/uL (4.0-11.0)
[2020-09-16] MEDS: INSULIN LISPRO 300 UNITS/3 ML VIAL. SQ SCH ×3 (08:00→17:00)
[2020-09-16] MEDS: BUMETANIDE 1 MG/4 ML VIAL. IV SCH ×2 (09:00→14:00)
[2020-09-16] MEDS: ASCORBIC ACID 500 MG TABLET PO SCH (09:00)
[2020-09-16] MEDS: DOCUSATE SODIUM 100 MG CAPSULE. PO SCH ×3 (09:00→21:00)
[2020-09-16] MEDS: ATORVASTATIN CALCIUM 40 MG TABLET. PO SCH (09:00)
[2020-09-16] MEDS: LACTOBACILLUS RHAMNOSUS GG 1 CAPSULE. PO SCH ×2 (09:00→21:00)
--- NOTE | 2020-09-16 09:06 | PDOC ---
Infectious Disease Note Subjective Subjective Patient is awake feeling okay son at bedside , he wants his father to be comfortable and no more testing or anything ROS ROS no n/v/d/sob Vital Sign Vital Signs Vital Signs Date Time Temp Pulse Resp B/P (MAP) Pulse Ox O2 Delivery O2 Flow Rate FiO2 09/16/20 03:00 99.0 109 18 83/42 (56) 96 Room Air 99.0 Physical Exam PHYSICAL EXAM GENERAL: CONFUSED male, not in distress distress. HEENT: Normocephalic, atraumatic. Oral mucosa moist. NECK: Supple. LUNGS: Mild crackles. HEART: S1, S2. Pacemaker without signs of complication. ABDOMEN: Soft, nontender, and nondistended. EXTREMITIES: No cyanosis bilateral lower extremity swelling present. NO Calf tenderness present left lower extremity MSK changes suggestive of DJD, pain in left knee, no effusion DERMATOLOGIC: Warm, dry. No generalized rash. NEUROLOGIC: Alert, awake, answers questions appropriately. PSYCHIATRIC: Calm and cooperative. Labs Lab Laboratory Tests Test 09/15/20 12:25 09/15/20 17:30 09/15/20 20:33 09/16/20 00:53 Glucose (Fingerstick) 137 mg/dL (70-99) 86 mg/dL (70-99) 91 mg/dL (70-99) 84 mg/dL (70-99) Test 09/16/20 05:55 09/16/20 08:35 White Blood Count 50.4 x10^3/uL (4.0-11.0) Red Blood Count 3.42 x10^6/uL (4.30-5.70) Hemoglobin 9.2 g/dL (13.0-17.5) Hematocrit 30.4 % (39.0-53.0) Mean Corpuscular Volume 89 fL (79-100) Mean Corpuscular Hemoglobin 27 pg (25-35) Mean Corpuscular Hemoglobin Concent 30 g/dL (31-37) Red Cell Distribution Width 24.8 % (11.5-14.5) Platelet Count 275 x10^3/uL (140-400) Neutrophils (%) (Auto) 92 % (31-73) Lymphocytes (%) (Auto) 3 % (24-48) Monocytes (%) (Auto) 1 % (0-9) Eosinophils (%) (Auto) 0 % (0-3) Basophils (%) (Auto) 4 % (0-3) Neutrophils # (Auto) 46.3 x10^3/uL (1.8-7.7) Lymphocytes # (Auto) 1.5 x10^3/uL (1.0-4.8) Monocytes # (Auto) 0.5 x10^3/uL (0.0-1.1) Eosinophils # (Auto) 0.2 x10^3/uL (0.0-0.7) Basophils # (Auto) 2.0 x10^3/uL (0.0-0.2) Sodium Level 142 mmol/L (136-145) Potassium Level 3.9 mmol/L (3.5-5.1) Chloride Level 106 mmol/L (98-107) Carbon Dioxide Level 17 mmol/L (21-32) Anion Gap 19 (6-14) Blood Urea Nitrogen 85 mg/dL (8-26) Creatinine 2.5 mg/dL (0.7-1.3) Estimated GFR (Cockcroft-Gault) 29.6 Glucose Level 69 mg/dL (70-99) Calcium Level 8.3 mg/dL (8.5-10.1) Glucose (Fingerstick) 86 mg/dL (70-99) Micro Microbiology 09/11/20 Blood Culture - Preliminary, Resulted NO GROWTH AFTER 1 DAY Objective Assessment Fever has improved 1. Leukocytosis, myeloproloferative disorder 2. Acute on chronic heart failure. 3. Coronary artery disease. 4. Permanent atrial fibrillation. 5. Diabetes. 6. Dysphagia. 7. Anemia and thrombocytosis. 8. Generalized debility. 9. Constipation 10.Lt knee pain ? gout 11. LLE pain US neg for DVT Plan Plan of Care pt cont to have fever, cont to have wbc worsening , d/w Oncology, he strongly feel this is myeloproliferative disorder , pt and son refuses for bone marrow biopsy despite broad coverage pt cont to have fever, likely B symptoms fro his blood disorder, cultures neg, and ct neg for any abscess or evidence for infection would change all antibiotics to po though he cannot take po/aspiration, may go to [facility] without antibiotics again d/w son, he wants his father to be comfortable d/w dr Olivarez, he is going to talk to pt's D/W RN prognosis poor need comfort care AUSTIN TIJERINA MD Sep 16, 2020 09:05
--- NOTE | 2020-09-16 09:47 | PDOC ---
DATE OF SERVICE DATE: 09/16/20 TIME: 09:46 SUBJECTIVE ROS Appearing weak this morning Sons at bedside OBJECTIVE Vital Signs Vital Signs Date Time Temp Pulse Resp B/P (MAP) Pulse Ox O2 Delivery O2 Flow Rate FiO2 09/16/20 07:00 98.8 63 18 100/56 (71) 90 Room Air 98.8 I & 0 Intake and Output 09/16/20 07:00 Intake Total 600 ml Balance 600 ml Intake Oral 100 ml IV Total 500 ml # Voids 4 PHYSICAL EXAM Physical Exam Gen NAD , HEEN OM moist, hard of hearing Neck Supple Lungs decreased bases, Non labored CV S1`s2 Abd Soft, NT Neuro grossly Normal Skin No rash No CVA OR SP tenderness, No gaytan DIAGNOSIS/ASSESSMENT Assessment & Plan DION - suspect Cardiorenal , Cr elevated in July - admitted for CHF, prior labs in [facility] records with normal baseline Cr . Worsening renal function , has been getting IV bumex bid , recommend to hold, dw RN monitor, supportive care, Urine output not recorded ,Wt has been stable Avoid nephrotoxins and overdiuresis .. Acute on chronic systolic heart failure- appears compensated Echocardiogram 2020 ejection fraction of 40%. On Bumex at home . Card managing, currently on IV Bumex HyperNatremia - resolved HypoKalemia- Normal K today Exacerbation of COPD Chest x-ray- left lower lobe pneumonia Atrial fibrillation. History of coronary artery disease. Diabetes mellitus Hypertension; controlled Leukocytosis, neutrophilic/ Thrombocytosis/ Elevated K and L, K/L - per Hem Onc high rislk of myelofibrosis . Patient is not interested in further evaluation incluiding BM Bx . subacute appearing right frontal subdural hematoma. 5 mm rightward midline shift.warfarin is being held. NS COMMENT/RELEVANT DATA Meds Current Medications Medications (Trade) Dose Ordered Sig/Rakesh Start Time Stop Time Status Last Admin Dose Admin Acetaminophen (Tylenol) 650 mg PRN Q4HRS PRN 09/03/20 21:00 09/04/20 20:59 DC Acetaminophen/ Hydrocodone Bitart (Lortab 5/325) 1 tab PRN Q6HRS PRN 09/03/20 22:15 09/14/20 18:23 1 TAB Albumin Human 100 ml @ 100 mls/hr 1X ONCE 09/15/20 22:15 09/15/20 23:14 DC 09/15/20 22:19 100 MLS/HR Albuterol Sulfate (Ventolin Neb Soln) 2.5 mg PRN Q6HRS PRN 09/12/20 08:15 Albuterol/ Ipratropium (Duoneb) 3 ml RTQID 09/04/20 08:00 09/12/20 08:01 DC 09/10/20 20:11 3 ML Ascorbic Acid (Vitamin C) 250 mg DAILY 09/04/20 09:00 09/14/20 08:48 250 MG Aspirin (Aspirin Chewable) 81 mg BID 09/04/20 09:00 09/13/20 09:28 DC 09/12/20 21:09 81 MG Atorvastatin Calcium (Lipitor) 40 mg DAILY 09/04/20 09:00 09/14/20 08:48 40 MG Bisacodyl (Dulcolax Supp) 10 mg PRN DAILY PRN 09/07/20 18:45 09/08/20 08:29 10 MG Bumetanide (Bumex) 1 mg [id number] 09/05/20 09:00 09/15/20 14:12 1 MG Dextrose 1,000 ml @ 25 mls/hr Q24H 09/11/20 19:15 09/11/20 20:29 25 MLS/HR Dextrose (Dextrose 50%-Water Syringe) 12.5 gm PRN Q15MIN PRN 09/03/20 22:15 09/12/20 20:55 12.5 GM Digoxin (Lanoxin) 125 mcg DAILY 09/04/20 09:00 09/04/20 07:47 DC Docusate Sodium (Colace) 100 mg TID 09/04/20 09:00 09/13/20 10:58 100 MG Furosemide (Lasix) 20 mg DAILY 09/11/20 09:00 UNV Haloperidol Lactate (Haldol Inj) 2 mg 1X ONCE 09/15/20 22:15 09/15/20 22:16 DC 09/15/20 22:20 2 MG Insulin Human Lispro (HumaLOG) 0-7 UNITS TIDWMEALS 09/04/20 08:00 09/04/20 12:32 4 UNITS Lactobacillus Rhamnosus (Culturelle) 1 cap BID 09/04/20 21:00 09/14/20 21:06 1 CAP Linezolid (Zyvox) 600 mg BID 09/09/20 12:00 09/15/20 09:56 DC 09/14/20 21:06 600 MG Linezolid/Dextrose 300 ml @ 300 mls/hr Q12HR 09/15/20 11:00 09/16/20 09:06 DC 09/15/20 20:17 300 MLS/HR Meropenem 500 mg/ Sodium Chloride 50 ml @ 100 mls/hr Q8HRS 09/10/20 14:00 09/16/20 09:06 DC 09/16/20 05:24 100 MLS/HR Metoprolol Tartrate (Lopressor) 100 mg DAILY 09/04/20 09:00 09/04/20 07:29 DC Micafungin Sodium 100 mg/Dextrose 100 ml @ 100 mls/hr Q24H 09/11/20 10:00 09/16/20 09:06 DC 09/15/20 10:14 100 MLS/HR Morphine Sulfate (Morphine Sulfate) 2 mg PRN Q2HR PRN 09/15/20 14:15 09/15/20 20:11 2 MG Ondansetron HCl (Zofran) 4 mg PRN Q8HRS PRN 09/03/20 21:00 09/04/20 20:59 DC Phenyleph/Shark Oil/Min Oil/Petrol (Preparation H) 1 mihaela PRN QID PRN 09/10/20 19:15 Phytonadione 10 mg/Dextrose 51 ml @ 102 mls/hr 1X ONCE 09/14/20 14:00 09/14/20 14:29 DC 09/14/20 13:56 102 MLS/HR Piperacillin Sod/ Tazobactam Sod (Zosyn Per Pharmacy) 1 each PRN DAILY PRN 09/03/20 22:15 Cancel Piperacillin Sod/ Tazobactam Sod 3.375 gm/Sodium Chloride 50 ml @ 100 mls/hr Q6HRS 09/04/20 06:00 09/10/20 11:42 DC 09/10/20 05:09 100 MLS/HR Potassium Bicarbonate (Potassium Effervescent Tablet) 40 meq 1X ONCE 09/05/20 08:00 09/05/20 08:01 DC 09/05/20 09:06 40 MEQ Potassium Chloride (Klor-Con) 20 meq 1X ONCE 09/09/20 10:00 09/09/20 10:01 DC 09/09/20 09:32 20 MEQ Prednisone (Prednisone) 40 mg 1X ONCE 09/03/20 22:15 09/03/20 22:21 DC 09/03/20 22:41 40 MG Tamsulosin HCl (Flomax) 0.4 mg QHS 09/05/20 21:00 09/14/20 21:06 0.4 MG Warfarin Sodium (Coumadin - No Dose Today) 1 each 1X WARF ONCE 09/08/20 16:00 09/08/20 16:01 Cancel Warfarin Sodium (Coumadin Per Pharmacy) 1 each PRN DAILY PRN 09/03/20 22:15 09/13/20 09:28 DC 09/13/20 09:06 1 EACH Warfarin Sodium (Coumadin) 4 mg 1X WARF ONCE 09/13/20 16:00 09/13/20 09:28 DC Lab Laboratory Tests Test 09/15/20 12:25 09/15/20 17:30 09/15/20 20:33 09/16/20 00:53 Glucose (Fingerstick) 137 mg/dL (70-99) 86 mg/dL (70-99) 91 mg/dL (70-99) 84 mg/dL (70-99) Test 09/16/20 05:55 09/16/20 08:35 White Blood Count 50.4 x10^3/uL (4.0-11.0) Red Blood Count 3.42 x10^6/uL (4.30-5.70) Hemoglobin 9.2 g/dL (13.0-17.5) Hematocrit 30.4 % (39.0-53.0) Mean Corpuscular Volume 89 fL (79-100) Mean Corpuscular Hemoglobin 27 pg (25-35) Mean Corpuscular Hemoglobin Concent 30 g/dL (31-37) Red Cell Distribution Width 24.8 % (11.5-14.5) Platelet Count 275 x10^3/uL (140-400) Neutrophils (%) (Auto) 92 % (31-73) Lymphocytes (%) (Auto) 3 % (24-48) Monocytes (%) (Auto) 1 % (0-9) Eosinophils (%) (Auto) 0 % (0-3) Basophils (%) (Auto) 4 % (0-3) Neutrophils # (Auto) 46.3 x10^3/uL (1.8-7.7) Lymphocytes # (Auto) 1.5 x10^3/uL (1.0-4.8) Monocytes # (Auto) 0.5 x10^3/uL (0.0-1.1) Eosinophils # (Auto) 0.2 x10^3/uL (0.0-0.7) Basophils # (Auto) 2.0 x10^3/uL (0.0-0.2) Sodium Level 142 mmol/L (136-145) Potassium Level 3.9 mmol/L (3.5-5.1) Chloride Level 106 mmol/L (98-107) Carbon Dioxide Level 17 mmol/L (21-32) Anion Gap 19 (6-14) Blood Urea Nitrogen 85 mg/dL (8-26) Creatinine 2.5 mg/dL (0.7-1.3) Estimated GFR (Cockcroft-Gault) 29.6 Glucose Level 69 mg/dL (70-99) Calcium Level 8.3 mg/dL (8.5-10.1) Glucose (Fingerstick) 86 mg/dL (70-99) Results All relevant outside records, renal labs, imaging studies, telemetry/EKG's were reviewed. Justicifation of Admission Dx: Justifications for Admission: Justification of Admission Dx: Yes DEXTER ULLOA MD Sep 16, 2020 09:47
--- NOTE | 2020-09-16 09:53 | PDOC ---
PULMONARY PROGRESS NOTES DATE: 09/16/20 TIME: 09:53 Subjective Remains on room air No SOA or Cough low grade fever overnight Vitals Vital Signs Date Time Temp Pulse Resp B/P (MAP) Pulse Ox O2 Delivery O2 Flow Rate FiO2 09/16/20 07:00 98.8 63 18 100/56 (71) 90 Room Air 98.8 ROS: No Nausea, No Chest Pain, No Abdominal Pain, No Increase Cough General: Alert, No acute distress Lungs: Crackles (bases ) Cardiovascular: S1, S2 Abdomen: Soft, Non-tender Neuro Exam: Alert, Oriented Extremities: Other (edema) Skin: Warm, Dry Labs Laboratory Tests Test 09/14/20 12:28 09/14/20 17:38 09/14/20 20:45 09/15/20 07:10 Glucose (Fingerstick) 126 mg/dL (70-99) 102 mg/dL (70-99) 124 mg/dL (70-99) White Blood Count 49.4 x10^3/uL (4.0-11.0) Red Blood Count 3.54 x10^6/uL (4.30-5.70) Hemoglobin 9.8 g/dL (13.0-17.5) Hematocrit 33.0 % (39.0-53.0) Mean Corpuscular Volume 93 fL (79-100) Mean Corpuscular Hemoglobin 28 pg (25-35) Mean Corpuscular Hemoglobin Concent 30 g/dL (31-37) Red Cell Distribution Width 24.7 % (11.5-14.5) Platelet Count 193 x10^3/uL (140-400) Neutrophils (%) (Auto) 96 % (31-73) Lymphocytes (%) (Auto) 3 % (24-48) Monocytes (%) (Auto) 2 % (0-9) Eosinophils (%) (Auto) 0 % (0-3) Basophils (%) (Auto) 0 % (0-3) Neutrophils # (Auto) 47.3 x10^3/uL (1.8-7.7) Lymphocytes # (Auto) 1.3 x10^3/uL (1.0-4.8) Monocytes # (Auto) 0.8 x10^3/uL (0.0-1.1) Eosinophils # (Auto) 0.1 x10^3/uL (0.0-0.7) Basophils # (Auto) 0.0 x10^3/uL (0.0-0.2) Prothrombin Time 19.6 SEC (11.7-14.0) Prothromb Time International Ratio 1.7 (0.8-1.1) Sodium Level 141 mmol/L (136-145) Potassium Level 4.1 mmol/L (3.5-5.1) Chloride Level 105 mmol/L (98-107) Carbon Dioxide Level 18 mmol/L (21-32) Anion Gap 18 (6-14) Blood Urea Nitrogen 74 mg/dL (8-26) Creatinine 2.0 mg/dL (0.7-1.3) Estimated GFR (Cockcroft-Gault) 38.3 Glucose Level 92 mg/dL (70-99) Calcium Level 8.0 mg/dL (8.5-10.1) Test 09/15/20 08:04 09/15/20 12:25 09/15/20 17:30 09/15/20 20:33 Glucose (Fingerstick) 89 mg/dL (70-99) 137 mg/dL (70-99) 86 mg/dL (70-99) 91 mg/dL (70-99) Test 09/16/20 00:53 09/16/20 05:55 09/16/20 08:35 Glucose (Fingerstick) 84 mg/dL (70-99) 86 mg/dL (70-99) White Blood Count 50.4 x10^3/uL (4.0-11.0) Red Blood Count 3.42 x10^6/uL (4.30-5.70) Hemoglobin 9.2 g/dL (13.0-17.5) Hematocrit 30.4 % (39.0-53.0) Mean Corpuscular Volume 89 fL (79-100) Mean Corpuscular Hemoglobin 27 pg (25-35) Mean Corpuscular Hemoglobin Concent 30 g/dL (31-37) Red Cell Distribution Width 24.8 % (11.5-14.5) Platelet Count 275 x10^3/uL (140-400) Neutrophils (%) (Auto) 92 % (31-73) Lymphocytes (%) (Auto) 3 % (24-48) Monocytes (%) (Auto) 1 % (0-9) Eosinophils (%) (Auto) 0 % (0-3) Basophils (%) (Auto) 4 % (0-3) Neutrophils # (Auto) 46.3 x10^3/uL (1.8-7.7) Lymphocytes # (Auto) 1.5 x10^3/uL (1.0-4.8) Monocytes # (Auto) 0.5 x10^3/uL (0.0-1.1) Eosinophils # (Auto) 0.2 x10^3/uL (0.0-0.7) Basophils # (Auto) 2.0 x10^3/uL (0.0-0.2) Sodium Level 142 mmol/L (136-145) Potassium Level 3.9 mmol/L (3.5-5.1) Chloride Level 106 mmol/L (98-107) Carbon Dioxide Level 17 mmol/L (21-32) Anion Gap 19 (6-14) Blood Urea Nitrogen 85 mg/dL (8-26) Creatinine 2.5 mg/dL (0.7-1.3) Estimated GFR (Cockcroft-Gault) 29.6 Glucose Level 69 mg/dL (70-99) Calcium Level 8.3 mg/dL (8.5-10.1) Laboratory Tests Test 09/15/20 12:25 09/15/20 17:30 09/15/20 20:33 09/16/20 00:53 Glucose (Fingerstick) 137 mg/dL (70-99) 86 mg/dL (70-99) 91 mg/dL (70-99) 84 mg/dL (70-99) Test 09/16/20 05:55 09/16/20 08:35 White Blood Count 50.4 x10^3/uL (4.0-11.0) Red Blood Count 3.42 x10^6/uL (4.30-5.70) Hemoglobin 9.2 g/dL (13.0-17.5) Hematocrit 30.4 % (39.0-53.0) Mean Corpuscular Volume 89 fL (79-100) Mean Corpuscular Hemoglobin 27 pg (25-35) Mean Corpuscular Hemoglobin Concent 30 g/dL (31-37) Red Cell Distribution Width 24.8 % (11.5-14.5) Platelet Count 275 x10^3/uL (140-400) Neutrophils (%) (Auto) 92 % (31-73) Lymphocytes (%) (Auto) 3 % (24-48) Monocytes (%) (Auto) 1 % (0-9) Eosinophils (%) (Auto) 0 % (0-3) Basophils (%) (Auto) 4 % (0-3) Neutrophils # (Auto) 46.3 x10^3/uL (1.8-7.7) Lymphocytes # (Auto) 1.5 x10^3/uL (1.0-4.8) Monocytes # (Auto) 0.5 x10^3/uL (0.0-1.1) Eosinophils # (Auto) 0.2 x10^3/uL (0.0-0.7) Basophils # (Auto) 2.0 x10^3/uL (0.0-0.2) Sodium Level 142 mmol/L (136-145) Potassium Level 3.9 mmol/L (3.5-5.1) Chloride Level 106 mmol/L (98-107) Carbon Dioxide Level 17 mmol/L (21-32) Anion Gap 19 (6-14) Blood Urea Nitrogen 85 mg/dL (8-26) Creatinine 2.5 mg/dL (0.7-1.3) Estimated GFR (Cockcroft-Gault) 29.6 Glucose Level 69 mg/dL (70-99) Calcium Level 8.3 mg/dL (8.5-10.1) Glucose (Fingerstick) 86 mg/dL (70-99) Medications Active Scripts Medications Dose Route/Sig Max Daily Dose Days Date Category Dose Instructions Bumetanide 1 Mg Tablet 1 Mg PO BID 07/28/20 Reported [place] 5-325 Tablet (Acetaminophen/Hydrocodone Bitart) 1 Each Tablet 7.5 Mg PO PRN Q6HRS PRN 6 09/20/18 Rx LAST DOSE GIVEN: Colace (Docusate Sodium) 100 Mg Capsule 1 Cap PO TID 09/09/18 Reported Metamucil Powder (Psyllium Seed (with Sugar)) 575 Gm Powder 575 Gm PO DAILY 09/09/18 Reported Atorvastatin Calcium 40 Mg Tablet 1 Tab PO DAILY 08/12/18 Reported Metoprolol Tartrate 100 Mg Tablet 100 Mg PO DAILY 11/08/17 Reported Tamsulosin Hcl 0.4 Mg Cap.er.24h 0.4 Mg PO HS DAILY 11/08/17 Reported Vitamin C (Ascorbic Acid) 500 Mg Tablet 250 Mg PO DAILY 05/08/14 Reported Warfarin Sodium 5 Mg Tablet 1.5 Tab PO QWE 04/18/14 Reported Warfarin Sodium 5 Mg Tablet 1 Tab PO DAILY EXCEPT WED. 04/18/14 Reported Aspirin 81 Mg Tab.chew 81 Mg PO BID 08/22/13 Reported Lanoxin (Digoxin) 125 Mcg Tablet 125 Mcg PO DAILY 08/22/13 Reported Comments 09/11 cxr reviewed 1. Left lower lobe infiltrate superimposed on chronic interstitial changes. 2. Stable small pleural effusions. 3. Cardiomegaly and left greater than right hilar enlargement likely due to pulmonary artery hypertension. ct of abd pelvis chest 1. Enlarged ascending thoracic aorta measuring 4.5 cm. 2. Moderate cardiomegaly. 3. Increased, small pleural effusions and bibasilar atelectasis. Mild emphysema. Chronic appearing interstitial changes or scarring in the lung bases, unchanged. 4. Mild hepatosplenomegaly. 5. Trace ascites. Impression . IMPRESSION: 1. Dyspnea secondary to acute systolic and diastolic congestive heart failure--improving on room air 2. Abnormal chest x-ray. 3. 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 4. Cardiomyopathy. 5. 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 6. Obstructive sleep apnea-hypopnea syndrome, CPAP noncompliant. 7. Paroxysmal atrial fibrillation, on Coumadin. 8. Acute kidney injury/chronic kidney disease. 9. leukocytosis --worsening --ID following 10. Chronic SDH-- neuro SX. following Plan . RECOMMENDATIONS: Pt. is stable from respiratory stand point Titrate FiO2 to keep O2 saturation 90%, on room air Follow ID recs-- for ABX CT of chest reviewed, Increased, but small pleural effusions (not amenable to thoracentesis) and bibasilar atelectasis. Mild emphysema. Chronic appearing interstitial changes or scarring in the lung bases, unchanged. Follow Oncology recs-- myelofibrosis is the leading differential diagnosis-- pt. doesn't want further work up-- recommending hospice Follow cardiology recs----Echocardiogram 2020 ejection fraction of 40% Follow nephrology recs - monitor renal function Coumadin on HOLD Neuro surgery following -- SDH PT/OT/ST-- failed swallow study now npo--nutritional support DVT/GI PPX D/W RN Pt. is DNR we will see PRN please call with questions or concerns BREN CARDOZO MD Sep 16, 2020 09:53
[2020-09-16 11:00] VITALS: BP 99/53
[2020-09-16] MEDS: DEXTROSE 50% 25 GM / 50ML DISP.SYRIN. IV PRN (12:34)
[2020-09-16] MEDS: IV DEXTROSE 5% - 0.9 % NACL 1,000 ML IV SCH (12:35)
--- NOTE | 2020-09-16 13:39 | PDOC ---
PROGRESS NOTES Date of Service DATE: 09/16/20 TIME: 13:37 Assessment Problems Medical Problems: (1) CHF (congestive heart failure) Status: Acute Chronic right subdural hematoma Dementia, metabolic encephalopathy Failed swallow test Multiple medical problems: pneumonia, heart failure, leukocytosis, questionable etiology, coronary artery disease, atrial fibrillation, anemia and thrombocytosis, on top of his diabetes and COPD Note normal B12 and TSH Plan Medical treatment of subdural, holding anticoagulation and antiplatelet agents. Treat medical issues Discussed with patient's son, family considering hospice care and not placing a PEG tube, possibly placing IV for nutrition Follow up with me in 2 months, will repeat CT then; neurosurgery requesting a follow-up head CT in 1 week Subjective None Objective Vital Signs Date Time Temp Pulse Resp B/P (MAP) Pulse Ox O2 Delivery O2 Flow Rate FiO2 09/16/20 11:00 99.5 107 18 99/53 (68) 94 Room Air 99.5 Intake and Output 09/16/20 07:00 Intake Total 600 ml Balance 600 ml Intake Oral 100 ml IV Total 500 ml # Voids 4 PHYSICAL EXAM Alert, does not know date or location, does tell me his name PERRL. EOMI. CN: no focal findings. Muscle tone: normal. Muscle strength: 4/5 DTR: 1+ Plantar reflex: Flexor Gait: not examined in bed. Sensory exam: no abnormal findings. No cerebellar signs elicited. Review of Relevant I have reviewed the following items tiffany (where applicable) has been applied. Labs Laboratory Tests Test 09/14/20 17:38 09/14/20 20:45 09/15/20 07:10 09/15/20 08:04 Glucose (Fingerstick) 102 mg/dL (70-99) 124 mg/dL (70-99) 89 mg/dL (70-99) White Blood Count 49.4 x10^3/uL (4.0-11.0) Red Blood Count 3.54 x10^6/uL (4.30-5.70) Hemoglobin 9.8 g/dL (13.0-17.5) Hematocrit 33.0 % (39.0-53.0) Mean Corpuscular Volume 93 fL (79-100) Mean Corpuscular Hemoglobin 28 pg (25-35) Mean Corpuscular Hemoglobin Concent 30 g/dL (31-37) Red Cell Distribution Width 24.7 % (11.5-14.5) Platelet Count 193 x10^3/uL (140-400) Neutrophils (%) (Auto) 96 % (31-73) Lymphocytes (%) (Auto) 3 % (24-48) Monocytes (%) (Auto) 2 % (0-9) Eosinophils (%) (Auto) 0 % (0-3) Basophils (%) (Auto) 0 % (0-3) Neutrophils # (Auto) 47.3 x10^3/uL (1.8-7.7) Lymphocytes # (Auto) 1.3 x10^3/uL (1.0-4.8) Monocytes # (Auto) 0.8 x10^3/uL (0.0-1.1) Eosinophils # (Auto) 0.1 x10^3/uL (0.0-0.7) Basophils # (Auto) 0.0 x10^3/uL (0.0-0.2) Prothrombin Time 19.6 SEC (11.7-14.0) Prothromb Time International Ratio 1.7 (0.8-1.1) Sodium Level 141 mmol/L (136-145) Potassium Level 4.1 mmol/L (3.5-5.1) Chloride Level 105 mmol/L (98-107) Carbon Dioxide Level 18 mmol/L (21-32) Anion Gap 18 (6-14) Blood Urea Nitrogen 74 mg/dL (8-26) Creatinine 2.0 mg/dL (0.7-1.3) Estimated GFR (Cockcroft-Gault) 38.3 Glucose Level 92 mg/dL (70-99) Calcium Level 8.0 mg/dL (8.5-10.1) Test 09/15/20 12:25 09/15/20 17:30 09/15/20 20:33 09/16/20 00:53 Glucose (Fingerstick) 137 mg/dL (70-99) 86 mg/dL (70-99) 91 mg/dL (70-99) 84 mg/dL (70-99) Test 09/16/20 05:55 09/16/20 08:35 09/16/20 12:20 09/16/20 13:07 White Blood Count 50.4 x10^3/uL (4.0-11.0) Red Blood Count 3.42 x10^6/uL (4.30-5.70) Hemoglobin 9.2 g/dL (13.0-17.5) Hematocrit 30.4 % (39.0-53.0) Mean Corpuscular Volume 89 fL (79-100) Mean Corpuscular Hemoglobin 27 pg (25-35) Mean Corpuscular Hemoglobin Concent 30 g/dL (31-37) Red Cell Distribution Width 24.8 % (11.5-14.5) Platelet Count 275 x10^3/uL (140-400) Neutrophils (%) (Auto) 92 % (31-73) Lymphocytes (%) (Auto) 3 % (24-48) Monocytes (%) (Auto) 1 % (0-9) Eosinophils (%) (Auto) 0 % (0-3) Basophils (%) (Auto) 4 % (0-3) Neutrophils # (Auto) 46.3 x10^3/uL (1.8-7.7) Lymphocytes # (Auto) 1.5 x10^3/uL (1.0-4.8) Monocytes # (Auto) 0.5 x10^3/uL (0.0-1.1) Eosinophils # (Auto) 0.2 x10^3/uL (0.0-0.7) Basophils # (Auto) 2.0 x10^3/uL (0.0-0.2) Sodium Level 142 mmol/L (136-145) Potassium Level 3.9 mmol/L (3.5-5.1) Chloride Level 106 mmol/L (98-107) Carbon Dioxide Level 17 mmol/L (21-32) Anion Gap 19 (6-14) Blood Urea Nitrogen 85 mg/dL (8-26) Creatinine 2.5 mg/dL (0.7-1.3) Estimated GFR (Cockcroft-Gault) 29.6 Glucose Level 69 mg/dL (70-99) Calcium Level 8.3 mg/dL (8.5-10.1) Glucose (Fingerstick) 86 mg/dL (70-99) 57 mg/dL (70-99) 90 mg/dL (70-99) Laboratory Tests Test 09/15/20 17:30 09/15/20 20:33 09/16/20 00:53 09/16/20 05:55 Glucose (Fingerstick) 86 mg/dL (70-99) 91 mg/dL (70-99) 84 mg/dL (70-99) White Blood Count 50.4 x10^3/uL (4.0-11.0) Red Blood Count 3.42 x10^6/uL (4.30-5.70) Hemoglobin 9.2 g/dL (13.0-17.5) Hematocrit 30.4 % (39.0-53.0) Mean Corpuscular Volume 89 fL (79-100) Mean Corpuscular Hemoglobin 27 pg (25-35) Mean Corpuscular Hemoglobin Concent 30 g/dL (31-37) Red Cell Distribution Width 24.8 % (11.5-14.5) Platelet Count 275 x10^3/uL (140-400) Neutrophils (%) (Auto) 92 % (31-73) Lymphocytes (%) (Auto) 3 % (24-48) Monocytes (%) (Auto) 1 % (0-9) Eosinophils (%) (Auto) 0 % (0-3) Basophils (%) (Auto) 4 % (0-3) Neutrophils # (Auto) 46.3 x10^3/uL (1.8-7.7) Lymphocytes # (Auto) 1.5 x10^3/uL (1.0-4.8) Monocytes # (Auto) 0.5 x10^3/uL (0.0-1.1) Eosinophils # (Auto) 0.2 x10^3/uL (0.0-0.7) Basophils # (Auto) 2.0 x10^3/uL (0.0-0.2) Sodium Level 142 mmol/L (136-145) Potassium Level 3.9 mmol/L (3.5-5.1) Chloride Level 106 mmol/L (98-107) Carbon Dioxide Level 17 mmol/L (21-32) Anion Gap 19 (6-14) Blood Urea Nitrogen 85 mg/dL (8-26) Creatinine 2.5 mg/dL (0.7-1.3) Estimated GFR (Cockcroft-Gault) 29.6 Glucose Level 69 mg/dL (70-99) Calcium Level 8.3 mg/dL (8.5-10.1) Test 09/16/20 08:35 09/16/20 12:20 09/16/20 13:07 Glucose (Fingerstick) 86 mg/dL (70-99) 57 mg/dL (70-99) 90 mg/dL (70-99) Microbiology 09/11/20 Blood Culture - Final, Complete NO GROWTH AFTER 5 DAYS Medications Current Medications Furosemide (Lasix) 40 mg 1X ONCE IVP Last administered on 09/03/20at 21:07; Start 09/03/20 at 21:00; Stop 09/03/20 at 21:01; Status DC Piperacillin Sod/ Tazobactam Sod 3.375 gm/Sodium Chloride 50 ml @ 100 mls/hr 1X ONCE IV Last administered on 09/03/20at 21:08; Start 09/03/20 at 21:00; Stop 09/03/20 at 21:29; Status DC Ondansetron HCl (Zofran) 4 mg PRN Q8HRS PRN IV NAUSEA/VOMITING; Start 09/03/20 at 21:00; Stop 09/04/20 at 20:59; Status DC Morphine Sulfate (Morphine Sulfate) 2 mg PRN Q2HR PRN IV PAIN; Start 09/03/20 at 21:00; Stop 09/04/20 at 20:59; Status DC Acetaminophen (Tylenol) 650 mg PRN Q4HRS PRN PO FEVER > 100.3'F; Start 09/03/20 at 21:00; Stop 09/04/20 at 20:59; Status DC Ascorbic Acid (Vitamin C) 250 mg DAILY PO Last administered on 09/14/20at 08:48; Start 09/04/20 at 09:00 Aspirin (Aspirin Chewable) 81 mg BID PO Last administered on 09/12/20at 21:09; Start 09/04/20 at 09:00; Stop 09/13/20 at 09:28; Status DC Atorvastatin Calcium (Lipitor) 40 mg DAILY PO Last administered on 09/14/20at 08:48; Start 09/04/20 at 09:00 Bumetanide (Bumex) 1 mg BID92 PO ; Start 09/04/20 at 09:00; Stop 09/04/20 at 07:53; Status DC Digoxin (Lanoxin) 125 mcg DAILY PO ; Start 09/04/20 at 09:00; Stop 09/04/20 at 07:47; Status DC Docusate Sodium (Colace) 100 mg TID PO Last administered on 09/13/20at 10:58; Start 09/04/20 at 09:00 Acetaminophen/ Hydrocodone Bitart (Lortab 5/325) 1 tab PRN Q6HRS PRN PO PAIN Last administered on 09/14/20at 18:23; Start 09/03/20 at 22:15 Metoprolol Tartrate (Lopressor) 100 mg DAILY PO ; Start 09/04/20 at 09:00; Stop 09/04/20 at 07:29; Status DC Warfarin Sodium (Coumadin Per Pharmacy) 1 each PRN DAILY PRN MC SEE COMMENTS Last administered on 09/13/20at 09:06; Start 09/03/20 at 22:15; Stop 09/13/20 at 09:28; Status DC Piperacillin Sod/ Tazobactam Sod (Zosyn Per Pharmacy) 1 each PRN DAILY PRN MC SEE COMMENTS; Start 09/03/20 at 22:15; Status Cancel Albuterol/ Ipratropium (Duoneb) 3 ml RTQID NEB Last administered on 09/10/20at 20:11; Start 09/04/20 at 08:00; Stop 09/12/20 at 08:01; Status DC Prednisone (Prednisone) 40 mg 1X ONCE PO Last administered on 09/03/20at 22:41; Start 09/03/20 at 22:15; Stop 09/03/20 at 22:21; Status DC Insulin Human Lispro (HumaLOG) 0-7 UNITS TIDWMEALS SQ Last administered on 09/04/20at 12:32; Start 09/04/20 at 08:00 Dextrose (Dextrose 50%-Water Syringe) 12.5 gm PRN Q15MIN PRN IV SEE COMMENTS Last administered on 09/16/20at 12:34; Start 09/03/20 at 22:15 Piperacillin Sod/ Tazobactam Sod 3.375 gm/Sodium Chloride 50 ml @ 100 mls/hr Q6HRS IV Last administered on 09/10/20at 05:09; Start 09/04/20 at 06:00; Stop 09/10/20 at 11:42; Status DC Warfarin Sodium (Coumadin - No Dose Today) 1 each 1X WARF ONCE MC Last administered on 09/04/20at 16:00; Start 09/04/20 at 16:00; Stop 09/04/20 at 16:01; Status DC Bumetanide (Bumex) 2.5 mg BID92 IV Last administered on 09/04/20at 15:23; Start 09/04/20 at 09:00; Stop 09/05/20 at 07:46; Status DC Lactobacillus Rhamnosus (Culturelle) 1 cap BID PO Last administered on 09/14/20at 21:06; Start 09/04/20 at 21:00 Tamsulosin HCl (Flomax) 0.4 mg QHS PO Last administered on 09/14/20 21:06; Start 09/05/20 at 21:00 Bumetanide (Bumex) 1 mg BID92 IV Last administered on 09/15/20at 14:12; Start 09/05/20 at 09:00 Potassium Bicarbonate (Potassium Effervescent Tablet) 40 meq 1X ONCE PO Last administered on 09/05/20at 09:06; Start 09/05/20 at 08:00; Stop 09/05/20 at 08:01; Status DC Warfarin Sodium (Coumadin - No Dose Today) 1 each 1X WARF ONCE MC Last administered on 09/05/20at 15:58; Start 09/05/20 at 16:00; Stop 09/05/20 at 16:01; Status DC Warfarin Sodium (Coumadin - No Dose Today) 1 each 1X WARF ONCE MC Last administered on 09/06/20at 16:00; Start 09/06/20 at 16:00; Stop 09/06/20 at 16:01; Status DC Warfarin Sodium (Coumadin - No Dose Today) 1 each 1X WARF ONCE MC ; Start 09/07/20 at 16:00; Stop 09/07/20 at 16:01; Status DC Bisacodyl (Dulcolax Supp) 10 mg 1X ONCE ND ; Start 09/07/20 at 13:00; Stop 09/07/20 at 18:32; Status DC Bisacodyl (Dulcolax Supp) 10 mg PRN DAILY PRN ND CONSTIPATION Last administered on 09/08/20at 08:29; Start 09/07/20 at 18:45 Warfarin Sodium (Coumadin - No Dose Today) 1 each 1X WARF ONCE MC ; Start 09/08/20 at 16:00; Stop 09/08/20 at 16:01; Status Cancel Warfarin Sodium (Coumadin) 4 mg 1X WARF ONCE PO Last administered on 09/08/20at 17:29; Start 09/08/20 at 16:00; Stop 09/08/20 at 16:01; Status DC Warfarin Sodium (Coumadin) 4 mg 1X WARF ONCE PO Last administered on 09/09/20at 16:53; Start 09/09/20 at 16:00; Stop 09/09/20 at 16:01; Status DC Potassium Chloride (Klor-Con) 20 meq 1X ONCE PO Last administered on 09/09/20at 09:32; Start 09/09/20 at 10:00; Stop 09/09/20 at 10:01; Status DC Linezolid (Zyvox) 600 mg BID PO Last administered on 09/14/20at 21:06; Start 09/09/20 at 12:00; Stop 09/15/20 at 09:56; Status DC Warfarin Sodium (Coumadin) 4 mg 1X WARF ONCE PO Last administered on 09/10/20at 16:47; Start 09/10/20 at 16:00; Stop 09/10/20 at 16:01; Status DC Meropenem 500 mg/ Sodium Chloride 50 ml @ 100 mls/hr Q8HRS IV Last administered on 09/16/20at 05:24; Start 09/10/20 at 14:00; Stop 09/16/20 at 09:06; Status DC Furosemide (Lasix) 20 mg DAILY IVP ; Start 09/11/20 at 09:00; Status UNV Phenyleph/Shark Oil/Min Oil/Petrol (Preparation H) 1 mihaela PRN QID PRN RC RECTAL PAIN; Start 09/10/20 at 19:15 Micafungin Sodium 100 mg/Dextrose 100 ml @ 100 mls/hr Q24H IV Last administered on 09/15/20at 10:14; Start 09/11/20 at 10:00; Stop 09/16/20 at 09:06; Status DC Warfarin Sodium (Coumadin) 4 mg 1X WARF ONCE PO ; Start 09/11/20 at 16:00; Stop 09/11/20 at 16:01; Status DC Dextrose 1,000 ml @ 25 mls/hr Q24H IV Last administered on 09/11/20at 20:29; Start 09/11/20 at 19:15 Warfarin Sodium (Coumadin) 3 mg 1X WARF ONCE PO ; Start 09/12/20 at 16:00; Stop 09/13/20 at 09:28; Status DC Albuterol Sulfate (Ventolin Neb Soln) 2.5 mg PRN Q6HRS PRN NEB SHORTNESS OF BREATH; Start 09/12/20 at 08:15 Warfarin Sodium (Coumadin) 4 mg 1X WARF ONCE PO ; Start 09/13/20 at 16:00; Stop 09/13/20 at 09:28; Status DC Phytonadione 10 mg/Dextrose 51 ml @ 102 mls/hr 1X ONCE IV Last administered on 09/14/20at 13:56; Start 09/14/20 at 14:00; Stop 09/14/20 at 14:29; Status DC Linezolid/Dextrose 300 ml @ 300 mls/hr Q12HR IV Last administered on 09/15/20at 20:17; Start 09/15/20 at 11:00; Stop 09/16/20 at 09:06; Status DC Morphine Sulfate (Morphine Sulfate) 2 mg PRN Q4HRS PRN IV PAIN Last administered on 09/15/20at 11:37; Start 09/15/20 at 11:30; Stop 09/15/20 at 14:01; Status DC Morphine Sulfate (Morphine Sulfate) 2 mg PRN Q2HR PRN IV PAIN Last administered on 09/15/20at 20:11; Start 09/15/20 at 14:15 Albumin Human 100 ml @ 100 mls/hr 1X ONCE IV Last administered on 09/15/20at 22:19; Start 09/15/20 at 22:15; Stop 09/15/20 at 23:14; Status DC Haloperidol Lactate (Haldol Inj) 2 mg 1X ONCE IVP Last administered on 09/15/20at 22:20; Start 09/15/20 at 22:15; Stop 09/15/20 at 22:16; Status DC Dextrose/Sodium Chloride 1,000 ml @ 50 mls/hr Q20H IV Last administered on 09/16/20at 12:35; Start 09/16/20 at 12:30 Active Scripts Active Burney 5-325 Tablet (Acetaminophen/Hydrocodone Bitart) 1 Each Tablet 7.5 Mg PO PRN Q6HRS PRN 6 Days LAST DOSE GIVEN: Reported Warfarin Sodium 2 Mg Tablet 4 Mg PO Warfarin Sodium 2 Mg Tablet 6 Mg PO QMTH Bumetanide 1 Mg Tablet 1 Mg PO BID Colace (Docusate Sodium) 100 Mg Capsule 1 Cap PO TID Metamucil Powder (Psyllium Seed (with Sugar)) 575 Gm Powder 575 Gm PO DAILY Atorvastatin Calcium 40 Mg Tablet 1 Tab PO DAILY Metoprolol Tartrate 100 Mg Tablet 100 Mg PO DAILY Tamsulosin Hcl 0.4 Mg Cap.er.24h 0.4 Mg PO HS DAILY Vitamin C (Ascorbic Acid) 500 Mg Tablet 250 Mg PO DAILY Aspirin 81 Mg Tab.chew 81 Mg PO BID Lanoxin (Digoxin) 125 Mcg Tablet 125 Mcg PO DAILY Vitals/I & O Vital Sign - Last 24 Hours 09/15/20 09/15/20 09/15/20 09/15/20 14:13 14:43 15:00 17:19 Temp 99.3 99.3 Pulse 99 Resp 18 B/P (MAP) 100/47 (64) Pulse Ox 98 97 90 97 O2 Delivery Room Air Room Air Room Air Room Air 09/15/20 09/15/20 09/15/20 09/15/20 17:49 19:00 20:00 20:11 Temp 97.9 97.9 Pulse 105 Resp 21 16 B/P (MAP) 75/39 (51) Pulse Ox 97 99 97 O2 Delivery Room Air Room Air Room Air Room Air 09/15/20 09/15/20 09/16/20 09/16/20 20:41 23:00 03:00 07:00 Temp 101.1 99.0 98.8 101.1 99.0 98.8 Pulse 92 109 63 Resp 18 20 18 18 B/P (MAP) 79/40 (53) 83/42 (56) 100/56 (71) Pulse Ox 97 98 96 90 O2 Delivery Room Air Room Air Room Air Room Air 09/16/20 09/16/20 08:00 11:00 Temp 99.5 99.5 Pulse 107 Resp 18 B/P (MAP) 99/53 (68) Pulse Ox 94 O2 Delivery Room Air Room Air Intake and Output 09/15/20 09/15/20 09/16/20 15:00 23:00 07:00 Intake Total 100 ml 400 ml 100 ml Balance 100 ml 400 ml 100 ml Justicifation of Admission Dx: Justifications for Admission: Justification of Admission Dx: Yes LEENA BRICE MD Sep 16, 2020 13:39
--- NOTE | 2020-09-16 14:41 | PDOC ---
[facility] PROGRESS NOTE Date of Service DOS: DATE: 09/16/20 TIME: 14:34 Chief Complaint Chief Complaint impression Acute on chronic combined systolic and diastolic heart failure. We will diurese with intravenous Bumex. 2D echo in September 2019 showed LVEF 40%. Coronary artery disease: Patient has known chronic total occlusion of LAD with collaterals, presently stable and chest pain-free. Lexiscan nuclear stress test in March 2020 showed large inferior infarct without any significant ischemia. Continue current secondary prevention measures. Sick sinus syndrome s/p permanent pacemaker implantation with more recent generator change. Recent device check showed normal function. He denied any syncope or near syncope. Permanent atrial fibrillation: Telemetry showed demand pacing. Patient on warfarin for stroke prophylaxis. Check PT/INR. Hypertension - Controlled. Will back off on his BB. He is actually on 100mg metoprolol tartrate Hyperlipidemia - Continue statin Diabetes mellitus type 2 - diet controlled, A1c previously 5.8 Severe Protein calorie malnutrition - severe given his edema and albumin. 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 Normal LV systolic function. EF 60% plan FEN - Cardiac ADA diet PPX - warfarin CODE - FULL Dispo - inpatient CVC for CHF exacerbation Hyperlipidemia - Continue statin Diabetes mellitus type 2 - diet controlled, A1c previously 5.8 Severe Protein calorie malnutrition - severe given his edema and albumin. tician to see D/W RN Defer to pulmonology regarding management of acute hypoxic respiratory failure and antibiotics ONCOLOGY plan on seeing patient in follow-up as outpatient to reassess CBC and discussed results of BCR ABL FISH and JAK2 mutation testing ID CONSULT 37 min pt exam, chart review, > 50% of time spent with exam, chart review, pt care coordination Worsening interstitial changes throughout both lungs, with worsening perihilar consolidation. Findings may reflect progressive interstitial pulmonary edema or infection. CXR 6- Continue Merrem ( 09/10) and Zyvox,was on zosyn CONTINUE micafungin History of Present Illness History of Present Illness Mr Rivero is an 89yo M w/ PMHx DM2, HLD, HTN, afib, SSS s/p PPM, CAD, chronic systolic CHF who presented to ED c/o for weakness and dyspnea. Also complains of dyspnea worsening over weeks, with a few days of noted LE edema is worse with cough in the morning that is productive of white sputum. he has cough at times, He denied any chest pain, palpitations or syncope. Given 1 dose iv lasix in ED 40mg, < 500 uop after, still feeling short of breath. He follows with Dr. Santoyo and has been recently changed to Bumex last month. Chest radiograph with interstitial edema. Labs with WBC 27.3, Hb 10.3, platelets 454, NA 145, K4.7, BUN 58, CR 2.1, INR 3.2 TSH 5.5, digoxin level 2.2, albumin 2.7, bilirubin 2.2, AST 56 ALT 12 alkaline phosphatase 138 NT proBNP 31,348 Admitted for further treatment. 09/04: Afebrile. WBC still high. Reasonably good urine output. A little confused Febrile. 1.3 L urine output. Still with very swollen lower extremities. No chest pain little bit short of breath. Not on O2 today. 09-06 Still with very swollen lower extremities. No chest pain little bit short of breath. Acute on chronic combined systolic and diastolic heart failure. We will diurese with intravenous Bumex. 2D echo in September 2019 showed LVEF 40%. Coronary artery disease: Patient has known chronic total occlusion of LAD with collaterals, presently stable and chest pain-free. Lexiscan nuclear stress test in March 2020 showed large inferior infarct without any significant ischemia. Continue current secondary prevention measures. Sick sinus syndrome s/p permanent pacemaker implantation with more recent generator change. Recent device check showed normal function. He denied any syncope or near syncope. Permanent atrial fibrillation: Telemetry showed demand pacing. Patient on warfarin for stroke prophylaxis. Check PT/INR. Hypertension - Controlled. Will back off on his BB. He is actually on 100mg metoprolol tartrate Hyperlipidemia - Continue statin Diabetes mellitus type 2 - diet controlled, A1c previously 5.8 Severe Protein calorie malnutrition - severe given his edema and albumin. Roto Rooter Operator to see D/W RN 09/07 CR 2.2 LESS swollen lower extremities. No chest pain little bit short of breath. Acute on chronic combined systolic and diastolic heart failure. We will diurese with intravenous Bumex. 2D echo in September 2019 showed LVEF 40%. Coronary artery disease: Patient has known chronic total occlusion of LAD with collaterals, presently stable and chest pain-free. Lexiscan nuclear stress test in March 2020 showed large inferior infarct without any significant ischemia. Continue current secondary prevention measures. Sick sinus syndrome s/p permanent pacemaker implantation with more recent generator change. Recent device check showed normal function. He denied any syncope or near syncope. Permanent atrial fibrillation: Telemetry showed demand pacing. Patient on warfarin for stroke prophylaxis. Check PT/INR. Hypertension - Controlled. Will back off on his BB. He is actually on 100mg metoprolol tartrate Hyperlipidemia - Continue statin Diabetes mellitus type 2 - diet controlled, A1c previously 5.8 Severe Protein calorie malnutrition - severe given his edema and albumin. Roto Rooter Operator to see D/W RN 09/08 CR 2.0 wbc 30.3 CAD; catheterization 08/2018 with ASSISTANT ACTIVITIES DIRECTOR of LAD with collaterals, which is unchanged from previous cath in 2013. clinically stable, CP free. 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 Permanent AFIB; rate controlled with BB. on warfarin for stroke prevention. 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 No chest pain little bit short of breath. Acute on chronic combined systolic and diastolic heart failure. We will diurese with intravenous Bumex. 2D echo in September 2019 showed LVEF 40%. Coronary artery disease: Patient has known chronic total occlusion of LAD with collaterals, presently stable and chest pain-free. Lexiscan nuclear stress test in March 2020 showed large inferior infarct without any significant ischemia. Continue current secondary prevention measures. Sick sinus syndrome s/p permanent pacemaker implantation with more recent generator change. Recent device check showed normal function. He denied any syncope or near syncope. Permanent atrial fibrillation: Telemetry showed demand pacing. Patient on warfarin for stroke prophylaxis. Check PT/INR. Hypertension - Controlled. Will back off on his BB. He is actually on 100mg metoprolol tartrate Hyperlipidemia - Continue statin Diabetes mellitus type 2 - diet controlled, A1c previously 5.8 Severe Protein calorie malnutrition - severe given his edema and albumin. Roto Rooter Operator to see D/W RN 37 min pt exam, chart review, > 50% of time spent with exam, chart review, pt care coordination 09/09 CR 2.0 wbc 30.3 CAD; catheterization 08/2018 with ASSISTANT ACTIVITIES DIRECTOR of LAD with collaterals, which is unchanged from previous cath in 2013. clinically stable, CP free. 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 Permanent AFIB; rate controlled with BB. on warfarin for stroke prevention. 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 No chest pain little bit short of breath. Acute on chronic combined systolic and diastolic heart failure. We will diurese with intravenous Bumex. 2D echo in September 2019 showed LVEF 40%. Coronary artery disease: Patient has known chronic total occlusion of LAD with c ollaterals, presently stable and chest pain-free. Lexiscan nuclear stress test in March 2020 showed large inferior infarct without any significant ischemia. Continue current secondary prevention measures. Sick sinus syndrome s/p permanent pacemaker implantation with more recent generator change. Recent device check showed normal function. He denied any syncope or near syncope. Permanent atrial fibrillation: Telemetry showed demand pacing. Patient on warfarin for stroke prophylaxis. Check PT/INR. Hypertension - Controlled. Will back off on his BB. 100mg metoprolol tartrate Hyperlipidemia - Continue statin Diabetes mellitus type 2 - diet controlled, A1c previously 5.8 Severe Protein calorie malnutrition - severe given his edema and albumin. Roto Rooter Operator to see D/W RN Defer to pulmonology regarding management of acute hypoxic respiratory failure and antibiotics ONCOLOGY plan on seeing patient in follow-up as outpatient to reassess CBC and discussed results of BCR ABL FISH and JAK2 mutation testing ID CONSULT 36 min pt exam, chart review, > 50% of time spent with exam, chart review, pt care coordination Worsening interstitial changes throughout both lungs, with worsening perihilar consolidation. Findings may reflect progressive interstitial pulmonary edema or infection. CXR 09-15 long discussion with family, , 2 sons they are not sure he desires a BM BX , will cont to monitor CR 2.0 wbc 31 CAD; catheterization 08/2018 with ASSISTANT ACTIVITIES DIRECTOR of LAD with collaterals, which is unchanged from previous cath in 2013. clinically stable, CP free. 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 Permanent AFIB; rate controlled with BB. on warfarin for stroke prevention. 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 No chest pain little bit short of breath. Acute on chronic combined systolic and diastolic heart failure. We will diurese with intravenous Bumex. 2D echo in September 2019 showed LVEF 40%. Coronary artery disease: Patient has known chronic total occlusion of LAD with collaterals, presently stable and chest pain-free. Lexiscan nuclear stress test in March 2020 showed large inferior infarct without any significant ischemia. Continue current secondary prevention measures. Sick sinus syndrome s/p permanent pacemaker implantation with more recent gen erator change. Recent device check showed normal function. He denied any syncope or near syncope. Permanent atrial fibrillation: Telemetry showed demand pacing. Patient on warfarin for stroke prophylaxis. Check PT/INR. Hypertension - Controlled. Will back off on his BB. 100mg metoprolol tartrate Hyperlipidemia - Continue statin Diabetes mellitus type 2 - diet controlled, A1c previously 5.8 Severe Protein calorie malnutrition - severe given his edema and albumin. Roto Rooter Operator to see D/W RN Defer to pulmonology regarding management of acute hypoxic respiratory failure and antibiotics ONCOLOGY plan on seeing patient in follow-up as outpatient to reassess CBC and discussed results of BCR ABL FISH and JAK2 mutation testing ID CONSULT 38 min pt exam, chart review, > 50% of time spent with exam, chart review, pt care coordination Worsening interstitial changes throughout both lungs, with worsening perihilar consolidation. Findings may reflect progressive interstitial pulmonary edema or infection. CXR -09/11 long discussion with family, , 2 sons they are not sure he desires a BM BX , will cont to monitor CR 2.0 wbc 31 CAD; catheterization 08/2018 with ASSISTANT ACTIVITIES DIRECTOR of LAD with collaterals, which is unchanged from previous cath in 2013. clinically stable, CP free. 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 Permanent AFIB; rate controlled with BB. on warfarin for stroke prevention. 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 No chest pain little bit short of breath. Acute on chronic combined systolic and diastolic heart failure. We will diurese with intravenous Bumex. 2D echo in September 2019 showed LVEF 40%. Coronary artery disease: Patient has known chronic total occlusion of LAD with collaterals, presently stable and chest pain-free. Lexiscan nuclear stress test in March 2020 showed large inferior infarct without any significant ischemia. Continue current secondary prevention measures. Sick sinus syndrome s/p permanent pacemaker implantation with more recent generator change. Recent device check showed normal function. He denied any syncope or near syncope. Permanent atrial fibrillation: Telemetry showed demand pacing. Patient on warfarin for stroke prophylaxis. Check PT/INR. Hypertension - Controlled. Will back off on his BB. 100mg metoprolol tartrate Hyperlipidemia - Continue statin Diabetes mellitus type 2 - diet controlled, A1c previously 5.8 Severe Protein calorie malnutrition - severe given his edema and albumin. Roto Rooter Operator to see D/W RN Defer to pulmonology regarding management of acute hypoxic respiratory failure and antibiotics ONCOLOGY plan on seeing patient in follow-up as outpatient to reassess CBC and discussed results of BCR ABL FISH and JAK2 mutation testing ID CONSULT 36 min pt exam, chart review, > 50% of time spent with exam, chart review, pt care coordination Worsening interstitial changes throughout both lungs, with worsening perihilar consolidation. Findings may reflect progressive interstitial pulmonary edema or infection. CXR 09-09 Continue Merrem ( 09/10) and Zyvox,was on zosyn add micafungin 09/12 long discussion with family, , 2 sons 09-11 they are not sure he desires a BM BX , will cont to monitor CR 2.0 wbc 31 CAD; catheterization 08/2018 with ASSISTANT ACTIVITIES DIRECTOR of LAD with collaterals, which is unchanged from previous cath in 2013. clinically stable, CP free. 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 Permanent AFIB; rate controlled with BB. on warfarin for stroke prevention. 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 No chest pain little bit short of breath. Acute on chronic combined systolic and diastolic heart failure. We will diurese with intravenous Bumex. 2D echo in September 2019 showed LVEF 40%. Coronary artery disease: Patient has known chronic total occlusion of LAD with collaterals, presently stable and chest pain-free. Lexiscan nuclear stress test in March 2020 showed large inferior infarct without any significant ischemia. Continue current secondary prevention measures. Sick sinus syndrome s/p permanent pacemaker implantation with more recent gene rator change. Recent device check showed normal function. He denied any syncope or near syncope. Permanent atrial fibrillation: Telemetry showed demand pacing. Patient on warfarin for stroke prophylaxis. Check PT/INR. Hypertension - Controlled. Will back off on his BB. 100mg metoprolol tartrate Hyperlipidemia - Continue statin Diabetes mellitus type 2 - diet controlled, A1c previously 5.8 Severe Protein calorie malnutrition - severe given his edema and albumin. Roto Rooter Operator to see D/W RN Defer to pulmonology regarding management of acute hypoxic respiratory failure and antibiotics ONCOLOGY plan on seeing patient in follow-up as outpatient to reassess CBC and discussed results of BCR ABL FISH and JAK2 mutation testing ID CONSULT 37 min pt exam, chart review, > 50% of time spent with exam, chart review, pt care coordination Worsening interstitial changes throughout both lungs, with worsening perihilar consolidation. Findings may reflect progressive interstitial pulmonary edema or infection. CXR 09-09 Continue Merrem ( 09/10) and Zyvox,was on zosyn CONTINUE micafungin 09/13 Afebrile overnight, currently breathing on room air. WBC 43.6 today. Chest x- ray showing left lower lobe pneumonia as possible source of leukocytosis. We will continue treatment with Zosyn, Zyvox, and micafungin. Repeat urinalysis and urine culture pending. Bilateral lower extremity ultrasounds negative for DVT. Discussed with (POOL), who is opting to defer outpatient bone marrow biopsy and further work-up for possible leukemia. She is preferring instead to proceed with medical management. Discussed with DPOA and son about CODE STATUS, they are currently undecided and will revisit this question at a later time. Charts, labs, imaging reviewed, and discussed with RN. 09/14 No acute events overnight, afebrile. Patient with no concerns today; no family is at bedside at the time of my evaluation. He was recommended to continue meropenem, Zyvox, and micafungin, per ID. CT head yesterday showed small to moderate subacute appearing right frontal subdural hematoma measuring 5 mm with rightward midline shift. Consult was placed to neurosurgery. Warfarin is being held and neurosurgery recommended CT head in 7 to [address] Nicholas, patient would benefit from some rehab at [facility] and we can repeat CT head in about a week's time. We will continue current treatment and plan for [facility] likely tomorrow or the next day. 09/15 Patient afebrile, no complaints today. I had lengthy discussion with over the phone about small to moderate subacute appearing right frontal subdural hematoma seen on CT head. Discussed with that I can no longer anticoagulate him due to this bleed, and she would like to discuss with his defense travel administrator about best options going forward given his history of atrial fibrillation. Had discussion with son at bedside about the likely diagnosis of leukemia but family does not want work-up with bone marrow biopsy, subdural hematoma seen on CT head, fluid accumulation in his bilateral legs and upper extremity, and concerns for aspiration risk. Plan still remains discharge to [facility] when stable. Will convert p.o. Zyvox to IV given aspiration risk. Consult placed to ST. 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 09/16 Afebrile, no events overnight. I discussion with ID and hematology/oncology, in agreement that we can stop antibiotics as leukocytosis is likely secondary to myeloproliferative disorder which patient and family are not wanting treated. Had lengthy conversation with patient's (POOL) about his multiple comorbidities, which now include significant oropharyngeal dysphagia and n.p.o. status. is in agreement with foregoing further treatments and discharging patient to detention. would like to speak with her children prior to making any decisions about PPN vs. PEG tube. Both and family are not ready for hospice or comfort care measures at this time. Total critical care time spent 30 minutes in review of labs, review of charts, discussion with , disc ussion with son, discussion with ID. Vitals/I&O Vitals/I&O: Vital Signs Date Time Temp Pulse Resp B/P (MAP) Pulse Ox O2 Delivery O2 Flow Rate FiO2 09/16/20 11:00 99.5 107 18 99/53 (68) 94 Room Air 99.5 I & O 09/15/20 09/15/20 09/16/20 15:00 23:00 07:00 Intake Total 100 ml 500 ml 100 ml Balance 100 ml 500 ml 100 ml Physical Exam Physical Exam: GENERAL: CONFUSED male, not in distress distress. HEENT: Normocephalic, atraumatic. Oral mucosa moist. NECK: Supple. LUNGS: Mild crackles. HEART: S1, S2. Pacemaker without signs of complication. ABDOMEN: Soft, nontender, and nondistended. EXTREMITIES: No cyanosis bilateral lower extremity swelling present. NO Calf tenderness present left lower extremity MSK changes suggestive of DJD, pain in left knee, no effusion DERMATOLOGIC: Warm, dry. No generalized rash. NEUROLOGIC: Alert, awake, answers questions appropriately. PSYCHIATRIC: Calm and cooperative. General: Alert, Cooperative, No acute distress Heart: Normal S1, Normal S2, No murmurs Lungs: Crackles (bases ) Abdomen: Normal bowel sounds, Soft, No tenderness Extremities: No clubbing, No cyanosis Skin: No rashes, No breakdown Labs Labs: Laboratory Tests Test 09/15/20 17:30 09/15/20 20:33 09/16/20 00:53 09/16/20 05:55 Glucose (Fingerstick) 86 mg/dL (70-99) 91 mg/dL (70-99) 84 mg/dL (70-99) White Blood Count 50.4 x10^3/uL (4.0-11.0) Red Blood Count 3.42 x10^6/uL (4.30-5.70) Hemoglobin 9.2 g/dL (13.0-17.5) Hematocrit 30.4 % (39.0-53.0) Mean Corpuscular Volume 89 fL (79-100) Mean Corpuscular Hemoglobin 27 pg (25-35) Mean Corpuscular Hemoglobin Concent 30 g/dL (31-37) Red Cell Distribution Width 24.8 % (11.5-14.5) Platelet Count 275 x10^3/uL (140-400) Neutrophils (%) (Auto) 92 % (31-73) Lymphocytes (%) (Auto) 3 % (24-48) Monocytes (%) (Auto) 1 % (0-9) Eosinophils (%) (Auto) 0 % (0-3) Basophils (%) (Auto) 4 % (0-3) Neutrophils # (Auto) 46.3 x10^3/uL (1.8-7.7) Lymphocytes # (Auto) 1.5 x10^3/uL (1.0-4.8) Monocytes # (Auto) 0.5 x10^3/uL (0.0-1.1) Eosinophils # (Auto) 0.2 x10^3/uL (0.0-0.7) Basophils # (Auto) 2.0 x10^3/uL (0.0-0.2) Sodium Level 142 mmol/L (136-145) Potassium Level 3.9 mmol/L (3.5-5.1) Chloride Level 106 mmol/L (98-107) Carbon Dioxide Level 17 mmol/L (21-32) Anion Gap 19 (6-14) Blood Urea Nitrogen 85 mg/dL (8-26) Creatinine 2.5 mg/dL (0.7-1.3) Estimated GFR (Cockcroft-Gault) 29.6 Glucose Level 69 mg/dL (70-99) Calcium Level 8.3 mg/dL (8.5-10.1) Test 09/16/20 08:35 09/16/20 12:20 09/16/20 13:07 Glucose (Fingerstick) 86 mg/dL (70-99) 57 mg/dL (70-99) 90 mg/dL (70-99) Assessment and Plan Assessmemt and Plan Problems Medical Problems: (1) CHF (congestive heart failure) Status: Acute Comment Review of Relevant I have reviewed the following items tiffany (where applicable) has been applied. Medications: Current Medications Medications (Trade) Dose Ordered Sig/Rakesh Route PRN Reason Start Time Stop Time Status Last Admin Dose Admin Albumin Human 100 ml @ 100 mls/hr 1X ONCE IV 09/15/20 22:15 09/15/20 23:14 DC 09/15/20 22:19 Haloperidol Lactate (Haldol Inj) 2 mg 1X ONCE IVP 09/15/20 22:15 09/15/20 22:16 DC 09/15/20 22:20 Dextrose/Sodium Chloride 1,000 ml @ 50 mls/hr Q20H IV 09/16/20 12:30 09/16/20 12:35 Justifications for Admission Other Justification ANEESH PRABHAKAR MD Sep 16, 2020 14:41
[2020-09-16 15:00] VITALS: BP 90/44
[2020-09-16 19:00] VITALS: BP 81/34
[2020-09-16] MEDS: TAMSULOSIN 0.4 MG CAP.ER.24H. PO SCH (21:00)
[2020-09-16 23:00] VITALS: BP 71/41
[2020-09-17 02:48] VITALS: BP 94/43
[2020-09-17] MEDS: IV DEXTROSE 5% - 0.9 % NACL 1,000 ML IV SCH (06:35)
[2020-09-17 06:55] LABS: BASO # 0.7 x10^3/uL (0.0-0.2); BASO % 1 % (0-3); EOS # 0.4 x10^3/uL (0.0-0.7); EOS % 1 % (0-3); HEMATOCRIT 31.4 % (39.0-53.0); HEMOGLOBIN 9.6 g/dL (13.0-17.5); LYMPH # 1.3 x10^3/uL (1.0-4.8); LYMPH % 2 % (24-48); MEAN CORPUSCULAR HEMOGLOBIN 27 pg (25-35); MEAN CORPUSCULAR HGB CONC 31 g/dL (31-37); MEAN CORPUSCULAR VOLUME 89 fL (79-100); MONO # 0.4 x10^3/uL (0.0-1.1); MONO % 1 % (0-9); NEUT # 52.2 x10^3/uL (1.8-7.7); NEUT % 95 % (31-73); PLATELET COUNT 267 x10^3/uL (140-400); RED BLOOD COUNT 3.55 x10^6/uL (4.30-5.70); RED CELL DISTRIBUTION WIDTH 25.7 % (11.5-14.5)
[2020-09-17 07:00] VITALS: BP 84/36
[2020-09-17 07:13] LABS: CALCIUM 7.9 mg/dL (8.5-10.1); CREATININE 3.1 mg/dL (0.7-1.3); GFR 23.1; POTASSIUM 4.2 mmol/L (3.5-5.1)
[2020-09-17] MEDS: INSULIN LISPRO 300 UNITS/3 ML VIAL. SQ SCH ×2 (08:00→08:03)
[2020-09-17] MEDS: ATORVASTATIN CALCIUM 40 MG TABLET. PO SCH (08:02)
[2020-09-17] MEDS: ASCORBIC ACID 500 MG TABLET PO SCH (08:02)
[2020-09-17] MEDS: DOCUSATE SODIUM 100 MG CAPSULE. PO SCH ×2 (08:02→08:03)
[2020-09-17] MEDS: LACTOBACILLUS RHAMNOSUS GG 1 CAPSULE. PO SCH (08:02)
--- NOTE | 2020-09-17 08:49 | PDOC ---
PULMONARY PROGRESS NOTES DATE: 09/17/20 TIME: 08:49 Subjective Remains on room air No SOA or Cough low grade fever overnight Vitals Vital Signs Date Time Temp Pulse Resp B/P (MAP) Pulse Ox O2 Delivery O2 Flow Rate FiO2 09/17/20 07:00 97.9 98 24 84/36 (52) 97 Room Air 97.9 ROS: No Nausea, No Chest Pain, No Abdominal Pain, No Increase Cough General: Alert, No acute distress Lungs: Crackles (bases ) Cardiovascular: S1, S2 Abdomen: Soft, Non-tender Neuro Exam: Alert, Oriented Extremities: Other (edema) Skin: Warm, Dry Labs Laboratory Tests Test 09/15/20 12:25 09/15/20 17:30 09/15/20 20:33 09/16/20 00:53 Glucose (Fingerstick) 137 mg/dL (70-99) 86 mg/dL (70-99) 91 mg/dL (70-99) 84 mg/dL (70-99) Test 09/16/20 05:55 09/16/20 08:35 09/16/20 12:20 09/16/20 13:07 White Blood Count 50.4 x10^3/uL (4.0-11.0) Red Blood Count 3.42 x10^6/uL (4.30-5.70) Hemoglobin 9.2 g/dL (13.0-17.5) Hematocrit 30.4 % (39.0-53.0) Mean Corpuscular Volume 89 fL (79-100) Mean Corpuscular Hemoglobin 27 pg (25-35) Mean Corpuscular Hemoglobin Concent 30 g/dL (31-37) Red Cell Distribution Width 24.8 % (11.5-14.5) Platelet Count 275 x10^3/uL (140-400) Neutrophils (%) (Auto) 92 % (31-73) Lymphocytes (%) (Auto) 3 % (24-48) Monocytes (%) (Auto) 1 % (0-9) Eosinophils (%) (Auto) 0 % (0-3) Basophils (%) (Auto) 4 % (0-3) Neutrophils # (Auto) 46.3 x10^3/uL (1.8-7.7) Lymphocytes # (Auto) 1.5 x10^3/uL (1.0-4.8) Monocytes # (Auto) 0.5 x10^3/uL (0.0-1.1) Eosinophils # (Auto) 0.2 x10^3/uL (0.0-0.7) Basophils # (Auto) 2.0 x10^3/uL (0.0-0.2) Sodium Level 142 mmol/L (136-145) Potassium Level 3.9 mmol/L (3.5-5.1) Chloride Level 106 mmol/L (98-107) Carbon Dioxide Level 17 mmol/L (21-32) Anion Gap 19 (6-14) Blood Urea Nitrogen 85 mg/dL (8-26) Creatinine 2.5 mg/dL (0.7-1.3) Estimated GFR (Cockcroft-Gault) 29.6 Glucose Level 69 mg/dL (70-99) Calcium Level 8.3 mg/dL (8.5-10.1) Glucose (Fingerstick) 86 mg/dL (70-99) 57 mg/dL (70-99) 90 mg/dL (70-99) Test 09/16/20 17:13 09/16/20 20:13 09/17/20 06:35 09/17/20 07:38 Glucose (Fingerstick) 91 mg/dL (70-99) 82 mg/dL (70-99) 82 mg/dL (70-99) White Blood Count 55.0 x10^3/uL (4.0-11.0) Red Blood Count 3.55 x10^6/uL (4.30-5.70) Hemoglobin 9.6 g/dL (13.0-17.5) Hematocrit 31.4 % (39.0-53.0) Mean Corpuscular Volume 89 fL (79-100) Mean Corpuscular Hemoglobin 27 pg (25-35) Mean Corpuscular Hemoglobin Concent 31 g/dL (31-37) Red Cell Distribution Width 25.7 % (11.5-14.5) Platelet Count 267 x10^3/uL (140-400) Neutrophils (%) (Auto) 95 % (31-73) Lymphocytes (%) (Auto) 2 % (24-48) Monocytes (%) (Auto) 1 % (0-9) Eosinophils (%) (Auto) 1 % (0-3) Basophils (%) (Auto) 1 % (0-3) Neutrophils # (Auto) 52.2 x10^3/uL (1.8-7.7) Lymphocytes # (Auto) 1.3 x10^3/uL (1.0-4.8) Monocytes # (Auto) 0.4 x10^3/uL (0.0-1.1) Eosinophils # (Auto) 0.4 x10^3/uL (0.0-0.7) Basophils # (Auto) 0.7 x10^3/uL (0.0-0.2) Sodium Level 142 mmol/L (136-145) Potassium Level 4.2 mmol/L (3.5-5.1) Chloride Level 108 mmol/L (98-107) Carbon Dioxide Level 15 mmol/L (21-32) Anion Gap 19 (6-14) Blood Urea Nitrogen 99 mg/dL (8-26) Creatinine 3.1 mg/dL (0.7-1.3) Estimated GFR (Cockcroft-Gault) 23.1 Glucose Level 82 mg/dL (70-99) Calcium Level 7.9 mg/dL (8.5-10.1) Laboratory Tests Test 09/16/20 12:20 09/16/20 13:07 09/16/20 17:13 09/16/20 20:13 Glucose (Fingerstick) 57 mg/dL (70-99) 90 mg/dL (70-99) 91 mg/dL (70-99) 82 mg/dL (70-99) Test 09/17/20 06:35 09/17/20 07:38 White Blood Count 55.0 x10^3/uL (4.0-11.0) Red Blood Count 3.55 x10^6/uL (4.30-5.70) Hemoglobin 9.6 g/dL (13.0-17.5) Hematocrit 31.4 % (39.0-53.0) Mean Corpuscular Volume 89 fL (79-100) Mean Corpuscular Hemoglobin 27 pg (25-35) Mean Corpuscular Hemoglobin Concent 31 g/dL (31-37) Red Cell Distribution Width 25.7 % (11.5-14.5) Platelet Count 267 x10^3/uL (140-400) Neutrophils (%) (Auto) 95 % (31-73) Lymphocytes (%) (Auto) 2 % (24-48) Monocytes (%) (Auto) 1 % (0-9) Eosinophils (%) (Auto) 1 % (0-3) Basophils (%) (Auto) 1 % (0-3) Neutrophils # (Auto) 52.2 x10^3/uL (1.8-7.7) Lymphocytes # (Auto) 1.3 x10^3/uL (1.0-4.8) Monocytes # (Auto) 0.4 x10^3/uL (0.0-1.1) Eosinophils # (Auto) 0.4 x10^3/uL (0.0-0.7) Basophils # (Auto) 0.7 x10^3/uL (0.0-0.2) Sodium Level 142 mmol/L (136-145) Potassium Level 4.2 mmol/L (3.5-5.1) Chloride Level 108 mmol/L (98-107) Carbon Dioxide Level 15 mmol/L (21-32) Anion Gap 19 (6-14) Blood Urea Nitrogen 99 mg/dL (8-26) Creatinine 3.1 mg/dL (0.7-1.3) Estimated GFR (Cockcroft-Gault) 23.1 Glucose Level 82 mg/dL (70-99) Calcium Level 7.9 mg/dL (8.5-10.1) Glucose (Fingerstick) 82 mg/dL (70-99) Medications Active Scripts Medications Dose Route/Sig Max Daily Dose Days Date Category Dose Instructions Bumetanide 1 Mg Tablet 1 Mg PO BID 07/28/20 Reported [place] 5-325 Tablet (Acetaminophen/Hydrocodone Bitart) 1 Each Tablet 7.5 Mg PO PRN Q6HRS PRN 6 09/20/18 Rx LAST DOSE GIVEN: Colace (Docusate Sodium) 100 Mg Capsule 1 Cap PO TID 09/09/18 Reported Metamucil Powder (Psyllium Seed (with Sugar)) 575 Gm Powder 575 Gm PO DAILY 09/09/18 Reported Atorvastatin Calcium 40 Mg Tablet 1 Tab PO DAILY 08/12/18 Reported Metoprolol Tartrate 100 Mg Tablet 100 Mg PO DAILY 11/08/17 Reported Tamsulosin Hcl 0.4 Mg Cap.er.24h 0.4 Mg PO HS DAILY 11/08/17 Reported Vitamin C (Ascorbic Acid) 500 Mg Tablet 250 Mg PO DAILY 05/08/14 Reported Warfarin Sodium 5 Mg Tablet 1.5 Tab PO QWE 04/18/14 Reported Warfarin Sodium 5 Mg Tablet 1 Tab PO DAILY EXCEPT WED. 04/18/14 Reported Aspirin 81 Mg Tab.chew 81 Mg PO BID 08/22/13 Reported Lanoxin (Digoxin) 125 Mcg Tablet 125 Mcg PO DAILY 08/22/13 Reported Comments 09/11 cxr reviewed 1. Left lower lobe infiltrate superimposed on chronic interstitial changes. 2. Stable small pleural effusions. 3. Cardiomegaly and left greater than right hilar enlargement likely due to pulmonary artery hypertension. ct of abd pelvis chest 1. Enlarged ascending thoracic aorta measuring 4.5 cm. 2. Moderate cardiomegaly. 3. Increased, small pleural effusions and bibasilar atelectasis. Mild emphysema. Chronic appearing interstitial changes or scarring in the lung bases, unchanged. 4. Mild hepatosplenomegaly. 5. Trace ascites. Impression . IMPRESSION: 1. Dyspnea secondary to acute systolic and diastolic congestive heart failure--improving on room air 2. Abnormal chest x-ray. 3. 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 4. Cardiomyopathy. 5. 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 6. Obstructive sleep apnea-hypopnea syndrome, CPAP noncompliant. 7. Paroxysmal atrial fibrillation, on Coumadin. 8. Acute kidney injury/chronic kidney disease. 9. leukocytosis --worsening --ID following 10. Chronic SDH-- neuro SX. following Plan . Updated 09/17, chart reviewed, patient not seen, will sign off call if needed RECOMMENDATIONS: Pt. is stable from respiratory stand point Titrate FiO2 to keep O2 saturation 90%, on room air Follow ID recs-- for ABX CT of chest reviewed, Increased, but small pleural effusions (not amenable to thoracentesis) and bibasilar atelectasis. Mild emphysema. Chronic appearing inte rstitial changes or scarring in the lung bases, unchanged. Follow Oncology recs-- myelofibrosis is the leading differential diagnosis-- pt. doesn't want further work up-- recommending hospice Follow cardiology recs----Echocardiogram 2019 ejection fraction of 40% Follow nephrology recs - monitor renal function Coumadin on HOLD Neuro surgery following -- SDH PT/OT/ST-- failed swallow study now npo--nutritional support DVT/GI PPX D/W RN Pt. is DNR we will see PRN please call with questions or concerns BREN CARDOZO MD Sep 17, 2020 08:49
--- NOTE | 2020-09-17 09:18 | PDOC ---
DATE OF SERVICE DATE: 09/17/20 TIME: 09:17 SUBJECTIVE ROS No acute events overnight, afebrile. OBJECTIVE Vital Signs Vital Signs Date Time Temp Pulse Resp B/P (MAP) Pulse Ox O2 Delivery O2 Flow Rate FiO2 09/17/20 07:00 97.9 98 24 84/36 (52) 97 Room Air 97.9 I & 0 Intake and Output 09/17/20 07:00 Intake Total 1050 ml Balance 1050 ml Intake Oral 0 ml IV Total 1050 ml # Voids 3 PHYSICAL EXAM Physical Exam Gen NAD , HEEN OM moist, hard of hearing Neck Supple Lungs decreased bases, Non labored CV S1`s2 Abd Soft, NT Neuro grossly Normal Skin No rash No CVA OR SP tenderness, No gaytan DIAGNOSIS/ASSESSMENT Assessment & Plan DION - suspect Cardiorenal , Cr elevated in July - admitted for CHF, prior labs in [facility] records with normal baseline Cr Worsening renal function , held diuretics monitor, supportive care, Urine output not recorded ,Wt has been stable Avoid nephrotoxins and overdiuresis .. Acute on chronic systolic heart failure- appears compensated Echocardiogram 2020 ejection fraction of 40%. On Bumex at home . Card managing, currently on IV Bumex HyperNatremia - resolved HypoKalemia- Normal K today Exacerbation of COPD Chest x-ray- left lower lobe pneumonia Atrial fibrillation. History of coronary artery disease. Diabetes mellitus Hypertension; controlled Leukocytosis, neutrophilic/ Thrombocytosis/ Elevated K and L, K/L - per Hem Onc high rislk of myelofibrosis . Patient is not interested in further evaluation incluiding BM Bx . subacute appearing right frontal subdural hematoma. 5 mm rightward midline shift.warfarin is being held. NS Poor Prognosis Dr Megan Olivarez discussing with family members for transition to Hospice 2./2 myeloproliferative disorder which patient and family are not wanting treated; multiple comorbidities including new oropharyngeal dysphagia COMMENT/RELEVANT DATA Meds Current Medications Medications (Trade) Dose Ordered Sig/Rakesh Start Time Stop Time Status Last Admin Dose Admin Acetaminophen (Tylenol) 650 mg PRN Q4HRS PRN 09/03/20 21:00 09/04/20 20:59 DC Acetaminophen/ Hydrocodone Bitart (Lortab 5/325) 1 tab PRN Q6HRS PRN 09/03/20 22:15 09/14/20 18:23 1 TAB Albumin Human 100 ml @ 100 mls/hr 1X ONCE 09/15/20 22:15 09/15/20 23:14 DC 09/15/20 22:19 100 MLS/HR Albuterol Sulfate (Ventolin Neb Soln) 2.5 mg PRN Q6HRS PRN 09/12/20 08:15 Albuterol/ Ipratropium (Duoneb) 3 ml RTQID 09/04/20 08:00 09/12/20 08:01 DC 09/10/20 20:11 3 ML Ascorbic Acid (Vitamin C) 250 mg DAILY 09/04/20 09:00 09/14/20 08:48 250 MG Aspirin (Aspirin Chewable) 81 mg BID 09/04/20 09:00 09/13/20 09:28 DC 09/12/20 21:09 81 MG Atorvastatin Calcium (Lipitor) 40 mg DAILY 09/04/20 09:00 09/14/20 08:48 40 MG Bisacodyl (Dulcolax Supp) 10 mg PRN DAILY PRN 09/07/20 18:45 09/08/20 08:29 10 MG Bumetanide (Bumex) 1 mg [id number] 09/05/20 09:00 09/16/20 17:36 DC 09/15/20 14:12 1 MG Dextrose 1,000 ml @ 25 mls/hr Q24H 09/11/20 19:15 09/16/20 18:28 DC 09/11/20 20:29 25 MLS/HR Dextrose (Dextrose 50%-Water Syringe) 12.5 gm PRN Q15MIN PRN 09/03/20 22:15 09/16/20 12:34 12.5 GM Dextrose/Sodium Chloride 1,000 ml @ 50 mls/hr Q20H 09/16/20 12:30 09/17/20 06:35 50 MLS/HR Digoxin (Lanoxin) 125 mcg DAILY 09/04/20 09:00 09/04/20 07:47 DC Docusate Sodium (Colace) 100 mg TID 09/04/20 09:00 09/13/20 10:58 100 MG Furosemide (Lasix) 20 mg DAILY 09/11/20 09:00 UNV Haloperidol Lactate (Haldol Inj) 2 mg 1X ONCE 09/15/20 22:15 09/15/20 22:16 DC 09/15/20 22:20 2 MG Insulin Human Lispro (HumaLOG) 0-7 UNITS TIDWMEALS 09/04/20 08:00 09/04/20 12:32 4 UNITS Lactobacillus Rhamnosus (Culturelle) 1 cap BID 09/04/20 21:00 09/14/20 21:06 1 CAP Linezolid (Zyvox) 600 mg BID 09/09/20 12:00 09/15/20 09:56 DC 09/14/20 21:06 600 MG Linezolid/Dextrose 300 ml @ 300 mls/hr Q12HR 09/15/20 11:00 09/16/20 09:06 DC 09/15/20 20:17 300 MLS/HR Meropenem 500 mg/ Sodium Chloride 50 ml @ 100 mls/hr Q8HRS 09/10/20 14:00 09/16/20 09:06 DC 09/16/20 05:24 100 MLS/HR Metoprolol Tartrate (Lopressor) 100 mg DAILY 09/04/20 09:00 09/04/20 07:29 DC Micafungin Sodium 100 mg/Dextrose 100 ml @ 100 mls/hr Q24H 09/11/20 10:00 09/16/20 09:06 DC 09/15/20 10:14 100 MLS/HR Morphine Sulfate (Morphine Sulfate) 2 mg PRN Q2HR PRN 09/15/20 14:15 09/15/20 20:11 2 MG Ondansetron HCl (Zofran) 4 mg PRN Q8HRS PRN 09/03/20 21:00 09/04/20 20:59 DC Phenyleph/Shark Oil/Min Oil/Petrol (Preparation H) 1 mihaela PRN QID PRN 09/10/20 19:15 Phytonadione 10 mg/Dextrose 51 ml @ 102 mls/hr 1X ONCE 09/14/20 14:00 09/14/20 14:29 DC 09/14/20 13:56 102 MLS/HR Piperacillin Sod/ Tazobactam Sod (Zosyn Per Pharmacy) 1 each PRN DAILY PRN 09/03/20 22:15 Cancel Piperacillin Sod/ Tazobactam Sod 3.375 gm/Sodium Chloride 50 ml @ 100 mls/hr Q6HRS 09/04/20 06:00 6/4/21 11:42 DC 09/10/20 05:09 100 MLS/HR Potassium Bicarbonate (Potassium Effervescent Tablet) 40 meq 1X ONCE 09/05/20 08:00 09/05/20 08:01 DC 09/05/20 09:06 40 MEQ Potassium Chloride (Klor-Con) 20 meq 1X ONCE 09/09/20 10:00 09/09/20 10:01 DC 09/09/20 09:32 20 MEQ Prednisone (Prednisone) 40 mg 1X ONCE 09/03/20 22:15 09/03/20 22:21 DC 09/03/20 22:41 40 MG Tamsulosin HCl (Flomax) 0.4 mg QHS 09/05/20 21:00 09/14/20 21:06 0.4 MG Warfarin Sodium (Coumadin - No Dose Today) 1 each 1X WARF ONCE 09/08/20 16:00 09/08/20 16:01 Cancel Warfarin Sodium (Coumadin Per Pharmacy) 1 each PRN DAILY PRN 09/03/20 22:15 09/13/20 09:28 DC 09/13/20 09:06 1 EACH Warfarin Sodium (Coumadin) 4 mg 1X WARF ONCE 09/13/20 16:00 09/13/20 09:28 DC Lab Laboratory Tests Test 09/16/20 12:20 09/16/20 13:07 09/16/20 17:13 09/16/20 20:13 Glucose (Fingerstick) 57 mg/dL (70-99) 90 mg/dL (70-99) 91 mg/dL (70-99) 82 mg/dL (70-99) Test 09/17/20 06:35 09/17/20 07:38 White Blood Count 55.0 x10^3/uL (4.0-11.0) Red Blood Count 3.55 x10^6/uL (4.30-5.70) Hemoglobin 9.6 g/dL (13.0-17.5) Hematocrit 31.4 % (39.0-53.0) Mean Corpuscular Volume 89 fL (79-100) Mean Corpuscular Hemoglobin 27 pg (25-35) Mean Corpuscular Hemoglobin Concent 31 g/dL (31-37) Red Cell Distribution Width 25.7 % (11.5-14.5) Platelet Count 267 x10^3/uL (140-400) Neutrophils (%) (Auto) 95 % (31-73) Lymphocytes (%) (Auto) 2 % (24-48) Monocytes (%) (Auto) 1 % (0-9) Eosinophils (%) (Auto) 1 % (0-3) Basophils (%) (Auto) 1 % (0-3) Neutrophils # (Auto) 52.2 x10^3/uL (1.8-7.7) Lymphocytes # (Auto) 1.3 x10^3/uL (1.0-4.8) Monocytes # (Auto) 0.4 x10^3/uL (0.0-1.1) Eosinophils # (Auto) 0.4 x10^3/uL (0.0-0.7) Basophils # (Auto) 0.7 x10^3/uL (0.0-0.2) Sodium Level 142 mmol/L (136-145) Potassium Level 4.2 mmol/L (3.5-5.1) Chloride Level 108 mmol/L (98-107) Carbon Dioxide Level 15 mmol/L (21-32) Anion Gap 19 (6-14) Blood Urea Nitrogen 99 mg/dL (8-26) Creatinine 3.1 mg/dL (0.7-1.3) Estimated GFR (Cockcroft-Gault) 23.1 Glucose Level 82 mg/dL (70-99) Calcium Level 7.9 mg/dL (8.5-10.1) Glucose (Fingerstick) 82 mg/dL (70-99) Results All relevant outside records, renal labs, imaging studies, telemetry/EKG's were reviewed. Justicifation of Admission Dx: Justifications for Admission: Justification of Admission Dx: Yes DEXTER ULLOA MD Sep 17, 2020 09:18
--- NOTE | 2020-09-17 09:21 | PDOC ---
PROGRESS NOTES Date of Service DATE: 09/17/20 TIME: 09:19 Assessment Problems Medical Problems: (1) CHF (congestive heart failure) Status: Acute Chronic right subdural hematoma Dementia, metabolic encephalopathy Failed swallow test Multiple medical problems: pneumonia, heart failure, leukocytosis, questionable etiology, coronary artery disease, atrial fibrillation, anemia and thrombocytosis, on top of his diabetes and COPD Note normal B12 and TSH Plan No surgical treatment of subdural, holding anticoagulation and antiplatelet agents. Treat medical issues Follow up with me in 2 months, will repeat CT then; neurosurgery requesting a follow-up head CT in 1 week Await final family decision on goals of care. I spoke to son yesterday, I see Dr. Olivarez spoke to the yesterday Subjective none Objective Vital Signs Date Time Temp Pulse Resp B/P (MAP) Pulse Ox O2 Delivery O2 Flow Rate FiO2 09/17/20 07:00 97.9 98 24 84/36 (52) 97 Room Air 97.9 Intake and Output 09/17/20 07:00 Intake Total 1050 ml Balance 1050 ml Intake Oral 0 ml IV Total 1050 ml # Voids 3 PHYSICAL EXAM Alert, does not know date or location,won't tell me his name. Follows a few commands PERRL. EOMI. CN: no focal findings. Muscle tone: normal. Muscle strength: 4/5 DTR: 1+ Plantar reflex: Flexor Gait: not examined in bed. Sensory exam: no abnormal findings. No cerebellar signs elicited. Review of Relevant I have reviewed the following items tiffany (where applicable) has been applied. Labs Laboratory Tests Test 09/15/20 12:25 09/15/20 17:30 09/15/20 20:33 09/16/20 00:53 Glucose (Fingerstick) 137 mg/dL (70-99) 86 mg/dL (70-99) 91 mg/dL (70-99) 84 mg/dL (70-99) Test 09/16/20 05:55 09/16/20 08:35 09/16/20 12:20 09/16/20 13:07 White Blood Count 50.4 x10^3/uL (4.0-11.0) Red Blood Count 3.42 x10^6/uL (4.30-5.70) Hemoglobin 9.2 g/dL (13.0-17.5) Hematocrit 30.4 % (39.0-53.0) Mean Corpuscular Volume 89 fL (79-100) Mean Corpuscular Hemoglobin 27 pg (25-35) Mean Corpuscular Hemoglobin Concent 30 g/dL (31-37) Red Cell Distribution Width 24.8 % (11.5-14.5) Platelet Count 275 x10^3/uL (140-400) Neutrophils (%) (Auto) 92 % (31-73) Lymphocytes (%) (Auto) 3 % (24-48) Monocytes (%) (Auto) 1 % (0-9) Eosinophils (%) (Auto) 0 % (0-3) Basophils (%) (Auto) 4 % (0-3) Neutrophils # (Auto) 46.3 x10^3/uL (1.8-7.7) Lymphocytes # (Auto) 1.5 x10^3/uL (1.0-4.8) Monocytes # (Auto) 0.5 x10^3/uL (0.0-1.1) Eosinophils # (Auto) 0.2 x10^3/uL (0.0-0.7) Basophils # (Auto) 2.0 x10^3/uL (0.0-0.2) Sodium Level 142 mmol/L (136-145) Potassium Level 3.9 mmol/L (3.5-5.1) Chloride Level 106 mmol/L (98-107) Carbon Dioxide Level 17 mmol/L (21-32) Anion Gap 19 (6-14) Blood Urea Nitrogen 85 mg/dL (8-26) Creatinine 2.5 mg/dL (0.7-1.3) Estimated GFR (Cockcroft-Gault) 29.6 Glucose Level 69 mg/dL (70-99) Calcium Level 8.3 mg/dL (8.5-10.1) Glucose (Fingerstick) 86 mg/dL (70-99) 57 mg/dL (70-99) 90 mg/dL (70-99) Test 09/16/20 17:13 09/16/20 20:13 09/17/20 06:35 09/17/20 07:38 Glucose (Fingerstick) 91 mg/dL (70-99) 82 mg/dL (70-99) 82 mg/dL (70-99) White Blood Count 55.0 x10^3/uL (4.0-11.0) Red Blood Count 3.55 x10^6/uL (4.30-5.70) Hemoglobin 9.6 g/dL (13.0-17.5) Hematocrit 31.4 % (39.0-53.0) Mean Corpuscular Volume 89 fL (79-100) Mean Corpuscular Hemoglobin 27 pg (25-35) Mean Corpuscular Hemoglobin Concent 31 g/dL (31-37) Red Cell Distribution Width 25.7 % (11.5-14.5) Platelet Count 267 x10^3/uL (140-400) Neutrophils (%) (Auto) 95 % (31-73) Lymphocytes (%) (Auto) 2 % (24-48) Monocytes (%) (Auto) 1 % (0-9) Eosinophils (%) (Auto) 1 % (0-3) Basophils (%) (Auto) 1 % (0-3) Neutrophils # (Auto) 52.2 x10^3/uL (1.8-7.7) Lymphocytes # (Auto) 1.3 x10^3/uL (1.0-4.8) Monocytes # (Auto) 0.4 x10^3/uL (0.0-1.1) Eosinophils # (Auto) 0.4 x10^3/uL (0.0-0.7) Basophils # (Auto) 0.7 x10^3/uL (0.0-0.2) Sodium Level 142 mmol/L (136-145) Potassium Level 4.2 mmol/L (3.5-5.1) Chloride Level 108 mmol/L (98-107) Carbon Dioxide Level 15 mmol/L (21-32) Anion Gap 19 (6-14) Blood Urea Nitrogen 99 mg/dL (8-26) Creatinine 3.1 mg/dL (0.7-1.3) Estimated GFR (Cockcroft-Gault) 23.1 Glucose Level 82 mg/dL (70-99) Calcium Level 7.9 mg/dL (8.5-10.1) Laboratory Tests Test 09/16/20 12:20 09/16/20 13:07 09/16/20 17:13 09/16/20 20:13 Glucose (Fingerstick) 57 mg/dL (70-99) 90 mg/dL (70-99) 91 mg/dL (70-99) 82 mg/dL (70-99) Test 09/17/20 06:35 09/17/20 07:38 White Blood Count 55.0 x10^3/uL (4.0-11.0) Red Blood Count 3.55 x10^6/uL (4.30-5.70) Hemoglobin 9.6 g/dL (13.0-17.5) Hematocrit 31.4 % (39.0-53.0) Mean Corpuscular Volume 89 fL (79-100) Mean Corpuscular Hemoglobin 27 pg (25-35) Mean Corpuscular Hemoglobin Concent 31 g/dL (31-37) Red Cell Distribution Width 25.7 % (11.5-14.5) Platelet Count 267 x10^3/uL (140-400) Neutrophils (%) (Auto) 95 % (31-73) Lymphocytes (%) (Auto) 2 % (24-48) Monocytes (%) (Auto) 1 % (0-9) Eosinophils (%) (Auto) 1 % (0-3) Basophils (%) (Auto) 1 % (0-3) Neutrophils # (Auto) 52.2 x10^3/uL (1.8-7.7) Lymphocytes # (Auto) 1.3 x10^3/uL (1.0-4.8) Monocytes # (Auto) 0.4 x10^3/uL (0.0-1.1) Eosinophils # (Auto) 0.4 x10^3/uL (0.0-0.7) Basophils # (Auto) 0.7 x10^3/uL (0.0-0.2) Sodium Level 142 mmol/L (136-145) Potassium Level 4.2 mmol/L (3.5-5.1) Chloride Level 108 mmol/L (98-107) Carbon Dioxide Level 15 mmol/L (21-32) Anion Gap 19 (6-14) Blood Urea Nitrogen 99 mg/dL (8-26) Creatinine 3.1 mg/dL (0.7-1.3) Estimated GFR (Cockcroft-Gault) 23.1 Glucose Level 82 mg/dL (70-99) Calcium Level 7.9 mg/dL (8.5-10.1) Glucose (Fingerstick) 82 mg/dL (70-99) Microbiology 09/11/20 Blood Culture - Final, Complete NO GROWTH AFTER 5 DAYS Medications Current Medications Furosemide (Lasix) 40 mg 1X ONCE IVP Last administered on 09/03/20at 21:07; Start 09/03/20 at 21:00; Stop 09/03/20 at 21:01; Status DC Piperacillin Sod/ Tazobactam Sod 3.375 gm/Sodium Chloride 50 ml @ 100 mls/hr 1X ONCE IV Last administered on 09/03/20at 21:08; Start 09/03/20 at 21:00; Stop 09/03/20 at 21:29; Status DC Ondansetron HCl (Zofran) 4 mg PRN Q8HRS PRN IV NAUSEA/VOMITING; Start 09/03/20 at 21:00; Stop 09/04/20 at 20:59; Status DC Morphine Sulfate (Morphine Sulfate) 2 mg PRN Q2HR PRN IV PAIN; Start 09/03/20 at 21:00; Stop 09/04/20 at 20:59; Status DC Acetaminophen (Tylenol) 650 mg PRN Q4HRS PRN PO FEVER > 100.3'F; Start 09/03/20 at 21:00; Stop 09/04/20 at 20:59; Status DC Ascorbic Acid (Vitamin C) 250 mg DAILY PO Last administered on 09/14/20at 08:48; Start 09/04/20 at 09:00 Aspirin (Aspirin Chewable) 81 mg BID PO Last administered on 09/12/20at 21:09; Start 09/04/20 at 09:00; Stop 09/13/20 at 09:28; Status DC Atorvastatin Calcium (Lipitor) 40 mg DAILY PO Last administered on 09/14/20at 08:48; Start 09/04/20 at 09:00 Bumetanide (Bumex) 1 mg BID92 PO ; Start 09/04/20 at 09:00; Stop 09/04/20 at 07:53; Status DC Digoxin (Lanoxin) 125 mcg DAILY PO ; Start 09/04/20 at 09:00; Stop 09/04/20 at 07:47; Status DC Docusate Sodium (Colace) 100 mg TID PO Last administered on 09/13/20at 10:58; Start 09/04/20 at 09:00 Acetaminophen/ Hydrocodone Bitart (Lortab 5/325) 1 tab PRN Q6HRS PRN PO PAIN Last administered on 09/14/20 18:23; Start 09/03/20 at 22:15 Metoprolol Tartrate (Lopressor) 100 mg DAILY PO ; Start 09/04/20 at 09:00; Stop 09/04/20 at 07:29; Status DC Warfarin Sodium (Coumadin Per Pharmacy) 1 each PRN DAILY PRN MC SEE COMMENTS Last administered on 09/13/20 09:06; Start 09/03/20 at 22:15; Stop 09/13/20 at 09:28; Status DC Piperacillin Sod/ Tazobactam Sod (Zosyn Per Pharmacy) 1 each PRN DAILY PRN MC SEE COMMENTS; Start 09/03/20 at 22:15; Status Cancel Albuterol/ Ipratropium (Duoneb) 3 ml RTQID NEB Last administered on 09/10/20at 20:11; Start 09/04/20 at 08:00; Stop 09/12/20 at 08:01; Status DC Prednisone (Prednisone) 40 mg 1X ONCE PO Last administered on 09/03/20at 22:41; Start 09/03/20 at 22:15; Stop 09/03/20 at 22:21; Status DC Insulin Human Lispro (HumaLOG) 0-7 UNITS TIDWMEALS SQ Last administered on 09/04/20at 12:32; Start 09/04/20 at 08:00 Dextrose (Dextrose 50%-Water Syringe) 12.5 gm PRN Q15MIN PRN IV SEE COMMENTS Last administered on 09/16/20at 12:34; Start 09/03/20 at 22:15 Piperacillin Sod/ Tazobactam Sod 3.375 gm/Sodium Chloride 50 ml @ 100 mls/hr Q6HRS IV Last administered on 09/10/20 05:09; Start 09/04/20 at 06:00; Stop 09/10/20 at 11:42; Status DC Warfarin Sodium (Coumadin - No Dose Today) 1 each 1X WARF ONCE MC Last administered on 09/04/20at 16:00; Start 09/04/20 at 16:00; Stop 09/04/20 at 16:01; Status DC Bumetanide (Bumex) 2.5 mg BID92 IV Last administered on 09/04/20at 15:23; Start 09/04/20 at 09:00; Stop 09/05/20 at 07:46; Status DC Lactobacillus Rhamnosus (Culturelle) 1 cap BID PO Last administered on 09/14/20at 21:06; Start 09/04/20 at 21:00 Tamsulosin HCl (Flomax) 0.4 mg QHS PO Last administered on 09/14/20at 21:06; Start 09/05/20 at 21:00 Bumetanide (Bumex) 1 mg BID92 IV Last administered on 09/15/20at 14:12; Start 09/05/20 at 09:00; Stop 09/16/20 at 17:36; Status DC Potassium Bicarbonate (Potassium Effervescent Tablet) 40 meq 1X ONCE PO Last administered on 09/05/20at 09:06; Start 09/05/20 at 08:00; Stop 09/05/20 at 08:01; Status DC Warfarin Sodium (Coumadin - No Dose Today) 1 each 1X WARF ONCE MC Last administered on 09/05/20at 15:58; Start 09/05/20 at 16:00; Stop 09/05/20 at 16:01; Status DC Warfarin Sodium (Coumadin - No Dose Today) 1 each 1X WARF ONCE MC Last administered on 09/06/20at 16:00; Start 09/06/20 at 16:00; Stop 09/06/20 at 16:01; Status DC Warfarin Sodium (Coumadin - No Dose Today) 1 each 1X WARF ONCE MC ; Start 09/07/20 at 16:00; Stop 09/07/20 at 16:01; Status DC Bisacodyl (Dulcolax Supp) 10 mg 1X ONCE AK ; Start 09/07/20 at 13:00; Stop 09/07/20 at 18:32; Status DC Bisacodyl (Dulcolax Supp) 10 mg PRN DAILY PRN [place] CONSTIPATION Last administered on 09/08/20at 08:29; Start 09/07/20 at 18:45 Warfarin Sodium (Coumadin - No Dose Today) 1 each 1X WARF ONCE MC ; Start 09/08/20 at 16:00; Stop 09/08/20 at 16:01; Status Cancel Warfarin Sodium (Coumadin) 4 mg 1X WARF ONCE PO Last administered on 09/08/20at 17:29; Start 09/08/20 at 16:00; Stop 09/08/20 at 16:01; Status DC Warfarin Sodium (Coumadin) 4 mg 1X WARF ONCE PO Last administered on 09/09/20at 16:53; Start 09/09/20 at 16:00; Stop 09/09/20 at 16:01; Status DC Potassium Chloride (Klor-Con) 20 meq 1X ONCE PO Last administered on 09/09/20at 09:32; Start 09/09/20 at 10:00; Stop 09/09/20 at 10:01; Status DC Linezolid (Zyvox) 600 mg BID PO Last administered on 09/14/20at 21:06; Start 09/09/20 at 12:00; Stop 09/15/20 at 09:56; Status DC Warfarin Sodium (Coumadin) 4 mg 1X WARF ONCE PO Last administered on 09/10/20at 16:47; Start 09/10/20 at 16:00; Stop 09/10/20 at 16:01; Status DC Meropenem 500 mg/ Sodium Chloride 50 ml @ 100 mls/hr Q8HRS IV Last administered on 09/16/20at 05:24; Start 09/10/20 at 14:00; Stop 09/16/20 at 09:06; Status DC Furosemide (Lasix) 20 mg DAILY IVP ; Start 09/11/20 at 09:00; Status UNV Phenyleph/Shark Oil/Min Oil/Petrol (Preparation H) 1 mihaela PRN QID PRN RC RECTAL PAIN; Start 09/10/20 at 19:15 Micafungin Sodium 100 mg/Dextrose 100 ml @ 100 mls/hr Q24H IV Last administered on 09/15/20at 10:14; Start 09/11/20 at 10:00; Stop 09/16/20 at 09:06; Status DC Warfarin Sodium (Coumadin) 4 mg 1X WARF ONCE PO ; Start 09/11/20 at 16:00; Stop 09/11/20 at 16:01; Status DC Dextrose 1,000 ml @ 25 mls/hr Q24H IV Last administered on 09/11/20at 20:29; Start 09/11/20 at 19:15; Stop 09/16/20 at 18:28; Status DC Warfarin Sodium (Coumadin) 3 mg 1X WARF ONCE PO ; Start 09/12/20 at 16:00; Stop 09/13/20 at 09:28; Status DC Albuterol Sulfate (Ventolin Neb Soln) 2.5 mg PRN Q6HRS PRN NEB SHORTNESS OF BREATH; Start 09/12/20 at 08:15 Warfarin Sodium (Coumadin) 4 mg 1X WARF ONCE PO ; Start 09/13/20 at 16:00; Stop 09/13/20 at 09:28; Status DC Phytonadione 10 mg/Dextrose 51 ml @ 102 mls/hr 1X ONCE IV Last administered on 09/14/20at 13:56; Start 09/14/20 at 14:00; Stop 09/14/20 at 14:29; Status DC Linezolid/Dextrose 300 ml @ 300 mls/hr Q12HR IV Last administered on 09/15/20at 20:17; Start 09/15/20 at 11:00; Stop 09/16/20 at 09:06; Status DC Morphine Sulfate (Morphine Sulfate) 2 mg PRN Q4HRS PRN IV PAIN Last administered on 09/15/20at 11:37; Start 09/15/20 at 11:30; Stop 09/15/20 at 14:01; Status DC Morphine Sulfate (Morphine Sulfate) 2 mg PRN Q2HR PRN IV PAIN Last administered on 09/15/20at 20:11; Start 09/15/20 at 14:15 Albumin Human 100 ml @ 100 mls/hr 1X ONCE IV Last administered on 09/15/20at 22:19; Start 09/15/20 at 22:15; Stop 09/15/20 at 23:14; Status DC Haloperidol Lactate (Haldol Inj) 2 mg 1X ONCE IVP Last administered on 09/15/20at 22:20; Start 09/15/20 at 22:15; Stop 09/15/20 at 22:16; Status DC Dextrose/Sodium Chloride 1,000 ml @ 50 mls/hr Q20H IV Last administered on 09/17/20at 06:35; Start 09/16/20 at 12:30 Active Scripts Active [place] 5-325 Tablet (Acetaminophen/Hydrocodone Bitart) 1 Each Tablet 7.5 Mg PO PRN Q6HRS PRN 6 Days LAST DOSE GIVEN: Reported Warfarin Sodium 2 Mg Tablet 4 Mg PO Warfarin Sodium 2 Mg Tablet 6 Mg PO QMTH Bumetanide 1 Mg Tablet 1 Mg PO BID Colace (Docusate Sodium) 100 Mg Capsule 1 Cap PO TID Metamucil Powder (Psyllium Seed (with Sugar)) 575 Gm Powder 575 Gm PO DAILY Atorvastatin Calcium 40 Mg Tablet 1 Tab PO DAILY Metoprolol Tartrate 100 Mg Tablet 100 Mg PO DAILY Tamsulosin Hcl 0.4 Mg Cap.er.24h 0.4 Mg PO HS DAILY Vitamin C (Ascorbic Acid) 500 Mg Tablet 250 Mg PO DAILY Aspirin 81 Mg Tab.chew 81 Mg PO BID Lanoxin (Digoxin) 125 Mcg Tablet 125 Mcg PO DAILY Vitals/I & O Vital Sign - Last 24 Hours 09/16/20 09/16/20 09/16/20 09/16/20 11:00 15:00 19:00 20:00 Temp 99.5 98.8 99.1 99.5 98.8 99.1 Pulse 107 114 117 Resp 18 18 25 B/P (MAP) 99/53 (68) 90/44 (59) 81/34 (50) Pulse Ox 94 98 94 O2 Delivery Room Air Room Air Room Air Room Air 09/16/20 09/17/20 09/17/20 23:00 02:48 07:00 Temp 98.3 100.7 97.9 98.3 100.7 97.9 Pulse 119 113 98 Resp 20 20 24 B/P (MAP) 71/41 (51) 94/43 (60) 84/36 (52) Pulse Ox 94 94 97 O2 Delivery Room Air Room Air Room Air Intake and Output 09/16/20 09/16/20 09/17/20 15:00 23:00 07:00 Intake Total 50 ml 0 ml 1000 ml Balance 50 ml 0 ml 1000 ml Justicifation of Admission Dx: Justifications for Admission: Justification of Admission Dx: Yes LEENA BRICE MD Sep 17, 2020 09:21
--- NOTE | 2020-09-17 10:04 | PDOC ---
[employer] PROGRESS NOTE Date of Service DOS: DATE: 09/17/20 TIME: 09:59 Chief Complaint Chief Complaint impression Acute on chronic combined systolic and diastolic heart failure. We will diurese with intravenous Bumex. 2D echo in September 2019 showed LVEF 40%. Coronary artery disease: Patient has known chronic total occlusion of LAD with collaterals, presently stable and chest pain-free. Lexiscan nuclear stress test in March 2020 showed large inferior infarct without any significant ischemia. Continue current secondary prevention measures. Sick sinus syndrome s/p permanent pacemaker implantation with more recent generator change. Recent device check showed normal function. He denied any syncope or near syncope. Permanent atrial fibrillation: Telemetry showed demand pacing. Patient on warfarin for stroke prophylaxis. Check PT/INR. Hypertension - Controlled. Will back off on his BB. He is actually on 100mg metoprolol tartrate Hyperlipidemia - Continue statin Diabetes mellitus type 2 - diet controlled, A1c previously 5.8 Severe Protein calorie malnutrition - severe given his edema and albumin. 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 Normal LV systolic function. EF 60% plan FEN - Cardiac ADA diet PPX - warfarin CODE - FULL Dispo - inpatient CVC for CHF exacerbation Hyperlipidemia - Continue statin Diabetes mellitus type 2 - diet controlled, A1c previously 5.8 Severe Protein calorie malnutrition - severe given his edema and albumin. tician to see D/W RN Defer to pulmonology regarding management of acute hypoxic respiratory failure and antibiotics ONCOLOGY plan on seeing patient in follow-up as outpatient to reassess CBC and discussed results of BCR ABL FISH and JAK2 mutation testing ID CONSULT 37 min pt exam, chart review, > 50% of time spent with exam, chart review, pt care coordination Worsening interstitial changes throughout both lungs, with worsening perihilar consolidation. Findings may reflect progressive interstitial pulmonary edema or infection. CXR 6- Continue Merrem ( 09/10) and Zyvox,was on zosyn CONTINUE micafungin History of Present Illness History of Present Illness Mr Rivero is an 89yo M w/ PMHx DM2, HLD, HTN, afib, SSS s/p PPM, CAD, chronic systolic CHF who presented to ED c/o for weakness and dyspnea. Also complains of dyspnea worsening over weeks, with a few days of noted LE edema is worse with cough in the morning that is productive of white sputum. he has cough at times, He denied any chest pain, palpitations or syncope. Given 1 dose iv lasix in ED 40mg, < 500 uop after, still feeling short of breath. He follows with Dr. Santoyo and has been recently changed to Bumex last month. Chest radiograph with interstitial edema. Labs with WBC 27.3, Hb 10.3, platelets 454, NA 145, K4.7, BUN 58, CR 2.1, INR 3.2 TSH 5.5, digoxin level 2.2, albumin 2.7, bilirubin 2.2, AST 56 ALT 12 alkaline phosphatase 138 NT proBNP 31,348 Admitted for further treatment. 09/04: Afebrile. WBC still high. Reasonably good urine output. A little confused Febrile. 1.3 L urine output. Still with very swollen lower extremities. No chest pain little bit short of breath. Not on O2 today. 09-06 Still with very swollen lower extremities. No chest pain little bit short of breath. Acute on chronic combined systolic and diastolic heart failure. We will diurese with intravenous Bumex. 2D echo in September 2019 showed LVEF 40%. Coronary artery disease: Patient has known chronic total occlusion of LAD with collaterals, presently stable and chest pain-free. Lexiscan nuclear stress test in March 2020 showed large inferior infarct without any significant ischemia. Continue current secondary prevention measures. Sick sinus syndrome s/p permanent pacemaker implantation with more recent generator change. Recent device check showed normal function. He denied any syncope or near syncope. Permanent atrial fibrillation: Telemetry showed demand pacing. Patient on warfarin for stroke prophylaxis. Check PT/INR. Hypertension - Controlled. Will back off on his BB. He is actually on 100mg metoprolol tartrate Hyperlipidemia - Continue statin Diabetes mellitus type 2 - diet controlled, A1c previously 5.8 Severe Protein calorie malnutrition - severe given his edema and albumin. Broadband Engineer to see D/W RN 09/07 CR 2.2 LESS swollen lower extremities. No chest pain little bit short of breath. Acute on chronic combined systolic and diastolic heart failure. We will diurese with intravenous Bumex. 2D echo in September 2019 showed LVEF 40%. Coronary artery disease: Patient has known chronic total occlusion of LAD with collaterals, presently stable and chest pain-free. Lexiscan nuclear stress test in March 2020 showed large inferior infarct without any significant ischemia. Continue current secondary prevention measures. Sick sinus syndrome s/p permanent pacemaker implantation with more recent generator change. Recent device check showed normal function. He denied any syncope or near syncope. Permanent atrial fibrillation: Telemetry showed demand pacing. Patient on warfarin for stroke prophylaxis. Check PT/INR. Hypertension - Controlled. Will back off on his BB. He is actually on 100mg metoprolol tartrate Hyperlipidemia - Continue statin Diabetes mellitus type 2 - diet controlled, A1c previously 5.8 Severe Protein calorie malnutrition - severe given his edema and albumin. Broadband Engineer to see D/W RN 09/08 CR 2.0 wbc 30.3 CAD; catheterization 08/2018 with ELECTRICAL [employer] RADIO MECHANIC of LAD with collaterals, which is unchanged from previous cath in 2013. clinically stable, CP free. 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 Permanent AFIB; rate controlled with BB. on warfarin for stroke prevention. 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 No chest pain little bit short of breath. Acute on chronic combined systolic and diastolic heart failure. We will diurese with intravenous Bumex. 2D echo in September 2019 showed LVEF 40%. Coronary artery disease: Patient has known chronic total occlusion of LAD with collaterals, presently stable and chest pain-free. Lexiscan nuclear stress test in March 2020 showed large inferior infarct without any significant ischemia. Continue current secondary prevention measures. Sick sinus syndrome s/p permanent pacemaker implantation with more recent generator change. Recent device check showed normal function. He denied any syncope or near syncope. Permanent atrial fibrillation: Telemetry showed demand pacing. Patient on warfarin for stroke prophylaxis. Check PT/INR. Hypertension - Controlled. Will back off on his BB. He is actually on 100mg metoprolol tartrate Hyperlipidemia - Continue statin Diabetes mellitus type 2 - diet controlled, A1c previously 5.8 Severe Protein calorie malnutrition - severe given his edema and albumin. Broadband Engineer to see D/W RN 37 min pt exam, chart review, > 50% of time spent with exam, chart review, pt care coordination 09/09 CR 2.0 wbc 30.3 CAD; catheterization 08/2018 with ELECTRICAL AND RADIO MECHANIC of LAD with collaterals, which is unchanged from previous cath in 2013. clinically stable, CP free. 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 Permanent AFIB; rate controlled with BB. on warfarin for stroke prevention. 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 No chest pain little bit short of breath. Acute on chronic combined systolic and diastolic heart failure. We will diurese with intravenous Bumex. 2D echo in September 2019 showed LVEF 40%. Coronary artery disease: Patient has known chronic total occlusion of LAD with c ollaterals, presently stable and chest pain-free. Lexiscan nuclear stress test in March 2020 showed large inferior infarct without any significant ischemia. Continue current secondary prevention measures. Sick sinus syndrome s/p permanent pacemaker implantation with more recent generator change. Recent device check showed normal function. He denied any syncope or near syncope. Permanent atrial fibrillation: Telemetry showed demand pacing. Patient on warfarin for stroke prophylaxis. Check PT/INR. Hypertension - Controlled. Will back off on his BB. 100mg metoprolol tartrate Hyperlipidemia - Continue statin Diabetes mellitus type 2 - diet controlled, A1c previously 5.8 Severe Protein calorie malnutrition - severe given his edema and albumin. Broadband Engineer to see D/W RN Defer to pulmonology regarding management of acute hypoxic respiratory failure and antibiotics ONCOLOGY plan on seeing patient in follow-up as outpatient to reassess CBC and discussed results of BCR ABL FISH and JAK2 mutation testing ID CONSULT 36 min pt exam, chart review, > 50% of time spent with exam, chart review, pt care coordination Worsening interstitial changes throughout both lungs, with worsening perihilar consolidation. Findings may reflect progressive interstitial pulmonary edema or infection. CXR 09-15 long discussion with family, , 2 sons they are not sure he desires a BM BX , will cont to monitor CR 2.0 wbc 31 CAD; catheterization 08/2018 with ELECTRICAL AND RADIO MECHANIC of LAD with collaterals, which is unchanged from previous cath in 2013. clinically stable, CP free. 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 Permanent AFIB; rate controlled with BB. on warfarin for stroke prevention. 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 No chest pain little bit short of breath. Acute on chronic combined systolic and diastolic heart failure. We will diurese with intravenous Bumex. 2D echo in September 2019 showed LVEF 40%. Coronary artery disease: Patient has known chronic total occlusion of LAD with collaterals, presently stable and chest pain-free. Lexiscan nuclear stress test in March 2020 showed large inferior infarct without any significant ischemia. Continue current secondary prevention measures. Sick sinus syndrome s/p permanent pacemaker implantation with more recent gen erator change. Recent device check showed normal function. He denied any syncope or near syncope. Permanent atrial fibrillation: Telemetry showed demand pacing. Patient on warfarin for stroke prophylaxis. Check PT/INR. Hypertension - Controlled. Will back off on his BB. 100mg metoprolol tartrate Hyperlipidemia - Continue statin Diabetes mellitus type 2 - diet controlled, A1c previously 5.8 Severe Protein calorie malnutrition - severe given his edema and albumin. Broadband Engineer to see D/W RN Defer to pulmonology regarding management of acute hypoxic respiratory failure and antibiotics ONCOLOGY plan on seeing patient in follow-up as outpatient to reassess CBC and discussed results of BCR ABL FISH and JAK2 mutation testing ID CONSULT 38 min pt exam, chart review, > 50% of time spent with exam, chart review, pt care coordination Worsening interstitial changes throughout both lungs, with worsening perihilar consolidation. Findings may reflect progressive interstitial pulmonary edema or infection. CXR -09/11 long discussion with family, , 2 sons they are not sure he desires a BM BX , will cont to monitor CR 2.0 wbc 31 CAD; catheterization 08/2018 with ELECTRICAL AND RADIO MECHANIC of LAD with collaterals, which is unchanged from previous cath in 2013. clinically stable, CP free. 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 Permanent AFIB; rate controlled with BB. on warfarin for stroke prevention. 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 No chest pain little bit short of breath. Acute on chronic combined systolic and diastolic heart failure. We will diurese with intravenous Bumex. 2D echo in September 2019 showed LVEF 40%. Coronary artery disease: Patient has known chronic total occlusion of LAD with collaterals, presently stable and chest pain-free. Lexiscan nuclear stress test in March 2020 showed large inferior infarct without any significant ischemia. Continue current secondary prevention measures. Sick sinus syndrome s/p permanent pacemaker implantation with more recent generator change. Recent device check showed normal function. He denied any syncope or near syncope. Permanent atrial fibrillation: Telemetry showed demand pacing. Patient on warfarin for stroke prophylaxis. Check PT/INR. Hypertension - Controlled. Will back off on his BB. 100mg metoprolol tartrate Hyperlipidemia - Continue statin Diabetes mellitus type 2 - diet controlled, A1c previously 5.8 Severe Protein calorie malnutrition - severe given his edema and albumin. Broadband Engineer to see D/W RN Defer to pulmonology regarding management of acute hypoxic respiratory failure and antibiotics ONCOLOGY plan on seeing patient in follow-up as outpatient to reassess CBC and discussed results of BCR ABL FISH and JAK2 mutation testing ID CONSULT 36 min pt exam, chart review, > 50% of time spent with exam, chart review, pt care coordination Worsening interstitial changes throughout both lungs, with worsening perihilar consolidation. Findings may reflect progressive interstitial pulmonary edema or infection. CXR 09-09 Continue Merrem ( 09/10) and Zyvox,was on zosyn add micafungin 09/12 long discussion with family, , 2 sons 09-11 they are not sure he desires a BM BX , will cont to monitor CR 2.0 wbc 31 CAD; catheterization 08/2018 with ELECTRICAL AND RADIO MECHANIC of LAD with collaterals, which is unchanged from previous cath in 2013. clinically stable, CP free. 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 Permanent AFIB; rate controlled with BB. on warfarin for stroke prevention. 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 No chest pain little bit short of breath. Acute on chronic combined systolic and diastolic heart failure. We will diurese with intravenous Bumex. 2D echo in September 2019 showed LVEF 40%. Coronary artery disease: Patient has known chronic total occlusion of LAD with collaterals, presently stable and chest pain-free. Lexiscan nuclear stress test in March 2020 showed large inferior infarct without any significant ischemia. Continue current secondary prevention measures. Sick sinus syndrome s/p permanent pacemaker implantation with more recent gene rator change. Recent device check showed normal function. He denied any syncope or near syncope. Permanent atrial fibrillation: Telemetry showed demand pacing. Patient on warfarin for stroke prophylaxis. Check PT/INR. Hypertension - Controlled. Will back off on his BB. 100mg metoprolol tartrate Hyperlipidemia - Continue statin Diabetes mellitus type 2 - diet controlled, A1c previously 5.8 Severe Protein calorie malnutrition - severe given his edema and albumin. Broadband Engineer to see D/W RN Defer to pulmonology regarding management of acute hypoxic respiratory failure and antibiotics ONCOLOGY plan on seeing patient in follow-up as outpatient to reassess CBC and discussed results of BCR ABL FISH and JAK2 mutation testing ID CONSULT 37 min pt exam, chart review, > 50% of time spent with exam, chart review, pt care coordination Worsening interstitial changes throughout both lungs, with worsening perihilar consolidation. Findings may reflect progressive interstitial pulmonary edema or infection. CXR 09-09 Continue Merrem ( 09/10) and Zyvox,was on zosyn CONTINUE micafungin 09/13 Afebrile overnight, currently breathing on room air. WBC 43.6 today. Chest x- ray showing left lower lobe pneumonia as possible source of leukocytosis. We will continue treatment with Zosyn, Zyvox, and micafungin. Repeat urinalysis and urine culture pending. Bilateral lower extremity ultrasounds negative for DVT. Discussed with (POOL), who is opting to defer outpatient bone marrow biopsy and further work-up for possible leukemia. She is preferring instead to proceed with medical management. Discussed with DPOA and son about CODE STATUS, they are currently undecided and will revisit this question at a later time. Charts, labs, imaging reviewed, and discussed with RN. 09/14 No acute events overnight, afebrile. Patient with no concerns today; no family is at bedside at the time of my evaluation. He was recommended to continue meropenem, Zyvox, and micafungin, per ID. CT head yesterday showed small to moderate subacute appearing right frontal subdural hematoma measuring 5 mm with rightward midline shift. Consult was placed to neurosurgery. Warfarin is being held and neurosurgery recommended CT head in 7 to [address] Nicholas, patient would benefit from some rehab at [facility] and we can repeat CT head in about a week's time. We will continue current treatment and plan for [facility] likely tomorrow or the next day. 09/15 Patient afebrile, no complaints today. I had lengthy discussion with over the phone about small to moderate subacute appearing right frontal subdural hematoma seen on CT head. Discussed with that I can no longer anticoagulate him due to this bleed, and she would like to discuss with his professor of food biochemistry about best options going forward given his history of atrial fibrillation. Had discussion with son at bedside about the likely diagnosis of leukemia but family does not want work-up with bone marrow biopsy, subdural hematoma seen on CT head, fluid accumulation in his bilateral legs and upper extremity, and concerns for aspiration risk. Plan still remains discharge to [facility] when stable. Will convert p.o. Zyvox to IV given aspiration risk. Consult placed to ST. Care time 30 minutes spent in review of labs, review of imaging, review of charts, discussion with , discussion with son, and discussion with cardiology IRRIGATIONIST. 09/16 Afebrile, no events overnight. I discussion with ID and hematology/oncology, in agreement that we can stop antibiotics as leukocytosis is likely secondary to myeloproliferative disorder which patient and family are not wanting treated. Had lengthy conversation with patient's (POOL) about his multiple comorbidities, which now include significant oropharyngeal dysphagia and n.p.o. status. is in agreement with foregoing further treatments and discharging patient to halfway. would like to speak with her children prior to making any decisions about PPN vs. PEG tube. Both and family are not ready for hospice or comfort care measures at this time. Total critical care time spent 30 minutes in review of labs, review of charts, discussion with , disc ussion with son, discussion with ID. 09/17 No acute events overnight, afebrile. Had lengthy discussion with son and certified social workers in health care about hospice (with patient's and patient's son until phone conference). Family made the decision to pursue [facility]' hospice vs. [facility] hospice, referrals been placed. Critical care time Charts, labs, discussion with family, discussion with certified social workers in health care. Vitals/I&O Vitals/I&O: Vital Signs Date Time Temp Pulse Resp B/P (MAP) Pulse Ox O2 Delivery O2 Flow Rate FiO2 09/17/20 07:00 97.9 98 24 84/36 (52) 97 Room Air 97.9 I & O 09/16/20 09/16/20 09/17/20 15:00 23:00 07:00 Intake Total 50 ml 0 ml 1000 ml Balance 50 ml 0 ml 1000 ml Physical Exam Physical Exam: GENERAL: CONFUSED male, not in distress distress. HEENT: Normocephalic, atraumatic. Oral mucosa moist. NECK: Supple. LUNGS: Mild crackles. HEART: S1, S2. Pacemaker without signs of complication. ABDOMEN: Soft, nontender, and nondistended. EXTREMITIES: No cyanosis bilateral lower extremity swelling present. NO Calf tenderness present left lower extremity MSK changes suggestive of DJD, pain in left knee, no effusion DERMATOLOGIC: Warm, dry. No generalized rash. NEUROLOGIC: Alert, awake, answers questions appropriately. PSYCHIATRIC: Calm and cooperative. General: No acute distress Heart: Normal S1, Normal S2, Other (Heart rate irregular) Lungs: Crackles (bases ) Abdomen: Normal bowel sounds, Soft, No tenderness Extremities: Other (2+ pitting edema) Labs Labs: Laboratory Tests Test 09/16/20 12:20 09/16/20 13:07 09/16/20 17:13 09/16/20 20:13 Glucose (Fingerstick) 57 mg/dL (70-99) 90 mg/dL (70-99) 91 mg/dL (70-99) 82 mg/dL (70-99) Test 09/17/20 06:35 09/17/20 07:38 White Blood Count 55.0 x10^3/uL (4.0-11.0) Red Blood Count 3.55 x10^6/uL (4.30-5.70) Hemoglobin 9.6 g/dL (13.0-17.5) Hematocrit 31.4 % (39.0-53.0) Mean Corpuscular Volume 89 fL (79-100) Mean Corpuscular Hemoglobin 27 pg (25-35) Mean Corpuscular Hemoglobin Concent 31 g/dL (31-37) Red Cell Distribution Width 25.7 % (11.5-14.5) Platelet Count 267 x10^3/uL (140-400) Neutrophils (%) (Auto) 95 % (31-73) Lymphocytes (%) (Auto) 2 % (24-48) Monocytes (%) (Auto) 1 % (0-9) Eosinophils (%) (Auto) 1 % (0-3) Basophils (%) (Auto) 1 % (0-3) Neutrophils # (Auto) 52.2 x10^3/uL (1.8-7.7) Lymphocytes # (Auto) 1.3 x10^3/uL (1.0-4.8) Monocytes # (Auto) 0.4 x10^3/uL (0.0-1.1) Eosinophils # (Auto) 0.4 x10^3/uL (0.0-0.7) Basophils # (Auto) 0.7 x10^3/uL (0.0-0.2) Sodium Level 142 mmol/L (136-145) Potassium Level 4.2 mmol/L (3.5-5.1) Chloride Level 108 mmol/L (98-107) Carbon Dioxide Level 15 mmol/L (21-32) Anion Gap 19 (6-14) Blood Urea Nitrogen 99 mg/dL (8-26) Creatinine 3.1 mg/dL (0.7-1.3) Estimated GFR (Cockcroft-Gault) 23.1 Glucose Level 82 mg/dL (70-99) Calcium Level 7.9 mg/dL (8.5-10.1) Glucose (Fingerstick) 82 mg/dL (70-99) Assessment and Plan Assessmemt and Plan Problems Medical Problems: (1) CHF (congestive heart failure) Status: Acute Comment Review of Relevant I have reviewed the following items tiffany (where applicable) has been applied. Medications: Current Medications Medications (Trade) Dose Ordered Sig/Rakesh Route PRN Reason Start Time Stop Time Status Last Admin Dose Admin Dextrose/Sodium Chloride 1,000 ml @ 50 mls/hr Q20H IV 09/16/20 12:30 09/17/20 06:35 Justifications for Admission Other Justification ANEESH PRABHAKAR MD Sep 17, 2020 10:04
[2020-09-17 11:00] VITALS: BP 95/58
--- NOTE | 2020-09-17 11:22 | PDOC ---
Infectious Disease Note Subjective Subjective Patient is awake feeling okay ROS ROS No nausea vomiting diarrhea chest pain shortness of breath Vital Sign Vital Signs Vital Signs Date Time Temp Pulse Resp B/P (MAP) Pulse Ox O2 Delivery O2 Flow Rate FiO2 09/17/20 07:00 97.9 98 24 84/36 (52) 97 Room Air 97.9 Physical Exam PHYSICAL EXAM GENERAL: CONFUSED male, not in distress distress. HEENT: Normocephalic, atraumatic. Oral mucosa moist. NECK: Supple. LUNGS: Mild crackles. HEART: S1, S2. Pacemaker without signs of complication. ABDOMEN: Soft, nontender, and nondistended. EXTREMITIES: No cyanosis bilateral lower extremity swelling present. NO Calf tenderness present left lower extremity MSK changes suggestive of DJD, pain in left knee, no effusion DERMATOLOGIC: Warm, dry. No generalized rash. NEUROLOGIC: Alert, awake, answers questions appropriately. PSYCHIATRIC: Calm and cooperative. Labs Lab Laboratory Tests Test 09/16/20 12:20 09/16/20 13:07 09/16/20 17:13 09/16/20 20:13 Glucose (Fingerstick) 57 mg/dL (70-99) 90 mg/dL (70-99) 91 mg/dL (70-99) 82 mg/dL (70-99) Test 09/17/20 06:35 09/17/20 07:38 White Blood Count 55.0 x10^3/uL (4.0-11.0) Red Blood Count 3.55 x10^6/uL (4.30-5.70) Hemoglobin 9.6 g/dL (13.0-17.5) Hematocrit 31.4 % (39.0-53.0) Mean Corpuscular Volume 89 fL (79-100) Mean Corpuscular Hemoglobin 27 pg (25-35) Mean Corpuscular Hemoglobin Concent 31 g/dL (31-37) Red Cell Distribution Width 25.7 % (11.5-14.5) Platelet Count 267 x10^3/uL (140-400) Neutrophils (%) (Auto) 95 % (31-73) Lymphocytes (%) (Auto) 2 % (24-48) Monocytes (%) (Auto) 1 % (0-9) Eosinophils (%) (Auto) 1 % (0-3) Basophils (%) (Auto) 1 % (0-3) Neutrophils # (Auto) 52.2 x10^3/uL (1.8-7.7) Lymphocytes # (Auto) 1.3 x10^3/uL (1.0-4.8) Monocytes # (Auto) 0.4 x10^3/uL (0.0-1.1) Eosinophils # (Auto) 0.4 x10^3/uL (0.0-0.7) Basophils # (Auto) 0.7 x10^3/uL (0.0-0.2) Sodium Level 142 mmol/L (136-145) Potassium Level 4.2 mmol/L (3.5-5.1) Chloride Level 108 mmol/L (98-107) Carbon Dioxide Level 15 mmol/L (21-32) Anion Gap 19 (6-14) Blood Urea Nitrogen 99 mg/dL (8-26) Creatinine 3.1 mg/dL (0.7-1.3) Estimated GFR (Cockcroft-Gault) 23.1 Glucose Level 82 mg/dL (70-99) Calcium Level 7.9 mg/dL (8.5-10.1) Glucose (Fingerstick) 82 mg/dL (70-99) Micro Microbiology 09/11/20 Blood Culture - Preliminary, Resulted NO GROWTH AFTER 1 DAY Objective Assessment Fever has improved 1. Leukocytosis, myeloproloferative disorder 2. Acute on chronic heart failure. 3. Coronary artery disease. 4. Permanent atrial fibrillation. 5. Diabetes. 6. Dysphagia. 7. Anemia and thrombocytosis. 8. Generalized debility. 9. Constipation 10.Lt knee pain ? gout 11. LLE pain US neg for DVT Plan Plan of Care pt cont to have fever, cont to have wbc worsening , d/w Oncology, he strongly feel this is myeloproliferative disorder , pt and son refuses for bone marrow biopsy despite broad coverage pt cont to have fever, likely B symptoms fro his blood disorder, cultures neg, and ct neg for any abscess or evidence for infection would change all antibiotics to po though he cannot take po/aspiration, may go to NH without antibiotics again d/w son, he wants his father to be comfortable d/w dr Olivarez, he is going to talk to pt's D/W RN prognosis poor need comfort care AUSTIN TIJERINA MD Sep 17, 2020 11:22
[2020-09-17 15:26] VITALS: BP 74/42
--- NOTE | 2020-09-17 16:06 | NUR ---
Orders received for discharge and readmission for in patient hospice. [facility] accepted patient.
== END 2020-09-17 16:03 | disposition hospice, inpatient (51) | DRG 177 ==
LOC: ER 19:08 → 2 NORTH 21:03
PROVIDERS: ADMIT Internal Medicine; ATTEND Internal Medicine
DX: J69.0 Pneumonitis due to inhalation of food and vomit (principal); I50.43 Acute on chronic combined systolic (congestive) and diastolic (congestive) heart failure; E43 Unspecified severe protein-calorie malnutrition; G93.41 Metabolic encephalopathy; I62.03 Nontraumatic chronic subdural hemorrhage; J96.00 Acute respiratory failure, unspecified whether with hypoxia or hypercapnia; N17.9 Acute kidney failure, unspecified; C94.6 Myelodysplastic disease, not elsewhere classified; I13.0 Hypertensive heart and chronic kidney disease with heart failure and stage 1 through stage 4 chronic kidney disease, or unspecified chronic kidney disease; I42.9 Cardiomyopathy, unspecified; I48.21 Permanent atrial fibrillation; J98.11 Atelectasis; D64.9 Anemia, unspecified; E11.22 Type 2 diabetes mellitus with diabetic chronic kidney disease; E78.00 Pure hypercholesterolemia, unspecified; E78.5 Hyperlipidemia, unspecified; E87.6 Hypokalemia; F03.90 Unspecified dementia, unspecified severity, without behavioral disturbance, psychotic disturbance, mood disturbance, and anxiety; G47.33 Obstructive sleep apnea (adult) (pediatric); I25.10 Atherosclerotic heart disease of native coronary artery without angina pectoris; I25.82 Chronic total occlusion of coronary artery; I27.21 Secondary pulmonary arterial hypertension; I27.29 Other secondary pulmonary hypertension; J43.9 Emphysema, unspecified; K59.00 Constipation, unspecified; M10.9 Gout, unspecified; M19.90 Unspecified osteoarthritis, unspecified site; N18.30 Chronic kidney disease, stage 3 unspecified; R13.12 Dysphagia, oropharyngeal phase; Z66 Do not resuscitate; Z79.01 Long term (current) use of anticoagulants; Z82.0 Family history of epilepsy and other diseases of the nervous system; Z82.49 Family history of ischemic heart disease and other diseases of the circulatory system; Z86.73 Personal history of transient ischemic attack (TIA), and cerebral infarction without residual deficits; Z87.891 Personal history of nicotine dependence; Z91.19 Patient's noncompliance with other medical treatment and regimen; Z91.81 History of falling; Z95.0 Presence of cardiac pacemaker; Z20.822 Contact with and (suspected) exposure to COVID-19; Z90.49 Acquired absence of other specified parts of digestive tract; Z68.26 Body mass index [BMI] 26.0-26.9, adult
CPT/HCPCS: 36415; 70450; 71045; 71250; 72100; 73564; 74176; 80048; 80053; 80069; 80162; 81001; 81270; 82525; 82565; 82607; 82668; 82728; 82962; 83010; 83520; 83540; 83550; 83615; 83735; 83880; 84100; 84145; 84165; 84443; 84484; 84550; 85007; 85025; 85027; 85045; 85610; 87040; 88374; 93005; 93971; 94640; 94760; 96365; 96375; J1630; J1815; J1940; J2020; J2185; J2248; J2270; J2543; J3430; J3490; J7042; J7060; J7512; P9046; U0003; U0005; 92610-GN; 97110-GO; 97530-GO; 97530-GP; 97535-GO; 99285-25; G0378

== ENCOUNTER → 2020-09-03 | Outpatient (CLI) | payer MEDICARE ==
[~2020-09-03] MED LIST changes: +BUME1TAB3 PO
--- NOTE | 2020-09-03 15:59 | KCIC ---
Noncontrast CT scan of the chest compared to similar study dated September 13, 2018 for right hilar promine nce, swollen bilateral lower extremities. Elevated creatinine. TECHNIQUE: Contiguous axial CT images are obtained from the thoracic inlet to the base of diaphragm. No IV contrast was a individual pension consultant. Sagittal and coronal reformations are evaluated. FINDINGS: COPD. Bovine arch. Defibrillator. Ectatic ascending aorta at 4.5 cm. Enlarged pulmonary art eries, likely due to pulmonary artery hypertension. Extensive coronary artery calcifications. Cardiac enlargement particularly right atrial and right ventricular. No suspicious mediastinal, hilar, or ax illary lymphadenopathy. Evaluation of hilar structures is limited somewhat by lack of IV contrast. Ce ntral airways are patent. Trace right pleural effusion. Some basilar interstitial thickening may repr esent atelectasis or fibrosis or early interstitial pulmonary edema. No areas of focal consolidation. No suspicious lung nodules or masses. Mild small subpleural-based nodules in the right upper lobe ar e all stable, likely from antecedent granulomatous disease. Trace amount of perihepatic ascites. Sple nomegaly. Mild heterogeneity of the marrow particularly involving the midthoracic vertebral bodies. T his is stable since 09/13/2018 and likely relates to osteopenia. IMPRESSION: 1. No suspicious lung nodules or masses. No definite suspicious mediastinal or hilar masses, though e valuation of the kash is somewhat limited by lack of IV contrast. There is pulmonary artery enlargeme nt bilaterally, which likely accounts for the abnormality seen on chest x-ray, and likely is indicati ve of pulmonary hypertension. 2. Interstitial disease in both lung bases, perhaps due to atelectasis, fibrosis, or mild interstitia l pulmonary edema. Findings are worse on the right, and there is also a trace right pleural effusion. 3. Cardiomegaly, right-sided prominent. 4. Trace amount of perihepatic ascites. 5. Splenomegaly. PQRS Compliance Statement: One or more of the following individualized dose reduction techniques were utilized for this examinat ion: 1. Automated exposure control 2. Adjustment of the mA and/or kV according to patient size 3. Use of iterative reconstruction technique Electronically signed by: Gaurav Elliott MD (09/03/2020 3:57 PM) [id number]
== END ==
LOC: KCIC CT 09:10
PROVIDERS: ATTEND Nurse Practitioner Family
DX: R91.8 Other nonspecific abnormal finding of lung field (principal); J98.4 Other disorders of lung; R16.1 Splenomegaly, not elsewhere classified; I51.7 Cardiomegaly
CPT/HCPCS: 71250; 82565

== ENCOUNTER 2020-09-17 16:28 | Inpatient (IN) | payer OTHER ==
[~2020-09-17] VITALS: Ht 182.9 cm; Wt 88.2 kg
[~2020-09-17 16:28] MED LIST changes: +WARF2TAB96 PO
[2020-09-17] MEDS ORDERED: MORPHINE SULFATE 2 MG/ML VIAL. IV PRN (17:15)
[2020-09-17] MEDS ORDERED: LORazepam INTENSOL 2 MG/ML ORAL.CONC SL PRN (17:15)
[2020-09-17] MEDS ORDERED: ACETAMINOPHEN 650 MG SUPP.RECT. PR PRN (17:15)
[2020-09-17] MEDS ORDERED: ATROPINE 1% OPHTH SOLUTION 5ML BOTTLE. SL PRN (17:15)
[2020-09-17] MEDS ORDERED: MORPHINE SULFATE 20 MG/ML CONC SOLUTION. SL PRN ×2 (17:15)
[2020-09-17] MEDS ORDERED: BISACODYL 10 MG SUPP.RECT. PR PRN (17:15)
[2020-09-17] MEDS: MORPHINE SULFATE 2 MG/ML VIAL. IV SCH (19:15)
[2020-09-17 19:40] VITALS: BP 79/44
[2020-09-18] MEDS: MORPHINE SULFATE 2 MG/ML VIAL. IV SCH ×9 (02:11→22:41)
[2020-09-18 08:00] VITALS: BP 72/37
--- NOTE | 2020-09-18 11:48 | PDOC ---
GENERAL General: Patient examined chart reviewed discussed with nursing at length. Patient was here for 15 days on the [facility] service discharged yesterday after aggressive evaluation and treatment for acute on chronic combined systolic and diastolic congestive heart failure, significant leukocytosis with suspected myelodysplasia, failing treatment. Please refer to the history and physical on September 03 and the [facility] hospitalist summary note on September 17 for more details on summary of course and discussion with family. We appreciate subspecialty support and social work and care team. Plan is that the patient will be discharged to [facility] inpatient hospice when bed is available. Documentation from social work yesterday outlines that the [facility] hospice team was to meet with family at home this morning and I understand that they were all in agreement with the hospice inpatient plan. We will continue hospice care here in transfer when bed is available. Discharge orders are written and discharge summary is pending. This encounter is technically a separate admission however the history and physical from September 03 will cover his course of care from that date until he is discharged to inpatient hospice. Time spent today is 30 minutes with greater than 50% in counseling and coordination of care most of which in discussion with nursing and review of extensive records. Problems: (1) Chronic combined systolic (congestive) and diastolic (congestive) heart failure (2) Myelodysplasia (myelodysplastic syndrome) VITAL SIGNS Vital Signs/I&O: Vital Signs Date Time Temp Pulse Resp B/P (MAP) Pulse Ox O2 Delivery O2 Flow Rate FiO2 09/18/20 08:00 Room Air 09/18/20 08:00 100.5 111 24 72/37 (49) 94 100.5 In general the patient is sleeping comfortably unarousable on evaluation Chest is clear to auscultation anteriorly Heart S1-S2 normal tachycardic no murmurs or gallops are noted Abdomen scaphoid soft nontender no masses organomegaly noted Extremity exam is notable for marked cachexia no edema rashes or lesions are noted ALLERGIES Allergies: Allergies Coded Allergies Type Severity Reaction Last Updated Verified I S O L A T I O N *CONTACT* Allergy Unknown 10/15/18 Yes No Known Medication Allergies Allergy Unknown 10/15/18 Yes MEDS Medications: Current Medications Medications (Trade) Dose Ordered Sig/Rakesh Start Time Stop Time Status Last Admin Dose Admin Acetaminophen (Tylenol Supp) 650 mg PRN Q4HRS PRN 09/17/20 17:15 09/18/20 09:00 Atropine Sulfate (Isopto Atropine) 4 drop PRN Q2HR PRN 09/17/20 17:15 Bisacodyl (Dulcolax Supp) 10 mg PRN DAILY PRN 09/17/20 17:15 Lorazepam (Ativan Intensol) 2 mg PRN Q2HRS PRN 09/17/20 17:15 Lorazepam (Ativan) 2 mg PRN Q4HRS PRN 09/17/20 17:15 Morphine Sulfate (Morphine Sulfate) 2 mg PRN Q1HR PRN 09/17/20 17:15 Morphine Sulfate (Roxanol Conc) 10 mg PRN Q1HR PRN 09/17/20 17:15 Current Medications Medications (Trade) Dose Ordered Sig/Rakesh Route PRN Reason Start Time Stop Time Status Last Admin Dose Admin Morphine Sulfate (Morphine Sulfate) 2 mg Q3HRS IV 09/17/20 18:00 09/18/20 09:00 Acetaminophen (Tylenol Supp) 650 mg PRN Q4HRS PRN NM MILD PAIN / TEMP > 100.3'F 09/17/20 17:15 09/18/20 09:00 ASSESSMENT & PLAN A&P Plan as noted above This note was created using [employer] and may have omissions and/or errors due to the nature of real-time voice supply chain manager. Justifications for Admission Other Justification KRISS GALVEZ MD Sep 18, 2020 11:48
--- NOTE | 2020-09-18 19:08 | NUR ---
Pt's scheduled Morphine at 1800 was held due to giving the pt Morphine at 1700 and when re-assessing the patient the patient did not need the 1800 dose.
[2020-09-18 19:36] VITALS: BP 60/37
[2020-09-19] MEDS: MORPHINE SULFATE 2 MG/ML VIAL. IV SCH ×4 (03:03→09:00)
[2020-09-19 08:00] VITALS: BP 68/33
[2020-09-19] MEDS ORDERED: NALOXONE 0.4 MG/ML VIAL. IV PRN (09:45)
[2020-09-19] MEDS ORDERED: IV NORMAL SALINE 1000ML BAG 1,000 ML IV SCH (09:45)
[2020-09-19] MEDS ORDERED: MORPHINE SULFATE 30 ML IV PRN ×2 (09:45→16:00)
--- NOTE | 2020-09-19 14:29 | PDOC ---
GENERAL General: Patient examined chart reviewed no change overnight. Discussed with nursing who clarifies that the [facility] inpatient hospice program is typically done right here at the hospital and that is why patient has been transitioned to a different account number. He will likely move from the telemetry unit when a bed is available up on the fourth or fifth floor. The [facility] RN rounded today and is asking for continuous morphine infusion at 5 cc/h increased to 10 as needed. That is being delivered through a QUAL RESEARCH MANAGER pump. There is no breakthrough symptoms medications needed at this point. Appreciate hospice team support. Continue current management otherwise. Problems: (1) Myelodysplasia (myelodysplastic syndrome) (2) Chronic combined systolic (congestive) and diastolic (congestive) heart failure VITAL SIGNS Vital Signs/I&O: Vital Signs Date Time Temp Pulse Resp B/P (MAP) Pulse Ox O2 Delivery O2 Flow Rate FiO2 09/19/20 11:07 94 Room Air 09/19/20 08:00 96.9 100 18 68/33 (45) 96.9 I & O 09/18/20 09/18/20 09/19/20 15:00 23:00 07:00 Intake Total 0 ml 0 ml 0 ml Balance 0 ml 0 ml 0 ml Patient is laying comfortably in bed on his back respirations are nonlabored and no congestion noted Chest bilateral equal air entry though diminished throughout Heart S1-S2 normal tachycardic 2 x 6 systolic murmur noted loudest at the left sternal border ALLERGIES Allergies: Allergies Coded Allergies Type Severity Reaction Last Updated Verified I S O L A T I O N *CONTACT* Allergy Unknown 10/15/18 Yes No Known Medication Allergies Allergy Unknown 10/15/18 Yes MEDS Medications: Current Medications Medications (Trade) Dose Ordered Sig/Rakesh Route PRN Reason Start Time Stop Time Status Last Admin Dose Admin Sodium Chloride 1,000 ml @ 25 mls/hr Q24H IV 09/19/20 09:45 09/19/20 10:34 Morphine Sulfate 30 ml @ 0 mls/hr CONT PRN PRN IV PER PROTOCOL 09/19/20 09:45 09/19/20 13:56 DC 09/19/20 10:37 Current Medications Medications (Trade) Dose Ordered Sig/Rakesh Start Time Stop Time Status Last Admin Dose Admin Acetaminophen (Tylenol Supp) 650 mg PRN Q4HRS PRN 09/17/20 17:15 09/18/20 09:00 Atropine Sulfate (Isopto Atropine) 4 drop PRN Q2HR PRN 09/17/20 17:15 Bisacodyl (Dulcolax Supp) 10 mg PRN DAILY PRN 09/17/20 17:15 Lorazepam (Ativan Intensol) 2 mg PRN Q2HRS PRN 09/17/20 17:15 Lorazepam (Ativan) 2 mg PRN Q4HRS PRN 09/17/20 17:15 Morphine Sulfate 30 ml @ 0 mls/hr CONT PRN PRN 09/19/20 16:00 Morphine Sulfate (Morphine Sulfate) 2 mg PRN Q1HR PRN 09/17/20 17:15 09/18/20 17:02 Morphine Sulfate (Roxanol Conc) 10 mg PRN Q1HR PRN 09/17/20 17:15 Naloxone HCl (Narcan) 0.4 mg PRN Q2MIN PRN 09/19/20 09:45 Sodium Chloride 1,000 ml @ 25 mls/hr Q24H 09/19/20 09:45 09/19/20 10:34 ASSESSMENT & PLAN A&P Plan as noted above This note was created using [employer] and may have omissions and/or errors due to the nature of real-time voice coal unloader. Justifications for Admission Other Justification KRISS GALVEZ MD Sep 19, 2020 14:29
[2020-09-19 19:50] VITALS: BP 81/43
--- NOTE | 2020-09-20 00:08 | NUR ---
Patient transferred to room 440 on P500 bed with CIRCULAR STUFFER. Report given to Nadine IBANEZ.
--- NOTE | 2020-09-20 04:40 | NUR ---
At 0440 patient was found without respirations or heartbeat. Pupils are fixed. Skin is cool to touch. Nursing foundry supervisor notified. Call placed to [facility]. Waiting for return call.
--- NOTE | 2020-09-20 05:10 | NUR ---
Dr. Yadav notified of patient's . 2nd page placed to [facility]. Waiting for return call.
--- NOTE | 2020-09-20 06:53 | NUR ---
Patient's family is on the way to the hospital per patient's son. [facility] nurse ethylbenzene converter operator called to check on family's arrival time around 0530. She will contact family later this morning.
--- NOTE | 2020-09-20 09:57 | NUR ---
PT BELONGINGS TAKEN BY . PT LABELS PLACED AND PT WAS TAKEN TO DEB.
== END 2020-09-20 04:40 | DRG 291 ==
LOC: 2 NORTH 16:28 → 4 NORTH 09-20 00:07
PROVIDERS: ADMIT Internal Medicine; ATTEND Internal Medicine
DX: I13.0 Hypertensive heart and chronic kidney disease with heart failure and stage 1 through stage 4 chronic kidney disease, or unspecified chronic kidney disease (principal); E43 Unspecified severe protein-calorie malnutrition; J18.9 Pneumonia, unspecified organism; I50.43 Acute on chronic combined systolic (congestive) and diastolic (congestive) heart failure; I48.21 Permanent atrial fibrillation; J44.0 Chronic obstructive pulmonary disease with (acute) lower respiratory infection; E78.5 Hyperlipidemia, unspecified; I49.5 Sick sinus syndrome; I25.10 Atherosclerotic heart disease of native coronary artery without angina pectoris; I42.9 Cardiomyopathy, unspecified; N18.30 Chronic kidney disease, stage 3 unspecified; E11.22 Type 2 diabetes mellitus with diabetic chronic kidney disease; D46.9 Myelodysplastic syndrome, unspecified; Z95.0 Presence of cardiac pacemaker; Z68.26 Body mass index [BMI] 26.0-26.9, adult
CPT/HCPCS: 94760; A4314; J2270; J7030; 99285-25; G0378